=== PATIENT | male | born 1960 | race Caucasian/White ===

== ENCOUNTER 2016-07-26 16:08 | Inpatient (IN) | payer MEDICARE, MEDICAID ==
[~2016-07-26] VITALS: Ht 182.9 cm; Wt 91.6 kg
[~2016-07-26 16:08] MED LIST: CARV12.5 PO; CHRO200T3 PO; GABA300C3 PO; KLOR20TA6 PO; LANTINJ SQ; LISI40TA PO; NOVOLOGSS SQ; TAMS0.4C67 PO; VITA100T5 PO; VITA100T65 PO; VITA50TA10 PO
[2016-07-26 16:14] VITALS: BP 138/87; PULSE 81; RESP 16; TEMP 98.4; O2SAT 96
[2016-07-26] MEDS ORDERED: CORE25TA PO (16:30)
[2016-07-26] MEDS ORDERED: K-DUR PO (16:30)
[2016-07-26] MEDS ORDERED: GABA300C5 PO (16:30)
[2016-07-26] MEDS ORDERED: ASCO250C CHEW (16:30)
[2016-07-26] MEDS ORDERED: TAMS5CAP PO (16:30)
[2016-07-26] MEDS ORDERED: LISI40TA PO (16:30)
[2016-07-26] MEDS ORDERED: LANTINJ SQ (16:30)
[2016-07-26] MEDS ORDERED: VANCOMYCIN INJ 1,350 MG in SODIUM CHLORID 0.9% 500 ML INJ 500 ML IV ONE (16:45)
[2016-07-26] MEDS ORDERED: TETANUS/DIPHTHERIA TOXOID ADULT 0.5 ML VIAL IM ONE (16:45)
[2016-07-26 16:53] VITALS: RESP 16; O2SAT 96
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
[2016-07-26 17:07] LABS: AUTOMATED NEUTROPHIL # 7.3 TH/MM3 (1.8-7.7); BASOPHIL % 0.3 % (0.0-2.0); EOSINOPHIL # 0.1 TH/MM3 (0-0.4); EOSINOPHIL % 1.5 % (0.0-4.0); HEMATOCRIT 35.9 % (39.0-51.0); LYMPH % 14.4 % (9.0-44.0); LYMPHOCYTE # 1.3 TH/MM3 (1.0-4.8); MEAN CELL VOLUME 73.2 FL (80.0-100.0); MEAN CORPUSCULAR HEMOGLOBIN 23.5 PG (27.0-34.0); MEAN CORPUSCULAR HGB CONC 32.1 % (32.0-36.0); MONO % 6.9 % (0.0-8.0); NEUT % 76.9 % (16.0-70.0); PLATELET COUNT 385 TH/MM3 (150-450); RED BLOOD COUNT 4.91 MIL/MM3 (4.50-5.90); RED CELL DISTRIBUTION WIDTH 14.6 % (11.6-17.2); WHITE BLOOD COUNT 9.3 TH/MM3 (4.0-11.0)
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
[2016-07-26 17:09] LABS: HEMO FLAGS AUTO DIFF
[2016-07-26 17:18] LABS: CHLORIDE 95 MEQ/L (98-107); POTASSIUM 4.5 MEQ/L (3.5-5.1); SODIUM (NA) 132 MEQ/L (136-145)
[2016-07-26 17:22] LABS: ANION GAP 8 MEQ/L (5-15); BICARBONATE 28.9 MEQ/L (21.0-32.0)
[2016-07-26 17:24] LABS: APTT (PATIENT) 28.9 SEC (24.3-30.1); INTERNATIONAL NORMALIZED RATIO 1.2 RATIO; PROTHROMBIN TIME - PATIENT 12.8 SEC (9.8-11.6)
[2016-07-26 17:30] LABS: ALKALINE PHOSPHATASE 290 U/L (45-117); ALT (GPT) 32 U/L (12-78); AST (GOT) 30 U/L (15-37); BLOOD UREA NITROGEN 20 MG/DL (7-18); GLOMERULAR FILTRATION RATE 62 ML/MIN (>89); TOTAL BILIRUBIN ADULT 0.4 MG/DL (0.2-1.0)
[2016-07-26] MEDS ORDERED: cefTRIAXone INJ 2,000 MG in SODIUM CHLORIDE 0.9% INJ 100 ML IV ONE (17:45)
[2016-07-26 17:55] LABS: BLOOD, URINE LARGE (NEG); KETONE, URINE NEG (NEG); NITRITE,URINE NEG (NEG); PH, URINE 5.5 (5.0-8.5)
[2016-07-26 18:00] LABS: GLUCOSE,URINE 1000 OR GREATER mg/dL (NEG)
[2016-07-26] MEDS ORDERED: INSULIN HUMAN REGULAR 1,000 UNITS/10 ML VIAL SQ ONE (18:00)
[2016-07-26 18:02] LABS: PLATELET ESTIMATE SMEAR NORMAL (NORMAL); PLATELET MORPHOLOGY NORMAL (NORMAL); SCAN/DIFF AUTO DIFF CONFIRMED
[2016-07-26 18:10] LABS: URINE COLOR AMBER (YELLW/STRAW)
[2016-07-26 18:13] LABS: BACTERIA, URINE FEW /hpf; RBC, URINE INNUM /hpf (0-3); SQUAMOUS EPITHELIAL CELL URINE 0-2 /hpf (0-5)
[2016-07-26 18:14] LABS: COMMENT (UR) CULTURE INDICATED; CULTURE IF INDICATED CULTURE INDICATED
[2016-07-26] MEDS ORDERED: MORPHINE SULFATE 4 MG/ML INJ IV PUSH ONE ×2 (18:30→21:00)
[2016-07-26] MEDS ORDERED: GADODIAMIDE PF 287 MG/ML 20 ML VIAL (for RAD MRI) IV ONE (19:37)
[2016-07-26 19:55] VITALS: BP 150/86; PULSE 71; RESP 18; TEMP 98.3; O2SAT 94
[2016-07-26] MEDS ORDERED: INSULIN HUMAN REGULAR 1,000 UNITS/10 ML VIAL IVP ONE (20:15)
--- NOTE | 2016-07-26 20:16 | PD ---
Physical Exam Time Seen by Provider: 20:[address] Ferguson with this patient with me to review the MRI of the right foot and to make a disposition. The patient also has an elevated blood sugar of 456 drawn at 1650. He has received 8 units of Novolin R at 1800 and the Accu-Chek now is 316. He will get another 8 units of regular insulin. Data Data Last Documented VS Vital Signs Date Time Temp Pulse Resp B/P Pulse Ox O2 Delivery O2 Flow Rate FiO2 07/26/16 19:55 98.3 71 18 150/86 94 Room Air Orders Complete Blood Count With Diff (07/26/16 16:40) Comprehensive Metabolic Panel (07/26/16 16:40) Prothrombin Time / Inr (Pt) (07/26/16 16:40) Act Partial Throm Time (Ptt) (07/26/16 16:40) Lactic Acid Sepsis Protocol (07/26/16 16:40) Urinalysis - C+S If Indicated (07/26/16 16:40) Blood Culture (07/26/16 16:40) Iv Access Insert/Monitor (07/26/16 16:40) Oximetry (07/26/16 16:40) Foot, Complete ([id number]) (07/26/16 ) Vancomycin Inj (Vancomycin Inj) (07/26/16 16:45) Tetanus/Diphtheria Tox Adult (Tetanus/Di (07/26/16 16:45) Ceftriaxone Inj (Rocephin Inj) (07/26/16 17:45) Consult Podiatry (07/26/16 ) (Hub Use Only)Inp Phy Cons/Ref (07/26/16 ) Insulin Human Regular Inj (Novolin R Inj (07/26/16 18:00) Urine Culture (07/26/16 17:30) Morphine Inj (Morphine Inj) (07/26/16 18:30) Mri Foot W&W/O Contrast (07/26/16 ) Gadodiamide Pf Inj (Omniscan Pf Inj) (07/26/16 19:37) Insulin Human Regular Inj (Novolin R Inj (07/26/16 20:15) Morphine Inj (Morphine Inj) (07/26/16 21:00) Labs Laboratory Tests Test 07/26/16 07/26/16 07/26/16 16:45 16:50 17:30 Lactic Acid Level 1.4 mmol/L White Blood Count 9.3 TH/MM3 Red Blood Count 4.91 MIL/MM3 Hemoglobin 11.5 GM/DL Hematocrit 35.9 % Mean Corpuscular Volume 73.2 FL Mean Corpuscular Hemoglobin 23.5 PG Mean Corpuscular Hemoglobin 32.1 % Concent Red Cell Distribution Width 14.6 % Platelet Count 385 TH/MM3 Mean Platelet Volume 7.8 FL Neutrophils (%) (Auto) 76.9 % Lymphocytes (%) (Auto) 14.4 % Monocytes (%) (Auto) 6.9 % Eosinophils (%) (Auto) 1.5 % Basophils (%) (Auto) 0.3 % Neutrophils # (Auto) 7.3 TH/MM3 Lymphocytes # (Auto) 1.3 TH/MM3 Monocytes # (Auto) 0.6 TH/MM3 Eosinophils # (Auto) 0.1 TH/MM3 Basophils # (Auto) 0.0 TH/MM3 CBC Comment AUTO DIFF Differential Comment AUTO DIFF CONFIRMED Platelet Estimate NORMAL Platelet Morphology Comment NORMAL Prothrombin Time 12.8 SEC Prothromb Time International 1.2 RATIO Ratio Activated Partial 28.9 SEC Thromboplast Time Sodium Level 132 MEQ/L Potassium Level 4.5 MEQ/L Chloride Level 95 MEQ/L Carbon Dioxide Level 28.9 MEQ/L Anion Gap 8 MEQ/L Blood Urea Nitrogen 20 MG/DL Creatinine 1.20 MG/DL Estimat Glomerular Filtration 62 ML/MIN Rate Random Glucose 456 MG/DL Calcium Level 8.8 MG/DL Total Bilirubin 0.4 MG/DL Aspartate Amino Transf 30 U/L (AST/SGOT) Alanine Aminotransferase 32 U/L (ALT/SGPT) Alkaline Phosphatase 290 U/L Total Protein 8.6 GM/DL Albumin 2.0 GM/DL Urine Color FELICIANO Urine Turbidity HAZY Urine pH 5.5 Urine Specific [place] GREATER THAN 1.035 Urine Protein 100 mg/dL Urine Glucose (UA) 1000 OR GREATER mg/dL Urine Ketones NEG mg/dL Urine Occult Blood LARGE Urine Nitrite NEG Urine Bilirubin NEG Urine Leukocyte Esterase NEG Urine RBC INNUM /hpf Urine WBC 20-24 /hpf Urine WBC Clumps FEW Urine Squamous Epithelial 0-2 /hpf Cells Urine Bacteria FEW /hpf Microscopic Urinalysis Comment CULTURE INDICATED MDM Medical Record Reviewed: Yes Supervised Visit with ADAM: Yes Interpretation(s) The MRI of the left foot with and without contrast shows distractive change an abnormal enhancement involving the base of the first metatarsal consistent with osteomyelitis. The patient also has subluxation/dislocation of the second through fifth metatarsals with extensive degenerative change in the metatarsal tarsal joints. The CBC shows a hemoglobin of 11.5, hematocrit of 35.9 with 77% neutrophils but is otherwise unremarkable. The urine shows feliciano color, hazy turbidity, specific gravity of greater than 1.035, 100 protein, 1000 or greater glucose, large occult blood, innumerable red cells with 20-24 white cells and few white cell clumping's and few bacteria and culture is indicated. The coagulation profile shows ProTime of 12.8, INR 1.2, APTT of 28.9. The complete metabolic profile shows a sodium of 132, BUN 20, GFR of 62, glucose 456 with alkaline phosphatase 290, total protein 8.6 and albumin 2.0. Lactic acid is normal. At 2100, the Accu-Chek is 187. Differential Diagnosis Osteomyelitis right foot, cellulitis right foot, diabetes mellitus poor control , dehydration, electrolyte disorder, septic arthritis, urinary tract infection Narrative Course The patient has osteomyelitis of the right first metatarsal. He also has diabetes mellitus poor control. We did reduce the sugar to 187 here in emergency department thus far, he came in with a blood sugar of 456. He has no primary care physician. Physician Communication Physician Communication I discussed the patient with doctors Parvez and Mihir. The patient will be admitted to [facility] because Dr. Ash needs to do surgery there. The patient will be admitted to Dr. Hannon. Diagnosis Primary Impression: Osteomyelitis of ankle or foot, left, acute Additional Impressions: Septic arthritis Qualified Code: M00.9 - Septic arthritis of left foot, due to unspecified organism Hyperglycemia due to type 2 diabetes mellitus Qualified Code: E11.65 - Type 2 diabetes mellitus with hyperglycemia, with long-term current use of insulin UTI (urinary tract infection) Qualified Code: N30.01 - Acute cystitis with hematuria Admitting Information Admitting Physician Requests: Admit Andrew Vera MD Jul 26, 2016 20:15
--- NOTE | 2016-07-26 20:17 | RADHPO ---
EXAM DATE/TIME: 07/26/2016 19:25 [facility] COMPARISON: FOOT LEFT COMPLETE ([id number]), July 26, 2016, 16:53. INDICATIONS : Osteomyelitis. Wound mid left foot on plantar surface. CONTRAST: 18 cc Omniscan (gadodiamide) IV MEDICAL HISTORY : Hypertension. Diabetes mellitus type 2. Carcinoma, testicular. SURGICAL HISTORY : Testicle removed with implant. ENCOUNTER: Subsequent ACUITY: 3 months PAIN SCORE: 6/10 LOCATION: Left foot. TECHNIQUE: Multiplanar, multisequence MRI examination was performed without contrast and after the intravenous a dministration of gadolinium. FINDINGS: There is extensive destructive change involving the base of the first metatarsal which appears expand ed and poorly defined. The margins the bones are difficult to identify and there is narrow edema and abnormal enhancement mid and proximal first metatarsal. There is extensive adjacent soft tissue swell ing and enhancement in this region. There is a focal ulcer along the medial volar surface of the midf oot with ill-defined fluid collection at the level of the base of the first metatarsal. This demonstr ates peripheral enhancement and low signal fluid centrally. This measures up to approximately 2.6 x 1 .1 cm in greatest diameter and is consistent with an abscess. There is an adjacent smaller fluid nataly ection more distally in the volar soft tissues with peripheral enhancement and central fluid collecti on measuring approximately 9-10 mm in greatest diameter. The second through fifth metatarsal bases appear subluxed or dislocated laterally as on the plain jyoti m. These demonstrate no definite enhancement or destructive change. Extensive degenerative changes ar e noted in the metatarsal tarsal joints with surrounding diffuse soft tissue swelling and prominence. CONCLUSION: 1. Destructive change and abnormal enhancement involving the base of the first metatarsal consistent with osteo-myelitis. 2. Adjacent enhancing fluid collections consistent with abscesses in the volar soft tissues. This is adjacent to the known ulcer. 3. Subluxation/dislocation of the second through fifth metatarsals with extensive degenerative change in the metatarsal tarsal joints. Oscar Bazan MD on July 26, 2016 at 20:01 Board Certified Radiologist. This report was verified electronically.
[2016-07-26] MEDS ORDERED: Vancomycin Consult Pharmacy 1 EA OTHER SCH (21:15)
[2016-07-26] MEDS ORDERED: SODIUM CHLORIDE 0.9% FLUSH 5 ML FLUSH FLUSH PRN (21:15)
[2016-07-26] MEDS ORDERED: NALOXONE HCL 0.4 MG/ML AMP IV PRN (21:15)
[2016-07-26] MEDS: PIPERACIL-TAZO 4.5 GM PREMIX 100 ML IV SCH (21:55)
[2016-07-26 23:30] VITALS: BP 119/73; PULSE 71; RESP 18; TEMP 98.3; O2SAT 96
[2016-07-27] VITALS (8 sets, daily range): BP systolic 146–208; BP diastolic 82–111; PULSE 68–90; RESP 16–20; TEMP 96.8–98.1; O2SAT 93–99
[2016-07-27] MEDS: MORPHINE SULFATE 4 MG/ML INJ IV PUSH PRN ×4 (00:16→15:46)
[2016-07-27] MEDS: PIPERACIL-TAZO 4.5 GM PREMIX 100 ML IV SCH ×4 (03:54→22:42)
[2016-07-27 06:12] LABS: AUTOMATED NEUTROPHIL # 6.8 TH/MM3 (1.8-7.7); BASOPHIL # 0.1 TH/MM3 (0-0.2); BASOPHIL % 0.7 % (0.0-2.0); EOSINOPHIL # 0.3 TH/MM3 (0-0.4); EOSINOPHIL % 2.7 % (0.0-4.0); HEMATOCRIT 32.7 % (39.0-51.0); LYMPH % 19.2 % (9.0-44.0); LYMPHOCYTE # 1.9 TH/MM3 (1.0-4.8); MEAN CELL VOLUME 73.9 FL (80.0-100.0); MEAN CORPUSCULAR HEMOGLOBIN 24.2 PG (27.0-34.0); MEAN CORPUSCULAR HGB CONC 32.8 % (32.0-36.0); MONO % 6.9 % (0.0-8.0); NEUT % 70.5 % (16.0-70.0); PLATELET COUNT 343 TH/MM3 (150-450); RED BLOOD COUNT 4.42 MIL/MM3 (4.50-5.90); RED CELL DISTRIBUTION WIDTH 14.8 % (11.6-17.2); WHITE BLOOD COUNT 9.8 TH/MM3 (4.0-11.0)
[2016-07-27 06:13] LABS: HEMO FLAGS AUTO DIFF
[2016-07-27 06:19] LABS: POTASSIUM 4.3 MEQ/L (3.5-5.1)
[2016-07-27 06:22] LABS: BICARBONATE 29.5 MEQ/L (21.0-32.0)
[2016-07-27 06:26] LABS: PLATELET ESTIMATE SMEAR NORMAL (NORMAL); PLATELET MORPHOLOGY NORMAL (NORMAL); SCAN/DIFF AUTO DIFF CONFIRMED
[2016-07-27] MEDS: LACTOBACILLUS ACIDOPHILUS TAB PO SCH ×3 (09:00→17:48)
[2016-07-27] MEDS: SODIUM CHLORIDE 0.9% FLUSH 5 ML FLUSH FLUSH SCH ×2 (09:02→21:00)
[2016-07-27] MEDS ORDERED: DEXTROSE 50% IN WATER 50 ML VIAL(D50) IV PUSH PRN (09:15)
[2016-07-27] MEDS ORDERED: GLUCAGON 1 MG/ML VIAL OTHER PRN (09:15)
[2016-07-27] MEDS ORDERED: ACETAMINOPHEN 1000 MG/100 ML VIAL IV ONE (09:30)
[2016-07-27] MEDS: SODIUM CHLOR 0.9% 1000 ML INJ 1,000 ML IV SCH (09:39)
[2016-07-27] MEDS: VANCOMYCIN INJ 2,000 MG in SODIUM CHLORID 0.9% 500 ML INJ 500 ML IV SCH (11:36)
[2016-07-27] MEDS ORDERED: ONDANSETRON HCL 4 MG/2 ML VIAL IV PUSH ONE (12:00)
[2016-07-27] MEDS ORDERED: PROPOFOL 200 MG/20 ML AMP IV ONE (12:00)
[2016-07-27] MEDS: INSULIN NovoLIN REGULAR SUPPLEMENTAL SCALE SQ SCH ×3 (12:00→21:00)
[2016-07-27] MEDS ORDERED: PHENYLEPH/NS 1000 MCG/10 ML SYR IV ONE (12:00)
[2016-07-27] MEDS ORDERED: ePHEDrine/NS 25 MG/5 ML SYR IV ONE (12:00)
[2016-07-27] MEDS ORDERED: POTA-163 PO (16:02)
[2016-07-27] MEDS: LISINOPRIL 20 MG TAB PO SCH (17:44)
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
[2016-07-27] MEDS ORDERED: LIDOCAINE HCL 2% 50 ML VIAL ONE (18:36)
[2016-07-27] MEDS ORDERED: BUPIVACAINE HCL PF 0.5% 30 ML VIAL ONE (18:36)
[2016-07-27] MEDS: CARVEDILOL 12.5 MG TAB PO SCH (19:11)
[2016-07-27] MEDS ORDERED: GENTAMICIN SULFATE 80 MG/2 ML VIAL ONE (19:13)
[2016-07-27] MEDS ORDERED: NEOMYCIN/POLYMYXIN 1 ML G.U. IRRIGANT IR ONE (19:59)
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
--- NOTE | 2016-07-27 20:58 | HHI.PR ---
Immediate Post Op Note Procedure Date: Jul 27, 2016 Pre Op Diagnosis: Abscess with charcot vs osteomyelitis L foot Post Op Diagnosis: Same Surgeon: Mane Ash DPM Tow Motor Driver(s): Staff Procedure: Incision and drainage Left foot with bone biopsy Findings: Consistent with diagnosis. Plantar medial ulceration excised and tract probed to bone of base of 2nd metatarsal area. The bone was removed and sent to pathology for bone biopsy to determine if infected. Minimal purulence noted and no necrotic tissue noted. No tracking noted. All tissues appeared viable and were healthy/bleeding, except immediate wound area, which was excised in full. The wound was copiously irrigated with 3L NS with gentamicin, and closed with 2- 0 nylon. Will await bone biopsy to determine if further surgery required If required, plan to do Sunday Complications: none Specimen(s) removed: bone L foot to pathology culture L foot Estimated blood loss: 20mL Anesthesia: General, Local (4mL 2% lidocaine plain, 4mL 0.5% marcaine plain) Drains: None IVF Tourniquet time (min at mmHg) n/a Patient to: PACU Patient Condition: Good Date/Time of Procedure: SEE SURGICAL CARE RECORD Mane Ash DPM Jul 27, 2016 20:58
[2016-07-27] MEDS ORDERED: LABETALOL HCL 100 MG/20 ML VIAL ONE (21:08)
[2016-07-27] MEDS ORDERED: MORPHINE SULFATE 4 MG/ML INJ ONE (21:16)
[2016-07-27] MEDS ORDERED: hydrALAZINE HCL 20 MG/ML VIAL ONE (21:44)
[2016-07-27] MEDS ORDERED: DO NOT ADM ANY ANTICOAGULANT DRUGS XX PRN (21:45)
[2016-07-27] MEDS ORDERED: hydrALAZINE HCL 20 MG/ML VIAL IV ONE (21:48)
--- NOTE | 2016-07-27 22:44 | RADRPT ---
EXAM DATE/TIME: 07/27/2016 21:06 [facility] COMPARISON: FOOT LEFT COMPLETE ([id number]), July 26, 2016, 16:53. INDICATIONS : Post Op I&D Left Foot. MEDICAL HISTORY : Hypertension. Diabetes mellitus type 2. Carcinoma, testicular. SURGICAL HISTORY : Testicle removed with implant. ENCOUNTER: Initial ACUITY: 1 day PAIN SCORE: 0/10 LOCATION: Left Foot. FINDINGS: Advanced bony changes of Charcot foot again noted. Focal areas of osteopenia involving the first meta tarsal as well as the bases of the lateral metatarsals again noted worrisome for osteomyelitis. Soft tissue air and swelling, mainly medial forefoot and midfoot region. No evidence of operative complica tion. CONCLUSION: Postoperative appearance with little change Rogerio Caicedo MD on July 27, 2016 at 22:40 Board Certified Radiologist. This report was verified electronically.
[2016-07-27 23:37] LABS: AUTOMATED NEUTROPHIL # 7.1 TH/MM3 (1.8-7.7); BASOPHIL # 0.1 TH/MM3 (0-0.2); BASOPHIL % 0.7 % (0.0-2.0); EOSINOPHIL # 0.2 TH/MM3 (0-0.4); EOSINOPHIL % 2.4 % (0.0-4.0); HEMATOCRIT 33.6 % (39.0-51.0); LYMPH % 14.8 % (9.0-44.0); LYMPHOCYTE # 1.4 TH/MM3 (1.0-4.8); MEAN CELL VOLUME 73.6 FL (80.0-100.0); MEAN CORPUSCULAR HEMOGLOBIN 24.6 PG (27.0-34.0); MEAN CORPUSCULAR HGB CONC 33.5 % (32.0-36.0); MONO % 7.3 % (0.0-8.0); NEUT % 74.8 % (16.0-70.0); PLATELET COUNT 330 TH/MM3 (150-450); RED BLOOD COUNT 4.57 MIL/MM3 (4.50-5.90); RED CELL DISTRIBUTION WIDTH 15.8 % (11.6-17.2); WHITE BLOOD COUNT 9.5 TH/MM3 (4.0-11.0)
[2016-07-27 23:40] LABS: HEMO FLAGS AUTO DIFF
[2016-07-28] VITALS (9 sets, daily range): BP systolic 116–177; BP diastolic 59–85; PULSE 73–87; RESP 16–24; TEMP 96.1–97.5; O2SAT 91–97
[2016-07-28 00:07] LABS: BICARBONATE 26.8 MEQ/L (21.0-32.0)
[2016-07-28 01:43] LABS: PLATELET ESTIMATE SMEAR NORMAL (NORMAL); PLATELET MORPHOLOGY NORMAL (NORMAL); SCAN/DIFF AUTO DIFF CONFIRMED
[2016-07-28] MEDS: PIPERACIL-TAZO 4.5 GM PREMIX 100 ML IV SCH ×4 (04:21→22:18)
[2016-07-28] MEDS: INSULIN NovoLIN REGULAR SUPPLEMENTAL SCALE SQ SCH ×4 (05:03→20:07)
[2016-07-28] MEDS: VANCOMYCIN INJ 2,000 MG in SODIUM CHLORID 0.9% 500 ML INJ 500 ML IV SCH ×2 (05:04→23:18)
[2016-07-28] MEDS: SODIUM CHLOR 0.9% 1000 ML INJ 1,000 ML IV SCH ×2 (05:12→15:15)
[2016-07-28] MEDS: SODIUM CHLORIDE 0.9% FLUSH 5 ML FLUSH FLUSH SCH ×2 (09:00→20:08)
[2016-07-28] MEDS: LACTOBACILLUS ACIDOPHILUS TAB PO SCH ×3 (09:00→16:42)
[2016-07-28] MEDS: LISINOPRIL 20 MG TAB PO SCH (09:00)
[2016-07-28] MEDS: CARVEDILOL 12.5 MG TAB PO SCH ×2 (09:00→20:07)
[2016-07-28] MEDS: ACETAMINOPHEN 1000 MG/100 ML VIAL IV PRN ×2 (16:37→22:18)
[2016-07-28] MEDS: cloNIDine HCL 0.1 MG TAB PO PRN (17:35)
--- NOTE | 2016-07-28 20:31 | PD.POD ---
Subjective Podiatric Problems Infection L foot, charcot vs osteomyelitis s/p I&D with bone biopsy L foot 07/27/16 Mihir Past Med/Surg/Social History Past Medical History Endocrine: REPORTS HX OF: Diabetes mellitus Cardiovascular: REPORTS HX OF: Hypertension Musculoskeletal: REPORTS HX OF: Osteoarthritis Cancer - male: REPORTS HX OF: Testicular cancer Social History Smoking Status: Never Smoker Objective Vital Signs Vital Signs Date Time Temp Pulse Resp B/P Pulse Ox O2 Delivery O2 Flow Rate FiO2 07/28/16 19:55 78 07/28/16 19:50 96.3 79 20 133/69 94 07/28/16 16:00 96.4 82 17 168/85 93 07/28/16 11:46 96.1 74 17 165/83 94 07/28/16 08:54 96.9 82 16 167/85 93 07/28/16 04:00 97.5 83 20 154/83 91 07/28/16 02:42 77 07/28/16 00:00 96.7 87 20 116/59 97 07/27/16 22:20 97.4 82 14 132/79 97 Nasal Cannula 3 07/27/16 22:00 78 14 159/89 97 Nasal Cannula 3 07/27/16 21:46 77 14 181/105 97 Nasal Cannula 3 07/27/16 21:30 75 14 181/102 97 Nasal Cannula 3 07/27/16 21:15 85 16 184/98 96 Nasal Cannula 3 07/27/16 21:00 85 16 170/98 96 Nasal Cannula 3 07/27/16 21:00 73 19 177/100 96 Nasal Cannula 3 07/27/16 20:45 80 17 166/96 96 Nasal Cannula 3 07/27/16 20:35 98.4 80 16 145/83 96 Nasal Cannula 3 Coded Allergies: Glyburide (Verified Allergy, Severe, RASH, 07/26/16) Physical Exam Remarks Bandage clean, dry, intact L foot Assessment & Plan A/P Infection L foot, charcot vs osteomyelitis s/p I&D with bone biopsy L foot 07/27/16 Mihir Await bone biopsy. Further surgery vs 6 weeks IV antibiotics pending results. NWB L foot with walker Mane Ash DPM Jul 28, 2016 20:31
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
[2016-07-28] MEDS ORDERED: PHARMACY ORDERED LAB XX ONE (22:45)
[2016-07-28] MEDS ORDERED: LIDOCAINE HCL 5% PATCH TD ONE (23:00)
--- NOTE | 2016-07-29 00:48 | HHI.PR ---
Subjective Remarks deferred entry - patient seen at 5 pm patient states that he had hematuria and thinks it is the morphine and opiates causing it, so refuses to take them denies cp/sob c/o pain in post surgical extremity Bp elevated denie fevers/chills Objective Vitals Vital Signs Date Time Temp Pulse Resp B/P Pulse Ox O2 Delivery O2 Flow Rate FiO2 07/28/16 23:17 96.3 73 24 177/82 96 07/28/16 19:55 78 07/28/16 19:50 96.3 79 20 133/69 94 07/28/16 16:00 96.4 82 17 168/85 93 07/28/16 11:46 96.1 74 17 165/83 94 07/28/16 08:54 96.9 82 16 167/85 93 07/28/16 04:00 97.5 83 20 154/83 91 07/28/16 02:42 77 I/O 07/28/16 07/28/16 07/28/16 07/29/16 07/29/16 07/29/16 07:00 15:00 23:00 07:00 15:00 23:00 Intake Total 895 ml 1210 ml 592 ml Output Total 200 ml Balance 695 ml 1210 ml 592 ml Intake Oral 240 ml 600 ml 480 ml IV Total 655 ml 610 ml 112 ml Output Urine Total 200 ml # Voids 2 6 # Bowel Movements 0 1 0 Result Diagram: 07/27/166 07/27/16 2316 Imaging Last Impressions Foot X-Ray 07/27/16 0000 Signed Impressions: Service Date/Time: July 21:06 - CONCLUSION: Postoperative appearance with little change Rogerio Caicedo MD Foot MRI 07/26/16 0000 Signed Impressions: Service Date/Time: Tuesday, July 26, 2016 19:25 - CONCLUSION: 1. Destructive change and abnormal enhancement involving the base of the first metatarsal consistent with osteo-myelitis. 2. Adjacent enhancing fluid collections consistent with abscesses in the volar soft tissues. This is adjacent to the known ulcer. 3. Subluxation/dislocation of the second through fifth metatarsals with extensive degenerative change in the metatarsal tarsal joints. Oscar Bazan MD Objective Remarks GENERAL: This is a well-nourished, well-developed patient, in no apparent distress. SKIN: Left foot edematous dressing present C/D/I HEAD: Atraumatic. Normocephalic. No temporal or scalp tenderness. EYES:Extraocular motions intact. No scleral icterus. No injection or drainage. ENT: Nose without bleeding, purulent drainage or septal hematoma. Throat without erythema, tonsillar hypertrophy or exudate. Uvula midline. Airway patent. NECK: Trachea midline. No JVD or lymphadenopathy. Supple, nontender, no meningeal signs. CARDIOVASCULAR: Regular rate and rhythm without murmurs, gallops, or rubs. RESPIRATORY: Clear to auscultation. Breath sounds equal bilaterally. No wheezes , rales, or rhonchi. GASTROINTESTINAL: Abdomen soft, non-tender, nondistended. No guarding. MUSCULOSKELETAL: Extremities without clubbing, cyanosis, or edema. No joint tenderness, effusion, or edema noted. No calf tenderness. Negative Homans sign bilaterally. NEUROLOGICAL: Awake and alert. no focal deficits. Motor and sensory grossly within normal limits. Five out of 5 muscle strength in all muscle groups. Normal speech. A/P Assessment and Plan Mr. 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 Patient found to have Osteomyelitis of toe Osteomyelitis of left foot Pain left foot MRI reveals: Destructive change and abnormal enhancement involving the base of the first metatarsal consistent with osteo-myelitis. 2. Adjacent enhancing fluid collections consistent with abscesses in the volar soft tissues. This is adjacent to the known ulcer. 3. Subluxation/dislocation of the second through fifth metatarsals with extensive degenerative change in the metatarsal tarsal joints. Left foot x ray reviewed by haylie reveals: Grossly abnormal examination suspicious of osteomyelitis and septic arthritis bluxation is at the metatarsal tarsal articulations Blood cultures obtained x2 pending Patient currently on Vancomycin, Zosyn and Rocephin IV 07/28 podiatry consulted. Patient is sp Incision and debridement of the left foot w bone biopsy. fu pathology results. Type 2 diabetes mellitus - Accu-Cheks before meals at bedtime with NovoLog sliding scale insulin 07/28 Bs w imprved control Hypertension/CHF - Resume home medication- Lisinopril 40 mg daily and Coreg 25 mg twice a day - Bp still uncontrolled. Likely due to pain. Will Rx Toradol and IV Acetaminophen. - Clonidine PRN CAD s/p proximal LAD stenting 2006 -Patient reports he has not been on Plavix since 2014 -Does take aspirin 81 mg daily at home- hold aspirin at this time pending surgical procedure Microcytic anemia- hemoglobin 10.7 MCV MCV 73.9 - hemoglobin stable at 11.7 DVT prophylaxis - SCDs Berhane Cain MD Jul 29, 2016 00:48
[2016-07-29] MEDS: SODIUM CHLOR 0.9% 1000 ML INJ 1,000 ML IV SCH ×3 (01:15→20:05)
[2016-07-29] MEDS: PIPERACIL-TAZO 4.5 GM PREMIX 100 ML IV SCH ×4 (03:33→22:06)
[2016-07-29 03:35] VITALS: BP 166/74; PULSE 72; RESP 20; TEMP 96.2; O2SAT 95
[2016-07-29] MEDS: ACETAMINOPHEN 1000 MG/100 ML VIAL IV PRN ×2 (03:39→20:04)
[2016-07-29] MEDS: INSULIN NovoLIN REGULAR SUPPLEMENTAL SCALE SQ SCH ×4 (06:20→20:02)
[2016-07-29 06:49] LABS: AUTOMATED NEUTROPHIL # 4.7 TH/MM3 (1.8-7.7); BASOPHIL # 0.1 TH/MM3 (0-0.2); BASOPHIL % 0.9 % (0.0-2.0); EOSINOPHIL # 0.3 TH/MM3 (0-0.4); EOSINOPHIL % 3.6 % (0.0-4.0); HEMATOCRIT 32.9 % (39.0-51.0); LYMPH % 22.1 % (9.0-44.0); LYMPHOCYTE # 1.6 TH/MM3 (1.0-4.8); MEAN CELL VOLUME 73.8 FL (80.0-100.0); MEAN CORPUSCULAR HEMOGLOBIN 24.4 PG (27.0-34.0); MEAN CORPUSCULAR HGB CONC 33.1 % (32.0-36.0); MONO % 9.7 % (0.0-8.0); NEUT % 63.7 % (16.0-70.0); PLATELET COUNT 333 TH/MM3 (150-450); RED BLOOD COUNT 4.46 MIL/MM3 (4.50-5.90); RED CELL DISTRIBUTION WIDTH 15.9 % (11.6-17.2); WHITE BLOOD COUNT 7.4 TH/MM3 (4.0-11.0)
[2016-07-29 06:56] LABS: ANION GAP 10 MEQ/L (5-15); AST (GOT) 15 U/L (15-37); BICARBONATE 23.5 MEQ/L (21.0-32.0); BLOOD UREA NITROGEN 11 MG/DL (7-18); CHLORIDE 100 MEQ/L (98-107); GLOMERULAR FILTRATION RATE 75 ML/MIN (>89); POTASSIUM 3.8 MEQ/L (3.5-5.1); SODIUM (NA) 133 MEQ/L (136-145)
[2016-07-29 07:01] LABS: ALKALINE PHOSPHATASE 211 U/L (45-117); ALT (GPT) 21 U/L (12-78); TOTAL BILIRUBIN ADULT 0.5 MG/DL (0.2-1.0)
[2016-07-29 07:24] LABS: HEMO FLAGS AUTO DIFF
[2016-07-29 08:00] VITALS: BP 162/89; PULSE 73; RESP 18; TEMP 95.6; O2SAT 96
[2016-07-29] MEDS: SODIUM CHLORIDE 0.9% FLUSH 5 ML FLUSH FLUSH SCH ×2 (08:45→20:03)
[2016-07-29] MEDS: LACTOBACILLUS ACIDOPHILUS TAB PO SCH ×3 (08:45→16:13)
[2016-07-29] MEDS: LISINOPRIL 20 MG TAB PO SCH (08:45)
[2016-07-29] MEDS: CARVEDILOL 12.5 MG TAB PO SCH ×2 (08:45→20:03)
[2016-07-29 09:49] LABS: SCAN/DIFF AUTO DIFF CONFIRMED
[2016-07-29 12:00] VITALS: BP 184/92; PULSE 76; RESP 18; TEMP 96.2; O2SAT 98
[2016-07-29] MEDS ORDERED: REMOVE OLD PATCH TD ONE (12:00)
[2016-07-29] MEDS: VANCOMYCIN INJ 1,500 MG in SODIUM CHLORID 0.9% 500 ML INJ 500 ML IV SCH (12:08)
[2016-07-29] MEDS: DOXAZOSIN MESYLATE 2 MG TAB PO SCH (12:15)
[2016-07-29 13:08] LABS: HDL CHOLESTEROL 26.5 MG/DL (40.0-60.0); LDL CHOLESTEROL 102 MG/DL (0-99)
[2016-07-29] MEDS: LIDOCAINE HCL 5% PATCH TD SCH (14:14)
[2016-07-29 16:00] VITALS: BP 160/100; PULSE 76; RESP 18; TEMP 97; O2SAT 99
[2016-07-29] MEDS: KETOROLAC TROMETHAMINE 60 MG/2 ML (IM) VIAL IM PRN ×2 (16:12→22:13)
[2016-07-29] MEDS: cloNIDine HCL 0.1 MG TAB PO PRN (16:12)
[2016-07-29 17:10] VITALS: BP 144/92
--- NOTE | 2016-07-29 18:13 | PD.POD ---
Subjective Podiatric Problems Infection L foot, charcot vs osteomyelitis s/p I&D with bone biopsy L foot 07/27/16 Mihir Past Med/Surg/Social History Past Medical History Endocrine: REPORTS HX OF: Diabetes mellitus Cardiovascular: REPORTS HX OF: Hypertension Musculoskeletal: REPORTS HX OF: Osteoarthritis Cancer - male: REPORTS HX OF: Testicular cancer Social History Smoking Status: Never Smoker Objective Vital Signs Vital Signs Date Time Temp Pulse Resp B/P Pulse Ox O2 Delivery O2 Flow Rate FiO2 07/29/16 17:10 144/92 Automatic Cuff 07/29/16 16:00 97.0 76 18 160/100 99 07/29/16 12:00 96.2 76 18 184/92 98 07/29/16 08:00 95.6 73 18 162/89 96 07/29/16 03:35 96.2 72 20 166/74 95 07/28/16 23:17 96.3 73 24 177/82 96 07/28/16 19:55 78 07/28/16 19:50 96.3 79 20 133/69 94 Coded Allergies: Glyburide (Verified Allergy, Severe, RASH, 07/26/16) Physical Exam Remarks Incision clean, dry. Erythema appears to be resolving. No drainage. Assessment & Plan A/P Infection L foot, charcot vs osteomyelitis s/p I&D with bone biopsy L foot 07/27/16 Mihir Still awaiting bone biopsy to determine if further surgery required vs 6 weeks IV antibiotics pending results. NWB L foot with walker vs crutches Changed bandage today. Ok to leave intact until dressing change in clinic upon d/c next week. Mane Ash DPM Jul 29, 2016 18:13
[2016-07-29 19:45] VITALS: BP 140/56; PULSE 76; RESP 18; TEMP 97.7; O2SAT 93
[2016-07-29] MEDS: GABAPENTIN 300 MG CAP PO SCH (20:03)
[2016-07-29] MEDS: TAMSULOSIN HCL 0.4 MG CAP PO SCH (20:03)
[2016-07-29] MEDS: REMOVE OLD PATCH T-DERMAL SCH (20:04)
[2016-07-29] MEDS ORDERED: INSULIN DETEMIR 100 UNITS/ML VIAL SQ SCH (21:00)
--- NOTE | 2016-07-29 21:36 | HHI.PR ---
Subjective Remarks Bp elevated Blood sugar in the 300's States had 3 BM's pain controlled denies cp sob Objective Vitals Vital Signs Date Time Temp Pulse Resp B/P Pulse Ox O2 Delivery O2 Flow Rate FiO2 07/29/16 19:45 97.7 76 18 140/56 93 07/29/16 17:10 144/92 Automatic Cuff 07/29/16 16:00 97.0 76 18 160/100 99 07/29/16 12:00 96.2 76 18 184/92 98 07/29/16 08:00 95.6 73 18 162/89 96 07/29/16 03:35 96.2 72 20 166/74 95 07/28/16 23:17 96.3 73 24 177/82 96 I/O 07/28/16 07/28/16 07/28/16 07/29/16 07/29/16 07/29/16 07:00 15:00 23:00 07:00 15:00 23:00 Intake Total 895 ml 1210 ml 592 ml 600 ml 960 ml Output Total 200 ml 600 ml Balance 695 ml 1210 ml 592 ml 0 ml 960 ml Intake Oral 240 ml 600 ml 480 ml 600 ml 960 ml IV Total 655 ml 610 ml 112 ml Output Urine Total 200 ml 600 ml # Voids 2 6 6 # Bowel Movements 0 1 0 0 3 Result Diagram: 07/29/16 0547 07/29/16 0547 Imaging Last Impressions Foot X-Ray 07/27/16 0000 Signed Impressions: Service Date/Time: July 21:06 - CONCLUSION: Postoperative appearance with little change Rogerio Caicedo MD Foot MRI 07/26/16 0000 Signed Impressions: Service Date/Time: Tuesday, July 26, 2016 19:25 - CONCLUSION: 1. Destructive change and abnormal enhancement involving the base of the first metatarsal consistent with osteo-myelitis. 2. Adjacent enhancing fluid collections consistent with abscesses in the volar soft tissues. This is adjacent to the known ulcer. 3. Subluxation/dislocation of the second through fifth metatarsals with extensive degenerative change in the metatarsal tarsal joints. Oscar Bazan MD Objective Remarks GENERAL: This is a well-nourished, well-developed patient, in no apparent distress. SKIN: Left foot edematous dressing present C/D/I HEAD: Atraumatic. Normocephalic. No temporal or scalp tenderness. EYES:Extraocular motions intact. No scleral icterus. No injection or drainage. ENT: Nose without bleeding, purulent drainage or septal hematoma. Throat without erythema, tonsillar hypertrophy or exudate. Uvula midline. Airway patent. NECK: Trachea midline. No JVD or lymphadenopathy. Supple, nontender, no meningeal signs. CARDIOVASCULAR: Regular rate and rhythm without murmurs, gallops, or rubs. RESPIRATORY: Clear to auscultation. Breath sounds equal bilaterally. No wheezes , rales, or rhonchi. GASTROINTESTINAL: Abdomen soft, non-tender, nondistended. No guarding. MUSCULOSKELETAL: Extremities without clubbing, cyanosis, or edema. No joint tenderness, effusion, or edema noted. No calf tenderness. Negative Homans sign bilaterally. NEUROLOGICAL: Awake and alert. no focal deficits. Motor and sensory grossly within normal limits. Five out of 5 muscle strength in all muscle groups. Normal speech. Medications and IVs Current Medications Medications (Trade) Dose Ordered Sig/Jerzy Route Start Time Stop Time Status Last Admin (NS Flush) 2 ml UNSCH PRN FLUSH 07/26/16 21:15 07/27/16 09:50 (NS Flush) 2 ml BID FLUSH 07/27/16 09:00 07/29/16 20:03 Naloxone HCl 0.4 mg 0.4 mg UNSCH PRN IV 07/26/16 21:15 (Vancomycin Consult Pharmacy) 0 ml @ 0 mls/hr UNSCH OTHER 07/26/16 21:15 (Lactinex) 1 tab TID PO 07/27/16 09:00 07/30/16 08:41 (D50w (Vial) Inj) 25 ml UNSCH PRN IV PUSH 07/27/16 09:15 Glucagon 1 mg 1 mg UNSCH PRN OTHER 07/27/16 09:15 (Zosyn 4.5 Gm Premix) 100 ml @ 200 mls/hr Q6H IV 07/27/16 16:00 07/30/16 08:41 (Catapres) 0.1 mg Q6H PRN PO 07/27/16 17:30 07/29/16 16:12 (Coreg) 25 mg BID PO 07/27/16 21:00 07/30/16 08:41 (Prinivil) 40 mg DAILY PO 07/27/16 17:30 07/30/16 08:41 Ketorolac Tromethamine 15 mg 15 mg Q6H PRN IM 07/28/16 15:15 08/02/16 15:14 07/30/16 05:01 (Vancomycin Inj/ NS 500 ml Inj) 515 ml @ 250 mls/hr Q12H IV 07/29/16 12:00 07/30/16 00:02 Miscellaneous Information SPECIFIC LAB TO BE ... ONCE ONCE XX 07/31/16 11:45 07/31/16 11:46 (Cardura) 2 mg DAILY PO 07/29/16 12:15 07/30/16 08:41 (Neurontin) 300 mg BID PO 07/29/16 21:00 07/30/16 08:41 (Flomax) 0.4 mg HS PO 07/29/16 21:00 07/29/16 20:03 (Levemir Inj) 35 units HS SQ 07/29/16 21:00 07/29/16 20:02 (Lidoderm 5% Patch.12 Hr) 1 patch DAILY TD 07/29/16 13:30 07/30/16 08:42 Miscellaneous Information 1 HS T-DERMAL 07/29/16 21:00 07/29/16 20:04 (Tylenol) 650 mg Q4H PRN PO 07/30/16 09:00 (Zofran Inj) 4 mg Q6H PRN IV 07/30/16 09:00 (Colace) 100 mg BID PRN PO 07/30/16 09:00 (Nichole-Colace) 1 tab BID PRN PO 07/30/16 09:00 (Milk Of Magnesia Liq) 30 ml DAILY PRN PO 07/30/16 09:00 (Mag-Al Plus Susp Liq) 30 ml Q6H PRN PO 07/30/16 09:00 (Tums Chew) 1,000 mg TID PRN CHEW 07/30/16 09:00 A/P Assessment and Plan Mr. 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 Patient found to have Osteomyelitis of toe Osteomyelitis of left foot Pain left foot MRI reveals: Destructive change and abnormal enhancement involving the base of the first metatarsal consistent with osteo-myelitis. 2. Adjacent enhancing fluid collections consistent with abscesses in the volar soft tissues. This is adjacent to the known ulcer. 3. Subluxation/dislocation of the second through fifth metatarsals with extensive degenerative change in the metatarsal tarsal joints. Left foot x ray reviewed by haylie reveals: Grossly abnormal examination suspicious of osteomyelitis and septic arthritis bluxation is at the metatarsal tarsal articulations Blood cultures obtained x2 pending Patient currently on Vancomycin, Zosyn and Rocephin IV 07/28 podiatry consulted. Patient is sp Incision and debridement of the left foot w bone biopsy. fu pathology results. Type 2 diabetes mellitus - Accu-Cheks before meals at bedtime with NovoLog sliding scale insulin 07/28 Bs w imprved control 07/29 BS uncontrolled int he 300's, check hemoglobin A1c, resume pm Levemir Hypertension/CHF - Resume home medication- Lisinopril 40 mg daily and Coreg 25 mg twice a day 07/29 Bp still uncontrolled - Will start Cardura 2 mg po daily CAD s/p proximal LAD stenting 2006 -Patient reports he has not been on Plavix since 2014 -Does take aspirin 81 mg daily at home- hold aspirin at this time pending surgical procedure Microcytic anemia- hemoglobin 10.7 MCV MCV 73.9 - hemoglobin stable at 11.7 DVT prophylaxis - SCDs Berhane Cain MD Jul 29, 2016 21:36
[2016-07-30] VITALS (7 sets, daily range): BP systolic 140–170; BP diastolic 80–92; PULSE 63–78; RESP 16–18; TEMP 96.9–97.6; O2SAT 92–96
[2016-07-30] MEDS: VANCOMYCIN INJ 1,500 MG in SODIUM CHLORID 0.9% 500 ML INJ 500 ML IV SCH ×3 (00:02→23:45)
[2016-07-30 04:44] LABS: AUTOMATED NEUTROPHIL # 4.4 TH/MM3 (1.8-7.7); BASOPHIL # 0.1 TH/MM3 (0-0.2); BASOPHIL % 0.9 % (0.0-2.0); EOSINOPHIL # 0.2 TH/MM3 (0-0.4); EOSINOPHIL % 3.4 % (0.0-4.0); HEMATOCRIT 31.7 % (39.0-51.0); LYMPHOCYTE # 1.9 TH/MM3 (1.0-4.8); MEAN CELL VOLUME 73.5 FL (80.0-100.0); MEAN CORPUSCULAR HEMOGLOBIN 24.3 PG (27.0-34.0); MONO % 9.1 % (0.0-8.0); NEUT % 60.6 % (16.0-70.0); PLATELET COUNT 352 TH/MM3 (150-450); RED BLOOD COUNT 4.31 MIL/MM3 (4.50-5.90); RED CELL DISTRIBUTION WIDTH 15.3 % (11.6-17.2); WHITE BLOOD COUNT 7.3 TH/MM3 (4.0-11.0)
[2016-07-30 04:51] LABS: HEMO FLAGS AUTO DIFF
[2016-07-30] MEDS: KETOROLAC TROMETHAMINE 60 MG/2 ML (IM) VIAL IM PRN ×3 (05:01→23:45)
[2016-07-30] MEDS: PIPERACIL-TAZO 4.5 GM PREMIX 100 ML IV SCH ×4 (05:02→21:55)
[2016-07-30 05:12] LABS: ALKALINE PHOSPHATASE 181 U/L (45-117); ALT (GPT) 21 U/L (12-78); ANION GAP 7 MEQ/L (5-15); AST (GOT) 17 U/L (15-37); BICARBONATE 26.8 MEQ/L (21.0-32.0); BLOOD UREA NITROGEN 14 MG/DL (7-18); CHLORIDE 104 MEQ/L (98-107); GLOMERULAR FILTRATION RATE 69 ML/MIN (>89); MAGNESIUM 2.1 MG/DL (1.5-2.5); POTASSIUM 3.4 MEQ/L (3.5-5.1); SODIUM (NA) 138 MEQ/L (136-145); TOTAL BILIRUBIN ADULT 0.4 MG/DL (0.2-1.0)
[2016-07-30] MEDS ORDERED: ALUMINUM/MAGNESIUM/SIMETH 30 ML CUP PO ONE (05:45)
[2016-07-30 06:32] LABS: OVALOCYTES 1+ (NORMAL)
[2016-07-30 06:33] LABS: SCAN/DIFF AUTO DIFF CONFIRMED
[2016-07-30] MEDS: INSULIN NovoLIN REGULAR SUPPLEMENTAL SCALE SQ SCH ×4 (06:52→19:42)
[2016-07-30] MEDS: SODIUM CHLOR 0.9% 1000 ML INJ 1,000 ML IV SCH (07:15)
[2016-07-30] MEDS: LISINOPRIL 20 MG TAB PO SCH (08:41)
[2016-07-30] MEDS: LACTOBACILLUS ACIDOPHILUS TAB PO SCH ×3 (08:41→17:44)
[2016-07-30] MEDS: GABAPENTIN 300 MG CAP PO SCH ×2 (08:41→19:41)
[2016-07-30] MEDS: DOXAZOSIN MESYLATE 2 MG TAB PO SCH (08:41)
[2016-07-30] MEDS: CARVEDILOL 12.5 MG TAB PO SCH ×2 (08:41→19:41)
[2016-07-30] MEDS: SODIUM CHLORIDE 0.9% FLUSH 5 ML FLUSH FLUSH SCH ×2 (08:42→19:41)
[2016-07-30] MEDS: LIDOCAINE HCL 5% PATCH TD SCH (08:42)
[2016-07-30] MEDS ORDERED: DOCUSATE SODIUM 100 MG CAP PO PRN (09:00)
[2016-07-30] MEDS ORDERED: ALUMINUM/MAGNESIUM/SIMETH 30 ML CUP PO PRN (09:00)
[2016-07-30] MEDS ORDERED: CALCIUM CARBONATE 500 MG CHEWABLE TAB CHEW PRN (09:00)
[2016-07-30] MEDS ORDERED: ONDANSETRON HCL 4 MG/2 ML VIAL IV PRN (09:00)
[2016-07-30] MEDS ORDERED: DOCUSATE SODIUM 50 MG/SENNA 8.6 MG TAB PO PRN (09:00)
[2016-07-30] MEDS ORDERED: MAGNESIUM HYDROXIDE SUSP 30 ML CUP PO PRN (09:00)
--- NOTE | 2016-07-30 09:31 | PD.POD ---
Subjective Podiatric Problems Infection L foot, charcot vs osteomyelitis s/p I&D with bone biopsy L foot 07/27/16 Mihir Past Med/Surg/Social History Past Medical History Endocrine: REPORTS HX OF: Diabetes mellitus Cardiovascular: REPORTS HX OF: Hypertension Musculoskeletal: REPORTS HX OF: Osteoarthritis Cancer - male: REPORTS HX OF: Testicular cancer Social History Smoking Status: Never Smoker Objective Vital Signs Vital Signs Date Time Temp Pulse Resp B/P Pulse Ox O2 Delivery O2 Flow Rate FiO2 07/30/16 03:55 97.3 63 18 140/80 94 07/30/16 00:15 97.3 67 17 140/80 92 07/29/16 19:45 97.7 76 18 140/56 93 07/29/16 17:10 144/92 Automatic Cuff 07/29/16 16:00 97.0 76 18 160/100 99 07/29/16 12:00 96.2 76 18 184/92 98 Coded Allergies: Glyburide (Verified Allergy, Severe, RASH, 07/26/16) Physical Exam Remarks dressing clean, dry, intact Assessment & Plan A/P Infection L foot, charcot vs osteomyelitis s/p I&D with bone biopsy L foot 07/27/16 Mihir Still awaiting bone biopsy to determine if further surgery required vs 6 weeks IV antibiotics pending results. NWB L foot with walker vs crutches Bandage was changed yesterday. Ok to leave intact until dressing change in clinic upon d/c next week. Discharge Planning Patient wishes to have IV antibiotics x 6 weeks if osteomyelitis detected per bone biopsy results that are still pending. Will need 2 weeks oral vs IV antibiotics if no osteo. Mane Ash DPM Jul 30, 2016 09:31
[2016-07-30 10:38] LABS: C. DIFF EPI 027 PRESUMPTIVE NEGATIVE (NEGATIVE); C. DIFF TOXIN PCR NEGATIVE (NEGATIVE)
--- NOTE | 2016-07-30 10:54 | HHI.PR ---
Subjective Remarks Follow-up osteomyelitis. States pain is under control with Tylenol and Toradol. No further hematuria. Also improving loose stools. No nausea and abdominal pain. Discussed with RN Objective Vitals Vital Signs Date Time Temp Pulse Resp B/P Pulse Ox O2 Delivery O2 Flow Rate FiO2 07/30/16 08:00 97.1 73 18 162/91 95 07/30/16 03:55 97.3 63 18 140/80 94 07/30/16 00:15 97.3 67 17 140/80 92 07/29/16 19:45 97.7 76 18 140/56 93 07/29/16 17:10 144/92 Automatic Cuff 07/29/16 16:00 97.0 76 18 160/100 99 07/29/16 12:00 96.2 76 18 184/92 98 I/O 07/29/16 07/29/16 07/29/16 07/30/16 07/30/16 07/30/16 07:00 15:00 23:00 07:00 15:00 23:00 Intake Total 600 ml 960 ml 960 ml 240 ml Output Total 600 ml 400 ml Balance 0 ml 960 ml 960 ml -160 ml Intake Oral 600 ml 960 ml 960 ml 240 ml Output Urine Total 600 ml 400 ml # Voids 6 5 # Bowel Movements 0 3 1 4 Result Diagram: 07/30/1640607/30/16406 Objective Remarks GENERAL: This is a well-nourished, well-developed patient, in no apparent distress. SKIN: Left foot edematous dressing present C/D/I HEAD: Atraumatic. Normocephalic. No temporal or scalp tenderness. EYES:Extraocular motions intact. No scleral icterus. No injection or drainage. ENT: Nose without bleeding, purulent drainage or septal hematoma. Throat without erythema, tonsillar hypertrophy or exudate. Uvula midline. Airway patent. NECK: Trachea midline. No JVD or lymphadenopathy. Supple, nontender, no meningeal signs. CARDIOVASCULAR: Regular rate and rhythm without murmurs, gallops, or rubs. RESPIRATORY: Clear to auscultation. Breath sounds equal bilaterally. No wheezes , rales, or rhonchi. GASTROINTESTINAL: Abdomen soft, non-tender, nondistended. No guarding. MUSCULOSKELETAL: Extremities without clubbing, cyanosis, or edema. No joint tenderness, effusion, or edema noted. No calf tenderness. Negative Homans sign bilaterally. Dry dressing left foot NEUROLOGICAL: Awake and alert. no focal deficits. Motor and sensory grossly within normal limits. Five out of 5 muscle strength in all muscle groups. Normal speech. Procedures I ND A/P Assessment and Plan Mr. 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 Patient found to have Osteomyelitis of toe Osteomyelitis of left foot. Culture with strep Pain left foot MRI reveals: Destructive change and abnormal enhancement involving the base of the first metatarsal consistent with osteo-myelitis. 2. Adjacent enhancing fluid collections consistent with abscesses in the volar soft tissues. This is adjacent to the known ulcer. 3. Subluxation/dislocation of the second through fifth metatarsals with extensive degenerative change in the metatarsal tarsal joints. Left foot x ray reviewed by myself reveals: Grossly abnormal examination suspicious of osteomyelitis and septic arthritis subluxation is at the metatarsal tarsal articulations Blood cultures obtained x2 pending negative to date Patient currently on Vancomycin and Zosyn 07/28 podiatry consulted. Patient is sp Incision and debridement of the left foot w bone biopsy. F/u pathology results to determine if he needs further surgery versus 6 weeks of IV antibiotic. Patient prefers to be in 6 weeks IV antibiotic. If pathology negative, he will be on at least 2 weeks of oral antibiotic per podiatry Type 2 diabetes mellitus - Accu-Cheks before meals at bedtime with NovoLog sliding scale insulin 07/28 Bs w imprved control 07/30 uncontrolled A1c 11.2. Will increase Levemir. Diabetic education Hypertension/CHF - Resume home medication- Lisinopril 40 mg daily and Coreg 25 mg twice a day - Bp still uncontrolled. Likely due to pain. Will Rx Toradol and IV Acetaminophen. - Clonidine PRN -07/30. Improving CAD s/p proximal LAD stenting 2006 -Patient reports he has not been on Plavix since 2014 -Does take aspirin 81 mg daily at home-okay to restart per podiatry Microcytic anemia- hemoglobin 10.7 MCV MCV 73.9 - hemoglobin stable at 11.7 Diarrhea. C. difficile pending. Continue Lactinex. Repeat BMP and magnesium in the morning DVT prophylaxis - SCDs Discharge Planning Discharge in 1-2 days Kj Villalpando MD Jul 30, 2016 10:54
[2016-07-30 12:00] LABS: HEMOGLOBIN A1a 1.7 %; HEMOGLOBIN A1b 1.1 %; HEMOGLOBIN Ao 76.1 %; HEMOGLOBIN F 1.7 %; HEMOGLOBIN LA1C 2.8 %; HEMOGLOBIN P3 5.1 %
[2016-07-30] MEDS ORDERED: LACT PO (15:45)
[2016-07-30] MEDS ORDERED: DIPH2.5T14 PO (15:45)
[2016-07-30] MEDS ORDERED: CARD2TAB PO (15:45)
[2016-07-30] MEDS ORDERED: WALKER WHEELS/F1 MIS (15:45)
--- NOTE | 2016-07-30 15:46 | HHI.DCPOC ---
Discharge Care Plan Diagnosis: (1) Osteomyelitis of ankle or foot, left, acute Your Health Problems Are: Difficulty with ADL Exercise Tolerance Goals to Promote Your Health * To prevent worsening of your condition and complications * To maintain your health at the optimal level Directions to Meet Your Goals Take your medications as prescribed Follow your dietary instruction Follow activity as directed Keep your appointments as scheduled Take your immunizations and boosters as scheduled If your symptoms worsen call your PCP, if no PCP go to Urgent Care Center or Emergency Room Smoking is Dangerous to Your Health. Avoid second hand smoke Call the 24-hour hour crisis hotline for domestic abuse at Kj Villalpando MD Jul 30, 2016 15:46
[2016-07-30] MEDS: ACETAMINOPHEN 325 MG TAB PO PRN (19:40)
[2016-07-30] MEDS: TAMSULOSIN HCL 0.4 MG CAP PO SCH (19:41)
[2016-07-30] MEDS: REMOVE OLD PATCH T-DERMAL SCH (19:42)
[2016-07-30] MEDS ORDERED: INSULIN DETEMIR 100 UNITS/ML VIAL SQ SCH (21:00)
[2016-07-31 03:30] VITALS: BP 157/83; PULSE 74; RESP 16; TEMP 96.6; O2SAT 93
[2016-07-31] MEDS: ACETAMINOPHEN 325 MG TAB PO PRN ×2 (04:53→17:31)
[2016-07-31] MEDS: DIPHENOXYLATE/ATROPINE 2.5 MG/0.025 MG TAB PO PRN (04:53)
[2016-07-31] MEDS: PIPERACIL-TAZO 4.5 GM PREMIX 100 ML IV SCH ×4 (04:55→21:54)
[2016-07-31 05:03] LABS: POTASSIUM 3.6 MEQ/L (3.5-5.1)
[2016-07-31 05:37] LABS: BICARBONATE 27.6 MEQ/L (21.0-32.0); MAGNESIUM 2.2 MG/DL (1.5-2.5)
[2016-07-31] MEDS: KETOROLAC TROMETHAMINE 60 MG/2 ML (IM) VIAL IM PRN ×2 (06:38→16:11)
[2016-07-31] MEDS: INSULIN NovoLIN REGULAR SUPPLEMENTAL SCALE SQ SCH ×4 (06:38→20:36)
[2016-07-31 08:39] VITALS: BP 176/96; PULSE 62; RESP 16; TEMP 97.1; O2SAT 96
[2016-07-31] MEDS ORDERED: POTASSIUM CHLORIDE 10 MEQ CONTROLLED RELEASE TAB PO ONE (08:45)
[2016-07-31] MEDS: DOXAZOSIN MESYLATE 2 MG TAB PO SCH (10:04)
[2016-07-31] MEDS: LISINOPRIL 20 MG TAB PO SCH ×2 (10:04→20:35)
[2016-07-31] MEDS: LACTOBACILLUS ACIDOPHILUS TAB PO SCH ×3 (10:04→18:00)
[2016-07-31] MEDS: CARVEDILOL 12.5 MG TAB PO SCH ×2 (10:04→20:34)
[2016-07-31] MEDS: GABAPENTIN 300 MG CAP PO SCH ×2 (10:05→20:34)
[2016-07-31] MEDS: ASPIRIN EC 81 MG TABEC PO SCH (10:06)
[2016-07-31] MEDS: LIDOCAINE HCL 5% PATCH TD SCH (10:07)
[2016-07-31] MEDS: SODIUM CHLORIDE 0.9% FLUSH 5 ML FLUSH FLUSH SCH ×2 (10:14→20:35)
[2016-07-31] MEDS ORDERED: PHARMACY ORDERED LAB XX ONE (11:45)
[2016-07-31 12:00] VITALS: BP 144/92; PULSE 70; RESP 17; TEMP 95.3; O2SAT 95
--- NOTE | 2016-07-31 12:18 | HHI.PR ---
Subjective Remarks Follow-up hypertension diabetes. BP elevated which he relates to his pain. He does not want to increase his BP medications at this time. He is also allergic to metformin. Discussed with RN Objective Vitals Vital Signs Date Time Temp Pulse Resp B/P Pulse Ox O2 Delivery O2 Flow Rate FiO2 07/31/16 08:39 97.1 62 16 176/96 96 07/31/16 03:30 96.6 74 16 157/83 93 07/30/16 23:25 97.2 71 16 170/86 93 07/30/16 20:35 96.9 77 16 160/90 93 07/30/16 16:00 97.6 76 18 156/92 96 I/O 07/30/16 07/30/16 07/30/16 07/31/16 07/31/16 07/31/16 07:00 15:00 23:00 07:00 15:00 23:00 Intake Total 240 ml 960 ml 840 ml 480 ml Output Total 400 ml Balance -160 ml 960 ml 840 ml 480 ml Intake Oral 240 ml 960 ml 840 ml 480 ml Output Urine Total 400 ml # Voids 6 4 3 # Bowel Movements 4 2 3 2 Result Diagram: 07/30/16 0407 07/31/16 0400 Objective Remarks GENERAL: This is a well-nourished, well-developed patient, in no apparent distress. SKIN: Left foot edematous dressing present C/D/I HEAD: Atraumatic. Normocephalic. No temporal or scalp tenderness. EYES:Extraocular motions intact. No scleral icterus. No injection or drainage. ENT: Nose without bleeding, purulent drainage or septal hematoma. Throat without erythema, tonsillar hypertrophy or exudate. Uvula midline. Airway patent. NECK: Trachea midline. No JVD or lymphadenopathy. Supple, nontender, no meningeal signs. CARDIOVASCULAR: Regular rate and rhythm without murmurs, gallops, or rubs. RESPIRATORY: Clear to auscultation. Breath sounds equal bilaterally. No wheezes , rales, or rhonchi. GASTROINTESTINAL: Abdomen soft, non-tender, nondistended. No guarding. MUSCULOSKELETAL: Extremities without clubbing, cyanosis, or edema. No joint tenderness, effusion, or edema noted. No calf tenderness. Negative Homans sign bilaterally. Dry dressing left foot NEUROLOGICAL: Awake and alert. no focal deficits. Motor and sensory grossly within normal limits. Five out of 5 muscle strength in all muscle groups. Normal speech. Procedures I N D A/P Assessment and Plan Mr. 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 Patient found to have Osteomyelitis of toe Osteomyelitis of left foot. Culture with strep Pain left foot MRI reveals: Destructive change and abnormal enhancement involving the base of the first metatarsal consistent with osteo-myelitis. 2. Adjacent enhancing fluid collections consistent with abscesses in the volar soft tissues. This is adjacent to the known ulcer. 3. Subluxation/dislocation of the second through fifth metatarsals with extensive degenerative change in the metatarsal tarsal joints. Left foot x ray reviewed by myself reveals: Grossly abnormal examination suspicious of osteomyelitis and septic arthritis subluxation is at the metatarsal tarsal articulations Blood cultures obtained x2 pending negative to date Patient currently on Vancomycin and Zosyn 07/28 podiatry consulted. Patient is sp Incision and debridement of the left foot w bone biopsy. F/u pathology results to determine if he needs further surgery versus 6 weeks of IV antibiotic. Patient prefers to be in 6 weeks IV antibiotic. If pathology negative, he will be on at least 2 weeks of oral antibiotic per podiatry . Pathology is still pending. Plan discussed with RN Type 2 diabetes mellitus - Accu-Cheks before meals at bedtime with NovoLog sliding scale insulin 07/28 Bs w improved control 07/30 uncontrolled A1c 11.2. Will increase Levemir. Diabetic education 07/31. Improving continue current management. Hypertension/CHF - Resume home medication- Lisinopril 40 mg daily and Coreg 25 mg twice a day - Bp still uncontrolled. Likely due to pain. Will Rx Toradol and IV Acetaminophen. - Clonidine PRN -07/30. Improving -07/31 BP is elevated secondary to pain. Will monitor CAD s/p proximal LAD stenting 2006 -Patient reports he has not been on Plavix since 2014 -Does take aspirin 81 mg daily at home-okay to restart per podiatry Microcytic anemia- hemoglobin 10.7 MCV MCV 73.9 - hemoglobin stable at 11.7 Diarrhea. C. difficile negative. Continue Lactinex and Lomotil. Repeat BMP and magnesium in the morning DVT prophylaxis - SCDs Discharge Planning Discharge in 1-2 days Kj Villalpando MD Jul 31, 2016 12:18
[2016-07-31] MEDS ORDERED: ASPI81TA11 PO (12:50)
[2016-07-31] MEDS: VANCOMYCIN INJ 1,500 MG in SODIUM CHLORID 0.9% 500 ML INJ 500 ML IV SCH (15:56)
[2016-07-31] MEDS ORDERED: LANTINJ SQ (16:30)
--- NOTE | 2016-07-31 16:31 | HHI.FF ---
Face to Face Verification Diagnosis: (1) Osteomyelitis of ankle or foot, left, acute Home Health Nursing Order: Medical education Medication education-adverse effect Wound care and dressing changes Nursing assessment with vital signs IV medication administration I have seen patient Morris Bravo on 07/31/16. My clinical findings support the need for the requested home health care services because: Med compliance is questionable I certify that my clinical findings support that this patient is homebound because: Unsafe to leave home unassisted Kj Villalpando MD Jul 31, 2016 16:31
[2016-07-31 17:16] VITALS: BP 198/100; PULSE 81; RESP 17; TEMP 98.3; O2SAT 95
[2016-07-31] MEDS: cloNIDine HCL 0.1 MG TAB PO PRN (17:28)
[2016-07-31 18:07] VITALS: BP 169/93; PULSE 74
[2016-07-31 20:10] VITALS: BP 176/90; PULSE 74; RESP 18; TEMP 97.6; O2SAT 94
[2016-07-31] MEDS: INSULIN DETEMIR 100 UNITS/ML VIAL SQ SCH (20:36)
[2016-07-31] MEDS: TAMSULOSIN HCL 0.4 MG CAP PO SCH (20:39)
[2016-07-31] MEDS ORDERED: LISINOPRIL 20 MG TAB PO SCH (21:00)
[2016-07-31] MEDS: REMOVE OLD PATCH T-DERMAL SCH (21:00)
[2016-08-01] MEDS: VANCOMYCIN INJ 1,500 MG in SODIUM CHLORID 0.9% 500 ML INJ 500 ML IV SCH ×2 (00:04→13:17)
[2016-08-01] MEDS: DIPHENOXYLATE/ATROPINE 2.5 MG/0.025 MG TAB PO PRN (01:53)
[2016-08-01] MEDS: KETOROLAC TROMETHAMINE 60 MG/2 ML (IM) VIAL IM PRN ×3 (01:59→20:29)
[2016-08-01 02:02] VITALS: BP 213/102; PULSE 73; RESP 16; TEMP 98.1; O2SAT 94
[2016-08-01] MEDS: cloNIDine HCL 0.1 MG TAB PO PRN (02:48)
[2016-08-01 04:00] VITALS: BP 162/78; PULSE 69; RESP 19; TEMP 97.2; O2SAT 93
[2016-08-01] MEDS: PIPERACIL-TAZO 4.5 GM PREMIX 100 ML IV SCH ×2 (04:36→10:01)
[2016-08-01] MEDS: INSULIN NovoLIN REGULAR SUPPLEMENTAL SCALE SQ SCH ×4 (06:07→20:31)
[2016-08-01 08:00] VITALS: BP 152/94; PULSE 67; RESP 18; TEMP 97.8; O2SAT 96
[2016-08-01] MEDS ORDERED: LISI40TA PO (09:14)
[2016-08-01] MEDS: LIDOCAINE HCL 5% PATCH TD SCH (09:48)
[2016-08-01] MEDS: LACTOBACILLUS ACIDOPHILUS TAB PO SCH ×3 (09:49→16:41)
[2016-08-01] MEDS: GABAPENTIN 300 MG CAP PO SCH ×2 (09:49→20:29)
[2016-08-01] MEDS: LISINOPRIL 20 MG TAB PO SCH ×2 (09:50→20:30)
[2016-08-01] MEDS: CARVEDILOL 12.5 MG TAB PO SCH ×2 (09:50→20:30)
[2016-08-01] MEDS: ASPIRIN EC 81 MG TABEC PO SCH (09:50)
[2016-08-01] MEDS: SODIUM CHLORIDE 0.9% FLUSH 5 ML FLUSH FLUSH SCH ×2 (09:50→20:32)
[2016-08-01] MEDS: DOXAZOSIN MESYLATE 2 MG TAB PO SCH (09:50)
[2016-08-01 12:00] VITALS: BP 142/90; PULSE 68; RESP 18; TEMP 97.9; O2SAT 96
--- NOTE | 2016-08-01 13:28 | HHI.PR ---
Subjective Remarks Follow-up diabetes. He is doing okay fingerstick 80 this morning after receiving 5 units of coverage last night. Discussed with RN, stable for discharge pending arrangements of IV antibiotic. Objective Vitals Vital Signs Date Time Temp Pulse Resp B/P Pulse Ox O2 Delivery O2 Flow Rate FiO2 08/01/16 12:00 97.9 68 18 142/90 96 08/01/16 08:00 97.8 67 18 152/94 96 08/01/16 04:00 97.2 69 19 162/78 93 08/01/16 02:02 98.1 73 16 213/102 94 07/31/16 20:10 97.6 74 18 176/90 94 07/31/16 18:45 16 07/31/16 18:07 74 169/93 07/31/16 17:16 98.3 81 17 198/100 95 I/O 07/31/16 07/31/16 07/31/16 08/01/16 08/01/16 08/01/16 07:00 15:00 23:00 07:00 15:00 23:00 Intake Total 480 ml 980 ml 480 ml 240 ml Output Total 1050 ml 400 ml Balance 480 ml -70 ml 80 ml 240 ml Intake Oral 480 ml 980 ml 480 ml 240 ml Output Urine Total 1050 ml 400 ml # Voids 3 9 1 # Bowel Movements 2 0 2 Result Diagram: 07/30/1640607/31/16 0400 Objective Remarks GENERAL: This is a well-nourished, well-developed patient, in no apparent distress. SKIN: Left foot edematous dressing present C/D/I HEAD: Atraumatic. Normocephalic. No temporal or scalp tenderness. EYES:Extraocular motions intact. No scleral icterus. No injection or drainage. ENT: Nose without bleeding, purulent drainage or septal hematoma. Throat without erythema, tonsillar hypertrophy or exudate. Uvula midline. Airway patent. NECK: Trachea midline. No JVD or lymphadenopathy. Supple, nontender, no meningeal signs. CARDIOVASCULAR: Regular rate and rhythm without murmurs, gallops, or rubs. RESPIRATORY: Clear to auscultation. Breath sounds equal bilaterally. No wheezes , rales, or rhonchi. GASTROINTESTINAL: Abdomen soft, non-tender, nondistended. No guarding. MUSCULOSKELETAL: Extremities without clubbing, cyanosis, or edema. No joint tenderness, effusion, or edema noted. No calf tenderness. Negative Homans sign bilaterally. Dry dressing left foot NEUROLOGICAL: Awake and alert. no focal deficits. Motor and sensory grossly within normal limits. Five out of 5 muscle strength in all muscle groups. Normal speech. Procedures I N D A/P Assessment and Plan Mr. 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 Patient found to have Osteomyelitis of toe Osteomyelitis of left foot. Culture with strep Pain left foot MRI reveals: Destructive change and abnormal enhancement involving the base of the first metatarsal consistent with osteo-myelitis. 2. Adjacent enhancing fluid collections consistent with abscesses in the volar soft tissues. This is adjacent to the known ulcer. 3. Subluxation/dislocation of the second through fifth metatarsals with extensive degenerative change in the metatarsal tarsal joints. Left foot x ray reviewed by myself reveals: Grossly abnormal examination suspicious of osteomyelitis and septic arthritis subluxation is at the metatarsal tarsal articulations Blood cultures obtained x2 pending negative to date Patient currently on Vancomycin and Zosyn 07/28 podiatry consulted. Patient is sp Incision and debridement of the left foot w bone biopsy revelaing + OM. He refuses further surgery, we'll give 6 weeks of IV antibiotic. Patient prefers to be in 6 weeks IV antibiotic by a PICC. Type 2 diabetes mellitus - Accu-Cheks before meals at bedtime with NovoLog sliding scale insulin 07/28 Bs w improved control 07/30 uncontrolled A1c 11.2. Will increase Levemir. Diabetic education 07/31. Improving continue current management. 08/01. Hypoglycemia after receiving 5 units of regular insulin coverage at bedtime. Hypoglycemia protocol. Limit to 2 units maximum of regular insulin coverage at bedtime. Hypertension/CHF - Resume home medication- Lisinopril 40 mg daily and Coreg 25 mg twice a day - Bp still uncontrolled. Likely due to pain. Will Rx Toradol and IV Acetaminophen. - Clonidine PRN -07/30. Improving -07/31 BP is elevated secondary to pain. Will monitor -08/01 BP improving with lisinopril 40 mg twice a day CAD s/p proximal LAD stenting 2006 -Patient reports he has not been on Plavix since 2014 -Does take aspirin 81 mg daily at home-okay to restart per podiatry Microcytic anemia- hemoglobin 10.7 MCV MCV 73.9 - hemoglobin stable at 11.7 Diarrhea. C. difficile negative. Continue Lactinex and Lomotil. No diarrhea today DVT prophylaxis - SCDs Discharge Planning Discharge when IV antibiotics arranged Kj Villalpando MD Aug 01, 2016 13:28
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
[2016-08-01] MEDS ORDERED: CRUTMIS25 (13:41)
--- NOTE | 2016-08-01 14:41 | HHI.FF ---
Infusion Therapy Location of Infusion Therapy: Ambulatory Infusion Therapy Order Patient Information Patient Weight 91 kg Diagnosis: (1) Osteomyelitis of ankle or foot, left, acute Coded Allergies: Glyburide (Verified Allergy, Severe, RASH, 07/26/16) HMG-CoA Reductase Inhibitors (Verified Allergy, Unknown, 08/01/16) rhabdomyolysis Metformin (Verified Allergy, Unknown, Rash, 07/31/16) Administer Medication Ceftriaxone 2 grams IV q 24 hours Stop Treatment: Sep 07, 2016 Additional Information Venous access: PICC Line Additional Instructions [x] Peripheral flush and dressing changes per protocol [x] Implanted port and central barrel line operator: * Implanted port: 10 ml Normal Saline followed by 5 ml Heparin 100 units/ml Heparin flush after each use and monthly to maintain. [] May leave port accessed during therapy. [] May leave peripheral site accessed for duration of therapy. [x] If patient has SOB or respiratory distress, check oxygen saturation. If less than 90% or clinical signs of respiratory distress, administer oxygen at 2 L/min. via nasal cannula and notify physician. [x] Anaphylaxis/Reaction orders: * Stop infusion. * Keep IV line open with saline flush. * Notify physician. * Monitor vital signs every 15 minutes until symptoms resolve. * Check Oxygen saturation; Oxygen at 2 L/min. via nasal cannula if less than 90% or clinical signs of respiratory distress. * Administer diphenhydramine (Benadryl) 25 mg IV STAT, (unless patient has received as pre-med). May repeat once, if necessary. * Solu-Cortef 250 mg IVP over 30-60 seconds, use 100 mg vials for each dissolution. * Epinephrine (1mg/1 ml) 0.3 mg subcutaneously or IVP now with any signs of respiratory distress. * Check with physician for new additional pre-med orders if patient is re- challenged or re-treated. [x] May remove PICC line when treatment complete, after confirming with Physician. [x] If the patient is admitted to the hospital, the ED, or transferred via [facility] , complete transfer form including medication reconciliation order sheet. Laboratory Tests Weekly Labs: Guillermo Araya MD Aug 01, 2016 14:40
[2016-08-01 16:00] VITALS: BP 156/92; PULSE 78; RESP 18; TEMP 98.3; O2SAT 95
--- NOTE | 2016-08-01 16:00 | RADRPT ---
EXAM DATE/TIME: 08/01/2016 15:48 [facility] COMPARISON: CHEST PA & LAT, August 31, 2015, 22:56. INDICATIONS : Picc line placement. MEDICAL HISTORY : Hypertension. Diabetes mellitus type II. Carcinoma, testicular. SURGICAL HISTORY : testicle removed with implant. ENCOUNTER: Initial ACUITY: 4 - 6 days PAIN SCORE: 0/10 LOCATION: Bilateral chest FINDINGS: A single view of the chest demonstrates the lungs to be symmetrically aerated without evidence of mas s, infiltrate or effusion. The cardiomediastinal contours are unremarkable. Osseous structures are intact. PICC line in good position on the RIGHT. Healed rib fractures. CONCLUSION: Normal examination. Doc Cotter MD on August 01, 2016 at 15:58 Board Certified Radiologist. This report was verified electronically.
--- NOTE | 2016-08-01 16:30 | HHI.IDPN ---
Note Infectious Disease Note Patient feels okay. No complaints. PIC inserted has just now been inserted. Afebrile. Wound culture has Strep non A,B D. PAST MEDICAL HISTORY 1. Diabetes mellitus 2. Hypertension, 3. Coronary artery disease treated with coronary stent 4. Congestive heart failure, 5. Depression, 6. History of ACL tear 7. History of left testicle removal ALLERGIES Glyburide MEDICATIONS Vancomycin. PHYSICAL EXAMINATION GENERAL: No acute distress. He is awake and alert. HEENT: No icterus. Oropharynx moist mucosa without lesions. NECK: Supple. No adenopathy. LUNGS: Clear breath sounds. HEART: Regular rate and rhythm. No murmurs. rubs or gallops. ABDOMEN: Bowel sounds present, soft, no tenderness appreciated. EXTREMITIES: No clubbing or cyanosis. The left foot has a surgical dressing in place. (+) swelling. No redness. SKIN: No rash. NEUROLOGIC: Nonfocal. IMPRESSION Osteomyelitis of the left foot. Strep non A,B D. operative bone pathology is positive for osteo. RECOMMENDATIONS Stop Vancomycin. Arrange for outpatient treatment with Ceftriaxone x 6 weeks. Case management to arrange. See orders. Guillermo James MD Aug 01, 2016 16:15
[2016-08-01 20:10] VITALS: BP 172/88; PULSE 82; RESP 17; TEMP 98.2; O2SAT 95
[2016-08-01] MEDS: TAMSULOSIN HCL 0.4 MG CAP PO SCH (20:29)
[2016-08-01] MEDS: ACETAMINOPHEN 325 MG TAB PO PRN (20:30)
[2016-08-01] MEDS: INSULIN DETEMIR 100 UNITS/ML VIAL SQ SCH (20:31)
[2016-08-01] MEDS: REMOVE OLD PATCH T-DERMAL SCH (20:32)
[2016-08-02] MEDS: VANCOMYCIN INJ 1,500 MG in SODIUM CHLORID 0.9% 500 ML INJ 500 ML IV SCH (00:13)
[2016-08-02 00:29] VITALS: BP 153/82; PULSE 74; RESP 18; TEMP 96.3; O2SAT 95
[2016-08-02 08:00] VITALS: BP 159/91; PULSE 69; RESP 20; TEMP 96.8; O2SAT 96
[2016-08-02] MEDS: INSULIN NovoLIN REGULAR SUPPLEMENTAL SCALE SQ SCH ×2 (08:00→13:05)
[2016-08-02] MEDS: LIDOCAINE HCL 5% PATCH TD SCH (09:00)
[2016-08-02] MEDS: SODIUM CHLORIDE 0.9% FLUSH 5 ML FLUSH FLUSH SCH (09:00)
[2016-08-02] MEDS: ASPIRIN EC 81 MG TABEC PO SCH (10:02)
[2016-08-02] MEDS: GABAPENTIN 300 MG CAP PO SCH (10:02)
[2016-08-02] MEDS: LISINOPRIL 20 MG TAB PO SCH (10:02)
[2016-08-02] MEDS: LACTOBACILLUS ACIDOPHILUS TAB PO SCH ×2 (10:03→13:06)
[2016-08-02] MEDS: CARVEDILOL 12.5 MG TAB PO SCH (10:03)
[2016-08-02] MEDS: DOXAZOSIN MESYLATE 2 MG TAB PO SCH (10:03)
[2016-08-02] MEDS: KETOROLAC TROMETHAMINE 60 MG/2 ML (IM) VIAL IM PRN (10:15)
--- NOTE | 2016-08-02 11:40 | HHI.PR ---
Subjective Remarks Follow-up diabetes mellitus. Patient has no hypoglycemic symptoms. Discussed with case management at home and care as well as RN Objective Vitals Vital Signs Date Time Temp Pulse Resp B/P Pulse Ox O2 Delivery O2 Flow Rate FiO2 08/02/16 08:00 96.8 69 20 159/91 96 08/02/16 00:29 96.3 74 18 153/82 95 08/01/16 20:10 98.2 82 17 172/88 95 08/01/16 16:00 98.3 78 18 156/92 95 08/01/16 12:00 97.9 68 18 142/90 96 I/O 08/01/16 08/01/16 08/01/16 08/02/16 08/02/16 08/02/16 07:00 15:00 23:00 07:00 15:00 23:00 Intake Total 240 ml 960 ml 360 ml Balance 240 ml 960 ml 360 ml Intake Oral 240 ml 960 ml 360 ml # Voids 1 8 2 # Bowel Movements 2 2 0 Result Diagram: 07/30/16 0407 08/02/16 0600 Objective Remarks GENERAL: This is a well-nourished, well-developed patient, in no apparent distress. SKIN: Left foot edematous dressing present C/D/I HEAD: Atraumatic. Normocephalic. No temporal or scalp tenderness. EYES:Extraocular motions intact. No scleral icterus. No injection or drainage. ENT: Nose without bleeding, purulent drainage or septal hematoma. Throat without erythema, tonsillar hypertrophy or exudate. Uvula midline. Airway patent. NECK: Trachea midline. No JVD or lymphadenopathy. Supple, nontender, no meningeal signs. CARDIOVASCULAR: Regular rate and rhythm without murmurs, gallops, or rubs. RESPIRATORY: Clear to auscultation. Breath sounds equal bilaterally. No wheezes , rales, or rhonchi. GASTROINTESTINAL: Abdomen soft, non-tender, nondistended. No guarding. MUSCULOSKELETAL: Extremities without clubbing, cyanosis, or edema. No joint tenderness, effusion, or edema noted. No calf tenderness. Negative Homans sign bilaterally. Dry dressing left foot NEUROLOGICAL: Awake and alert. no focal deficits. Motor and sensory grossly within normal limits. Five out of 5 muscle strength in all muscle groups. Normal speech. Procedures I N D A/P Problem List: (1) Osteomyelitis of ankle or foot, left, acute ICD Code: M86.172 Status: Acute (2) Diabetes mellitus, type 2 ICD Code: E11.9 Status: Chronic Assessment and Plan Mr. 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 Patient found to have Osteomyelitis of toe Osteomyelitis of left foot. Culture with strep Pain left foot MRI reveals: Destructive change and abnormal enhancement involving the base of the first metatarsal consistent with osteo-myelitis. 2. Adjacent enhancing fluid collections consistent with abscesses in the volar soft tissues. This is adjacent to the known ulcer. 3. Subluxation/dislocation of the second through fifth metatarsals with extensive degenerative change in the metatarsal tarsal joints. Left foot x ray reviewed by myself reveals: Grossly abnormal examination suspicious of osteomyelitis and septic arthritis subluxation is at the metatarsal tarsal articulations Blood cultures obtained x2 pending negative to date Patient currently on Vancomycin and Zosyn 07/28 podiatry consulted. Patient is sp Incision and debridement of the left foot w bone biopsy revelaing + OM. He refuses further surgery, we'll give 6 weeks of IV Rocephin. PICC care. Type 2 diabetes mellitus - Accu-Cheks before meals at bedtime with NovoLog sliding scale insulin 07/28 Bs w improved control 07/30 uncontrolled A1c 11.2. Will increase Levemir. Diabetic education 07/31. Improving continue current management. 08/01. Hypoglycemia after receiving 5 units of regular insulin coverage at bedtime. Hypoglycemia protocol. Limit to 2 units maximum of regular insulin coverage at bedtime. 08/02. No recurrence of hypoglycemia. Hypertension/CHF - Resume home medication- Lisinopril 40 mg daily and Coreg 25 mg twice a day - Bp still uncontrolled. Likely due to pain. Will Rx Toradol and IV Acetaminophen. - Clonidine PRN -07/30. Improving -07/31 BP is elevated secondary to pain. Will monitor -08/01 BP improving with lisinopril 40 mg twice a day CAD s/p proximal LAD stenting 2006 -Patient reports he has not been on Plavix since 2014 -Does take aspirin 81 mg daily at home-okay to restart per podiatry Microcytic anemia- hemoglobin 10.7 MCV MCV 73.9 - hemoglobin stable at 11.7 Diarrhea. C. difficile negative. Continue Lactinex and Lomotil. No recurrence of diarrhea DVT prophylaxis - SCDs Discharge Planning Discharge when IV antibiotics arranged Kj Villalpando MD Aug 02, 2016 11:40
[2016-08-02 12:00] VITALS: BP 179/97; PULSE 85; RESP 20; TEMP 97.3; O2SAT 95
[2016-08-02] MEDS ORDERED: cefTRIAXone INJ 2,000 MG in SODIUM CHLORIDE 0.9% INJ 100 ML IV SCH (12:00)
[2016-08-02] MEDS ORDERED: INSULIN NovoLIN REGULAR SUPPLEMENTAL SCALE SQ SCH (21:00)
--- NOTE | 2016-08-10 05:38 | MP ---
cc: OCTAVIO RAMIREZ DPM DATE OF 1960 DATE OF SURGERY July 27, 2016 INDICATIONS FOR PROCEDURE The patient presented to the emergency department complaining of continued worsening of redness and swelling to the left foot. He was seen in [facility] and upon discussion with the staff over there it was deemed necessary to transfer him over to the main for likely surgery secondary to infection. He had findings consistent with both Charcot and osteomyelitis on x-ray and needed further determination. I discussed with the patient that in order to get definitive answers of whether or not he has Charcot versus osteomyelitis, first off I would have to deal with the infection by cleaning out the infection in the area and if there is bone present in the area, I will take a piece of bone to sample and determine whether or not there is osteomyelitis present in the area as well. The patient consented to incision and drainage of left foot with bone biopsy. PROCEDURE The patient had consented to incision and drainage of left foot with bone biopsy. He was seen in preop holding by myself, nursing staff and Anesthesia where the correct patient, side and site were all confirmed be correct and the left foot. He is then taken to the surgical suite, placed in supine position where the plantar medial ulceration was noted to be in the arch area and he had a rocker bottom type foot. The plantar medial ulceration was excised and the tract probes down to the bone of the base of the second metatarsal area. Following excision of the ulceration, the area was copiously irrigated with 3 liters normal saline with gentamicin followed by exploration of the area. A saw was utilized to plane the bony prominence in the area. That piece of bone was then sent to pathology for examination to determine osteomyelitis. A culture was also taken of the left foot prior to closure. Following this, the area was deemed very clean. There was no residual necrotic tissue and no residual purulent material in the area. It was closed primarily as a precaution using 2-0 nylon. To continue to await bone biopsy results to determine if further surgery is required while the patient remains in house. Following closure of the area, the dressing consisting of Adaptic, 4x4, Aster and Mk bandage was applied to the left lower extremity. He was taken back to PACU with vital signs stable and vascular status intact to the remainder of the left foot. He will be non-weightbearing to the left foot and we will await bone biopsy results to determine further surgery versus long-term IV antibiotics per patient request. SHORT OPERATIVE NOTE SURGEON Dr. Octavio Ramriez [employer] Staff PREOPERATIVE DIAGNOSIS Abscess with Charcot versus osteomyelitis left foot. POSTOPERATIVE DIAGNOSIS Abscess with Charcot versus osteomyelitis left foot. PROCEDURE Incision and drainage left foot with bone biopsy left foot. PATHOLOGY Bone left foot to pathology and culture left foot. ANESTHESIA General endotracheal anesthesia plus local consisting of 4 mL of 2% lidocaine plain and 4 mL of 0.5% Marcaine plain. ESTIMATED BLOOD LOSS Minimal. HEMOSTASIS None. CONDITION Stable to PACU. DISPOSITION Non-weightbearing left foot. Will await bone biopsy results to determine further treatment. Octavio QUIJANO/GAMALIEL /9:00 AM /5:18 AM
== END 2016-08-02 14:42 | disposition home health service (06) | DRG 629 ==
LOC: PHED 16:08 → PHEDA 21:15 → PHEDH 07-27 01:15 → N06B 07-27 14:56
PROVIDERS: ADMIT Internal Medicine; ATTEND Internal Medicine
PROC: 0H9NXZZ Drainage of Left Foot Skin, External Approach (ICD-10-PCS; 2016-07-27)
PROC: 0QBP0ZX Excision of Left Metatarsal, Open Approach, Diagnostic (ICD-10-PCS; principal; 2016-07-27 19:43)
PROC: 02HV33Z Insertion of Infusion Device into Superior Vena Cava, Percutaneous Approach (ICD-10-PCS; 2016-08-01)
DX: E11.69 Type 2 diabetes mellitus with other specified complication (principal); M86.172 Other acute osteomyelitis, left ankle and foot; E11.621 Type 2 diabetes mellitus with foot ulcer; I13.0 Hypertensive heart and chronic kidney disease with heart failure and stage 1 through stage 4 chronic kidney disease, or unspecified chronic kidney disease; I50.9 Heart failure, unspecified; E11.42 Type 2 diabetes mellitus with diabetic polyneuropathy; E11.22 Type 2 diabetes mellitus with diabetic chronic kidney disease; L02.612 Cutaneous abscess of left foot; E11.65 Type 2 diabetes mellitus with hyperglycemia; L97.529 Non-pressure chronic ulcer of other part of left foot with unspecified severity; B95.4 Other streptococcus as the cause of diseases classified elsewhere; I25.10 Atherosclerotic heart disease of native coronary artery without angina pectoris; N18.9 Chronic kidney disease, unspecified; E11.649 Type 2 diabetes mellitus with hypoglycemia without coma; D50.9 Iron deficiency anemia, unspecified; R19.7 Diarrhea, unspecified; Z95.5 Presence of coronary angioplasty implant and graft; Z85.47 Personal history of malignant neoplasm of testis; Z79.4 Long term (current) use of insulin; Z88.8 Allergy status to other drugs, medicaments and biological substances
CPT/HCPCS: 36569; 71010; 73630; 73720; 76937; 80048; 80053; 80061; 80202; 81001; 82565; 82948; 83036; 83605; 83735; 84100; 85025; 85610; 85730; 86403; 87015; 87040; 87070; 87086; 87102; 87116; 87205; 87206; 87493; 88307; 88311; 90471; 90714; 96365; 96366; 96368; 96372; 96375; 96376; A9579; E0113; J0131; J0360; J0696; J1580; J1642; J1815; J1885; J2270; J2370; J2405; J2543; J3010; J3370; J7030; J7040

== ENCOUNTER 2017-02-12 13:48 | Inpatient (IN) | payer OTHER, MEDICARE ==
[~2017-02-12] VITALS: Ht 182.9 cm; Wt 89.5 kg
[~2017-02-12 13:48] MED LIST changes: +ASCO250C CHEW; +ASPI81TA11 PO; +CARD2TAB PO; -CARV12.5 PO; -CHRO200T3 PO; +CORE25TA PO; +CRUTMIS25; +DIPH2.5T14 PO; -GABA300C3 PO; +GABA300C5 PO; -KLOR20TA6 PO; +LACT PO; -NOVOLOGSS SQ; +POTA-163 PO; -TAMS0.4C67 PO; +TAMS5CAP PO; -VITA100T5 PO; -VITA100T65 PO; -VITA50TA10 PO; +WALKER WHEELS/F1 MIS
[2017-02-12 14:00] VITALS: PULSE 77; RESP 20; TEMP 98.3; O2SAT 98
[2017-02-12] MEDS ORDERED: ONDANSETRON HCL 4 MG/2 ML VIAL IM ONE (15:00)
[2017-02-12] MEDS ORDERED: ONDANSETRON HCL 4 MG/2 ML VIAL IVP ONE (15:00)
[2017-02-12] MEDS ORDERED: MORPHINE SULFATE 8 MG/ML INJ IM ONE (15:00)
[2017-02-12] MEDS ORDERED: MORPHINE SULFATE 4 MG/ML INJ IV ONE (15:00)
--- NOTE | 2017-02-12 15:16 | PD ---
HPI Chief Complaint: Complaint Time Seen by Provider: 14:09 Travel History International Travel<30 days: No Contact w/Intl Traveler<30days: No Traveled to known affect area: No History of Present Illness HPI This is a 57-year-old male with history of prostate cancer, presents here with complaints of urinary retention. The patient called his urologist who told him to come to the ER to get a catheter placed and flushed. The patient denies any fevers, chills. He states that he was urinating up until last night. He states that he noted blood coming from his meatus. He states he was able to shake his penis and throw clots. PFSH Past Medical History Cancer: Yes (EMBRYONOCEL 20YRS AGO) Cardiac Catheterization: Yes Cardiovascular Problems: Yes Congestive Heart Failure: Yes Diabetes: Yes Patient Takes Glucophage: No Diminished Hearing: No Endocrine: Yes Genitourinary: Yes Hypertension: Yes Musculoskeletal: Yes Neurologic: Yes (diabetic neuroopathy left foot) Psychiatric: No Reproductive: No Respiratory: No Radiation Therapy: No Tetanus Vaccination: < 5 Years Influenza Vaccination: Yes Past Surgical History Body Medical Devices: cardiac stent Coronary Stent: Yes (TIMES ONE - DR LOCKE) Other Surgery: Yes (TESTICULAR SX DUE TO CA) Social History Alcohol Use: No Tobacco Use: No (never) Substance Use: No Allergies-Medications (Allergen,Severity, Reaction): Coded Allergies: Glyburide (Verified Allergy, Severe, RASH, 02/12/17) HMG-CoA Reductase Inhibitors (Verified Allergy, Unknown, 02/12/17) rhabdomyolysis Metformin (Verified Allergy, Unknown, Rash, 02/12/17) Reported Meds & Prescriptions Reported Meds & Active Scripts Active Lortab (Hydrocodone-Acetaminophen) 5-325 Mg Tab 1 Tab PO Q6H PRN Lisinopril 40 Mg Tab 40 Mg PO BID Lantus Solostar Pen Inj (Insulin Glargine) 300 Unit/3 Ml Pen 48 Units SQ HS Aspirin EC (Aspirin) 81 Mg Tabdr 81 Mg PO DAILY Walker with Front Wheels (Device) 1 Mis Mis 1 Ea .ROUTE DIRECTED Reported Potassium Chloride ER (Potassium Chloride) 20 Meq Tab 20 Meq PO BID Gabapentin 300 Mg Cap 300 Mg PO BID Coreg (Carvedilol) 25 Mg Tab 25 Mg PO BID Flomax (Tamsulosin HCl) 0.4 Mg Cap 0.4 Mg PO HS Review of Systems Except as stated in HPI: all other systems reviewed are Neg General / Constitutional: No: Fever, Chills Cardiovascular: No: Chest Pain or Discomfort, Palpitations Respiratory: No: Cough, Shortness of Breath Gastrointestinal: Positive: Abdominal Pain (suprapubic), No: Nausea, Vomiting Genitourinary: Positive: Hematuria, Other (urinary retention) Physical Exam Narrative GENERAL: Well-nourished, well-developed patient, in obvious discomfort.. SKIN: Focused skin assessment warm/dry. HEAD: Normocephalic. EYES: No scleral icterus. No injection or drainage. NECK: Supple, trachea midline. No JVD or lymphadenopathy. GASTROINTESTINAL: Abdomen soft, nondistended. The patient has subjective suprapubic discomfort. There is no rebound or guarding. MUSCULOSKELETAL: No cyanosis, or edema. NEUROLOGICAL: Awake and alert. Cranial nerves II through XII intact. Motor grossly within normal limits. Five out of 5 muscle strength in all muscle groups. Normal speech. Data Data Last Documented VS Vital Signs Date Time Temp Pulse Resp B/P Pulse Ox O2 Delivery O2 Flow Rate FiO2 02/12/17 15:35 78 18 154/87 100 Room Air 02/12/17 14:00 98.3 Orders Urinary Catheter Insert/Apply (02/12/17 14:15) Bladder/Catheter Irrigation (02/12/17 14:15) Morphine Inj (Morphine Inj) (02/12/17 15:00) Ondansetron Inj (Zofran Inj) (02/12/17 15:00) Ua Includes Microscopic (02/12/17 16:19) Complete Blood Count With Diff (02/12/17 17:05) Comprehensive Metabolic Panel (02/12/17 17:05) Prothrombin Time / Inr (Pt) (02/12/17 17:05) Act Partial Throm Time (Ptt) (02/12/17 17:05) Admit Order (Ed Use Only) (02/12/17 17:06) MDM Medical Decision Making Medical Screen Exam Complete: Yes Emergency Medical Condition: Yes Differential Diagnosis Urinary retention versus urinary blood clots versus urinary tract infection Narrative Course 57-year-old male with a history of prostate cancer, presents here with complaints of inability to urinate and passing blood clots in his penis. The patient called his urologist who told him to come to the ER for a catheter placement and flushing of his urine. The patient had red colored urine after catheter placement. There is roughly 300 cc of urine drained. The patient states he feels much improved. He does have red orange colored urine. He is currently taking Azo. This is likely the cause of the colored urine. After the second 3000 cc urine flush, the patient started back up again with jairo hematuria. It is, he'll be admitted to it with continued bladder irrigation. The call was made to Dr. Lan Mar with [facility] who is agreeable to the admission. He'll be placed initially under 23 hour observation. There will be a consult with urology. Diagnosis Primary Impression: persistent hematuria. Additional Impressions: Diabetes mellitus, type 2 Hypertension Admitting Information Admitting Physician Requests: Observation Scripts Hydrocodone-Acetaminophen (Lortab)5-325 Mg Tab1 Tab PO Q6H PRN (PAIN) #10 TAB Ref 0 Prov:Da Iqbal MD 02/12/17 Da Iqbal MD Feb 12, 2017 15:16
[2017-02-12 15:35] VITALS: BP 154/87; PULSE 78; RESP 18; O2SAT 100
[2017-02-12] MEDS ORDERED: HYDR-3533 PO (16:25)
[2017-02-12 17:06] LABS: BLOOD, URINE LARGE (NEG); GLUCOSE,URINE 500 mg/dL (NEG); KETONE, URINE NEG (NEG); PH, URINE 6.5 (5.0-8.5)
[2017-02-12 17:22] LABS: NITRITE,URINE POS (NEG)
[2017-02-12 17:25] LABS: METHOD OF COLLECTION VOIDED; URINE COLOR RED (YELLW/STRAW)
[2017-02-12 17:27] LABS: COMMENT (UR) CULT NOT INDICATED; COMMENT2 (UR) CULT NOT INDICATED; RBC, URINE 100-200 /hpf (0-3); WBC, URINE 0-2 /hpf (0-5)
[2017-02-12 17:37] LABS: AUTOMATED NEUTROPHIL # 8.1 TH/MM3 (1.8-7.7); BASOPHIL % 0.5 % (0.0-2.0); EOSINOPHIL % 0.4 % (0.0-4.0); HEMATOCRIT 30.6 % (39.0-51.0); LYMPH % 11.9 % (9.0-44.0); LYMPHOCYTE # 1.2 TH/MM3 (1.0-4.8); MEAN CELL VOLUME 70.8 FL (80.0-100.0); MEAN CORPUSCULAR HGB CONC 32.5 % (32.0-36.0); MONO % 4.5 % (0.0-8.0); NEUT % 82.7 % (16.0-70.0); PLATELET COUNT 331 TH/MM3 (150-450); RED BLOOD COUNT 4.33 MIL/MM3 (4.50-5.90); RED CELL DISTRIBUTION WIDTH 17.2 % (11.6-17.2); WHITE BLOOD COUNT 9.7 TH/MM3 (4.0-11.0)
[2017-02-12 17:39] LABS: HEMO FLAGS AUTO DIFF
[2017-02-12 17:47] LABS: CHLORIDE 104 MEQ/L (98-107); POTASSIUM 4.4 MEQ/L (3.5-5.1); SODIUM (NA) 138 MEQ/L (136-145)
[2017-02-12 17:50] LABS: ANION GAP 9 MEQ/L (5-15); APTT (PATIENT) 29.8 SEC (24.3-30.1); BICARBONATE 25.4 MEQ/L (21.0-32.0); PROTHROMBIN TIME - PATIENT 11.3 SEC (9.8-11.6)
[2017-02-12 17:51] LABS: BLOOD UREA NITROGEN 32 MG/DL (7-18)
[2017-02-12 17:53] LABS: ALT (GPT) 15 U/L (12-78)
[2017-02-12 17:54] LABS: AST (GOT) 16 U/L (15-37); GLOMERULAR FILTRATION RATE 39 ML/MIN (>89)
[2017-02-12 17:55] LABS: TOTAL BILIRUBIN ADULT 0.2 MG/DL (0.2-1.0)
[2017-02-12 17:56] LABS: ALKALINE PHOSPHATASE 736 U/L (45-117)
[2017-02-12 18:09] LABS: PLATELET ESTIMATE SMEAR NORMAL (NORMAL)
--- NOTE | 2017-02-12 18:09 | HHI.HP ---
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 Patient states over the past several weeks he's been having severe pelvic pain and occasional episode of dysuria despite AZO that he has been taking for the past several months. He has coronary his urologist today with advised patient to complete the ED he noted to have a Celaya Catheter replaced. Patient denies any hemoptysis, GI bleed. 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 Scott Left testicle removal with prosthetic testicle insertion in 1986 at [facility] Reported Medications Lortab (Hydrocodone-Acetaminophen) 5-325 Mg Tab 1 Tab PO Q6H PRN Lisinopril 40 Mg Tab 40 Mg PO BID Lantus Solostar Pen Inj (Insulin Glargine) 300 Unit/3 Ml Pen 48 Units SQ HS Aspirin EC (Aspirin) 81 Mg Tabdr 81 Mg PO DAILY Potassium Chloride ER (Potassium Chloride) 20 Meq Tab 20 Meq PO BID Gabapentin 300 Mg Cap 300 Mg PO BID Coreg (Carvedilol) 25 Mg Tab 25 Mg PO BID Flomax (Tamsulosin HCl) 0.4 Mg Cap 0.4 Mg PO HS Allergies: Coded Allergies: Glyburide (Verified Allergy, Severe, RASH, 02/12/17) HMG-CoA Reductase Inhibitors (Verified Allergy, Unknown, 02/12/17) rhabdomyolysis Metformin (Verified Allergy, Unknown, Rash, 02/12/17) Family History Family history is positive for diabetes mellitus, heart disease, and hypertension Patient's father from pancreatic cancer Patient's mother has heart valve replacement Social History Tobacco: None Alcohol: None Illicit drugs: None Physical Exam Vital Signs Vital Signs Date Time Temp Pulse Resp B/P Pulse Ox O2 Delivery O2 Flow Rate FiO2 02/12/17 15:35 78 18 154/87 100 Room Air 02/12/17 14:00 98.3 77 20 98 Physical Exam GENERAL: This is a well-nourished, well-developed patient, in no apparent distress. SKIN: No rashes, ecchymoses or lesions. Cool and dry. HEAD: Atraumatic. Normocephalic. No temporal or scalp tenderness. EYES: Pupils equal round and reactive. Extraocular motions intact. No scleral icterus. No injection or drainage. ENT: Nose without bleeding, purulent drainage or septal hematoma. Throat without erythema, tonsillar hypertrophy or exudate. Uvula midline. Airway patent. NECK: Trachea midline. No JVD or lymphadenopathy. Supple, nontender, no meningeal signs. CARDIOVASCULAR: Regular rate and rhythm without murmurs, gallops, or rubs. RESPIRATORY: Clear to auscultation. Breath sounds equal bilaterally. No wheezes , rales, or rhonchi. GASTROINTESTINAL: Abdomen soft, non-tender, nondistended. No hepato-splenomegaly , or palpable masses. No guarding. : Celaya in placed with gross hematuria MUSCULOSKELETAL: Extremities without clubbing, cyanosis, or edema. No joint tenderness, effusion, or edema noted. No calf tenderness. Negative Homans sign bilaterally. NEUROLOGICAL: Awake and alert. Cranial nerves II through XII intact. Motor and sensory grossly within normal limits. Five out of 5 muscle strength in all muscle groups. Normal speech. Laboratory Laboratory Tests Test 02/12/17 02/12/17 16:50 17:25 Urine Collection Type VOIDED Urine Color RED Urine Turbidity CLOUDY Urine pH 6.5 Urine Specific [place] 1.023 Urine Protein 300 OR GREATER Urine Glucose (UA) 500 Urine Ketones NEG Urine Occult Blood LARGE Urine Nitrite POS Urine Bilirubin NEG Urine Leukocyte Esterase TRACE Urine RBC 100-200 Urine WBC 0-2 Urine Bacteria NONE Microscopic Urinalysis Comment CULT NOT INDICATED Urine Collection Time 1650 White Blood Count 9.7 Red Blood Count 4.33 Hemoglobin 10.0 Hematocrit 30.6 Mean Corpuscular Volume 70.8 Mean Corpuscular Hemoglobin 23.0 Mean Corpuscular Hemoglobin 32.5 Concent Red Cell Distribution Width 17.2 Platelet Count 331 Mean Platelet Volume 7.6 Neutrophils (%) (Auto) 82.7 Lymphocytes (%) (Auto) 11.9 Monocytes (%) (Auto) 4.5 Eosinophils (%) (Auto) 0.4 Basophils (%) (Auto) 0.5 Neutrophils # (Auto) 8.1 Lymphocytes # (Auto) 1.2 Monocytes # (Auto) 0.4 Eosinophils # (Auto) 0.0 Basophils # (Auto) 0.0 CBC Comment AUTO DIFF Prothrombin Time 11.3 Prothromb Time International 1.0 Ratio Activated Partial 29.8 Thromboplast Time Sodium Level 138 Potassium Level 4.4 Chloride Level 104 Carbon Dioxide Level 25.4 Anion Gap 9 Blood Urea Nitrogen 32 Creatinine 1.80 Estimat Glomerular Filtration 39 Rate Random Glucose 264 Calcium Level 8.5 Total Bilirubin 0.2 Aspartate Amino Transf 16 (AST/SGOT) Alanine Aminotransferase 15 (ALT/SGPT) Alkaline Phosphatase 736 Total Protein 7.4 Albumin 2.3 Result Diagram: 02/12/17 1725 02/12/17 1725 Assessment and Plan Problem List: (1) Hematuria ICD Code: R31.9 Status: Acute (2) UTI (urinary tract infection) ICD Code: N39.0 Status: Acute Assessment and Plan 57-year-old man with History of prostate cancer and now with gross hematuria Continue with aggressive Bladder condition with [facility] Urology consultation Check renal ultrasound Serial H&H monitoring Resume Flomax and hold aspirin Microcytic anemia of acute on chronic disease H&H stable Serial H&H monitoring, transfuse for hemoglobin less than 8 Abnormal UA Likely secondary to UTI Start Rocephin IV daily Monitor urine culture Diabetes type 2 Labile blood glucose Start medium sliding scale with fingerstick blood glucose monitoring Resume basal insulin Check A1c Acute renal failure Prerenal Gentle IV fluid hydration Hypertension Labile BP Resume Coreg Hydralazine when necessary DVT prophylaxis: Chemical anti-prophylactic contraindicated secondary to gross hematuria, bilateral SCDs Code Status Full code Discussed Condition With Patient, ED physician Physician Certification 2 Midnight Certification Type: Admission for Inpatient Services Order for Inpatient Services The services are ordered in accordance with Medicare regulations or non- Medicare payer requirements, as applicable. In the case of services not specified as inpatient-only, they are appropriately provided as inpatient services in accordance with the 2-midnight benchmark. Estimated LOS (days): 2 days is the estimated time the patient will need to remain in the hospital, assuming treatment plan goals are met and no additional complications. Post-Hospital Plan: Not yet determined Lan West MD Feb 12, 2017 18:09
[2017-02-12 18:10] LABS: PLATELET MORPHOLOGY NORMAL (NORMAL); SCAN/DIFF AUTO DIFF CONFIRMED
[2017-02-12] MEDS ORDERED: ACETAMINOPHEN/HYDROcodone 325 MG/5 MG TAB PO PRN (18:15)
[2017-02-12] MEDS ORDERED: TEMAZEPAM 15 MG CAP PO PRN (18:15)
[2017-02-12] MEDS ORDERED: DEXTROSE 50% IN WATER 50 ML VIAL(D50) IV PRN (18:15)
[2017-02-12] MEDS ORDERED: NALOXONE HCL 0.4 MG/ML AMP IV PRN (18:15)
[2017-02-12] MEDS ORDERED: ACETAMINOPHEN 325 MG TAB PO PRN ×2 (18:15)
[2017-02-12] MEDS ORDERED: GLUCAGON 1 MG/ML VIAL OTHER PRN (18:15)
[2017-02-12] MEDS ORDERED: hydrALAZINE HCL 25 MG TAB PO PRN (18:45)
[2017-02-12] MEDS: ACETAMINOPHEN/HYDROcodone 325 MG/7.5 MG TAB PO PRN (19:14)
[2017-02-12] MEDS: INSULIN ASPART SUPPLEMENTAL SCALE SQ SCH (19:15)
--- NOTE | 2017-02-12 19:50 | RADRPT ---
EXAM DATE/TIME: 02/12/2017 19:20 [facility] COMPARISON: No previous studies available for comparison. INDICATIONS : Hematuria. MEDICAL HISTORY : Hypertension. Diabetic neuroopathy, left foot. Congestive heart failure. Carcinoma, testicular. Osteoarthritis. Diabetes. Carcinoma, embryonocel. SURGICAL HISTORY : Cardiac catheterization. Coronary stent. Left foot surgery. Testicular surgery due to carcinoma. ENCOUNTER: Initial ACUITY: 1 week PAIN SCORE: 7/10 LOCATION: Bilateral flank MEASUREMENTS: RIGHT KIDNEY: 13.2 x 5.9 x 5.7 cm LEFT KIDNEY: 13.9 x 5.7 x 6.1 cm FINDINGS: RIGHT KIDNEY: Renal cortex is normal in thickness and echotexture. No hydronephrosis, stone, or mass. LEFT KIDNEY: Moderate to severe hydronephrosis has developed. BLADDER: Celaya. Thick walled. CONCLUSION: 1. Moderate to severe left hydronephrosis has developed. 2. Nonspecific wall thickening of the urinary bladder. A Celaya catheters present. 3. No acute abnormality seen in the right kidney. Rogerio Starr MD on February 12, 2017 at 19:47 Board Certified Radiologist. This report was verified electronically.
[2017-02-12 20:00] VITALS: BP 93/62; PULSE 76; RESP 18; TEMP 98.7; O2SAT 95
[2017-02-12] MEDS: cefTRIAXone INJ 1,000 MG in SODIUM CHLORIDE 0.9% INJ 100 ML IV SCH (20:58)
[2017-02-12] MEDS: SODIUM CHLORIDE 0.9% FLUSH 10 ML FLUSH IV FLUSH SCH (20:59)
[2017-02-12] MEDS: INSULIN DETEMIR 100 UNITS/ML VIAL SQ SCH ×2 (21:00→21:15)
[2017-02-12] MEDS: LISINOPRIL 20 MG TAB PO SCH (21:00)
[2017-02-12] MEDS: GABAPENTIN 300 MG CAP PO SCH (21:06)
[2017-02-12] MEDS: TAMSULOSIN HCL 0.4 MG CAP PO SCH (21:06)
[2017-02-12] MEDS: CARVEDILOL 12.5 MG TAB PO SCH (21:07)
[2017-02-12] MEDS: MORPHINE SULFATE 4 MG/ML INJ IV PRN (22:24)
[2017-02-12] MEDS: SODIUM CHLORIDE 0.9% FLUSH 10 ML FLUSH IV FLUSH PRN (22:25)
[2017-02-13] VITALS: BP 91/58; PULSE 75; RESP 18; TEMP 97.3; O2SAT 94
[2017-02-13 05:37] LABS: AUTOMATED NEUTROPHIL # 4.9 TH/MM3 (1.8-7.7); BASOPHIL % 0.5 % (0.0-2.0); EOSINOPHIL # 0.3 TH/MM3 (0-0.4); EOSINOPHIL % 3.7 % (0.0-4.0); HEMATOCRIT 29.1 % (39.0-51.0); LYMPH % 21.9 % (9.0-44.0); LYMPHOCYTE # 1.7 TH/MM3 (1.0-4.8); MEAN CORPUSCULAR HEMOGLOBIN 22.8 PG (27.0-34.0); MEAN CORPUSCULAR HGB CONC 31.6 % (32.0-36.0); MONO % 9.2 % (0.0-8.0); NEUT % 64.7 % (16.0-70.0); PLATELET COUNT 321 TH/MM3 (150-450); RED BLOOD COUNT 4.04 MIL/MM3 (4.50-5.90); WHITE BLOOD COUNT 7.6 TH/MM3 (4.0-11.0)
[2017-02-13 05:51] LABS: CHLORIDE 105 MEQ/L (98-107); POTASSIUM 4.1 MEQ/L (3.5-5.1); SODIUM (NA) 140 MEQ/L (136-145)
[2017-02-13 05:53] LABS: HEMO FLAGS AUTO DIFF
[2017-02-13 05:56] LABS: ANION GAP 7 MEQ/L (5-15); BICARBONATE 27.6 MEQ/L (21.0-32.0)
[2017-02-13] MEDS: SODIUM CHLORIDE 0.9% FLUSH 10 ML FLUSH IV FLUSH PRN (06:23)
[2017-02-13] MEDS: MORPHINE SULFATE 4 MG/ML INJ IV PRN ×2 (06:23→16:56)
[2017-02-13] MEDS: INSULIN ASPART SUPPLEMENTAL SCALE SQ SCH ×4 (06:26→20:52)
[2017-02-13 06:35] LABS: ALKALINE PHOSPHATASE 631 U/L (45-117); ALT (GPT) 12 U/L (12-78); AST (GOT) 9 U/L (15-37); BLOOD UREA NITROGEN 42 MG/DL (7-18); GLOMERULAR FILTRATION RATE 31 ML/MIN (>89); TOTAL BILIRUBIN ADULT 0.2 MG/DL (0.2-1.0)
[2017-02-13 06:42] LABS: OVALOCYTES 1+ (NORMAL); SCAN/DIFF AUTO DIFF CONFIRMED
[2017-02-13] MEDS: SODIUM CHLOR 0.9% 1000 ML INJ 1,000 ML IV SCH ×2 (07:30→20:51)
[2017-02-13 08:00] VITALS: BP 110/72; PULSE 74; RESP 18; TEMP 98.3; O2SAT 96
[2017-02-13] MEDS: SODIUM CHLORIDE 0.9% FLUSH 10 ML FLUSH IV FLUSH SCH ×2 (08:38→20:51)
[2017-02-13] MEDS: GABAPENTIN 300 MG CAP PO SCH ×2 (08:39→20:51)
[2017-02-13] MEDS: LISINOPRIL 20 MG TAB PO SCH ×2 (08:39→20:52)
[2017-02-13] MEDS: ACETAMINOPHEN/HYDROcodone 325 MG/7.5 MG TAB PO PRN ×2 (08:39→20:57)
[2017-02-13] MEDS: CARVEDILOL 12.5 MG TAB PO SCH ×2 (08:39→20:51)
--- NOTE | 2017-02-13 09:12 | HHI.PR ---
Subjective Remarks Follow-up gross hematuria/UTI 02/13/17-patient seen and examined, denies any significant pelvic distention. Currently on CBI with improving hematuria. Renal indices worsening. Afebrile and denies any shortness of breath Objective Vitals Vital Signs Date Time Temp Pulse Resp B/P Pulse Ox O2 Delivery O2 Flow Rate FiO2 02/13/17 08:37 18 02/13/17 08:00 98.3 74 18 110/72 96 02/13/17 00:00 97.3 75 18 91/58 94 02/12/17 20:00 98.7 76 18 93/62 95 02/12/17 15:35 78 18 154/87 100 Room Air 02/12/17 14:00 98.3 77 20 98 I/O 02/12/17 02/12/17 02/12/17 02/13/17 02/13/17 02/13/17 07:00 15:00 23:00 07:00 15:00 23:00 Intake Total 100 ml Output Total 3800 ml 1175 ml 6000 ml Balance -3700 ml -1175 ml -6000 ml Intake IV Total 100 ml Output Urine Total 3800 ml 1175 ml 6000 ml Result Diagram: 02/13/17 0450 02/13/17 0450 Imaging Last Impressions Renal Ultrasound 02/12/17 0000 Signed Impressions: Service Date/Time: Sunday, February 12, 2017 19:20 - CONCLUSION: 1. Moderate to severe left hydronephrosis has developed. 2. Nonspecific wall thickening of the urinary bladder. A Celaya catheters present. 3. No acute abnormality seen in the right kidney. Rogerio Starr MD Objective Remarks GENERAL: NAD SKIN: Warm and dry. HEAD: Normocephalic. EYES: No scleral icterus. No injection or drainage. NECK: Supple, trachea midline. No JVD or lymphadenopathy. CARDIOVASCULAR: Regular rate and rhythm without murmurs, gallops, or rubs. RESPIRATORY: Breath sounds equal bilaterally. No accessory muscle use. GASTROINTESTINAL: Abdomen soft, non-tender, nondistended. MUSCULOSKELETAL: No cyanosis, or edema. BACK: Nontender without obvious deformity. No CVA tenderness. A/P Problem List: (1) Hematuria ICD Code: R31.9 Status: Acute (2) UTI (urinary tract infection) ICD Code: N39.0 Status: Acute Assessment and Plan 57-year-old man with History of prostate cancer and now with gross hematuria Continue with aggressive Bladder irrigation with CBI Urology consultation pending Renal ultrasound noted Serial H&H monitoring Continue Flomax and hold aspirin Microcytic anemia of acute on chronic disease H&H stable Serial H&H monitoring, transfuse for hemoglobin less than 8 Abnormal UA/UTI Continue Rocephin IV daily Monitor urine culture Diabetes type 2 Continue medium sliding scale with fingerstick blood glucose monitoring Continue basal insulin A1c pending Acute renal failure Renal indices worsening Prerenal Start Gentle IV fluid hydration Hypertension However low BPs Continue Coreg with holding parameters Hydralazine when necessary DVT prophylaxis: Chemical anti-prophylactic contraindicated secondary to gross hematuria, bilateral SCDs Lan West MD Feb 13, 2017 09:12
--- NOTE | 2017-02-13 11:15 | PD.CONS ---
[facility] Service Urology Consult Requested By Dr West Reason for Consult Gross hematuria Primary Care Physician Da Iqbal MD Diagnosis: (1) Hematuria ICD Code: R31.9 (2) UTI (urinary tract infection) ICD Code: N39.0 History of Present Illness 57-year-old gentleman with history prostate cancer who is under the care of Dr. Sepulveda and being managed with androgen deprivation therapy. Patient reports that he has been experiencing pelvic pain and dysuria over the past several weeks and just recently developed gross hematuria. Patient contacted Dr. Sepulveda 's office and was advised to come to the emergency room to have a Celaya catheter placed. Upon arrival to the emergency room a Celaya catheter was placed however irrigation was required to facilitate drainage due to small clots. The patient was started on continuous bladder irrigation and admitted. A urology consult is now placed regarding further recommendations. At the time of consultation the continuous bladder irrigation was running at a slow rate with light red return. There was no evidence of any clots. The patient also had a renal ultrasound study performed which demonstrated left hydronephrosis. The patient denied any left flank pain and reports that Dr. Sepulveda was aware of this and believes it may be related to the prostate cancer causing ureteral obstruction. Patient also has a significant past urologic history for left sided testicular cancer and underwent a left radical orchiectomy in 1986 at the [facility] in [place]. He has not had evidence of recurrent disease to date. Review of Systems Constitutional: DENIES: Fever, Night Sweats Cardiovascular: DENIES: Chest pain Gastrointestinal: DENIES: Abdominal pain Genitourinary: COMPLAINS OF: Hematuria, Dysuria Musculoskeletal: DENIES: Back pain Except as stated in HPI: all other systems reviewed are Neg Past Family Social History Past Medical History Prostate cancer Testicular cancer Diabetes mellitus Hypertension Coronary artery disease Congestive heart failure Depression History anterior cruciate ligament tear Past Surgical History Status post left radical orchiectomy 1986 Status post cardiac stent placement 2007 Left foot debridement 2016 Reported Medications Refer to EMR Allergies: Coded Allergies: Glyburide (Verified Allergy, Severe, RASH, 02/12/17) HMG-CoA Reductase Inhibitors (Verified Allergy, Unknown, 02/12/17) rhabdomyolysis Metformin (Verified Allergy, Unknown, Rash, 02/12/17) Active Ordered Medications Refer to EMR Family History Pancreatic cancer Cardiac valvular disease Hypertension Diabetes mellitus Social History Denies tobacco, alcohol or intravenous drug abuse history Physical Exam Vital Signs Date Time Temp Pulse Resp B/P Pulse Ox O2 Delivery O2 Flow Rate FiO2 02/13/17 09:42 18 02/13/17 08:37 18 02/13/17 08:00 98.3 74 18 110/72 96 02/13/17 00:00 97.3 75 18 91/58 94 02/12/17 20:00 98.7 76 18 93/62 95 02/12/17 15:35 78 18 154/87 100 Room Air 02/12/17 14:00 98.3 77 20 98 Physical Exam GENERAL: This is a well-nourished, well-developed patient, in no apparent distress. SKIN: No rashes, ecchymoses or lesions. Cool and dry. HEAD: Atraumatic. Normocephalic. No temporal or scalp tenderness. EYES: Pupils equal round and reactive. Extraocular motions intact. No scleral icterus. No injection or drainage. ENT: Nose without bleeding, purulent drainage or septal hematoma. Throat without erythema, tonsillar hypertrophy or exudate. Uvula midline. Airway patent. NECK: Trachea midline. No JVD or lymphadenopathy. Supple, nontender, no meningeal signs. GASTROINTESTINAL: Abdomen soft, non-tender, nondistended. No hepato-splenomegaly , or palpable masses. No guarding. GENITOURINARY: Celaya catheter in place draining light red urine with slow rate continuous bladder irrigation. Bladder not distended. MUSCULOSKELETAL: Extremities without clubbing, cyanosis, or edema. No joint tenderness, effusion, or edema noted. No calf tenderness. Negative Homans sign bilaterally. NEUROLOGICAL: Awake and alert. Cranial nerves II through XII intact. Motor and sensory grossly within normal limits. Five out of 5 muscle strength in all muscle groups. Normal speech. Lab results reviewed: Yes Laboratory Tests Test 02/12/17 02/12/17 02/13/17 16:50 17:25 04:50 Urine Collection Type VOIDED Urine Color RED Urine Turbidity CLOUDY Urine pH 6.5 Urine Specific [place] 1.023 Urine Protein 300 OR GREATER Urine Glucose (UA) 500 Urine Ketones NEG Urine Occult Blood LARGE Urine Nitrite POS Urine Bilirubin NEG Urine Leukocyte Esterase TRACE Urine RBC 100-200 Urine WBC 0-2 Urine Bacteria NONE Microscopic Urinalysis Comment CULT NOT INDICATED Urine Collection Time 1650 White Blood Count 9.7 7.6 Red Blood Count 4.33 4.04 Hemoglobin 10.0 9.2 Hematocrit 30.6 29.1 Mean Corpuscular Volume 70.8 72.0 Mean Corpuscular Hemoglobin 23.0 22.8 Mean Corpuscular Hemoglobin 32.5 31.6 Concent Red Cell Distribution Width 17.2 17.0 Platelet Count 331 321 Mean Platelet Volume 7.6 8.0 Neutrophils (%) (Auto) 82.7 64.7 Lymphocytes (%) (Auto) 11.9 21.9 Monocytes (%) (Auto) 4.5 9.2 Eosinophils (%) (Auto) 0.4 3.7 Basophils (%) (Auto) 0.5 0.5 Neutrophils # (Auto) 8.1 4.9 Lymphocytes # (Auto) 1.2 1.7 Monocytes # (Auto) 0.4 0.7 Eosinophils # (Auto) 0.0 0.3 Basophils # (Auto) 0.0 0.0 CBC Comment AUTO DIFF AUTO DIFF Differential Comment AUTO DIFF AUTO DIFF CONFIRMED CONFIRMED Platelet Estimate NORMAL Platelet Morphology Comment NORMAL Prothrombin Time 11.3 Prothromb Time International 1.0 Ratio Activated Partial 29.8 Thromboplast Time Sodium Level 138 140 Potassium Level 4.4 4.1 Chloride Level 104 105 Carbon Dioxide Level 25.4 27.6 Anion Gap 9 7 Blood Urea Nitrogen 32 42 Creatinine 1.80 2.20 Estimat Glomerular Filtration 39 31 Rate Random Glucose 264 157 Calcium Level 8.5 7.9 Total Bilirubin 0.2 0.2 Aspartate Amino Transf 16 9 (AST/SGOT) Alanine Aminotransferase 15 12 (ALT/SGPT) Alkaline Phosphatase 736 631 Total Protein 7.4 6.9 Albumin 2.3 2.1 Ovalocytes 1+ Result Diagram: 02/13/17 0450 02/13/17 0450 Personally reviewed images: Yes Imaging Last Impressions Renal Ultrasound 02/12/17 0000 Signed Impressions: Service Date/Time: Sunday, February 12, 2017 19:20 - CONCLUSION: 1. Moderate to severe left hydronephrosis has developed. 2. Nonspecific wall thickening of the urinary bladder. A Celaya catheters present. 3. No acute abnormality seen in the right kidney. Rogerio Starr MD Assessment and Plan Assessment and Plan Urologic impression: #1 new onset gross hematuria likely related to the patient's prostate cancer #2 left hydronephrosis related to the prostate cancer causing left ureteral obstruction Recommendations: #1 continue with continuous bladder irrigation and slowly titrate off as urine clears #2 DC home with Celaya catheter to gravity drainage once hematuria resolved #3 patient to keep his follow up appointment with Dr. Sepulveda regarding ongoing care of the prostate cancer and left hydronephrosis Casey Gutierrez MD Feb 13, 2017 11:15
[2017-02-13 12:00] VITALS: BP 108/68; PULSE 78; RESP 17; TEMP 98.1; O2SAT 95
[2017-02-13] MEDS: ONDANSETRON HCL 4 MG/2 ML VIAL IVP PRN (13:03)
[2017-02-13 20:00] VITALS: BP 145/78; PULSE 90; RESP 20; TEMP 100.4; O2SAT 94
[2017-02-13] MEDS: TAMSULOSIN HCL 0.4 MG CAP PO SCH (20:51)
[2017-02-13] MEDS: cefTRIAXone INJ 1,000 MG in SODIUM CHLORIDE 0.9% INJ 100 ML IV SCH (20:52)
[2017-02-13] MEDS: INSULIN DETEMIR 100 UNITS/ML VIAL SQ SCH (20:55)
[2017-02-14] VITALS: BP 125/77; PULSE 84; RESP 22; TEMP 100; O2SAT 93
[2017-02-14] MEDS: ONDANSETRON HCL 4 MG/2 ML VIAL IVP PRN (00:39)
[2017-02-14] MEDS: SODIUM CHLORIDE 0.9% FLUSH 10 ML FLUSH IV FLUSH PRN (00:39)
[2017-02-14] MEDS: MORPHINE SULFATE 4 MG/ML INJ IV PRN (00:39)
[2017-02-14 04:00] VITALS: BP 102/58; PULSE 79; RESP 20; TEMP 98.5; O2SAT 93
[2017-02-14] MEDS: INSULIN ASPART SUPPLEMENTAL SCALE SQ SCH ×3 (06:41→16:20)
[2017-02-14] MEDS: SODIUM CHLORIDE 0.9% FLUSH 10 ML FLUSH IV FLUSH SCH (07:57)
[2017-02-14] MEDS: GABAPENTIN 300 MG CAP PO SCH (08:36)
[2017-02-14] MEDS: LISINOPRIL 20 MG TAB PO SCH (08:36)
[2017-02-14] MEDS: CARVEDILOL 12.5 MG TAB PO SCH (08:37)
[2017-02-14] MEDS: SODIUM CHLOR 0.9% 1000 ML INJ 1,000 ML IV SCH (08:37)
--- NOTE | 2017-02-14 09:08 | HHI.PR ---
Subjective Remarks Follow-up gross hematuria/UTI 02/13/17-patient seen and examined, denies any significant pelvic distention. Currently on CBI with improving hematuria. Renal indices worsening. Afebrile and denies any shortness of breath 02/14/17-patient seen and examined, not patient has clear urine, no acute event overnight Objective Vitals Vital Signs Date Time Temp Pulse Resp B/P Pulse Ox O2 Delivery O2 Flow Rate FiO2 02/14/17 04:00 98.5 79 20 102/58 93 02/14/17 00:00 100.0 84 22 125/77 93 02/13/17 20:00 100.4 90 20 145/78 94 02/13/17 17:04 18 02/13/17 12:00 98.1 78 17 108/68 95 02/13/17 09:42 18 I/O 02/13/17 02/13/17 02/13/17 02/14/17 02/14/17 02/14/17 07:00 15:00 23:00 07:00 15:00 23:00 Intake Total 122 ml 764 ml Output Total 1175 ml 9000 ml 1850 ml 0 ml Balance -1175 ml -9000 ml -1728 ml 764 ml Intake IV Total 122 ml 764 ml Output Urine Total 1175 ml 9000 ml 1850 ml 0 ml Result Diagram: 02/13/17 0450 02/13/17 0450 Imaging Last Impressions Renal Ultrasound 02/12/17 0000 Signed Impressions: Service Date/Time: Sunday, February 12, 2017 19:20 - CONCLUSION: 1. Moderate to severe left hydronephrosis has developed. 2. Nonspecific wall thickening of the urinary bladder. A Celaya catheters present. 3. No acute abnormality seen in the right kidney. Rogerio Starr MD Objective Remarks GENERAL: NAD SKIN: Warm and dry. HEAD: Normocephalic. EYES: No scleral icterus. No injection or drainage. NECK: Supple, trachea midline. No JVD or lymphadenopathy. CARDIOVASCULAR: Regular rate and rhythm without murmurs, gallops, or rubs. RESPIRATORY: Breath sounds equal bilaterally. No accessory muscle use. GASTROINTESTINAL: Abdomen soft, non-tender, nondistended. MUSCULOSKELETAL: No cyanosis, or edema. BACK: Nontender without obvious deformity. No CVA tenderness. Procedures none A/P Problem List: (1) Hematuria ICD Code: R31.9 Status: Acute (2) UTI (urinary tract infection) ICD Code: N39.0 Status: Acute Assessment and Plan 57-year-old man with History of prostate cancer and now with gross hematuria-now with clear urine Continue with Bladder irrigation with CBI Urology consultation appreciated and patient will be discharged home with Celaya to gravity Renal ultrasound noted Serial H&H monitoring Continue Flomax and hold aspirin left hydronephrosis related to the prostate cancer causing left ureteral obstruction Patient needs to follow-up with urology today 02/14/17 Microcytic anemia of acute on chronic disease H&H stable Serial H&H monitoring, transfuse for hemoglobin less than 8 Abnormal UA/UTI Continue Rocephin IV daily Monitor urine culture Diabetes type 2 Continue medium sliding scale with fingerstick blood glucose monitoring Continue basal insulin A1c pending Acute renal failure Prerenal Continue Gentle IV fluid hydration Hypertension Continue Coreg with holding parameters Hydralazine when necessary DVT prophylaxis: Chemical anti-prophylactic contraindicated secondary to gross hematuria, bilateral SCDs Lan West MD Feb 14, 2017 09:08
[2017-02-14] MEDS ORDERED: CIPR-9 PO (09:11)
--- NOTE | 2017-02-14 09:16 | HHI.DS ---
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 Patient states over the past several weeks he's been having severe pelvic pain and occasional episode of dysuria despite AZO that he has been taking for the past several months. He has coronary his urologist today with advised patient to complete the ED he noted to have a Celaya Catheter replaced. Patient denies any hemoptysis, GI bleed. CBC/BMP: 02/13/17 0450 02/13/17 0450 Significant Findings Laboratory Tests Test 02/12/17 02/12/17 02/13/17 16:50 17:25 04:50 Urine Color RED (YELLW/STRAW) Urine Turbidity CLOUDY (CLEAR) Urine Protein 300 OR GREATER mg/dL (NEG-TRACE) Urine Glucose (UA) 500 mg/dL (NEG) Urine Occult Blood LARGE (NEG) Urine Nitrite POS (NEG) Urine Leukocyte Esterase TRACE (NEG) Urine RBC 100-200 /hpf (0-3) Red Blood Count 4.33 MIL/MM3 4.04 MIL/MM3 (4.50-5.90) (4.50-5.90) Hemoglobin 10.0 GM/DL 9.2 GM/DL (13.0-17.0) (13.0-17.0) Hematocrit 30.6 % 29.1 % (39.0-51.0) (39.0-51.0) Mean Corpuscular Volume 70.8 FL 72.0 FL (80.0-100.0) (80.0-100.0) Mean Corpuscular Hemoglobin 23.0 PG 22.8 PG (27.0-34.0) (27.0-34.0) Neutrophils (%) (Auto) 82.7 % (16.0-70.0) Neutrophils # (Auto) 8.1 TH/MM3 (1.8-7.7) Blood Urea Nitrogen 32 MG/DL (7-18) 42 MG/DL (7-18) Creatinine 1.80 MG/DL 2.20 MG/DL (0.60-1.30) (0.60-1.30) Estimat Glomerular Filtration 39 ML/MIN (>89) 31 ML/MIN (>89) Rate Random Glucose 264 MG/DL 157 MG/DL (74-106) (74-106) Alkaline Phosphatase 736 U/L 631 U/L (45-117) (45-117) Albumin 2.3 GM/DL 2.1 GM/DL (3.4-5.0) (3.4-5.0) Mean Corpuscular Hemoglobin 31.6 % Concent (32.0-36.0) Monocytes (%) (Auto) 9.2 % (0.0-8.0) Ovalocytes 1+ (NORMAL) Calcium Level 7.9 MG/DL (8.5-10.1) Aspartate Amino Transf 9 U/L (15-37) (AST/SGOT) PE at Discharge GENERAL: NAD SKIN: Warm and dry. HEAD: Normocephalic. EYES: No scleral icterus. No injection or drainage. NECK: Supple, trachea midline. No JVD or lymphadenopathy. CARDIOVASCULAR: Regular rate and rhythm without murmurs, gallops, or rubs. RESPIRATORY: Breath sounds equal bilaterally. No accessory muscle use. GASTROINTESTINAL: Abdomen soft, non-tender, nondistended. MUSCULOSKELETAL: No cyanosis, or edema. BACK: Nontender without obvious deformity. No CVA tenderness. Hospital Course Patient admitted secondary to gross hematuria for which aggressive bladder irrigation was starting with CBI with consultation to urology. Patient was also treated for UTI with antibiotic. Patient was started on sliding scale insulin with monitoring of blood glucose. IV fluid hydrations is provided secondary to worsening renal function. Her to discharge, patient's symptoms of hematuria resolved and vitals remained stable. He will be discharged on 7 days course of Cipro 500 mg by mouth twice a day Pt Condition on Discharge: Stable Discharge Disposition: Discharge Home Discharge Time: <= 30 minutes Discharge Instructions DIET: Follow Instructions for: Diabetic Diet Activities you can perform: Regular-No Restrictions Follow up Referrals: PCP Follow-up - 1 Week Urology - Today New Medications: Ciprofloxacin (Cipro) 500 Mg Tab 500 MG PO BID Infection #14 Ref 0 TAB Continued Medications: Aspirin DR (Aspirin EC) 81 Mg Tabdr 81 MG PO DAILY Prevent Blood Clot #30 TAB Carvedilol (Coreg) 25 Mg Tab 25 MG PO BID #60 Ref 0 TAB Gabapentin (Gabapentin) 300 Mg Cap 300 MG PO BID #60 Ref 0 CAP Insulin Glargine Inj (Lantus Solostar Pen Inj) 300 Unit/3 Ml Pen 48 UNITS SQ HS Blood Sugar Management #30 Ref 0 PEN Lisinopril (Lisinopril) 40 Mg Tab 40 MG PO BID Blood Pressure Management #60 Ref 0 TAB Tamsulosin (Flomax) 0.4 Mg Cap 0.4 MG PO HS Manage Prostate Problems #30 Ref 0 CAP Discontinued Medications: Hydrocodone-Acetaminophen (Lortab) 5-325 Mg Tab 1 TAB PO Q6H PRN PAIN #10 Ref 0 TAB Potassium Chloride ER (Potassium Chloride ER) 20 Meq Tab 20 MEQ PO BID Electrolyte Replacement #60 Ref 0 TAB Lan West MD Feb 14, 2017 09:16
[2017-02-14 14:14] VITALS: BP 121/68; PULSE 74; RESP 20; TEMP 98.1; O2SAT 95
== END 2017-02-14 17:11 | disposition home or self-care (01) | DRG 723 ==
LOC: PHED 13:48 → PHEDA 17:08 → OBSVTOIN 18:20 → PH3A 19:58
PROVIDERS: ADMIT Hospitalist; ATTEND Hospitalist
DX: C61 Malignant neoplasm of prostate (principal); N02.9 Recurrent and persistent hematuria with unspecified morphologic changes; N17.9 Acute kidney failure, unspecified; E11.42 Type 2 diabetes mellitus with diabetic polyneuropathy; N13.1 Hydronephrosis with ureteral stricture, not elsewhere classified; I25.10 Atherosclerotic heart disease of native coronary artery without angina pectoris; D50.9 Iron deficiency anemia, unspecified; F32.9 Major depressive disorder, single episode, unspecified; Z79.82 Long term (current) use of aspirin; Z79.84 Long term (current) use of oral hypoglycemic drugs; Z79.4 Long term (current) use of insulin; Z95.5 Presence of coronary angioplasty implant and graft; Z85.47 Personal history of malignant neoplasm of testis
CPT/HCPCS: 51700; 76775; 80053; 81001; 82948; 85025; 85610; 85730; 96372; J0696; J1815; J2270; J2405; J7030

== ENCOUNTER 2017-02-17 07:32 | Inpatient (IN) | payer OTHER, MEDICARE ==
[~2017-02-17] VITALS: Ht 182.9 cm; Wt 88.8 kg
[2017-02-17] VITALS (7 sets, daily range): BP systolic 129–192; BP diastolic 73–97; PULSE 73–87; RESP 17–18; TEMP 97.7–98.8; O2SAT 96–100
[~2017-02-17 07:32] MED LIST changes: -ASCO250C CHEW; -CARD2TAB PO; +CIPR-9 PO; -CRUTMIS25; -DIPH2.5T14 PO; -LACT PO; -POTA-163 PO
[2017-02-17] MEDS ORDERED: ONDANSETRON HCL 4 MG/2 ML VIAL IVP ONE (07:45)
[2017-02-17] MEDS ORDERED: SODIUM CHLORIDE 0.9% FLUSH 10 ML FLUSH IVF PRN (07:45)
[2017-02-17] MEDS ORDERED: MORPHINE SULFATE 4 MG/ML INJ IV PUSH ONE ×2 (07:45→10:45)
--- NOTE | 2017-02-17 07:52 | PD ---
HPI Chief Complaint: Fall Time Seen by Provider: 07:42 Travel History International Travel<30 days: No Contact w/Intl Traveler<30days: No Traveled to known affect area: No History of Present Illness HPI 57 y/o male presents after at 1 AM while he was sleeping he fell out of his bed and came to on the ground. He is not sure if he blacked out or not. He states that his ex- came and helped him and he put ice on his left hip but when he try to walk around this morning he is not able to so he called an ambulance to bring him here. He notes pain to his left hip. He denies any other specific complaints at this time. He states he was recently here and has not had any change in his medical history. He states that he is on a shot for his prostate cancer that makes him a little weaker. Quality of pain is pressure. Severity is moderate. Pain is worse with movement. PFSH Past Medical History Narrative Medical By records Autoimmune Disease: No Anxiety: No Depression: No Cancer: Yes (EMBRYONOCEL 20YRS AGO) Cardiac Catheterization: Yes Cardiovascular Problems: Yes High Cholesterol: Yes Chemotherapy: No Congestive Heart Failure: Yes Diabetes: Yes (TYPE 2) Diminished Hearing: No Endocrine: Yes Genitourinary: Yes Hypertension: Yes Immune Disorder: No Musculoskeletal: Yes Neurologic: Yes (diabetic neuroopathy left foot) Psychiatric: No Reproductive: No Respiratory: No Radiation Therapy: No Thyroid Disease: No ?: Not Past Surgical History Narrative Surgical By records Abdominal Surgery: No AICD: No Arteriovenous Shunt: No Body Medical Devices: cardiac stent Cardiac Surgery: Yes (cardiac stent) Coronary Stent: Yes (TIMES ONE - DR LOCKE) Ear Surgery: No Endocrine Surgery: No Eye Surgery: No Genitourinary Surgery: No Gynecologic Surgery: No Insulin Pump: No Joint Replacement: No Oral Surgery: No Pacemaker: No Thoracic Surgery: No Other Surgery: Yes (TESTICULAR SX DUE TO CA) Social History Alcohol Use: No Tobacco Use: No (never) Substance Use: No Allergies-Medications (Allergen,Severity, Reaction): Coded Allergies: glyburide (Unverified Allergy, Severe, RASH, 02/13/17) amlodipine (Unverified Allergy, Unknown, 02/13/17) rhabdomyolysis atorvastatin (Unverified Allergy, Unknown, 02/13/17) rhabdomyolysis metformin (Unverified Allergy, Unknown, Rash, 02/13/17) pravastatin (Unverified Allergy, Unknown, 02/13/17) rhabdomyolysis simvastatin (Unverified Allergy, Unknown, 02/13/17) rhabdomyolysis Reported Meds & Prescriptions Reported Meds & Active Scripts Active Cipro (Ciprofloxacin HCl) 500 Mg Tab 500 Mg PO BID Lisinopril 40 Mg Tab 40 Mg PO BID Lantus Solostar Pen Inj (Insulin Glargine) 300 Unit/3 Ml Pen 48 Units SQ HS Aspirin EC (Aspirin) 81 Mg Tabdr 81 Mg PO DAILY Walker with Front Wheels (Device) 1 Mis Mis 1 Ea .ROUTE DIRECTED Reported Gabapentin 300 Mg Cap 300 Mg PO BID Coreg (Carvedilol) 25 Mg Tab 25 Mg PO BID Flomax (Tamsulosin HCl) 0.4 Mg Cap 0.4 Mg PO HS Review of Systems Except as stated in HPI: all other systems reviewed are Neg Physical Exam Narrative General: 57 y/o patient in no apparent distress Skin: trauma noted to left elbow and knee with abrasion Eyes: Pupils equal ENT: no septal hematoma NECK: no pain with palpation and range of motion in midline, nexus criteria negative Cardiovascular: Regular rate and rhythm Respiratory: Normal respiratory effort noted, clear to auscultation bilaterally Abdomen: soft, nontender, nondistended Chest wall: Tender to right anterior lower ribs without crepitus or deformity palpated Extremities: Pain with palpation of left hip, left elbow and forearm, no lacerations over, neurovascularly intact, no pain with palpation of other joints Neuro: awake, alert, sensation and motor grossly intact Data Data Last Documented VS Vital Signs Date Time Temp Pulse Resp B/P Pulse Ox O2 Delivery O2 Flow Rate FiO2 02/17/17 08:16 18 02/17/17 07:49 99 Room Air 02/17/17 07:44 97.7 73 192/97 Orders Elbow, Complete (4 Vws) (02/17/17 07:42) Forearm (2vws) (02/17/17 07:42) Complete Blood Count With Diff (02/17/17 07:42) Comprehensive Metabolic Panel (02/17/17 07:42) Prothrombin Time / Inr (Pt) (02/17/17 07:42) Act Partial Throm Time (Ptt) (02/17/17 07:42) Urinalysis - C+S If Indicated (02/17/17 07:42) Type And Screen (02/17/17 07:42) Chest, Single Ap (02/17/17 07:42) Femur (Ap & Lat/2vws) (02/17/17 07:42) Pelvis, Ap Only (Routine) (02/17/17 07:42) Iv Access Insert/Monitor (02/17/17 07:42) Oximetry (02/17/17 07:42) Ecg Monitoring (02/17/17 07:42) Morphine Inj (Morphine Inj) (02/17/17 07:45) Ondansetron Inj (Zofran Inj) (02/17/17 07:45) Sodium Chloride 0.9% Flush (Ns Flush) (02/17/17 07:45) Diet Npo (02/17/17 Breakfast) Ct Brain W/O Iv Contrast(Rout) (02/17/17 ) Ct Pelvis W/O Iv Contrast (02/17/17 ) Admit Order (Ed Use Only) (02/17/17 10:20) Labs Laboratory Tests Test 02/17/17 07:58 White Blood Count 6.3 TH/MM3 Red Blood Count 4.14 MIL/MM3 Hemoglobin 10.0 GM/DL Hematocrit 29.8 % Mean Corpuscular Volume 71.9 FL Mean Corpuscular Hemoglobin 24.2 PG Mean Corpuscular Hemoglobin 33.6 % Concent Red Cell Distribution Width 18.5 % Platelet Count 295 TH/MM3 Mean Platelet Volume 7.8 FL Neutrophils (%) (Auto) 61.8 % Lymphocytes (%) (Auto) 24.4 % Monocytes (%) (Auto) 9.4 % Eosinophils (%) (Auto) 3.1 % Basophils (%) (Auto) 1.3 % Neutrophils # (Auto) 3.9 TH/MM3 Lymphocytes # (Auto) 1.5 TH/MM3 Monocytes # (Auto) 0.6 TH/MM3 Eosinophils # (Auto) 0.2 TH/MM3 Basophils # (Auto) 0.1 TH/MM3 CBC Comment DIFF FINAL Differential Comment Prothrombin Time 11.4 SEC Prothromb Time International 1.0 RATIO Ratio Activated Partial 28.2 SEC Thromboplast Time Sodium Level 139 MEQ/L Potassium Level 4.8 MEQ/L Chloride Level 107 MEQ/L Carbon Dioxide Level 23.4 MEQ/L Anion Gap 9 MEQ/L Blood Urea Nitrogen 29 MG/DL Creatinine 1.68 MG/DL Estimat Glomerular Filtration 42 ML/MIN Rate Random Glucose 174 MG/DL Calcium Level 8.2 MG/DL Total Bilirubin 0.4 MG/DL Aspartate Amino Transf 31 U/L (AST/SGOT) Alanine Aminotransferase 19 U/L (ALT/SGPT) Alkaline Phosphatase 509 U/L Total Protein 7.5 GM/DL Albumin 2.3 GM/DL Blood Type O POSITIVE Antibody Screen NEGATIVE MDM Medical Decision Making Medical Screen Exam Complete: Yes Emergency Medical Condition: Yes Medical Record Reviewed: Yes (pmh confirmed) Interpretation(s) CBC & BMP Diagram 02/17/17 07:58 Last 24 hours Impressions Radius/Ulna X-Ray 02/17/17741 Signed Impressions: Service Date/Time: Friday, February 17, 2017 08:27 - CONCLUSION: No acute fracture. Lan Hurst MD Pelvis X-Ray 02/17/17741 Signed Impressions: Service Date/Time: Friday, February 17, 2017 08:18 - CONCLUSION: 1. There appear to be fractures of the inferior pubic rami bilaterally and possibly the superior pubic ramus on the right. 2. Multiple sclerotic foci concerning for metastatic disease. Lan Hurst MD Femur X-Ray 02/17/1742 Signed Impressions: Service Date/Time: Friday, February 17, 2017 08:21 - CONCLUSION: 1. Intramedullary bone lesion, likely benign. 2. Sclerotic foci in the upper femur and left pelvis. 3. Inferior pubic ramus fracture the left. Lan Hurst MD Elbow X-Ray 02/17/17 0742 Signed Impressions: Service Date/Time: Friday, February 17, 2017 08:27 - CONCLUSION: Soft tissue swelling without fracture. Lan Hurst MD Chest X-Ray 02/17/17 0742 Signed Impressions: Service Date/Time: Friday, February 17, 2017 08:17 - CONCLUSION: 1. Cardiomegaly with slight interstitial prominence. 2. Multiple old left-sided rib fractures. Lan Hurst MD Pelvis CT 02/17/17 0000 Signed Impressions: Service Date/Time: Friday, February 17, 2017 09:34 - CONCLUSION: 1. Fractures of the right superior and inferior pubic rami. 2. Incomplete fractures of the left acetabulum and inferior pubic rami. 3. Diffuse blastic metastatic disease with suspected bladder carcinoma as the source of etiology. 4. Wall thickening of the left urinary bladder measuring 2.3 cm. 5. Retroperitoneal and pelvic adenopathy as well as right inguinal adenopathy likely metastatic. Lan Hurst MD Head CT 02/17/17 0000 Signed Impressions: Service Date/Time: Friday, February 17, 2017 08:37 - CONCLUSION: 1. Nonspecific white matter changes. 2. No acute intracranial abnormality. Lan Hurst MD Differential Diagnosis Fracture, strain, sprain Narrative Course Will check blood work, trauma imaging and dose with morphine and Zofran and reevaluate X-ray shows rami fractures and likely metastatic disease will proceed with CT pelvis for better visualization Patient updated and has not heard of metastatic disease from his cancer that he follows with Dr. Sepulveda. He agrees to admission to the hospital for orthopedic consultation and pain control. Physician Communication Physician Communication dr [email or web address] states no weight bearing on left side dr martinez agrees to admit Diagnosis Primary Impression: Fracture of multiple pubic rami Qualified Code: S32.591A - Closed fracture of multiple rami of right pubis, initial encounter Additional Impressions: Left acetabular fracture Qualified Code: S32.402A - Closed nondisplaced fracture of left acetabulum, unspecified portion of acetabulum, initial encounter Fracture of left inferior pubic ramus Qualified Code: S32.592A - Closed fracture of left inferior pubic ramus, initial encounter Fall Metastasis to bone Admitting Information Admitting Physician Requests: Admit Pauline Rodriguez MD Feb 17, 2017 07:52
[2017-02-17 08:08] LABS: AUTOMATED NEUTROPHIL # 3.9 TH/MM3 (1.8-7.7); BASOPHIL # 0.1 TH/MM3 (0-0.2); BASOPHIL % 1.3 % (0.0-2.0); EOSINOPHIL # 0.2 TH/MM3 (0-0.4); EOSINOPHIL % 3.1 % (0.0-4.0); HEMATOCRIT 29.8 % (39.0-51.0); HEMO FLAGS DIFF FINAL; LYMPH % 24.4 % (9.0-44.0); LYMPHOCYTE # 1.5 TH/MM3 (1.0-4.8); MEAN CELL VOLUME 71.9 FL (80.0-100.0); MEAN CORPUSCULAR HEMOGLOBIN 24.2 PG (27.0-34.0); MEAN CORPUSCULAR HGB CONC 33.6 % (32.0-36.0); MONO % 9.4 % (0.0-8.0); NEUT % 61.8 % (16.0-70.0); PLATELET COUNT 295 TH/MM3 (150-450); RED BLOOD COUNT 4.14 MIL/MM3 (4.50-5.90); RED CELL DISTRIBUTION WIDTH 18.5 % (11.6-17.2); WHITE BLOOD COUNT 6.3 TH/MM3 (4.0-11.0)
[2017-02-17 08:17] LABS: APTT (PATIENT) 28.2 SEC (24.3-30.1); PROTHROMBIN TIME - PATIENT 11.4 SEC (9.8-11.6)
[2017-02-17 08:27] LABS: ALKALINE PHOSPHATASE 509 U/L (45-117); TOTAL BILIRUBIN ADULT 0.4 MG/DL (0.2-1.0)
[2017-02-17 08:33] LABS: ALT (GPT) 19 U/L (12-78); ANION GAP 9 MEQ/L (5-15); AST (GOT) 31 U/L (15-37); BICARBONATE 23.4 MEQ/L (21.0-32.0); BLOOD UREA NITROGEN 29 MG/DL (7-18); CHLORIDE 107 MEQ/L (98-107); GLOMERULAR FILTRATION RATE 42 ML/MIN (>89); POTASSIUM 4.8 MEQ/L (3.5-5.1); SODIUM (NA) 139 MEQ/L (136-145)
--- NOTE | 2017-02-17 08:57 | RADRPT ---
EXAM DATE/TIME: 02/17/2017 08:17 [facility] COMPARISON: No previous studies available for comparison. INDICATIONS : Patient fell out of bed today. MEDICAL HISTORY : Carcinoma, prostatic. SURGICAL HISTORY : None. ENCOUNTER: Initial ACUITY: 1 day PAIN SCORE: 8/10 LOCATION: chest FINDINGS: A single view of the chest demonstrates cardiomegaly with slight interstitial prominence. The cardiom ediastinal contours are unremarkable. Old left-sided rib fractures. No pneumothorax. CONCLUSION: 1. Cardiomegaly with slight interstitial prominence. 2. Multiple old left-sided rib fractures. Lan Hurst MD on February 17, 2017 at 8:55 Board Certified Radiologist. This report was verified electronically.
--- NOTE | 2017-02-17 09:00 | RADRPT ---
EXAM DATE/TIME: 02/17/2017 08:18 [facility] COMPARISON: No previous studies available for comparison. INDICATIONS : Pelvic pain status post fall out of bed today. MEDICAL HISTORY : Carcinoma, prostatic. SURGICAL HISTORY : None. ENCOUNTER: Initial ACUITY: 1 day PAIN SCORE: 8/10 LOCATION: pelvis FINDINGS: A single frontal view of the pelvis demonstrates diffuse sclerotic foci throughout the pelvis. There appear to be fractures of the inferior pubic rami bilaterally and possibly right superior pubic rami. Degenerative changes of the chest CONCLUSION: 1. There appear to be fractures of the inferior pubic rami bilaterally and possibly the superior pubi c ramus on the right. 2. Multiple sclerotic foci concerning for metastatic disease. Lan Hurst MD on February 17, 2017 at 8:57 Board Certified Radiologist. This report was verified electronically.
--- NOTE | 2017-02-17 09:02 | RADRPT ---
EXAM DATE/TIME: 02/17/2017 08:27 [facility] COMPARISON: No previous studies available for comparison. INDICATIONS : Patient complains of left forearm pain status post fall out of bed today. MEDICAL HISTORY : Carcinoma, prostatic. SURGICAL HISTORY : None. ENCOUNTER: Initial ACUITY: 1 day PAIN SCORE: 8/10 LOCATION: Left Forearm FINDINGS: Two view examination of the left forearm demonstrates no evidence of fracture or dislocation. Bony m ineralization is normal. The soft tissue structures are intact. CONCLUSION: No acute fracture. Lan Hurst MD on February 17, 2017 at 9:00 Board Certified Radiologist. This report was verified electronically.
--- NOTE | 2017-02-17 09:02 | RADRPT ---
EXAM DATE/TIME: 02/17/2017 08:21 [facility] COMPARISON: No previous studies available for comparison. INDICATIONS : Patient complains of left femur pain status post fall out of bed today. MEDICAL HISTORY : Carcinoma, prostatic. SURGICAL HISTORY : None. ENCOUNTER: Initial ACUITY: 1 day PAIN SCORE: 8/10 LOCATION: Left Femur FINDINGS: Two view examination of the left femur demonstrates no evidence of fracture or dislocation. Intramedu llary bone lesion seen within the distal femoral shaft. Cortex preserved. No fracture. Inferior pubic ramus fracture the left. Sclerotic foci in the pelvis and left proximal femur. CONCLUSION: 1. Intramedullary bone lesion, likely benign. 2. Sclerotic foci in the upper femur and left pelvis. 3. Inferior pubic ramus fracture the left. Lan Hurts MD on February 17, 2017 at 8:59 Board Certified Radiologist. This report was verified electronically.
--- NOTE | 2017-02-17 09:03 | RADRPT ---
EXAM DATE/TIME: 02/17/2017 08:27 [facility] COMPARISON: No previous studies available for comparison. INDICATIONS : Patient complains of left elbow pain status post fall out of bed today. MEDICAL HISTORY : Carcinoma, prostatic. SURGICAL HISTORY : None. ENCOUNTER: Initial ACUITY: 1 day PAIN SCORE: 8/10 LOCATION: Left Elbow FINDINGS: Multiple view examination of the left elbow demonstrates soft tissue swelling without joint effusion, or fracture. The osseous structures are in normal alignment. Bony mineralization is normal. CONCLUSION: Soft tissue swelling without fracture. Lan Hurst MD on February 17, 2017 at 9:01 Board Certified Radiologist. This report was verified electronically.
--- NOTE | 2017-02-17 09:10 | RADRPT ---
EXAM DATE/TIME: 02/17/2017 08:37 [facility] COMPARISON: No previous studies available for comparison. INDICATIONS : Trauma, fall from bed today. RADIATION DOSE: 36.43 CTDIvol (mGy) MEDICAL HISTORY : Carcinoma, testicular. Carcinoma, prostate. Hypertension. SURGICAL HISTORY : None. ENCOUNTER: Initial ACUITY: 1 day PAIN SCALE: 0/10 LOCATION: Bilateral head TECHNIQUE: Multiple contiguous axial images were obtained of the head. Using automated exposure control and adj ustment of the mA and/or kV according to patient size, radiation dose was kept as low as reasonably a chievable to obtain optimal diagnostic quality images. DICOM format image data is available electro nically for review and comparison. FINDINGS: CEREBRUM: There is a low attenuation throughout the white matter. The ventricles are normal for age. No eviden ce of midline shift, mass lesion, hemorrhage or acute infarction. No extra-axial fluid collections a re seen. POSTERIOR FOSSA: The cerebellum and brainstem are intact. The 4th ventricle is midline. The cerebellopontine angle i s unremarkable. EXTRACRANIAL: The visualized portion of the orbits is intact. SKULL: The calvaria is intact. No evidence of skull fracture. CONCLUSION: 1. Nonspecific white matter changes. 2. No acute intracranial abnormality. Lan Hurst MD on February 17, 2017 at 9:06 Board Certified Radiologist. This report was verified electronically.
--- NOTE | 2017-02-17 09:58 | RADRPT ---
EXAM DATE/TIME: 02/17/2017 09:34 [facility] COMPARISON: No previous studies available for comparison. INDICATIONS : Fall, left hip pain. ORAL CONTRAST: No oral contrast ingested. RADIATION DOSE: 18.05 CTDIvol (mGy) MEDICAL HISTORY : Carcinoma, prostate. Carcinoma, testicular. SURGICAL HISTORY : None. ENCOUNTER: Initial ACUITY: 1 day PAIN SCALE: 10/10 LOCATION: Left pelvis TECHNIQUE: Volumetric scanning of the pelvis was performed. Using automated exposure control and adjustment of the mA and/or kV according to patient size, radiation dose was kept as low as reasonably achievable t o obtain optimal diagnostic quality images. DICOM format image data is available electronically for review and comparison. FINDINGS: BOWEL/MESENTERY: The visualized small and large bowel demonstrate no acute abnormality. There is no free fluid. BLADDER: There is no air in the urinary bladder. There is wall thickening on the left measuring up to 2.2 cm.. RETROPERITONEUM: There is prominent retroperitoneal adenopathy along the left iliac vasculature measuring 1.6 x 1.9 cm . Prominent adenopathy along the pelvic sidewalls on the left measures 3.6 x 2.1 cm and on the right measures 2.4 x 1.7 cm.. REPRODUCTIVE: Within normal limits. INGUINAL: There is right inguinal adenopathy measuring 3.4 x 2.0 cm.. MUSCULOSKELETAL: Diffuse sclerotic metastasis throughout the lumbar spine and pelvis, as well as the right proximal fe mur. There are fractures of the right superior and inferior pubic rami. Minimal incomplete fractures of the left superior and inferior pubic rami.. CONCLUSION: 1. Fractures of the right superior and inferior pubic rami. 2. Incomplete fractures of the left acetabulum and inferior pubic rami. 3. Diffuse blastic metastatic disease with suspected bladder carcinoma as the source of etiology. 4. Wall thickening of the left urinary bladder measuring 2.3 cm. 5. Retroperitoneal and pelvic adenopathy as well as right inguinal adenopathy likely metastatic. Lan Hurst MD on February 17, 2017 at 9:52 Board Certified Radiologist. This report was verified electronically.
--- NOTE | 2017-02-17 12:52 | HHI.HP ---
[facility] Service [facility] Primary Care Physician Regine Steen MD (Vipin) Admission Diagnosis multiple rami fractures, incomplete left acetabular fracture, fall Diagnoses: Chief Complaint: fall Travel History International Travel<30 Days: No Contact w/Intl Traveler <30 Da: No Traveled to Known Affected Are: No History of Present Illness 57-year-old white male being admitted for rami fractures and acetabular fracture. Is a difficult historian when describing his prostate cancer history. Patient was in his usual state of health until sometime earlier this morning when he misplaced his footing, was too tired to catch himself and and fell as he was trying to get into his bed. He reports being somewhat drowsy due to his oncology medication injection. Upon falling he felt substantial pain, called the ambulance. He denies having any lightheadedness or loss of consciousness preceding during or after the fall. Denies any chest pain or shortness of breath. Reports having intact sensation in both feet but does have neuropathic pain. Says that his left hip hurts the most, mild pain on the right . Was just discharged from [facility] from a hospitalization requiring bladder irrigation for hematuria causing urethral blood clots - this was suspected to be due to his prostate cancer. Pt says he is unaware of any knowledge indicating any possible metastatic disease. Says he sees Dr. Sepulveda. Was discharged on Cipro for 7 day course, is currently on day 4. Says his dysuria has resolved. Pt reports being unable to void since his fall and yet has the urge to do so. 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 Scott Left testicle removal with prosthetic testicle insertion in 1986 at [facility] Reported Medications Reported Meds & Active Scripts Active Cipro (Ciprofloxacin HCl) 500 Mg Tab 500 Mg PO BID Lisinopril 40 Mg Tab 40 Mg PO BID Lantus Solostar Pen Inj (Insulin Glargine) 300 Unit/3 Ml Pen 48 Units SQ HS Aspirin EC (Aspirin) 81 Mg Tabdr 81 Mg PO DAILY Reported Gabapentin 300 Mg Cap 300 Mg PO BID Coreg (Carvedilol) 25 Mg Tab 25 Mg PO BID Flomax (Tamsulosin HCl) 0.4 Mg Cap 0.4 Mg PO HS Allergies: Coded Allergies: glyburide (Unverified Allergy, Severe, RASH, 02/13/17) amlodipine (Unverified Allergy, Unknown, 02/13/17) rhabdomyolysis atorvastatin (Unverified Allergy, Unknown, 02/13/17) rhabdomyolysis metformin (Unverified Allergy, Unknown, Rash, 02/13/17) pravastatin (Unverified Allergy, Unknown, 02/13/17) rhabdomyolysis simvastatin (Unverified Allergy, Unknown, 02/13/17) rhabdomyolysis Family History Hypertension. Father of pancreatic cancer. Social History no ETOH, THC, tobacco use. Physical Exam Vital Signs Vital Signs Date Time Temp Pulse Resp B/P Pulse Ox O2 Delivery O2 Flow Rate FiO2 02/17/17 11:58 18 02/17/17 08:16 18 02/17/17 07:49 99 Room Air 02/17/17 07:44 18 99 Room Air 02/17/17 07:44 97.7 73 18 192/97 100 Room Air 02/17/17 07:40 74 18 192/97 99 Physical Exam GENERAL: This is a well-nourished, well-developed patient, in mild-mod distress 2/2 pain SKIN: Warm and dry. EYES: Pupils equal and round. No scleral icterus. No injection or drainage. ENT: No nasal bleeding or discharge. Mucous membranes pink and moist. CARDIOVASCULAR: Regular rate and rhythm. no murmurs RESPIRATORY: No accessory muscle use. Clear to auscultation. Breath sounds equal bilaterally. GASTROINTESTINAL: Abdomen soft, non-tender, nondistended. Hepatic and splenic margins not palpable. MUSCULOSKELETAL: Extremities without clubbing, cyanosis, or edema. Has intact sensation and motor function of LLE, although with pain. Is able to roll on his sides with assistance. : rectal exam demonstrates unremarkable well-positioned prostate - clear to attempt urethral catheterization. NEUROLOGICAL: Awake and alert. No obvious cranial nerve deficits. No facial droop nor slurred speech noted. PSYCHIATRIC: Appropriate mood and affect; insight and judgment normal. Laboratory Laboratory Tests Test 02/17/17 07:58 White Blood Count 6.3 Red Blood Count 4.14 Hemoglobin 10.0 Hematocrit 29.8 Mean Corpuscular Volume 71.9 Mean Corpuscular Hemoglobin 24.2 Mean Corpuscular Hemoglobin 33.6 Concent Red Cell Distribution Width 18.5 Platelet Count 295 Mean Platelet Volume 7.8 Neutrophils (%) (Auto) 61.8 Lymphocytes (%) (Auto) 24.4 Monocytes (%) (Auto) 9.4 Eosinophils (%) (Auto) 3.1 Basophils (%) (Auto) 1.3 Neutrophils # (Auto) 3.9 Lymphocytes # (Auto) 1.5 Monocytes # (Auto) 0.6 Eosinophils # (Auto) 0.2 Basophils # (Auto) 0.1 CBC Comment DIFF FINAL Differential Comment Prothrombin Time 11.4 Prothromb Time International 1.0 Ratio Activated Partial 28.2 Thromboplast Time Sodium Level 139 Potassium Level 4.8 Chloride Level 107 Carbon Dioxide Level 23.4 Anion Gap 9 Blood Urea Nitrogen 29 Creatinine 1.68 Estimat Glomerular Filtration 42 Rate Random Glucose 174 Calcium Level 8.2 Total Bilirubin 0.4 Aspartate Amino Transf 31 (AST/SGOT) Alanine Aminotransferase 19 (ALT/SGPT) Alkaline Phosphatase 509 Total Protein 7.5 Albumin 2.3 Blood Type O POSITIVE Antibody Screen NEGATIVE Result Diagram: 02/17/17 0758 02/17/17 0758 Imaging Last 24 hours Impressions Radius/Ulna X-Ray 02/17/1742 Signed Impressions: Service Date/Time: Friday, February 17, 2017 08:27 - CONCLUSION: No acute fracture. Lan Hurst MD Pelvis X-Ray 02/17/1742 Signed Impressions: Service Date/Time: Friday, February 17, 2017 08:18 - CONCLUSION: 1. There appear to be fractures of the inferior pubic rami bilaterally and possibly the superior pubic ramus on the right. 2. Multiple sclerotic foci concerning for metastatic disease. Lan Hurst MD Femur X-Ray 02/17/17741 Signed Impressions: Service Date/Time: Friday, February 17, 2017 08:21 - CONCLUSION: 1. Intramedullary bone lesion, likely benign. 2. Sclerotic foci in the upper femur and left pelvis. 3. Inferior pubic ramus fracture the left. Lan Hurst MD Elbow X-Ray 02/17/17 0742 Signed Impressions: Service Date/Time: Friday, February 17, 2017 08:27 - CONCLUSION: Soft tissue swelling without fracture. Lan Hurst MD Chest X-Ray 02/17/17 0742 Signed Impressions: Service Date/Time: Friday, February 17, 2017 08:17 - CONCLUSION: 1. Cardiomegaly with slight interstitial prominence. 2. Multiple old left-sided rib fractures. Lan Hurst MD Pelvis CT 02/17/17 0000 Signed Impressions: Service Date/Time: Friday, February 17, 2017 09:34 - CONCLUSION: 1. Fractures of the right superior and inferior pubic rami. 2. Incomplete fractures of the left acetabulum and inferior pubic rami. 3. Diffuse blastic metastatic disease with suspected bladder carcinoma as the source of etiology. 4. Wall thickening of the left urinary bladder measuring 2.3 cm. 5. Retroperitoneal and pelvic adenopathy as well as right inguinal adenopathy likely metastatic. Lan Hurst MD Head CT 02/17/17 0000 Signed Impressions: Service Date/Time: Friday, February 17, 2017 08:37 - CONCLUSION: 1. Nonspecific white matter changes. 2. No acute intracranial abnormality. Lan Hurst MD Assessment and Plan Assessment and Plan Pelvic rami fractures ortho consulted, nonwb on left, WBAT on right, fall precautions, PT/ OT. Pain control, starting lovenox for dvt prophylaxis. lesions suspicious for mets; will touch base with heme/onc. urinary retention bladder scan and kumar cath placement if > 200 mL.. continue home flomax prostate cancer Microcytic anemia of acute on chronic disease H&H stable Serial H&H monitoring, transfuse for hemoglobin less than 8 UTI - finish Cipro course, 3 more days Diabetes type 2 Labile blood glucose Start medium sliding scale with fingerstick blood glucose monitoring basal insulin Hypertension Resume Coreg Physician Certification 2 Midnight Certification Type: Continued Stay Order for Inpatient Services The services are ordered in accordance with Medicare regulations or non- Medicare payer requirements, as applicable. In the case of services not specified as inpatient-only, they are appropriately provided as inpatient services in accordance with the 2-midnight benchmark. Estimated LOS (days): 2 2 days is the estimated time the patient will need to remain in the hospital, assuming treatment plan goals are met and no additional complications. Post-Hospital Plan: Home Health Kapil Eldridge MD Feb 17, 2017 12:52
[2017-02-17] MEDS ORDERED: NOVOINJ3 SQ (13:08)
[2017-02-17] MEDS: CARVEDILOL 12.5 MG TAB PO SCH ×2 (13:13→20:29)
[2017-02-17] MEDS: CIPROFLOXACIN 500 MG TAB PO SCH ×2 (13:13→20:28)
[2017-02-17] MEDS: LISINOPRIL 20 MG TAB PO SCH (13:14)
[2017-02-17] MEDS ORDERED: SODIUM CHLOR 0.9% 1000 ML INJ 1,000 ML IV ONE (13:30)
[2017-02-17 15:09] LABS: BLOOD, URINE MOD (NEG); GLUCOSE,URINE TRACE mg/dL (NEG); KETONE, URINE NEG (NEG); NITRITE,URINE NEG (NEG); PH, URINE 6.5 (5.0-8.5); URINE COLOR YELLOW (YELLW/STRAW)
[2017-02-17 15:12] LABS: COMMENT (UR) CATH-CULTURE IND; CULTURE IF INDICATED CATH CULTURE IND
[2017-02-17] MEDS: ENOXAPARIN SODIUM 30 MG/0.3 ML SYRINGE SQ SCH (16:05)
[2017-02-17] MEDS: POLYETHYLENE GLYCOL 17 GM PKG PO SCH (16:06)
[2017-02-17] MEDS: MORPHINE SULFATE 4 MG/ML INJ IV PUSH PRN ×2 (16:08→20:29)
[2017-02-17] MEDS ORDERED: GLUCAGON 1 MG/ML VIAL OTHER PRN (19:00)
[2017-02-17] MEDS ORDERED: DEXTROSE 50% IN WATER 50 ML VIAL(D50) IV PRN (19:00)
[2017-02-17] MEDS: INSULIN DETEMIR 100 UNITS/ML VIAL SQ SCH (20:27)
[2017-02-17] MEDS: INSULIN ASPART SUPPLEMENTAL SCALE SQ SCH (20:27)
[2017-02-17] MEDS: TAMSULOSIN HCL 0.4 MG CAP PO SCH (20:29)
[2017-02-18 00:03] VITALS: BP 124/74; PULSE 72; RESP 17; TEMP 97.7; O2SAT 98
[2017-02-18] MEDS: MORPHINE SULFATE 4 MG/ML INJ IV PUSH PRN ×3 (01:06→14:44)
[2017-02-18] MEDS: INSULIN ASPART SUPPLEMENTAL SCALE SQ SCH ×4 (07:00→20:43)
[2017-02-18 08:00] VITALS: BP 161/83; PULSE 68; RESP 18; TEMP 96.2; O2SAT 95
[2017-02-18] MEDS: CIPROFLOXACIN 500 MG TAB PO SCH ×2 (09:00→20:33)
[2017-02-18] MEDS: CARVEDILOL 12.5 MG TAB PO SCH ×2 (09:00→20:33)
[2017-02-18] MEDS: LISINOPRIL 20 MG TAB PO SCH (09:00)
[2017-02-18] MEDS: POLYETHYLENE GLYCOL 17 GM PKG PO SCH (09:00)
[2017-02-18 12:00] VITALS: BP 125/68; PULSE 75; RESP 19; TEMP 96.2; O2SAT 95
--- NOTE | 2017-02-18 13:54 | PD.CONS ---
cc: Escobar Bryant Jr., MD HPI Service [facility]opedic Surgeons Consult Requested By Primary Care Physician Regine Steen MD (Vipin) Admission Diagnosis multiple rami fractures, incomplete left acetabular fracture, fall Diagnoses: History of Present Illness 57-year-old male with previous history of metastatic prostate cancer present with right hip pain with inability to bear weight. Patient is a poor historian with scattered thoughts. He reports losing his footing and falling to the ground as he was trying out of bed. He has been feeling lightheaded and drowsy secondary to his oncology medication. He denies any chest pain or shortness of breath. Denies any paresthesia or numbness to the bilateral lower extremities. He is currently in bed and comfortable. X-ray taken the emergency department reveal displaced bilateral rami fractures as well as left acetabular fracture. Denies any head injuries. Denies loss of consciousness. Currently patient's pain is dull, 3 out of 10, exacerbated by any range of motion at the hips and weightbearing, relieved at rest and with IV pain medicine , pain is nonradiating, not associated with any paresthesia and numbness to the right lower extremity. He contreras report bilateral peripheral neuropathy at baseline. 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 Scott Left testicle removal with prosthetic testicle insertion in 1986 at [facility] Reported Medications Reported Meds & Active Scripts Active Cipro (Ciprofloxacin HCl) 500 Mg Tab 500 Mg PO BID Lisinopril 40 Mg Tab 40 Mg PO BID Lantus Solostar Pen Inj (Insulin Glargine) 300 Unit/3 Ml Pen 48 Units SQ HS Aspirin EC (Aspirin) 81 Mg Tabdr 81 Mg PO DAILY Reported Gabapentin 300 Mg Cap 300 Mg PO BID Coreg (Carvedilol) 25 Mg Tab 25 Mg PO BID Flomax (Tamsulosin HCl) 0.4 Mg Cap 0.4 Mg PO HS Allergies: Coded Allergies: glyburide (Unverified Allergy, Severe, RASH, 02/13/17) amlodipine (Unverified Allergy, Unknown, 02/13/17) rhabdomyolysis atorvastatin (Unverified Allergy, Unknown, 02/13/17) rhabdomyolysis metformin (Unverified Allergy, Unknown, Rash, 02/13/17) pravastatin (Unverified Allergy, Unknown, 02/13/17) rhabdomyolysis simvastatin (Unverified Allergy, Unknown, 02/13/17) rhabdomyolysis Family History Hypertension. Father of pancreatic cancer. Social History no ETOH, THC, tobacco use. Review of Systems Constitutional: DENIES: Diaphoretic episodes, Fatigue, Fever, Weight gain, Weight loss, Chills, Dizziness, Change in appetite, Night Sweats Endocrine: DENIES: Heat/cold intolerance, Polydipsia, Polyuria, Polyphagia Eyes: DENIES: Blurred vision, Diplopia, Eye inflammation, Eye pain, Vision loss , Photosensitivity, Double Vision Ears, nose, mouth, throat: DENIES: Tinnitus, Hearing loss, Vertigo, Nasal discharge, Oral lesions, Throat pain, Hoarseness, Ear Pain, Running Nose, Epistaxis, Sinus Pain, Toothache, Odynophagia Respiratory: DENIES: Apneas, Cough, Snoring, Wheezing, Hemoptysis, Sputum production, Shortness of breath Cardiovascular: DENIES: Chest pain, Palpitations, Syncope, Dyspnea on Exertion , PND, Lower Extremity Edema, Orthopnea, Claudication Past Family Social History Past Medical History 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 Scott Left testicle removal with prosthetic testicle insertion in 1986 at [facility] Allergies: Coded Allergies: glyburide (Unverified Allergy, Severe, RASH, 02/13/17) amlodipine (Unverified Allergy, Unknown, 02/13/17) rhabdomyolysis atorvastatin (Unverified Allergy, Unknown, 02/13/17) rhabdomyolysis metformin (Unverified Allergy, Unknown, Rash, 02/13/17) pravastatin (Unverified Allergy, Unknown, 02/13/17) rhabdomyolysis simvastatin (Unverified Allergy, Unknown, 02/13/17) rhabdomyolysis Active Ordered Medications Current Medications Medications (Trade) Dose Ordered Sig/Jerzy Route Start Time Stop Time Status Last Admin (NS Flush) 2 ml UNSCH PRN IVF 02/17/17 07:45 (Coreg) 25 mg BID PO 02/17/17 13:00 02/17/17 20:29 (Cipro) 500 mg BID PO 02/17/17 13:00 02/17/17 20:28 (Flomax) 0.4 mg HS PO 02/17/17 21:00 02/17/17 20:29 (Levemir Inj) 48 units HS SQ 02/17/17 21:00 02/17/17 20:27 (Prinivil) 40 mg DAILY PO 02/17/17 13:00 02/17/17 13:14 (Miralax) 17 gm DAILY PO 02/17/17 13:00 02/17/17 16:06 (Morphine Inj) 4 mg Q4HR PRN IV PUSH 02/17/17 12:00 02/18/17 01:06 (Lovenox Inj) 30 mg Q24H SQ 02/17/17 15:00 02/17/17 16:05 (D50w (Vial) Inj) 50 ml UNSCH PRN IV 02/17/17 19:00 (Glucagon Inj) 1 mg UNSCH PRN OTHER 02/17/17 19:00 (NovoLOG SUPPLEMENTAL SCALE) 1 ACHS SLIDING SCALE SQ 02/17/17 21:00 02/17/17 20:27 Reported Meds & Active Scripts Active Cipro (Ciprofloxacin HCl) 500 Mg Tab 500 Mg PO BID Lisinopril 40 Mg Tab 40 Mg PO BID Lantus Solostar Pen Inj (Insulin Glargine) 300 Unit/3 Ml Pen 48 Units SQ HS Aspirin EC (Aspirin) 81 Mg Tabdr 81 Mg PO DAILY Reported Novolog Flexpen Inj (Insulin Aspart) 300 Unit/3 Ml Pen SQ TIDAC PER SLIDING SCALE Gabapentin 300 Mg Cap 300 Mg PO BID Coreg (Carvedilol) 25 Mg Tab 25 Mg PO BID Flomax (Tamsulosin HCl) 0.4 Mg Cap 0.4 Mg PO HS Family History Hypertension. Father of pancreatic cancer. Social History no ETOH, THC, tobacco use. Physical Exam Vital Signs Vital Signs Date Time Temp Pulse Resp B/P (MAP) Pulse Ox O2 Delivery O2 Flow Rate FiO2 02/18/17 12:00 96.2 75 19 125/68 (87) 95 02/18/17 08:00 96.2 68 18 161/83 (109) 95 02/18/17 00:03 97.7 72 17 124/74 (91) 98 02/17/17 20:05 98.8 73 17 129/73 (91) 96 02/17/17 16:00 98.2 87 18 173/92 (119) 97 02/17/17 14:00 80 18 141/85 (103) 100 Room Air Physical Exam Alert awake and oriented x 3. No acute distress. Head: NC/AT Neck: No pain with any range of motion and neck. Trachea is midline. No tenderness to palpation along posterior cervical elements. Pulmonary: Normal respiratory effort. Bilateral upper extremity: No deformities Intact sensation distally in median, ulnar, and radial nerve. Intact motor in anterior interosseous, posterior interosseous, and ulnar nerve. 2+ radial artery pulses. Good cap refill. RIGHT lower extremity: No deformity, grossly Neurovascularly intact, +EHL/FHL. + PT/DP pulses. Stable hip exam. Painful range of motion and limited internal rotation. Tender to palpation anterior pelvic brim over the pubic ramus bilaterally. Supple compartments. Negative Homans sign. LEFT lower extremity: No deformity, stable left hip. Decreased overall range of motion left hip secondary to pain. + crepitus. Grossly Neurovascularly intact , +EHL/FHL. + PT/DP pulses. Supple compartments. Negative Homans sign. Laboratory Laboratory Tests Test 02/17/17 14:35 Urine Color YELLOW Urine Turbidity HAZY Urine pH 6.5 Urine Specific [place] 1.018 Urine Protein 300 Urine Glucose (UA) TRACE Urine Ketones NEG Urine Occult Blood MOD Urine Nitrite NEG Urine Bilirubin NEG Urine Urobilinogen LESS THAN 2.0 Urine Leukocyte Esterase LARGE Urine RBC Urine WBC 166 Microscopic Urinalysis Comment CATH-CULTURE IND Date/Time Source Procedure Growth Status 02/17/17 14:35 Urine Catheterized Urine Urine Culture - Preliminary Lyric Albicans Resulted Result Diagram: 02/17/17 0758 02/17/17 0758 Imaging Last 72 hours Impressions Radius/Ulna X-Ray 02/17/17 0742 Signed Impressions: Service Date/Time: Friday, February 17, 2017 08:27 - CONCLUSION: No acute fracture. Lan Hurst MD Pelvis X-Ray 02/17/17 0742 Signed Impressions: Service Date/Time: Friday, February 17, 2017 08:18 - CONCLUSION: 1. There appear to be fractures of the inferior pubic rami bilaterally and possibly the superior pubic ramus on the right. 2. Multiple sclerotic foci concerning for metastatic disease. Lan Hurst MD Femur X-Ray 02/17/17 0742 Signed Impressions: Service Date/Time: Friday, February 17, 2017 08:21 - CONCLUSION: 1. Intramedullary bone lesion, likely benign. 2. Sclerotic foci in the upper femur and left pelvis. 3. Inferior pubic ramus fracture the left. Lan Hurst MD Elbow X-Ray 02/17/17 0742 Signed Impressions: Service Date/Time: Friday, February 17, 2017 08:27 - CONCLUSION: Soft tissue swelling without fracture. Lan Hurst MD Chest X-Ray 02/17/17 0742 Signed Impressions: Service Date/Time: Friday, February 17, 2017 08:17 - CONCLUSION: 1. Cardiomegaly with slight interstitial prominence. 2. Multiple old left-sided rib fractures. Lan Hurst MD Pelvis CT 02/17/17 0000 Signed Impressions: Service Date/Time: Friday, February 17, 2017 09:34 - CONCLUSION: 1. Fractures of the right superior and inferior pubic rami. 2. Incomplete fractures of the left acetabulum and inferior pubic rami. 3. Diffuse blastic metastatic disease with suspected bladder carcinoma as the source of etiology. 4. Wall thickening of the left urinary bladder measuring 2.3 cm. 5. Retroperitoneal and pelvic adenopathy as well as right inguinal adenopathy likely metastatic. Lan Hurst MD Head CT 02/17/17 0000 Signed Impressions: Service Date/Time: Friday, February 17, 2017 08:37 - CONCLUSION: 1. Nonspecific white matter changes. 2. No acute intracranial abnormality. Lan Hurst MD Assessment & Plan Assessment and Plan 57-year-old male with history of metastatic bladder cancer presents after a fall with bilateral lower extremity hip pain. He is grossly neurovascularly intact. On exam he has painful range of motion bilaterally more on the left than the right. X-ray examination reveal nondisplaced acetabulum fracture on the left as well as bilateral rami fractures. X-rays also revealed significant blastic lesions about the pelvis and proximal femurs which are consistent with metastatic bladder cancer. His injuries are stable and will be treated nonoperatively. -Nonweightbearing left lower extremity -Weightbearing as tolerated right lower extremity. I discussed my treatment plans with the patient, as well as risks, benefits and alternatives of surgical Intervention versus nonoperative treatment. All questions were answered. Thanks for the consult, thanks for allowing me to participate in this patient's medical care. Escobar Bryant Jr., MD Feb 18, 2017 13:54
[2017-02-18] MEDS: ENOXAPARIN SODIUM 30 MG/0.3 ML SYRINGE SQ SCH (14:46)
[2017-02-18 16:00] VITALS: BP 134/79; PULSE 78; RESP 18; TEMP 96.3; O2SAT 95
--- NOTE | 2017-02-18 16:53 | HHI.PR ---
Subjective Remarks Patient says his pain is much better, he feels the Cipro is making a big difference, also feels like he is moving around more with the walker with the pain medications Objective Vital Signs Date Time Temp Pulse Resp B/P (MAP) Pulse Ox O2 Delivery O2 Flow Rate FiO2 02/18/17 12:00 96.2 75 19 125/68 (87) 95 02/18/17 08:00 96.2 68 18 161/83 (109) 95 02/18/17 00:03 97.7 72 17 124/74 (91) 98 02/17/17 20:05 98.8 73 17 129/73 (91) 96 I/O 02/17/17 02/17/17 02/17/17 02/18/17 02/18/17 02/18/17 06:59 14:59 22:59 06:59 14:59 22:59 Intake Total 240 ml 120 ml 300 ml Output Total 400 ml 300 ml 350 ml Balance -160 ml -180 ml -50 ml Intake Oral 240 ml 120 ml 300 ml Output Urine Total 400 ml 300 ml 350 ml Bladder Scan Volume Amount 0 ml # Bowel Movements 0 0 0 Result Diagram: 02/17/17 0758 02/17/17 0758 Imaging Last Impressions Radius/Ulna X-Ray 02/17/1742 Signed Impressions: Service Date/Time: Friday, February 17, 2017 08:27 - CONCLUSION: No acute fracture. Lan Hurst MD Pelvis X-Ray 02/17/17741 Signed Impressions: Service Date/Time: Friday, February 17, 2017 08:18 - CONCLUSION: 1. There appear to be fractures of the inferior pubic rami bilaterally and possibly the superior pubic ramus on the right. 2. Multiple sclerotic foci concerning for metastatic disease. Lan Hurst MD Femur X-Ray 02/17/17 0742 Signed Impressions: Service Date/Time: Friday, February 17, 2017 08:21 - CONCLUSION: 1. Intramedullary bone lesion, likely benign. 2. Sclerotic foci in the upper femur and left pelvis. 3. Inferior pubic ramus fracture the left. Lan Hurst MD Elbow X-Ray 02/17/1742 Signed Impressions: Service Date/Time: Friday, February 17, 2017 08:27 - CONCLUSION: Soft tissue swelling without fracture. Lan Hurst MD Chest X-Ray 02/17/17 0742 Signed Impressions: Service Date/Time: Friday, February 17, 2017 08:17 - CONCLUSION: 1. Cardiomegaly with slight interstitial prominence. 2. Multiple old left-sided rib fractures. Lan Hurst MD Pelvis CT 02/17/17 0000 Signed Impressions: Service Date/Time: Friday, February 17, 2017 09:34 - CONCLUSION: 1. Fractures of the right superior and inferior pubic rami. 2. Incomplete fractures of the left acetabulum and inferior pubic rami. 3. Diffuse blastic metastatic disease with suspected bladder carcinoma as the source of etiology. 4. Wall thickening of the left urinary bladder measuring 2.3 cm. 5. Retroperitoneal and pelvic adenopathy as well as right inguinal adenopathy likely metastatic. Lan Hurst MD Head CT 02/17/17 0000 Signed Impressions: Service Date/Time: Friday, February 17, 2017 08:37 - CONCLUSION: 1. Nonspecific white matter changes. 2. No acute intracranial abnormality. Lan Hurst MD Objective Remarks GENERAL: No acute distress CARDIOVASCULAR: Regular rate and rhythm without murmurs, gallops, or rubs. RESPIRATORY: Breath sounds equal and clear bilaterally. Unlabored breathing GASTROINTESTINAL: Abdomen soft, non-tender, nondistended. : Celaya in place A/P Assessment and Plan Pelvic rami fractures ortho consulted, nonwb on left, WBAT on right, fall precautions, PT/ OT. Pain control, lovenox for dvt prophylaxis. anticoagulant likely anticipated upon discharge lesions suspicious for mets. Transitioning to oral pain medications today prostate cancer - seeing urologist outpatient. Suspect metastatic disease within the spine, patient will likely need whole body bone scan outpatient. We' ll discuss with his urology group in a.m. urinary retention We'll discontinue Celaya and bladder scan as needed for distention or inability to void. continue home flomax Microcytic anemia of acute on chronic disease H&H stable Serial H&H monitoring, transfuse for hemoglobin less than 8 UTI - finish Cipro course, 2 more days Diabetes type 2 Labile blood glucose medium sliding scale with fingerstick blood glucose monitoring basal insulin Hypertension Coreg Maybe discharged home hopefully tomorrow if tolerating by mouth medicines well per PT recommendations with home health/family. Kapil Eldridge MD Feb 18, 2017 16:53
[2017-02-18 20:15] VITALS: BP 146/85; PULSE 72; RESP 17; TEMP 97.8; O2SAT 98
[2017-02-18] MEDS: ACETAMINOPHEN/HYDROcodone 325 MG/10 MG TAB PO PRN (20:33)
[2017-02-18] MEDS: TAMSULOSIN HCL 0.4 MG CAP PO SCH (20:33)
[2017-02-18] MEDS: SIMETHICONE 80 MG CHEWABLE TAB CHEW PRN (20:43)
[2017-02-18] MEDS: INSULIN DETEMIR 100 UNITS/ML VIAL SQ SCH (20:43)
[2017-02-19 00:10] VITALS: BP 157/91; PULSE 78; RESP 17; TEMP 97.3; O2SAT 96
[2017-02-19] MEDS: ACETAMINOPHEN/HYDROcodone 325 MG/10 MG TAB PO PRN ×4 (00:13→23:56)
[2017-02-19] MEDS: SIMETHICONE 80 MG CHEWABLE TAB CHEW PRN ×2 (02:58→15:38)
[2017-02-19] MEDS: INSULIN ASPART SUPPLEMENTAL SCALE SQ SCH ×4 (07:00→21:00)
[2017-02-19 08:00] VITALS: BP 161/77; PULSE 68; RESP 16; TEMP 96; O2SAT 96
[2017-02-19] MEDS: CARVEDILOL 12.5 MG TAB PO SCH ×2 (08:47→21:18)
[2017-02-19] MEDS: LISINOPRIL 20 MG TAB PO SCH (08:47)
[2017-02-19] MEDS: CIPROFLOXACIN 500 MG TAB PO SCH ×2 (08:47→21:18)
[2017-02-19] MEDS: POLYETHYLENE GLYCOL 17 GM PKG PO SCH (08:48)
[2017-02-19 12:00] VITALS: BP 136/86; PULSE 75; RESP 16; TEMP 96.8; O2SAT 99
[2017-02-19] MEDS ORDERED: WHEEMIS3 (13:24)
[2017-02-19] MEDS ORDERED: WALKER WHEELS/F1 MIS (13:24)
[2017-02-19] MEDS ORDERED: COMMODE 3-IN-11 MIS (13:24)
--- NOTE | 2017-02-19 14:38 | HHI.FF ---
Face to Face Verification Diagnosis: (1) Fracture of multiple pubic rami Physical Therapy Order: Evaluate and Treat Occupational Therapy Order: Evaluate and Treat I have seen patient Morris Bravo on 02/19/17. My clinical findings support the need for the requested home health care services because: Ltd mobility - disease progression Deconditioned w/ increased weakness Limited ability to care for self High risk of falls I certify that my clinical findings support that this patient is homebound because: Unsteady gait/balance Unsafe to leave home unassisted Kapil Eldridge MD Feb 19, 2017 14:38
[2017-02-19] MEDS ORDERED: HYDR-3583 PO (15:24)
[2017-02-19] MEDS ORDERED: CIPR-9 PO (15:24)
--- NOTE | 2017-02-19 15:26 | HHI.DCPOC ---
Discharge Care Plan Diagnosis: (1) Fracture of multiple pubic rami (2) Fall (3) Metastasis to bone (4) UTI (urinary tract infection) Goals to Promote Your Health * To prevent worsening of your condition and complications * To maintain your health at the optimal level You are to not bear any weight on her left leg, you may bear weight as tolerated on right leg. Follow-up with your urologist within 1 week for both your prostate cancer and your urinary difficulties. Directions to Meet Your Goals Take your medications as prescribed Follow your dietary instruction Follow activity as directed Keep your appointments as scheduled Take your immunizations and boosters as scheduled If your symptoms worsen call your PCP, if no PCP go to Urgent Care Center or Emergency Room Smoking is Dangerous to Your Health. Avoid second hand smoke Call the 24-hour hour crisis hotline for domestic abuse at Kapil Eldridge MD Feb 19, 2017 15:26
[2017-02-19] MEDS: ENOXAPARIN SODIUM 30 MG/0.3 ML SYRINGE SQ SCH (15:29)
[2017-02-19] MEDS ORDERED: PHEN-426 PO (15:30)
[2017-02-19 16:00] VITALS: BP 125/74; PULSE 80; RESP 16; TEMP 97.3; O2SAT 95
--- NOTE | 2017-02-19 19:39 | HHI.DS ---
Discharge Summary Admission Date Feb 17, 2017 at 10:21 Discharge Date: Feb 19, 2017 Admitting Diagnosis multiple rami fractures, incomplete left acetabular fracture, fall (1) Fracture of multiple pubic rami ICD Code: S32.599A - Other specified fracture of unspecified pubis, initial encounter for closed fracture Status: Acute (2) Left acetabular fracture ICD Code: S32.402A - Unspecified fracture of left acetabulum, initial encounter for closed fracture Status: Acute Procedures Bladder irrigation and Celaya placement, removal of Celaya Brief History - From Admission 57-year-old white male being admitted for rami fractures and acetabular fracture. Is a difficult historian when describing his prostate cancer history. Patient was in his usual state of health until sometime earlier this morning when he misplaced his footing, was too tired to catch himself and and fell as he was trying to get into his bed. He reports being somewhat drowsy due to his oncology medication injection. Upon falling he felt substantial pain, called the ambulance. He denies having any lightheadedness or loss of consciousness preceding during or after the fall. Denies any chest pain or shortness of breath. Reports having intact sensation in both feet but does have neuropathic pain. Says that his left hip hurts the most, mild pain on the right . Was just discharged from [place] from a hospitalization requiring bladder irrigation for hematuria causing urethral blood clots - this was suspected to be due to his prostate cancer. Pt says he is unaware of any knowledge indicating any possible metastatic disease. Says he sees Dr. Sepulveda. Was discharged on Cipro for 7 day course, is currently on day 4. Says his dysuria has resolved. Pt reports being unable to void since his fall and yet has the urge to do so. CBC/BMP: 02/17/17 0758 02/17/17 0758 Significant Findings Laboratory Tests Test 02/17/17 07:58 02/17/17 14:35 Red Blood Count 4.14 MIL/MM3 (4.50-5.90) Hemoglobin 10.0 GM/DL (13.0-17.0) Hematocrit 29.8 % (39.0-51.0) Mean Corpuscular Volume 71.9 FL (80.0-100.0) Mean Corpuscular Hemoglobin 24.2 PG (27.0-34.0) Red Cell Distribution Width 18.5 % (11.6-17.2) Monocytes (%) (Auto) 9.4 % (0.0-8.0) Blood Urea Nitrogen 29 MG/DL (7-18) Creatinine 1.68 MG/DL (0.60-1.30) Random Glucose 174 MG/DL (74-106) Albumin 2.3 GM/DL (3.4-5.0) Calcium Level 8.2 MG/DL (8.5-10.1) Alkaline Phosphatase 509 U/L (45-117) Estimat Glomerular Filtration Rate 42 ML/MIN (>89) Urine Turbidity HAZY (CLEAR) Urine Protein 300 mg/dL (NEG-TRACE) Urine Occult Blood MOD (NEG) Urine Leukocyte Esterase LARGE (NEG) Urine WBC 166 /hpf (0-5) PE at Discharge GENERAL: No acute distress, lying comfortably in bed GASTROINTESTINAL: Abdomen soft, non-tender, nondistended. MUSCULOSKELETAL: No cyanosis, or edema. Able to move bilateral lower extremities, pain noted on moving left L extremity, neurovascularly intact Hospital Course Patient was admitted to the floor, was started on fall precautions and IV pain control. He was continued on ciprofloxacin for a UTI that he had coming into the hospital which was diagnosed upon a very recent hospitalization at [facility]. The patient had issues with urinary retention, had undergone Celaya placement after bladder scan showed over 500 mL's of fluid. Patient was assessed by OT and PT and showed substantial improvement in mobility within 24 hours of admission, orthopedics was consulted and had managed for the patient to remain as nonweightbearing on the left and weightbearing as tolerated and the right. Patient will swapped over to oral pain medications and eventually succeeded with a voiding trial after removal of the Celaya. After extensive discussion with the patient, he was very insistent about going home with home health despite occupational therapy's recommendation for rehabilitation placement were as physical therapy recommended the patient could go home with home health and family. The patient was apparently also quite confused about metastasis of his prostate cancer and frankly did not understand that it had spread to his bones, I spoke with his urologist Dr. Sepulveda who did verify that he was well aware that his cancer was metastatic that he wanted the patient to follow-up with him after discharge. Patient has met maximum benefit from hospitalization and is clinically stable for discharge. Pt Condition on Discharge: Fair Discharge Disposition: Disch w/ Home Health Serv Discharge Time: > 30 minutes Discharge Instructions DIET: Follow Instructions for: As Tolerated, No Restrictions Activities you can perform: See Additionl Instruction Other Activity Instructions: Nonweightbearing on left leg, weightbearing as tolerated on right leg. Follow up Referrals: Orthopedics - 2 Weeks with Escobar Bryant Jr., MD Urology - 1 Week with Russell Sepulveda MD New Medications: Commode 3-in-1 (Commode 3-in-1) 1 Mis Mis EA .ROUTE DIRECTED, #1 0 Refills Phenazopyridine (Phenazopyridine) 100 Mg Tab 100 MG PO Q8H PRN for DYSURIA, #6 TAB 0 Refills Walker with Front Wheels (Walker with Front Wheels) 1 Mis Mis EA .ROUTE DIRECTED, #1 0 Refills Wheelchair (Wheelchair) 1 Mis Mis EA .ROUTE DIRECTED, #1 0 Refills Hydrocodone-Acetaminophen (Hydrocodone-Acetaminophen) 10-325 mg Tab 1 TAB PO Q6HR PRN for PAIN SCALE 5 TO 10, #120 TAB Continued Medications: Aspirin DR (Aspirin EC) 81 Mg Tabdr 81 MG PO DAILY for Prevent Blood Clot, #30 TAB Carvedilol (Coreg) 25 Mg Tab 25 MG PO BID, #60 TAB 0 Refills Ciprofloxacin (Cipro) 500 Mg Tab 500 MG PO BID for Infection, #2 TAB 0 Refills (This prescription has been renewed) Gabapentin (Gabapentin) 300 Mg Cap 300 MG PO BID, #60 CAP 0 Refills Insulin Aspart Inj (Novolog Flexpen Inj) 300 Unit/3 Ml Pen SQ TIDAC for Blood Sugar Management, #1 PEN 0 Refills PER SLIDING SCALE Insulin Glargine Inj (Lantus Solostar Pen Inj) 300 Unit/3 Ml Pen 48 UNITS SQ HS for Blood Sugar Management, #30 PEN 0 Refills Lisinopril (Lisinopril) 40 Mg Tab 40 MG PO BID for Blood Pressure Management, #60 TAB 0 Refills Tamsulosin (Flomax) 0.4 Mg Cap 0.4 MG PO HS for Manage Prostate Problems, #30 CAP 0 Refills Kapil Eldridge MD Feb 19, 2017 19:39
[2017-02-19 20:05] VITALS: BP 132/66; PULSE 76; RESP 17; TEMP 97.8; O2SAT 97
[2017-02-19] MEDS: TAMSULOSIN HCL 0.4 MG CAP PO SCH (21:18)
[2017-02-19] MEDS: INSULIN DETEMIR 100 UNITS/ML VIAL SQ SCH (21:19)
[2017-02-20 00:05] VITALS: BP 139/76; PULSE 74; RESP 17; TEMP 97.1; O2SAT 98
[2017-02-20] MEDS: ACETAMINOPHEN/HYDROcodone 325 MG/10 MG TAB PO PRN ×2 (03:52→08:23)
[2017-02-20] MEDS: INSULIN ASPART SUPPLEMENTAL SCALE SQ SCH (06:40)
[2017-02-20 08:00] VITALS: BP 108/58; PULSE 68; RESP 18; TEMP 96.2; O2SAT 98
[2017-02-20] MEDS: CARVEDILOL 12.5 MG TAB PO SCH (08:23)
[2017-02-20] MEDS: CIPROFLOXACIN 500 MG TAB PO SCH (08:23)
[2017-02-20] MEDS: LISINOPRIL 20 MG TAB PO SCH (08:23)
[2017-02-20] MEDS: POLYETHYLENE GLYCOL 17 GM PKG PO SCH (08:23)
== END 2017-02-20 11:07 | disposition home or self-care (01) | DRG 535 ==
LOC: NEPC 07:32 → NEDA 10:21 → N06B 15:29
PROVIDERS: ADMIT Hospitalist; ATTEND Hospitalist
DX: S32.592A Other specified fracture of left pubis, initial encounter for closed fracture (principal); S32.402A Unspecified fracture of left acetabulum, initial encounter for closed fracture; E11.42 Type 2 diabetes mellitus with diabetic polyneuropathy; I11.0 Hypertensive heart disease with heart failure; C79.51 Secondary malignant neoplasm of bone; I50.9 Heart failure, unspecified; C61 Malignant neoplasm of prostate; D63.8 Anemia in other chronic diseases classified elsewhere; N39.0 Urinary tract infection, site not specified; S32.591A Other specified fracture of right pubis, initial encounter for closed fracture; Z95.5 Presence of coronary angioplasty implant and graft; Z79.4 Long term (current) use of insulin; Z79.82 Long term (current) use of aspirin; W06.XXXA Fall from bed, initial encounter; Y92.003 Bedroom of unspecified non-institutional (private) residence as the place of occurrence of the external cause; I25.10 Atherosclerotic heart disease of native coronary artery without angina pectoris
CPT/HCPCS: 70450; 71010; 72170; 72192; 73080; 73090; 73552; 80053; 81001; 82948; 85025; 85610; 85730; 86850; 86900; 86901; 87086; 96374; 96375; J1650; J1815; J2270; J2405

== ENCOUNTER 2017-06-12 01:36 | Inpatient (IN) | payer OTHER, MEDICARE ==
[~2017-06-12] VITALS: Ht 193 cm; Wt 89.0 kg
[2017-06-12] VITALS (16 sets, daily range): BP systolic 129–200; BP diastolic 59–106; PULSE 50–86; RESP 16–22; TEMP 97.4–98.2; O2SAT 92–98
[~2017-06-12 01:36] MED LIST changes: -ASPI81TA11 PO; +ASPI81TA23 PO; +COMMODE 3-IN-11 MIS; +HYDR-3583 PO; +NOVOINJ3 SQ; +PHEN-525 PO; +WHEEMIS3
[2017-06-12 02:25] LABS: AUTOMATED NEUTROPHIL # 7.2 TH/MM3 (1.8-7.7); BASOPHIL % 0.5 % (0.0-2.0); EOSINOPHIL # 0.1 TH/MM3 (0-0.4); HEMATOCRIT 22.8 % (39.0-51.0); HEMO FLAGS DIFF FINAL; LYMPH % 11.8 % (9.0-44.0); LYMPHOCYTE # 1.1 TH/MM3 (1.0-4.8); MEAN CELL VOLUME 74.3 FL (80.0-100.0); MEAN CORPUSCULAR HEMOGLOBIN 23.2 PG (27.0-34.0); MEAN CORPUSCULAR HGB CONC 31.3 % (32.0-36.0); MONO % 6.3 % (0.0-8.0); NEUT % 80.4 % (16.0-70.0); PLATELET COUNT 392 TH/MM3 (150-450); RED BLOOD COUNT 3.07 MIL/MM3 (4.50-5.90); RED CELL DISTRIBUTION WIDTH 22.4 % (11.6-17.2)
[2017-06-12 02:45] LABS: ALT (GPT) 34 U/L (12-78); ANION GAP 13 MEQ/L (5-15); APTT (PATIENT) 27.3 SEC (24.3-30.1); AST (GOT) 31 U/L (15-37); BICARBONATE 14.6 MEQ/L (21.0-32.0); BLOOD UREA NITROGEN 90 MG/DL (7-18); CHLORIDE 112 MEQ/L (98-107); GLOMERULAR FILTRATION RATE 10 ML/MIN (>89); INTERNATIONAL NORMALIZED RATIO 1.4 RATIO; MAGNESIUM 2.1 MG/DL (1.5-2.5); POTASSIUM 5.1 MEQ/L (3.5-5.1); PROTHROMBIN TIME - PATIENT 13.9 SEC (9.8-11.6); SODIUM (NA) 140 MEQ/L (136-145)
[2017-06-12] MEDS ORDERED: SODIUM CHLOR 0.9% 250 ML INJ 250 ML IV ONE (02:45)
[2017-06-12 02:49] LABS: ALKALINE PHOSPHATASE 93 U/L (45-117); CREATINE KINASE 371 U/L (39-308); TOTAL BILIRUBIN ADULT 0.6 MG/DL (0.2-1.0)
[2017-06-12 03:01] LABS: CKMB 9.7 NG/ML (0.5-3.6)
[2017-06-12] MEDS ORDERED: MORPHINE SULFATE 8 MG/ML INJ IV PUSH ONE (03:15)
[2017-06-12] MEDS ORDERED: SODIUM CHLOR 0.9% 1000 ML INJ 1,000 ML IV ONE (03:15)
[2017-06-12] MEDS: SODIUM CHLORIDE 0.9% FLUSH 10 ML FLUSH IVF PRN ×2 (03:17→04:06)
--- NOTE | 2017-06-12 03:17 | PD ---
HPI Chief Complaint: Abdominal Pain Time Seen by Provider: 01:45 Travel History International Travel<30 days: No Contact w/Intl Traveler<30days: No Traveled to known affect area: No History of Present Illness HPI Patient is a 57-year-old male with a history of prostate and bladder cancer followed by Dr. Sepulveda presents emergency department for evaluation of generalized weakness and GI bleeding. Patient states she's been vomiting coffee -ground emesis intermittently for a few weeks, he went to his urologist Dr. Sepulveda a week ago and was told that he needed to have an ER evaluation blood transfusion for GI bleeding at that time. The patient states he had no ride up here until today, he presented by EMS for evaluation of epigastric pain. He states been several hours since she's had any emesis. His current complaint is that he has to go to the bathroom over and over again and wants a Celaya catheter placed. Denies any chest pain, endorses mild shortness of breath, denies any fevers. Not currently on chemotherapy. PFSH Past Medical History Autoimmune Disease: No Anxiety: No Depression: No Cancer: Yes (EMBRYONOCEL 20YRS AGO) Cardiac Catheterization: Yes Cardiovascular Problems: Yes High Cholesterol: Yes Chemotherapy: No Congestive Heart Failure: Yes Diabetes: Yes (TYPE 2) Patient Takes Glucophage: No Diminished Hearing: No Endocrine: Yes Genitourinary: Yes Hypertension: Yes Immune Disorder: No Implanted Vascular Access Dvce: Yes Musculoskeletal: Yes Neurologic: Yes (diabetic neuroopathy left foot) Psychiatric: No Reproductive: No Respiratory: No Radiation Therapy: No Thyroid Disease: No Past Surgical History Abdominal Surgery: No AICD: No Arteriovenous Shunt: No Body Medical Devices: cardiac stent Cardiac Surgery: Yes (cardiac stent) Coronary Stent: Yes (TIMES ONE - DR LOCKE) Ear Surgery: No Endocrine Surgery: No Eye Surgery: No Genitourinary Surgery: No Gynecologic Surgery: No Insulin Pump: No Joint Replacement: No Oral Surgery: No Pacemaker: No Thoracic Surgery: No Other Surgery: Yes (TESTICULAR SX DUE TO CA) Social History Alcohol Use: No Tobacco Use: No Substance Use: No Allergies-Medications (Allergen,Severity, Reaction): Coded Allergies: glyburide (Verified Allergy, Severe, RASH, 06/12/17) amlodipine (Verified Allergy, Unknown, 06/12/17) rhabdomyolysis atorvastatin (Verified Allergy, Unknown, 06/12/17) rhabdomyolysis metformin (Verified Allergy, Unknown, Rash, 06/12/17) pravastatin (Verified Allergy, Unknown, 06/12/17) rhabdomyolysis simvastatin (Verified Allergy, Unknown, 06/12/17) rhabdomyolysis Reported Meds & Prescriptions Reported Meds & Active Scripts Active Phenazopyridine (Phenazopyridine HCl) 100 Mg Tab 100 Mg PO Q8H PRN Hydrocodone-Acetaminophen 10-325 mg Tab 1 Tab PO Q6HR PRN Cipro (Ciprofloxacin HCl) 500 Mg Tab 500 Mg PO BID Commode 3-in-1 (Device) 1 Mis Mis Ea .ROUTE DIRECTED Walker with Front Wheels (Device) 1 Mis Mis Ea .ROUTE DIRECTED Wheelchair (Device) 1 Mis Mis Ea .ROUTE DIRECTED Lisinopril 40 Mg Tab 40 Mg PO BID Lantus Solostar Pen Inj (Insulin Glargine) 300 Unit/3 Ml Pen 48 Units SQ HS Aspirin EC (Aspirin) 81 Mg Tabdr 81 Mg PO DAILY Reported Novolog Flexpen Inj (Insulin Aspart) 300 Unit/3 Ml Pen SQ TIDAC PER SLIDING SCALE Gabapentin 300 Mg Cap 300 Mg PO BID Coreg (Carvedilol) 25 Mg Tab 25 Mg PO BID Flomax (Tamsulosin HCl) 0.4 Mg Cap 0.4 Mg PO HS Review of Systems Except as stated in HPI: all other systems reviewed are Neg Physical Exam Narrative GENERAL: Well-developed well-nourished, very pale, tachypneic. SKIN: Focused skin assessment warm/dry. HEAD: Atraumatic. Normocephalic. EYES: Pupils equal and round. No scleral icterus. No injection or drainage. ENT: No nasal bleeding or discharge. Mucous membranes pink and moist. NECK: Trachea midline. No JVD. CARDIOVASCULAR: Regular rate and rhythm. No murmur appreciated. RESPIRATORY: Tachypneic, clear to auscultation. GASTROINTESTINAL: Abdomen soft, non-tender, nondistended. Hepatic and splenic margins not palpable. MUSCULOSKELETAL: No obvious deformities. No clubbing. No cyanosis. No edema. NEUROLOGICAL: Awake and alert. No obvious cranial nerve deficits. Motor grossly within normal limits. Normal speech. PSYCHIATRIC: Appropriate mood and affect; insight and judgment normal. Data Data Last Documented VS Vital Signs Date Time Temp Pulse Resp B/P (MAP) Pulse Ox O2 Delivery O2 Flow Rate FiO2 06/12/17 01:53 95 Nasal Cannula 2.00 06/12/17 01:38 97.4 86 22 194/104 (134) Orders Orders Electrocardiogram (06/12/17 01:45) Ckmb (Isoenzyme) Profile (06/12/17 01:45) Complete Blood Count With Diff (06/12/17 01:45) Comprehensive Metabolic Panel (06/12/17 01:45) Magnesium (Mg) (06/12/17 01:45) Prothrombin Time / Inr (Pt) (06/12/17 01:45) Act Partial Throm Time (Ptt) (06/12/17 01:45) Troponin I (06/12/17 01:45) Lipase (06/12/17 01:45) Ecg Monitoring (06/12/17 01:45) Iv Access Insert/Monitor (06/12/17 01:45) Oximetry (06/12/17 01:45) Oxygen Administration (06/12/17 01:45) Sodium Chloride 0.9% Flush (Ns Flush) (06/12/17 01:45) Urinary Catheter Management CARMEN.Q8H (06/12/17 02:26) Activity Bed Rest (06/12/17 02:26) Type And Screen (06/12/17 02:26) Blood Product Administration (06/12/17 02:32) Sodium Chlor 0.9% 250 Ml Inj (Ns 250 Ml (06/12/17 02:45) Urinalysis - C+S If Indicated (06/12/17 02:33) Red Blood Cells (Rbc) (06/12/17 02:35) CKMB (06/12/17 02:17) CKMB% (06/12/17 02:17) Sodium Chlor 0.9% 1000 Ml Inj (Ns 1000 M (06/12/17 03:15) Morphine Inj (Morphine Inj) (06/12/17 03:15) Chest, Single Ap (06/12/17 ) Ct Abd/Pel W/O Iv Contrast (06/12/17 ) Admit Order (Ed Use Only) (06/12/17 ) Labs Laboratory Tests Test 06/12/17 02:17 06/12/17 02:55 White Blood Count 9.0 TH/MM3 Red Blood Count 3.07 MIL/MM3 Hemoglobin 7.1 GM/DL Hematocrit 22.8 % Mean Corpuscular Volume 74.3 FL Mean Corpuscular Hemoglobin 23.2 PG Mean Corpuscular Hemoglobin Concent 31.3 % Red Cell Distribution Width 22.4 % Platelet Count 392 TH/MM3 Mean Platelet Volume 7.5 FL Neutrophils (%) (Auto) 80.4 % Lymphocytes (%) (Auto) 11.8 % Monocytes (%) (Auto) 6.3 % Eosinophils (%) (Auto) 1.0 % Basophils (%) (Auto) 0.5 % Neutrophils # (Auto) 7.2 TH/MM3 Lymphocytes # (Auto) 1.1 TH/MM3 Monocytes # (Auto) 0.6 TH/MM3 Eosinophils # (Auto) 0.1 TH/MM3 Basophils # (Auto) 0.0 TH/MM3 CBC Comment DIFF FINAL Differential Comment Prothrombin Time 13.9 SEC Prothromb Time International Ratio 1.4 RATIO Activated Partial Thromboplast Time 27.3 SEC Blood Urea Nitrogen 90 MG/DL Creatinine 6.04 MG/DL Random Glucose 147 MG/DL Total Protein 8.1 GM/DL Albumin 3.0 GM/DL Calcium Level 8.2 MG/DL Magnesium Level 2.1 MG/DL Alkaline Phosphatase 93 U/L Aspartate Amino Transf (AST/SGOT) 31 U/L Alanine Aminotransferase (ALT/SGPT) 34 U/L Total Bilirubin 0.6 MG/DL Sodium Level 140 MEQ/L Potassium Level 5.1 MEQ/L Chloride Level 112 MEQ/L Carbon Dioxide Level 14.6 MEQ/L Anion Gap 13 MEQ/L Estimat Glomerular Filtration Rate 10 ML/MIN Total Creatine Kinase 371 U/L Creatine Kinase MB 9.7 NG/ML Creatine Kinase MB % 2.6 % Troponin I 0.07 NG/ML Lipase 234 U/L Urine Color LIGHT-YELLOW Urine Turbidity HAZY Urine pH 5.5 Urine Specific Capac 1.009 Urine Protein 100 mg/dL Urine Glucose (UA) TRACE mg/dL Urine Ketones NEG mg/dL Urine Occult Blood MOD Urine Nitrite NEG Urine Bilirubin NEG Urine Urobilinogen LESS THAN 2.0 MG/DL Urine Leukocyte Esterase LARGE Urine RBC 21 /hpf Urine WBC /hpf Urine WBC Clumps MOD Urine Renal Epithelial Cells <1 /hpf Urine Bacteria RARE /hpf Urine Mucus FEW /lpf Microscopic Urinalysis Comment CATH-CULTURE IND MDM Medical Decision Making Medical Screen Exam Complete: Yes Emergency Medical Condition: Yes Differential Diagnosis GI bleeding, anemia, electrolyte abnormality, acute kidney injury. Narrative Course Patient roomed emergency department, review of his records shows he had a CAT scan of his abdomen in January of this year showing bladder cancer with multiple lytic lesions in his pelvic bones. He also had multiple presumed metastatic lymph nodes in his low pelvis. In March he had PET scan showing widespread metastatic lesions. Patient found to be significantly anemic on arrival to the emergency department today with hemoglobin 7.1, blood pressure is actually hypertensive, was given a liter of normal saline +2 units PRBCs ordered in the ER, patient certainly is a fall risk given his level of anemia and would prefer him to be on bed rest, he states he doesn't think he can fully void his bladder and so a Celaya catheter was placed. Initially yield was only about 250 cc of urine as a post void residual. The patient also has significant acute kidney injury with a creatinine of 6 a BUN 90, potassium minimally elevated to 5.1, no changes on EKG for hyperkalemia. These laboratory changes appear to be new since his last labs here in January when his creatinine was ranging between 1.6 and 2. At this time the patient did request pain medication after Celaya catheter was inserted and morphine was ordered, highly recommended to him to be admitted to the hospital and he is agreeable. Patient was discussed with Dr. Honeycutt for admission and she is agreeable. She denies having discussed the possibility for helical imaging of this patient and opted for noncontrast CT of the abdomen and pelvis at this time. Order was placed by me, Dr. Honeycutt to follow-up results. Critical Care Narrative Aggregate critical care time was 35 minutes. Time to perform other separately billable procedures was not included in the critical care time. My time did not include minutes spent treating any other patients simultaneously or on activities that did not directly contribute to the patient's treatment. The services I provided to this patient were to treat and/or prevent clinically significant deterioration that could result in: , disability, organ failure I provided critical care services requiring my management, as noted below: Chart data review, documentation time, medication orders and management, vital sign assessments/reviewing monitor data, ordering and reviewing lab tests, ordering and interpreting/reviewing x-rays and diagnostic studies, care of the patient and discussion of the patient with the admitting physicians. Diagnosis Primary Impression: Acute kidney failure Qualified Codes: N17.9 - Acute kidney failure, unspecified Additional Impressions: Anemia Qualified Codes: D64.9 - Anemia, unspecified GI bleed Qualified Codes: K92.2 - Gastrointestinal hemorrhage, unspecified Admitting Information Admitting Physician Requests: Admit Condition: Bridger Aguirre MD Jun 12, 2017 03:17
[2017-06-12 03:20] LABS: BACTERIA, URINE RARE /hpf; BLOOD, URINE MOD (NEG); GLUCOSE,URINE TRACE mg/dL (NEG); KETONE, URINE NEG (NEG); MUCUS URINE FEW /lpf (OCC); NITRITE,URINE NEG (NEG); PH, URINE 5.5 (5.0-8.5); RENAL EPITHELIAL CELLS <1 /hpf; URINE COLOR LIGHT-YELLOW (YELLW/STRAW)
[2017-06-12 03:28] LABS: COMMENT (UR) CATH-CULTURE IND; CULTURE IF INDICATED CATH CULTURE IND
--- NOTE | 2017-06-12 04:18 | RADRPT ---
EXAM DATE/TIME: 06/12/2017 03:40 [facility] COMPARISON: CHEST SINGLE AP, February 17, 2017, 8:17. INDICATIONS : Short of breath. MEDICAL HISTORY : Carcinoma, gastric. Carcinoma, prostatic. SURGICAL HISTORY : None. ENCOUNTER: Initial ACUITY: 1 day PAIN SCORE: 10/10 LOCATION: Bilateral chest FINDINGS: Patchy non-consolidative infiltrates in the infrahilar region on the right side. Partially consolida tive infiltrates in the left lower lung with air bronchograms and loss of delineation of the left hem idiaphragm. The upper lungs are clear. Multiple healed bilateral rib fractures. The heart is valentin l in size for AP technique. CONCLUSION: 1. Bilateral lower lobe infiltrates, left greater than right with consolidation on the left and patch y infiltrates on the right. Werner Estevez MD on June 12, 2017 at 4:15 Board Certified Radiologist. This report was verified electronically.
--- NOTE | 2017-06-12 04:29 | RADRPT ---
EXAM DATE/TIME: 06/12/2017 03:57 [place] COMPARISON: No previous studies available for comparison. INDICATIONS : Abdomen pain. ORAL CONTRAST: No oral contrast ingested. RADIATION DOSE: 13.31 CTDIvol (mGy) MEDICAL HISTORY : Carcinoma, prostate. Cardiovascular disease Hypertension. SURGICAL HISTORY : None. ENCOUNTER: Initial ACUITY: 1 day PAIN SCALE: 5/10 LOCATION: Bilateral abdomen TECHNIQUE: Volumetric scanning of the abdomen and pelvis was performed. Using automated exposure control and ad justment of the mA and/or kV according to patient size, radiation dose was kept as low as reasonably achievable to obtain optimal diagnostic quality images. DICOM format image data is available electro nically for review and comparison. FINDINGS: LOWER LUNGS: Small bilateral pleural effusions measuring 3 cm on the right and 2 cm on the left. Some patchy area s of consolidation medial lower lungs bilaterally with air bronchograms. LIVER: Homogeneous density without lesion or noncontrast technique. There is no dilation of the biliary elza e. No calcified gallstones. SPLEEN: Normal size without lesion. PANCREAS: Within normal limits. KIDNEYS: There is severe bilateral hydronephrosis and severe bilateral hydroureter down to the ureterovesical junction with the ureters measuring up to 2 cm in diameter. No calcified stones seen. ADRENAL GLANDS: There is asymmetric enlargement of the left adrenal gland with maintenance of a adreniform shape and uniform low density (-8 Hounsfield units). The right adrenal gland is normal in configuration. VASCULAR: There is no aortic aneurysm. BOWEL/MESENTERY: No dilated loops of small or large bowel. No evidence of mesenteric adenopathy. ABDOMINAL WALL: Within normal limits. RETROPERITONEUM: Numerous mildly prominent upper abdominal para-aortic lymph nodes measure up to 1.3 cm. Enlarged lef t iliac node measures 1.3 cm. There are several enlarged deep left pelvic lymph nodes measuring up t o 2.1 cm. BLADDER: Celaya catheter is present within the lumen of the bladder. There appears to be diffuse concentric th ickening of the bladder wall measuring up to 2.8 cm. The dilated ureter is extend to the ureterovesi zena junction and the right ureter appears to partially course through the thickened bladder wall REPRODUCTIVE: Within normal limits. INGUINAL: Right inguinal adenopathy with nodes measuring up to 1.6 cm. MUSCULOSKELETAL: Multifocal osteoblastic lesions in the pelvis, proximal right femur, multiple vertebral bodies and mu ltiple ribs. There is a pathologic fracture about the right symphysis pubic and superior pubic ramus . Thin serpiginous lucency through the sclerotic posterior column of the right acetabulum suggests a nondisplaced pathologic fracture. CONCLUSION: 1. Bilateral obstructive uropathy with point of obstruction at ureterovesical junction with associate d diffuse concentric thickening of the wall of the urinary bladder. Severe bilateral hydronephrosis and hydroureter. There is a history of prostate cancer. 2. Retroperitoneal, the pelvic, and inguinal adenopathy. 3. Multifocal blastic metastatic disease. Pathologic fractures of the right pubic bone and possible pathologic fracture of the posterior column of the right acetabulum. Werner Estevez MD on June 12, 2017 at 4:20 Board Certified Radiologist. This report was verified electronically.
[2017-06-12] MEDS ORDERED: DEXTROSE 50% IN WATER 50 ML VIAL(D50) IV PUSH PRN (05:30)
[2017-06-12] MEDS ORDERED: GLUCAGON 1 MG/ML VIAL OTHER PRN (05:30)
[2017-06-12] MEDS ORDERED: RESP: ALBUTEROL 2.5 MG/IPRATROPIUM 0.5 MG NEB (PRN) NEB (05:45)
[2017-06-12] MEDS ORDERED: PANTOPRAZOLE INJ 80 MG in SODIUM CHLORIDE 0.9% INJ 35 ML IV ONE (05:52)
[2017-06-12] MEDS: HYDROmorphone HCL PF 2 MG/ML VIAL IV PUSH PRN ×4 (05:57→23:23)
[2017-06-12] MEDS ORDERED: cloNIDine HCL 0.1 MG TAB PO PRN (06:00)
[2017-06-12] MEDS: AZITHROMYCIN INJ 500 MG in SODIUM CHLOR 0.9% 250 ML INJ 250 ML IV SCH (06:12)
--- NOTE | 2017-06-12 06:39 | HHI.HP ---
HPI Service [facility] Hospitalists Primary Care Physician Unknown Admission Diagnosis Severe anemia, Acute Kidney Failure, GI bleed Diagnoses: Travel History International Travel<30 Days: No Contact w/Intl Traveler <30 Da: No Traveled to Known Affected Are: No History of Present Illness 57-year-old male with prostate adenocarcinoma diagnosed in July 2016 with known metastatic disease, hypertension, insulin-dependent diabetes mellitus and CAD presents with a 2 week of severe abdominal pain with associated nausea/ vomiting. The patient also endorses increasing fatigue and shortness of breath. His urologist, Dr. Sepulveda, ordered lab work for him approximately 2 weeks ago and the patient was found to have severe anemia. He was instructed to come to [place] for a blood transfusion however was unable to do so until tonight secondary to transportation issues. The patient also reports a history of hematemesis for 5 days approximately 5 days ago. He has intermittent hematuria. The patient was seen by oncology, Dr. Cummings, on 04/03 who recommended a PET scan with possible biopsy of the bladder mass. There was also discussion of initiation of chemotherapy. The patient was lost to follow-up because he had no transportation and states that he has received all of his medical care at [facility]. On arrival to the emergency department the patient was found to be severely anemic with an H&H of 7.1/22.8. He was also in acute renal failure with BUN/creatinine 90/6.04. Creatinine was 1.68 in January of this year. Troponin was also elevated at 0.07. The patient is hypertensive, he reports he has been out of his blood pressure medication for at least a week. CT of the abdomen/pelvis shows bilateral obstructive uropathy with point of obstruction at the ureterovesical junction with diffuse concentric thickening of the wall of the urinary bladder. Severe bilateral hydronephrosis and hydroureter. Retroperitoneal, pelvic and inguinal adenopathy. Multifocal metastatic disease with pathologic fractures in the right pubic bone and possible pathologic fracture of the posterior column of the right acetabulum. Chest x-ray significant for bilateral lower lobe infiltrates left greater than right with consolidation on the left. Review of Systems Denies fever or chills Denies blurry vision, otorrhea, rhinorrhea Denies sore throat and cough No chest pain, palpitations, Positive shortness of breath Positive abdominal pain Denies constipation/diarrhea. 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 Hypertension CAD History of osteomyelitis left foot Past Surgical History Left foot surgery for osteomyelitis Cardiac catheterization with stent placement in 2006 Reported Medications Reported Meds & Active Scripts Active Phenazopyridine (Phenazopyridine HCl) 100 Mg Tab 100 Mg PO Q8H PRN Hydrocodone-Acetaminophen 10-325 mg Tab 1 Tab PO Q6HR PRN Commode 3-in-1 (Device) 1 Mis Mis Ea .ROUTE DIRECTED Walker with Front Wheels (Device) 1 Mis Mis Ea .ROUTE DIRECTED Wheelchair (Device) 1 Mis Mis Ea .ROUTE DIRECTED Lisinopril 40 Mg Tab 40 Mg PO BID Lantus Solostar Pen Inj (Insulin Glargine) 300 Unit/3 Ml Pen 48 Units SQ HS Aspirin EC (Aspirin) 81 Mg Tabdr 81 Mg PO DAILY Reported Novolog Flexpen Inj (Insulin Aspart) 300 Unit/3 Ml Pen SQ TIDAC PER SLIDING SCALE Gabapentin 300 Mg Cap 300 Mg PO BID Coreg (Carvedilol) 25 Mg Tab 25 Mg PO BID Flomax (Tamsulosin HCl) 0.4 Mg Cap 0.4 Mg PO HS Allergies: Coded Allergies: glyburide (Verified Allergy, Severe, RASH, 06/12/17) amlodipine (Verified Allergy, Unknown, 06/12/17) rhabdomyolysis atorvastatin (Verified Allergy, Unknown, 06/12/17) rhabdomyolysis metformin (Verified Allergy, Unknown, Rash, 06/12/17) pravastatin (Verified Allergy, Unknown, 06/12/17) rhabdomyolysis simvastatin (Verified Allergy, Unknown, 06/12/17) rhabdomyolysis Family History Father with diabetes mellitus Social History Denies alcohol, tobacco and illicit drugs Physical Exam Vital Signs Vital Signs Date Time Temp Pulse Resp B/P (MAP) Pulse Ox O2 Delivery O2 Flow Rate FiO2 06/12/17 04:51 98.1 75 16 193/100 97 06/12/17 04:36 98.0 80 18 194/102 94 06/12/17 04:21 98.2 78 18 190/106 94 06/12/17 04:06 98.0 82 20 173/97 93 06/12/17 01:53 95 Nasal Cannula 2.00 06/12/17 01:38 97.4 86 22 194/104 (134) 92 Physical Exam GENERAL: male lying in bed SKIN: No rashes, ecchymoses or lesions. Cool and dry. HEAD: Atraumatic. Normocephalic. No temporal or scalp tenderness. EYES: Pupils equal round and reactive. Extraocular motions intact. No scleral icterus. No injection or drainage. ENT: Nose without bleeding, purulent drainage or septal hematoma. Throat without erythema, tonsillar hypertrophy or exudate. Uvula midline. Airway patent. NECK: Trachea midline. No JVD or lymphadenopathy. Supple, nontender, no meningeal signs. CARDIOVASCULAR: Regular rate and rhythm without murmurs, gallops, or rubs. RESPIRATORY: Clear to auscultation. Breath sounds equal bilaterally. No wheezes , rales, or rhonchi. GASTROINTESTINAL: Abdomen soft, diffusely tender to palpation, nondistended. No hepato-splenomegaly, or palpable masses. No guarding. MUSCULOSKELETAL: 2+ pitting edema in the left lower extremity, baseline for the patient. No calf tenderness. NEUROLOGICAL: Awake and alert. Cranial nerves II through XII intact. Motor and sensory grossly within normal limits. Normal speech. Laboratory Laboratory Tests Test 06/12/17 02:17 06/12/17 02:55 White Blood Count 9.0 Red Blood Count 3.07 Hemoglobin 7.1 Hematocrit 22.8 Mean Corpuscular Volume 74.3 Mean Corpuscular Hemoglobin 23.2 Mean Corpuscular Hemoglobin Concent 31.3 Red Cell Distribution Width 22.4 Platelet Count 392 Mean Platelet Volume 7.5 Neutrophils (%) (Auto) 80.4 Lymphocytes (%) (Auto) 11.8 Monocytes (%) (Auto) 6.3 Eosinophils (%) (Auto) 1.0 Basophils (%) (Auto) 0.5 Neutrophils # (Auto) 7.2 Lymphocytes # (Auto) 1.1 Monocytes # (Auto) 0.6 Eosinophils # (Auto) 0.1 Basophils # (Auto) 0.0 CBC Comment DIFF FINAL Differential Comment Prothrombin Time 13.9 Prothromb Time International Ratio 1.4 Activated Partial Thromboplast Time 27.3 Blood Urea Nitrogen 90 Creatinine 6.04 Random Glucose 147 Total Protein 8.1 Albumin 3.0 Calcium Level 8.2 Magnesium Level 2.1 Alkaline Phosphatase 93 Aspartate Amino Transf (AST/SGOT) 31 Alanine Aminotransferase (ALT/SGPT) 34 Total Bilirubin 0.6 Sodium Level 140 Potassium Level 5.1 Chloride Level 112 Carbon Dioxide Level 14.6 Anion Gap 13 Estimat Glomerular Filtration Rate 10 Total Creatine Kinase 371 Creatine Kinase MB 9.7 Creatine Kinase MB % 2.6 Troponin I 0.07 Lipase 234 Urine Color LIGHT-YELLOW Urine Turbidity HAZY Urine pH 5.5 Urine Specific [place] 1.009 Urine Protein 100 Urine Glucose (UA) TRACE Urine Ketones NEG Urine Occult Blood MOD Urine Nitrite NEG Urine Bilirubin NEG Urine Urobilinogen LESS THAN 2.0 Urine Leukocyte Esterase LARGE Urine RBC 21 Urine WBC Urine WBC Clumps MOD Urine Renal Epithelial Cells <1 Urine Bacteria RARE Urine Mucus FEW Microscopic Urinalysis Comment CATH-CULTURE IND Date/Time Source Procedure Growth Status 06/12/17 02:55 Urine Catheterized Urine Urine Culture Pending Received Result Diagram: 06/12/1721606/12/17216 Caprini VTE Risk Assessment Caprini VTE Risk Assessment: Mod/High Risk (score >= 2) Caprini Risk Assessment Model Point Value = 1 Point Value = 2 Point Value = 3 Point Value = 5 Age 41-60 Minor surgery BMI > 25 kg/m2 Swollen legs Varicose veins or History of unexplained or recurrent spontaneous Oral contraceptives or hormone replacement Sepsis (< 1 month) Serious lung disease, including pneumonia (< 1 month) Abnormal pulmonary function Acute myocardial infarction Congestive heart failure (< 1 month) History of inflammatory bowel disease Medical patient at bed rest Age 61-74 Arthroscopic surgery Major open surgery (> 45 min) Laparoscopic surgery (> 45 min) Malignancy Confined to bed (> 72 hours) Immobilizing plaster cast Central venous access Age >= 75 History of VTE Family history of VTE Factor V Leiden Prothrombin [id number] Lupus anticoagulant Anticardiolipin antibodies Elevated serum homocysteine Heparin-induced thrombocytopenia Other congenital or acquired thrombophilia Stroke (< 1 month) Elective arthroplasty Hip, pelvis, or leg fracture Acute spinal cord injury (< 1 month) Prophylaxis Regimen Total Risk Factor Score Risk Level Prophylaxis Regimen 0-1 Low Early ambulation 2 Moderate Order ONE of the following: *Sequential Compression Device (SCD) *Heparin 5000 units SQ BID 3-4 Higher Order ONE of the following medications: *Heparin 5000 units SQ TID *Enoxaparin/Lovenox 40 mg SQ daily (WT < 150 kg, CrCl > 30 mL/min) *Enoxaparin/Lovenox 30 mg SQ daily (WT < 150 kg, CrCl > 10-29 mL/min) *Enoxaparin/Lovenox 30 mg SQ BID (WT < 150 kg, CrCl > 30 mL/min) AND/OR *Sequential Compression Device (SCD) 5 or more Highest Order ONE of the following medications: *Heparin 5000 units SQ TID (Preferred with Epidurals) *Enoxaparin/Lovenox 40 mg SQ daily (WT < 150 kg, CrCl > 30 mL/min) *Enoxaparin/Lovenox 30 mg SQ daily (WT < 150 kg, CrCl > 10-29 mL/min) *Enoxaparin/Lovenox 30 mg SQ BID (WT < 150 kg, CrCl > 30 mL/min) AND *Sequential Compression Device (SCD) Assessment and Plan Assessment and Plan Assessment/plan: 1. Severe anemia/upper GI bleed H&H 7.1/22.8 Patient with history of hematemesis and hematuria Transfuse 2 units PRBCs Protonix drip Consult gastroenterology, appreciate assistance Monitor H&H 2. Acute renal failure BUN/creatinine 90/6.04 Secondary to obstructive uropathy with bilateral hydronephrosis Nephrology consulted, appreciate recommendations Potassium 5.1 Holding Lisinopril Avoid nephrotoxic agents Monitor renal function 3. Pneumonia CXR showed bilateral lower lobe infiltrates with consolidation on the left Rocephin/Azithromycin 4. Metastatic prostate cancer Patient with known prostate ca and accompanying metastatic disease, lost to follow up Oncology and urology consulted, appreciate recommendations Pain control with IV Dilaudid 5. Hypertension Continue home Coreg Clonidine prn 6. CAD/Elevated troponin s/p stent in 2006 Troponin 0.07, suspect secondary to renal failure Given patient's history, will trend serial troponins/EKGs FEN NPO NS at 100 cc/hr Electrolytes: monitor Holding pharmacologic anticoagulation for active GI bleed and severe anemia Case discussed with ER physician at length Physician Certification 2 Midnight Certification Type: Admission for Inpatient Services Order for Inpatient Services The services are ordered in accordance with Medicare regulations or non- Medicare payer requirements, as applicable. In the case of services not specified as inpatient-only, they are appropriately provided as inpatient services in accordance with the 2-midnight benchmark. Estimated LOS (days): 2 2 days is the estimated time the patient will need to remain in the hospital, assuming treatment plan goals are met and no additional complications. Post-Hospital Plan: Not yet determined Marianela Honeycutt MD Jun 12, 2017 06:39
[2017-06-12] MEDS: PANTOPRAZOLE INJ 80 MG in SODIUM CHLORIDE 0.9% INJ 100 ML IV SCH ×2 (07:20→18:03)
[2017-06-12 08:34] LABS: BICARBONATE 15.2 MEQ/L (21.0-32.0)
[2017-06-12 08:44] LABS: POTASSIUM 5.3 MEQ/L (3.5-5.1)
[2017-06-12] MEDS: SODIUM CHLORIDE 0.9% FLUSH 10 ML FLUSH IV FLUSH SCH ×2 (09:00→21:00)
[2017-06-12] MEDS: cefTRIAXone INJ 1,000 MG in SODIUM CHLORIDE 0.9% INJ 100 ML IV SCH (09:17)
[2017-06-12] MEDS: CARVEDILOL 12.5 MG TAB PO SCH ×2 (09:17→21:00)
[2017-06-12] MEDS: SODIUM CHLOR 0.9% 1000 ML INJ 1,000 ML IV SCH ×2 (09:21→17:00)
[2017-06-12] MEDS: INSULIN ASPART SUPPLEMENTAL SCALE SQ SCH ×4 (09:31→21:00)
[2017-06-12] MEDS: ONDANSETRON HCL 4 MG/2 ML VIAL IV PUSH PRN (10:33)
--- NOTE | 2017-06-12 10:47 | PD.CONS ---
HPI History of Present Illness This is a 57 year old male with significant hx of Prostate adenocarcinoma of the prostate. Patient's treatment has involved immunotherapy; patient has noted symptoms of intermittent hematuria. Currently, Patient notes symptoms for the past month related to nausea and vomiting which included some hematemesis for approximately 5 days before admission, and generalized weakness fatigue dizziness which have escalated over the past 2 weeks. Patient does note some mild to moderate abdominal distention with generalized abdominal pain. Patient received 1 unit of blood in the emergency room and another unit of blood in the intensive care, to total 2 since his admission. Hemoglobin hematocrit is pending, last hemoglobin noted 7.1. Currently patient is in extreme pain and is requesting pain management and no further questions. Most of the history is being gathered from the record. Patient's urologist ordered lab work approximately 2 weeks ago and found his severe anemia. Patient had transportation issues at home and was unable to come to the hospital to receive a blood transfusion. CT of the abdomen and pelvis shows obstructive uropathy, and multifocal metastatic disease. 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 Hypertension CAD History of osteomyelitis left foot Prostate adenocarcinoma July 2016 Past Surgical History Left foot surgery for osteomyelitis Cardiac catheterization with stent placement in 2006 Immunotherapy (Belem Rodriguez) Coded Allergies: glyburide (Verified Allergy, Severe, RASH, 06/12/17) amlodipine (Verified Allergy, Unknown, 06/12/17) rhabdomyolysis atorvastatin (Verified Allergy, Unknown, 06/12/17) rhabdomyolysis metformin (Verified Allergy, Unknown, Rash, 06/12/17) pravastatin (Verified Allergy, Unknown, 06/12/17) rhabdomyolysis simvastatin (Verified Allergy, Unknown, 06/12/17) rhabdomyolysis Medications Administered Medications Medications (Trade) Dose Ordered Sig/Jerzy Route PRN Reason Start Time Stop Time Status Last Admin Dose Admin Sodium Chloride 250 ml @ 15 mls/hr ONCE ONCE IV 06/12/17 02:45 06/12/17 19:24 06/12/17 04:06 Sodium Chloride (NS Flush) 2 ml BID IV FLUSH 06/12/17 09:00 06/12/17 09:00 Carvedilol (Coreg) 25 mg BID PO 06/12/17 09:00 06/12/17 09:17 Ceftriaxone Sodium 1000 mg/ Sodium Chloride 100 ml @ 200 mls/hr Q24H IV 06/12/17 08:00 06/12/17 09:17 Azithromycin 500 mg/Sodium Chloride 250 ml @ 250 mls/hr Q24H IV 06/12/17 06:00 06/12/17 06:12 Hydromorphone HCl (Dilaudid Pf Inj) 1 mg Q4H PRN IV PUSH pain > 4 06/12/17 05:45 06/12/17 05:57 Pantoprazole Sodium 80 mg/ Sodium Chloride 100 ml @ 10 mls/hr Q10H IV 06/12/17 06:54 06/12/17 07:20 Sodium Chloride 1,000 ml @ 100 mls/hr Q10H IV 06/12/17 07:00 06/12/17 09:21 Family History Father with diabetes mellitus Social History Denies alcohol, tobacco and illicit drugs (Belem Rodriguez) Review of Systems Constitutional: COMPLAINS OF: Fatigue, Chills, Dizziness Respiratory: COMPLAINS OF: Shortness of breath Gastrointestinal: COMPLAINS OF: Nausea, Vomiting Psychiatric: COMPLAINS OF: Anxiety (Belem Rodriguez) GI Exam Vitals I&O Vital Signs Date Time Temp Pulse Resp B/P (MAP) Pulse Ox O2 Delivery O2 Flow Rate FiO2 06/12/17 09:45 98.0 71 18 180/106 96 06/12/17 09:15 97.7 69 06/12/17 09:15 97.9 70 20 200/102 96 06/12/17 08:48 97.7 69 22 185/103 93 06/12/17 06:47 06/12/17 06:43 67 190/76 (114) 06/12/17 06:42 96 3.00 06/12/17 04:51 98.1 75 16 193/100 97 06/12/17 04:36 98.0 80 18 194/102 94 06/12/17 04:21 98.2 78 18 190/106 94 06/12/17 04:06 98.0 82 20 173/97 93 06/12/17 01:53 95 Nasal Cannula 2.00 06/12/17 01:38 97.4 86 22 194/104 (134) 92 I/O 06/11/17 06/11/17 06/11/17 06/12/17 06/12/17 06/12/17 07:00 15:00 23:00 07:00 15:00 23:00 Intake Total 1298 ml Balance 1298 ml Intake IV Total 1295 ml Blood Product IV Normal Saline Flush 3 ml Imaging Last Impressions Chest X-Ray 06/12/17 0000 Signed Impressions: Service Date/Time: Monday, June 12, 2017 03:40 - CONCLUSION: 1. Bilateral lower lobe infiltrates, left greater than right with consolidation on the left and patchy infiltrates on the right. Werner Estevez MD Abdomen/Pelvis CT 06/12/17 0000 Signed Impressions: Service Date/Time: Monday, June 12, 2017 03:57 - CONCLUSION: 1. Bilateral obstructive uropathy with point of obstruction at ureterovesical junction with associated diffuse concentric thickening of the wall of the urinary bladder. Severe bilateral hydronephrosis and hydroureter. There is a history of prostate cancer. 2. Retroperitoneal, the pelvic, and inguinal adenopathy. 3. Multifocal blastic metastatic disease. Pathologic fractures of the right pubic bone and possible pathologic fracture of the posterior column of the right acetabulum. Werner Estevez MD Laboratory Test 06/12/17 02:17 06/12/17 02:55 06/12/17 06:30 White Blood Count 9.0 TH/MM3 Red Blood Count 3.07 MIL/MM3 Hemoglobin 7.1 GM/DL Hematocrit 22.8 % Mean Corpuscular Volume 74.3 FL Mean Corpuscular Hemoglobin 23.2 PG Mean Corpuscular Hemoglobin Concent 31.3 % Red Cell Distribution Width 22.4 % Platelet Count 392 TH/MM3 Mean Platelet Volume 7.5 FL Neutrophils (%) (Auto) 80.4 % Lymphocytes (%) (Auto) 11.8 % Monocytes (%) (Auto) 6.3 % Eosinophils (%) (Auto) 1.0 % Basophils (%) (Auto) 0.5 % Neutrophils # (Auto) 7.2 TH/MM3 Lymphocytes # (Auto) 1.1 TH/MM3 Monocytes # (Auto) 0.6 TH/MM3 Eosinophils # (Auto) 0.1 TH/MM3 Basophils # (Auto) 0.0 TH/MM3 CBC Comment DIFF FINAL Differential Comment Prothrombin Time 13.9 SEC Prothromb Time International Ratio 1.4 RATIO Activated Partial Thromboplast Time 27.3 SEC Blood Urea Nitrogen 90 MG/DL 88 MG/DL Creatinine 6.04 MG/DL 5.89 MG/DL Random Glucose 147 MG/DL 127 MG/DL Total Protein 8.1 GM/DL Albumin 3.0 GM/DL Calcium Level 8.2 MG/DL 8.1 MG/DL Magnesium Level 2.1 MG/DL Alkaline Phosphatase 93 U/L Aspartate Amino Transf (AST/SGOT) 31 U/L Alanine Aminotransferase (ALT/SGPT) 34 U/L Total Bilirubin 0.6 MG/DL Sodium Level 140 MEQ/L 141 MEQ/L Potassium Level 5.1 MEQ/L 5.3 MEQ/L Chloride Level 112 MEQ/L 115 MEQ/L Carbon Dioxide Level 14.6 MEQ/L 15.2 MEQ/L Anion Gap 13 MEQ/L 11 MEQ/L Estimat Glomerular Filtration Rate 10 ML/MIN 10 ML/MIN Total Creatine Kinase 371 U/L Creatine Kinase MB 9.7 NG/ML Creatine Kinase MB % 2.6 % Troponin I 0.07 NG/ML Lipase 234 U/L Urine Color LIGHT-YELLOW Urine Turbidity HAZY Urine pH 5.5 Urine Specific [place] 1.009 Urine Protein 100 mg/dL Urine Glucose (UA) TRACE mg/dL Urine Ketones NEG mg/dL Urine Occult Blood MOD Urine Nitrite NEG Urine Bilirubin NEG Urine Urobilinogen LESS THAN 2.0 MG/DL Urine Leukocyte Esterase LARGE Urine RBC 21 /hpf Urine WBC /hpf Urine WBC Clumps MOD Urine Renal Epithelial Cells <1 /hpf Urine Bacteria RARE /hpf Urine Mucus FEW /lpf Microscopic Urinalysis Comment CATH-CULTURE IND Date/Time Source Procedure Growth Status 06/12/17 02:55 Urine Catheterized Urine Urine Culture Pending Received Physical Examination HEENT: Pupils round and reactive to light; normocephalic; atraumatic; no jaundice. Throat dry NECK: Neck is supple, no JVD, no lymphadenopathy. CHEST: Chest is clear to auscultation and percussion. CARDIAC: Regular rate and rhythm with no murmur gallop or rubs. ABDOMEN: Round, taut, moderate distention with generalized pain to light palpation , bowel sounds are present in all four quadrants. EXTREMITIES: No clubbing, cyanosis, or edema. SKIN: Pale no rash; no jaundice. TEXTILE EXAMINER: No focal deficits; alert and oriented times three. (Belem Rodriguez) Assessment and Plan Assessment: (1) GI bleed ICD Codes: K92.2 - Gastrointestinal hemorrhage, unspecified Status: Acute Plan GI bleed and anemia has been treated with transfusion of 2 units since hospital admission, no further vomiting since admission, patient denies any further hematemesis, continues with severe nausea and abdominal pain probable secondary to metastasis and urinary obstruction. Patient currently on IV antibiotics Rocephin and azithromycin. Currently patient is in extreme pain, unable to complete lower GI assessment. Will follow up after patient is stabilized from his pain management. No known diarrhea or constipation. Plan PPI IV drip Add Carafate before meals and at bedtime Monitor hemoglobin and hematocrit every 6hr Call GI for any active GI bleed or hemorrhage EGD when patient is stable, possible within the next 24 hours Patient request working with multiple physicians for plan of care, wants any testing discussed with his oncology team. (Belem Rodriguez) Physician Comments Patient seen and examined Agree with above Continue with current supportive care Monitor labs Patient does not feel he is able to proceed with a colonoscopy at this point but he is agreeable to an EGD EGD tomorrow (Hayden Bryson MD) Problem Qualifiers (1) GI bleed: Qualified Codes: K92.2 - Gastrointestinal hemorrhage, unspecified Belem Rodriguez Jun 12, 2017 10:47 Hayden Bryson MD Jun 12, 2017 23:34
--- NOTE | 2017-06-12 10:47 | HHI.PR ---
Subjective Remarks Follow-up anemia/GI bleed/acute on chronic kidney failure/metastasis disease 06/12/17-patient seen and examined, was transfused 2 units packed red blood cell. denies any significant shortness of breath this time. Objective Vitals Vital Signs Date Time Temp Pulse Resp B/P (MAP) Pulse Ox O2 Delivery O2 Flow Rate FiO2 06/12/17 09:45 98.0 71 18 180/106 96 06/12/17 09:15 97.7 69 06/12/17 09:15 97.9 70 20 200/102 96 06/12/17 08:48 97.7 69 22 185/103 93 06/12/17 06:47 06/12/17 06:43 67 190/76 (114) 06/12/17 06:42 96 3.00 06/12/17 04:51 98.1 75 16 193/100 97 06/12/17 04:36 98.0 80 18 194/102 94 06/12/17 04:21 98.2 78 18 190/106 94 06/12/17 04:06 98.0 82 20 173/97 93 06/12/17 01:53 95 Nasal Cannula 2.00 06/12/17 01:38 97.4 86 22 194/104 (134) 92 I/O 06/11/17 06/11/17 06/11/17 06/12/17 06/12/17 06/12/17 07:00 15:00 23:00 07:00 15:00 23:00 Intake Total 1298 ml Balance 1298 ml Intake IV Total 1295 ml Blood Product IV Normal Saline Flush 3 ml Result Diagram: 06/12/17 0217 06/12/17 0630 Imaging Last Impressions Chest X-Ray 06/12/17 0000 Signed Impressions: Service Date/Time: Monday, June 12, 2017 03:40 - CONCLUSION: 1. Bilateral lower lobe infiltrates, left greater than right with consolidation on the left and patchy infiltrates on the right. Werner Estevez MD Abdomen/Pelvis CT 06/12/17 0000 Signed Impressions: Service Date/Time: Monday, June 12, 2017 03:57 - CONCLUSION: 1. Bilateral obstructive uropathy with point of obstruction at ureterovesical junction with associated diffuse concentric thickening of the wall of the urinary bladder. Severe bilateral hydronephrosis and hydroureter. There is a history of prostate cancer. 2. Retroperitoneal, the pelvic, and inguinal adenopathy. 3. Multifocal blastic metastatic disease. Pathologic fractures of the right pubic bone and possible pathologic fracture of the posterior column of the right acetabulum. Werner Estevez MD Objective Remarks GENERAL: NAD SKIN: Warm and dry. HEAD: Normocephalic. EYES: No scleral icterus. No injection or drainage. NECK: Supple, trachea midline. No JVD or lymphadenopathy. CARDIOVASCULAR: Regular rate and rhythm without murmurs, gallops, or rubs. RESPIRATORY: Breath sounds equal bilaterally. No accessory muscle use. GASTROINTESTINAL: Abdomen soft, non-tender, nondistended. MUSCULOSKELETAL: No cyanosis, or edema. BACK: Nontender without obvious deformity. No CVA tenderness. A/P Problem List: (1) GI bleed ICD Code: K92.2 - Gastrointestinal hemorrhage, unspecified Status: Acute (2) Acute on chronic renal failure ICD Code: N17.9 - Acute kidney failure, unspecified; N18.9 - Chronic kidney disease, unspecified Status: Acute (3) Diabetes mellitus, type 2 ICD Code: E11.9 - Diabetes mellitus, type 2 Status: Chronic (4) Metastasis to bone ICD Code: C79.51 - Secondary malignant neoplasm of bone Status: Acute Assessment and Plan 57 year-old man with 1. Severe anemia/upper GI bleed s/p Transfusion 2 units PRBCs Continue Protonix drip Consult gastroenterology, appreciate assistance Monitor H&H 2. Acute renal failure BUN/creatinine 90/6.04 on admission Secondary to obstructive uropathy with bilateral hydronephrosis Nephrology consulted, appreciate recommendations Hold all nephrotoxic drugs Monitor renal function 3. Pneumonia CXR showed bilateral lower lobe infiltrates with consolidation on the left Currently on Rocephin/Azithromycin 4. Metastatic prostate cancer Patient with known prostate ca and accompanying metastatic disease, lost to follow up Oncology and urology consulted, appreciate recommendations Pain control with IV Dilaudid 5. Hypertension Labile BP Start hydralazine 50 mg every 8 hourly and Continue home Coreg Clonidine prn 6. CAD/Elevated troponin s/p stent in 2006 Troponin 0.07, suspect secondary to renal failure Given patient's history, will trend serial troponins/EKGs Problem Qualifiers (1) GI bleed: Qualified Codes: K92.2 - Gastrointestinal hemorrhage, unspecified Pontey,Lan MD Jun 12, 2017 10:47
[2017-06-12] MEDS: ALPRAZolam 0.5 MG TAB PO PRN (12:20)
[2017-06-12] MEDS: hydrALAZINE HCL 50 MG TAB PO SCH ×2 (13:00→22:00)
[2017-06-12] MEDS: SUCRALFATE 1 GM/10 ML CUP PO SCH ×3 (13:23→23:24)
--- NOTE | 2017-06-12 13:43 | EKG ---
Date Performed: 06/12/2017 Time Performed: 01:50:57 PTAGE: 57 years EKG: Sinus rhythm LEFT ATRIAL ENLARGEMENT LEFT VENTRICULAR HYPERTROPHY WITH REPOLARIZATION CHANGES ABNORMAL ECG Compar ed to PREVIOUS TRACING , repolarization changes are less prominent. PREVIOUS TRACIN 8 06.24 DOCTOR: Last Scott Interpretating Date/Time 06/12/2017 13:42:31
[2017-06-12 14:00] LABS: HEMATOCRIT 27.8 % (39.0-51.0); REVIEW FLAG FINAL
[2017-06-12 16:37] LABS: HEMATOCRIT 26.8 % (39.0-51.0); REVIEW FLAG FINAL
[2017-06-12] MEDS: SODIUM CHLORIDE 0.9% FLUSH 10 ML FLUSH IV FLUSH PRN (18:12)
[2017-06-12] MEDS: TAMSULOSIN HCL 0.4 MG CAP PO SCH (21:00)
[2017-06-13] VITALS (9 sets, daily range): BP systolic 107–137; BP diastolic 56–78; PULSE 52–62; RESP 16–20; TEMP 96.2–97.6; O2SAT 97–99
[2017-06-13] MEDS ORDERED: METOPROLOL TARTRATE 25 MG TAB PO PRN (00:15)
[2017-06-13] MEDS ORDERED: CHLORHEXIDINE GLUCONATE 2 % 1 PACK (2 CLOTHS) TOPICAL PRN (00:15)
[2017-06-13] MEDS ORDERED: POVIDONE IODINE 5% (ANTISEPSIS KIT) 4 APPLICATIONS EACH NARE PRN (00:15)
[2017-06-13] MEDS ORDERED: LACTATED RINGER'S 1000 ML IV PRN (00:15)
[2017-06-13] MEDS ORDERED: SODIUM CHLORID 0.9% 500 ML IV PRN (00:15)
[2017-06-13 00:16] LABS: HEMATOCRIT 27.6 % (39.0-51.0); REVIEW FLAG FINAL
[2017-06-13] MEDS: SODIUM CHLOR 0.9% 1000 ML INJ 1,000 ML IV SCH ×3 (05:49→23:00)
[2017-06-13] MEDS: PANTOPRAZOLE INJ 80 MG in SODIUM CHLORIDE 0.9% INJ 100 ML IV SCH (05:50)
[2017-06-13] MEDS: AZITHROMYCIN INJ 500 MG in SODIUM CHLOR 0.9% 250 ML INJ 250 ML IV SCH (05:52)
[2017-06-13] MEDS: hydrALAZINE HCL 50 MG TAB PO SCH ×3 (05:53→22:13)
[2017-06-13] MEDS: HYDROmorphone HCL PF 2 MG/ML VIAL IV PUSH PRN ×3 (06:01→19:59)
[2017-06-13] MEDS: SUCRALFATE 1 GM/10 ML CUP PO SCH ×4 (07:55→19:52)
[2017-06-13] MEDS: cefTRIAXone INJ 1,000 MG in SODIUM CHLORIDE 0.9% INJ 100 ML IV SCH (07:55)
[2017-06-13] MEDS: INSULIN ASPART SUPPLEMENTAL SCALE SQ SCH ×4 (07:56→19:53)
--- NOTE | 2017-06-13 07:57 | MB ---
cc: URIEL ANAYA DATE OF CONSULTATION 06/13/2017 DATE OF 1960 REASON FOR CONSULTATION Patient with a history of stage IV prostate cancer who presents with urinary obstruction, hematuria and severe anemia. HISTORY OF PRESENT ILLNESS This is a 57-year-old male who has a diagnosis of prostate adenocarcinoma. Based on a biopsy in July 2016, he had a Yesenia score of 4 + 4 = 8. The tumor involved the prostate bilaterally and extended into the periprosthetic adipose tissue. The patient was initiated on hormone blockade therapy with Lupron injections. Recently, he developed progressive disease with lymphadenopathy in his right groin. He had CT scans of the pelvis which confirmed the retroperitoneal adenopathy in the left iliac chain. There was also prominent lymphadenopathy in the pelvic sidewalls. The patient was found to have diffuse bone mets. There was an incomplete fracture in the left acetabulum and inferior pubic rami and fractures were seen in the right superior inferior pubic rami as well. There was bladder wall thickening with a 2.3-cm mass. He also had a bone scan which revealed widespread osseous metastatic disease involving the thoracic and lumbar spine, as well as the sacral ala bilaterally and right intertrochanteric region. Mets were seen in the proximal humerus and ribs. 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 He underwent right-sided orchiectomy. He did not receive any adjuvant chemotherapy or radiation treatments. The patient now presents to the emergency department with progressive weakness, urinary retention, and abdominal pain. He was found to be severely anemic with a hemoglobin in the 7 range. He was in acute renal failure. He had urinary obstruction. A Celaya catheter was placed. He has gross hematuria. A CT scan of the abdomen and pelvis was obtained. This revealed bilateral obstructive uropathy with point of obstruction at the urethrovesical junction with diffuse concentric thickening of the wall of the urinary bladder. There was severe bilateral hydronephrosis and hydroureter. Two units of packed red blood cell was ordered, one unit has been transfused. I have been consulted to make further recommendations for this patient who has stage IV prostate cancer. The patient is currently frustrated. He was made n.p.o. Apparently on his presentation, he stated that he was spitting up blood a few weeks ago and GI has been consulted. There is a possibility that he may undergo EGD tomorrow. However, he has been n.p.o. for the past 24 hours. He has a Celaya catheter in place and there is gross hematuria with bright red blood. He feels fatigued and weak. He denies any pain. He has not had any headaches, blurry vision, or chest pain. He has some dyspnea on exertion. REVIEW OF SYSTEMS A comprehensive review of systems was completed which is as described in the HPI. PAST MEDICAL HISTORY 1. 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 2. Diabetes type 2 3. History of coronary stents in 2006. PAST SURGICAL HISTORY 1. Foot surgery 2. Colonoscopy in 2017 3. Orchiectomy FAMILY HISTORY Family history was reviewed and significant for heart valve disease. Father of unknown cancer. SOCIAL HISTORY He is . He does not smoke cigarettes. He does not drink alcohol. No illicit drug use. MEDICATIONS Home medications include: 1. Aspirin one tablet p.o. daily 2. Carvedilol 25 mg p.o. b.i.d. 3. Flomax 0.4 mg daily 4. Gabapentin 300 mg p.o. b.i.d. 5. Lisinopril 40 mg p.o. b.i.d. 6. Percocet 10/225 q.4 h p.r.n. 7. Casodex 50 mg p.o. daily ALLERGIES Allergic to FENTANYL AND METFORMIN. PHYSICAL EXAMINATION VITAL SIGNS: Blood pressure is 136/68, pulse is in the 70s, temperature is 97.9, respiratory rate is 18, O2 sats 96% on room air. GENERAL: A chronically ill-appearing male who appears pale in no apparent distress. HEENT: Pupils are equal, round, reactive to light. EOMI. No oral thrush. No oral lesions. NECK: Supple without JVD, no bruits or lymphadenopathy. CHEST: Clear to auscultation bilaterally. CARDIAC: S1-S2 regular rate and rhythm. ABDOMEN: Soft, nontender, nondistended. Bowel sounds are present. EXTREMITIES: Without edema, erythema or cyanosis. SKIN: Without any petechiae, lesion or bruises. NEUROLOGIC: No focal deficits. PSYCHIATRIC: Mood and affect is appropriate. A Celaya catheter is in place gross hematuria noted. LABORATORY DATA WBC is 9, hemoglobin is 7.1, MCV 74.3, platelet count 39.2. Serum chemistries sodium 141, potassium 5.3, chloride 115, CO2 15.2, BUN 88, creatinine 5.89, calcium is 8.1. Troponins are mildly elevated at 0.07. BNP is elevated at 3329. Coags PT 13.9, INR 1.4, PTT 27.3, total bilirubin is normal at 0.6. IMAGING STUDIES Reviewed in the EMR. ASSESSMENT/PLAN This is a 57-year-old male who has a diagnosis of stage IV prostate adenocarcinoma with Yesenia score for 4 + 4 = 8. He has diffusely metastatic disease involving his bones. He has lymphadenopathy in his abdomen. He has a bladder mass. He now presents to the emergency room with urinary obstruction, gross hematuria, severe anemia and on imaging he was found to have bilateral severe hydronephrosis. 1. Severe anemia which is microcytic. This appears to be secondary to his hematuria. He has been given packed red blood cell transfusions. Anemia studies will not be reliable, however, I will check transferrin levels. He is microcytic and there is a strong likelihood that he is underlying iron deficient. He will benefit from IV iron therapy. There is no evidence of hemolysis. He endorses coughing up bright red blood approximately 5-10 days ago. He states that he has not coughed up any blood. GI evaluation is ongoing. He may need an EGD. 2. Bilateral hydronephrosis with obstruction due to malignancy, bladder mass and gross hematuria. He needs a urological evaluation. This patient will need stent placement. He will also need a cystoscopy with possible resection of the bladder mass for palliative reasons. It is quite possible that he is bleeding from this bladder mass. We will also need to obtain a biopsy this mass. 3. Stage IV prostate adenocarcinoma. We will check his PSA and LDH levels. He is currently on hormone blockade therapy. Continue Casodex while inpatient. He will require systemic chemotherapy outpatient. 4. Acute renal failure due to urinary obstruction and hydronephrosis. 5. Peripheral neuropathy. He takes Gabapentin. Thank you for allowing me to participate in the care of this patient. I will continue to follow this patient along. MD NOLBERTO Olvera/ANGEL LUIS /1:58 AM /7:28 AM
[2017-06-13] MEDS: SODIUM CHLORIDE 0.9% FLUSH 10 ML FLUSH IV FLUSH SCH ×2 (07:59→19:52)
[2017-06-13] MEDS: CARVEDILOL 12.5 MG TAB PO SCH ×2 (07:59→19:52)
[2017-06-13] MEDS: ALPRAZolam 0.5 MG TAB PO PRN (08:08)
[2017-06-13] MEDS: SODIUM CHLORIDE 0.9% FLUSH 10 ML FLUSH IV FLUSH PRN (10:31)
--- NOTE | 2017-06-13 11:07 | PD.ONC.PN ---
Subjective Subjective Remarks Afebrile overnight. Patient resting in bed in nad. Objective Data Date Time Temp Pulse Resp B/P (MAP) Pulse Ox O2 Delivery O2 Flow Rate FiO2 06/13/17 08:00 97 Room Air 06/13/17 08:00 96.8 52 19 107/56 (73) 97 06/13/17 04:00 97.0 55 20 120/64 (82) 99 06/13/17 00:00 97.0 59 20 137/63 (87) 97 06/12/17 20:00 50 20 129/59 (82) 98 06/12/17 18:39 16 06/12/17 16:19 57 17 138/75 (96) 94 06/12/17 12:00 97.9 70 20 136/68 (90) 96 06/13/17 06/13/17 06/13/17 07:00 15:00 23:00 Intake Total 1100 ml 500 ml Output Total 300 ml Balance 1100 ml 200 ml Result Diagram: 06/12/17 2392 06/12/17 0630 Laboratory Results Laboratory Tests Test 06/12/17 13:30 06/12/17 16:06 06/12/17 23:52 Hemoglobin 9.2 GM/DL 8.6 GM/DL 8.6 GM/DL Hematocrit 27.8 % 26.8 % 27.6 % Total Creatine Kinase 265 U/L 287 U/L 283 U/L Troponin I 0.07 NG/ML 0.06 NG/ML 0.04 NG/ML B-Type Natriuretic Peptide 3329 PG/ML Culture Results Microbiology Date/Time Source Procedure Growth Status 06/12/17 02:55 Urine Catheterized Urine Urine Culture Pending Received Administered Medications Medications (Trade) Dose Ordered Sig/Jerzy Route PRN Reason Start Time Stop Time Status Last Admin Dose Admin Sodium Chloride (NS Flush) 2 ml UNSCH PRN IV FLUSH FLUSH AFTER USING IV ACCESS 06/12/17 05:00 06/13/17 10:31 Sodium Chloride (NS Flush) 2 ml BID IV FLUSH 06/12/17 09:00 06/12/17 09:00 Ondansetron HCl (Zofran Inj) 4 mg Q6H PRN IV PUSH NAUSEA OR VOMITING 06/12/17 05:00 06/12/17 10:33 Carvedilol (Coreg) 25 mg BID PO 06/12/17 09:00 06/12/17 09:17 Ceftriaxone Sodium 1000 mg/ Sodium Chloride 100 ml @ 200 mls/hr Q24H IV 06/12/17 08:00 06/13/17 07:55 Azithromycin 500 mg/Sodium Chloride 250 ml @ 250 mls/hr Q24H IV 06/12/17 06:00 06/13/17 05:52 Pantoprazole Sodium 80 mg/ Sodium Chloride 100 ml @ 10 mls/hr Q10H IV 06/12/17 06:54 06/13/17 05:50 Sodium Chloride 1,000 ml @ 100 mls/hr Q10H IV 06/12/17 07:00 06/13/17 05:49 Sucralfate (Carafate Liq) 1 gm ACHS PO 06/12/17 12:00 06/13/17 07:55 Hydralazine HCl (Apresoline) 50 mg Q8HR PO 06/12/17 14:00 06/13/17 05:53 Hydromorphone HCl (Dilaudid Pf Inj) 2 mg Q4H PRN IV PUSH pain > 4 06/12/17 13:45 06/13/17 10:30 Alprazolam (Xanax) 0.5 mg Q8H PRN PO anxiety 06/12/17 12:00 06/13/17 08:08 Objective Remarks GENERAL: Middle aged male lying in bed, sleeping on approach, but awakens to tactile stimulus. SKIN: Warm and dry. HEAD: Atraumatic. Normocephalic. EYES: No scleral icterus. No injection or drainage. ENT: No nasal bleeding or discharge. Mucous membranes pink and moist. NECK: Trachea midline. CARDIOVASCULAR: Regular rate and rhythm. RESPIRATORY: anterior campbell clear. GASTROINTESTINAL: Abdomen soft, non-tender, nondistended. MUSCULOSKELETAL: Extremities edema. NEUROLOGICAL: Awake and alert. normal speech. moving all extremities. Assessment/Plan Problem List: (1) Prostate cancer metastatic to bone ICD Codes: C61 - Malignant neoplasm of prostate; C79.51 - Secondary malignant neoplasm of bone Plan: --currently on hormone blockade therapy. continue Casodex while inpatient. will require systemic chemotherapy outpatient. --CT ab/pelvis-->bilateral obstructive uropathy with point of obstruction at the urethrovesical junction with diffuse concentric thickening of the wall of the urinary bladder. +severe bilateral hydronephrosis and hydroureter. Treatment History: July 2016-- Avon score of 4 + 4 = 8. tumor involved the prostate bilaterally and extended into the periprosthetic adipose tissue. was initiated on hormone blockade therapy with Lupron injections. --Recently--> developed progressive disease with lymphadenopathy in his right groin. CT scans of the pelvis confirmed the retroperitoneal adenopathy in the left iliac chain. +prominent lymphadenopathy in the pelvic sidewalls. + diffuse bone mets. +incomplete fracture in the left acetabulum and inferior pubic rami and fractures in the right superior inferior pubic rami+bladder wall thickening with a 2.3-cm mass. --bone scan --> widespread osseous metastatic disease involving the thoracic and lumbar spine+ sacral ala bilaterally and right intertrochanteric region. Mets in the proximal humerus and ribs. (2) Severe anemia ICD Codes: D64.9 - Anemia, unspecified Plan: --appears to be secondary to his hematuria. --no evidence of hemolysis. --GI following and plans for EGD today (3) Hydronephrosis ICD Codes: N13.30 - Unspecified hydronephrosis Status: Acute Plan: --Bilateral hydronephrosis with obstruction due to malignancy, bladder mass and gross hematuria. --needs a urological evaluation and need stent placement. --will also need a cystoscopy with possible resection of the bladder mass for palliative reasons. --likely bleeding from this bladder mass. will also need to obtain a biopsy this mass. (4) Acute kidney failure ICD Codes: N17.9 - Acute kidney failure, unspecified Status: Acute Plan: --due to urinary obstruction and hydronephrosis. Assessment 57y/o male with a history of stage IV prostate cancer admitted with urinary obstruction, hematuria and severe anemia. 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 s/p right-sided orchiectomy. did not receive any adjuvant chemotherapy or radiation treatments. Diabetes type 2 History of coronary stents in 2006. Plan 1. awaiting CBC today--patient will likely need another blood transfusion 2. awaiting urology consult. patient likely needs cystoscopy to stop bleeding. Attending Statement The exam, history, and the medical decision-making described in the above note were completed with the assistance of the mid-level provider. I reviewed and agree with the findings presented. I attest that I had a [id number] encounter with the patient on the same day, and personally performed and documented my assessment and findings in the medical record Stage IV prostate cancer and possibly bladder cancer with urinary obstruction severely anemic due to bleeding. Iron deficient transfuse pRBC will start IV iron PSA around 4 only will need to consider stent placement/but patient refusing will discuss again with patient tomorrow acute renal failure due to obstruction obtain renal scan in am hematuria persists BNP significantly elevated --in the setting of MIRYAM/? CHF no clinical signs of acute CHF check 2 D echo to evaluate EF multiple ongoing issues in this acutely ill patient d/w rn o/n events reviewed Problem Qualifiers (1) Acute kidney failure: Qualified Codes: N17.9 - Acute kidney failure, unspecified Agueda Armstrong Jun 13, 2017 11:07 Gonzalez Mosley MD Jun 13, 2017 22:38
--- NOTE | 2017-06-13 11:25 | HHI.PR ---
Subjective Remarks Follow-up anemia/GI bleed/acute on chronic kidney failure/metastasis disease/ hydronephrosis 06/12/17-patient seen and examined, was transfused 2 units packed red blood cell. denies any significant shortness of breath this time. 06/13/17-patient seen and examined, Celaya with gross hematuria ,currently nothing by mouth pending EGD. Afebrile. Objective Vitals Vital Signs Date Time Temp Pulse Resp B/P (MAP) Pulse Ox O2 Delivery O2 Flow Rate FiO2 06/13/17 08:00 97 Room Air 06/13/17 08:00 96.8 52 19 107/56 (73) 97 06/13/17 04:00 97.0 55 20 120/64 (82) 99 06/13/17 00:00 97.0 59 20 137/63 (87) 97 06/12/17 20:00 50 20 129/59 (82) 98 06/12/17 18:39 16 06/12/17 16:19 57 17 138/75 (96) 94 06/12/17 12:00 97.9 70 20 136/68 (90) 96 I/O 06/12/17 06/12/17 06/12/17 06/13/17 06/13/17 06/13/17 06:59 14:59 22:59 06:59 14:59 22:59 Intake Total 1698 ml 30 ml 0 ml 1100 ml 500 ml Output Total 1325 ml 200 ml 300 ml Balance 1698 ml -1295 ml -200 ml 1100 ml 200 ml Intake Oral 30 ml 0 ml 500 ml IV Total 1295 ml 1100 ml Packed Cells 400 ml Blood Product IV Normal Saline Flush 3 ml Output Urine Total 1325 ml 200 ml 300 ml # Voids 1 # Bowel Movements 0 Result Diagram: 06/12/17 2352 06/12/17 0630 Imaging Last Impressions Chest X-Ray 06/12/17 0000 Signed Impressions: Service Date/Time: Monday, June 12, 2017 03:40 - CONCLUSION: 1. Bilateral lower lobe infiltrates, left greater than right with consolidation on the left and patchy infiltrates on the right. Werner Estevez MD Abdomen/Pelvis CT 06/12/17 0000 Signed Impressions: Service Date/Time: Monday, June 12, 2017 03:57 - CONCLUSION: 1. Bilateral obstructive uropathy with point of obstruction at ureterovesical junction with associated diffuse concentric thickening of the wall of the urinary bladder. Severe bilateral hydronephrosis and hydroureter. There is a history of prostate cancer. 2. Retroperitoneal, the pelvic, and inguinal adenopathy. 3. Multifocal blastic metastatic disease. Pathologic fractures of the right pubic bone and possible pathologic fracture of the posterior column of the right acetabulum. Werner Estevez MD Objective Remarks GENERAL: NAD SKIN: Warm and dry. HEAD: Normocephalic. EYES: No scleral icterus. No injection or drainage. NECK: Supple, trachea midline. No JVD or lymphadenopathy. CARDIOVASCULAR: Regular rate and rhythm without murmurs, gallops, or rubs. RESPIRATORY: Breath sounds equal bilaterally. No accessory muscle use. GASTROINTESTINAL: Abdomen soft, non-tender, nondistended. MUSCULOSKELETAL: No cyanosis, or edema. : Celaya with gross hematuria BACK: Nontender without obvious deformity. No CVA tenderness. A/P Problem List: (1) GI bleed ICD Code: K92.2 - Gastrointestinal hemorrhage, unspecified Status: Acute (2) Acute on chronic renal failure ICD Code: N17.9 - Acute kidney failure, unspecified; N18.9 - Chronic kidney disease, unspecified Status: Acute (3) Diabetes mellitus, type 2 ICD Code: E11.9 - Diabetes mellitus, type 2 Status: Chronic (4) Metastasis to bone ICD Code: C79.51 - Secondary malignant neoplasm of bone Status: Acute (5) Hydronephrosis ICD Code: N13.30 - Unspecified hydronephrosis Status: Acute Assessment and Plan 57 year-old man with 1. Severe anemia/upper GI bleed s/p Transfusion 2 units PRBCs Continue Protonix drip Appreciate input from gastroenterology, plan for EGD today 06/13/17 Monitor H&H 2. Acute renal failure BUN/creatinine 90/6.04 on admission Secondary to obstructive uropathy with bilateral hydronephrosis Nephrology consulted, appreciate recommendations Hold all nephrotoxic drugs Monitor renal function 3. Pneumonia CXR showed bilateral lower lobe infiltrates with consolidation on the left Currently on Rocephin/Azithromycin 4. Metastatic prostate cancer Patient with known prostate ca and accompanying metastatic disease, lost to follow up Appreciate input from oncology 5. Hydronephrosis Awaiting for evaluation from neurology 6. Hypertension Continue hydralazine 50 mg every 8 hourly and home Coreg Clonidine prn 7. CAD/Elevated troponin s/p stent in 2006 Troponin 0.07, suspect secondary to renal failure Acs ruled out DVT prophylaxis: Chemical anti-prophylactic contraindicated secondary to GI bleed as well as hematuria.. Bilateral SCDs Problem Qualifiers (1) GI bleed: Qualified Codes: K92.2 - Gastrointestinal hemorrhage, unspecified Lan West MD Jun 13, 2017 11:25
--- NOTE | 2017-06-13 11:35 | PD.CONS ---
[facility] Service Urology Consult Requested By Dr. Lee Primary Care Physician Unknown Diagnosis: (1) GI bleed ICD Code: K92.2 - Gastrointestinal hemorrhage, unspecified (2) Acute on chronic renal failure ICD Code: N17.9 - Acute kidney failure, unspecified; N18.9 - Chronic kidney disease, unspecified (3) Diabetes mellitus, type 2 ICD Code: E11.9 - Diabetes mellitus, type 2 (4) Metastasis to bone ICD Code: C79.51 - Secondary malignant neoplasm of bone (5) Hydronephrosis ICD Code: N13.30 - Unspecified hydronephrosis History of Present Illness Case of a pleasant 57-year-old gentleman with advanced prostate cancer who is presently under the care of Dr. Sepulveda (urology) and Dr. Ulrich (oncology) and being managed medically who is now admitted for severe abdominal pain with associated nausea and vomiting. Patient actually had abnormal blood studies noted a proximally 2 weeks ago and was advised by Dr. Sepulveda to come to the emergency room to receive a blood transfusion. Due to transportation issues the patient did not adhere to Dr. Sepulveda's recommendations. Upon present arrival, patient was noted to be severely anemic and also has significant elevation of the BUN/creatinine. A CT scan study was performed which was consistent with advanced prostate cancer. Findings included bilateral ureteral obstruction of the distal ureters causing hydronephrosis. There was also diffuse concentric thickening of the bladder wall along with retroperitoneal, pelvic and inguinal adenopathy. Also noted were bony changes with pathologic fractures involving the right pubic bone and possibly the right acetabulum. Patient also has been having problems with ongoing gross hematuria for the past several months. At the time of consultation, the patient had an indwelling Celaya catheter draining medium red-colored urine without clots. Pain appeared to be adequately controlled. Since being admitted, the patient has been producing a fair amount of urine with some improvement in his serum creatinine levels. Review of Systems Constitutional: DENIES: Fever, Chills Cardiovascular: DENIES: Chest pain Gastrointestinal: COMPLAINS OF: Abdominal pain (diffuse) Genitourinary: COMPLAINS OF: Hematuria (ongoing for the past several months) Musculoskeletal: DENIES: Back pain Except as stated in HPI: all other systems reviewed are Neg Past Family Social History Past Medical History Metastatic prostate cancer Testicular cancer Diabetes mellitus Hypertension Coronary artery disease Congestive heart failure Depression History anterior cruciate ligament repair Past Surgical History Status post left radical orchiectomy 1986 Status post cardiac stent placement 2007 Status post left foot debridement procedure 2016 Reported Medications Refer to EMR Allergies: Coded Allergies: glyburide (Verified Allergy, Severe, RASH, 06/12/17) amlodipine (Verified Allergy, Unknown, 06/12/17) rhabdomyolysis atorvastatin (Verified Allergy, Unknown, 06/12/17) rhabdomyolysis metformin (Verified Allergy, Unknown, Rash, 06/12/17) pravastatin (Verified Allergy, Unknown, 06/12/17) rhabdomyolysis simvastatin (Verified Allergy, Unknown, 06/12/17) rhabdomyolysis Active Ordered Medications Refer to EMR Family History Pancreatic cancer Cardiac valvular disease Hypertension Diabetes mellitus Social History Denies history tobacco, alcohol or intravenous drug abuse Physical Exam Vital Signs Date Time Temp Pulse Resp B/P (MAP) Pulse Ox O2 Delivery O2 Flow Rate FiO2 06/13/17 08:00 97 Room Air 06/13/17 08:00 96.8 52 19 107/56 (73) 97 06/13/17 04:00 97.0 55 20 120/64 (82) 99 06/13/17 00:00 97.0 59 20 137/63 (87) 97 06/12/17 20:00 50 20 129/59 (82) 98 06/12/17 18:39 16 06/12/17 16:19 57 17 138/75 (96) 94 06/12/17 12:00 97.9 70 20 136/68 (90) 96 Physical Exam GENERAL: This is a well-nourished, well-developed patient, in no apparent distress. SKIN: No rashes, ecchymoses or lesions. Cool and dry. HEAD: Atraumatic. Normocephalic. No temporal or scalp tenderness. EYES: Pupils equal round and reactive. Extraocular motions intact. No scleral icterus. No injection or drainage. ENT: Nose without bleeding, purulent drainage or septal hematoma. Throat without erythema, tonsillar hypertrophy or exudate. Uvula midline. Airway patent. NECK: Trachea midline. No JVD or lymphadenopathy. Supple, nontender, no meningeal signs. GASTROINTESTINAL: Abdomen soft, non-tender, nondistended. No hepato-splenomegaly , or palpable masses. No guarding. GENITOURINARY: No CVA tenderness, indwelling Celaya catheter draining medium red- colored urine without clots MUSCULOSKELETAL: Bilateral lower extremities edematous with 2+ pitting edema NEUROLOGICAL: Awake and alert. Cranial nerves II through XII intact. Motor and sensory grossly within normal limits. Normal speech. Lab results reviewed: Yes Laboratory Tests Test 06/12/17 13:30 06/12/17 16:06 06/12/17 23:52 Hemoglobin 9.2 8.6 8.6 Hematocrit 27.8 26.8 27.6 Total Creatine Kinase 265 287 283 Troponin I 0.07 0.06 0.04 B-Type Natriuretic Peptide 3329 Date/Time Source Procedure Growth Status 06/12/17 02:55 Urine Catheterized Urine Urine Culture - Preliminary NO GROWTH IN 24 HOURS. Resulted Result Diagram: 06/12/17 2352 06/12/17 0630 Personally reviewed images: Yes Imaging Last Impressions Chest X-Ray 06/12/17 0000 Signed Impressions: Service Date/Time: Monday, June 12, 2017 03:40 - CONCLUSION: 1. Bilateral lower lobe infiltrates, left greater than right with consolidation on the left and patchy infiltrates on the right. Werner Estevez MD Abdomen/Pelvis CT 06/12/17 0000 Signed Impressions: Service Date/Time: Monday, June 12, 2017 03:57 - CONCLUSION: 1. Bilateral obstructive uropathy with point of obstruction at ureterovesical junction with associated diffuse concentric thickening of the wall of the urinary bladder. Severe bilateral hydronephrosis and hydroureter. There is a history of prostate cancer. 2. Retroperitoneal, the pelvic, and inguinal adenopathy. 3. Multifocal blastic metastatic disease. Pathologic fractures of the right pubic bone and possible pathologic fracture of the posterior column of the right acetabulum. Werner Estevez MD Assessment and Plan Assessment and Plan Urologic impression: #1 progression of metastatic prostate cancer #2 bilateral hydroureteronephrosis likely related to prostate cancer involving the distal ureters #3 bladder mass seen on CT scanning likely related to the prostate cancer #4 hematuria related to the prostate cancer Recommendations: #1 continue with indwelling Celaya catheter to gravity drainage and irrigate when necessary #2 discussed cystoscopic evaluation and attempted placement of bilateral ureteral stents with patient however at this time he does not want to have this performed #3 ongoing medical management as per oncology #4 patient should continue to follow up with his established urologist Dr. Sepulveda after hospital discharge. Problem Qualifiers (1) GI bleed: Qualified Codes: K92.2 - Gastrointestinal hemorrhage, unspecified Scaglia,Casey Fuchs MD Jun 13, 2017 11:35
[2017-06-13 11:52] LABS: BASOPHIL % 0.2 % (0.0-2.0); EOSINOPHIL # 0.4 TH/MM3 (0-0.4); EOSINOPHIL % 4.7 % (0.0-4.0); HEMATOCRIT 25.2 % (39.0-51.0); HEMO FLAGS DIFF FINAL; LYMPH % 11.4 % (9.0-44.0); LYMPHOCYTE # 0.9 TH/MM3 (1.0-4.8); MEAN CELL VOLUME 77.8 FL (80.0-100.0); MEAN CORPUSCULAR HEMOGLOBIN 24.1 PG (27.0-34.0); MEAN CORPUSCULAR HGB CONC 30.9 % (32.0-36.0); MONO % 7.5 % (0.0-8.0); NEUT % 76.2 % (16.0-70.0); PLATELET COUNT 278 TH/MM3 (150-450); RED BLOOD COUNT 3.24 MIL/MM3 (4.50-5.90); RED CELL DISTRIBUTION WIDTH 23.5 % (11.6-17.2); WHITE BLOOD COUNT 7.9 TH/MM3 (4.0-11.0)
[2017-06-13] MEDS ORDERED: ePHEDrine/NS 25 MG/5 ML SYRINGE IV ONE (12:00)
[2017-06-13] MEDS ORDERED: LIDOCAINE HCL 1% PF 5 ML SYRINGE OTHER ONE (12:00)
[2017-06-13] MEDS ORDERED: PROPOFOL 200 MG/20 ML AMP IV ONE (12:00)
[2017-06-13 12:16] LABS: LDH SERUM 219 U/L (87-241)
[2017-06-13 12:41] LABS: CREATINE KINASE 283 U/L (39-308); TRANSFERRIN IRON PROFILE 207 MG/DL (200-360)
[2017-06-13] MEDS ORDERED: DO NOT ADM ANY ANTICOAGULANT DRUGS PRN (14:36)
[2017-06-13] MEDS ORDERED: SODIUM CHLOR 0.9% 250 ML INJ 250 ML IV ONE (14:45)
--- NOTE | 2017-06-13 15:30 | PD.PROCEDR ---
GI Procedure REFERRING PHYSICIAN Dr. Honeycutt PROCEDURE PERFORMED EGD with biopsy INDICATION FOR PROCEDURE GI bleed, nausea vomiting PROCEDURE: The procedure, risks and benefits were discussed with Mr. Bravo and informed consent was obtained. Anesthesia sedated him with Diprivan. He was placed in the left lateral decubitus position. EGD: The Pentax videoscope was introduced through the oropharynx and advanced to the second portion of the duodenum under direct visualization. Retroflexion was performed in the stomach. FINDINGS: The esophagus this was unremarkable within normal limits The stomach there was patchy erythema in the antrum but no ulcerations or erosions no blood or bleeding antral biopsies were taken further evaluation the rest of the stomach was unremarkable The duodenum there was a patchy erythema with superficial ulcerations noted in the duodenal bulb and duodenal sweep no visible vessel no active bleeding biopsies were taken ESTIMATED BLOOD LOSS: None SPECIMENS REMOVED: Gastric and duodenal biopsies COMPLICATIONS: None IMPRESSION: Gastritis Duodenitis Duodenal ulcers PLAN: Await biopsies Avoid NSAIDs and aspirin EGD in 2 months PPI Supportive care Hayden Bryson MD Jun 13, 2017 15:30
[2017-06-13] MEDS: ACETAMINOPHEN 325 MG TAB PO PRN (18:59)
[2017-06-13] MEDS: diphenhydrAMINE HCL 25 MG CAP PO PRN (18:59)
[2017-06-13] MEDS: TAMSULOSIN HCL 0.4 MG CAP PO SCH (19:52)
[2017-06-13] MEDS: PANTOPRAZOLE SOD 40 MG DELAYED RELEASE TAB PO SCH (19:52)
[2017-06-13 22:58] LABS: BICARBONATE 12.5 MEQ/L (21.0-32.0); POTASSIUM 4.9 MEQ/L (3.5-5.1)
[2017-06-14] VITALS (8 sets, daily range): BP systolic 98–137; BP diastolic 60–78; PULSE 54–69; RESP 18–20; TEMP 96.8–98; O2SAT 96–98
[2017-06-14] MEDS: IRON SUCROSE INJ 200 MG in SODIUM CHLORIDE 0.9% INJ 100 ML IV SCH ×2 (01:58→07:56)
[2017-06-14] MEDS: HYDROmorphone HCL PF 2 MG/ML VIAL IV PUSH PRN ×3 (02:03→11:57)
[2017-06-14 05:06] LABS: BICARBONATE 10.9 MEQ/L (21.0-32.0)
[2017-06-14 05:19] LABS: BASOPHIL % 0.2 % (0.0-2.0); EOSINOPHIL # 0.3 TH/MM3 (0-0.4); HEMATOCRIT 30.1 % (39.0-51.0); HEMO FLAGS DIFF FINAL; LYMPH % 11.1 % (9.0-44.0); LYMPHOCYTE # 0.8 TH/MM3 (1.0-4.8); MEAN CELL VOLUME 82.4 FL (80.0-100.0); MEAN CORPUSCULAR HEMOGLOBIN 24.4 PG (27.0-34.0); MONO % 6.8 % (0.0-8.0); NEUT % 77.9 % (16.0-70.0); PLATELET COUNT 224 TH/MM3 (150-450); RED BLOOD COUNT 3.66 MIL/MM3 (4.50-5.90); RED CELL DISTRIBUTION WIDTH 22.8 % (11.6-17.2); WHITE BLOOD COUNT 7.7 TH/MM3 (4.0-11.0)
[2017-06-14 05:22] LABS: MEAN CORPUSCULAR HGB CONC 29.6 % (32.0-36.0)
[2017-06-14] MEDS: hydrALAZINE HCL 50 MG TAB PO SCH ×3 (05:58→22:16)
[2017-06-14] MEDS: AZITHROMYCIN INJ 500 MG in SODIUM CHLOR 0.9% 250 ML INJ 250 ML IV SCH (06:01)
[2017-06-14] MEDS: SUCRALFATE 1 GM/10 ML CUP PO SCH ×4 (07:56→22:15)
[2017-06-14] MEDS: SODIUM CHLOR 0.9% 1000 ML INJ 1,000 ML IV SCH (07:56)
[2017-06-14] MEDS: INSULIN ASPART SUPPLEMENTAL SCALE SQ SCH ×4 (07:56→21:00)
[2017-06-14] MEDS: SODIUM CHLORIDE 0.9% FLUSH 10 ML FLUSH IV FLUSH SCH ×2 (07:57→22:16)
[2017-06-14] MEDS: cefTRIAXone INJ 1,000 MG in SODIUM CHLORIDE 0.9% INJ 100 ML IV SCH (07:57)
[2017-06-14] MEDS: PANTOPRAZOLE SOD 40 MG DELAYED RELEASE TAB PO SCH ×2 (07:58→22:16)
[2017-06-14] MEDS: CARVEDILOL 12.5 MG TAB PO SCH ×2 (07:58→22:15)
[2017-06-14] MEDS: ALPRAZolam 0.5 MG TAB PO PRN (10:38)
[2017-06-14] MEDS ORDERED: MAGNESIUM CITRATE SOLN 300 ML BTL PO ONE ×2 (12:00→18:00)
--- NOTE | 2017-06-14 13:34 | HHI.GIFU ---
Subjective Remarks Pt OOB in chair, finished eating entire lunch tray. He denies nausea, vomiting , abdominal pain. Continues to report dark stools. (Ayesha Negrete) Objective Vitals I&O Vital Signs Date Time Temp Pulse Resp B/P (MAP) Pulse Ox O2 Delivery O2 Flow Rate FiO2 06/14/17 12:00 96.8 60 20 98/60 (73) 96 06/14/17 08:00 54 18 102/60 (74) 97 06/14/17 08:00 54 06/14/17 07:00 Room Air 06/14/17 05:42 96 06/14/17 04:59 59 126/74 (91) 96 06/14/17 00:25 60 20 123/78 (93) 98 06/13/17 20:40 60 19 126/78 99 06/13/17 20:24 62 19 137/71 98 06/13/17 20:00 98 Room Air 06/13/17 20:00 60 06/13/17 17:08 57 06/13/17 16:44 97.6 56 16 117/71 (86) 97 06/13/17 15:54 97.8 56 16 112/62 (79) 98 I/O 06/13/17 06/13/17 06/13/17 06/14/17 06/14/17 06/14/17 07:00 15:00 23:00 07:00 15:00 23:00 Intake Total 1100 ml 500 ml 500 ml 490 ml Output Total 300 ml 250 ml Balance 1100 ml 200 ml 500 ml 240 ml Intake Oral 500 ml 240 ml IV Total 1100 ml Packed Cells 250 ml Other 500 ml Output Urine Total 300 ml 250 ml # Voids 1 # Bowel Movements 0 1 Laboratory Laboratory Tests Test 06/14/17 04:29 White Blood Count 7.7 Red Blood Count 3.66 Hemoglobin 8.9 Hematocrit 30.1 Mean Corpuscular Volume 82.4 Mean Corpuscular Hemoglobin 24.4 Mean Corpuscular Hemoglobin Concent 29.6 Red Cell Distribution Width 22.8 Platelet Count 224 Mean Platelet Volume 7.3 Neutrophils (%) (Auto) 77.9 Lymphocytes (%) (Auto) 11.1 Monocytes (%) (Auto) 6.8 Eosinophils (%) (Auto) 4.0 Basophils (%) (Auto) 0.2 Neutrophils # (Auto) 6.0 Lymphocytes # (Auto) 0.8 Monocytes # (Auto) 0.5 Eosinophils # (Auto) 0.3 Basophils # (Auto) 0.0 CBC Comment DIFF FINAL Differential Comment Blood Urea Nitrogen 102 Creatinine 6.41 Random Glucose 105 Calcium Level 7.5 Sodium Level 139 Potassium Level 5.0 Chloride Level 116 Carbon Dioxide Level 10.9 Anion Gap 12 Estimat Glomerular Filtration Rate 9 Date/Time Source Procedure Growth Status 06/12/17 02:55 Urine Catheterized Urine Urine Culture - Final NO GROWTH IN 48 HOURS. Complete Imaging Last Impressions Chest X-Ray 06/12/17 0000 Signed Impressions: Service Date/Time: Monday, June 12, 2017 03:40 - CONCLUSION: 1. Bilateral lower lobe infiltrates, left greater than right with consolidation on the left and patchy infiltrates on the right. Werner Estevez MD Abdomen/Pelvis CT 06/12/17 0000 Signed Impressions: Service Date/Time: Monday, June 12, 2017 03:57 - CONCLUSION: 1. Bilateral obstructive uropathy with point of obstruction at ureterovesical junction with associated diffuse concentric thickening of the wall of the urinary bladder. Severe bilateral hydronephrosis and hydroureter. There is a history of prostate cancer. 2. Retroperitoneal, the pelvic, and inguinal adenopathy. 3. Multifocal blastic metastatic disease. Pathologic fractures of the right pubic bone and possible pathologic fracture of the posterior column of the right acetabulum. Werner Estevez MD Physical Exam HEENT:Normocephalic; atraumatic CHEST: Even/unlabored CARDIAC: RRR. ABDOMEN: Firm, distended, nontender; no hepatosplenomegaly; bowel sounds active x 4 EXTREMITIES: BLE edema SKIN: Normal; no rash; no jaundice. JTAC: No focal deficits; alert and oriented times three. (Ayesha Negrete [facility]) Assessment and Plan Plan Assessment: - Anemia- GIB- Currently H/H 8.9/30.1 S/P 3 units PRBCs, last unit received last night. Pt reports continued dark stools, but states he feels much better after receiving the blood transfusion. EGD (06/13) --> Gastritis. Duodenitis. Duodenal ulcers. Gastric and duodenal biopsy pending. Continue PPI. - Bilateral ureteral obstruction of the distal ureters causing hydronephrosis seen on CT scan- urine continues to be red in color. - per urology - Metastatic prostate cancer with bladder mass on CT- per oncology Plan - Protonix BID - Avoid NSAIDs and ASA - Await biopsies - Monitor H/H - Transfuse as needed - Supportive care Pt has been seen and examined by myself and Dr. Bryson and this note is written on his behalf (Ayesha Negrete) Physician Comments Patient seen and examined Agree with above Continue with current supportive care Monitor labs Continue PPI Follow-up with GI post discharge No evidence of active bleeding at this point We will sign off but please reconsult as needed (Hayden Bryson MD) Ayesha Negrete Jun 14, 2017 13:34 Hayden Bryson MD Jun 14, 2017 17:43
--- NOTE | 2017-06-14 14:01 | PD.ONC.PN ---
Subjective Subjective Remarks Afebrile overnight. Patient resting in room in nad. States he is agreeable to stent placement now. Objective Data Date Time Temp Pulse Resp B/P (MAP) Pulse Ox O2 Delivery O2 Flow Rate FiO2 06/14/17 13:46 96 06/14/17 12:00 96.8 60 20 98/60 (73) 96 06/14/17 08:00 54 18 102/60 (74) 97 06/14/17 08:00 54 06/14/17 07:00 Room Air 06/14/17 05:42 96 06/14/17 04:59 59 126/74 (91) 96 06/14/17 00:25 60 20 123/78 (93) 98 06/13/17 20:40 60 19 126/78 99 06/13/17 20:24 62 19 137/71 98 06/13/17 20:00 98 Room Air 06/13/17 20:00 60 06/13/17 17:08 57 06/13/17 16:44 97.6 56 16 117/71 (86) 97 06/13/17 15:54 97.8 56 16 112/62 (79) 98 06/14/17 06/14/17 06/14/17 07:00 15:00 23:00 Intake Total 490 ml Output Total 250 ml Balance 240 ml Result Diagram: 06/14/17 0429 06/14/17 0429 Laboratory Results Laboratory Tests Test 06/14/17 04:29 White Blood Count 7.7 TH/MM3 Red Blood Count 3.66 MIL/MM3 Hemoglobin 8.9 GM/DL Hematocrit 30.1 % Mean Corpuscular Volume 82.4 FL Mean Corpuscular Hemoglobin 24.4 PG Mean Corpuscular Hemoglobin Concent 29.6 % Red Cell Distribution Width 22.8 % Platelet Count 224 TH/MM3 Mean Platelet Volume 7.3 FL Neutrophils (%) (Auto) 77.9 % Lymphocytes (%) (Auto) 11.1 % Monocytes (%) (Auto) 6.8 % Eosinophils (%) (Auto) 4.0 % Basophils (%) (Auto) 0.2 % Neutrophils # (Auto) 6.0 TH/MM3 Lymphocytes # (Auto) 0.8 TH/MM3 Monocytes # (Auto) 0.5 TH/MM3 Eosinophils # (Auto) 0.3 TH/MM3 Basophils # (Auto) 0.0 TH/MM3 CBC Comment DIFF FINAL Differential Comment Blood Urea Nitrogen 102 MG/DL Creatinine 6.41 MG/DL Random Glucose 105 MG/DL Calcium Level 7.5 MG/DL Sodium Level 139 MEQ/L Potassium Level 5.0 MEQ/L Chloride Level 116 MEQ/L Carbon Dioxide Level 10.9 MEQ/L Anion Gap 12 MEQ/L Estimat Glomerular Filtration Rate 9 ML/MIN Culture Results Microbiology Date/Time Source Procedure Growth Status 06/12/17 02:55 Urine Catheterized Urine Urine Culture - Final NO GROWTH IN 48 HOURS. Complete Administered Medications Medications (Trade) Dose Ordered Sig/Jerzy Route PRN Reason Start Time Stop Time Status Last Admin Dose Admin Sodium Chloride (NS Flush) 2 ml UNSCH PRN IV FLUSH FLUSH AFTER USING IV ACCESS 06/12/17 05:00 06/13/17 10:31 Sodium Chloride (NS Flush) 2 ml BID IV FLUSH 06/12/17 09:00 06/12/17 09:00 Ondansetron HCl (Zofran Inj) 4 mg Q6H PRN IV PUSH NAUSEA OR VOMITING 06/12/17 05:00 06/12/17 10:33 Carvedilol (Coreg) 25 mg BID PO 06/12/17 09:00 06/14/17 07:58 Tamsulosin HCl (Flomax) 0.4 mg HS PO 06/12/17 21:00 06/13/17 19:52 Ceftriaxone Sodium 1000 mg/ Sodium Chloride 100 ml @ 200 mls/hr Q24H IV 06/12/17 08:00 06/14/17 07:57 Azithromycin 500 mg/Sodium Chloride 250 ml @ 250 mls/hr Q24H IV 06/12/17 06:00 06/14/17 06:01 Sodium Chloride 1,000 ml @ 100 mls/hr Q10H IV 06/12/17 07:00 06/14/17 07:56 Sucralfate (Carafate Liq) 1 gm ACHS PO 06/12/17 12:00 06/14/17 11:56 Hydralazine HCl (Apresoline) 50 mg Q8HR PO 06/12/17 14:00 06/14/17 05:58 Hydromorphone HCl (Dilaudid Pf Inj) 2 mg Q4H PRN IV PUSH pain > 4 06/12/17 13:45 06/14/17 07:16 Alprazolam (Xanax) 0.5 mg Q8H PRN PO anxiety 06/12/17 12:00 06/14/17 10:38 Lactated Ringer's 1,000 ml @ 30 mls/hr Q24H PRN IV SEE LABEL COMMENTS 06/13/17 00:15 06/16/17 00:14 06/13/17 14:00 Acetaminophen (Tylenol) 650 mg Q4H PRN PO SEE LABEL COMMENTS 06/13/17 14:45 06/13/17 18:59 Diphenhydramine HCl (Benadryl) 25 mg Q4H PRN PO SEE LABEL COMMENTS 06/13/17 14:45 06/13/17 18:59 Pantoprazole Sodium (Protonix) 40 mg BID PO 06/13/17 21:00 06/14/17 07:58 Iron Sucrose 200 mg/Sodium Chloride 110 ml @ 110 mls/hr DAILY IV 06/13/17 22:45 06/15/17 09:59 06/14/17 07:56 Objective Remarks GENERAL: Middle aged male sitting up in chair in nad. SKIN: Warm and dry. HEAD: Atraumatic. Normocephalic. EYES: No scleral icterus. No injection or drainage. ENT: No nasal bleeding or discharge. NECK: Trachea midline. CARDIOVASCULAR: Regular rate and rhythm. RESPIRATORY: anterior campbell clear. GASTROINTESTINAL: Abdomen soft, non-tender, nondistended. MUSCULOSKELETAL: +bilateral lower extremity edema. NEUROLOGICAL: Awake and alert. normal speech. moving all extremities. Assessment/Plan Problem List: (1) Prostate cancer metastatic to bone ICD Codes: C61 - Malignant neoplasm of prostate; C79.51 - Secondary malignant neoplasm of bone Plan: --currently on hormone blockade therapy. continue Casodex while inpatient. will require systemic chemotherapy outpatient. --CT ab/pelvis-->bilateral obstructive uropathy with point of obstruction at the urethrovesical junction with diffuse concentric thickening of the wall of the urinary bladder. +severe bilateral hydronephrosis and hydroureter. Treatment History: July 2016-- Kneeland score of 4 + 4 = 8. tumor involved the prostate bilaterally and extended into the periprosthetic adipose tissue. was initiated on hormone blockade therapy with Lupron injections. --Recently--> developed progressive disease with lymphadenopathy in his right groin. CT scans of the pelvis confirmed the retroperitoneal adenopathy in the left iliac chain. +prominent lymphadenopathy in the pelvic sidewalls. + diffuse bone mets. +incomplete fracture in the left acetabulum and inferior pubic rami and fractures in the right superior inferior pubic rami+bladder wall thickening with a 2.3-cm mass. --bone scan --> widespread osseous metastatic disease involving the thoracic and lumbar spine+ sacral ala bilaterally and right intertrochanteric region. Mets in the proximal humerus and ribs. (2) Severe anemia ICD Codes: D64.9 - Anemia, unspecified Plan: --appears to be secondary to his hematuria. --no evidence of hemolysis. --s/p EGD (3) Hydronephrosis ICD Codes: N13.30 - Unspecified hydronephrosis Status: Acute Plan: --Bilateral hydronephrosis with obstruction due to malignancy, bladder mass and gross hematuria. --needs a urological evaluation and need stent placement. --will also need a cystoscopy with possible resection of the bladder mass for palliative reasons. --likely bleeding from this bladder mass. will also need to obtain a biopsy this mass. (4) Acute kidney failure ICD Codes: N17.9 - Acute kidney failure, unspecified Status: Acute Plan: --due to urinary obstruction and hydronephrosis. Assessment 57y/o male with a history of stage IV prostate cancer admitted with urinary obstruction, hematuria and severe anemia. 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 s/p right-sided orchiectomy. did not receive any adjuvant chemotherapy or radiation treatments. Diabetes type 2 History of coronary stents in 2006. Plan 1. monitor CBC 2. await urologic intervention, patient now agreeable to stent placement. Attending Statement The exam, history, and the medical decision-making described in the above note were completed with the assistance of the mid-level provider. I reviewed and agree with the findings presented. I attest that I had a [id number] encounter with the patient on the same day, and personally performed and documented my assessment and findings in the medical record prostate cancer stage IV Obstructive Uropathy and acute renal failure needs stent placement No agreeable to cystoscopy and stent placement d/w rn o/n events reviewed Problem Qualifiers (1) Acute kidney failure: Qualified Codes: N17.9 - Acute kidney failure, unspecified Agueda Armstrong Jun 14, 2017 14:01 Gonzalez Mosley MD Jun 15, 2017 01:14
--- NOTE | 2017-06-14 17:28 | HHI.PR ---
Subjective Remarks Patient has been slightly confused this afternoon - he thought it was morning. However he is aware he is going for cystoscopy tomorrow and the indication for stent placement. Patient feels his abdomen is distended and he feels that he needs to have a bowel movement. He has been having multiple small bowel movements per his nurse. Objective Vitals Vital Signs Date Time Temp Pulse Resp B/P (MAP) Pulse Ox O2 Delivery O2 Flow Rate FiO2 06/14/17 13:46 96 06/14/17 12:00 96.8 60 20 98/60 (73) 96 06/14/17 08:00 54 18 102/60 (74) 97 06/14/17 08:00 54 06/14/17 07:00 Room Air 06/14/17 05:42 96 06/14/17 04:59 59 126/74 (91) 96 06/14/17 00:25 60 20 123/78 (93) 98 06/13/17 20:40 60 19 126/78 99 06/13/17 20:24 62 19 137/71 98 06/13/17 20:00 98 Room Air 06/13/17 20:00 60 I/O 06/13/17 06/13/17 06/13/17 06/14/17 06/14/17 06/14/17 07:00 15:00 23:00 07:00 15:00 23:00 Intake Total 1100 ml 500 ml 500 ml 490 ml Output Total 300 ml 250 ml Balance 1100 ml 200 ml 500 ml 240 ml Intake Oral 500 ml 240 ml IV Total 1100 ml Packed Cells 250 ml Other 500 ml Output Urine Total 300 ml 250 ml # Voids 1 # Bowel Movements 0 1 Result Diagram: 06/14/17 0429 06/14/17 042 Objective Remarks GENERAL: Well-nourished, well-developed patient. SKIN: Warm and dry. HEAD: Normocephalic. EYES: No scleral icterus. No injection or drainage. NECK: Supple, trachea midline. No JVD or lymphadenopathy. CARDIOVASCULAR: Regular rate and rhythm without murmurs, gallops, or rubs. RESPIRATORY: Breath sounds equal bilaterally. No accessory muscle use. GASTROINTESTINAL: Bowel sounds present. Abdomen soft, non-tender, distended. EXTREMITIES: 2+ pedal edema. NEUROLOGICAL: Awake, alert, and oriented x to self, place, month however slightly confused. Non-focal. A/P Problem List: (1) GI bleed ICD Code: K92.2 - Gastrointestinal hemorrhage, unspecified Status: Acute (2) Acute on chronic renal failure ICD Code: N17.9 - Acute kidney failure, unspecified; N18.9 - Chronic kidney disease, unspecified Status: Acute (3) Diabetes mellitus, type 2 ICD Code: E11.9 - Diabetes mellitus, type 2 Status: Chronic (4) Hydronephrosis ICD Code: N13.30 - Unspecified hydronephrosis Status: Acute (5) Anemia due to acute blood loss ICD Code: D62 - Acute posthemorrhagic anemia (6) Hematuria ICD Code: R31.9 - Hematuria, unspecified Status: Acute (7) Fall ICD Code: W19.XXXA - Unspecified fall, initial encounter Status: Acute (8) Prostate cancer metastatic to bone ICD Code: C61 - Malignant neoplasm of prostate; C79.51 - Secondary malignant neoplasm of bone Assessment and Plan 1. Severe anemia/upper GI bleed s/p Transfusion 2 units PRBCs Continue Protonix drip Appreciate input from gastroenterology, s/p EGD 06/13/17 showing duodenal ulcer and gastritis Monitor H&H, transfuse when necessary hemoglobin less than 7 or active GI bleeding Also has anemia due to the hematuria 2. Acute renal failure BUN/creatinine 90/6.04 on admission Secondary to obstructive uropathy with bilateral hydronephrosis Nephrology and urology consulted, appreciate recommendations Hold all nephrotoxic drugs Monitor renal function 3. Pneumonia CXR showed bilateral lower lobe infiltrates with consolidation on the left Cont on Rocephin/Azithromycin 4. Metastatic prostate cancer Patient with known prostate ca and accompanying metastatic disease, lost to follow up Appreciate input from oncology 5. B/l Hydronephrosis For cystoscopy with stent placement tomorrow with Dr. Gutierrez 6. Hypertension Continue hydralazine 50 mg every 8 hourly and home Coreg Clonidine prn 7. CAD/Elevated troponin s/p stent in 2006 Troponin 0.07, suspect secondary to renal failure Acs ruled out 8. Confusion, mild metabolic encephalopathy Reorient Caution with opioids 9. T2DM Continue with sliding scale insulin and Accu-Cheks. Blood glucose in the 100 trend. DVT prophylaxis: Chemical anti-prophylactic contraindicated secondary to GI bleed as well as hematuria.. Bilateral SCDs Problem Qualifiers (1) GI bleed: Qualified Codes: K92.2 - Gastrointestinal hemorrhage, unspecified Robina Tillman MD Jun 14, 2017 17:28
--- NOTE | 2017-06-14 17:50 | MB ---
cc: YOLANDA GO MD DATE OF CONSULTATION 06/14/17 REASON FOR CONSULTATION Elevated BUN and creatinine and metabolic acidosis. HISTORY OF PRESENT ILLNESS This is a 57-year-old male with past medical history of adenocarcinoma of the prostate with metastasis, hypertension, diabetes mellitus, ischemic heart disease, chronic kidney disease who was admitted with complaint of nausea, vomiting and abdominal pain. I was called to see the patient because of very high BUN and creatinine. The patient has a history of chronic kidney disease. His creatinine has been around 1.8 to 1.6. This was in January and now he is admitted with creatinine of 6.0. Patient has also hematuria. He has prostate cancer with metastasis, has been following with urology, Dr. Sepulveda, and oncology. The patient was found anemic and was transfused. The hemoglobin on admission was 7.1 and then it increased to 9.2 and then dropped again and he given another unit. The patient is awake, but he is not fully oriented. He does not know exactly why he was brought into the hospital. He has history of hematemesis five days before he was admitted. He has this history of difficulty in passing urine off and on going on for some time. PAST MEDICAL HISTORY 1. Prostate cancer with metastasis 2. Hypertension, 3. Diabetes mellitus, 4. Ischemic heart disease, 5. Chronic kidney disease, 6. History of left foot osteomyelitis. PAST SURGICAL HISTORY 1. Left foot surgery for osteomyelitis 2. Cardiac catheterization 3. History of cystoscopy. REVIEW OF SYSTEMS Denies any headache or dizziness. No shortness of breath. No chest pain. He is currently on room air. He is complaining of some abdominal pain, nausea. Not eating well. There is no history of diarrhea. He currently has Celaya catheter and has bloody urine coming out. SOCIAL HISTORY There is no history of smoking or alcoholism. FAMILY HISTORY Noncontributory. ALLERGIES Allergic to multiple medications including AMLODIPINE GLYBURIDE ATORVASTATIN METFORMIN LOVASTATIN SIMVASTATIN MEDICATIONS Currently he is on following medications 1. Normal saline at 100 an hour. 2. Carafate 1 gram a.c. at bedtime. 3. Coreg 25 mg b.i.d. 4. Protonix 40 mg b.i.d. 5. Iron sucrose. 6. Flomax 0.4 mg once a day. 7. Magnesium citrate one dose was given 8. Dulcolax one dose was given. 9. Ceftriaxone 1 gram q. 24-hour. 10. Azithromycin 5 mg q. 24-hour. 11. Hydralazine 50 mg q. 8-hour. PHYSICAL EXAMINATION GENERAL: On examination the patient is awake, alert. He is sitting in the chair, oriented x2 not in distress. VITAL SIGNS: Last blood pressure is 98/68, temperature 96.8, oxygen saturation 96%. Pressure has been on the lower side since yesterday. HEENT: Pupils are mid constricted. Nonicteric sclerae, conjunctivae pale. NECK: Supple. JVD is not elevated. LUNGS: The patient has bilateral good air entry with occasional wheezing. HEART: S1, S2 regular rhythm. ABDOMEN: Slightly distended, soft, lax. There is no tenderness. Bowel sounds positive. EXTREMITIES: he has 2+ edema in the legs LABORATORY DATA WBC count 7.7, hemoglobin 8.9, platelet count of 224, neutrophils 77.9%, sodium 139. Potassium 5.0, chloride 116, bicarb 10.9, BUN 102, creatinine 6.4. Calcium 7.5, ___ was 4.0, INR 1.4. Urinalysis showing protein of 100, large leukocyte esterase, RBC 21, WBC innumerable, urine culture pending. IMAGING STUDIES The patient has a CT scan of the abdomen and pelvis done without IV contrast and it showed that he has bilateral obstructive uropathy with obstruction in the ureterovesical junction, retroperitoneal, pelvic and inguinal lymphadenopathy, multifocal blastic metastatic disease. The right pubic bone and possible pathological fracture of the column of the right acetabulum. Chest x-ray done shows bilateral lower lobe infiltrate. ASSESSMENT/PLAN 1. Acute kidney injury 2. Metabolic acidosis 3. Metastatic cancer of prostate. 4. Bilateral hydronephrosis. 5. Pneumonia. 6. Severe anemia The patient has acute kidney injury with obstructive uropathy and bilateral hydronephrosis, seen by urology. He has some bloody urine coming out in the Celaya. His bicarb is low. I will add the bicarb in the IV fluids. The patient refused for cystoscopy and ureteral stent as per urology. We will wait for further recommendation. He may benefit by doing bilateral nephrostomy. If not, then he will possibly need dialysis. Thank you for the consultation and I will follow the patient while he is in the hospital. Yolanda Go MD AQJ/SA /5:02 PM /5:24 PM
[2017-06-14] MEDS ORDERED: BISACODYL EC 5 MG TABEC PO ONE ×2 (18:00→21:00)
[2017-06-14] MEDS: TAMSULOSIN HCL 0.4 MG CAP PO SCH (22:16)
[2017-06-15] VITALS (8 sets, daily range): BP systolic 122–165; BP diastolic 61–78; PULSE 75–80; RESP 16–20; TEMP 97.7–98.9; O2SAT 95–97
[2017-06-15] MEDS: hydrALAZINE HCL 50 MG TAB PO SCH ×3 (05:11→22:00)
[2017-06-15] MEDS: AZITHROMYCIN INJ 500 MG in SODIUM CHLOR 0.9% 250 ML INJ 250 ML IV SCH (05:56)
[2017-06-15 07:30] LABS: AUTOMATED NEUTROPHIL # 5.8 TH/MM3 (1.8-7.7); BASOPHIL % 0.2 % (0.0-2.0); EOSINOPHIL # 0.2 TH/MM3 (0-0.4); EOSINOPHIL % 3.3 % (0.0-4.0); HEMATOCRIT 24.6 % (39.0-51.0); HEMO FLAGS DIFF FINAL; LYMPHOCYTE # 0.6 TH/MM3 (1.0-4.8); MEAN CELL VOLUME 77.5 FL (80.0-100.0); MEAN CORPUSCULAR HEMOGLOBIN 25.1 PG (27.0-34.0); MEAN CORPUSCULAR HGB CONC 32.3 % (32.0-36.0); MONO % 8.3 % (0.0-8.0); NEUT % 80.2 % (16.0-70.0); PLATELET COUNT 221 TH/MM3 (150-450); RED BLOOD COUNT 3.17 MIL/MM3 (4.50-5.90); RED CELL DISTRIBUTION WIDTH 23.1 % (11.6-17.2); WHITE BLOOD COUNT 7.2 TH/MM3 (4.0-11.0)
[2017-06-15 07:39] LABS: BICARBONATE 11.9 MEQ/L (21.0-32.0); POTASSIUM 4.9 MEQ/L (3.5-5.1)
[2017-06-15] MEDS: cefTRIAXone INJ 1,000 MG in SODIUM CHLORIDE 0.9% INJ 100 ML IV SCH (08:00)
[2017-06-15] MEDS: SUCRALFATE 1 GM/10 ML CUP PO SCH ×4 (08:00→21:00)
[2017-06-15] MEDS: INSULIN ASPART SUPPLEMENTAL SCALE SQ SCH ×4 (08:00→21:00)
[2017-06-15 08:23] LABS: CALCIUM-PROTEIN CORRECTED 7.4 MG/DL (8.5-10.1)
[2017-06-15] MEDS: SODIUM CHLORIDE 0.9% FLUSH 10 ML FLUSH IV FLUSH SCH ×2 (08:57→21:00)
[2017-06-15] MEDS: CARVEDILOL 12.5 MG TAB PO SCH ×2 (09:00→21:00)
[2017-06-15] MEDS: PANTOPRAZOLE SOD 40 MG DELAYED RELEASE TAB PO SCH ×2 (09:00→21:00)
[2017-06-15] MEDS: IRON SUCROSE INJ 200 MG in SODIUM CHLORIDE 0.9% INJ 100 ML IV SCH (09:54)
[2017-06-15] MEDS: SODIUM BICARBONATE 8.4% INJ 75 MEQ in SODIUM CHLOR 0.45% 1000 ML INJ 1,000 ML IV SCH ×2 (09:54→17:45)
[2017-06-15] MEDS ORDERED: FAMOTIDINE 20 MG/2 ML VIAL ONE (11:05)
[2017-06-15] MEDS ORDERED: CALCIUM GLUCONATE INJ 2 GM in DEXTROSE 5% IN WATER 100ML INJ 100 ML IV ONE ×2 (11:30)
[2017-06-15] MEDS ORDERED: MIDAZOLAM HCL 2 MG/2 ML VIAL IV ONE (12:00)
[2017-06-15] MEDS ORDERED: LACTATED RINGER'S 1000 ML INJ 1,000 ML IV ONE (12:00)
[2017-06-15] MEDS ORDERED: ePHEDrine/NS 25 MG/5 ML SYRINGE IV ONE (12:00)
[2017-06-15] MEDS ORDERED: ROCURONIUM INJ 50 MG/5 ML SYRINGE IV PUSH ONE (12:00)
[2017-06-15] MEDS ORDERED: PHENYLEPH/NS 1000 MCG/10 ML SYR IV ONE (12:00)
[2017-06-15] MEDS ORDERED: DEXAMETHASONE SOD PHOS 4 MG/ML VIAL IV ONE (12:00)
[2017-06-15] MEDS ORDERED: PROPOFOL 200 MG/20 ML AMP IV ONE (12:00)
[2017-06-15] MEDS ORDERED: PHENYLEPHRINE HCL 10 MG/ML VIAL IV ONE (12:00)
[2017-06-15] MEDS ORDERED: ONDANSETRON HCL 4 MG/2 ML VIAL IV PUSH ONE (12:00)
[2017-06-15] MEDS ORDERED: SODIUM CHLORID 0.9% 500 ML INJ 500 ML IV ONE (12:00)
[2017-06-15] MEDS ORDERED: GLYCOPYRROLATE 1 MG/5 ML SYRINGE IV PUSH ONE (12:00)
[2017-06-15] MEDS ORDERED: LIDOCAINE HCL 1% PF 5 ML SYRINGE OTHER ONE (12:00)
--- NOTE | 2017-06-15 13:03 | PD.OP ---
Operative Report Date of Surgery: Jun 15, 2017 Preoperative Diagnosis: (1) Prostate CA (2) Bilateral ureteral obstruction Postoperative Diagnosis: (1) Prostate CA (2) Bilateral ureteral obstruction Procedure: Cystoscopy and palliative partial transurethral resection of bladder mass consistent with advanced prostate cancer. Attempted placement bilateral ureteral catheters. Anesthesia: General Surgeon: Casey Gutierrez Marketing Database Analyst(s): None Operation and Findings: Indication for procedures: Case of a pleasant 57-year-old gentleman with advanced prostate cancer who has been having problems with ongoing gross hematuria and recently discovered to have elevation in serum creatinine related to bilateral distal ureteral obstruction. Patient presents now for cystoscopy, bladder biopsy and placement of bilateral ureteral catheters. Operative procedure in detail: Patient was brought to operating suite and placed supine on the OR table. He was then placed on general anesthesia. He was then repositioned in the dorsal lithotomy position and prepped and draped in normal sterile fashion. After an appropriate timeout was undertaken, I proceeded with cystoscopic evaluation utilizing the rigid cystoscope with a 20 Liberian sheath and 30 lens. The urethra was patent without stricture formation. Upon entering the prostatic urethra there was a frondular tissue extending from all scott of the prostate and further passage of the scope demonstrated irregular heaped up tissue with some frondular components totally obscuring the trigone and part of the posterior bladder wall. This was consistent with advancement of the patient's known prostate cancer. There was some oozing of blood noted from this tissue and initially this was addressed with the Bugbee electrode. I spent some time trying to locate the ureteral orifices however due to the significant distortion of the anatomy from the tumor mass is was not possible. I then utilized the resectoscope with a 24 Liberian cutting loop and partially resected some of this tumor mass for palliation and hemostasis. Tissue was recovered utilizing the NuvoMedk evacuator and sent off to pathology. A 20 Liberian 10 cc Celaya was placed and connected to gravity drainage with light pink output. Just prior to recovering the patient from the anesthesia, he was noted to be bradycardic and hypotensive and received intravenous epinephrine as administered by anesthesia to normalize his blood pressure and pulse. Patient will require placement of bilateral nephrostomy tubes by interventional radiology when medically stable. Casey Gutierrez MD Jun 15, 2017 13:03
[2017-06-15] MEDS ORDERED: NITROGLYCERIN INJ 5 ML ONE (13:07)
[2017-06-15] MEDS ORDERED: DO NOT ADM ANY ANTICOAGULANT DRUGS PRN (13:44)
[2017-06-15 14:15] LABS: REVIEW FLAG FINAL
--- NOTE | 2017-06-15 14:46 | PD.ONC.PN ---
Subjective Subjective Remarks Afebrile overnight. Patient seen in PACU. He is in good spirits and pleasantly confused. Operative note reviewed. Objective Data Date Time Temp Pulse Resp B/P (MAP) Pulse Ox O2 Delivery O2 Flow Rate FiO2 06/15/17 14:25 96 06/15/17 10:10 96 Room Air 06/15/17 10:06 78 06/15/17 07:44 98.5 75 20 122/63 (82) 97 06/15/17 04:38 98.9 77 20 147/73 (97) 96 06/15/17 00:00 98.6 80 19 144/74 (97) 96 06/14/17 20:00 66 06/14/17 20:00 97.7 69 18 137/78 (97) 98 06/14/17 19:24 Room Air 06/14/17 18:00 98.0 67 18 112/67 (82) 98 06/15/17 06/15/17 06/15/17 07:00 15:00 23:00 Intake Total 240 ml 1125 ml Output Total 550 ml 20 ml Balance -310 ml 1105 ml Result Diagram: 06/15/17 1357 06/15/17 0624 Laboratory Results Laboratory Tests Test 06/15/17 06:24 06/15/17 13:57 White Blood Count 7.2 TH/MM3 Red Blood Count 3.17 MIL/MM3 Hemoglobin 8.0 GM/DL 7.7 GM/DL Hematocrit 24.6 % 24.0 % Mean Corpuscular Volume 77.5 FL Mean Corpuscular Hemoglobin 25.1 PG Mean Corpuscular Hemoglobin Concent 32.3 % Red Cell Distribution Width 23.1 % Platelet Count 221 TH/MM3 Mean Platelet Volume 7.4 FL Neutrophils (%) (Auto) 80.2 % Lymphocytes (%) (Auto) 8.0 % Monocytes (%) (Auto) 8.3 % Eosinophils (%) (Auto) 3.3 % Basophils (%) (Auto) 0.2 % Neutrophils # (Auto) 5.8 TH/MM3 Lymphocytes # (Auto) 0.6 TH/MM3 Monocytes # (Auto) 0.6 TH/MM3 Eosinophils # (Auto) 0.2 TH/MM3 Basophils # (Auto) 0.0 TH/MM3 CBC Comment DIFF FINAL Differential Comment Blood Urea Nitrogen 103 MG/DL Creatinine 6.81 MG/DL Random Glucose 114 MG/DL Total Protein 6.6 GM/DL Calcium Level 7.1 MG/DL Phosphorus Level 6.7 MG/DL Sodium Level 140 MEQ/L Potassium Level 4.9 MEQ/L Chloride Level 114 MEQ/L Carbon Dioxide Level 11.9 MEQ/L Anion Gap 14 MEQ/L Estimat Glomerular Filtration Rate 8 ML/MIN Protein Corrected Calcium 7.4 MG/DL Administered Medications Medications (Trade) Dose Ordered Sig/Jerzy Route PRN Reason Start Time Stop Time Status Last Admin Dose Admin Sodium Chloride (NS Flush) 2 ml UNSCH PRN IV FLUSH FLUSH AFTER USING IV ACCESS 06/12/17 05:00 06/13/17 10:31 Sodium Chloride (NS Flush) 2 ml BID IV FLUSH 06/12/17 09:00 06/14/17 22:16 Ondansetron HCl (Zofran Inj) 4 mg Q6H PRN IV PUSH NAUSEA OR VOMITING 06/12/17 05:00 06/12/17 10:33 Insulin Aspart (NovoLOG SUPPLEMENTAL SCALE) 1 ACHS SLIDING SCALE SQ 06/12/17 08:00 06/14/17 17:59 Carvedilol (Coreg) 25 mg BID PO 06/12/17 09:00 06/15/17 09:00 Tamsulosin HCl (Flomax) 0.4 mg HS PO 06/12/17 21:00 06/14/17 22:16 Ceftriaxone Sodium 1000 mg/ Sodium Chloride 100 ml @ 200 mls/hr Q24H IV 06/12/17 08:00 06/14/17 07:57 Azithromycin 500 mg/Sodium Chloride 250 ml @ 250 mls/hr Q24H IV 06/12/17 06:00 06/15/17 05:56 Sucralfate (Carafate Liq) 1 gm ACHS PO 06/12/17 12:00 06/14/17 22:15 Hydralazine HCl (Apresoline) 50 mg Q8HR PO 06/12/17 14:00 06/14/17 22:16 Hydromorphone HCl (Dilaudid Pf Inj) 2 mg Q4H PRN IV PUSH pain > 4 06/12/17 13:45 06/14/17 07:16 Alprazolam (Xanax) 0.5 mg Q8H PRN PO anxiety 06/12/17 12:00 06/14/17 10:38 Lactated Ringer's 1,000 ml @ 30 mls/hr Q24H PRN IV SEE LABEL COMMENTS 06/13/17 00:15 06/16/17 00:14 06/13/17 14:00 Acetaminophen (Tylenol) 650 mg Q4H PRN PO SEE LABEL COMMENTS 06/13/17 14:45 06/13/17 18:59 Diphenhydramine HCl (Benadryl) 25 mg Q4H PRN PO SEE LABEL COMMENTS 06/13/17 14:45 06/13/17 18:59 Pantoprazole Sodium (Protonix) 40 mg BID PO 06/13/17 21:00 06/14/17 22:16 Sodium Bicarbonate 75 meq/Sodium Chloride 1,075 ml @ 100 mls/hr [id number] IV 06/15/17 07:00 06/15/17 09:54 Objective Remarks GENERAL: Pleasant middle aged male sitting up in bed in [facility]. SKIN: Warm and dry. HEAD: Normocephalic. EYES: No injection or drainage. NECK: Supple, trachea midline. CARDIOVASCULAR: +S1/S2 RESPIRATORY: anterior campbell clear GASTROINTESTINAL: Abdomen soft, non-tender, nondistended. EXTREMITIES: No cyanosis. +peripheral edema NEUROLOGICAL: awake and alert, normal speech. Assessment/Plan Problem List: (1) Prostate cancer metastatic to bone ICD Codes: C61 - Malignant neoplasm of prostate; C79.51 - Secondary malignant neoplasm of bone Plan: --currently on hormone blockade therapy. continue Casodex while inpatient. will require systemic chemotherapy outpatient. --CT ab/pelvis-->bilateral obstructive uropathy with point of obstruction at the urethrovesical junction with diffuse concentric thickening of the wall of the urinary bladder. +severe bilateral hydronephrosis and hydroureter. Treatment History: July 2016-- Yesenia score of 4 + 4 = 8. tumor involved the prostate bilaterally and extended into the periprosthetic adipose tissue. was initiated on hormone blockade therapy with Lupron injections. --Recently--> developed progressive disease with lymphadenopathy in his right groin. CT scans of the pelvis confirmed the retroperitoneal adenopathy in the left iliac chain. +prominent lymphadenopathy in the pelvic sidewalls. + diffuse bone mets. +incomplete fracture in the left acetabulum and inferior pubic rami and fractures in the right superior inferior pubic rami+bladder wall thickening with a 2.3-cm mass. --bone scan --> widespread osseous metastatic disease involving the thoracic and lumbar spine+ sacral ala bilaterally and right intertrochanteric region. Mets in the proximal humerus and ribs. (2) Severe anemia ICD Codes: D64.9 - Anemia, unspecified Plan: --appears to be secondary to his hematuria. --no evidence of hemolysis. --s/p EGD (3) Hydronephrosis ICD Codes: N13.30 - Unspecified hydronephrosis Status: Acute Plan: --Bilateral hydronephrosis with obstruction due to malignancy, bladder mass and gross hematuria. --attempted ureteral stent placement on 06/15 was unsuccessful due tumor burden. patient will need nephrostomy tube placement in invasive radiology --s/p biopsy of bladder mass, awaiting pathology. (4) Acute kidney failure ICD Codes: N17.9 - Acute kidney failure, unspecified Status: Acute Plan: --due to urinary obstruction and hydronephrosis. Assessment 57y/o male with a history of stage IV prostate cancer admitted with urinary obstruction, hematuria and severe anemia. 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 s/p right-sided orchiectomy. did not receive any adjuvant chemotherapy or radiation treatments. Diabetes type 2 History of coronary stents in 2006. Plan 1. monitor CBC 2. will need nephrostomy tube placement in invasive radiology Attending Statement The exam, history, and the medical decision-making described in the above note were completed with the assistance of the mid-level provider. I reviewed and agree with the findings presented. I attest that I had a [id number] encounter with the patient on the same day, and personally performed and documented my assessment and findings in the medical record Problem Qualifiers (1) Acute kidney failure: Qualified Codes: N17.9 - Acute kidney failure, unspecified Agueda Armstrong Jun 15, 2017 14:46 Gonzalez Mosley MD Jun 16, 2017 02:55
--- NOTE | 2017-06-15 15:02 | EKG ---
Date Performed: 06/15/2017 Time Performed: 13:17:13 PTAGE: 57 years EKG: Sinus rhythm POSSIBLE LEFT ATRIAL ENLARGEMENT ST/T ABNORMALITY, CONSIDER ANTEROLATERAL ISCHEMIA ABNORMAL ECG PREVIOUS TRACING : 06/12/2017 01.50 Compared to previous tracing, anterolateral T wave inversio n is now more pronounced. DOCTOR: Nikita Bradshaw Interpretating Date/Time 06/15/2017 15:01:01
--- NOTE | 2017-06-15 15:07 | HHI.PR ---
Subjective Remarks Patient seen in PACU after anesthesia. He is quite confused. Unfortunately ureteral stents were unable to be placed and he will require nephrostomy tubes. Objective Vitals Vital Signs Date Time Temp Pulse Resp B/P (MAP) Pulse Ox O2 Delivery O2 Flow Rate FiO2 06/15/17 14:37 97.7 75 20 122/61 96 06/15/17 14:25 96 06/15/17 10:10 96 Room Air 06/15/17 10:06 78 06/15/17 07:44 98.5 75 20 122/63 (82) 97 06/15/17 04:38 98.9 77 20 147/73 (97) 96 06/15/17 00:00 98.6 80 19 144/74 (97) 96 06/14/17 20:00 66 06/14/17 20:00 97.7 69 18 137/78 (97) 98 06/14/17 19:24 Room Air 06/14/17 18:00 98.0 67 18 112/67 (82) 98 I/O 06/14/17 06/14/17 06/14/17 06/15/17 06/15/17 06/15/17 06:59 14:59 22:59 06:59 14:59 22:59 Intake Total 490 ml 400 ml 240 ml 1125 ml Output Total 250 ml 1050 ml 20 ml Balance 240 ml 400 ml -810 ml 1105 ml Intake Oral 240 ml 400 ml 240 ml IV Total 100 ml Packed Cells 250 ml Blood Product IV Normal Saline Flush 25 ml Other 1000 ml Output Urine Total 250 ml 1050 ml Estimated Blood Loss 20 ml # Voids 1 Result Diagram: 06/15/17 1357 06/15/17 0624 Objective Remarks GENERAL: Well-nourished, well-developed patient. SKIN: Warm and dry. HEAD: Normocephalic. EYES: No scleral icterus. No injection or drainage. NECK: Supple, trachea midline. No JVD or lymphadenopathy. CARDIOVASCULAR: Regular rate and rhythm without murmurs, gallops, or rubs. RESPIRATORY: Breath sounds equal bilaterally. No accessory muscle use. GASTROINTESTINAL: Bowel sounds present. Abdomen soft, non-tender, distended. EXTREMITIES: 2+ pedal edema. NEUROLOGICAL: Awake, alert, very confused but pleasant A/P Problem List: (1) GI bleed ICD Code: K92.2 - Gastrointestinal hemorrhage, unspecified Status: Acute (2) Acute on chronic renal failure ICD Code: N17.9 - Acute kidney failure, unspecified; N18.9 - Chronic kidney disease, unspecified Status: Acute (3) Diabetes mellitus, type 2 ICD Code: E11.9 - Diabetes mellitus, type 2 Status: Chronic (4) Hydronephrosis ICD Code: N13.30 - Unspecified hydronephrosis Status: Acute (5) Anemia due to acute blood loss ICD Code: D62 - Acute posthemorrhagic anemia (6) Hematuria ICD Code: R31.9 - Hematuria, unspecified Status: Acute (7) Fall ICD Code: W19.XXXA - Unspecified fall, initial encounter Status: Acute (8) Prostate cancer metastatic to bone ICD Code: C61 - Malignant neoplasm of prostate; C79.51 - Secondary malignant neoplasm of bone Assessment and Plan 1. Severe anemia d/t hematuria, gi bleed s/p EGD 06/13/17 showing duodenal ulcer and gastritis s/p Transfusion 2 units PRBCs Continue Protonix Appreciate input from gastroenterology, Monitor H&H, transfuse when necessary hemoglobin less than 7 or active GI bleeding 2. Acute renal failure, obstructive - worsening BUN/creatinine 90/6.04 on admission Secondary to obstructive uropathy with bilateral hydronephrosis Nephrology and urology consulted, appreciate recommendations Hold all nephrotoxic drugs Monitor renal function cont kumar cath 3. Pneumonia CXR showed bilateral lower lobe infiltrates with consolidation on the left Cont on Rocephin/Azithromycin 4. Metastatic prostate cancer Patient with known prostate ca and accompanying metastatic disease, lost to follow up Appreciate input from oncology 5. B/l Hydronephrosis S/p Cystoscopy and palliative partial transurethral resection of bladder mass consistent with advanced prostate cancer. Attempted placement bilateral ureteral catheters. IR consulted for nephrostomy tubes 6. Hypertension Continue hydralazine 50 mg every 8 hourly and home Coreg Clonidine prn 7. CAD/Elevated troponin s/p stent in 2006 Troponin 0.07, suspect secondary to renal failure Acs ruled out 8. Confusion, metabolic/uremic encephalopathy Reorient Caution with opioids 9. T2DM Continue with sliding scale insulin and Accu-Cheks. Blood glucose in the 100 trend. DVT prophylaxis: Chemical anti-prophylactic contraindicated secondary to GI bleed as well as hematuria.. Bilateral SCDs Problem Qualifiers (1) GI bleed: Qualified Codes: K92.2 - Gastrointestinal hemorrhage, unspecified Robina Tillman MD Jun 15, 2017 15:07
--- NOTE | 2017-06-15 15:38 | HHI.NPPN ---
Subjective History of Present Illness 7-year-old male with past medical history of adenocarcinoma of the prostate with metastasis, hypertension, diabetes mellitus, ischemic heart disease, chronic kidney disease who was admitted with complaint of nausea, vomiting and abdominal pain. I was called to see the patient because of very high BUN and creatinine. The patient has a history of chronic kidney disease. His creatinine has been around 1.8 to 1.6. Additional Remarks Patient seen in recovery room , alert, remain confused, not in distress, getting blood transfusion. Review of Systems General General Remarks Unable to give much review of system. Objective Data Data 06/15/17 06/16/17 19:00 07:00 Intake Total 1125 ml Output Total 20 ml Balance 1105 ml IV Total 100 ml Blood Product IV Normal Saline Flush 25 ml Other 1000 ml Estimated Blood Loss 20 ml Vital Signs Date Time Temp Pulse Resp B/P (MAP) Pulse Ox O2 Delivery O2 Flow Rate FiO2 06/15/17 14:37 97.7 75 20 122/61 96 06/15/17 14:25 96 06/15/17 10:10 96 Room Air 06/15/17 10:06 78 06/15/17 07:44 98.5 75 20 122/63 (82) 97 06/15/17 04:38 98.9 77 20 147/73 (97) 96 06/15/17 00:00 98.6 80 19 144/74 (97) 96 06/14/17 20:00 66 06/14/17 20:00 97.7 69 18 137/78 (97) 98 06/14/17 19:24 Room Air 06/14/17 18:00 98.0 67 18 112/67 (82) 98 -: 06/15/17 1357 06/15/17 0624 Physical Exam General Appearance: No Acute Distress, Comfortable Eyes Eye Exam: Pupils Equal Neck Neck Exam: Neck Supple, Trachea Midline Pulmonary Resp Exam: Breath Sounds Equal, No Distress, Rhonchi Cardiology CV Exam: Regular, Normal Sinus Rhythm Gastrointestinal/Abdomen GI Exam: Soft, Non-Tender, Bowel Sounds Present Extremeties Extremities Exam: Trace Edema Neurologic Neuro Exam: Alert, Awake Assessment/Plan Assessment Summary: MIRYAM/Acute Renal Failure, Hypertension Electrolyte Assessment: Metabolic Acidosis Problem List: (1) Benign essential hypertension Status: Chronic (2) CAD (coronary artery disease) ICD Codes: I25.10 - Atherosclerotic heart disease of [place] coronary artery without angina pectoris Status: Chronic (3) History of CHF (congestive heart failure) ICD Codes: Z86.79 - Personal history of other diseases of the circulatory system Status: Chronic (4) Diabetes mellitus, type 2 ICD Codes: E11.9 - Diabetes mellitus, type 2 Status: Chronic (5) Prostate CA ICD Codes: C61 - Malignant neoplasm of prostate (6) Hematuria ICD Codes: R31.9 - Hematuria, unspecified Status: Acute (7) Acute on chronic renal failure ICD Codes: N17.9 - Acute kidney failure, unspecified; N18.9 - Chronic kidney disease, unspecified Status: Acute Plan Patient has chronic kidney disease and develop MIRYAM. Most likely due to obstructive uropathy. Had Cystoscopy done. Has bladder tumor removed. Unable to get stent in the ureter. He possibly will need bilateral Nephrostomy. Follow the urine out put and BMP. No urgent need for Dialysis, continue IVF with NaHco3. Raquel Allen MD Jun 15, 2017 15:38
--- NOTE | 2017-06-15 15:48 | HHI.PR ---
Objective Vital Signs Vital Signs Date Time Temp Pulse Resp B/P (MAP) Pulse Ox O2 Delivery O2 Flow Rate FiO2 06/15/17 14:37 97.7 75 20 122/61 96 06/15/17 14:25 96 06/15/17 10:10 96 Room Air 06/15/17 10:06 78 06/15/17 07:44 98.5 75 20 122/63 (82) 97 06/15/17 04:38 98.9 77 20 147/73 (97) 96 06/15/17 00:00 98.6 80 19 144/74 (97) 96 06/14/17 20:00 66 06/14/17 20:00 97.7 69 18 137/78 (97) 98 06/14/17 19:24 Room Air 06/14/17 18:00 98.0 67 18 112/67 (82) 98 Intake & Output 06/15/17 06/15/17 06:59 18:59 Intake Total 640 ml 1125 ml Output Total 1050 ml 20 ml Balance -410 ml 1105 ml Intake Oral 640 ml IV Total 100 ml Blood Product IV Normal Saline Flush 25 ml Other 1000 ml Output Urine Total 1050 ml Estimated Blood Loss 20 ml Result Diagram: 06/15/17 1357 06/15/17 0624 Objective Remarks Spoke with Dr Alessandro Pope of interventional radiology and requested emergent placement of bilateral nephrostomy tubes today. I was unable to pass retrograde stents due to progression of the prostate cancer with obliteration of the ureteral orifices. Medications and IVs Current Medications Medications (Trade) Dose Ordered Sig/Jerzy Route Start Time Stop Time Status Last Admin (NS Flush) 2 ml UNSCH PRN IV FLUSH 06/12/17 05:00 06/13/17 10:31 (NS Flush) 2 ml BID IV FLUSH 06/12/17 09:00 06/14/17 22:16 (Zofran Inj) 4 mg Q6H PRN IV PUSH 06/12/17 05:00 06/12/17 10:33 (D50w (Vial) Inj) 50 ml UNSCH PRN IV PUSH 06/12/17 05:30 (Glucagon Inj) 1 mg UNSCH PRN OTHER 06/12/17 05:30 (NovoLOG SUPPLEMENTAL SCALE) 1 ACHS SLIDING SCALE SQ 06/12/17 08:00 06/14/17 17:59 (Coreg) 25 mg BID PO 06/12/17 09:00 06/15/17 09:00 (Flomax) 0.4 mg HS PO 06/12/17 21:00 06/14/17 22:16 Ceftriaxone Sodium 1000 mg/ Sodium Chloride 100 ml @ 200 mls/hr Q24H IV 06/12/17 08:00 06/14/17 07:57 Azithromycin 500 mg/Sodium Chloride 250 ml @ 250 mls/hr Q24H IV 06/12/17 06:00 06/15/17 05:56 (Duoneb Neb) 1 ampule Q4HR NEB PRN NEB 06/12/17 05:45 (Catapres) 0.1 mg Q6H PRN PO 06/12/17 06:00 (Carafate Liq) 1 gm ACHS PO 06/12/17 12:00 06/14/17 22:15 (Apresoline) 50 mg Q8HR PO 06/12/17 14:00 06/14/17 22:16 (Dilaudid Pf Inj) 2 mg Q4H PRN IV PUSH 06/12/17 13:45 06/14/17 07:16 (Xanax) 0.5 mg Q8H PRN PO 06/12/17 12:00 06/14/17 10:38 Lactated Ringer's 1,000 ml @ 30 mls/hr Q24H PRN IV 06/13/17 00:15 06/16/17 00:14 06/13/17 14:00 Sodium Chloride 500 ml @ 30 mls/hr [id number] PRN IV 06/13/17 00:15 06/16/17 00:14 (Lopressor) 25 mg NEW[place]ERSON PRN PO 06/13/17 00:15 06/16/17 00:14 (Betadine 5% Antisepsis Kit) 1 applic NEWSPERSON PRN EACH NARE 06/13/17 00:15 06/16/17 00:14 (Chlorhexidine 2% Cloth) 3 pack NEWSPERSON PRN TOPICAL 06/13/17 00:15 06/16/17 00:14 (Tylenol) 650 mg Q4H PRN PO 06/13/17 14:45 06/13/17 18:59 (Benadryl) 25 mg Q4H PRN PO 06/13/17 14:45 06/13/17 18:59 (Protonix) 40 mg BID PO 06/13/17 21:00 06/14/17 22:16 Sodium Bicarbonate 75 meq/Sodium Chloride 1,075 ml @ 100 mls/hr [id number] IV 06/15/17 07:00 06/15/17 09:54 Miscellaneous Information ALL NURSING DEPARTME... UNSCH PRN .XX 06/15/17 13:44 06/16/17 13:43 Assessment and Plan Assessment and Plan Urologic impression: #1 progression of metastatic prostate cancer #2 bilateral hydroureteronephrosis related to prostate cancer involving the distal ureters #3 bladder mass seen on CT scanning and cystoscopy likely related to the prostate cancer #4 hematuria related to the prostate cancer Recommendations: #1 continue with indwelling Celaya catheter to gravity drainage and irrigate when necessary #[address] bilateral nephrostomy tubes on an emergent basis. #3 ongoing medical management as per oncology #4 patient should continue to follow up with his established urologist Dr. Sepulveda after hospital discharge. Casey Gutierrez MD Jun 15, 2017 15:48
[2017-06-15] MEDS ORDERED: *morphine SULFATE 8 MG/ML PERIprocedure ONLY ONE (15:49)
--- NOTE | 2017-06-15 16:01 | PD.RAD ---
Radiology Note Patient with hx of prostate Ca and bilateral severe hydronephrosis. Attempted stent placement by Urology unsuccessful. Bilateral PCN tubes requested. However, patient not consentable due to recent anesthesia. No identifiable family members per chart or floor nurse except an ex- who does not have power of deputy prosecuting attorney. Drs. Gutierrez, Urology and Jerrell, Desk Attendant/Hospitalist, have declared the procedure emergent to preserve renal function. Will proceed with requested procedure. Alessandro Pope MD Jun 15, 2017 16:01
[2017-06-15] MEDS ORDERED: MIDAZOLAM HCL 2 MG/2 ML VIAL ONE (17:21)
--- NOTE | 2017-06-15 17:22 | MB ---
cc: KATHERIN CARDENAS M.D. DATE OF CONSULTATION: 06/15/2017 REASON FOR CONSULTATION: Hypotension, bradycardia, history of coronary artery disease. HISTORY OF PRESENT ILLNESS The patient is somewhat confused. He can answer most questions appropriately. He is a 57-year-old white male with a history of metastatic prostate cancer, coronary artery disease, severe ischemic cardiomyopathy, diabetes, and hypertension who was initially admitted to the hospital with nausea, vomiting, abdominal pain. He was found to be severely anemic. Further workup has revealed bilateral obstructive uropathy, severe bilateral hydronephrosis, severe bilateral hydroureter, duodenal ulcer and gastritis. Today he underwent cystoscopy with palliative partial resection of a bladder mass and unsuccessful ureteral stent placement. Sometime after the procedure, he developed bradycardia and hypotension, responsive to epinephrine. At this time he is hypertensive (160/90). The patient states he does have occasional left parasternal chest discomfort described as "light pressure." The patient states the chest discomforts never lasts more than a few minutes. He denies any chest pain at this moment. He also denies shortness of breath, dizziness, syncope, near-syncope, palpitations, pedal edema, paroxysmal nocturnal dyspnea. PAST MEDICAL HISTORY 1. Coronary artery disease status post stent of the ostium of the LAD by Dr. Last Scott 05/12/2008 using a 3.5 x 18 mm Cypher stent. 2. Congestive heart failure and severe ischemic cardiomyopathy with ejection fraction of 10-15% demonstrated by cardiac catheterization and echo in May 2008. As far as I can tell he has had no reevaluation of his cardiomyopathy since that time. 3. Diabetes 4. Hypertension since 1980. 5. Osteomyelitis of the left foot July 2016. 6. Metastatic prostate cancer diagnosed earlier this year. PAST SURGICAL HISTORY 1. 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 Left foot surgery 07/02/2016 for osteomyelitis. 3. Cystoscopy with palliative partial resection of a bladder mass today. MEDICATIONS Cardiac medications at home; 1. Coreg 25 mg b.i.d. 2. Aspirin 81 mg daily. 3. Lisinopril 40 mg b.i.d. Current cardiac medications here in the hospital hydralazine 50 mg po q.8 h. Carvedilol 25 mg po b.i.d. ALLERGIES AMLODIPINE ATORVASTATIN GLYBURIDE METFORMIN PRAVASTATIN SIMVASTATIN FAMILY HISTORY Noncontributory. SOCIAL HISTORY The patient denies any history of alcohol, tobacco abuse. REVIEW OF SYSTEMS Review of systems as in the history of present illness otherwise negative or noncontributory also currently denies headache, abdominal pain, melena, bright red blood per rectum, nausea. PHYSICAL EXAMINATION VITAL SIGNS: Blood pressure 165/90 with a pulse of 80, respirations 20. IN GENERAL: In general he is a well-developed, well-nourished white male in no acute distress HEAD, EYES, EARS, NOSE, AND THROAT: Jugular venous pressure is normal. Carotid pulses are 2+ bilaterally and without bruits. CHEST: Examination of the chest reveals clear lung [place] CARDIOVASCULAR SYSTEM: Cardiac examination he has a regular rhythm and rate without S3-S4 or murmur. ABDOMEN: On abdominal examination he has a soft, nontender abdomen. Bowel sounds are present. There is no definite had a splenomegaly. EXTREMITIES: Examination of the extremities reveals no clubbing, cyanosis. There is 1 to 2+ pretibial edema. LABORATORY DATA: WBC 7.2, hemoglobin 7.7, platelets 221, potassium 4.9, BUN 103, creatinine 6.81, INR 1.4. RADIOLOGIC: Chest x-ray on admission showed bilateral lower lobe infiltrates, left greater than right with consolidation of the left and patchy infiltrates on the right. IMPRESSION Transient hypotension and bradycardia in this 57-year-old white male status post cystoscopy and partial resection of a bladder mass today, with a history of coronary artery disease, severe dilated cardiomyopathy, diabetes, hypertension, metastatic prostate cancer. At this time he is hypertensive. History is somewhat difficult to elicit from the patient as he is somewhat confused. He does relate a recent history of intermittent chest pain. His EKG does also show anterolateral ischemic ST and T-wave changes. Needless to say he is not a candidate for aggressive or invasive cardiac evaluation. Unfortunately he is also not a candidate for antiplatelet/anticoagulation therapy. RECOMMENDATIONS 1. Overall conservative cardiac management. 2. Continue his Coreg and hydralazine; will empirically add an oral nitrate. 3. Check a 2-D echo to reassess his left ventricular function. 4. Repeat his EKG later today and in the morning. MD KEVIN Monet/jesus /4:27 PM /5:09 PM REG
[2017-06-15] MEDS ORDERED: LORazepam 2 MG/ML VIAL ONE (17:51)
--- NOTE | 2017-06-15 18:29 | PD.RAD ---
Post Procedure Progress Note Pre Procedure Diagnosis: (1) UTI (urinary tract infection) (2) Prostate cancer metastatic to bone (3) Hydronephrosis Post Procedure Diagnosis: (1) Urinary retention (2) Hydronephrosis (3) Acute kidney failure (4) Prostate cancer metastatic to bone (5) UTI (urinary tract infection) Procedure Date: Jun 15, 2017 Supervising Radiologist: Alessandro Pope Proceduralist/Assist: Bev Chicas, RT(R)(), Andrew Griggs RT(R) Anesthesia: Local, Analgesia, Conscious Sedation Plan of Activity Patient to Unit: PACU Patient Condition: Good See PACS Report for procedural detail/treatment Drainage Procedure Procedure 1 Imaging Guidance: Fluoroscopy, Ultrasound Side: Bilateral Procedure Type: Nephrostomy Procedure: Placement Romansh: 10 Drainage: Clyde drainage Fluid Description: Angel Messer Scott D. MD Jun 15, 2017 18:28
[2017-06-15] MEDS: ISOSORBIDE MONONITRATE 60 MG TAB PO SCH (19:00)
[2017-06-15] MEDS ORDERED: IOHEXOL 350 MG/ML 50 ML BTL (for RAD DIAG) OTHER ONE (19:08)
[2017-06-15] MEDS: TAMSULOSIN HCL 0.4 MG CAP PO SCH (21:00)
--- NOTE | 2017-06-15 21:58 | EKG ---
Date Performed: 06/15/2017 Time Performed: 21:33:41 PTAGE: 57 years EKG: Sinus rhythm POSSIBLE LEFT ATRIAL ENLARGEMENT POOR R WAVE PROGRESSION ST/T-WAVE ABNORMALITY, CONSIDER LATERAL ISC HEMIA ABNORMAL ECG PREVIOUS TRACING : 06/15/2017 13.17 No change from previous tracing noted. DOCTOR: Nikita Bradshaw Interpretating Date/Time 06/15/2017 21:57:51
[2017-06-15] MEDS ORDERED: HALOPERIDOL LACTATE 5 MG/ML AMP IM ONE (23:00)
[2017-06-16] VITALS (10 sets, daily range): BP systolic 138–168; BP diastolic 67–88; PULSE 68–81; RESP 16–20; TEMP 97.6–98.3; O2SAT 95–98
[2017-06-16] MEDS ORDERED: HALOPERIDOL LACTATE 5 MG/ML AMP IM ONE (03:00)
[2017-06-16] MEDS: SODIUM BICARBONATE 8.4% INJ 75 MEQ in SODIUM CHLOR 0.45% 1000 ML INJ 1,000 ML IV SCH ×2 (04:30→13:24)
[2017-06-16] MEDS: AZITHROMYCIN INJ 500 MG in SODIUM CHLOR 0.9% 250 ML INJ 250 ML IV SCH (05:34)
[2017-06-16] MEDS: hydrALAZINE HCL 50 MG TAB PO SCH ×3 (06:00→20:32)
[2017-06-16 07:29] LABS: AUTOMATED NEUTROPHIL # 5.9 TH/MM3 (1.8-7.7); BASOPHIL % 0.2 % (0.0-2.0); EOSINOPHIL % 0.2 % (0.0-4.0); HEMATOCRIT 29.9 % (39.0-51.0); LYMPH % 6.8 % (9.0-44.0); LYMPHOCYTE # 0.5 TH/MM3 (1.0-4.8); MEAN CELL VOLUME 80.4 FL (80.0-100.0); MEAN CORPUSCULAR HEMOGLOBIN 25.8 PG (27.0-34.0); MEAN CORPUSCULAR HGB CONC 32.1 % (32.0-36.0); MONO % 7.5 % (0.0-8.0); NEUT % 85.3 % (16.0-70.0); PLATELET COUNT 197 TH/MM3 (150-450); RED BLOOD COUNT 3.71 MIL/MM3 (4.50-5.90); WHITE BLOOD COUNT 6.9 TH/MM3 (4.0-11.0)
[2017-06-16 07:37] LABS: HEMO FLAGS AUTO DIFF
[2017-06-16 07:54] LABS: BICARBONATE 12.7 MEQ/L (21.0-32.0); POTASSIUM 5.5 MEQ/L (3.5-5.1)
[2017-06-16] MEDS: INSULIN ASPART SUPPLEMENTAL SCALE SQ SCH ×4 (08:00→20:40)
[2017-06-16] MEDS: ISOSORBIDE MONONITRATE 60 MG TAB PO SCH (08:25)
[2017-06-16] MEDS: cefTRIAXone INJ 1,000 MG in SODIUM CHLORIDE 0.9% INJ 100 ML IV SCH (08:25)
[2017-06-16] MEDS: PANTOPRAZOLE SOD 40 MG DELAYED RELEASE TAB PO SCH ×2 (08:25→20:32)
[2017-06-16] MEDS: CARVEDILOL 12.5 MG TAB PO SCH ×2 (08:26→20:32)
[2017-06-16] MEDS: SUCRALFATE 1 GM/10 ML CUP PO SCH ×4 (08:26→20:32)
[2017-06-16] MEDS: ALPRAZolam 0.5 MG TAB PO PRN ×2 (08:26→17:25)
[2017-06-16] MEDS: SODIUM CHLORIDE 0.9% FLUSH 10 ML FLUSH IV FLUSH SCH ×2 (08:26→21:00)
[2017-06-16] MEDS: diphenhydrAMINE HCL 25 MG CAP PO PRN (09:00)
[2017-06-16] MEDS: ACETAMINOPHEN 325 MG TAB PO PRN (09:00)
--- NOTE | 2017-06-16 10:34 | EKG ---
Date Performed: 06/16/2017 Time Performed: 07:05:00 PTAGE: 57 years EKG: Sinus rhythm Possible anterior infarct - age undetermined Inferior/lateral ST-T changes may be due to myocardial ischemia Abnormal ECG PREVIOUS TRACING : 06/15/2017 21.33 Compared to previous tracing, lateral T wave inversion has resolved. DOCTOR: Nikita Bradshaw Interpretating Date/Time 06/16/2017 10:31:56
[2017-06-16 10:49] LABS: SCAN/DIFF AUTO DIFF CONFIRMED
[2017-06-16 10:50] LABS: ACANTHOCYTES OCC (NORMAL); BURR CELLS 1+ (NORMAL); OVALOCYTES 1+ (NORMAL)
--- NOTE | 2017-06-16 10:54 | PD.CARD.PN ---
Subjective Subjective Remarks Denies CP, dyspnea, dizziness, nausea. Objective Medications Item Value Date Time Isosorbide 60 mg 06/15/17 1900 Mononitrate DAILY/PO 06/16/17 0825 (Imdur) Hydralazine HCl 50 mg 06/12/17 1400 (Apresoline) Q8HR/PO Carvedilol 25 mg 06/12/17 0900 (Coreg) BID/PO 06/16/17 0826 Current Medications Medications (Trade) Dose Ordered Sig/Jerzy Route Start Time Stop Time Status Last Admin (NS Flush) 2 ml UNSCH PRN IV FLUSH 06/12/17 05:00 06/13/17 10:31 (NS Flush) 2 ml BID IV FLUSH 06/12/17 09:00 06/16/17 08:26 (Zofran Inj) 4 mg Q6H PRN IV PUSH 06/12/17 05:00 06/12/17 10:33 (D50w (Vial) Inj) 50 ml UNSCH PRN IV PUSH 06/12/17 05:30 (Glucagon Inj) 1 mg UNSCH PRN OTHER 06/12/17 05:30 (NovoLOG SUPPLEMENTAL SCALE) 1 ACHS SLIDING SCALE SQ 06/12/17 08:00 06/14/17 17:59 (Coreg) 25 mg BID PO 06/12/17 09:00 06/16/17 08:26 (Flomax) 0.4 mg HS PO 06/12/17 21:00 06/14/17 22:16 Ceftriaxone Sodium 1000 mg/ Sodium Chloride 100 ml @ 200 mls/hr Q24H IV 06/12/17 08:00 06/16/17 08:25 Azithromycin 500 mg/Sodium Chloride 250 ml @ 250 mls/hr Q24H IV 06/12/17 06:00 06/15/17 05:56 (Duoneb Neb) 1 ampule Q4HR NEB PRN NEB 06/12/17 05:45 (Catapres) 0.1 mg Q6H PRN PO 06/12/17 06:00 (Carafate Liq) 1 gm ACHS PO 06/12/17 12:00 06/16/17 08:26 (Apresoline) 50 mg Q8HR PO 06/12/17 14:00 06/14/17 22:16 (Xanax) 0.5 mg Q8H PRN PO 06/12/17 12:00 06/16/17 08:26 (Protonix) 40 mg BID PO 06/13/17 21:00 06/16/17 08:25 Sodium Bicarbonate 75 meq/Sodium Chloride 1,075 ml @ 100 mls/hr [id number] IV 06/15/17 07:00 06/15/17 09:54 Miscellaneous Information ALL NURSING DEPARTME... UNSCH PRN .XX 06/15/17 13:44 06/16/17 13:43 (Imdur) 60 mg DAILY PO 06/15/17 19:00 06/16/17 08:25 (Tylenol) 500 mg Q4H PRN PO 06/16/17 09:45 Vital Signs / I&O Vital Signs Date Time Temp Pulse Resp B/P (MAP) Pulse Ox O2 Delivery O2 Flow Rate FiO2 06/16/17 09:55 97.6 78 18 168/85 97 06/16/17 08:00 97.7 80 20 165/80 (108) 95 06/16/17 00:16 Room Air 21 06/16/17 00:00 16 155/88 (110) 96 06/16/17 00:00 78 06/15/17 23:53 Room Air 21 06/15/17 21:00 75 06/15/17 21:00 75 16 151/73 (99) 95 06/15/17 20:00 98.0 69 20 105/56 (72) 95 Nasal Cannula 2 06/15/17 19:45 70 20 98/58 (71) 95 Nasal Cannula 2 06/15/17 19:30 70 20 114/59 (77) 95 Nasal Cannula 2 06/15/17 19:15 72 20 122/63 (82) 95 Nasal Cannula 2 06/15/17 19:00 76 22 133/67 (89) 95 Nasal Cannula 2 06/15/17 18:47 98.0 79 22 105/58 (74) 95 Nasal Cannula 2 06/15/17 16:49 79 22 172/77 (108) 98 Room Air 06/15/17 16:00 172/77 (108) 06/15/17 15:53 97.8 79 20 165/78 95 06/15/17 15:45 80 22 178/78 (111) 98 06/15/17 15:30 78 22 148/72 (97) 98 Nasal Cannula 06/15/17 15:15 80 22 151/72 (98) 98 Nasal Cannula 06/15/17 15:00 79 22 151/72 (98) 98 Nasal Cannula 06/15/17 14:45 77 22 150/73 (98) 99 06/15/17 14:37 97.7 75 20 122/61 96 06/15/17 14:30 77 22 138/84 (102) 99 Nasal Cannula 2 06/15/17 14:25 96 06/15/17 14:15 77 22 127/69 (88) 100 Nasal Cannula 2 06/15/17 14:00 77 22 137/65 (89) 100 Nasal Cannula 2 06/15/17 13:45 75 22 119/60 (79) 96 Nasal Cannula 2 06/15/17 13:32 98.1 75 22 122/67 (85) 95 Nasal Cannula 2 I/O 06/15/17 06/15/17 06/15/17 06/16/17 06/16/17 06/16/17 07:00 15:00 23:00 07:00 15:00 23:00 Intake Total 240 ml 1125 ml 825 ml 480 ml Output Total 550 ml 20 ml 600 ml 1715 ml Balance -310 ml 1105 ml 225 ml -1235 ml Intake Oral 240 ml 0 ml 480 ml IV Total 100 ml Packed Cells 800 ml Blood Product IV Normal Saline Flush 25 ml 25 ml Other 1000 ml Output Urine Total 550 ml 250 ml 75 ml Drainage Total 350 ml 1640 ml Estimated Blood Loss 20 ml Physical Exam GENERAL: Well developed, well nourished. No acute distress. HEENT: Jugular venous pressure hard to assess. CHEST: Lungs clear to auscultation anteriorly. CARDIAC: Regular rate and rhythm without S3, S4, or murmur. ABDOMEN: Soft, nontender, no hepatosplenomegaly. Bowel sounds present. EXTREMITIES: No clubbing, cyanosis, 1+ pretibial edema. Laboratory Laboratory Tests Test 06/15/17 13:57 06/16/17 06:44 Hemoglobin 7.7 GM/DL 9.6 GM/DL Hematocrit 24.0 % 29.9 % White Blood Count 6.9 TH/MM3 Red Blood Count 3.71 MIL/MM3 Mean Corpuscular Volume 80.4 FL Mean Corpuscular Hemoglobin 25.8 PG Mean Corpuscular Hemoglobin Concent 32.1 % Red Cell Distribution Width 24.0 % Platelet Count 197 TH/MM3 Mean Platelet Volume 7.7 FL Neutrophils (%) (Auto) 85.3 % Lymphocytes (%) (Auto) 6.8 % Monocytes (%) (Auto) 7.5 % Eosinophils (%) (Auto) 0.2 % Basophils (%) (Auto) 0.2 % Neutrophils # (Auto) 5.9 TH/MM3 Lymphocytes # (Auto) 0.5 TH/MM3 Monocytes # (Auto) 0.5 TH/MM3 Eosinophils # (Auto) 0.0 TH/MM3 Basophils # (Auto) 0.0 TH/MM3 CBC Comment AUTO DIFF Blood Urea Nitrogen 98 MG/DL Creatinine 6.61 MG/DL Random Glucose 160 MG/DL Calcium Level 7.9 MG/DL Sodium Level 141 MEQ/L Potassium Level 5.5 MEQ/L Chloride Level 116 MEQ/L Carbon Dioxide Level 12.7 MEQ/L Anion Gap 12 MEQ/L Estimat Glomerular Filtration Rate 9 ML/MIN Troponin I 0.15 NG/ML Assessment and Plan Problem List: (1) Hypertension ICD Codes: I10 - Essential (primary) hypertension Status: Chronic Plan: Stable overnight. No recurrent hypotension, bradycardia. Patient now hypertensive. Troponin only minimally increased this morning. He does have dynamic lateral T wave changes on EKGs suggesting ischemia. Rec increase isosorbide dosing, add amlodipine. (2) CAD (coronary artery disease) ICD Codes: I25.10 - Atherosclerotic heart disease of [place] coronary artery without angina pectoris Status: Chronic Plan: History of stent of ostium of LAD 2007. Difficult to elicit history from patient. No definite complaints of angina. Troponin only minimally increased this morning. He does have dynamic lateral T wave changes on EKGs suggesting ischemia. Rec increase isosorbide dosing, add amlodipine. Rec conservative cardiac evaluation and therapy. (3) Ischemic cardiomyopathy ICD Codes: I25.5 - Ischemic cardiomyopathy Status: Chronic Plan: EF 10-15% by cath and echo in 2007. Unable to find any more recent evaluation of LV function. Await echo. Continue beta maria, no LAURO-I with his renal insufficiency. Code Status full code Discussed Condition With patient Problem Qualifiers (1) Hypertension: Qualified Codes: I10 - Essential (primary) hypertension (2) CAD (coronary artery disease): Qualified Codes: I25.10 - Atherosclerotic heart disease of [place] coronary artery without angina pectoris Nikita Bradshaw MD Jun 16, 2017 10:54
[2017-06-16] MEDS ORDERED: amLODIPine BESYLATE 5 MG TAB PO SCH (11:00)
--- NOTE | 2017-06-16 12:02 | HHI.NPPN ---
Subjective History of Present Illness 7-year-old male with past medical history of adenocarcinoma of the prostate with metastasis, hypertension, diabetes mellitus, ischemic heart disease, chronic kidney disease who was admitted with complaint of nausea, vomiting and abdominal pain. I was called to see the patient because of very high BUN and creatinine. The patient has a history of chronic kidney disease. His creatinine has been around 1.8 to 1.6. Additional Remarks Patient is sleepy but arousable, remain confused, not in distress. Review of Systems General General Remarks Unable to give much review of system. Objective Data Data 06/16/17 06/17/17 19:00 07:00 Intake Total 100 ml Output Total 1575 ml Balance -1475 ml IV Total 100 ml Drainage Total 1575 ml Vital Signs Date Time Temp Pulse Resp B/P (MAP) Pulse Ox O2 Delivery O2 Flow Rate FiO2 06/16/17 11:08 98.3 71 18 138/67 98 06/16/17 09:55 97.6 78 18 168/85 97 06/16/17 08:00 97.7 80 20 165/80 (108) 95 06/16/17 00:16 Room Air 21 06/16/17 00:00 16 155/88 (110) 96 06/16/17 00:00 78 06/15/17 23:53 Room Air 21 06/15/17 21:00 75 06/15/17 21:00 75 16 151/73 (99) 95 06/15/17 20:00 98.0 69 20 105/56 (72) 95 Nasal Cannula 2 06/15/17 19:45 70 20 98/58 (71) 95 Nasal Cannula 2 06/15/17 19:30 70 20 114/59 (77) 95 Nasal Cannula 2 06/15/17 19:15 72 20 122/63 (82) 95 Nasal Cannula 2 06/15/17 19:00 76 22 133/67 (89) 95 Nasal Cannula 2 06/15/17 18:47 98.0 79 22 105/58 (74) 95 Nasal Cannula 2 06/15/17 16:49 79 22 172/77 (108) 98 Room Air 06/15/17 16:00 172/77 (108) 06/15/17 15:53 97.8 79 20 165/78 95 06/15/17 15:45 80 22 178/78 (111) 98 06/15/17 15:30 78 22 148/72 (97) 98 Nasal Cannula 06/15/17 15:15 80 22 151/72 (98) 98 Nasal Cannula 06/15/17 15:00 79 22 151/72 (98) 98 Nasal Cannula 06/15/17 14:45 77 22 150/73 (98) 99 06/15/17 14:37 97.7 75 20 122/61 96 06/15/17 14:30 77 22 138/84 (102) 99 Nasal Cannula 2 06/15/17 14:25 96 06/15/17 14:15 77 22 127/69 (88) 100 Nasal Cannula 2 06/15/17 14:00 77 22 137/65 (89) 100 Nasal Cannula 2 06/15/17 13:45 75 22 119/60 (79) 96 Nasal Cannula 2 06/15/17 13:32 98.1 75 22 122/67 (85) 95 Nasal Cannula 2 -: 06/16/17 0644 06/16/17 0644 Physical Exam General Appearance: No Acute Distress, Comfortable Eyes Eye Exam: Pupils Equal Neck Neck Exam: Neck Supple, Trachea Midline Pulmonary Resp Exam: Breath Sounds Equal, No Distress, Rhonchi Cardiology CV Exam: Regular, Normal Sinus Rhythm Gastrointestinal/Abdomen GI Exam: Soft, Non-Tender, Bowel Sounds Present Extremeties Extremities Exam: Trace Edema Neurologic Neuro Exam: Alert, Awake Assessment/Plan Assessment Summary: MIRYAM/Acute Renal Failure, Hypertension Electrolyte Assessment: Metabolic Acidosis Problem List: (1) Benign essential hypertension Status: Chronic (2) CAD (coronary artery disease) ICD Codes: I25.10 - Atherosclerotic heart disease of [place] coronary artery without angina pectoris Status: Chronic (3) History of CHF (congestive heart failure) ICD Codes: Z86.79 - Personal history of other diseases of the circulatory system Status: Chronic (4) Diabetes mellitus, type 2 ICD Codes: E11.9 - Diabetes mellitus, type 2 Status: Chronic (5) Prostate CA ICD Codes: C61 - Malignant neoplasm of prostate (6) Hematuria ICD Codes: R31.9 - Hematuria, unspecified Status: Acute (7) Acute on chronic renal failure ICD Codes: N17.9 - Acute kidney failure, unspecified; N18.9 - Chronic kidney disease, unspecified Status: Acute Plan Patient has chronic kidney disease and develop MIRYAM. Most likely due to obstructive uropathy. Had Cystoscopy done. Has bladder tumor removed. Unable to get stent in the ureter. Had bilateral Nephrostomy done on 06/15. Follow the urine out put and BMP. BUN and Creatinine remain almost same. K is 5.5. Give dose of Kayexalate, Follow the urine out put and BMP. Problem Qualifiers (1) CAD (coronary artery disease): Qualified Codes: I25.10 - Atherosclerotic heart disease of [place] coronary artery without angina pectoris Raquel Allen MD Jun 16, 2017 12:02
--- NOTE | 2017-06-16 12:06 | HHI.PR ---
Subjective Remarks Patient is very confused. He was agitated overnight and placed in soft restraints and had to receive IM Haldol. Patient unable to provide history. Objective Vitals Vital Signs Date Time Temp Pulse Resp B/P (MAP) Pulse Ox O2 Delivery O2 Flow Rate FiO2 06/16/17 11:08 98.3 71 18 138/67 98 06/16/17 09:55 97.6 78 18 168/85 97 06/16/17 08:00 97.7 80 20 165/80 (108) 95 06/16/17 00:16 Room Air 21 06/16/17 00:00 16 155/88 (110) 96 06/16/17 00:00 78 06/15/17 23:53 Room Air 21 06/15/17 21:00 75 06/15/17 21:00 75 16 151/73 (99) 95 06/15/17 20:00 98.0 69 20 105/56 (72) 95 Nasal Cannula 2 06/15/17 19:45 70 20 98/58 (71) 95 Nasal Cannula 2 06/15/17 19:30 70 20 114/59 (77) 95 Nasal Cannula 2 06/15/17 19:15 72 20 122/63 (82) 95 Nasal Cannula 2 06/15/17 19:00 76 22 133/67 (89) 95 Nasal Cannula 2 06/15/17 18:47 98.0 79 22 105/58 (74) 95 Nasal Cannula 2 06/15/17 16:49 79 22 172/77 (108) 98 Room Air 06/15/17 16:00 172/77 (108) 06/15/17 15:53 97.8 79 20 165/78 95 06/15/17 15:45 80 22 178/78 (111) 98 06/15/17 15:30 78 22 148/72 (97) 98 Nasal Cannula 06/15/17 15:15 80 22 151/72 (98) 98 Nasal Cannula 06/15/17 15:00 79 22 151/72 (98) 98 Nasal Cannula 06/15/17 14:45 77 22 150/73 (98) 99 06/15/17 14:37 97.7 75 20 122/61 96 06/15/17 14:30 77 22 138/84 (102) 99 Nasal Cannula 2 06/15/17 14:25 96 06/15/17 14:15 77 22 127/69 (88) 100 Nasal Cannula 2 06/15/17 14:00 77 22 137/65 (89) 100 Nasal Cannula 2 06/15/17 13:45 75 22 119/60 (79) 96 Nasal Cannula 2 06/15/17 13:32 98.1 75 22 122/67 (85) 95 Nasal Cannula 2 I/O 06/15/17 06/15/17 06/15/17 06/16/17 06/16/17 06/16/17 07:00 15:00 23:00 07:00 15:00 23:00 Intake Total 240 ml 1125 ml 825 ml 480 ml 100 ml Output Total 550 ml 20 ml 600 ml 1715 ml 1575 ml Balance -310 ml 1105 ml 225 ml -1235 ml -1475 ml Intake Oral 240 ml 0 ml 480 ml IV Total 100 ml 100 ml Packed Cells 800 ml Blood Product IV Normal Saline Flush 25 ml 25 ml Other 1000 ml Output Urine Total 550 ml 250 ml 75 ml Drainage Total 350 ml 1640 ml 1575 ml Estimated Blood Loss 20 ml Result Diagram: 06/16/1744 06/16/1744 Objective Remarks GENERAL: Well-nourished, well-developed patient. SKIN: Warm and dry. HEAD: Normocephalic. EYES: No scleral icterus. No injection or drainage. NECK: Supple, trachea midline. No JVD or lymphadenopathy. CARDIOVASCULAR: Regular rate and rhythm without murmurs, gallops, or rubs. RESPIRATORY: Breath sounds equal bilaterally. No accessory muscle use. GASTROINTESTINAL: Bowel sounds present. Abdomen soft, non-tender, distended. EXTREMITIES: 2+ pedal edema. NEUROLOGICAL: Somnolent, awakens but is very confused. A/P Problem List: (1) GI bleed ICD Code: K92.2 - Gastrointestinal hemorrhage, unspecified Status: Acute (2) Acute on chronic renal failure ICD Code: N17.9 - Acute kidney failure, unspecified; N18.9 - Chronic kidney disease, unspecified Status: Acute (3) Diabetes mellitus, type 2 ICD Code: E11.9 - Diabetes mellitus, type 2 Status: Chronic (4) Hydronephrosis ICD Code: N13.30 - Unspecified hydronephrosis Status: Acute (5) Anemia due to acute blood loss ICD Code: D62 - Acute posthemorrhagic anemia Status: Acute (6) Hematuria ICD Code: R31.9 - Hematuria, unspecified Status: Acute (7) Fall ICD Code: W19.XXXA - Unspecified fall, initial encounter Status: Acute (8) Prostate cancer metastatic to bone ICD Code: C61 - Malignant neoplasm of prostate; C79.51 - Secondary malignant neoplasm of bone Status: Chronic (9) Chronic systolic CHF (congestive heart failure) ICD Code: I50.22 - Chronic systolic (congestive) heart failure Status: Chronic (10) CAD (coronary artery disease), [place] coronary artery ICD Code: I25.10 - Atherosclerotic heart disease of [place] coronary artery without angina pectoris Status: Chronic (11) Acute metabolic encephalopathy ICD Code: G93.41 - Metabolic encephalopathy Status: Acute (12) Prostate cancer metastatic to multiple sites ICD Code: C61 - Malignant neoplasm of prostate Status: Chronic (13) Ischemic cardiomyopathy ICD Code: I25.5 - Ischemic cardiomyopathy Status: Chronic Assessment and Plan 1. Severe anemia d/t hematuria, gi bleed s/p EGD 06/13/17 showing duodenal ulcer and gastritis s/p Transfusion 2 units PRBCs Continue Protonix Appreciate input from gastroenterology, Monitor H&H, transfuse when necessary hemoglobin less than 7 or active bleeding 2. Acute renal failure, obstructive - Status post cystoscopy 06/15 with partial resection of bladder mass presumably metastatic from known prostate cancer, ureteral stents were unable to be placed Status post emergent bilateral nephrostomy tubes 06/15 with interventional radiology BUN/creatinine 90/6.04 on admission Secondary to obstructive uropathy with bilateral hydronephrosis Nephrology and urology consulted, appreciate recommendations Hold all nephrotoxic drugs Monitor renal function cont kumar cath IVF per nephrology - monitor for fluid overload may require dialysis if no improvement - K 5.5 today will give kayexylate 3. Pneumonia CXR showed bilateral lower lobe infiltrates with consolidation on the left Cont on Rocephin/Azithromycin 4. Metastatic prostate cancer Patient with known prostate ca and accompanying metastatic disease to bone, bladder, lost to follow up Appreciate input from oncology -consideration to systemic chemotherapy after DC 5. Known chronic systolic CHF, ischemic cardiomyopathy with EF 15% in 2007, s/p stent to LAD at that time by Dr. Scott Cardiology following EKG with possible lateral ischemic changes On isosorbide mononitrate, norvasc, coreg no asa due to bleeding no acei due to ARF 6. Hypertension Continue hydralazine 50 mg every 8 hourly, coreg, norvasc monitor BP trends and adjust medications as needed 7. CAD/Elevated troponin s/p LAD stent in 2007 Troponin 0.07, suspect secondary to renal failure Acs ruled out cardiolofy ff/Leeann - conservative care 8. Acute metabolic/uremic encephalopathy Reorient DC opioids, tylenol for pain 9. T2DM Continue with sliding scale insulin and Accu-Cheks. Blood glucose in the 100 trend. DVT prophylaxis: Chemical anti-prophylactic contraindicated secondary to GI bleed as well as hematuria.. Bilateral SCDs Poor prognosis. No family contact - exwife listed as only contact Consult palliative care Problem Qualifiers (1) GI bleed: Qualified Codes: K92.2 - Gastrointestinal hemorrhage, unspecified Robina Tillman MD Jun 16, 2017 12:06
[2017-06-16] MEDS ORDERED: SODIUM POLYSTYRENE SULFONATE SUSP 15 GM/60 ML CUP PO ONE (12:30)
--- NOTE | 2017-06-16 12:38 | HHI.PR ---
Subjective Patient symptoms today Postop day #1 S/P cystoscopy with palliative partial resection of bladder mass as well as subsequent placement of bilateral nephrostomy tubes by interventional radiology. Objective Vital Signs Vital Signs Date Time Temp Pulse Resp B/P (MAP) Pulse Ox O2 Delivery O2 Flow Rate FiO2 06/16/17 11:08 98.3 71 18 138/67 98 06/16/17 09:55 97.6 78 18 168/85 97 06/16/17 09:00 Room Air 06/16/17 09:00 68 06/16/17 08:00 97.7 80 20 165/80 (108) 95 06/16/17 00:16 Room Air 21 06/16/17 00:00 16 155/88 (110) 96 06/16/17 00:00 78 06/15/17 23:53 Room Air 21 06/15/17 21:00 75 06/15/17 21:00 75 16 151/73 (99) 95 06/15/17 20:00 98.0 69 20 105/56 (72) 95 Nasal Cannula 2 06/15/17 19:45 70 20 98/58 (71) 95 Nasal Cannula 2 06/15/17 19:30 70 20 114/59 (77) 95 Nasal Cannula 2 06/15/17 19:15 72 20 122/63 (82) 95 Nasal Cannula 2 06/15/17 19:00 76 22 133/67 (89) 95 Nasal Cannula 2 06/15/17 18:47 98.0 79 22 105/58 (74) 95 Nasal Cannula 2 06/15/17 16:49 79 22 172/77 (108) 98 Room Air 06/15/17 16:00 172/77 (108) 06/15/17 15:53 97.8 79 20 165/78 95 06/15/17 15:45 80 22 178/78 (111) 98 06/15/17 15:30 78 22 148/72 (97) 98 Nasal Cannula 06/15/17 15:15 80 22 151/72 (98) 98 Nasal Cannula 06/15/17 15:00 79 22 151/72 (98) 98 Nasal Cannula 06/15/17 14:45 77 22 150/73 (98) 99 06/15/17 14:37 97.7 75 20 122/61 96 06/15/17 14:30 77 22 138/84 (102) 99 Nasal Cannula 2 06/15/17 14:25 96 06/15/17 14:15 77 22 127/69 (88) 100 Nasal Cannula 2 06/15/17 14:00 77 22 137/65 (89) 100 Nasal Cannula 2 06/15/17 13:45 75 22 119/60 (79) 96 Nasal Cannula 2 06/15/17 13:32 98.1 75 22 122/67 (85) 95 Nasal Cannula 2 Intake & Output 06/16/17 06/16/17 07:00 19:00 Intake Total 480 ml 100 ml Output Total 2315 ml 1575 ml Balance -1835 ml -1475 ml Intake Oral 480 ml IV Total 100 ml Output Urine Total 325 ml Drainage Total 1990 ml 1575 ml Result Diagram: 06/16/1764306/16/17 06 Objective Remarks Resting quietly in bed and does not appear to be in any distress. Bilateral nephrostomy tubes and Celaya catheter in place and draining light red urine without clots. Abdomen soft, nontender Extremities well-perfused, nontender Medications and IVs Current Medications Medications (Trade) Dose Ordered Sig/Jerzy Route Start Time Stop Time Status Last Admin (NS Flush) 2 ml UNSCH PRN IV FLUSH 06/12/17 05:00 06/13/17 10:31 (NS Flush) 2 ml BID IV FLUSH 06/12/17 09:00 06/16/17 08:26 (Zofran Inj) 4 mg Q6H PRN IV PUSH 06/12/17 05:00 06/12/17 10:33 (D50w (Vial) Inj) 50 ml UNSCH PRN IV PUSH 06/12/17 05:30 (Glucagon Inj) 1 mg UNSCH PRN OTHER 06/12/17 05:30 (NovoLOG SUPPLEMENTAL SCALE) 1 ACHS SLIDING SCALE SQ 06/12/17 08:00 06/14/17 17:59 (Coreg) 25 mg BID PO 06/12/17 09:00 06/16/17 08:26 (Flomax) 0.4 mg HS PO 06/12/17 21:00 06/14/17 22:16 Ceftriaxone Sodium 1000 mg/ Sodium Chloride 100 ml @ 200 mls/hr Q24H IV 06/12/17 08:00 06/16/17 08:25 Azithromycin 500 mg/Sodium Chloride 250 ml @ 250 mls/hr Q24H IV 06/12/17 06:00 06/15/17 05:56 (Duoneb Neb) 1 ampule Q4HR NEB PRN NEB 06/12/17 05:45 (Catapres) 0.1 mg Q6H PRN PO 06/12/17 06:00 (Carafate Liq) 1 gm ACHS PO 06/12/17 12:00 06/16/17 08:26 (Apresoline) 50 mg Q8HR PO 06/12/17 14:00 06/14/17 22:16 (Xanax) 0.5 mg Q8H PRN PO 06/12/17 12:00 06/16/17 08:26 (Protonix) 40 mg BID PO 06/13/17 21:00 06/16/17 08:25 Sodium Bicarbonate 75 meq/Sodium Chloride 1,075 ml @ 100 mls/hr [id number] IV 06/15/17 07:00 06/15/17 09:54 Miscellaneous Information ALL NURSING DEPARTME... UNSCH PRN .XX 06/15/17 13:44 06/16/17 13:43 (Tylenol) 500 mg Q4H PRN PO 06/16/17 09:45 (Imdur) 120 mg DAILY PO 06/17/17 09:00 (Norvasc) 5 mg DAILY PO 06/16/17 11:00 UNV Assessment and Plan Assessment and Plan Urologic impression: #1 progression of metastatic prostate cancer #2 bilateral hydroureteronephrosis related to prostate cancer involving the distal ureters #3 bladder mass seen on CT scanning and cystoscopy likely related to the prostate cancer #4 hematuria related to the prostate cancer Recommendations: #1 continue with indwelling Celaya catheter to gravity drainage and irrigate when necessary. #2 continue bilateral nephrostomy tubes to gravity drainage. #3 ongoing medical management as per oncology. #4 patient should continue to follow up with his established urologist Dr. Sepulveda after hospital discharge. Casey Gutierrez MD Jun 16, 2017 12:38
--- NOTE | 2017-06-16 13:41 | ECHRPT ---
Indication: sob CONCLUSIONS Mildly dilated left ventricle. The left ventricular systolic function is severely reduced with an estimated ejection fraction in th e range of 30-35%. Mild mitral valve regurgitation. There is mild tricuspid valve regurgitation. The estimated pulmonary arterial pressure is 48.9 mmHg. BP: / HR: Rhythm: MEASUREMENTS (Male / Female) Normal Values Technical Quality:Fair 2D ECHO LV Diastolic Diameter PLAX 6.3 cm 4.2 - 5.9 / 3.9 - 5.3 cm LV Systolic Diameter PLAX 5.5 cm IVS Diastolic Thickness 1.1 cm 0.6 - 1.0 / 0.6 - 0.9 cm LVPW Diastolic Thickness 1.3 cm 0.6 - 1.0 / 0.6 - 0.9 cm LV Relative Wall Thickness 0.4 RV Internal Dim ED PLAX 3.3 cm M-MODE Aortic Root Diameter MM 3.6 cm LA Systolic Diameter MM 4.1 cm LA Ao Ratio MM 1.1 AV Cusp Separation MM 1.9 cm DOPPLER Mitral E Point Velocity 77.5 cm/s Mitral A Point Velocity 74.5 cm/s Mitral E to A Ratio 1.0 LV E' Lateral Velocity 6.9 cm/s Mitral E to LV E' Lateral Ratio 11.2 LV E' Septal Velocity 8.1 cm/s Mitral E to LV E' Septal Ratio 9.6 TR Peak Velocity 312.0 cm/s TR Peak Gradient 38.9 mmHg Right Atrial Pressure 10.0 mmHg Pulmonary Artery Systolic Pressu 48.9 mmHg Right Ventricular Systolic Press 48.9 mmHg FINDINGS LEFT VENTRICLE Mildly dilated left ventricle. The left ventricular systolic function is severely reduced with an estimated ejection fraction in th e range of 30-35%. RIGHT VENTRICLE Normal right ventricular size and systolic function. LEFT ATRIUM The left atrial size is normal. RIGHT ATRIUM The right atrial size is normal. ATRIAL SEPTUM Normal atrial septal thickness without atrial level shunting by limited color doppler interrogation. AORTA The aortic root and proximal ascending aorta are normal in size on limited imaging. MITRAL VALVE Structurally normal mitral valve. Mild mitral valve regurgitation. AORTIC VALVE Trileaflet aortic valve. No aortic valve stenosis or regurgitation. TRICUSPID VALVE Structurally normal tricuspid valve. There is mild tricuspid valve regurgitation. The estimated pulmonary arterial pressure is 48.9 mmHg. PULMONARY VALVE No pulmonary valve regurgitation or stenosis. VESSELS The inferior vena cava is normal in size. PERICARDIUM No pericardial effusion. Doc Naik MD, FACC (Electronically Signed) Final Date:16 June 2017 13:40
[2017-06-16] MEDS: TAMSULOSIN HCL 0.4 MG CAP PO SCH (20:32)
[2017-06-17] VITALS (9 sets, daily range): BP systolic 164–194; BP diastolic 97–112; PULSE 74–97; RESP 19–20; TEMP 97.6–99; O2SAT 94–99
[2017-06-17] MEDS: ALPRAZolam 0.5 MG TAB PO PRN ×2 (01:21→18:26)
[2017-06-17] MEDS: SODIUM BICARBONATE 8.4% INJ 75 MEQ in SODIUM CHLOR 0.45% 1000 ML INJ 1,000 ML IV SCH ×4 (02:00→23:15)
[2017-06-17] MEDS: hydrALAZINE HCL 50 MG TAB PO SCH ×3 (05:28→22:16)
[2017-06-17] MEDS: AZITHROMYCIN INJ 500 MG in SODIUM CHLOR 0.9% 250 ML INJ 250 ML IV SCH (05:28)
[2017-06-17 07:11] LABS: AUTOMATED NEUTROPHIL # 6.8 TH/MM3 (1.8-7.7); BASOPHIL % 0.5 % (0.0-2.0); EOSINOPHIL # 0.3 TH/MM3 (0-0.4); EOSINOPHIL % 3.2 % (0.0-4.0); HEMATOCRIT 30.7 % (39.0-51.0); HEMO FLAGS AUTO DIFF; LYMPH % 6.8 % (9.0-44.0); LYMPHOCYTE # 0.6 TH/MM3 (1.0-4.8); MEAN CELL VOLUME 80.5 FL (80.0-100.0); MEAN CORPUSCULAR HEMOGLOBIN 25.7 PG (27.0-34.0); MEAN CORPUSCULAR HGB CONC 31.9 % (32.0-36.0); NEUT % 80.5 % (16.0-70.0); PLATELET COUNT 194 TH/MM3 (150-450); RED BLOOD COUNT 3.81 MIL/MM3 (4.50-5.90); RED CELL DISTRIBUTION WIDTH 24.1 % (11.6-17.2); WHITE BLOOD COUNT 8.4 TH/MM3 (4.0-11.0)
[2017-06-17 07:51] LABS: BICARBONATE 12.8 MEQ/L (21.0-32.0); POTASSIUM 4.7 MEQ/L (3.5-5.1)
[2017-06-17 08:32] LABS: ACANTHOCYTES OCC (NORMAL); BURR CELLS 1+ (NORMAL)
[2017-06-17 08:33] LABS: KERATOCYTES OCC (NORMAL); OVALOCYTES 1+ (NORMAL); PLATELET ESTIMATE SMEAR NORMAL (NORMAL); PLATELET MORPHOLOGY NORMAL (NORMAL); SCAN/DIFF AUTO DIFF CONFIRMED
[2017-06-17 09:06] LABS: CALCIUM-PROTEIN CORRECTED 7.4 MG/DL (8.5-10.1)
[2017-06-17] MEDS: SUCRALFATE 1 GM/10 ML CUP PO SCH ×3 (10:04→17:47)
[2017-06-17] MEDS: cefTRIAXone INJ 1,000 MG in SODIUM CHLORIDE 0.9% INJ 100 ML IV SCH (10:04)
--- NOTE | 2017-06-17 10:14 | RADRPT ---
EXAM DATE/TIME: 06/15/2017 16:45 [facility] COMPARISON: No previous studies available for comparison. INDICATIONS : Patient with a history of hydronephrosis, needs bilateral nephrostomy tubes. MEDICAL HISTORY : Type II Diabetes HTN Testicle cancer CAD Osteomyelitis, left foot SURGICAL HISTORY : Left foot surgery Cardiac cath ENCOUNTER: Initial ACUITY: 3 days PAIN SCORE: 9/10 LOCATION: Bilateral lower quadrant FLUORO TIME: 4.5 minutes IMAGE SERIES: 2 SEDATION TIME: 30 minutes CONTRAST: 30 cc Omnipaque (iohexol) 350 MEDICATION(S): 1.) 4 mg midazolam (Versed) IV 2.) 200 mcg fentanyl (Sublimaze) IV DEVICE(S): 1.) 10 [place] nephrostomy catheter PROCEDURE : 1. Ultrasound-guided puncture of the kidney. 2. Antegrade percutaneous pyelogram. 3. Percutaneous nephrostomy placement. 4. Conscious sedation with continuous EKG and oximetry monitoring. The risks, benefits and alternatives to the procedure were explained and verbal and written consent w as obtained. The site was prepped in sterile fashion. Full sterile technique was used, including ca p, mask, sterile gloves and gown and a large sterile sheet. Hand hygiene and 2% chlorhexidine and/or betadine/alcohol prep was utilized per protocol for cutaneous antisepsis. Sterile gel and sterile probe cover were utilized for ultrasound guidance. The skin and subcutaneous tissues were infiltrate d with local anesthetic solution. With ultrasound and fluoroscopic guidance the selected kidney was punctured and a percutaneous antegr abhinav pyelogram was performed demonstrating a dilated collecting system. Serial dilatation was perform ed and a prescribed nephrostomy tube was placed within the renal pelvis and sutured in place. Conscious sedation was performed with the prescribed dosages and duration as above in the presence of an independent trained radiology nurse to assist in the monitoring of the patient. EKG and oximetry remained stable throughout the procedure. The patient tolerated the procedure well and there were n o complications. The patient was sent to post anesthesia recovery in stable condition. CONCLUSION: Uncomplicated nephrostomy tube placement as above. Alessandro Pope MD on June 17, 2017 at 10:12 Board Certified Radiologist. This report was verified electronically.
--- NOTE | 2017-06-17 10:24 | PD.CARD.PN ---
Subjective Subjective Remarks Somnolent. Arousable. Seems to deny pain, dyspnea. Objective Medications Item Value Date Time Isosorbide 120 mg 06/17/17 0900 Mononitrate DAILY/PO (Imdur) Hydralazine HCl 50 mg 06/12/17 1400 (Apresoline) Q8HR/PO 06/17/17 0528 Carvedilol 25 mg 06/12/17 0900 (Coreg) BID/PO 06/16/172031 Clonidine 0.1 mg 06/12/17 0600 (Catapres) Q6H PRN/PO Current Medications Medications (Trade) Dose Ordered Sig/Jerzy Route Start Time Stop Time Status Last Admin (NS Flush) 2 ml UNSCH PRN IV FLUSH 06/12/17 05:00 06/13/17 10:31 (NS Flush) 2 ml BID IV FLUSH 06/12/17 09:00 06/16/17 21:00 (Zofran Inj) 4 mg Q6H PRN IV PUSH 06/12/17 05:00 06/12/17 10:33 (D50w (Vial) Inj) 50 ml UNSCH PRN IV PUSH 06/12/17 05:30 (Glucagon Inj) 1 mg UNSCH PRN OTHER 06/12/17 05:30 (NovoLOG SUPPLEMENTAL SCALE) 1 ACHS SLIDING SCALE SQ 06/12/17 08:00 06/16/17 20:40 (Coreg) 25 mg BID PO 06/12/17 09:00 06/16/17 20:32 (Flomax) 0.4 mg HS PO 06/12/17 21:00 06/16/17 20:32 Ceftriaxone Sodium 1000 mg/ Sodium Chloride 100 ml @ 200 mls/hr Q24H IV 06/12/17 08:00 06/18/17 21:00 06/17/17 10:04 (Duoneb Neb) 1 ampule Q4HR NEB PRN NEB 06/12/17 05:45 (Catapres) 0.1 mg Q6H PRN PO 06/12/17 06:00 (Carafate Liq) 1 gm ACHS PO 06/12/17 12:00 06/17/17 10:04 (Apresoline) 50 mg Q8HR PO 06/12/17 14:00 06/17/17 05:28 (Xanax) 0.5 mg Q8H PRN PO 06/12/17 12:00 06/17/17 01:21 (Protonix) 40 mg BID PO 06/13/17 21:00 06/16/17 20:32 Sodium Bicarbonate 75 meq/Sodium Chloride 1,075 ml @ 100 mls/hr [id number] IV 06/15/17 07:00 06/16/17 13:24 (Tylenol) 500 mg Q4H PRN PO 06/16/17 09:45 (Imdur) 120 mg DAILY PO 06/17/17 09:00 (Renvela) 800 mg TIDAC PO 06/17/17 12:00 Vital Signs / I&O Vital Signs Date Time Temp Pulse Resp B/P (MAP) Pulse Ox O2 Delivery O2 Flow Rate FiO2 06/17/17 08:15 97 Room Air 06/17/17 08:15 81 06/17/17 08:15 98.8 90 20 164/98 (120) 97 06/17/17 07:26 95 21 06/17/17 05:34 98.1 80 19 174/108 (130) 96 06/17/17 00:00 99.0 74 19 169/105 (126) 99 06/16/17 20:14 95 Room Air 06/16/17 20:14 98.3 81 19 157/88 (111) 95 06/16/17 20:00 80 06/16/17 17:00 97.7 79 18 150/84 (106) 97 06/16/17 14:38 98 06/16/17 13:51 97.8 75 18 153/86 (108) 96 06/16/17 11:08 98.3 71 18 138/67 98 I/O 06/16/17 06/16/17 06/16/17 06/17/17 06/17/17 06/17/17 07:00 15:00 23:00 07:00 15:00 23:00 Intake Total 480 ml 500 ml 1800 ml Output Total 1715 ml 1575 ml 2125 ml 3350 ml 1475 ml Balance -1235 ml -1075 ml -325 ml -3350 ml -1475 ml Intake Oral 480 ml 1800 ml IV Total 100 ml Packed Cells 400 ml Output Urine Total 75 ml 125 ml 50 ml Drainage Total 1640 ml 1575 ml 2000 ml 3300 ml 1475 ml Physical Exam GENERAL: Well developed, well nourished. No acute distress. HEENT: Jugular venous pressure hard to assess. CHEST: Lungs clear to auscultation anteriorly. CARDIAC: Regular rate and rhythm without S3, S4, or murmur. ABDOMEN: Soft, nontender, no hepatosplenomegaly. Bowel sounds present. EXTREMITIES: No clubbing, cyanosis, 1+ pretibial edema. Laboratory Laboratory Tests Test 06/17/17 06:51 White Blood Count 8.4 TH/MM3 Red Blood Count 3.81 MIL/MM3 Hemoglobin 9.8 GM/DL Hematocrit 30.7 % Mean Corpuscular Volume 80.5 FL Mean Corpuscular Hemoglobin 25.7 PG Mean Corpuscular Hemoglobin Concent 31.9 % Red Cell Distribution Width 24.1 % Platelet Count 194 TH/MM3 Mean Platelet Volume 7.3 FL Neutrophils (%) (Auto) 80.5 % Lymphocytes (%) (Auto) 6.8 % Monocytes (%) (Auto) 9.0 % Eosinophils (%) (Auto) 3.2 % Basophils (%) (Auto) 0.5 % Neutrophils # (Auto) 6.8 TH/MM3 Lymphocytes # (Auto) 0.6 TH/MM3 Monocytes # (Auto) 0.8 TH/MM3 Eosinophils # (Auto) 0.3 TH/MM3 Basophils # (Auto) 0.0 TH/MM3 CBC Comment AUTO DIFF Differential Comment AUTO DIFF CONFIRMED Platelet Estimate NORMAL Platelet Morphology Comment NORMAL Ovalocytes 1+ Sami Cells 1+ Acanthocytes OCC Keratocytes OCC Blood Urea Nitrogen 83 MG/DL Creatinine 5.28 MG/DL Random Glucose 188 MG/DL Total Protein 6.9 GM/DL Calcium Level 7.3 MG/DL Sodium Level 142 MEQ/L Potassium Level 4.7 MEQ/L Chloride Level 116 MEQ/L Carbon Dioxide Level 12.8 MEQ/L Anion Gap 13 MEQ/L Estimat Glomerular Filtration Rate 11 ML/MIN Protein Corrected Calcium 7.4 MG/DL Assessment and Plan Problem List: (1) Hypertension ICD Codes: I10 - Essential (primary) hypertension Status: Chronic Plan: Stable overnight. No recurrent hypotension, bradycardia that patient experienced post cystoscopy. Patient now hypertensive. He does have dynamic lateral T wave changes on EKGs suggesting myocardial ischemia. Not much else to offer patient from cardiac standpoint. (2) CAD (coronary artery disease) ICD Codes: I25.10 - Atherosclerotic heart disease of [place] coronary artery without angina pectoris Status: Chronic Plan: History of stent of ostium of LAD 2007. Difficult to elicit history from patient. No definite complaints of angina. Troponin only minimally increased, and in the setting of renal insufficiency. He does have dynamic lateral T wave changes on EKGs suggesting ischemia. Rec conservative cardiac evaluation and therapy. (3) Ischemic cardiomyopathy ICD Codes: I25.5 - Ischemic cardiomyopathy Status: Chronic Plan: EF 10-15% by cath and echo in 2007. EF reportedly 30-35% by echo this admission. Continue beta maria, no LAURO-I with his renal insufficiency. Code Status full code Problem Qualifiers (1) Hypertension: Qualified Codes: I10 - Essential (primary) hypertension (2) CAD (coronary artery disease): Qualified Codes: I25.10 - Atherosclerotic heart disease of [place] coronary artery without angina pectoris Nikita Bradshaw MD Jun 17, 2017 10:24
--- NOTE | 2017-06-17 11:46 | HHI.NPPN ---
Subjective History of Present Illness 7-year-old male with past medical history of adenocarcinoma of the prostate with metastasis, hypertension, diabetes mellitus, ischemic heart disease, chronic kidney disease who was admitted with complaint of nausea, vomiting and abdominal pain. I was called to see the patient because of very high BUN and creatinine. The patient has a history of chronic kidney disease. His creatinine has been around 1.8 to 1.6. Additional Remarks Patient is alert, now oriented times 2 , not in distress. Review of Systems General General Remarks Unable to give much review of system. Objective Data Data 06/17/17 06/18/17 19:00 07:00 Output Total 2225 ml Balance -2225 ml Drainage Total 2225 ml Vital Signs Date Time Temp Pulse Resp B/P (MAP) Pulse Ox O2 Delivery O2 Flow Rate FiO2 06/17/17 08:15 97 Room Air 06/17/17 08:15 81 06/17/17 08:15 98.8 90 20 164/98 (120) 97 06/17/17 07:26 95 21 06/17/17 05:34 98.1 80 19 174/108 (130) 96 06/17/17 00:00 99.0 74 19 169/105 (126) 99 06/16/17 20:14 95 Room Air 06/16/17 20:14 98.3 81 19 157/88 (111) 95 06/16/17 20:00 80 06/16/17 17:00 97.7 79 18 150/84 (106) 97 06/16/17 14:38 98 06/16/17 13:51 97.8 75 18 153/86 (108) 96 -: 06/17/17 0651 06/17/17 0651 Physical Exam General Appearance: No Acute Distress, Comfortable Eyes Eye Exam: Pupils Equal Neck Neck Exam: Neck Supple, Trachea Midline Pulmonary Resp Exam: Breath Sounds Equal, No Distress, Rhonchi Cardiology CV Exam: Regular, Normal Sinus Rhythm Gastrointestinal/Abdomen GI Exam: Soft, Non-Tender, Bowel Sounds Present Extremeties Extremities Exam: Trace Edema Neurologic Neuro Exam: Alert, Awake Assessment/Plan Assessment Summary: MIRYAM/Acute Renal Failure, Hypertension Electrolyte Assessment: Metabolic Acidosis Problem List: (1) Benign essential hypertension Status: Chronic (2) CAD (coronary artery disease) ICD Codes: I25.10 - Atherosclerotic heart disease of [place] coronary artery without angina pectoris Status: Chronic (3) History of CHF (congestive heart failure) ICD Codes: Z86.79 - Personal history of other diseases of the circulatory system Status: Chronic (4) Diabetes mellitus, type 2 ICD Codes: E11.9 - Diabetes mellitus, type 2 Status: Chronic (5) Prostate CA ICD Codes: C61 - Malignant neoplasm of prostate (6) Hematuria ICD Codes: R31.9 - Hematuria, unspecified Status: Acute (7) Acute on chronic renal failure ICD Codes: N17.9 - Acute kidney failure, unspecified; N18.9 - Chronic kidney disease, unspecified Status: Acute Plan Patient has chronic kidney disease and develop MIRYAM. Most likely due to obstructive uropathy. Had Cystoscopy done. Has bladder tumor removed. Unable to get stent in the ureter. Had bilateral Nephrostomy done on 06/15. BUN and Creatinine start improving. K is now normal. Po4 was high and calcium is low, change Renvela to Phoslo. Follow the urine out put and BMP. BP is elevated, increase Hydralazine. Problem Qualifiers (1) CAD (coronary artery disease): Qualified Codes: I25.10 - Atherosclerotic heart disease of [place] coronary artery without angina pectoris Raquel Allen MD Jun 17, 2017 11:46
--- NOTE | 2017-06-17 11:48 | HHI.PR ---
Subjective Remarks Patient remains confused and restless. Sitter was ordered as he had pulled out his IV multiple times yesterday. Good urine output. Objective Vitals Vital Signs Date Time Temp Pulse Resp B/P (MAP) Pulse Ox O2 Delivery O2 Flow Rate FiO2 06/17/17 08:15 97 Room Air 06/17/17 08:15 81 06/17/17 08:15 98.8 90 20 164/98 (120) 97 06/17/17 07:26 95 21 06/17/17 05:34 98.1 80 19 174/108 (130) 96 06/17/17 00:00 99.0 74 19 169/105 (126) 99 06/16/17 20:14 95 Room Air 06/16/17 20:14 98.3 81 19 157/88 (111) 95 06/16/17 20:00 80 06/16/17 17:00 97.7 79 18 150/84 (106) 97 06/16/17 14:38 98 06/16/17 13:51 97.8 75 18 153/86 (108) 96 I/O 06/16/17 06/16/17 06/16/17 06/17/17 06/17/17 06/17/17 07:00 15:00 23:00 07:00 15:00 23:00 Intake Total 480 ml 500 ml 1800 ml Output Total 1715 ml 1575 ml 2125 ml 3350 ml 2225 ml Balance -1235 ml -1075 ml -325 ml -3350 ml -2225 ml Intake Oral 480 ml 1800 ml IV Total 100 ml Packed Cells 400 ml Output Urine Total 75 ml 125 ml 50 ml Drainage Total 1640 ml 1575 ml 2000 ml 3300 ml 2225 ml Result Diagram: 06/17/1751 06/17/17 0651 Objective Remarks GENERAL: Well-nourished, well-developed patient. SKIN: Warm and dry. HEAD: Normocephalic. EYES: No scleral icterus. No injection or drainage. NECK: Supple, trachea midline. No JVD or lymphadenopathy. CARDIOVASCULAR: Regular rate and rhythm without murmurs, gallops, or rubs. RESPIRATORY: Breath sounds equal bilaterally. No accessory muscle use. GASTROINTESTINAL: Bowel sounds present. Abdomen soft, non-tender, distended. EXTREMITIES: 2+ pedal edema. NEUROLOGICAL: Somnolent, awakens but is very confused. A/P Problem List: (1) GI bleed ICD Code: K92.2 - Gastrointestinal hemorrhage, unspecified Status: Acute (2) Acute on chronic renal failure ICD Code: N17.9 - Acute kidney failure, unspecified; N18.9 - Chronic kidney disease, unspecified Status: Acute (3) Diabetes mellitus, type 2 ICD Code: E11.9 - Diabetes mellitus, type 2 Status: Chronic (4) Hydronephrosis ICD Code: N13.30 - Unspecified hydronephrosis Status: Acute (5) Anemia due to acute blood loss ICD Code: D62 - Acute posthemorrhagic anemia Status: Acute (6) Hematuria ICD Code: R31.9 - Hematuria, unspecified Status: Acute (7) Fall ICD Code: W19.XXXA - Unspecified fall, initial encounter Status: Acute (8) Prostate cancer metastatic to bone ICD Code: C61 - Malignant neoplasm of prostate; C79.51 - Secondary malignant neoplasm of bone Status: Chronic (9) Chronic systolic CHF (congestive heart failure) ICD Code: I50.22 - Chronic systolic (congestive) heart failure Status: Chronic (10) CAD (coronary artery disease), [place] coronary artery ICD Code: I25.10 - Atherosclerotic heart disease of [place] coronary artery without angina pectoris Status: Chronic (11) Acute metabolic encephalopathy ICD Code: G93.41 - Metabolic encephalopathy Status: Acute (12) Prostate cancer metastatic to multiple sites ICD Code: C61 - Malignant neoplasm of prostate Status: Chronic (13) Ischemic cardiomyopathy ICD Code: I25.5 - Ischemic cardiomyopathy Status: Chronic (14) Duodenal ulcer ICD Code: K26.9 - Duodenal ulcer, unspecified as acute or chronic, without hemorrhage or perforation (15) Hypocalcemia ICD Code: E83.51 - Hypocalcemia Assessment and Plan 1. Severe anemia d/t hematuria, gi bleed s/p EGD 06/13/17 showing duodenal ulcer and gastritis s/p Transfusion total 4 units PRBCs H&H stable today Continue Protonix Appreciate input from gastroenterology, Monitor H&H, transfuse when necessary hemoglobin less than 7 or active bleeding 2. Acute renal failure, obstructive, likely ATN - improving today creatinine 5 , potassium normal Status post cystoscopy 06/15 with partial resection of bladder mass presumably metastatic from known prostate cancer, ureteral stents were unable to be placed Status post emergent bilateral nephrostomy tubes 06/15 with interventional radiology BUN/creatinine 90/6.04 on admission Secondary to obstructive uropathy with bilateral hydronephrosis Nephrology and urology consulted, appreciate recommendations Hold all nephrotoxic drugs Monitor renal function and urine output IVF per nephrology - NS with 75 meq NaHCO3 at 100 ml/hr - monitor for fluid overload 3. Pneumonia CXR 06/12 showed bilateral lower lobe infiltrates with consolidation on the left repeat cxr today Status post 6 days of Zithromax will DC. Continue Rocephin (day 6) 4. Metastatic prostate cancer Patient with known prostate ca and accompanying metastatic disease to bone, bladder, lost to follow up Appreciate input from oncology -consideration to systemic chemotherapy after DC, currently not a candidate 5. Known chronic systolic CHF, ischemic cardiomyopathy with EF 15% in 2007, s/p stent to LAD at that time by Dr. Scott 2-D echo 06/16 with LVEF of 30-35%, mildly dilated left ventricle, mild tricuspid and mitral valve regurgitation Cardiology following EKG with possible lateral ischemic changes On isosorbide mononitrate, coreg no asa due to bleeding no acei due to ARF 6. Hypertension Continue hydralazine 50 mg every 8 hourly, coreg monitor BP trends and adjust medications as needed 7. CAD/Elevated troponin s/p LAD stent in 2007 Troponin 0.07, suspect secondary to renal failure Acs ruled out cardiolofy ff/Leeann - conservative care 8. Acute metabolic/uremic encephalopathy Reorient DCed opioids, tylenol for pain 9. T2DM Continue with sliding scale insulin and Accu-Cheks. Blood glucose in the 100 -200 trend. 10. Hypocalcemia and hyperphosphatemia Start renvela monitor BMP DVT prophylaxis: Chemical anti-prophylactic contraindicated secondary to GI bleed as well as hematuria.. Bilateral SCDs Poor prognosis. No family contact - exwife listed as only contact Consulted palliative care Problem Qualifiers (1) GI bleed: Qualified Codes: K92.2 - Gastrointestinal hemorrhage, unspecified Robina Tillman MD Jun 17, 2017 11:48
[2017-06-17] MEDS: INSULIN ASPART SUPPLEMENTAL SCALE SQ SCH ×3 (12:00→22:30)
[2017-06-17] MEDS ORDERED: SEVELAMER CARBONATE 800 MG TAB PO SCH (12:00)
[2017-06-17] MEDS ORDERED: PILL SPLITTER OTHER PRN (12:00)
[2017-06-17] MEDS: ISOSORBIDE MONONITRATE 60 MG TAB PO SCH (12:59)
[2017-06-17] MEDS: CALCIUM ACETATE 667 MG CAP PO SCH ×2 (13:00→17:49)
[2017-06-17] MEDS: CARVEDILOL 12.5 MG TAB PO SCH ×2 (13:00→22:16)
[2017-06-17] MEDS: SODIUM CHLORIDE 0.9% FLUSH 10 ML FLUSH IV FLUSH SCH ×2 (13:01→22:17)
[2017-06-17] MEDS: PANTOPRAZOLE SOD 40 MG DELAYED RELEASE TAB PO SCH ×2 (13:03→22:16)
--- NOTE | 2017-06-17 14:33 | RADRPT ---
EXAM DATE/TIME: 06/17/2017 14:11 [facility] COMPARISON: No previous studies available for comparison. INDICATIONS : Evaluate for pneumonia MEDICAL HISTORY : Diabetes mellitus type II. HTN, Testicle cancer, CAD, Osteomyelitis, left foot SURGICAL HISTORY : Cardiac cath, Cardiac cath ENCOUNTER: Subsequent ACUITY: 4 - 6 days PAIN SCORE: 0/10 LOCATION: Bilateral chest FINDINGS: A single view of the chest demonstrates mild pulmonary vascular congestion. Mildly tortuous aorta. A number of fractures on the left side. CONCLUSION: Some pulmonary vascular congestion with a tortuous aorta. No focal infiltrate. Doc Cotter MD on June 17, 2017 at 14:29 Board Certified Radiologist. This report was verified electronically.
[2017-06-17] MEDS: ACETAMINOPHEN 500 MG CPLT PO PRN (18:26)
[2017-06-17] MEDS: TAMSULOSIN HCL 0.4 MG CAP PO SCH (22:16)
[2017-06-18] VITALS (10 sets, daily range): BP systolic 109–169; BP diastolic 49–88; PULSE 73–84; RESP 16–20; TEMP 97.8–99.2; O2SAT 92–96
[2017-06-18] MEDS: SUCRALFATE 1 GM/10 ML CUP PO SCH ×5 (00:15→23:48)
[2017-06-18] MEDS: SODIUM BICARBONATE 8.4% INJ 75 MEQ in SODIUM CHLOR 0.45% 1000 ML INJ 1,000 ML IV SCH ×2 (05:34→17:19)
[2017-06-18] MEDS: hydrALAZINE HCL 50 MG TAB PO SCH ×3 (05:35→21:36)
[2017-06-18 08:06] LABS: AUTOMATED NEUTROPHIL # 6.8 TH/MM3 (1.8-7.7); BASOPHIL % 0.3 % (0.0-2.0); EOSINOPHIL # 0.2 TH/MM3 (0-0.4); EOSINOPHIL % 2.5 % (0.0-4.0); HEMATOCRIT 31.9 % (39.0-51.0); HEMO FLAGS DIFF FINAL; LYMPH % 6.5 % (9.0-44.0); LYMPHOCYTE # 0.6 TH/MM3 (1.0-4.8); MEAN CELL VOLUME 78.8 FL (80.0-100.0); MEAN CORPUSCULAR HEMOGLOBIN 25.9 PG (27.0-34.0); MEAN CORPUSCULAR HGB CONC 32.8 % (32.0-36.0); MONO % 12.1 % (0.0-8.0); NEUT % 78.6 % (16.0-70.0); PLATELET COUNT 197 TH/MM3 (150-450); RED BLOOD COUNT 4.05 MIL/MM3 (4.50-5.90); RED CELL DISTRIBUTION WIDTH 24.1 % (11.6-17.2); WHITE BLOOD COUNT 8.6 TH/MM3 (4.0-11.0)
[2017-06-18 08:42] LABS: BICARBONATE 19.5 MEQ/L (21.0-32.0); POTASSIUM 3.5 MEQ/L (3.5-5.1)
--- NOTE | 2017-06-18 08:48 | PD.CARD.PN ---
Subjective Subjective Remarks More awake and alert. Denies CP, dyspnea, dizziness, palpitations, abdominal pain, nausea. Objective Medications Item Value Date Time Hydralazine HCl 75 mg 06/17/17 1400 (Apresoline) Q8HR/PO 06/18/17 0535 Isosorbide 120 mg 06/17/17 0900 Mononitrate DAILY/PO 06/17/17 1259 (Imdur) Carvedilol 25 mg 06/12/17 0900 (Coreg) BID/PO 06/17/17 3636 Current Medications Medications (Trade) Dose Ordered Sig/Jerzy Route Start Time Stop Time Status Last Admin (NS Flush) 2 ml UNSCH PRN IV FLUSH 06/12/17 05:00 06/13/17 10:31 (NS Flush) 2 ml BID IV FLUSH 06/12/17 09:00 06/17/17 22:17 (Zofran Inj) 4 mg Q6H PRN IV PUSH 06/12/17 05:00 06/12/17 10:33 (D50w (Vial) Inj) 50 ml UNSCH PRN IV PUSH 06/12/17 05:30 (Glucagon Inj) 1 mg UNSCH PRN OTHER 06/12/17 05:30 (NovoLOG SUPPLEMENTAL SCALE) 1 ACHS SLIDING SCALE SQ 06/12/17 08:00 06/17/17 22:30 (Coreg) 25 mg BID PO 06/12/17 09:00 06/17/17 22:16 (Flomax) 0.4 mg HS PO 06/12/17 21:00 06/17/17 22:16 Ceftriaxone Sodium 1000 mg/ Sodium Chloride 100 ml @ 200 mls/hr Q24H IV 06/12/17 08:00 06/18/17 21:00 06/17/17 10:04 (Duoneb Neb) 1 ampule Q4HR NEB PRN NEB 06/12/17 05:45 (Catapres) 0.1 mg Q6H PRN PO 06/12/17 06:00 06/17/17 17:50 (Carafate Liq) 1 gm ACHS PO 06/12/17 12:00 06/18/17 00:15 (Xanax) 0.5 mg Q8H PRN PO 06/12/17 12:00 06/17/17 18:26 (Protonix) 40 mg BID PO 06/13/17 21:00 06/17/17 22:16 Sodium Bicarbonate 75 meq/Sodium Chloride 1,075 ml @ 100 mls/hr [id number] IV 06/15/17 07:00 06/18/17 05:34 (Tylenol) 500 mg Q4H PRN PO 06/16/17 09:45 06/17/17 18:26 (Imdur) 120 mg DAILY PO 06/17/17 09:00 06/17/17 12:59 (Apresoline) 75 mg Q8HR PO 06/17/17 14:00 06/18/17 05:35 (Phoslo) 1,334 mg TID PO 06/17/17 13:00 06/17/17 17:49 (Pill Splitter) 1 ea UNSCH PRN OTHER 06/17/17 12:00 Vital Signs / I&O Vital Signs Date Time Temp Pulse Resp B/P (MAP) Pulse Ox O2 Delivery O2 Flow Rate FiO2 06/18/17 04:10 78 06/18/17 04:07 97.8 73 16 156/85 (108) 96 06/18/17 00:11 98.2 80 18 169/88 (115) 96 06/17/17 23:59 78 06/17/17 20:10 97.6 80 20 184/97 (126) 96 06/17/17 20:10 97 Room Air 06/17/17 20:02 82 06/17/17 17:45 98.6 84 20 94 06/17/17 17:45 183/100 (127) 06/17/17 12:54 98.7 97 20 194/112 (139) 97 I/O 06/17/17 06/17/17 06/17/17 06/18/17 06/18/17 06/18/17 07:00 15:00 23:00 07:00 15:00 23:00 Intake Total 220 ml 1780 ml Output Total 3350 ml 3775 ml 5260 ml 4355 ml 250 ml Balance -3350 ml -3775 ml -5040 ml -2575 ml -250 ml Intake Oral 120 ml 780 ml IV Total 100 ml 1000 ml Output Urine Total 50 ml 150 ml Drainage Total 3300 ml 3775 ml 5110 ml 4355 ml 250 ml Physical Exam GENERAL: Well developed, well nourished. No acute distress. HEENT: Jugular venous pressure hard to assess. CHEST: Lungs clear to auscultation anteriorly. CARDIAC: Regular rate and rhythm without S3, S4, or murmur. ABDOMEN: Soft, nontender, no hepatosplenomegaly. Bowel sounds present. EXTREMITIES: No clubbing, cyanosis, 1+ pretibial edema. Laboratory Laboratory Tests Test 06/18/17 07:41 White Blood Count 8.6 TH/MM3 Red Blood Count 4.05 MIL/MM3 Hemoglobin 10.5 GM/DL Hematocrit 31.9 % Mean Corpuscular Volume 78.8 FL Mean Corpuscular Hemoglobin 25.9 PG Mean Corpuscular Hemoglobin Concent 32.8 % Red Cell Distribution Width 24.1 % Platelet Count 197 TH/MM3 Mean Platelet Volume 7.0 FL Neutrophils (%) (Auto) 78.6 % Lymphocytes (%) (Auto) 6.5 % Monocytes (%) (Auto) 12.1 % Eosinophils (%) (Auto) 2.5 % Basophils (%) (Auto) 0.3 % Neutrophils # (Auto) 6.8 TH/MM3 Lymphocytes # (Auto) 0.6 TH/MM3 Monocytes # (Auto) 1.0 TH/MM3 Eosinophils # (Auto) 0.2 TH/MM3 Basophils # (Auto) 0.0 TH/MM3 CBC Comment DIFF FINAL Differential Comment Assessment and Plan Problem List: (1) Hypertension ICD Codes: I10 - Essential (primary) hypertension Status: Chronic Plan: Stable overnight. More awake and alert this morning. No recurrent hypotension, bradycardia that patient experienced post cystoscopy. Patient now remains hypertensive. He did have dynamic lateral T wave changes on EKGs suggesting myocardial ischemia post cystoscopy. Not much else to offer patient from cardiac standpoint. Rec continued conservative cardiac management. Can increase hydralazine for better BP control. Will f/u as needed. (2) CAD (coronary artery disease) ICD Codes: I25.10 - Atherosclerotic heart disease of [place] coronary artery without angina pectoris Status: Chronic Plan: History of stent of ostium of LAD 2007. No definite complaints of angina. Troponin only minimally increased, and in the setting of renal insufficiency. He did have dynamic lateral T wave changes on EKGs suggesting ischemia. Rec conservative cardiac evaluation and therapy. (3) Ischemic cardiomyopathy ICD Codes: I25.5 - Ischemic cardiomyopathy Status: Chronic Plan: EF 10-15% by cath and echo in 2007. EF reportedly 30-35% by echo this admission. Continue beta maria, no LAURO-I with his renal insufficiency. Code Status full code Discussed Condition With patient Problem Qualifiers (1) Hypertension: Qualified Codes: I10 - Essential (primary) hypertension (2) CAD (coronary artery disease): Qualified Codes: I25.10 - Atherosclerotic heart disease of [place] coronary artery without angina pectoris Nikita Bradshaw MD Jun 18, 2017 08:48
[2017-06-18 09:06] LABS: CALCIUM-PROTEIN CORRECTED 7.2 MG/DL (8.5-10.1)
[2017-06-18] MEDS: cefTRIAXone INJ 1,000 MG in SODIUM CHLORIDE 0.9% INJ 100 ML IV SCH (09:20)
[2017-06-18] MEDS: ISOSORBIDE MONONITRATE 60 MG TAB PO SCH (09:21)
[2017-06-18] MEDS: PANTOPRAZOLE SOD 40 MG DELAYED RELEASE TAB PO SCH ×2 (09:24→20:52)
[2017-06-18] MEDS: CARVEDILOL 12.5 MG TAB PO SCH ×2 (09:25→20:52)
[2017-06-18] MEDS: CALCIUM ACETATE 667 MG CAP PO SCH ×2 (09:25→13:00)
[2017-06-18] MEDS: INSULIN ASPART SUPPLEMENTAL SCALE SQ SCH ×4 (09:34→21:03)
--- NOTE | 2017-06-18 11:45 | HHI.PR ---
Subjective Remarks Less confused today. Denies pain. Sitting up. 13,000 mL urine output over past 24 hrs. Objective Vitals Vital Signs Date Time Temp Pulse Resp B/P (MAP) Pulse Ox O2 Delivery O2 Flow Rate FiO2 06/18/17 04:10 78 06/18/17 04:07 97.8 73 16 156/85 (108) 96 06/18/17 00:11 98.2 80 18 169/88 (115) 96 06/17/17 23:59 78 06/17/17 20:10 97.6 80 20 184/97 (126) 96 06/17/17 20:10 97 Room Air 06/17/17 20:02 82 06/17/17 17:45 98.6 84 20 94 06/17/17 17:45 183/100 (127) 06/17/17 12:54 98.7 97 20 194/112 (139) 97 I/O 06/17/17 06/17/17 06/17/17 06/18/17 06/18/17 06/18/17 07:00 15:00 23:00 07:00 15:00 23:00 Intake Total 220 ml 1780 ml Output Total 3350 ml 3775 ml 5260 ml 4355 ml 250 ml Balance -3350 ml -3775 ml -5040 ml -2575 ml -250 ml Intake Oral 120 ml 780 ml IV Total 100 ml 1000 ml Output Urine Total 50 ml 150 ml Drainage Total 3300 ml 3775 ml 5110 ml 4355 ml 250 ml Result Diagram: 06/18/17 0741 06/18/17 07 Objective Remarks GENERAL: Well-nourished, well-developed patient. SKIN: Warm and dry. HEAD: Normocephalic. EYES: No scleral icterus. No injection or drainage. NECK: Supple, trachea midline. No JVD or lymphadenopathy. CARDIOVASCULAR: Regular rate and rhythm without murmurs, gallops, or rubs. RESPIRATORY: Breath sounds equal bilaterally. No accessory muscle use. GASTROINTESTINAL: Bowel sounds present. Abdomen soft, non-tender, distended. EXTREMITIES: trace pedal edema. NEUROLOGICAL: Awake alert oriented to month, year. mildly confused. A/P Problem List: (1) GI bleed ICD Code: K92.2 - Gastrointestinal hemorrhage, unspecified Status: Acute (2) Acute on chronic renal failure ICD Code: N17.9 - Acute kidney failure, unspecified; N18.9 - Chronic kidney disease, unspecified Status: Acute (3) Diabetes mellitus, type 2 ICD Code: E11.9 - Diabetes mellitus, type 2 Status: Chronic (4) Hydronephrosis ICD Code: N13.30 - Unspecified hydronephrosis Status: Acute (5) Anemia due to acute blood loss ICD Code: D62 - Acute posthemorrhagic anemia Status: Acute (6) Hematuria ICD Code: R31.9 - Hematuria, unspecified Status: Acute (7) Fall ICD Code: W19.XXXA - Unspecified fall, initial encounter Status: Acute (8) Prostate cancer metastatic to bone ICD Code: C61 - Malignant neoplasm of prostate; C79.51 - Secondary malignant neoplasm of bone Status: Chronic (9) Chronic systolic CHF (congestive heart failure) ICD Code: I50.22 - Chronic systolic (congestive) heart failure Status: Chronic (10) CAD (coronary artery disease), [place] coronary artery ICD Code: I25.10 - Atherosclerotic heart disease of [place] coronary artery without angina pectoris Status: Chronic (11) Acute metabolic encephalopathy ICD Code: G93.41 - Metabolic encephalopathy Status: Acute (12) Prostate cancer metastatic to multiple sites ICD Code: C61 - Malignant neoplasm of prostate Status: Chronic (13) Ischemic cardiomyopathy ICD Code: I25.5 - Ischemic cardiomyopathy Status: Chronic (14) Duodenal ulcer ICD Code: K26.9 - Duodenal ulcer, unspecified as acute or chronic, without hemorrhage or perforation (15) Hypocalcemia ICD Code: E83.51 - Hypocalcemia Status: Acute (16) ATN (acute tubular necrosis) ICD Code: N17.0 - Acute kidney failure with tubular necrosis Status: Acute Assessment and Plan 1. Severe anemia d/t hematuria, gi bleed s/p EGD 06/13/17 showing duodenal ulcer and gastritis s/p Transfusion total 4 units PRBCs H&H stable today Continue Protonix Appreciate input from gastroenterology, Monitor H&H, transfuse when necessary hemoglobin less than 7 or active bleeding 2. Acute renal failure, obstructive due to bladder mass, likely ATN - improving today creatinine 3, potassium normal - Diuresed over 13,000 mL over past 24 hours Status post cystoscopy 06/15 with partial resection of bladder mass presumably metastatic from known prostate cancer, ureteral stents were unable to be placed Status post emergent bilateral nephrostomy tubes 06/15 with interventional radiology Nephrology and urology consulted, appreciate recommendations Hold all nephrotoxic drugs Monitor renal function and urine output IVF per nephrology - NS with 75 meq NaHCO3 at 100 ml/hr - monitor for fluid overload 3. Pneumonia CXR 06/12 showed bilateral lower lobe infiltrates with consolidation on the left repeat cxr today Status post 6 days of Zithromax will DC. Complete Rocephin (day 7 today) 4. Metastatic prostate cancer Patient with known prostate ca and accompanying metastatic disease to bone, bladder, lost to follow up Appreciate input from oncology -consideration to systemic chemotherapy after DC, currently not a candidate 5. Known chronic systolic CHF, ischemic cardiomyopathy with EF 15% in 2007, s/p stent to LAD at that time by Dr. Scott 2-D echo 06/16 with LVEF of 30-35%, mildly dilated left ventricle, mild tricuspid and mitral valve regurgitation Cardiology following EKG with possible lateral ischemic changes On isosorbide mononitrate, coreg no asa due to bleeding no acei due to ARF 6. Hypertension Continue hydralazine 50 mg every 8 hourly, coreg monitor BP trends and adjust medications as needed 7. CAD/Elevated troponin s/p LAD stent in 2007 Troponin 0.07, suspect secondary to renal failure Acs ruled out cardiolofy ff/Leeann - conservative care 8. Acute metabolic/uremic encephalopathy - improving Reorient sitter DCed opioids, tylenol for pain 9. T2DM Continue with sliding scale insulin and Accu-Cheks. Blood glucose in the 100 -200 trend. 10. Hypocalcemia and hyperphosphatemia Started on calcium acetate per nephrology/Dr. Allen monitor BMP DVT prophylaxis: Chemical anti-prophylactic contraindicated secondary to GI bleed as well as hematuria.. Bilateral SCDs No family contact - exwife listed as only contact Consulted palliative care Problem Qualifiers (1) GI bleed: Qualified Codes: K92.2 - Gastrointestinal hemorrhage, unspecified Robina Tillman MD Jun 18, 2017 11:45
[2017-06-18] MEDS: ONDANSETRON HCL 4 MG/2 ML VIAL IV PUSH PRN (13:00)
[2017-06-18] MEDS: SODIUM CHLORIDE 0.9% FLUSH 10 ML FLUSH IV FLUSH SCH ×2 (13:07→20:53)
--- NOTE | 2017-06-18 13:07 | PD.CONS ---
Consult Service Palliative Care Consult Requested By Dr. Tillman. Primary Care Physician Unknown Reason for Consultation a. To assist with evaluation and management of symptoms including: Restlessness, debility. b. To assist medical decision maker(s) with: better understanding of current medical conditions; weighing benefits/burdens of medical treatment options; making medical treatment decisions. . HPI History of Present Illness Mr. Bravo is a 57-year-old male with a medical history significant for stage IV prostate cancer, insulin-dependent diabetes mellitus type 2, hypertension, CAD and CHF. Patient presented to ED on 06/12/17 with complaints of generalized weakness, epigastric pain, urinary retention and GI bleed. Reporting intermittent coffee-ground emesis for the previous weeks. ED workup to include chest x-ray revealing bilateral lower lobe infiltrates, CT abdomen and pelvis revealing bilateral obstructive uropathy associated with diffuse thickening of the wall of the urinary bladder, severe bilateral hydronephrosis and hydroureter, retroperitoneal, pelvic and inguinal adenopathy, multifocal blastic metastatic disease, pathological fracture of the right pubic bone and possible posterior column of the right acetabulum. Laboratory workup on presentation revealing WBC 9.0, Hgb 7.1, platelet count 392. Sodium 140, potassium 5.1, BUN/creatinine 90/6.04, liver enzymes within normal limits. Patient was transfused 2 packs of RBC and admitted for further management. Oncology, Dr. Mosley consulted on 06/13/17. Patient was continued on hormone blockade therapy. GI, Dr. Vargas consulted on 06/12/17 for evaluation of GI bleed. Patient was placed on PPI IV drip, underwent EGD with biopsy on . Pathology results still pending. Urology, Dr. Gutierrez consulted on . Patient underwent cystoscopy and palliative partial transurethral resection of bladder mass on 06/15/17. Placement of bilateral ureteral catheters unsuccessful secondary to advanced cancer, tumor burden. Subsequently , patient underwent placement of bilateral nephrostomy tubes on 06/15/17. Nephrology, Dr. Allen consulted on 06/14/17 secondary to elevated BUN and creatinine as well as metabolic acidosis. Patient with acute kidney injury with obstructive uropathy, patient was placed on bicarbonate drip. Renal function improvement since placement of nephrostomy tubes. BUN/creatinine today 63/3.92 from 83/5.28 yesterday. Patient with history of hypertension and coronary artery disease, cardiology following. History of stents in 2007, frequent angina pectoris. Echo 06/16/17 revealing EF of 30-35%, mild mitral and tricuspid valve regurgitation. Prior echo by cath in 2007 revealing EF of 10-15%. Palliative care has been consulted for further clarifications of goals of care in the setting of progressive metastatic disease with multiple comorbidities. Reviewed patient's past medical history. Recent prior hospitalization from to 02/20/17 for rami fracture secondary to mechanical fall. Prior hospitalization from 02/12 to 02/14/17 secondary to hematuria. Prior hospitalization from 07/26 to 08/02/16 secondary to osteomyelitis of left first metatarsal status post I&D with bone biopsy. Patient was discharged home with home health. Patient seen in his room. He was resting in bed in no acute distress. Sitter at bedside since yesterday secondary to delirium, agitation/restlessness. Patient awake, alert to self and location. He was able to tell me that he was hospitalized secondary to being sick but unable to elaborate further. Limited past medical history and psychosocial history obtained. Patient denied shortness of breath, pain or discomfort at this time. Verbalized feeling frustrated and wishing to go home. Restless at times, following some instructions. Telephone conversation with patient's ex- Erna Bravo. She presented as patient's healthcare surrogate decision maker, pending copy of living will, advanced directives. Patient has 2 twin daughters Afshan and Alondra. Reviewed patient's ex- that in the absence of advance directives, healthcare proxy decision-making falls to patient's daughter's. Ex- verbalized understanding. Obtain patient's past medical history and psychosocial history. Ex- report that they were previously for 17 years, in 2017, however, they have been living together since 2013. Planning and remarrying this year. Patient residing with ex- prior to this hospitalization. Reviewed patient's diagnosis of stage IV prostate cancer, metastasis to bone and likely bladder. Reviewed that disease is metastatic and not curable. Unclear at this time is patient will be a candidate for outpatient systemic therapy given current performance status, delirium. Palliative care requested to meet with patient's ex- and 2 daughters, ex- to call palliative care with date and time of this meeting. CODE STATUS reviewed, patient full code at this time. Case reviewed with bedside RN and field nurse case manager. Patient's family asking for information on care home facilities for rehabilitation. health and safety manager notified. . Function/Cognitive Trajectory Patient residing in private home with ex- prior to this hospitalization. Independent with all ADLs. Ambulating with cane, alternating with Rollator walker. Insulin-dependent, no oxygen use. Confusion reported since these hospitalization. . Review of Systems ROS Limitations: Altered Mental Status, Poor Historian Constitutional: COMPLAINS OF: Weight loss, Change in appetite, DENIES: Fever, Pain, Generalized weakness Eyes: DENIES: Eye inflammation, Eye pain Ears, nose, mouth, throat: DENIES: Hearing loss, Nasal discharge, Ear Pain, Running Nose, Epistaxis Respiratory: DENIES: Apneas, Cough, Sputum production Cardiovascular: COMPLAINS OF: Chest pain, Dyspnea on Exertion, DENIES: Syncope , Lower Extremity Edema Gastrointestinal: DENIES: Abdominal pain, Nausea, Vomiting, Difficulty Swallowing Genitourinary: COMPLAINS OF: Hematuria Musculoskeletal: COMPLAINS OF: Joint pain, DENIES: Decreased range of motion Integumentary: DENIES: Pruritus Hematologic/Lymphatics: COMPLAINS OF: Bruising Immunologic/Allergic: DENIES: Eczema Neurologic: DENIES: Localized weakness, Tremor Psychiatric: COMPLAINS OF: Anxiety, Confusion, Agitation Other ROS: Limited ROS secondary to patient's clinical condition, delirious. ROS obtained from patient, patient's family and clinical observation. . Past Family Social History Coded Allergies: glyburide (Verified Allergy, Severe, RASH, 06/12/17) amlodipine (Verified Allergy, Unknown, 06/12/17) rhabdomyolysis atorvastatin (Verified Allergy, Unknown, 06/12/17) rhabdomyolysis metformin (Verified Allergy, Unknown, Rash, 06/12/17) pravastatin (Verified Allergy, Unknown, 06/12/17) rhabdomyolysis simvastatin (Verified Allergy, Unknown, 06/12/17) rhabdomyolysis Past Medical History Stage IV prostate cancer, metastases to bone and bladder Insulin-dependent diabetes mellitus type 2 Hypertension CAD CHF Testicular cancer Depression . Past Surgical History Stent placement in 2007 Orchiectomy Foot surgery . Reported Medications Phenazopyridine (Phenazopyridine HCl) 100 Mg Tab 100 Mg PO Q8H PRN Hydrocodone-Acetaminophen 10-325 mg Tab 1 Tab PO Q6HR PRN Commode 3-in-1 (Device) 1 Mis Mis Ea .ROUTE DIRECTED Walker with Front Wheels (Device) 1 Mis Mis Ea .ROUTE DIRECTED Wheelchair (Device) 1 Mis Mis Ea .ROUTE DIRECTED Lisinopril 40 Mg Tab 40 Mg PO BID Lantus Solostar Pen Inj (Insulin Glargine) 300 Unit/3 Ml Pen 48 Units SQ HS Aspirin EC (Aspirin) 81 Mg Tabdr 81 Mg PO DAILY Novolog Flexpen Inj (Insulin Aspart) 300 Unit/3 Ml Pen SQ TIDAC Gabapentin 300 Mg Cap 300 Mg PO BID Coreg (Carvedilol) 25 Mg Tab 25 Mg PO BID Flomax (Tamsulosin HCl) 0.4 Mg Cap 0.4 Mg PO HS . Current Medications Medications (Trade) Dose Ordered Sig/Jerzy Route Start Time Stop Time Status Last Admin (NS Flush) 2 ml UNSCH PRN IV FLUSH 06/12/17 05:00 06/13/17 10:31 (NS Flush) 2 ml BID IV FLUSH 06/12/17 09:00 06/17/17 22:17 (Zofran Inj) 4 mg Q6H PRN IV PUSH 06/12/17 05:00 06/12/17 10:33 (D50w (Vial) Inj) 50 ml UNSCH PRN IV PUSH 06/12/17 05:30 (Glucagon Inj) 1 mg UNSCH PRN OTHER 06/12/17 05:30 (NovoLOG SUPPLEMENTAL SCALE) 1 ACHS SLIDING SCALE SQ 06/12/17 08:00 06/18/17 09:34 (Coreg) 25 mg BID PO 06/12/17 09:00 06/18/17 09:25 (Flomax) 0.4 mg HS PO 06/12/17 21:00 06/17/17 22:16 Ceftriaxone Sodium 1000 mg/ Sodium Chloride 100 ml @ 200 mls/hr Q24H IV 06/12/17 08:00 06/18/17 21:00 06/18/17 09:20 (Duoneb Neb) 1 ampule Q4HR NEB PRN NEB 06/12/17 05:45 (Catapres) 0.1 mg Q6H PRN PO 06/12/17 06:00 06/17/17 17:50 (Carafate Liq) 1 gm ACHS PO 06/12/17 12:00 06/18/17 09:21 (Xanax) 0.5 mg Q8H PRN PO 06/12/17 12:00 06/17/17 18:26 (Protonix) 40 mg BID PO 06/13/17 21:00 06/18/17 09:24 Sodium Bicarbonate 75 meq/Sodium Chloride 1,075 ml @ 100 mls/hr [id number] IV 06/15/17 07:00 06/18/17 05:34 (Tylenol) 500 mg Q4H PRN PO 06/16/17 09:45 06/17/17 18:26 (Imdur) 120 mg DAILY PO 06/17/17 09:00 06/18/17 09:21 (Phoslo) 1,334 mg TID PO 06/17/17 13:00 06/18/17 09:25 (Pill Splitter) 1 ea UNSCH PRN OTHER 06/17/17 12:00 (Apresoline) 100 mg Q8HR PO 06/18/17 14:00 Family History Family history is positive for diabetes mellitus, heart disease, and hypertension Patient's father from pancreatic cancer Patient's mother has heart valve replacement . Substance Use Tobacco: None reported. Alcohol: None reported. Prescription med abuse: None reported. Illicits: None reported. . Psychosocial History Patient originally from [place], [place]. Moved to [place] in 1997. 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 Patient is , previously for 17 years. Has 2 daughters, Afshan and Alondra who are twins. . Spiritual/Cultural Factors Nigerien Bahai. . Living Will: Completed, but not made available Health Care Surrogate: Completed, but not made available Health Care Surrogate(s): Advance directives reported as completed. Patient's ex- Erna Bravo presented herself as healthcare surrogate decision maker. Pending copy of advance directives. In the absence of AD and as per [place] statute, healthcare proxy decision-making would fall to patient's 2 daughters Afshan and Alondra. . Family/friends goals: Family electing to maximize medical management. Ongoing goals of care conversation. . Ethical and Legal Issues Patient unable to participating medical decision-making secondary to confusion/ delirium. . Physical Exam Vital Signs Date Time Temp Pulse Resp B/P (MAP) Pulse Ox O2 Delivery O2 Flow Rate FiO2 06/18/17 04:10 78 06/18/17 04:07 97.8 73 16 156/85 (108) 96 06/18/17 00:11 98.2 80 18 169/88 (115) 96 06/17/17 23:59 78 06/17/17 20:10 97.6 80 20 184/97 (126) 96 06/17/17 20:10 97 Room Air 06/17/17 20:02 82 06/17/17 17:45 98.6 84 20 94 06/17/17 17:45 183/100 (127) 06/17/17 12:54 98.7 97 20 194/112 (139) 97 06/18/17 06/19/17 19:00 07:00 Output Total 250 ml Balance -250 ml Drainage Total 250 ml Exam CONSTITUTIONAL/GENERAL: This is an adequately nourished patient, in no apparent distress. TUBES/LINES/DRAINS: PIV, nephrostomy tubes, Celaya catheter. SKIN: No jaundice, rashes, or lesions. Ecchymoses on upper extremities. No wounds seen anteriorly. Skin temperature appropriate. Not diaphoretic. HEAD: Atraumatic. Normocephalic. EYES: Pupils equal and round and reactive. Extraocular motions intact. No scleral icterus. No injection or drainage. Fundi not examined. ENT: Hearing grossly normal. Nose without bleeding or purulent drainage. Moist oral mucosa. NECK: Trachea midline. Supple, nontender. CARDIOVASCULAR: Regular rate and rhythm without murmurs, gallops, or rubs. No JVD. Peripheral pulses symmetric. RESPIRATORY/CHEST: Symmetric, unlabored respirations. Clear to auscultation. Breath sounds equal bilaterally. GASTROINTESTINAL: Abdomen soft, non-tender, nondistended. No guarding. Bowel sounds present. GENITOURINARY: Without palpable bladder distension. Celaya catheter in place with small amount of hematuria. Bilateral nephrostomy tubes in place. MUSCULOSKELETAL: Extremities without clubbing, cyanosis. Bilateral lower extremity edema. No mottling or clubbing. NEUROLOGICAL: Awake and alert x self, place. Disoriented as to situation. Intermittently following simple commands. Moves all extremities. PSYCHIATRIC: Anxious, restless. Tearful at times. Poor safety awareness. . Diagnostic Tests Laboratory Laboratory Tests Test 06/15/17 13:57 06/16/17 06:44 06/17/17 06:51 06/18/17 07:41 Hemoglobin 7.7 GM/DL (13.0-17.0) 9.6 GM/DL (13.0-17.0) 9.8 GM/DL (13.0-17.0) 10.5 GM/DL (13.0-17.0) Hematocrit 24.0 % (39.0-51.0) 29.9 % (39.0-51.0) 30.7 % (39.0-51.0) 31.9 % (39.0-51.0) White Blood Count 6.9 TH/MM3 (4.0-11.0) 8.4 TH/MM3 (4.0-11.0) 8.6 TH/MM3 (4.0-11.0) Red Blood Count 3.71 MIL/MM3 (4.50-5.90) 3.81 MIL/MM3 (4.50-5.90) 4.05 MIL/MM3 (4.50-5.90) Mean Corpuscular Volume 80.4 FL (80.0-100.0) 80.5 FL (80.0-100.0) 78.8 FL (80.0-100.0) Mean Corpuscular Hemoglobin 25.8 PG (27.0-34.0) 25.7 PG (27.0-34.0) 25.9 PG (27.0-34.0) Mean Corpuscular Hemoglobin Concent 32.1 % (32.0-36.0) 31.9 % (32.0-36.0) 32.8 % (32.0-36.0) Red Cell Distribution Width 24.0 % (11.6-17.2) 24.1 % (11.6-17.2) 24.1 % (11.6-17.2) Platelet Count 197 TH/MM3 (150-450) 194 TH/MM3 (150-450) 197 TH/MM3 (150-450) Mean Platelet Volume 7.7 FL (7.0-11.0) 7.3 FL (7.0-11.0) 7.0 FL (7.0-11.0) Neutrophils (%) (Auto) 85.3 % (16.0-70.0) 80.5 % (16.0-70.0) 78.6 % (16.0-70.0) Lymphocytes (%) (Auto) 6.8 % (9.0-44.0) 6.8 % (9.0-44.0) 6.5 % (9.0-44.0) Monocytes (%) (Auto) 7.5 % (0.0-8.0) 9.0 % (0.0-8.0) 12.1 % (0.0-8.0) Eosinophils (%) (Auto) 0.2 % (0.0-4.0) 3.2 % (0.0-4.0) 2.5 % (0.0-4.0) Basophils (%) (Auto) 0.2 % (0.0-2.0) 0.5 % (0.0-2.0) 0.3 % (0.0-2.0) Neutrophils # (Auto) 5.9 TH/MM3 (1.8-7.7) 6.8 TH/MM3 (1.8-7.7) 6.8 TH/MM3 (1.8-7.7) Lymphocytes # (Auto) 0.5 TH/MM3 (1.0-4.8) 0.6 TH/MM3 (1.0-4.8) 0.6 TH/MM3 (1.0-4.8) Monocytes # (Auto) 0.5 TH/MM3 (0-0.9) 0.8 TH/MM3 (0-0.9) 1.0 TH/MM3 (0-0.9) Eosinophils # (Auto) 0.0 TH/MM3 (0-0.4) 0.3 TH/MM3 (0-0.4) 0.2 TH/MM3 (0-0.4) Basophils # (Auto) 0.0 TH/MM3 (0-0.2) 0.0 TH/MM3 (0-0.2) 0.0 TH/MM3 (0-0.2) CBC Comment AUTO DIFF AUTO DIFF DIFF FINAL Differential Comment AUTO DIFF CONFIRMED AUTO DIFF CONFIRMED Ovalocytes 1+ (NORMAL) 1+ (NORMAL) [place] Cells 1+ (NORMAL) 1+ (NORMAL) Acanthocytes OCC (NORMAL) OCC (NORMAL) Blood Urea Nitrogen 98 MG/DL (7-18) 83 MG/DL (7-18) 63 MG/DL (7-18) Creatinine 6.61 MG/DL (0.60-1.30) 5.28 MG/DL (0.60-1.30) 3.92 MG/DL (0.60-1.30) Random Glucose 160 MG/DL (74-106) 188 MG/DL (74-106) 200 MG/DL (74-106) Calcium Level 7.9 MG/DL (8.5-10.1) 7.3 MG/DL (8.5-10.1) 7.1 MG/DL (8.5-10.1) Sodium Level 141 MEQ/L (136-145) 142 MEQ/L (136-145) 145 MEQ/L (136-145) Potassium Level 5.5 MEQ/L (3.5-5.1) 4.7 MEQ/L (3.5-5.1) 3.5 MEQ/L (3.5-5.1) Chloride Level 116 MEQ/L (98-107) 116 MEQ/L (98-107) 115 MEQ/L (98-107) Carbon Dioxide Level 12.7 MEQ/L (21.0-32.0) 12.8 MEQ/L (21.0-32.0) 19.5 MEQ/L (21.0-32.0) Anion Gap 12 MEQ/L (5-15) 13 MEQ/L (5-15) 11 MEQ/L (5-15) Estimat Glomerular Filtration Rate 9 ML/MIN (>89) 11 ML/MIN (>89) 16 ML/MIN (>89) Troponin I 0.15 NG/ML (0.02-0.05) Platelet Estimate NORMAL (NORMAL) Platelet Morphology Comment NORMAL (NORMAL) Keratocytes OCC (NORMAL) Total Protein 6.9 GM/DL (6.4-8.2) 7.0 GM/DL (6.4-8.2) Protein Corrected Calcium 7.4 MG/DL (8.5-10.1) 7.2 MG/DL (8.5-10.1) Phosphorus Level 3.6 MG/DL (2.5-4.9) Result Diagram: 06/18/17 0741 06/18/17 0741 Microbiology Microbiology Date/Time Source Procedure Growth Status 12/12/17 02:55 Urine Catheterized Urine Urine Culture - Final NO GROWTH IN 48 HOURS. Complete Imaging Last Impressions Chest X-Ray 06/17/17 0000 Signed Impressions: Service Date/Time: Saturday, June 17, 2017 14:11 - CONCLUSION: Some pulmonary vascular congestion with a tortuous aorta. No focal infiltrate. Doc Cotter MD Nephrostomy 06/15/17 0000 Signed Impressions: Service Date/Time: Thursday, June 15, 2017 16:45 - CONCLUSION: Uncomplicated nephrostomy tube placement as above. Alessandro Pope MD Abdomen/Pelvis CT 06/12/17 0000 Signed Impressions: Service Date/Time: Monday, June 12, 2017 03:57 - CONCLUSION: 1. Bilateral obstructive uropathy with point of obstruction at ureterovesical junction with associated diffuse concentric thickening of the wall of the urinary bladder. Severe bilateral hydronephrosis and hydroureter. There is a history of prostate cancer. 2. Retroperitoneal, the pelvic, and inguinal adenopathy. 3. Multifocal blastic metastatic disease. Pathologic fractures of the right pubic bone and possible pathologic fracture of the posterior column of the right acetabulum. Werner Estevez MD Procedures * 06/15/17 -cystoscopy and palliative partial transurethral resection of bladder mass * 06/15/17 -bilateral nephrostomy tubes . Patient/Family Conference Present at Family Conference: Patient's ex- Erna Bravo. Family Conference Time (mins): 33 Family Conference Location: Telephone Issues Discussed: * Palliative care role, purpose, approach * Additional medical, psychosocial, and spiritual history * Patients general health, functional status, and cognitive changes in the months leading up to the current hospitalization * Patient/family understanding of the current medical problems -stage IV prostate cancer, multiple other comorbidities, profound physical deconditioning. * Patient/family understanding of prognosis -overall poor prognosis * Patients goals of care as best understood from advance directives and/or conversations and/or values * Current medical treatment options and benefits/burdens of those options * Questions answered to the best of my ability * Palliative care contact information provided * Risks, benefits and limitations of CPR, intubation and mechanical ventilation given stage IV prostate cancer . Assessment and Plan Disease Oriented Problem List: (1) Acute metabolic encephalopathy (2) Chronic systolic CHF (congestive heart failure) (3) Prostate cancer metastatic to multiple sites (4) CAD (coronary artery disease), [place] coronary artery (5) Anemia due to acute blood loss (6) Hypertension Symptom Scale: (1) Agitation 0-10 Scale: 4 Comment: Metabolic encephalopathy (2) Debility 0-10 Scale: Unable to quantify Comment: Progressive, secondary to burden of disease. Pertinent Non-Medical Issues Psychosocial: Patient originally from [place], [place]. Moved to [place] in 1997. 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 Patient is , previously for 17 years. Has 2 daughters, Afshan and Alondra who are twins. Spiritual: Nigerien mu-ism. Legal: Advance directives reported as completed. Pending copy. Ethical issues impacting care: Patient unable to participate in medical decision -making secondary to confusion. . Important Contacts Patient's ex- Erna Bravo Patient's daughter Afshan -pending contact information Patient's daughter Alondra -pending contact information . Prognosis Mr. Bravo is a 57-year-old male with a medical history significant for stage IV prostate cancer, insulin-dependent diabetes mellitus type 2, hypertension, CAD and CHF. Patient presented to ED on 06/12/17 with complaints of generalized weakness, epigastric pain, urinary retention and GI bleed. Clinical course complicated by bilateral obstructive uropathy and hydronephrosis s/p cystoscopy and palliative partial transurethral resection of bladder mass and bilateral nephrostomy tube placement. Patient's overall prognosis is poor given stage IV prostate cancer with metastasis to bone and bladder, multiple comorbidities and profound physical deconditioning. Patient unlikely to be a candidate for outpatient palliative systemic therapy given poor performance status. Patient appears hospice appropriate should patient/ family elects comfort-directed care. . Code Status: Full Code Plan * CODE STATUS: Full code at this time. * HEALTHCARE DECISION-MAKING: Patient unable to participating medical decision- making secondary to confusion, delirium. Patient likely to regain capacity. Advance directives reported as completed. Patient's ex- Erna Bravo presented herself as healthcare surrogate decision maker. Pending copy of advance directives. In the absence of AD and as per [place] statute, healthcare proxy decision-making would fall to patient's 2 daughters Afshan and Alondra. Palliative care recommends shared decision-making with patient's ex - Erna and 2 daughters Afshan and Alondra until advance directives are secured and verified. * GOALS OF CARE: Family electing to maximize current medical management. Likely to discharge to care home facility for physical straightening. Pending family meeting with patient's ex- Erna and 2 daughters Afshan and Alondra for further clarifications of goals of care given overall poor prognosis/ terminal condition. Family meeting date and time to be determined, pending confirmation from family. * SYMPTOMS: = Restlessness/agitation. Unclear etiology -metabolic vs brain metastasis. Most recent brain CT 02/17/17 negative for acute process. Patient currently on Xanax 0.5 q8hr when necessary for anxiety. Received 2 doses yesterday, none today. Sitter at bedside for safety. = Debility, secondary to progression of illness. Family looking into care home facility for physical straightening. Palliative care recommends PT consultation for evaluation and recommendations. * Case discussed with bedside RN and field nurse case manager. * Palliative care contact information has been provided to patient's family. Pending family meeting for further clarifications of goals of care. * Palliative care will continue to follow-up for further clarifications of goals of care as patient's clinical course continues to evolve. . Time Spent Total Floor Time (mins): 68 (Total time to include review and summarization of available medical records to include multiple prior acute hospitalizations and ED visits, physical exam, goals of care conversation with patient's family, case discussion with bedside RN and field nurse case manager.) >50% Counseling/Coord of Care: Yes Thank you for the opportunity to participate in the care of Mr. Bravo. Attestation To help prompt me to consider important information that might be impacting today's encounter and assessment, information from prior notes written by myself or my colleagues may have been "brought forward" into today's note. My signature on this note, however, is an attestation that I personally performed the exam, history, and/or decision-making noted today, and, unless otherwise indicated, the interactions with patient, family, and staff as well as the review of records all occurred today. I also attest that the listed assessment and stated plan reflect my best clinical judgment today based on the combination of historical information, prior notes, and today's exam/ interactions. When time spent is documented, it refers only to time spent today by the signer, or if indicated, combined time spent today by collaborating physician/nurse practitioner. [email or web address] Marei Jun 18, 2017 13:04
[2017-06-18] MEDS ORDERED: MORPHINE SULFATE 2 MG/ML INJ IV PUSH ONE (14:15)
--- NOTE | 2017-06-18 14:16 | PD.ONC.PN ---
Subjective Subjective Remarks (late entry, patient seen at noon) Afebrile overnight. Patient resting in room on bedside commode. Complaining of abdominal pain. Points to LUQ when asked where the pain is. Denies constipation. Objective Data Date Time Temp Pulse Resp B/P (MAP) Pulse Ox O2 Delivery O2 Flow Rate FiO2 06/18/17 04:10 78 06/18/17 04:07 97.8 73 16 156/85 (108) 96 06/18/17 00:11 98.2 80 18 169/88 (115) 96 06/17/17 23:59 78 06/17/17 20:10 97.6 80 20 184/97 (126) 96 06/17/17 20:10 97 Room Air 06/17/17 20:02 82 06/17/17 17:45 98.6 84 20 94 06/17/17 17:45 183/100 (127) 06/18/17 06/18/17 06/18/17 07:00 15:00 23:00 Intake Total 1780 ml Output Total 4355 ml 250 ml Balance -2575 ml -250 ml Result Diagram: 06/18/17 0741 06/18/1741 Laboratory Results Laboratory Tests Test 06/18/17 07:41 White Blood Count 8.6 TH/MM3 Red Blood Count 4.05 MIL/MM3 Hemoglobin 10.5 GM/DL Hematocrit 31.9 % Mean Corpuscular Volume 78.8 FL Mean Corpuscular Hemoglobin 25.9 PG Mean Corpuscular Hemoglobin Concent 32.8 % Red Cell Distribution Width 24.1 % Platelet Count 197 TH/MM3 Mean Platelet Volume 7.0 FL Neutrophils (%) (Auto) 78.6 % Lymphocytes (%) (Auto) 6.5 % Monocytes (%) (Auto) 12.1 % Eosinophils (%) (Auto) 2.5 % Basophils (%) (Auto) 0.3 % Neutrophils # (Auto) 6.8 TH/MM3 Lymphocytes # (Auto) 0.6 TH/MM3 Monocytes # (Auto) 1.0 TH/MM3 Eosinophils # (Auto) 0.2 TH/MM3 Basophils # (Auto) 0.0 TH/MM3 CBC Comment DIFF FINAL Differential Comment Blood Urea Nitrogen 63 MG/DL Creatinine 3.92 MG/DL Random Glucose 200 MG/DL Total Protein 7.0 GM/DL Calcium Level 7.1 MG/DL Phosphorus Level 3.6 MG/DL Sodium Level 145 MEQ/L Potassium Level 3.5 MEQ/L Chloride Level 115 MEQ/L Carbon Dioxide Level 19.5 MEQ/L Anion Gap 11 MEQ/L Estimat Glomerular Filtration Rate 16 ML/MIN Protein Corrected Calcium 7.2 MG/DL Administered Medications Medications (Trade) Dose Ordered Sig/Jerzy Route PRN Reason Start Time Stop Time Status Last Admin Dose Admin Sodium Chloride (NS Flush) 2 ml UNSCH PRN IV FLUSH FLUSH AFTER USING IV ACCESS 06/12/17 05:00 06/13/17 10:31 Sodium Chloride (NS Flush) 2 ml BID IV FLUSH 06/12/17 09:00 06/18/17 13:07 Ondansetron HCl (Zofran Inj) 4 mg Q6H PRN IV PUSH NAUSEA OR VOMITING 06/12/17 05:00 06/18/17 13:00 Insulin Aspart (NovoLOG SUPPLEMENTAL SCALE) 1 ACHS SLIDING SCALE SQ 06/12/17 08:00 06/18/17 13:19 Carvedilol (Coreg) 25 mg BID PO 06/12/17 09:00 06/18/17 09:25 Tamsulosin HCl (Flomax) 0.4 mg HS PO 06/12/17 21:00 06/17/17 22:16 Ceftriaxone Sodium 1000 mg/ Sodium Chloride 100 ml @ 200 mls/hr Q24H IV 06/12/17 08:00 06/18/17 21:00 06/18/17 09:20 Clonidine (Catapres) 0.1 mg Q6H PRN PO SBP>180, DBP>100 06/12/17 06:00 06/17/17 17:50 Sucralfate (Carafate Liq) 1 gm ACHS PO 06/12/17 12:00 06/18/17 13:00 Alprazolam (Xanax) 0.5 mg Q8H PRN PO anxiety 06/12/17 12:00 06/17/17 18:26 Pantoprazole Sodium (Protonix) 40 mg BID PO 06/13/17 21:00 06/18/17 09:24 Sodium Bicarbonate 75 meq/Sodium Chloride 1,075 ml @ 100 mls/hr [id number] IV 06/15/17 07:00 06/18/17 05:34 Acetaminophen (Tylenol) 500 mg Q4H PRN PO musculoskeletal pain 06/16/17 09:45 06/17/17 18:26 Isosorbide Mononitrate (Imdur) 120 mg DAILY PO 06/17/17 09:00 06/18/17 09:21 Calcium Acetate (Phoslo) 1,334 mg TID PO 06/17/17 13:00 06/18/17 13:00 Hydralazine HCl (Apresoline) 100 mg Q8HR PO 06/18/17 14:00 06/18/17 13:00 Objective Remarks GENERAL: Middle aged male sitting up on bedside commode in nad. reporting left sided abdominal pain. SKIN: Warm and dry. HEAD: Normocephalic. EYES: No injection or drainage. NECK: Supple, trachea midline. CARDIOVASCULAR: Regular rate and rhythm RESPIRATORY: Breath sounds equal bilaterally. No accessory muscle use. : bilateral nephrostomy tubes in place, draining yellow urine. GASTROINTESTINAL: Abdomen soft, non-tender, nondistended. EXTREMITIES: No cyanosis MUSCULOSKELETAL: Adequate muscle tone. NEUROLOGICAL: awake and alert, normal speech. Assessment/Plan Problem List: (1) Prostate cancer metastatic to bone ICD Codes: C61 - Malignant neoplasm of prostate; C79.51 - Secondary malignant neoplasm of bone Status: Chronic Plan: --plan for further treatment outpatient once current issues resolved. Treatment History: July 2016-- [place] score of 4 + 4 = 8. tumor involved the prostate bilaterally and extended into the periprosthetic adipose tissue. was initiated on hormone blockade therapy with Lupron injections. --Recently--> developed progressive disease with lymphadenopathy in his right groin. CT scans of the pelvis confirmed the retroperitoneal adenopathy in the left iliac chain. +prominent lymphadenopathy in the pelvic sidewalls. + diffuse bone mets. +incomplete fracture in the left acetabulum and inferior pubic rami and fractures in the right superior inferior pubic rami+bladder wall thickening with a 2.3-cm mass. --bone scan --> widespread osseous metastatic disease involving the thoracic and lumbar spine+ sacral ala bilaterally and right intertrochanteric region. Mets in the proximal humerus and ribs. (2) Severe anemia ICD Codes: D64.9 - Anemia, unspecified Plan: --appears to be secondary to his hematuria. --no evidence of hemolysis. --s/p EGD (3) Hydronephrosis ICD Codes: N13.30 - Unspecified hydronephrosis Status: Acute Plan: --s/p nephrostomy tube placement on 06/17 --Bilateral hydronephrosis with obstruction due to malignancy, bladder mass and gross hematuria. --attempted ureteral stent placement on 06/15 was unsuccessful due tumor burden. --s/p biopsy of bladder mass, awaiting pathology. (4) Acute kidney failure ICD Codes: N17.9 - Acute kidney failure, unspecified Status: Acute Plan: --improved 06/18 after nephrostomy tube placement on 06/17 --due to urinary obstruction and hydronephrosis. Assessment 57y/o male with a history of stage IV prostate cancer admitted with urinary obstruction, hematuria and severe anemia. 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 s/p right-sided orchiectomy. did not receive any adjuvant chemotherapy or radiation treatments. Diabetes type 2 History of coronary stents in 2006. Plan 1. monitor CBC 2. give one time small dose of morphine 3. obtain CT ab/pelvis, hepatic function panel Attending Statement The exam, history, and the medical decision-making described in the above note were completed with the assistance of the mid-level provider. I reviewed and agree with the findings presented. I attest that I had a [id number] encounter with the patient on the same day, and personally performed and documented my assessment and findings in the medical record. Stage IV prostate Cancer and possibly bladder cancer Has obstructive uropathy and MIRYAM s/p nephrostomy tubes I think it would be reasonable to give systemic therapy to palliate obstructive symptoms--Prostate cancer is generally responsive to androgen blockade therapy and addition of systemic therapy would be beneficial in this case. Will consider giving 1st dose of Docetaxel 75mg /m2 while in-patient CT abdomen and pelvis pending Patient wants to pursue aggressive treatment Anemia improving microcytosis persists indicating iron deficiency will give additional IV iron d/w rn o/n events reviewed Problem Qualifiers (1) Acute kidney failure: Qualified Codes: N17.9 - Acute kidney failure, unspecified Agueda Armstrong Jun 18, 2017 14:16 Gonzalez Mosley MD Jun 18, 2017 20:41
[2017-06-18] MEDS ORDERED: DIATRIZOATE MEGLUM/DIATRIZOATE SOD 9 ML CUP PO ONE (14:45)
--- NOTE | 2017-06-18 16:40 | HHI.NPPN ---
Subjective History of Present Illness 7-year-old male with past medical history of adenocarcinoma of the prostate with metastasis, hypertension, diabetes mellitus, ischemic heart disease, chronic kidney disease who was admitted with complaint of nausea, vomiting and abdominal pain. I was called to see the patient because of very high BUN and creatinine. The patient has a history of chronic kidney disease. His creatinine has been around 1.8 to 1.6. Additional Remarks Patient is sleepy, now oriented times 2 , not in distress, clinically same. Review of Systems General General Remarks Unable to give much review of system. Objective Data Data 06/18/17 06/19/17 19:00 07:00 Output Total 650 ml Balance -650 ml Drainage Total 650 ml Vital Signs Date Time Temp Pulse Resp B/P (MAP) Pulse Ox O2 Delivery O2 Flow Rate FiO2 06/18/17 04:10 78 06/18/17 04:07 97.8 73 16 156/85 (108) 96 06/18/17 00:11 98.2 80 18 169/88 (115) 96 06/17/17 23:59 78 06/17/17 20:10 97.6 80 20 184/97 (126) 96 06/17/17 20:10 97 Room Air 06/17/17 20:02 82 06/17/17 17:45 98.6 84 20 94 06/17/17 17:45 183/100 (127) -: 06/18/17 0741 06/18/17 0741 Physical Exam General Appearance: No Acute Distress, Comfortable Eyes Eye Exam: Pupils Equal Neck Neck Exam: Neck Supple, Trachea Midline Pulmonary Resp Exam: Breath Sounds Equal, No Distress, Rhonchi Cardiology CV Exam: Regular, Normal Sinus Rhythm Gastrointestinal/Abdomen GI Exam: Soft, Non-Tender, Bowel Sounds Present Extremeties Extremities Exam: Trace Edema Neurologic Neuro Exam: Alert, Awake Assessment/Plan Assessment Summary: MIRYAM/Acute Renal Failure, Hypertension Electrolyte Assessment: Metabolic Acidosis Problem List: (1) Benign essential hypertension Status: Chronic (2) CAD (coronary artery disease) ICD Codes: I25.10 - Atherosclerotic heart disease of [place] coronary artery without angina pectoris Status: Chronic (3) History of CHF (congestive heart failure) ICD Codes: Z86.79 - Personal history of other diseases of the circulatory system Status: Chronic (4) Diabetes mellitus, type 2 ICD Codes: E11.9 - Diabetes mellitus, type 2 Status: Chronic (5) Prostate CA ICD Codes: C61 - Malignant neoplasm of prostate (6) Hematuria ICD Codes: R31.9 - Hematuria, unspecified Status: Acute (7) Acute on chronic renal failure ICD Codes: N17.9 - Acute kidney failure, unspecified; N18.9 - Chronic kidney disease, unspecified Status: Acute Plan Patient has chronic kidney disease and develop MIRYAM. Most likely due to obstructive uropathy. Had Cystoscopy done. Has bladder tumor removed. Unable to get stent in the ureter. Had bilateral Nephrostomy done on 06/15. BUN and Creatinine much better and acidosis improving. K is now normal. Po4 is now normalized. D/C Phoslo and calcium low , add Oscal. Problem Qualifiers (1) CAD (coronary artery disease): Qualified Codes: I25.10 - Atherosclerotic heart disease of [place] coronary artery without angina pectoris Raquel Allen MD Jun 18, 2017 16:40
[2017-06-18 16:56] LABS: INDIRECT BILIRUBIN 0.3 MG/DL (0.0-0.8); TOTAL BILIRUBIN ADULT 0.5 MG/DL (0.2-1.0)
[2017-06-18] MEDS: TAMSULOSIN HCL 0.4 MG CAP PO SCH (20:52)
[2017-06-18] MEDS: CALCIUM/VITAMIN D 250 MG/125 U TAB PO SCH (20:52)
[2017-06-18] MEDS: INSULIN DETEMIR 100 UNITS/ML VIAL SQ SCH (21:03)
[2017-06-18] MEDS: ACETAMINOPHEN 500 MG CPLT PO PRN (21:44)
[2017-06-18] MEDS: ALPRAZolam 0.5 MG TAB PO PRN (21:44)
[2017-06-19] VITALS (15 sets, daily range): BP systolic 95–139; BP diastolic 50–73; PULSE 64–78; RESP 16–18; TEMP 97.6–99.2; O2SAT 91–95
--- NOTE | 2017-06-19 00:54 | RADRPT ---
EXAM DATE/TIME: 06/19/2017 00:22 [facility] COMPARISON: CT ABDOMEN & PELVIS W/O CONTRAST, June 12, 2017, 3:57. INDICATIONS : Abdomen pain. ORAL CONTRAST: Prescribed oral contrast ingested. RADIATION DOSE: 7.37 CTDIvol (mGy) MEDICAL HISTORY : Cardiovascular disease. Hypertension. Carcinoma, prostate. SURGICAL HISTORY : None. ENCOUNTER: Initial ACUITY: 1 day PAIN SCALE: 5/10 LOCATION: Bilateral abdomen TECHNIQUE: Volumetric scanning of the abdomen and pelvis was performed. Using automated exposure control and ad justment of the mA and/or kV according to patient size, radiation dose was kept as low as reasonably achievable to obtain optimal diagnostic quality images. DICOM format image data is available electro nically for review and comparison. FINDINGS: LOWER LUNGS: There is linear suspected scarring in the right middle lobe. There is minimal subpleural density seen at the posterior lateral left base. The visualized lower lungs are clear. There appears to be a alberto nary artery stent in the LAD. LIVER: Homogeneous density without lesion. There is no dilation of the biliary tree. No calcified gallston es. SPLEEN: Normal size without lesion. PANCREAS: Within normal limits. KIDNEYS: There are bilateral nephrostomy tubes in place. There is severe dilatation of the left collecting sys tem. There is mild dilatation of the right collecting system. There is perinephric standing and retro peritoneal stranding seen around the left kidney. ADRENAL GLANDS: Within normal limits. VASCULAR: There is no aortic aneurysm. There are scattered atherosclerotic calcifications. BOWEL/MESENTERY: The stomach, small bowel, and colon demonstrate no acute abnormality. There is no free intraperitone al air or fluid. ABDOMINAL WALL: Within normal limits. RETROPERITONEUM: There are mildly prominent lymph nodes seen in the retroperitoneum in the aortocaval and periaortic r egions measuring up to 1.6 cm. There is external iliac adenopathy being more prominent left measuring up to 2.9 cm. BLADDER: There is a Celaya catheter placed. The urinary bladder appears thickened. REPRODUCTIVE: Within normal limits. INGUINAL: There is right inguinal adenopathy. MUSCULOSKELETAL: There are sclerotic lesions seen throughout the visualized bony structures. There is pathologic fract ure at the medial right pubic bone and superior pubic rami on the right. CONCLUSION: 1. Widespread sclerotic bony metastases. 2. Retroperitoneal, lateral pelvic, and inguinal adenopathy. 3. Suspected diffuse bladder wall thickening. The bladder is decompressed by a Celaya catheter. 4. Bilateral nephrostomy tubes in place. There is persistent severe dilatation of the left renal nataly ecting system. There is mild dilatation of the right collecting system. Rogerio Phelan MD on June 19, 2017 at 0:45 Board Certified Radiologist. This report was verified electronically.
[2017-06-19] MEDS ORDERED: MORPHINE SULFATE 2 MG/ML INJ IV PUSH ONE ×2 (01:00→09:00)
[2017-06-19] MEDS: SODIUM CHLORIDE 0.9% FLUSH 10 ML FLUSH IV FLUSH PRN (01:38)
[2017-06-19] MEDS: SODIUM BICARBONATE 8.4% INJ 75 MEQ in SODIUM CHLOR 0.45% 1000 ML INJ 1,000 ML IV SCH ×3 (04:21→22:22)
[2017-06-19] MEDS: hydrALAZINE HCL 50 MG TAB PO SCH ×3 (05:09→22:00)
[2017-06-19] MEDS: INSULIN ASPART SUPPLEMENTAL SCALE SQ SCH ×4 (08:00→20:14)
[2017-06-19] MEDS: SUCRALFATE 1 GM/10 ML CUP PO SCH ×4 (08:53→21:00)
[2017-06-19] MEDS: ISOSORBIDE MONONITRATE 60 MG TAB PO SCH (08:53)
[2017-06-19] MEDS: PANTOPRAZOLE SOD 40 MG DELAYED RELEASE TAB PO SCH ×2 (08:54→20:14)
[2017-06-19] MEDS: CALCIUM/VITAMIN D 250 MG/125 U TAB PO SCH ×2 (08:54→20:15)
[2017-06-19] MEDS: CARVEDILOL 12.5 MG TAB PO SCH ×2 (08:54→20:14)
[2017-06-19] MEDS: SODIUM CHLORIDE 0.9% FLUSH 10 ML FLUSH IV FLUSH SCH ×2 (08:55→20:15)
[2017-06-19] MEDS: INSULIN DETEMIR 100 UNITS/ML VIAL SQ SCH ×2 (09:04→20:13)
--- NOTE | 2017-06-19 09:12 | PD.ONC.PN ---
Subjective Subjective Remarks Afebrile overnight. Patient resting in bed in nad. Wants to go home today. Abdominal pain persistent but improved. Still with large output from right nephrostomy tube, minimal output from left. Objective Data Date Time Temp Pulse Resp B/P (MAP) Pulse Ox O2 Delivery O2 Flow Rate FiO2 06/19/17 04:24 99.0 73 18 135/66 (89) 91 06/19/17 04:10 76 06/19/17 00:04 78 06/18/17 23:44 99.2 74 18 109/49 (69) 93 06/18/17 21:35 123/71 (88) 06/18/17 20:49 97 Room Air 06/18/17 20:44 99.1 81 18 148/81 (103) 95 06/18/17 20:12 83 06/18/17 17:30 98.4 84 16 130/70 (90) 94 06/18/17 12:56 98.2 77 20 144/75 (98) 93 06/18/17 09:19 Room Air 06/18/17 09:19 98.8 83 16 163/76 (105) 92 06/19/17 06/19/17 06/19/17 07:00 15:00 23:00 Intake Total 400 ml Output Total 3025 ml Balance -2625 ml Result Diagram: 06/18/17 0741 06/18/17 0741 Laboratory Results Laboratory Tests Test 06/18/17 16:13 Total Bilirubin 0.5 MG/DL Direct Bilirubin 0.2 MG/DL Indirect Bilirubin 0.3 MG/DL Aspartate Amino Transf (AST/SGOT) 14 U/L Alanine Aminotransferase (ALT/SGPT) 20 U/L Alkaline Phosphatase 88 U/L Total Protein 7.3 GM/DL Albumin 2.4 GM/DL Imaging Studies Last 24 hours Impressions Abdomen/Pelvis CT 06/19/17 0000 Signed Impressions: Service Date/Time: Monday, June 19, 2017 00:22 - CONCLUSION: 1. Widespread sclerotic bony metastases. 2. Retroperitoneal, lateral pelvic, and inguinal adenopathy. 3. Suspected diffuse bladder wall thickening. The bladder is decompressed by a Kumar catheter. 4. Bilateral nephrostomy tubes in place. There is persistent severe dilatation of the left renal collecting system. There is mild dilatation of the right collecting system. Rogerio Phelan MD Administered Medications Medications (Trade) Dose Ordered Sig/Jerzy Route PRN Reason Start Time Stop Time Status Last Admin Dose Admin Sodium Chloride (NS Flush) 2 ml UNSCH PRN IV FLUSH FLUSH AFTER USING IV ACCESS 06/12/17 05:00 06/19/17 01:38 Sodium Chloride (NS Flush) 2 ml BID IV FLUSH 06/12/17 09:00 06/18/17 20:53 Ondansetron HCl (Zofran Inj) 4 mg Q6H PRN IV PUSH NAUSEA OR VOMITING 06/12/17 05:00 06/18/17 13:00 Insulin Aspart (NovoLOG SUPPLEMENTAL SCALE) 1 ACHS SLIDING SCALE SQ 06/12/17 08:00 06/18/17 21:03 Carvedilol (Coreg) 25 mg BID PO 06/12/17 09:00 06/18/17 20:52 Tamsulosin HCl (Flomax) 0.4 mg HS PO 06/12/17 21:00 06/18/17 20:52 Clonidine (Catapres) 0.1 mg Q6H PRN PO SBP>180, DBP>100 06/12/17 06:00 06/17/17 17:50 Sucralfate (Carafate Liq) 1 gm ACHS PO 06/12/17 12:00 06/18/17 23:48 Alprazolam (Xanax) 0.5 mg Q8H PRN PO anxiety 06/12/17 12:00 06/18/17 21:44 Pantoprazole Sodium (Protonix) 40 mg BID PO 06/13/17 21:00 06/18/17 20:52 Sodium Bicarbonate 75 meq/Sodium Chloride 1,075 ml @ 100 mls/hr [id number] IV 06/15/17 07:00 06/19/17 04:21 Acetaminophen (Tylenol) 500 mg Q4H PRN PO musculoskeletal pain 06/16/17 09:45 06/18/17 21:44 Isosorbide Mononitrate (Imdur) 120 mg DAILY PO 06/17/17 09:00 06/18/17 09:21 Hydralazine HCl (Apresoline) 100 mg Q8HR PO 06/18/17 14:00 06/19/17 05:09 Insulin Detemir (Levemir Inj) 5 units Q12HR SQ 06/18/17 21:00 06/18/17 21:03 Calcium/Vitamin D (Oscal-D 250-125) 250 mg Q12HR PO 06/18/17 21:00 06/18/17 20:52 Objective Remarks GENERAL: Middle aged male lying in bed in nad. SKIN: Warm and dry. HEAD: Normocephalic. EYES: No injection or drainage. NECK: Supple, trachea midline. CARDIOVASCULAR: Regular rate and rhythm RESPIRATORY: Breath sounds equal bilaterally. No accessory muscle use. : bilateral nephrostomy tubes in place. kumar catheter in place. GASTROINTESTINAL: Abdomen soft, non-tender, nondistended. EXTREMITIES: No cyanosis MUSCULOSKELETAL: Adequate muscle tone. NEUROLOGICAL: awake and alert, normal speech. moving extremities. Assessment/Plan Problem List: (1) Prostate cancer metastatic to bone ICD Codes: C61 - Malignant neoplasm of prostate; C79.51 - Secondary malignant neoplasm of bone Status: Chronic Plan: --may be reasonable to give systemic therapy to palliate obstructive symptoms--Prostate cancer is generally responsive to androgen blockade therapy and addition of systemic therapy would be beneficial in this case. --Will consider giving 1st dose of Docetaxel 75mg /m2 while in-patient Treatment History: July 2016-- [place] score of 4 + 4 = 8. tumor involved the prostate bilaterally and extended into the periprosthetic adipose tissue. was initiated on hormone blockade therapy with Lupron injections. --Recently--> developed progressive disease with lymphadenopathy in his right groin. CT scans of the pelvis confirmed the retroperitoneal adenopathy in the left iliac chain. +prominent lymphadenopathy in the pelvic sidewalls. + diffuse bone mets. +incomplete fracture in the left acetabulum and inferior pubic rami and fractures in the right superior inferior pubic rami+bladder wall thickening with a 2.3-cm mass. --bone scan --> widespread osseous metastatic disease involving the thoracic and lumbar spine+ sacral ala bilaterally and right intertrochanteric region. Mets in the proximal humerus and ribs. (2) Severe anemia ICD Codes: D64.9 - Anemia, unspecified Plan: --appears to be secondary to his hematuria. --no evidence of hemolysis. --s/p EGD (3) Hydronephrosis ICD Codes: N13.30 - Unspecified hydronephrosis Status: Acute Plan: --s/p nephrostomy tube placement on 06/17 --Bilateral hydronephrosis with obstruction due to malignancy, bladder mass and gross hematuria. --attempted ureteral stent placement on 06/15 was unsuccessful due tumor burden. --s/p biopsy of bladder mass, awaiting pathology. (4) Acute kidney failure ICD Codes: N17.9 - Acute kidney failure, unspecified Status: Acute Plan: --improved 06/18 after nephrostomy tube placement on 06/17 --due to urinary obstruction and hydronephrosis. Assessment 57y/o male with a history of stage IV prostate cancer admitted with urinary obstruction, hematuria and severe anemia. 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 s/p right-sided orchiectomy. did not receive any adjuvant chemotherapy or radiation treatments. Diabetes type 2 History of coronary stents in 2006. Plan 1. monitor CBC 2. monitor renal function 3. will consider giving inpatient Docetaxel. Attending Statement The exam, history, and the medical decision-making described in the above note were completed with the assistance of the mid-level provider. I reviewed and agree with the findings presented. I attest that I had a [id number] encounter with the patient on the same day, and personally performed and documented my assessment and findings in the medical record Stage IV prostate Cancer had discussion with patient regarding giving systemic treatment to debulk his disease. He was easily distractible and had tangentiality did not answer my question regarding whether it would be okay for him to receive treatment He was clearly not confused and oriented to time, place and person D/W daughter who is POA and agrees to consent for treatment I think we need to obtain psych evaluation - thus a consult has been placed anemia is improving continue daily IV iron MIRYAM improving hematuria improving I will start Casodex will give Lupron in 1 week Docetaxel once psych evaluation has been completed and further discussions with his daughter d/w rn o/n events reviewed Problem Qualifiers (1) Acute kidney failure: Qualified Codes: N17.9 - Acute kidney failure, unspecified Agueda Armstrong Jun 19, 2017 09:11 Gonzalez Mosley MD Jun 20, 2017 00:01
[2017-06-19] MEDS: IRON SUCROSE INJ 200 MG in SODIUM CHLORIDE 0.9% INJ 100 ML IV SCH (09:22)
--- NOTE | 2017-06-19 13:27 | HHI.HCPN ---
Reason for visit a. To assist with evaluation and management of symptoms including: Restlessness, debility. b. To assist medical decision maker(s) with: better understanding of current medical conditions; weighing benefits/burdens of medical treatment options; making medical treatment decisions. . Subjective/Interval History Palliative care follow-up for further clarifications of goals of care. Patient seen in his room, resting in bed in no acute distress. Patient sleeping, sitter at bedside. Sitter reports that patient was restless a few moments ago, was medicated with morphine for pain. Patient briefly opening eyes to voice, went back to sleep. Abdomen/pelvis CT on 06/19/17 revealing widespread bony metastasis, retroperitoneal, bilateral pelvic and inguinal adenopathy, persistent severe dilatation of the left renal collecting system. Left nephrostomy tube with minimal output, right nephrostomy tube with large output. Interventional radiology has been consulted to evaluate and possibly change left nephrostomy tube. Patient remains afebrile, stable hemodynamically. BUN/ creatinine remains elevated, however improving since placement of nephrostomy tubes. Met with patient's daughter Agueda Cavanaugh from oncology present. Medical update provided. Reviewed patient's past medical history, clinical course and treatment options to include palliative chemotherapy. Pending psych consult to determine pt medical decision-making capacity. Family goals at this time is to improve patient's quality of life and to prolong his survival. Patient to remain full code. . Family/friend interactions See interval note. . Advance Directives Living Will: Completed, but not made available Health Care Surrogate: Completed, but not made available Advance Directive Specifics Health Care Surrogate(s): Advance directives reported as completed. Patient's ex- Erna Bravo presented herself as healthcare surrogate decision maker. Pending copy of advance directives. In the absence of AD and as per [place] statute, healthcare proxy decision-making would fall to patient's 2 daughters Afshan and Alondra. . Significant change in goals: Family supporting aggressive management at this time. . Objective Vital Signs Date Time Temp Pulse Resp B/P (MAP) Pulse Ox O2 Delivery O2 Flow Rate FiO2 06/19/17 09:00 95 21 06/19/17 04:24 99.0 73 18 135/66 (89) 91 06/19/17 04:10 76 06/19/17 00:04 78 06/18/17 23:44 99.2 74 18 109/49 (69) 93 06/18/17 21:35 123/71 (88) 06/18/17 20:49 97 Room Air 06/18/17 20:44 99.1 81 18 148/81 (103) 95 06/18/17 20:12 83 06/18/17 17:30 98.4 84 16 130/70 (90) 94 Intake & Output 06/19/17 06/19/17 07:00 19:00 Intake Total 400 ml 122 ml Output Total 4400 ml Balance -4000 ml 122 ml Intake Oral 400 ml IV Total 122 ml Output Urine Total 500 ml Drainage Total 3900 ml Physical Exam CONSTITUTIONAL/GENERAL: This is an adequately nourished patient, in no apparent distress. TUBES/LINES/DRAINS: PIV, bilateral nephrostomy tubes, Celaya catheter. SKIN: No jaundice, rashes, or lesions. Ecchymoses on upper extremities. No wounds seen anteriorly. Skin temperature appropriate. Not diaphoretic. HEAD: Atraumatic. Normocephalic. EYES: Pupils equal and round and reactive. Extraocular motions intact. No scleral icterus. No injection or drainage. Fundi not examined. ENT: Hearing grossly normal. Nose without bleeding or purulent drainage. Moist oral mucosa. NECK: Trachea midline. Supple, nontender. CARDIOVASCULAR: Regular rate and rhythm without murmurs, gallops, or rubs. No JVD. Peripheral pulses symmetric. RESPIRATORY/CHEST: Symmetric, unlabored respirations. Clear to auscultation. Breath sounds equal bilaterally. GASTROINTESTINAL: Abdomen soft, non-tender, nondistended. No guarding. Bowel sounds present. GENITOURINARY: Without palpable bladder distension. Celaya catheter in place with small amount of hematuria. Bilateral nephrostomy tubes in place. MUSCULOSKELETAL: Extremities without clubbing, cyanosis. Bilateral lower extremity edema. No mottling or clubbing. NEUROLOGICAL: Limited neurological evaluation, patient sleeping during my assessment. Briefly opening eyes to verbal stimuli. PSYCHIATRIC: Appears calm. . Diagnostic Tests Laboratory Laboratory Tests Test 06/17/17 06:51 06/18/17 07:41 06/18/17 16:13 White Blood Count 8.4 TH/MM3 (4.0-11.0) 8.6 TH/MM3 (4.0-11.0) Red Blood Count 3.81 MIL/MM3 (4.50-5.90) 4.05 MIL/MM3 (4.50-5.90) Hemoglobin 9.8 GM/DL (13.0-17.0) 10.5 GM/DL (13.0-17.0) Hematocrit 30.7 % (39.0-51.0) 31.9 % (39.0-51.0) Mean Corpuscular Volume 80.5 FL (80.0-100.0) 78.8 FL (80.0-100.0) Mean Corpuscular Hemoglobin 25.7 PG (27.0-34.0) 25.9 PG (27.0-34.0) Mean Corpuscular Hemoglobin Concent 31.9 % (32.0-36.0) 32.8 % (32.0-36.0) Red Cell Distribution Width 24.1 % (11.6-17.2) 24.1 % (11.6-17.2) Platelet Count 194 TH/MM3 (150-450) 197 TH/MM3 (150-450) Mean Platelet Volume 7.3 FL (7.0-11.0) 7.0 FL (7.0-11.0) Neutrophils (%) (Auto) 80.5 % (16.0-70.0) 78.6 % (16.0-70.0) Lymphocytes (%) (Auto) 6.8 % (9.0-44.0) 6.5 % (9.0-44.0) Monocytes (%) (Auto) 9.0 % (0.0-8.0) 12.1 % (0.0-8.0) Eosinophils (%) (Auto) 3.2 % (0.0-4.0) 2.5 % (0.0-4.0) Basophils (%) (Auto) 0.5 % (0.0-2.0) 0.3 % (0.0-2.0) Neutrophils # (Auto) 6.8 TH/MM3 (1.8-7.7) 6.8 TH/MM3 (1.8-7.7) Lymphocytes # (Auto) 0.6 TH/MM3 (1.0-4.8) 0.6 TH/MM3 (1.0-4.8) Monocytes # (Auto) 0.8 TH/MM3 (0-0.9) 1.0 TH/MM3 (0-0.9) Eosinophils # (Auto) 0.3 TH/MM3 (0-0.4) 0.2 TH/MM3 (0-0.4) Basophils # (Auto) 0.0 TH/MM3 (0-0.2) 0.0 TH/MM3 (0-0.2) CBC Comment AUTO DIFF DIFF FINAL Differential Comment AUTO DIFF CONFIRMED Platelet Estimate NORMAL (NORMAL) Platelet Morphology Comment NORMAL (NORMAL) Ovalocytes 1+ (NORMAL) Sami Cells 1+ (NORMAL) Acanthocytes OCC (NORMAL) Keratocytes OCC (NORMAL) Blood Urea Nitrogen 83 MG/DL (7-18) 63 MG/DL (7-18) Creatinine 5.28 MG/DL (0.60-1.30) 3.92 MG/DL (0.60-1.30) Random Glucose 188 MG/DL (74-106) 200 MG/DL (74-106) Total Protein 6.9 GM/DL (6.4-8.2) 7.0 GM/DL (6.4-8.2) 7.3 GM/DL (6.4-8.2) Calcium Level 7.3 MG/DL (8.5-10.1) 7.1 MG/DL (8.5-10.1) Sodium Level 142 MEQ/L (136-145) 145 MEQ/L (136-145) Potassium Level 4.7 MEQ/L (3.5-5.1) 3.5 MEQ/L (3.5-5.1) Chloride Level 116 MEQ/L (98-107) 115 MEQ/L (98-107) Carbon Dioxide Level 12.8 MEQ/L (21.0-32.0) 19.5 MEQ/L (21.0-32.0) Anion Gap 13 MEQ/L (5-15) 11 MEQ/L (5-15) Estimat Glomerular Filtration Rate 11 ML/MIN (>89) 16 ML/MIN (>89) Protein Corrected Calcium 7.4 MG/DL (8.5-10.1) 7.2 MG/DL (8.5-10.1) Phosphorus Level 3.6 MG/DL (2.5-4.9) Total Bilirubin 0.5 MG/DL (0.2-1.0) Direct Bilirubin 0.2 MG/DL (0.0-0.2) Indirect Bilirubin 0.3 MG/DL (0.0-0.8) Aspartate Amino Transf (AST/SGOT) 14 U/L (15-37) Alanine Aminotransferase (ALT/SGPT) 20 U/L (12-78) Alkaline Phosphatase 88 U/L (45-117) Albumin 2.4 GM/DL (3.4-5.0) Result Diagram: 06/18/17 0741 06/18/17 0741 Imaging Last 24 hours Impressions Abdomen/Pelvis CT 06/19/17 0000 Signed Impressions: Service Date/Time: Monday, June 19, 2017 00:22 - CONCLUSION: 1. Widespread sclerotic bony metastases. 2. Retroperitoneal, lateral pelvic, and inguinal adenopathy. 3. Suspected diffuse bladder wall thickening. The bladder is decompressed by a Celaya catheter. 4. Bilateral nephrostomy tubes in place. There is persistent severe dilatation of the left renal collecting system. There is mild dilatation of the right collecting system. Rogerio Phelan MD Procedures * 06/15/17 -cystoscopy and palliative partial transurethral resection of bladder mass * 06/15/17 -bilateral nephrostomy tubes . Assessment and Plan Disease Oriented Problem List: (1) Acute metabolic encephalopathy (2) Chronic systolic CHF (congestive heart failure) (3) Prostate cancer metastatic to multiple sites (4) CAD (coronary artery disease), [place] coronary artery (5) Anemia due to acute blood loss (6) Hypertension Symptom Scale: (1) Agitation 0-10 Scale: 0 Comment: Metabolic encephalopathy (2) Debility 0-10 Scale: Unable to quantify Comment: Progressive, secondary to burden of disease. Pertinent Non-Medical Issues Psychosocial: Patient originally from [place], [place]. Moved to [place] in 1997. 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 No service. Patient is , previously for 17 years. Has 2 daughters, Afshan and Alondra who are twins. Spiritual: Irish rastafarian. Legal: Advance directives reported as completed. Pending copy. Ethical issues impacting care: Patient unable to participate in medical decision -making secondary to confusion. . Important Contacts Patient's daughter Afshan Shelly Patient's daughter Alondra Shelly Patient's ex- Erna Bravo . Prognosis Mr. Bravo is a 57-year-old male with a medical history significant for stage IV prostate cancer, insulin-dependent diabetes mellitus type 2, hypertension, CAD and CHF. Patient presented to ED on 06/12/17 with complaints of generalized weakness, epigastric pain, urinary retention and GI bleed. Clinical course complicated by bilateral obstructive uropathy and hydronephrosis s/p cystoscopy and palliative partial transurethral resection of bladder mass and bilateral nephrostomy tube placement. Patient's overall prognosis is poor given stage IV prostate cancer with metastasis to bone and bladder, multiple comorbidities and profound physical deconditioning. Patient unlikely to be a candidate for outpatient palliative systemic therapy given poor performance status. Patient appears hospice appropriate should patient/ family elects comfort-directed care. . Code Status: Full Code Plan * CODE STATUS: Full code at this time. * HEALTHCARE DECISION-MAKING: Pending psych consult to determine pt medical decision-making capacity. Advance directives reported as completed. Patient's ex- Erna Bravo presented herself as healthcare surrogate decision maker. Pending copy of advance directives. In the absence of AD and as per [place] statute, healthcare proxy decision-making would fall to patient's 2 daughters Afshan and Alondra. Palliative care recommends shared decision-making with patient's ex- Erna and 2 daughters Afshan and Alondra until advance directives are secured and verified. * GOALS OF CARE: Family electing to maximize current medical management; their goal of therapy is to improve patient's quality of life and prolong his survival. Family considering palliative chemotherapy. * Reviewed with family the future role of hospice should/when patient's symptoms burden increases or in the setting of additional decline. * SYMPTOMS: = Restlessness/agitation. Unclear etiology -metabolic vs brain metastasis. Most recent brain CT 02/17/17 negative for acute process. Patient currently on Xanax 0.5 q8hr when necessary for anxiety. Received 2 doses yesterday, and 1 today. Sitter at bedside for safety. No additional recommendations. = Debility, secondary to progression of illness. Family looking into custodial facility for physical straightening. Pending PT consultation for recommendations. = Pain, secondary to burden of disease. Patient has received 2 doses of morphine 2 mg IV today. Palliative care recommends using hydromorphone 0.5mg to 1mg IV given risk of morphine induced neurotoxicity in the setting of acute/chronic kidney injury. * Case discussed with oncology, DAIVD Amaya. * Palliative care contact information has been provided to patient's family. * Palliative care will continue to follow-up for further clarifications of goals of care as patient's clinical course continues to evolve. . Time Spent Total Floor Time (mins): 41 (Total time to include review medical records, physical exam, goals of care conversation with patient's daughter, case discussion with oncology.) >50% Counseling/Coord of Care: Yes Attestation To help prompt me to consider important information that might be impacting today's encounter and assessment, information from prior notes written by myself or my colleagues may have been "brought forward" into today's note. My signature on this note, however, is an attestation that I personally performed the exam, history, and/or decision-making noted today, and, unless otherwise indicated, the interactions with patient, family, and staff as well as the review of records all occurred today. I also attest that the listed assessment and stated plan reflect my best clinical judgment today based on the combination of historical information, prior notes, and today's exam/ interactions. When time spent is documented, it refers only to time spent today by the signer, or if indicated, combined time spent today by collaborating physician/nurse practitioner. Jacquelin Marie Jun 19, 2017 13:27
[2017-06-19 14:02] LABS: AUTOMATED NEUTROPHIL # 5.4 TH/MM3 (1.8-7.7); BASOPHIL % 0.4 % (0.0-2.0); EOSINOPHIL # 0.1 TH/MM3 (0-0.4); EOSINOPHIL % 1.6 % (0.0-4.0); HEMATOCRIT 31.6 % (39.0-51.0); LYMPH % 10.6 % (9.0-44.0); LYMPHOCYTE # 0.8 TH/MM3 (1.0-4.8); MEAN CELL VOLUME 80.2 FL (80.0-100.0); MEAN CORPUSCULAR HEMOGLOBIN 25.9 PG (27.0-34.0); MEAN CORPUSCULAR HGB CONC 32.3 % (32.0-36.0); MONO % 11.9 % (0.0-8.0); NEUT % 75.5 % (16.0-70.0); PLATELET COUNT 206 TH/MM3 (150-450); RED BLOOD COUNT 3.94 MIL/MM3 (4.50-5.90); RED CELL DISTRIBUTION WIDTH 24.1 % (11.6-17.2); WHITE BLOOD COUNT 7.2 TH/MM3 (4.0-11.0)
[2017-06-19 14:06] LABS: POTASSIUM 3.4 MEQ/L (3.5-5.1)
[2017-06-19 14:07] LABS: HEMO FLAGS AUTO DIFF
[2017-06-19 14:22] LABS: CALCIUM-PROTEIN CORRECTED 7.3 MG/DL (8.5-10.1)
[2017-06-19] MEDS ORDERED: MIDAZOLAM HCL 2 MG/2 ML VIAL ONE (14:30)
[2017-06-19 14:36] LABS: OVALOCYTES 1+ (NORMAL)
[2017-06-19 14:37] LABS: PLATELET ESTIMATE SMEAR NORMAL (NORMAL); PLATELET MORPHOLOGY NORMAL (NORMAL); SCAN/DIFF AUTO DIFF CONFIRMED
--- NOTE | 2017-06-19 14:51 | HHI.PR ---
Subjective Remarks Patient has been afebrile overnight. Denies cp/sob. Abdominal pain persistent but improving. Objective Vitals Vital Signs Date Time Temp Pulse Resp B/P (MAP) Pulse Ox O2 Delivery O2 Flow Rate FiO2 06/19/17 09:00 95 21 06/19/17 04:24 99.0 73 18 135/66 (89) 91 06/19/17 04:10 76 06/19/17 00:04 78 06/18/17 23:44 99.2 74 18 109/49 (69) 93 06/18/17 21:35 123/71 (88) 06/18/17 20:49 97 Room Air 06/18/17 20:44 99.1 81 18 148/81 (103) 95 06/18/17 20:12 83 06/18/17 17:30 98.4 84 16 130/70 (90) 94 I/O 06/18/17 06/18/17 06/18/17 06/19/17 06/19/17 06/19/17 07:00 15:00 23:00 07:00 15:00 23:00 Intake Total 1780 ml 1101 ml 400 ml 122 ml Output Total 4355 ml 650 ml 4675 ml 3025 ml 250 ml Balance -2575 ml -650 ml -3574 ml -2625 ml -128 ml Intake Oral 780 ml 400 ml IV Total 1000 ml 1101 ml 122 ml Output Urine Total 500 ml Drainage Total 4355 ml 650 ml 4675 ml 2525 ml 250 ml Result Diagram: 06/19/17 1259 06/19/17 1259 Imaging Last Impressions Abdomen/Pelvis CT 06/19/17 0000 Signed Impressions: Service Date/Time: Monday, June 19, 2017 00:22 - CONCLUSION: 1. Widespread sclerotic bony metastases. 2. Retroperitoneal, lateral pelvic, and inguinal adenopathy. 3. Suspected diffuse bladder wall thickening. The bladder is decompressed by a Celaya catheter. 4. Bilateral nephrostomy tubes in place. There is persistent severe dilatation of the left renal collecting system. There is mild dilatation of the right collecting system. Rogerio Phelan MD Chest X-Ray 06/17/17 0000 Signed Impressions: Service Date/Time: Saturday, June 17, 2017 14:11 - CONCLUSION: Some pulmonary vascular congestion with a tortuous aorta. No focal infiltrate. Doc Cotter MD Nephrostomy 06/15/17 0000 Signed Impressions: Service Date/Time: Thursday, June 15, 2017 16:45 - CONCLUSION: Uncomplicated nephrostomy tube placement as above. Alessandro Pope MD Objective Remarks GENERAL: Well-nourished, well-developed patient. SKIN: Warm and dry. HEAD: Normocephalic. EYES: No scleral icterus. No injection or drainage. NECK: Supple, trachea midline. No JVD or lymphadenopathy. CARDIOVASCULAR: Regular rate and rhythm without murmurs, gallops, or rubs. RESPIRATORY: Breath sounds equal bilaterally. No accessory muscle use. GASTROINTESTINAL: Bowel sounds present. Abdomen soft, non-tender, distended. EXTREMITIES: trace pedal edema. NEUROLOGICAL: Awake alert oriented to month, year. mildly confused. Medications and IVs Current Medications Medications (Trade) Dose Ordered Sig/Jerzy Route Start Time Stop Time Status Last Admin (NS Flush) 2 ml UNSCH PRN IV FLUSH 06/12/17 05:00 06/19/17 01:38 (NS Flush) 2 ml BID IV FLUSH 06/12/17 09:00 06/18/17 20:53 (Zofran Inj) 4 mg Q6H PRN IV PUSH 06/12/17 05:00 06/18/17 13:00 (D50w (Vial) Inj) 50 ml UNSCH PRN IV PUSH 06/12/17 05:30 (Glucagon Inj) 1 mg UNSCH PRN OTHER 06/12/17 05:30 (NovoLOG SUPPLEMENTAL SCALE) 1 ACHS SLIDING SCALE SQ 06/12/17 08:00 06/18/17 21:03 (Coreg) 25 mg BID PO 06/12/17 09:00 06/19/17 08:54 (Flomax) 0.4 mg HS PO 06/12/17 21:00 06/18/17 20:52 (Duoneb Neb) 1 ampule Q4HR NEB PRN NEB 06/12/17 05:45 (Catapres) 0.1 mg Q6H PRN PO 06/12/17 06:00 06/17/17 17:50 (Carafate Liq) 1 gm ACHS PO 06/12/17 12:00 06/19/17 08:53 (Xanax) 0.5 mg Q8H PRN PO 06/12/17 12:00 06/18/17 21:44 (Protonix) 40 mg BID PO 06/13/17 21:00 06/19/17 08:54 Sodium Bicarbonate 75 meq/Sodium Chloride 1,075 ml @ 100 mls/hr [id number] IV 06/15/17 07:00 06/19/17 04:21 (Tylenol) 500 mg Q4H PRN PO 06/16/17 09:45 06/18/17 21:44 (Imdur) 120 mg DAILY PO 06/17/17 09:00 06/19/17 08:53 (Pill Splitter) 1 ea UNSCH PRN OTHER 06/17/17 12:00 (Apresoline) 100 mg Q8HR PO 06/18/17 14:00 06/19/17 05:09 (Levemir Inj) 5 units Q12HR SQ 06/18/17 21:00 06/19/17 09:04 (Oscal-D 250-125) 250 mg Q12HR PO 06/18/17 21:00 06/19/17 08:54 Iron Sucrose 200 mg/Sodium Chloride 110 ml @ 110 mls/hr DAILY IV 06/19/17 09:00 06/21/17 09:59 06/19/17 09:22 A/P Problem List: (1) GI bleed ICD Code: K92.2 - Gastrointestinal hemorrhage, unspecified Status: Acute (2) Acute on chronic renal failure ICD Code: N17.9 - Acute kidney failure, unspecified; N18.9 - Chronic kidney disease, unspecified Status: Acute (3) Diabetes mellitus, type 2 ICD Code: E11.9 - Diabetes mellitus, type 2 Status: Chronic (4) Hydronephrosis ICD Code: N13.30 - Unspecified hydronephrosis Status: Acute (5) Anemia due to acute blood loss ICD Code: D62 - Acute posthemorrhagic anemia Status: Acute (6) Hematuria ICD Code: R31.9 - Hematuria, unspecified Status: Acute (7) Fall ICD Code: W19.XXXA - Unspecified fall, initial encounter Status: Acute (8) Prostate cancer metastatic to bone ICD Code: C61 - Malignant neoplasm of prostate; C79.51 - Secondary malignant neoplasm of bone Status: Chronic (9) Chronic systolic CHF (congestive heart failure) ICD Code: I50.22 - Chronic systolic (congestive) heart failure Status: Chronic (10) CAD (coronary artery disease), [place] coronary artery ICD Code: I25.10 - Atherosclerotic heart disease of [place] coronary artery without angina pectoris Status: Chronic (11) Acute metabolic encephalopathy ICD Code: G93.41 - Metabolic encephalopathy Status: Acute (12) Prostate cancer metastatic to multiple sites ICD Code: C61 - Malignant neoplasm of prostate Status: Chronic (13) Ischemic cardiomyopathy ICD Code: I25.5 - Ischemic cardiomyopathy Status: Chronic (14) Duodenal ulcer ICD Code: K26.9 - Duodenal ulcer, unspecified as acute or chronic, without hemorrhage or perforation (15) Hypocalcemia ICD Code: E83.51 - Hypocalcemia Status: Acute (16) ATN (acute tubular necrosis) ICD Code: N17.0 - Acute kidney failure with tubular necrosis Status: Acute Assessment and Plan 1. Severe anemia d/t hematuria, gi bleed s/p EGD 06/13/17 showing duodenal ulcer and gastritis s/p Transfusion total 4 units PRBCs H&H remains stable Continue Protonix GI consulted - input appreciated. Monitor H&H, transfuse when necessary hemoglobin less than 7 or active bleeding 2. Acute renal failure, obstructive due to bladder mass, likely ATN - improving today creatinine 3, potassium normal - Diuresed over 13,000 mL over past 24 hours Status post cystoscopy 06/15 with partial resection of bladder mass presumably metastatic from known prostate cancer, ureteral stents were unable to be placed Status post emergent bilateral nephrostomy tubes 06/15 with interventional radiology Nephrology and urology consulted, appreciate recommendations Hold all nephrotoxic drugs Monitor renal function and urine output IVF per nephrology - NS with 75 meq NaHCO3 at 100 ml/hr - monitor for fluid overload 06/19 Creatinine trending down but still elevated at 3.11. Continue IV fluids as per nephrology. 3. Pneumonia CXR 06/12 showed bilateral lower lobe infiltrates with consolidation on the left repeat cxr today Zithromax Dc'd Continue IV Rocephin - Day 8 4. Metastatic prostate cancer Patient with known prostate ca and accompanying metastatic disease to bone, bladder, lost to follow up 06/19 Appreciate input from oncology -consideration to systemic chemotherapy while inpatient to help palliate obstructive symptoms. Repeat CT of the abdomen and pelvis shows widespread sclerotic bony metastases and persistent severe dilatation of the left renal collecting system. Patient is sp 5. Known chronic systolic CHF, ischemic cardiomyopathy with EF 15% in 2007, s/p stent to LAD at that time by Dr. Scott 2-D echo 06/16 with LVEF of 30-35%, mildly dilated left ventricle, mild tricuspid and mitral valve regurgitation Cardiology following EKG with possible lateral ischemic changes On isosorbide mononitrate, coreg no asa due to bleeding no acei due to ARF 6. Hypertension monitor BP trends and adjust medications as needed BP stable Continue current BP meds - on hydralazine 100 mg by mouth every 8 hours. Labetalol 25 minutes by mouth twice a day. 7. CAD/Elevated troponin s/p LAD stent in 2007 Troponin 0.07, suspect secondary to renal failure Acs ruled out Cardiology consulted, patient seen by Dr Bradshaw - conservative care 8. Acute metabolic/uremic encephalopathy - improving Reorient sitter DCed opioids, tylenol for pain 9. T2DM Continue with sliding scale insulin and Accu-Cheks. Blood glucose in the 100 -200 trend. 06/19 Blood sugars more stable. Continue insulin Levemir 5 units SQ Q12 hrs. 10. Hypocalcemia and hyperphosphatemia Started on calcium acetate per nephrology/Dr. Allen monitor BMP 06/19 Calcium still low, will order Calcium chloride IV DVT prophylaxis: Chemical anti-prophylactic contraindicated secondary to GI bleed as well as hematuria.. Bilateral SCDs Problem Qualifiers (1) GI bleed: Qualified Codes: K92.2 - Gastrointestinal hemorrhage, unspecified Berhane Cain MD Jun 19, 2017 14:51
--- NOTE | 2017-06-19 15:13 | PD.RAD ---
Post Procedure Progress Note Pre Procedure Diagnosis: (1) Hydronephrosis Post Procedure Diagnosis: (1) Hydronephrosis Procedure Date: Jun 19, 2017 Supervising Radiologist: Werner Lawrence JR Proceduralist/Assist: Andrew Griggs RT(R), Edyta Vazquez RT(R) Anesthesia: Conscious Sedation Plan of Activity Patient to Unit: [facility] Patient Condition: Good Additional Comments: Evaluation of left nephrostomy tube due to lack of drainage. Fluoroscopic evaluation shows occlusion of the tube secondary to a tight kink in the tube. Exchange for a new tube with resolution of the obstruction. Clear urine noted. Tube sutured in place. See PACS Report for procedural detail/treatment Jr. Howard,Werner Ramos MD Jun 19, 2017 15:13
[2017-06-19] MEDS ORDERED: IOHEXOL 350 MG/ML 50 ML BTL (for RAD DIAG) OTHER ONE (15:25)
[2017-06-19] MEDS ORDERED: CALCIUM CHLORIDE INJ 2 GM in SODIUM CHLORIDE 0.9% INJ 100 ML IV ONE (15:30)
--- NOTE | 2017-06-19 16:00 | RADRPT ---
EXAM DATE/TIME: 06/19/2017 14:25 [place] COMPARISON: No previous studies available for comparison. INDICATIONS : Patient with a history of hydronephrosis, needs malfunctioning nephrostomy tube evaluated and replace d. MEDICAL HISTORY : Type II Diabetes HTN Testicle cancer CAD Osteomyelitis, left foot SURGICAL HISTORY : Left foot surgery Cardiac cath ENCOUNTER: Subsequent ACUITY: 1 day PAIN SCORE: 0/10 LOCATION: N/A FLUORO TIME: 0.8 minutes IMAGE SERIES: 2 SEDATION TIME: 30 minutes CONTRAST: 10 cc Omnipaque (iohexol) 350 MEDICATION(S): 1.) 1.5 mg midazolam (Versed) IV 2.) 100 mcg fentanyl (Sublimaze) IV DEVICE(S): 1.) 10 Mong[place] nephrostomy catheter PROCEDURE : 1. Antegrade pyelogram. 2. Nephrostomy tube exchange. 3. Conscious sedation with continuous EKG and oximetry monitoring. The risks, benefits and alternatives to the procedure were explained and verbal and written consent w as obtained. The site was prepped in sterile fashion. Full sterile technique was used, including ca p, mask, sterile gloves and gown and a large sterile sheet. Hand hygiene and 2% chlorhexidine and/or betadine/alcohol prep was utilized per protocol for cutaneous antisepsis. The skin and subcutaneous tissues were infiltrated with local anesthetic solution. With fluoroscopic guidance antegrade pyelo gram was performed. Fluoroscopic evaluation of the existing nephrostomy tube shows a tight change involving the catheter within its external portion. Injection of contrast confirms the obstruction of the tube. The existing tube was ligated and removed over wire. Over a guidewire the prescribed nephrostomy tube was placed. Injection of positive contrast demonstra jaylin good position of the catheter within the collecting system. This was sutured in place using 2-0 s ilk suture. Conscious sedation was performed with the prescribed dosages and duration as above in the presence of an independent trained radiology nurse to assist in the monitoring of the patient. EKG and oximetry remained stable throughout the procedure. The patient tolerated the procedure well and there were n o complications. The patient was sent to post anesthesia recovery in stable condition. CONCLUSION: Uncomplicated nephrostomy tube exchange as above. Werner Lawrence Jr., MD on June 19, 2017 at 15:57 Board Certified Radiologist. This report was verified electronically.
--- NOTE | 2017-06-19 16:17 | HHI.NPPN ---
Subjective History of Present Illness 7-year-old male with past medical history of adenocarcinoma of the prostate with metastasis, hypertension, diabetes mellitus, ischemic heart disease, chronic kidney disease who was admitted with complaint of nausea, vomiting and abdominal pain. I was called to see the patient because of very high BUN and creatinine. The patient has a history of chronic kidney disease. His creatinine has been around 1.8 to 1.6. Additional Remarks Patient is more alert, remain confused off and on, not in distress. Review of Systems General General Remarks Unable to give much review of system. Objective Data Data 06/19/17 06/20/17 19:00 07:00 Intake Total 122 ml Output Total 250 ml Balance -128 ml IV Total 122 ml Drainage Total 250 ml Vital Signs Date Time Temp Pulse Resp B/P (MAP) Pulse Ox O2 Delivery O2 Flow Rate FiO2 06/19/17 09:00 95 21 06/19/17 04:24 99.0 73 18 135/66 (89) 91 06/19/17 04:10 76 06/19/17 00:04 78 06/18/17 23:44 99.2 74 18 109/49 (69) 93 06/18/17 21:35 123/71 (88) 06/18/17 20:49 97 Room Air 06/18/17 20:44 99.1 81 18 148/81 (103) 95 06/18/17 20:12 83 06/18/17 17:30 98.4 84 16 130/70 (90) 94 -: 06/19/17 1259 06/19/17 1259 Physical Exam General Appearance: No Acute Distress, Comfortable Eyes Eye Exam: Pupils Equal Neck Neck Exam: Neck Supple, Trachea Midline Pulmonary Resp Exam: Breath Sounds Equal, No Distress, Rhonchi Cardiology CV Exam: Regular, Normal Sinus Rhythm Gastrointestinal/Abdomen GI Exam: Soft, Non-Tender, Bowel Sounds Present Extremeties Extremities Exam: Trace Edema Neurologic Neuro Exam: Alert, Awake Assessment/Plan Assessment Summary: MIRYAM/Acute Renal Failure, Hypertension Electrolyte Assessment: Metabolic Acidosis Problem List: (1) Benign essential hypertension Status: Chronic (2) CAD (coronary artery disease) ICD Codes: I25.10 - Atherosclerotic heart disease of [place] coronary artery without angina pectoris Status: Chronic (3) History of CHF (congestive heart failure) ICD Codes: Z86.79 - Personal history of other diseases of the circulatory system Status: Chronic (4) Diabetes mellitus, type 2 ICD Codes: E11.9 - Diabetes mellitus, type 2 Status: Chronic (5) Prostate CA ICD Codes: C61 - Malignant neoplasm of prostate (6) Hematuria ICD Codes: R31.9 - Hematuria, unspecified Status: Acute (7) Acute on chronic renal failure ICD Codes: N17.9 - Acute kidney failure, unspecified; N18.9 - Chronic kidney disease, unspecified Status: Acute Plan Patient has chronic kidney disease and develop MIRYAM. Most likely due to obstructive uropathy. Had Cystoscopy done. Has bladder tumor removed. Unable to get stent in the ureter. Had bilateral Nephrostomy done on 06/15. BUN and Creatinine continue to improve. K is now normal. Po4 is now normalized. Calcium is low, on Oscal and got IV Calcium , add Rocaltrol. Problem Qualifiers (1) CAD (coronary artery disease): Qualified Codes: I25.10 - Atherosclerotic heart disease of [place] coronary artery without angina pectoris Raquel Allen MD Jun 19, 2017 16:17
[2017-06-19] MEDS: ALPRAZolam 0.5 MG TAB PO PRN (18:13)
[2017-06-19] MEDS: ACETAMINOPHEN 500 MG CPLT PO PRN ×2 (18:15→22:37)
[2017-06-19] MEDS: CALCITRIOL 0.25 MCG CAP PO SCH (20:14)
[2017-06-19] MEDS: TAMSULOSIN HCL 0.4 MG CAP PO SCH (20:15)
[2017-06-20] VITALS (11 sets, daily range): BP systolic 106–177; BP diastolic 56–94; PULSE 70–90; RESP 18–20; TEMP 98–99.2; O2SAT 95–98
[2017-06-20] MEDS: ALPRAZolam 0.5 MG TAB PO PRN ×3 (04:17→20:26)
[2017-06-20] MEDS: ACETAMINOPHEN 500 MG CPLT PO PRN ×3 (04:22→20:35)
[2017-06-20] MEDS: hydrALAZINE HCL 50 MG TAB PO SCH ×3 (06:58→20:26)
[2017-06-20 08:22] LABS: AUTOMATED NEUTROPHIL # 5.5 TH/MM3 (1.8-7.7); BASOPHIL % 0.3 % (0.0-2.0); EOSINOPHIL # 0.3 TH/MM3 (0-0.4); EOSINOPHIL % 3.9 % (0.0-4.0); HEMATOCRIT 32.1 % (39.0-51.0); HEMO FLAGS DIFF FINAL; LYMPH % 12.3 % (9.0-44.0); LYMPHOCYTE # 0.9 TH/MM3 (1.0-4.8); MEAN CELL VOLUME 79.9 FL (80.0-100.0); MEAN CORPUSCULAR HEMOGLOBIN 25.6 PG (27.0-34.0); MONO % 11.7 % (0.0-8.0); NEUT % 71.8 % (16.0-70.0); PLATELET COUNT 199 TH/MM3 (150-450); RED BLOOD COUNT 4.02 MIL/MM3 (4.50-5.90); RED CELL DISTRIBUTION WIDTH 23.8 % (11.6-17.2); WHITE BLOOD COUNT 7.7 TH/MM3 (4.0-11.0)
[2017-06-20 08:50] LABS: BICARBONATE 25.3 MEQ/L (21.0-32.0); MAGNESIUM 1.1 MG/DL (1.5-2.5); POTASSIUM 3.3 MEQ/L (3.5-5.1); TOTAL BILIRUBIN ADULT 0.5 MG/DL (0.2-1.0)
[2017-06-20 08:56] LABS: CALCIUM-PROTEIN CORRECTED 7.1 MG/DL (8.5-10.1)
[2017-06-20] MEDS: IRON SUCROSE INJ 200 MG in SODIUM CHLORIDE 0.9% INJ 100 ML IV SCH (09:00)
[2017-06-20] MEDS: SUCRALFATE 1 GM/10 ML CUP PO SCH ×4 (09:16→20:24)
[2017-06-20] MEDS: PANTOPRAZOLE SOD 40 MG DELAYED RELEASE TAB PO SCH ×2 (09:16→20:26)
[2017-06-20] MEDS: ISOSORBIDE MONONITRATE 60 MG TAB PO SCH (09:17)
[2017-06-20] MEDS: CALCITRIOL 0.25 MCG CAP PO SCH (09:17)
[2017-06-20] MEDS: CARVEDILOL 12.5 MG TAB PO SCH ×2 (09:17→20:26)
[2017-06-20] MEDS: SODIUM CHLORIDE 0.9% FLUSH 10 ML FLUSH IV FLUSH SCH ×2 (09:17→20:27)
[2017-06-20] MEDS: INSULIN DETEMIR 100 UNITS/ML VIAL SQ SCH ×2 (09:17→20:25)
[2017-06-20] MEDS: BICALUTAMIDE 50 MG TAB PO SCH (09:17)
[2017-06-20] MEDS: CALCIUM/VITAMIN D 250 MG/125 U TAB PO SCH ×2 (09:17→20:26)
[2017-06-20] MEDS: INSULIN ASPART SUPPLEMENTAL SCALE SQ SCH ×4 (09:22→20:25)
--- NOTE | 2017-06-20 09:41 | PD.ONC.PN ---
Subjective Subjective Remarks Afebrile Pt apparently recently told the sitter he is going to "kill himself if he doesn' t get out of the hospital" Pt seen and examined with psychiatrist at the bedside as well. Pt told Dr Rosa that he would consider getting chemo only outpatient Objective Data Date Time Temp Pulse Resp B/P (MAP) Pulse Ox O2 Delivery O2 Flow Rate FiO2 06/20/17 09:25 Room Air 06/20/17 08:49 98.3 83 18 146/75 (98) 95 06/20/17 04:15 98.9 70 18 122/68 (86) 97 06/20/17 04:00 74 06/20/17 00:09 74 06/19/17 23:02 97.9 72 18 136/72 (93) 93 06/19/17 22:20 95/66 (76) 06/19/17 22:15 98/50 (66) 06/19/17 22:04 93 21 06/19/17 20:07 74 06/19/17 20:00 97 Room Air 06/19/17 19:49 99.2 76 110/57 (74) 93 06/19/17 17:53 97.6 74 18 139/73 (95) 95 06/19/17 16:30 68 16 116/72 (87) 93 06/19/17 16:00 64 16 111/68 (82) 93 06/19/17 15:45 64 16 108/62 (77) 93 06/19/17 15:30 98.2 64 16 96/56 (69) 93 06/20/17 06/20/17 06/20/17 07:00 15:00 23:00 Intake Total 480 ml 440 ml Output Total 1950 ml 900 ml Balance -1470 ml -460 ml Result Diagram: 06/20/17 0801 06/20/17 0801 Laboratory Results Laboratory Tests Test 06/19/17 12:59 06/20/17 08:01 White Blood Count 7.2 TH/MM3 7.7 TH/MM3 Red Blood Count 3.94 MIL/MM3 4.02 MIL/MM3 Hemoglobin 10.2 GM/DL 10.3 GM/DL Hematocrit 31.6 % 32.1 % Mean Corpuscular Volume 80.2 FL 79.9 FL Mean Corpuscular Hemoglobin 25.9 PG 25.6 PG Mean Corpuscular Hemoglobin Concent 32.3 % 32.0 % Red Cell Distribution Width 24.1 % 23.8 % Platelet Count 206 TH/MM3 199 TH/MM3 Mean Platelet Volume 7.3 FL 7.4 FL Neutrophils (%) (Auto) 75.5 % 71.8 % Lymphocytes (%) (Auto) 10.6 % 12.3 % Monocytes (%) (Auto) 11.9 % 11.7 % Eosinophils (%) (Auto) 1.6 % 3.9 % Basophils (%) (Auto) 0.4 % 0.3 % Neutrophils # (Auto) 5.4 TH/MM3 5.5 TH/MM3 Lymphocytes # (Auto) 0.8 TH/MM3 0.9 TH/MM3 Monocytes # (Auto) 0.9 TH/MM3 0.9 TH/MM3 Eosinophils # (Auto) 0.1 TH/MM3 0.3 TH/MM3 Basophils # (Auto) 0.0 TH/MM3 0.0 TH/MM3 CBC Comment AUTO DIFF DIFF FINAL Differential Comment AUTO DIFF CONFIRMED Platelet Estimate NORMAL Platelet Morphology Comment NORMAL Ovalocytes 1+ Blood Urea Nitrogen 47 MG/DL 38 MG/DL Creatinine 3.11 MG/DL 2.67 MG/DL Random Glucose 140 MG/DL 178 MG/DL Total Protein 6.4 GM/DL 6.5 GM/DL Calcium Level 6.9 MG/DL 6.8 MG/DL Sodium Level 144 MEQ/L 140 MEQ/L Potassium Level 3.4 MEQ/L 3.3 MEQ/L Chloride Level 109 MEQ/L 105 MEQ/L Carbon Dioxide Level 24.0 MEQ/L 25.3 MEQ/L Anion Gap 11 MEQ/L 10 MEQ/L Estimat Glomerular Filtration Rate 21 ML/MIN 25 ML/MIN Protein Corrected Calcium 7.3 MG/DL 7.1 MG/DL Albumin 2.1 GM/DL Phosphorus Level 2.2 MG/DL Magnesium Level 1.1 MG/DL Alkaline Phosphatase 74 U/L Aspartate Amino Transf (AST/SGOT) 15 U/L Alanine Aminotransferase (ALT/SGPT) 16 U/L Total Bilirubin 0.5 MG/DL Imaging Studies Last 24 hours Impressions Nephrostomy Tube Change 06/19/17 1037 Signed Impressions: Service Date/Time: Monday, June 19, 2017 14:25 - CONCLUSION: Uncomplicated nephrostomy tube exchange as above. Werner Green Jr., MD Administered Medications Medications (Trade) Dose Ordered Sig/Jerzy Route PRN Reason Start Time Stop Time Status Last Admin Dose Admin Sodium Chloride (NS Flush) 2 ml UNSCH PRN IV FLUSH FLUSH AFTER USING IV ACCESS 06/12/17 05:00 06/19/17 01:38 Sodium Chloride (NS Flush) 2 ml BID IV FLUSH 06/12/17 09:00 06/20/17 09:17 Ondansetron HCl (Zofran Inj) 4 mg Q6H PRN IV PUSH NAUSEA OR VOMITING 06/12/17 05:00 06/18/17 13:00 Insulin Aspart (NovoLOG SUPPLEMENTAL SCALE) 1 ACHS SLIDING SCALE SQ 06/12/17 08:00 06/20/17 09:22 Carvedilol (Coreg) 25 mg BID PO 06/12/17 09:00 06/20/17 09:17 Tamsulosin HCl (Flomax) 0.4 mg HS PO 06/12/17 21:00 06/19/17 20:15 Clonidine (Catapres) 0.1 mg Q6H PRN PO SBP>180, DBP>100 06/12/17 06:00 06/17/17 17:50 Sucralfate (Carafate Liq) 1 gm ACHS PO 06/12/17 12:00 06/20/17 09:16 Alprazolam (Xanax) 0.5 mg Q8H PRN PO anxiety 06/12/17 12:00 06/20/17 04:17 Pantoprazole Sodium (Protonix) 40 mg BID PO 06/13/17 21:00 06/20/17 09:16 Sodium Bicarbonate 75 meq/Sodium Chloride 1,075 ml @ 100 mls/hr [id number] IV 06/15/17 07:00 06/19/17 22:22 Acetaminophen (Tylenol) 500 mg Q4H PRN PO musculoskeletal pain 06/16/17 09:45 06/20/17 04:22 Isosorbide Mononitrate (Imdur) 120 mg DAILY PO 06/17/17 09:00 06/20/17 09:17 Hydralazine HCl (Apresoline) 100 mg Q8HR PO 06/18/17 14:00 06/20/17 06:58 Insulin Detemir (Levemir Inj) 5 units Q12HR SQ 06/18/17 21:00 06/20/17 09:17 Calcium/Vitamin D (Oscal-D 250-125) 250 mg Q12HR PO 06/18/17 21:00 06/20/17 09:17 Iron Sucrose 200 mg/Sodium Chloride 110 ml @ 110 mls/hr DAILY IV 06/19/17 09:00 06/21/17 09:59 06/20/17 09:00 Calcitriol (Rocaltrol) 0.25 mcg DAILY PO 06/19/17 19:30 06/20/17 09:17 Bicalutamide (Casodex) 50 mg DAILY PO 06/20/17 09:00 06/20/17 09:17 Objective Remarks GENERAL: Middle aged male lying in bed in nad. SKIN: Warm and dry. HEAD: Normocephalic. EYES: No injection or drainage. NECK: Supple, trachea midline. CARDIOVASCULAR: Regular rate and rhythm RESPIRATORY: Breath sounds equal bilaterally. No accessory muscle use. : bilateral nephrostomy tubes in place. Celaya in place as well. GASTROINTESTINAL: Abdomen soft, non-tender, nondistended. EXTREMITIES: No cyanosis MUSCULOSKELETAL: Adequate muscle tone. NEUROLOGICAL: Awake and alert, normal speech. Moving extremities. Somewhat confused. Assessment/Plan Problem List: (1) Prostate cancer metastatic to bone ICD Codes: C61 - Malignant neoplasm of prostate; C79.51 - Secondary malignant neoplasm of bone Status: Chronic Plan: --may be reasonable to give systemic therapy to palliate obstructive symptoms--Prostate cancer is generally responsive to androgen blockade therapy and addition of systemic therapy would be beneficial in this case. --Will consider giving 1st dose of Docetaxel 75mg /m2 while in-patient Treatment History: July 2016-- Earlimart score of 4 + 4 = 8. tumor involved the prostate bilaterally and extended into the periprosthetic adipose tissue. was initiated on hormone blockade therapy with Lupron injections. --Recently--> developed progressive disease with lymphadenopathy in his right groin. CT scans of the pelvis confirmed the retroperitoneal adenopathy in the left iliac chain. +prominent lymphadenopathy in the pelvic sidewalls. + diffuse bone mets. +incomplete fracture in the left acetabulum and inferior pubic rami and fractures in the right superior inferior pubic rami+bladder wall thickening with a 2.3-cm mass. --bone scan --> widespread osseous metastatic disease involving the thoracic and lumbar spine+ sacral ala bilaterally and right intertrochanteric region. Mets in the proximal humerus and ribs. (2) Severe anemia ICD Codes: D64.9 - Anemia, unspecified Plan: --appears to be secondary to his hematuria. --no evidence of hemolysis. --s/p EGD (3) Hydronephrosis ICD Codes: N13.30 - Unspecified hydronephrosis Status: Acute Plan: --s/p nephrostomy tube placement on 06/17 --Bilateral hydronephrosis with obstruction due to malignancy, bladder mass and gross hematuria. --attempted ureteral stent placement on 06/15 was unsuccessful due tumor burden. --s/p biopsy of bladder mass, awaiting pathology. (4) Acute kidney failure ICD Codes: N17.9 - Acute kidney failure, unspecified Status: Acute Plan: --improved 06/18 after nephrostomy tube placement on 06/17 --due to urinary obstruction and hydronephrosis. Assessment 57y/o male with a history of stage IV prostate cancer admitted with urinary obstruction, hematuria and severe anemia. 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 s/p right-sided orchiectomy. did not receive any adjuvant chemotherapy or radiation treatments. Diabetes type 2 History of coronary stents in 2006. Plan 1. Await pt's functional capacity eval from the psychiatrist 2. Will consider giving inpatient chemotherapy depending on consent. 3. Continue to monitor output from Celaya, nephrostomy tubes. Discussed with Dr Rosa- he is planning to call the pt's family members before making his recommendation. Attending Statement The exam, history, and the medical decision-making described in the above note were completed with the assistance of the mid-level provider. I reviewed and agree with the findings presented. I attest that I had a [id number] encounter with the patient on the same day, and personally performed and documented my assessment and findings in the medical record Appreciate Psychiatry's assistance. Patient is not competent to make decisions No family members at bedside when I rounded earlier Would need to have further conversation with his daughter's regarding any systemic chemotherapy Post treatment compliance with clinic follow up and lab f/u will be necessary and he would need significant amount of help with transportation/at home with meds and daily care Problem Qualifiers (1) Acute kidney failure: Qualified Codes: N17.9 - Acute kidney failure, unspecified Alexandria Sales Jun 20, 2017 09:41 Gonzalez Mosley MD Jun 21, 2017 00:42
[2017-06-20] MEDS ORDERED: CALCIUM CHLORIDE INJ 2 GM in SODIUM CHLORIDE 0.9% INJ 100 ML IV ONE (11:00)
[2017-06-20] MEDS: MAGNESIUM SULFATE 1 GM PREMIX 100 ML IV SCH ×2 (11:13→12:14)
--- NOTE | 2017-06-20 12:10 | PD.PSY.CON ---
Provisional Diagnosis Admission Date Jun 12, 2017 at 03:25 Emerson I. Delirium due to underlying medical conditions History of Present Illness Service Psychiatry Consult Requested By Primary team Reason for Consult Decision-making capacity to leave AMA Primary Care Physician Unknown HPI The patient is a is a 57-year-old man, , retired, domiciled with his daughters, without any previous psychiatric history, no previous suicidal attempts, no previous psychiatric hospitalizations, with medical history of stage IV prostate cancer, insulin-dependent diabetes mellitus type 2 , hypertension, CAD and CHF. Patient presented to ED on 06/12/17 with complaints of generalized weakness, epigastric pain, urinary retention and GI bleed. Clinical course complicated by bilateral obstructive uropathy and hydronephrosis s/p cystoscopy and palliative partial transurethral resection of bladder mass and bilateral nephrostomy tube placement. As per palliative car, Patient's overall prognosis is poor given stage IV prostate cancer with metastasis to bone and bladder, multiple comorbidities and profound physical deconditioning. Patient has been off her palliative chemotherapy that he has been refusing and he has been requesting to be discharged and to leave AMA. He was consulted to psychiatry to assess decision-making capacity. Chart was reviewed. Case discussed with nursing charge and also with oncology team. Collateral information from his daughter Alondra Miller was obtained. On psychiatric evaluation today the patient is found actually calm, cooperative and very pleasant. However, the patient is confused, at times disorganized, with visible fluctuation of consciousness and attention, tangential and using consult auditory information in order to fill up memory gaps. He says that he needs to go home because his daughter has an adopted child then is to be taken care by him because my daughter is going to alf. He says that for him is very important to be able to take her of this 2 years old kid. He also says that he has to take her of his grandmother, who lives with him. He reports good mood, he denies depressive symptoms, he denies anxiety, he denies yvonne and psychosis, he denies suicidal and homicidal ideation, he denies visual and auditory hallucinations. Patient is just partially oriented, he says that he is in [place], but he stays that [place] is in [facility]. MMS is currently 23/30 with deficits in recent and intermediate memory, executive function, attention and abstraction. Patient denies the use of drugs and alcohol. His daughter states that the patient is completely confused and he doesnt make any sense. She says that he is living able to recognize her voice when she calls by phone. She clarifies that the patient does not live with his grandmother, and his grandmother many years ago. She has clarifies that the kid that the patient is talking about lives in another state and not daughter is going to alf. She says that the patient mental capacity has been deteriorating progressively since he is in the hospital. She confirms that the patient does not have any previous psychiatric history and he doesnt use drugs or alcohol. She clarifies that family already met with primary treating team and they have decided that the person helping the patient is to make decisions his daughter Afshan. Review of Systems Constitutional: DENIES: Diaphoretic episodes, Fatigue, Fever, Weight gain, Weight loss, Chills, Dizziness, Change in appetite, Night Sweats Endocrine: DENIES: Heat/cold intolerance, Polydipsia, Polyuria, Polyphagia Eyes: DENIES: Blurred vision, Diplopia, Eye inflammation, Eye pain, Vision loss , Photosensitivity, Double Vision Ears, nose, mouth, throat: DENIES: Tinnitus, Hearing loss, Vertigo, Nasal discharge, Oral lesions, Throat pain, Hoarseness, Ear Pain, Running Nose, Epistaxis, Sinus Pain, Toothache, Odynophagia Respiratory: DENIES: Apneas, Cough, Snoring, Wheezing, Hemoptysis, Sputum production, Shortness of breath Cardiovascular: DENIES: Chest pain, Palpitations, Syncope, Dyspnea on Exertion , PND, Lower Extremity Edema, Orthopnea, Claudication Gastrointestinal: DENIES: Abdominal pain, Black stools, Bloody stools, Constipation, Diarrhea, Nausea, Vomiting, Difficulty Swallowing, Anorexia Genitourinary: DENIES: Sexual dysfunction, Urinary frequency, Urinary incontinence, Urgency, Hematuria, Dysuria, Nocturia, Penile Discharge, Testicular Pain, Testicular Swelling Musculoskeletal: DENIES: Joint pain, Muscle aches, Stiffness, Joint Swelling, Back pain, Neck pain Hematologic/lymphatic: DENIES: Bruising, Lymphadenopathy Immunologic/allergic: DENIES: Eczema, Urticaria Neurologic: DENIES: Abnormal gait, Headache, Localized weakness, Paresthesias, Seizures, Speech Problems, Tremor, Poor Balance Psychiatric: COMPLAINS OF: Confusion, Delusions Past Family Social History Coded Allergies: glyburide (Verified Allergy, Severe, RASH, 06/12/17) amlodipine (Verified Allergy, Unknown, 06/12/17) rhabdomyolysis atorvastatin (Verified Allergy, Unknown, 06/12/17) rhabdomyolysis metformin (Verified Allergy, Unknown, Rash, 06/12/17) pravastatin (Verified Allergy, Unknown, 06/12/17) rhabdomyolysis simvastatin (Verified Allergy, Unknown, 06/12/17) rhabdomyolysis Active Scripts Phenazopyridine (Phenazopyridine) 100 Mg Tab, 100 MG PO Q8H Y for DYSURIA, #6 TAB 0 Refills Prov:Kapil Eldridge MD 02/19/17 Hydrocodone-Acetaminophen (Hydrocodone-Acetaminophen) 10-325 mg Tab, 1 TAB PO Q6HR Y for PAIN SCALE 5 TO 10, #120 TAB Prov:Kapil Eldridge MD 02/19/17 Commode 3-in-1 (Commode 3-in-1) 1 Mis Mis, EA .ROUTE DIRECTED, #1 0 Refills Prov:Kapil Eldridge MD 02/19/17 Walker with Front Wheels (Walker with Front Wheels) 1 Mis Mis, EA .ROUTE DIRECTED, #1 0 Refills Prov:Kapil Eldridge MD 02/19/17 Wheelchair (Wheelchair) 1 Mis Mis, EA .ROUTE DIRECTED, #1 0 Refills Prov:Kapil Eldridge MD 02/19/17 Lisinopril (Lisinopril) 40 Mg Tab, 40 MG PO BID for Blood Pressure Management, # 60 TAB 0 Refills Prov:Kj Villalpando MD 08/01/16 Insulin Glargine Inj (Lantus Solostar Pen Inj) 300 Unit/3 Ml Pen, 48 UNITS SQ HS for Blood Sugar Management, #30 PEN 0 Refills Prov:Kj Villalpando MD 07/31/[address] (Aspirin EC) 81 Mg Tabdr, 81 MG PO DAILY for Prevent Blood Clot, #30 TAB Prov:Kj Villalpando MD 07/31/16 Reported Medications Insulin Aspart Inj (Novolog Flexpen Inj) 300 Unit/3 Ml Pen, SQ TIDAC for Blood Sugar Management, #1 PEN 0 Refills PER SLIDING SCALE 02/17/17 Gabapentin (Gabapentin) 300 Mg Cap, 300 MG PO BID, #60 CAP 0 Refills 07/26/16 Carvedilol (Coreg) 25 Mg Tab, 25 MG PO BID, #60 TAB 0 Refills 07/26/16 Tamsulosin (Flomax) 0.4 Mg Cap, 0.4 MG PO HS for Manage Prostate Problems, #30 CAP 0 Refills 07/26/16 Current Medications Medications (Trade) Dose Ordered Sig/Jerzy Route Start Time Stop Time Status Last Admin (NS Flush) 2 ml UNSCH PRN IV FLUSH 06/12/17 05:00 06/19/17 01:38 (NS Flush) 2 ml BID IV FLUSH 06/12/17 09:00 06/20/17 09:17 (Zofran Inj) 4 mg Q6H PRN IV PUSH 06/12/17 05:00 06/18/17 13:00 (D50w (Vial) Inj) 50 ml UNSCH PRN IV PUSH 06/12/17 05:30 (Glucagon Inj) 1 mg UNSCH PRN OTHER 06/12/17 05:30 (NovoLOG SUPPLEMENTAL SCALE) 1 ACHS SLIDING SCALE SQ 06/12/17 08:00 06/20/17 09:22 (Coreg) 25 mg BID PO 06/12/17 09:00 06/20/17 09:17 (Flomax) 0.4 mg HS PO 06/12/17 21:00 06/19/17 20:15 (Duoneb Neb) 1 ampule Q4HR NEB PRN NEB 06/12/17 05:45 (Catapres) 0.1 mg Q6H PRN PO 06/12/17 06:00 06/17/17 17:50 (Carafate Liq) 1 gm ACHS PO 06/12/17 12:00 06/20/17 09:16 (Xanax) 0.5 mg Q8H PRN PO 06/12/17 12:00 06/20/17 04:17 (Protonix) 40 mg BID PO 06/13/17 21:00 06/20/17 09:16 Sodium Bicarbonate 75 meq/Sodium Chloride 1,075 ml @ 100 mls/hr [id number] IV 06/15/17 07:00 06/19/17 22:22 (Tylenol) 500 mg Q4H PRN PO 06/16/17 09:45 06/20/17 04:22 (Imdur) 120 mg DAILY PO 06/17/17 09:00 06/20/17 09:17 (Pill Splitter) 1 ea UNSCH PRN OTHER 06/17/17 12:00 (Apresoline) 100 mg Q8HR PO 06/18/17 14:00 06/20/17 06:58 (Levemir Inj) 5 units Q12HR SQ 06/18/17 21:00 06/20/17 09:17 (Oscal-D 250-125) 250 mg Q12HR PO 06/18/17 21:00 06/20/17 09:17 Iron Sucrose 200 mg/Sodium Chloride 110 ml @ 110 mls/hr DAILY IV 06/19/17 09:00 06/21/17 09:59 06/20/17 09:00 (Rocaltrol) 0.25 mcg DAILY PO 06/19/17 19:30 06/20/17 09:17 (Casodex) 50 mg DAILY PO 06/20/17 09:00 06/20/17 09:17 (K-Phos Neutral) 250 mg Q6HR PO 06/20/17 12:00 Calcium Chloride 2 gm/Sodium Chloride 120 ml @ 120 mls/hr ONCE ONCE IV 06/20/17 11:00 06/20/17 11:59 (Haldol) 1 mg BID PO 06/20/17 11:30 UNV (Haldol Inj) 2 mg Q6H PRN IM 06/20/17 11:30 UNV Family Psych History No family psychiatric history Social History Patient was born and raised in [facility], he lives in [facility] with his daughters, he is , retired, his highest level of education is college Patient's Strengths (min. 2) Family support Physical Exam No psychomotor agitation or retardation, no tremors, no stiffness, no EPS, Vital Signs Vital Signs Date Time Temp Pulse Resp B/P (MAP) Pulse Ox O2 Delivery O2 Flow Rate FiO2 06/20/17 10:44 97 21 06/20/17 09:25 Room Air 06/20/17 08:49 98.3 83 18 146/75 (98) I/O 06/20/17 06/20/17 06/21/17 08:00 16:00 00:00 Intake Total 480 ml 440 ml Output Total 1950 ml 900 ml Balance -1470 ml -460 ml Lab Results Test 06/19/17 12:59 06/20/17 08:01 White Blood Count 7.2 TH/MM3 7.7 TH/MM3 Red Blood Count 3.94 MIL/MM3 4.02 MIL/MM3 Hemoglobin 10.2 GM/DL 10.3 GM/DL Hematocrit 31.6 % 32.1 % Mean Corpuscular Volume 80.2 FL 79.9 FL Mean Corpuscular Hemoglobin 25.9 PG 25.6 PG Mean Corpuscular Hemoglobin Concent 32.3 % 32.0 % Red Cell Distribution Width 24.1 % 23.8 % Platelet Count 206 TH/MM3 199 TH/MM3 Mean Platelet Volume 7.3 FL 7.4 FL Neutrophils (%) (Auto) 75.5 % 71.8 % Lymphocytes (%) (Auto) 10.6 % 12.3 % Monocytes (%) (Auto) 11.9 % 11.7 % Eosinophils (%) (Auto) 1.6 % 3.9 % Basophils (%) (Auto) 0.4 % 0.3 % Neutrophils # (Auto) 5.4 TH/MM3 5.5 TH/MM3 Lymphocytes # (Auto) 0.8 TH/MM3 0.9 TH/MM3 Monocytes # (Auto) 0.9 TH/MM3 0.9 TH/MM3 Eosinophils # (Auto) 0.1 TH/MM3 0.3 TH/MM3 Basophils # (Auto) 0.0 TH/MM3 0.0 TH/MM3 CBC Comment AUTO DIFF DIFF FINAL Differential Comment AUTO DIFF CONFIRMED Platelet Estimate NORMAL Platelet Morphology Comment NORMAL Ovalocytes 1+ Blood Urea Nitrogen 47 MG/DL 38 MG/DL Creatinine 3.11 MG/DL 2.67 MG/DL Random Glucose 140 MG/DL 178 MG/DL Total Protein 6.4 GM/DL 6.5 GM/DL Calcium Level 6.9 MG/DL 6.8 MG/DL Sodium Level 144 MEQ/L 140 MEQ/L Potassium Level 3.4 MEQ/L 3.3 MEQ/L Chloride Level 109 MEQ/L 105 MEQ/L Carbon Dioxide Level 24.0 MEQ/L 25.3 MEQ/L Anion Gap 11 MEQ/L 10 MEQ/L Estimat Glomerular Filtration Rate 21 ML/MIN 25 ML/MIN Protein Corrected Calcium 7.3 MG/DL 7.1 MG/DL Albumin 2.1 GM/DL Phosphorus Level 2.2 MG/DL Magnesium Level 1.1 MG/DL Alkaline Phosphatase 74 U/L Aspartate Amino Transf (AST/SGOT) 15 U/L Alanine Aminotransferase (ALT/SGPT) 16 U/L Total Bilirubin 0.5 MG/DL Date/Time Source Procedure Growth Status 06/12/17 02:55 Urine Catheterized Urine Urine Culture - Final NO GROWTH IN 48 HOURS. Complete Mental Status Examination Appearance: Appropriate Consciousness: Alert Orientation: Person, Place (partially) Motor Activity: Normal gait Speech: Unremarkable Language: Adequate Fund of Knowledge: Adequate Attention and Concentration: Inadequate Memory: Impaired Mood: Appropriate Affect: Appropriate Thought Process & Associations: Loose associations Thought Content: Bizarre thinking, Other (confabulations) Hallucination Type: None Delusion Type: None Suicidal Ideation: No Suicidal Plan: No Suicidal Intention: No Homicidal Ideation: No Homicidal Plan: No Homicidal Intention: No Insight: Fair Judgment: Impulsive Assessment & Plan Problem List: (1) Delirium due to another medical condition ICD Codes: F05 - Delirium due to known physiological condition Assessment & Plan: On psychiatric evaluation today patient presents with symptoms that are consistent with delirium most probably related with his multiple underlying medical conditions, symptomatology consistent on disorientation, fluctuation of consciousness, erratic behavior, poor judgment, agitation, confusion and confabulatory statements. MMS at this moment is 23 of 30. Patient is unable to verbalize the reason of his hospitalization,a real understanding and appreciation of his current medical condition and its severity and the consequences of leaving the hospital and not following medical recommendations. Patient mental lucidity is affected by his current medical conditions, he is not at baseline, this has been confirmed by his daughter. Giving his current altered mental status and delirium the patient is unable to make a rational choice and for this reason he does not have decision-making capacity to leave [facility] or to participate in treatment planning at this moment. Healthcare by proxy, already identified as his daughter Alondra will work with palliative care in order to coordinate goals of care and a safe discharge plan. Patient does not meet criteria for involuntary psychiatric admission at this moment. I will order Haldol 1 mg twice a day to help with delirium, also Haldol 2 mg IM every 8 hours when necessary agitation and potential aggressive behavior. Consult appreciated. Assessment & Plan Estimated LOS: Torey Skelton MD Jun 20, 2017 12:10
[2017-06-20] MEDS ORDERED: HALOPERIDOL LACTATE 5 MG/ML AMP IM PRN (12:15)
[2017-06-20] MEDS: HALOPERIDOL 1 MG TAB PO SCH ×2 (12:15→20:26)
[2017-06-20] MEDS: POTASSIUM PHOSPHATE/SODIUM PHOSPHATE 250 MG TAB PO SCH ×3 (12:15→22:57)
[2017-06-20] MEDS: SODIUM BICARBONATE 8.4% INJ 75 MEQ in SODIUM CHLOR 0.45% 1000 ML INJ 1,000 ML IV SCH (16:10)
--- NOTE | 2017-06-20 16:23 | HHI.HCPN ---
Reason for visit a. To assist with evaluation and management of symptoms including: Restlessness, debility. b. To assist medical decision maker(s) with: better understanding of current medical conditions; weighing benefits/burdens of medical treatment options; making medical treatment decisions. . Subjective/Interval History Palliative care follow-up for further clarifications of goals of care. Patient seen in his room, resting in bed in no acute distress. Patient sleeping, sitter at bedside. Patient briefly opening eyes to verbal stimulation, sleepy. Left nephrostomy tube replaced yesterday secondary to tight kink in the tube, obstruction resolved. Both nephrostomy tubes with clear urine noted. Kidney function continues to improve, BUN/creatinine today 38/2.67. Nephrology following. Oncology considering palliative systemic therapy which may help with obstructive symptoms. This was presented to patient's daughter Afshan yesterday. Psychiatry was consulted to determine patient's medical decision- making capacity, he was seen by Dr. Rosa. As per psychiatry "patient mental lucidity is affected by his current medical conditions, he is not at baseline, this has been confirmed by his daughter. Giving his current altered mental status and delirium the patient is unable to make a rational choice and for this reason he does not have decision-making capacity to leave AMA or to participate in treatment planning at this moment". Patient remains afebrile, stable hemodynamically. Tolerating room air, oxygen saturation in the mid to high 90s. No new imaging for review. Telephone conversation with patient's daughter Afshan and ex- Erna Bravo. Family was updated on patient's medical condition and palliative treatment options as offered by oncology. Lupe tells me that family still deliberating regarding goals of care. Family was encouraged to communicate with oncology for specific on palliative chemotherapy offered, benefits versus burden and length of treatment. Case discussed with Alexandria Ya and Dr. Britt. . Family/friend interactions See interval note. . Advance Directives Living Will: Completed, but not made available Health Care Surrogate: Completed, but not made available Advance Directive Specifics Health Care Surrogate(s): Advance directives reported as completed. Patient's ex- Erna Bravo presented herself as healthcare surrogate decision maker. Pending copy of advance directives. In the absence of AD and as per [place] statute, healthcare proxy decision-making would fall to patient's 2 daughters Marlene. . Significant change in goals: Ongoing goals of care conversation. Objective Vital Signs Date Time Temp Pulse Resp B/P (MAP) Pulse Ox O2 Delivery O2 Flow Rate FiO2 06/20/17 12:05 98.4 70 18 106/56 (73) 98 06/20/17 10:44 97 21 06/20/17 09:25 Room Air 06/20/17 08:49 98.3 83 18 146/75 (98) 95 06/20/17 08:00 80 06/20/17 04:15 98.9 70 18 122/68 (86) 97 06/20/17 04:00 74 06/20/17 00:09 74 06/19/17 23:02 97.9 72 18 136/72 (93) 93 06/19/17 22:20 95/66 (76) 06/19/17 22:15 98/50 (66) 06/19/17 22:04 93 21 06/19/17 20:07 74 06/19/17 20:00 97 Room Air 06/19/17 19:49 99.2 76 110/57 (74) 93 06/19/17 17:53 97.6 74 18 139/73 (95) 95 06/19/17 16:30 68 16 116/72 (87) 93 Intake & Output 06/20/17 06/20/17 07:00 19:00 Intake Total 1840 ml 640 ml Output Total 2900 ml 1700 ml Balance -1060 ml -1060 ml Intake Oral 720 ml 440 ml IV Total 1120 ml 200 ml Output Urine Total 100 ml Drainage Total 2800 ml 1700 ml Physical Exam CONSTITUTIONAL/GENERAL: This is an adequately nourished patient, in no apparent distress. TUBES/LINES/DRAINS: PIV, bilateral nephrostomy tubes, Celaya catheter. SKIN: No jaundice, rashes, or lesions. Ecchymoses on upper extremities. No wounds seen anteriorly. Skin temperature appropriate. Not diaphoretic. HEAD: Atraumatic. Normocephalic. EYES: Pupils equal and round and reactive. Extraocular motions intact. No scleral icterus. No injection or drainage. Fundi not examined. ENT: Hearing grossly normal. Nose without bleeding or purulent drainage. Moist oral mucosa. NECK: Trachea midline. Supple, nontender. CARDIOVASCULAR: Regular rate and rhythm without murmurs, gallops, or rubs. No JVD. Peripheral pulses symmetric. RESPIRATORY/CHEST: Symmetric, unlabored respirations. Clear to auscultation. Breath sounds equal bilaterally. GASTROINTESTINAL: Abdomen soft, non-tender, nondistended. No guarding. Bowel sounds present. GENITOURINARY: Without palpable bladder distension. Celaya catheter in place with small amount of hematuria. Bilateral nephrostomy tubes in place. MUSCULOSKELETAL: Extremities without clubbing, cyanosis. Bilateral lower extremity edema. No mottling or clubbing. NEUROLOGICAL: Limited neurological evaluation, patient sleeping during my assessment. Briefly opening eyes to verbal stimuli. Somnolent. PSYCHIATRIC: Appears calm. . Diagnostic Tests Laboratory Laboratory Tests Test 06/18/17 07:41 06/18/17 16:13 06/19/17 12:59 06/20/17 08:01 White Blood Count 8.6 TH/MM3 (4.0-11.0) 7.2 TH/MM3 (4.0-11.0) 7.7 TH/MM3 (4.0-11.0) Red Blood Count 4.05 MIL/MM3 (4.50-5.90) 3.94 MIL/MM3 (4.50-5.90) 4.02 MIL/MM3 (4.50-5.90) Hemoglobin 10.5 GM/DL (13.0-17.0) 10.2 GM/DL (13.0-17.0) 10.3 GM/DL (13.0-17.0) Hematocrit 31.9 % (39.0-51.0) 31.6 % (39.0-51.0) 32.1 % (39.0-51.0) Mean Corpuscular Volume 78.8 FL (80.0-100.0) 80.2 FL (80.0-100.0) 79.9 FL (80.0-100.0) Mean Corpuscular Hemoglobin 25.9 PG (27.0-34.0) 25.9 PG (27.0-34.0) 25.6 PG (27.0-34.0) Mean Corpuscular Hemoglobin Concent 32.8 % (32.0-36.0) 32.3 % (32.0-36.0) 32.0 % (32.0-36.0) Red Cell Distribution Width 24.1 % (11.6-17.2) 24.1 % (11.6-17.2) 23.8 % (11.6-17.2) Platelet Count 197 TH/MM3 (150-450) 206 TH/MM3 (150-450) 199 TH/MM3 (150-450) Mean Platelet Volume 7.0 FL (7.0-11.0) 7.3 FL (7.0-11.0) 7.4 FL (7.0-11.0) Neutrophils (%) (Auto) 78.6 % (16.0-70.0) 75.5 % (16.0-70.0) 71.8 % (16.0-70.0) Lymphocytes (%) (Auto) 6.5 % (9.0-44.0) 10.6 % (9.0-44.0) 12.3 % (9.0-44.0) Monocytes (%) (Auto) 12.1 % (0.0-8.0) 11.9 % (0.0-8.0) 11.7 % (0.0-8.0) Eosinophils (%) (Auto) 2.5 % (0.0-4.0) 1.6 % (0.0-4.0) 3.9 % (0.0-4.0) Basophils (%) (Auto) 0.3 % (0.0-2.0) 0.4 % (0.0-2.0) 0.3 % (0.0-2.0) Neutrophils # (Auto) 6.8 TH/MM3 (1.8-7.7) 5.4 TH/MM3 (1.8-7.7) 5.5 TH/MM3 (1.8-7.7) Lymphocytes # (Auto) 0.6 TH/MM3 (1.0-4.8) 0.8 TH/MM3 (1.0-4.8) 0.9 TH/MM3 (1.0-4.8) Monocytes # (Auto) 1.0 TH/MM3 (0-0.9) 0.9 TH/MM3 (0-0.9) 0.9 TH/MM3 (0-0.9) Eosinophils # (Auto) 0.2 TH/MM3 (0-0.4) 0.1 TH/MM3 (0-0.4) 0.3 TH/MM3 (0-0.4) Basophils # (Auto) 0.0 TH/MM3 (0-0.2) 0.0 TH/MM3 (0-0.2) 0.0 TH/MM3 (0-0.2) CBC Comment DIFF FINAL AUTO DIFF DIFF FINAL Differential Comment AUTO DIFF CONFIRMED Blood Urea Nitrogen 63 MG/DL (7-18) 47 MG/DL (7-18) 38 MG/DL (7-18) Creatinine 3.92 MG/DL (0.60-1.30) 3.11 MG/DL (0.60-1.30) 2.67 MG/DL (0.60-1.30) Random Glucose 200 MG/DL (74-106) 140 MG/DL (74-106) 178 MG/DL (74-106) Total Protein 7.0 GM/DL (6.4-8.2) 7.3 GM/DL (6.4-8.2) 6.4 GM/DL (6.4-8.2) 6.5 GM/DL (6.4-8.2) Calcium Level 7.1 MG/DL (8.5-10.1) 6.9 MG/DL (8.5-10.1) 6.8 MG/DL (8.5-10.1) Phosphorus Level 3.6 MG/DL (2.5-4.9) 2.2 MG/DL (2.5-4.9) Sodium Level 145 MEQ/L (136-145) 144 MEQ/L (136-145) 140 MEQ/L (136-145) Potassium Level 3.5 MEQ/L (3.5-5.1) 3.4 MEQ/L (3.5-5.1) 3.3 MEQ/L (3.5-5.1) Chloride Level 115 MEQ/L (98-107) 109 MEQ/L (98-107) 105 MEQ/L (98-107) Carbon Dioxide Level 19.5 MEQ/L (21.0-32.0) 24.0 MEQ/L (21.0-32.0) 25.3 MEQ/L (21.0-32.0) Anion Gap 11 MEQ/L (5-15) 11 MEQ/L (5-15) 10 MEQ/L (5-15) Estimat Glomerular Filtration Rate 16 ML/MIN (>89) 21 ML/MIN (>89) 25 ML/MIN (>89) Protein Corrected Calcium 7.2 MG/DL (8.5-10.1) 7.3 MG/DL (8.5-10.1) 7.1 MG/DL (8.5-10.1) Total Bilirubin 0.5 MG/DL (0.2-1.0) 0.5 MG/DL (0.2-1.0) Direct Bilirubin 0.2 MG/DL (0.0-0.2) Indirect Bilirubin 0.3 MG/DL (0.0-0.8) Aspartate Amino Transf (AST/SGOT) 14 U/L (15-37) 15 U/L (15-37) Alanine Aminotransferase (ALT/SGPT) 20 U/L (12-78) 16 U/L (12-78) Alkaline Phosphatase 88 U/L (45-117) 74 U/L (45-117) Albumin 2.4 GM/DL (3.4-5.0) 2.1 GM/DL (3.4-5.0) Platelet Estimate NORMAL (NORMAL) Platelet Morphology Comment NORMAL (NORMAL) Ovalocytes 1+ (NORMAL) Magnesium Level 1.1 MG/DL (1.5-2.5) Result Diagram: 06/20/17 0801 06/20/17 0801 Procedures * 06/19/17 -replacement of left nephrostomy tube * 06/15/17 -cystoscopy and palliative partial transurethral resection of bladder mass * 06/15/17 -bilateral nephrostomy tubes . Assessment and Plan Disease Oriented Problem List: (1) Acute metabolic encephalopathy (2) Chronic systolic CHF (congestive heart failure) (3) Prostate cancer metastatic to multiple sites (4) CAD (coronary artery disease), [place] coronary artery (5) Anemia due to acute blood loss (6) Hypertension Symptom Scale: (1) Agitation 0-10 Scale: 0 Comment: Metabolic encephalopathy (2) Debility 0-10 Scale: Unable to quantify Comment: Progressive, secondary to burden of disease. Pertinent Non-Medical Issues Psychosocial: Patient originally from [place], [place]. Moved to [place] in 1997. 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 No service. Patient is , previously for 17 years. Has 2 daughters, Afshan and Alondra who are twins. Spiritual: [employer] m[employer]on. Legal: Advance directives reported as completed. Pending copy. Ethical issues impacting care: Patient unable to participate in medical decision -making secondary to confusion. . Important Contacts Patient's daughter Afshan Bravo Patient's daughter Alondra Bravo Patient's ex- Erna Bravo . Prognosis Mr. Bravo is a 57-year-old male with a medical history significant for stage IV prostate cancer, insulin-dependent diabetes mellitus type 2, hypertension, CAD and CHF. Patient presented to ED on 06/12/17 with complaints of generalized weakness, epigastric pain, urinary retention and GI bleed. Clinical course complicated by bilateral obstructive uropathy and hydronephrosis s/p cystoscopy and palliative partial transurethral resection of bladder mass and bilateral nephrostomy tube placement. Patient's overall prognosis is poor given stage IV prostate cancer with metastasis to bone and bladder, multiple comorbidities and profound physical deconditioning. Patient unlikely to be a candidate for outpatient palliative systemic therapy given poor performance status. Patient appears hospice appropriate should patient/ family elects comfort-directed care. . Code Status: Full Code Plan * CODE STATUS: Full code at this time. * HEALTHCARE DECISION-MAKING: Patient lacks medical decision-making capacity as per psychiatry consult 06/20/17, likely to regain given delirium. Advance directives reported as completed. Patient's ex- Erna Bravo presented herself as healthcare surrogate decision maker. Pending copy of advance directives. In the absence of AD and as per [place] statute, healthcare proxy decision-making would fall to patient's 2 daughters Afshan and Alondra. Palliative care recommends shared decision-making with patient's ex- Erna and 2 daughters Afshan and Alondra until advance directives are secured and verified. * GOALS OF CARE: 06/20/17 - As per pt's daughter Afshan and ex- Erna, family is still deliberating regarding goals of care. Currently considering palliative chemotherapy, they were encouraged to communicate with oncology for specific on palliative chemotherapy offered, benefits versus burden of treatment option and length of treatment. Family electing to maximize current medical management; their goal of therapy is to improve patient's quality of life and prolong his survival. * SYMPTOMS: = Restlessness/agitation. Psychiatry consulted to determine capacity for medical decision-making. Patient was placed on Haldol twice a day and when necessary. Sitter at bedside for safety. No additional recommendations. = Debility, secondary to progression of illness. PT following , home with home health PT recommended. = Pain, secondary to burden of disease. Tylenol available as needed, has received 2 doses yesterday and 2 doses today. No further recommendations. * Case discussed with Alexandria Ya and Dr. Britt. * Palliative care contact information has been provided to patient's family. * Palliative care will continue to follow-up for further clarifications of goals of care as patient's clinical course continues to evolve. . Time Spent Total Floor Time (mins): 38 (Total time to include review of medical records, physical exam, goals of care conversation with patient's daughter and ex-, case discussion with oncology and Dr. Britt.) >50% Counseling/Coord of Care: Yes Attestation To help prompt me to consider important information that might be impacting today's encounter and assessment, information from prior notes written by myself or my colleagues may have been "brought forward" into today's note. My signature on this note, however, is an attestation that I personally performed the exam, history, and/or decision-making noted today, and, unless otherwise indicated, the interactions with patient, family, and staff as well as the review of records all occurred today. I also attest that the listed assessment and stated plan reflect my best clinical judgment today based on the combination of historical information, prior notes, and today's exam/ interactions. When time spent is documented, it refers only to time spent today by the signer, or if indicated, combined time spent today by collaborating physician/nurse practitioner. Jacquelin Marie Jun 20, 2017 16:23
--- NOTE | 2017-06-20 17:32 | HHI.NPPN ---
Subjective History of Present Illness 7-year-old male with past medical history of adenocarcinoma of the prostate with metastasis, hypertension, diabetes mellitus, ischemic heart disease, chronic kidney disease who was admitted with complaint of nausea, vomiting and abdominal pain. I was called to see the patient because of very high BUN and creatinine. The patient has a history of chronic kidney disease. His creatinine has been around 1.8 to 1.6. Additional Remarks Patient is more alert, not fully oriented, want to go home, not in distress. Review of Systems General General Remarks Unable to give much review of system. Objective Data Data 06/20/17 06/21/17 19:00 07:00 Intake Total 640 ml Output Total 2700 ml Balance -2060 ml Intake Oral 440 ml IV Total 200 ml Drainage Total 2700 ml Vital Signs Date Time Temp Pulse Resp B/P (MAP) Pulse Ox O2 Delivery O2 Flow Rate FiO2 06/20/17 15:58 99.2 74 18 114/57 (76) 95 06/20/17 12:05 98.4 70 18 106/56 (73) 98 06/20/17 10:44 97 21 06/20/17 09:25 Room Air 06/20/17 08:49 98.3 83 18 146/75 (98) 95 06/20/17 08:00 80 06/20/17 04:15 98.9 70 18 122/68 (86) 97 06/20/17 04:00 74 06/20/17 00:09 74 06/19/17 23:02 97.9 72 18 136/72 (93) 93 06/19/17 22:20 95/66 (76) 06/19/17 22:15 98/50 (66) 06/19/17 22:04 93 21 06/19/17 20:07 74 06/19/17 20:00 97 Room Air 06/19/17 19:49 99.2 76 110/57 (74) 93 06/19/17 17:53 97.6 74 18 139/73 (95) 95 -: 06/20/17 0801 06/20/17 0801 Physical Exam General Appearance: No Acute Distress, Comfortable Eyes Eye Exam: Pupils Equal Neck Neck Exam: Neck Supple, Trachea Midline Pulmonary Resp Exam: Breath Sounds Equal, No Distress, Rhonchi Cardiology CV Exam: Regular, Normal Sinus Rhythm Gastrointestinal/Abdomen GI Exam: Soft, Non-Tender, Bowel Sounds Present Extremeties Extremities Exam: Trace Edema Neurologic Neuro Exam: Alert, Awake Assessment/Plan Assessment Summary: MIRYAM/Acute Renal Failure, Hypertension Electrolyte Assessment: Metabolic Acidosis Problem List: (1) Benign essential hypertension Status: Chronic (2) CAD (coronary artery disease) ICD Codes: I25.10 - Atherosclerotic heart disease of [place] coronary artery without angina pectoris Status: Chronic (3) History of CHF (congestive heart failure) ICD Codes: Z86.79 - Personal history of other diseases of the circulatory system Status: Chronic (4) Diabetes mellitus, type 2 ICD Codes: E11.9 - Diabetes mellitus, type 2 Status: Chronic (5) Prostate CA ICD Codes: C61 - Malignant neoplasm of prostate (6) Hematuria ICD Codes: R31.9 - Hematuria, unspecified Status: Acute (7) Acute on chronic renal failure ICD Codes: N17.9 - Acute kidney failure, unspecified; N18.9 - Chronic kidney disease, unspecified Status: Acute Plan Patient has chronic kidney disease and develop MIRYAM. Most likely due to obstructive uropathy. Had Cystoscopy done. Has bladder tumor removed. Unable to get stent in the ureter. Had bilateral Nephrostomy done on 06/15. BUN and Creatinine continue to improve. K is now normal. Po4 is now normalized. Calcium is low, on Oscal and got IV Calcium , also on Rocaltrol. Also got Magnesium. Problem Qualifiers (1) CAD (coronary artery disease): Qualified Codes: I25.10 - Atherosclerotic heart disease of [place] coronary artery without angina pectoris Raquel Allen MD Jun 20, 2017 17:32
--- NOTE | 2017-06-20 18:14 | HHI.PR ---
Subjective Remarks Deferred entry, the patient seen earlier around 9 AM. The patient states that he feels well and would like to be discharge. The patient denies any chest pain, shortness of breath. Objective Vitals Vital Signs Date Time Temp Pulse Resp B/P (MAP) Pulse Ox O2 Delivery O2 Flow Rate FiO2 06/20/17 15:58 99.2 74 18 114/57 (76) 95 06/20/17 12:05 98.4 70 18 106/56 (73) 98 06/20/17 10:44 97 21 06/20/17 09:25 Room Air 06/20/17 08:49 98.3 83 18 146/75 (98) 95 06/20/17 08:00 80 06/20/17 04:15 98.9 70 18 122/68 (86) 97 06/20/17 04:00 74 06/20/17 00:09 74 06/19/17 23:02 97.9 72 18 136/72 (93) 93 06/19/17 22:20 95/66 (76) 06/19/17 22:15 98/50 (66) 06/19/17 22:04 93 21 06/19/17 20:07 74 06/19/17 20:00 97 Room Air 06/19/17 19:49 99.2 76 110/57 (74) 93 I/O 06/19/17 06/19/17 06/19/17 06/20/17 06/20/17 06/20/17 07:00 15:00 23:00 07:00 15:00 23:00 Intake Total 400 ml 122 ml 2320 ml 480 ml 640 ml 600 ml Output Total 3025 ml 250 ml 2050 ml 1950 ml 900 ml 2450 ml Balance -2625 ml -128 ml 270 ml -1470 ml -260 ml -1850 ml Intake Oral 400 ml 1200 ml 480 ml 440 ml 600 ml IV Total 122 ml 1120 ml 200 ml Output Urine Total 500 ml 100 ml Drainage Total 2525 ml 250 ml 2050 ml 1850 ml 900 ml 2450 ml Result Diagram: 06/20/17 0801 06/20/17 0801 Imaging Last Impressions Nephrostomy Tube Change 06/19/17 1037 Signed Impressions: Service Date/Time: Monday, June 19, 2017 14:25 - CONCLUSION: Uncomplicated nephrostomy tube exchange as above. Werner Lawrence Jr., MD Abdomen/Pelvis CT 06/19/17 0000 Signed Impressions: Service Date/Time: Monday, June 19, 2017 00:22 - CONCLUSION: 1. Widespread sclerotic bony metastases. 2. Retroperitoneal, lateral pelvic, and inguinal adenopathy. 3. Suspected diffuse bladder wall thickening. The bladder is decompressed by a Celaya catheter. 4. Bilateral nephrostomy tubes in place. There is persistent severe dilatation of the left renal collecting system. There is mild dilatation of the right collecting system. Rogerio Phelan MD Chest X-Ray 06/17/17 0000 Signed Impressions: Service Date/Time: Saturday, June 17, 2017 14:11 - CONCLUSION: Some pulmonary vascular congestion with a tortuous aorta. No focal infiltrate. Doc Cotter MD Nephrostomy 06/15/17 0000 Signed Impressions: Service Date/Time: Thursday, June 15, 2017 16:45 - CONCLUSION: Uncomplicated nephrostomy tube placement as above. Alessandro Pope MD Objective Remarks GENERAL: Well-nourished, well-developed patient. SKIN: Warm and dry. HEAD: Normocephalic. EYES: No scleral icterus. No injection or drainage. NECK: Supple, trachea midline. No JVD or lymphadenopathy. CARDIOVASCULAR: Regular rate and rhythm without murmurs, gallops, or rubs. RESPIRATORY: Breath sounds equal bilaterally. No accessory muscle use. GASTROINTESTINAL: Bowel sounds present. Abdomen soft, non-tender, distended. EXTREMITIES: trace pedal edema. NEUROLOGICAL: Awake alert oriented to month, year. mildly confused. Medications and IVs Current Medications Medications (Trade) Dose Ordered Sig/Jerzy Route Start Time Stop Time Status Last Admin (NS Flush) 2 ml UNSCH PRN IV FLUSH 06/12/17 05:00 06/19/17 01:38 (NS Flush) 2 ml BID IV FLUSH 06/12/17 09:00 06/20/17 09:17 (Zofran Inj) 4 mg Q6H PRN IV PUSH 06/12/17 05:00 06/18/17 13:00 (D50w (Vial) Inj) 50 ml UNSCH PRN IV PUSH 06/12/17 05:30 (Glucagon Inj) 1 mg UNSCH PRN OTHER 06/12/17 05:30 (NovoLOG SUPPLEMENTAL SCALE) 1 ACHS SLIDING SCALE SQ 06/12/17 08:00 06/20/17 16:13 (Coreg) 25 mg BID PO 06/12/17 09:00 06/20/17 09:17 (Flomax) 0.4 mg HS PO 06/12/17 21:00 06/19/17 20:15 (Duoneb Neb) 1 ampule Q4HR NEB PRN NEB 06/12/17 05:45 (Catapres) 0.1 mg Q6H PRN PO 06/12/17 06:00 06/17/17 17:50 (Carafate Liq) 1 gm ACHS PO 06/12/17 12:00 06/20/17 16:10 (Xanax) 0.5 mg Q8H PRN PO 06/12/17 12:00 06/20/17 12:14 (Protonix) 40 mg BID PO 06/13/17 21:00 06/20/17 09:16 Sodium Bicarbonate 75 meq/Sodium Chloride 1,075 ml @ 100 mls/hr [id number] IV 06/15/17 07:00 06/20/17 16:10 (Tylenol) 500 mg Q4H PRN PO 06/16/17 09:45 06/20/17 12:15 (Imdur) 120 mg DAILY PO 06/17/17 09:00 06/20/17 09:17 (Pill Splitter) 1 ea UNSCH PRN OTHER 06/17/17 12:00 (Apresoline) 100 mg Q8HR PO 06/18/17 14:00 06/20/17 13:14 (Levemir Inj) 5 units Q12HR SQ 06/18/17 21:00 06/20/17 09:17 (Oscal-D 250-125) 250 mg Q12HR PO 06/18/17 21:00 06/20/17 09:17 Iron Sucrose 200 mg/Sodium Chloride 110 ml @ 110 mls/hr DAILY IV 06/19/17 09:00 06/21/17 09:59 06/20/17 09:00 (Rocaltrol) 0.25 mcg DAILY PO 06/19/17 19:30 06/20/17 09:17 (Casodex) 50 mg DAILY PO 06/20/17 09:00 06/20/17 09:17 (K-Phos Neutral) 250 mg Q6HR PO 06/20/17 12:00 06/20/17 16:11 (Haldol) 1 mg BID PO 06/20/17 12:15 (Haldol Inj) 2 mg Q6H PRN IM 06/20/17 12:15 A/P Problem List: (1) GI bleed ICD Code: K92.2 - Gastrointestinal hemorrhage, unspecified Status: Acute (2) Acute on chronic renal failure ICD Code: N17.9 - Acute kidney failure, unspecified; N18.9 - Chronic kidney disease, unspecified Status: Acute (3) Diabetes mellitus, type 2 ICD Code: E11.9 - Diabetes mellitus, type 2 Status: Chronic (4) Hydronephrosis ICD Code: N13.30 - Unspecified hydronephrosis Status: Acute (5) Anemia due to acute blood loss ICD Code: D62 - Acute posthemorrhagic anemia Status: Acute (6) Hematuria ICD Code: R31.9 - Hematuria, unspecified Status: Acute (7) Fall ICD Code: W19.XXXA - Unspecified fall, initial encounter Status: Acute (8) Prostate cancer metastatic to bone ICD Code: C61 - Malignant neoplasm of prostate; C79.51 - Secondary malignant neoplasm of bone Status: Chronic (9) Chronic systolic CHF (congestive heart failure) ICD Code: I50.22 - Chronic systolic (congestive) heart failure Status: Chronic (10) CAD (coronary artery disease), [place] coronary artery ICD Code: I25.10 - Atherosclerotic heart disease of [place] coronary artery without angina pectoris Status: Chronic (11) Acute metabolic encephalopathy ICD Code: G93.41 - Metabolic encephalopathy Status: Acute (12) Prostate cancer metastatic to multiple sites ICD Code: C61 - Malignant neoplasm of prostate Status: Chronic (13) Ischemic cardiomyopathy ICD Code: I25.5 - Ischemic cardiomyopathy Status: Chronic (14) Duodenal ulcer ICD Code: K26.9 - Duodenal ulcer, unspecified as acute or chronic, without hemorrhage or perforation (15) Hypocalcemia ICD Code: E83.51 - Hypocalcemia Status: Acute (16) ATN (acute tubular necrosis) ICD Code: N17.0 - Acute kidney failure with tubular necrosis Status: Acute Assessment and Plan 1. Severe anemia d/t hematuria, gi bleed s/p EGD 06/13/17 showing duodenal ulcer and gastritis s/p Transfusion total 4 units PRBCs H&H remains stable Continue Protonix GI consulted - input appreciated. Monitor H&H, transfuse when necessary hemoglobin less than 7 or active bleeding 2. Acute renal failure, obstructive due to bladder mass, Status post cystoscopy 06/15 with partial resection of bladder mass presumably metastatic from known prostate cancer, ureteral stents were unable to be placed Status post emergent bilateral nephrostomy tubes 06/15 with interventional radiology. Nephrology and urology consulted, appreciate recommendations AKA likely secondary to obstructive uropathy. Apparently the patient was unable to get stent in the ureter still had the bilateral nephrostomy done on . Nephrology start the patient on normal saline with sodium bicarbonate. 06/20 creatinine is slowly trending down. Continue to monitor BUN/creatinine , avoid nephrotoxins. 3. Pneumonia CXR 06/12 showed bilateral lower lobe infiltrates with consolidation on the left Zithromax Dc'd Continue IV Rocephin - Day 9. Will give total 10 days. DC tomorrow. 4. Metastatic prostate cancer Patient with known prostate ca and accompanying metastatic disease to bone, bladder, lost to follow up 06/19 Appreciate input from oncology -consideration to systemic chemotherapy while inpatient to help palliate obstructive symptoms. Repeat CT of the abdomen and pelvis shows widespread sclerotic bony metastases and persistent severe dilatation of the left renal collecting system. Patient is sp nephrostomy tube exchange. 5. Known chronic systolic CHF, ischemic cardiomyopathy with EF 15% in 2007, s/p stent to LAD at that time by Dr. Scott 2-D echo 06/16 with LVEF of 30-35%, mildly dilated left ventricle, mild tricuspid and mitral valve regurgitation Cardiology following EKG with possible lateral ischemic changes On isosorbide mononitrate, coreg no asa due to bleeding no acei due to ARF 6. Hypertension monitor BP trends and adjust medications as needed BP stable Continue current BP meds - on hydralazine 100 mg by mouth every 8 hours. Labetalol 25 minutes by mouth twice a day. 7. CAD/Elevated troponin s/p LAD stent in 2007 Troponin 0.07, suspect secondary to renal failure Acs ruled out Cardiology consulted, patient seen by Dr Bradshaw - conservative care 8. Acute metabolic/uremic encephalopathy - improving Reorient sitter DCed opioids, tylenol for pain 9. T2DM Continue with sliding scale insulin and Accu-Cheks. Blood glucose in the 100 -200 trend. 06/19 Blood sugars more stable. Continue insulin Levemir 5 units SQ Q12 hrs. 06/20 blood sugars with improved control however still elevated in the 180s. I will increase Levemir to 10 units subcutaneous every 12 hours. 10. Hypocalcemia and hyperphosphatemia Started on calcium acetate per nephrology/Dr. Allen monitor BMP 06/20 Calcium still low, will order Calcium chloride IV Patient had been confused over the past several days. Psychiatry has been consulted. I discussed the case with Dr. Rosa who states the patient is not stated at the moment to make any medical decisions. The patient IV started on Haldol. Marifer sitter at bedside since patient has been agitated and has a potential for aggressive behavior. Discussed the case with and I will transfer him palliative care. Legally the patient's 2 daughters have the health group by proxy at this time that the patient is unable to make his own medical decisions. The patient is not allowed to sign out AGAINST MEDICAL ADVICE. DVT prophylaxis: Chemical anti-prophylactic contraindicated secondary to GI bleed as well as hematuria.. Bilateral SCDs Discharge Planning Continue to monitor in the oncology floor. Discharge pending kidney function improvement as well as oncology and nephrology clearance. Problem Qualifiers (1) GI bleed: Qualified Codes: K92.2 - Gastrointestinal hemorrhage, unspecified Berhane Cain MD Jun 20, 2017 18:14
[2017-06-20] MEDS: TAMSULOSIN HCL 0.4 MG CAP PO SCH (20:26)
[2017-06-21] VITALS (11 sets, daily range): BP systolic 127–177; BP diastolic 69–95; PULSE 75–126; RESP 14–18; TEMP 98.8–99.5; O2SAT 95–99
[2017-06-21] MEDS: SODIUM BICARBONATE 8.4% INJ 75 MEQ in SODIUM CHLOR 0.45% 1000 ML INJ 1,000 ML IV SCH ×2 (03:03→13:30)
[2017-06-21] MEDS: ALPRAZolam 0.5 MG TAB PO PRN ×2 (04:07→16:22)
[2017-06-21] MEDS: hydrALAZINE HCL 50 MG TAB PO SCH ×3 (04:07→20:33)
[2017-06-21] MEDS: POTASSIUM PHOSPHATE/SODIUM PHOSPHATE 250 MG TAB PO SCH ×4 (04:13→22:31)
[2017-06-21] MEDS: CALCITRIOL 0.25 MCG CAP PO SCH (09:17)
[2017-06-21] MEDS: ISOSORBIDE MONONITRATE 60 MG TAB PO SCH (09:18)
[2017-06-21] MEDS: SUCRALFATE 1 GM/10 ML CUP PO SCH ×4 (09:18→20:32)
[2017-06-21] MEDS: PANTOPRAZOLE SOD 40 MG DELAYED RELEASE TAB PO SCH ×2 (09:18→20:32)
[2017-06-21] MEDS: HALOPERIDOL 1 MG TAB PO SCH ×2 (09:19→20:33)
[2017-06-21] MEDS: INSULIN DETEMIR 100 UNITS/ML VIAL SQ SCH ×2 (09:19→20:31)
[2017-06-21] MEDS: CALCIUM/VITAMIN D 250 MG/125 U TAB PO SCH ×2 (09:19→20:32)
[2017-06-21] MEDS: SODIUM CHLORIDE 0.9% FLUSH 10 ML FLUSH IV FLUSH SCH ×2 (09:20→20:33)
[2017-06-21] MEDS: BICALUTAMIDE 50 MG TAB PO SCH (09:20)
[2017-06-21] MEDS: IRON SUCROSE INJ 200 MG in SODIUM CHLORIDE 0.9% INJ 100 ML IV SCH (09:33)
[2017-06-21] MEDS: INSULIN ASPART SUPPLEMENTAL SCALE SQ SCH ×4 (09:34→20:38)
--- NOTE | 2017-06-21 12:11 | PD.ONC.PN ---
Subjective Subjective Remarks spoke with patient's over the phone who is out of state. She wants to hold off on giving any chemotherapy treatment to the patient until she arrives explained to her that the patient is not competent to make any decisions at this time continue supportive care Objective Data Date Time Temp Pulse Resp B/P (MAP) Pulse Ox O2 Delivery O2 Flow Rate FiO2 06/21/17 09:14 99.5 81 14 138/69 (92) 97 06/21/17 04:02 99.1 81 18 177/83 (114) 99 06/21/17 04:01 80 06/21/17 00:06 80 06/20/17 22:51 98.0 82 20 177/94 (121) 98 06/20/17 21:35 16 06/20/17 21:31 21 06/20/17 20:46 90 06/20/17 20:30 Room Air 06/20/17 20:29 98.8 84 20 155/74 (101) 95 06/20/17 15:58 99.2 74 18 114/57 (76) 95 06/21/17 06/21/17 06/21/17 07:00 15:00 23:00 Intake Total 720 ml Output Total 3750 ml Balance -3030 ml Result Diagram: 06/20/17 0801 06/20/17 0801 Administered Medications Medications (Trade) Dose Ordered Sig/Jerzy Route PRN Reason Start Time Stop Time Status Last Admin Dose Admin Sodium Chloride (NS Flush) 2 ml UNSCH PRN IV FLUSH FLUSH AFTER USING IV ACCESS 06/12/17 05:00 06/19/17 01:38 Sodium Chloride (NS Flush) 2 ml BID IV FLUSH 06/12/17 09:00 06/21/17 09:20 Ondansetron HCl (Zofran Inj) 4 mg Q6H PRN IV PUSH NAUSEA OR VOMITING 06/12/17 05:00 06/18/17 13:00 Insulin Aspart (NovoLOG SUPPLEMENTAL SCALE) 1 ACHS SLIDING SCALE SQ 06/12/17 08:00 06/21/17 09:34 Tamsulosin HCl (Flomax) 0.4 mg HS PO 06/12/17 21:00 06/20/17 20:26 Clonidine (Catapres) 0.1 mg Q6H PRN PO SBP>180, DBP>100 06/12/17 06:00 12/17/17 17:50 Sucralfate (Carafate Liq) 1 gm ACHS PO 06/12/17 12:00 06/21/17 09:18 Alprazolam (Xanax) 0.5 mg Q8H PRN PO anxiety 06/12/17 12:00 06/21/17 04:07 Pantoprazole Sodium (Protonix) 40 mg BID PO 06/13/17 21:00 06/21/17 09:18 Sodium Bicarbonate 75 meq/Sodium Chloride 1,075 ml @ 100 mls/hr [id number] IV 06/15/17 07:00 06/21/17 03:03 Acetaminophen (Tylenol) 500 mg Q4H PRN PO musculoskeletal pain 06/16/17 09:45 06/20/17 20:35 Isosorbide Mononitrate (Imdur) 120 mg DAILY PO 06/17/17 09:00 06/21/17 09:18 Hydralazine HCl (Apresoline) 100 mg Q8HR PO 06/18/17 14:00 06/21/17 04:07 Insulin Detemir (Levemir Inj) 5 units Q12HR SQ 06/18/17 21:00 06/21/17 09:19 Calcium/Vitamin D (Oscal-D 250-125) 250 mg Q12HR PO 06/18/17 21:00 06/21/17 09:19 Calcitriol (Rocaltrol) 0.25 mcg DAILY PO 06/19/17 19:30 06/21/17 09:17 Bicalutamide (Casodex) 50 mg DAILY PO 06/20/17 09:00 06/21/17 09:20 Potassium Phos/ Sodium Phos (K-Phos Neutral) 250 mg Q6HR PO 06/20/17 12:00 06/21/17 04:13 Haloperidol (Haldol) 1 mg BID PO 06/20/17 12:15 06/21/17 09:19 Objective Remarks GENERAL: Well-nourished, well-developed patient. SKIN: Warm and dry. HEAD: Normocephalic. EYES: No scleral icterus. No injection or drainage. NECK: Supple, trachea midline. No JVD or lymphadenopathy. LYMPHATIC: No adenopathy. CARDIOVASCULAR: Regular rate and rhythm without murmurs. RESPIRATORY: Breath sounds equal bilaterally. No accessory muscle use. GASTROINTESTINAL: Abdomen soft, non-tender, nondistended. EXTREMITIES: No cyanosis, or edema. MUSCULOSKELETAL: Adequate muscle tone. NEUROLOGICAL: No obvious focal deficit. Awake, alert, and oriented x3. PSYCHIATRIC: Appropriate mood and affect; insight and judgment normal. Assessment/Plan Problem List: (1) Prostate cancer metastatic to bone ICD Codes: C61 - Malignant neoplasm of prostate; C79.51 - Secondary malignant neoplasm of bone Status: Chronic Plan: --may be reasonable to give systemic therapy to palliate obstructive symptoms--Prostate cancer is generally responsive to androgen blockade therapy and addition of systemic therapy would be beneficial in this case. --Will consider giving 1st dose of Docetaxel 75mg /m2 while in-patient Treatment History: July 2016-- Yesenia score of 4 + 4 = 8. tumor involved the prostate bilaterally and extended into the periprosthetic adipose tissue. was initiated on hormone blockade therapy with Lupron injections. --Recently--> developed progressive disease with lymphadenopathy in his right groin. CT scans of the pelvis confirmed the retroperitoneal adenopathy in the left iliac chain. +prominent lymphadenopathy in the pelvic sidewalls. + diffuse bone mets. +incomplete fracture in the left acetabulum and inferior pubic rami and fractures in the right superior inferior pubic rami+bladder wall thickening with a 2.3-cm mass. --bone scan --> widespread osseous metastatic disease involving the thoracic and lumbar spine+ sacral ala bilaterally and right intertrochanteric region. Mets in the proximal humerus and ribs. (2) Severe anemia ICD Codes: D64.9 - Anemia, unspecified Plan: --appears to be secondary to his hematuria. --no evidence of hemolysis. --s/p EGD (3) Hydronephrosis ICD Codes: N13.30 - Unspecified hydronephrosis Status: Acute Plan: --s/p nephrostomy tube placement on 06/17 --Bilateral hydronephrosis with obstruction due to malignancy, bladder mass and gross hematuria. --attempted ureteral stent placement on 06/15 was unsuccessful due tumor burden. --s/p biopsy of bladder mass, awaiting pathology. (4) Acute kidney failure ICD Codes: N17.9 - Acute kidney failure, unspecified Status: Acute Plan: --improved 06/18 after nephrostomy tube placement on 06/17 --due to urinary obstruction and hydronephrosis. Assessment 57y/o male with a history of stage IV prostate cancer admitted with urinary obstruction, hematuria and severe anemia. 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 s/p right-sided orchiectomy. did not receive any adjuvant chemotherapy or radiation treatments. Diabetes type 2 History of coronary stents in 2006. Plan 1. Await pt's functional capacity eval from the psychiatrist 2. Will consider giving inpatient chemotherapy depending on consent. 3. Continue to monitor output from Celaya, nephrostomy tubes. Discussed with Dr Rosa- he is planning to call the pt's family members before making his recommendation. Problem Qualifiers (1) Acute kidney failure: Qualified Codes: N17.9 - Acute kidney failure, unspecified Gonzalez Mosley MD Jun 21, 2017 12:11
--- NOTE | 2017-06-21 12:25 | HHI.NPPN ---
Subjective History of Present Illness 7-year-old male with past medical history of adenocarcinoma of the prostate with metastasis, hypertension, diabetes mellitus, ischemic heart disease, chronic kidney disease who was admitted with complaint of nausea, vomiting and abdominal pain. I was called to see the patient because of very high BUN and creatinine. The patient has a history of chronic kidney disease. His creatinine has been around 1.8 to 1.6. Additional Remarks Patient is more alert, now fully oriented, want to go home, not in distress, clinically same. Review of Systems General General Remarks Unable to give much review of system. Objective Data Data Vital Signs Date Time Temp Pulse Resp B/P (MAP) Pulse Ox O2 Delivery O2 Flow Rate FiO2 06/21/17 09:14 99.5 81 14 138/69 (92) 97 06/21/17 04:02 99.1 81 18 177/83 (114) 99 06/21/17 04:01 80 06/21/17 00:06 80 06/20/17 22:51 98.0 82 20 177/94 (121) 98 06/20/17 21:35 16 06/20/17 21:31 21 06/20/17 20:46 90 06/20/17 20:30 Room Air 06/20/17 20:29 98.8 84 20 155/74 (101) 95 06/20/17 15:58 99.2 74 18 114/57 (76) 95 -: 06/20/17 0801 06/20/17 0801 Physical Exam General Appearance: No Acute Distress, Comfortable Eyes Eye Exam: Pupils Equal Neck Neck Exam: Neck Supple, Trachea Midline Pulmonary Resp Exam: Breath Sounds Equal, No Distress, Rhonchi Cardiology CV Exam: Regular, Normal Sinus Rhythm Gastrointestinal/Abdomen GI Exam: Soft, Non-Tender, Bowel Sounds Present Extremeties Extremities Exam: Trace Edema Neurologic Neuro Exam: Alert, Awake Assessment/Plan Assessment Summary: MIRYAM/Acute Renal Failure, Hypertension Electrolyte Assessment: Metabolic Acidosis Problem List: (1) Benign essential hypertension Status: Chronic (2) CAD (coronary artery disease) ICD Codes: I25.10 - Atherosclerotic heart disease of [place] coronary artery without angina pectoris Status: Chronic (3) History of CHF (congestive heart failure) ICD Codes: Z86.79 - Personal history of other diseases of the circulatory system Status: Chronic (4) Diabetes mellitus, type 2 ICD Codes: E11.9 - Diabetes mellitus, type 2 Status: Chronic (5) Prostate CA ICD Codes: C61 - Malignant neoplasm of prostate (6) Hematuria ICD Codes: R31.9 - Hematuria, unspecified Status: Acute (7) Acute on chronic renal failure ICD Codes: N17.9 - Acute kidney failure, unspecified; N18.9 - Chronic kidney disease, unspecified Status: Acute Plan Patient has chronic kidney disease and develop MIRYAM. Most likely due to obstructive uropathy. Had Cystoscopy done. Has bladder tumor removed. Unable to get stent in the ureter. Had bilateral Nephrostomy done on 06/15. BUN and Creatinine continue to improve. K is now normal. Po4 is now normalized. Calcium, Po4 and Mg are low, on Oscal and, also on Rocaltrol. Follow BMP. Problem Qualifiers (1) CAD (coronary artery disease): Qualified Codes: I25.10 - Atherosclerotic heart disease of [place] coronary artery without angina pectoris Raquel Allen MD Jun 21, 2017 12:25
--- NOTE | 2017-06-21 14:12 | HHI.PR ---
Subjective Remarks BP noted to be elevated in the 170's Patient wants to sign himself out. Patient's mother is at bedside and demanding that we let his son go. Denies cp/sob. Denies nausea or vomiting. Afebrile. Objective Vitals Vital Signs Date Time Temp Pulse Resp B/P (MAP) Pulse Ox O2 Delivery O2 Flow Rate FiO2 06/21/17 12:39 99.1 76 16 165/89 (114) 95 06/21/17 09:14 99.5 81 14 138/69 (92) 97 06/21/17 08:00 Room Air 06/21/17 04:02 99.1 81 18 177/83 (114) 99 06/21/17 04:01 80 06/21/17 00:06 80 06/20/17 22:51 98.0 82 20 177/94 (121) 98 06/20/17 21:35 16 06/20/17 21:31 21 06/20/17 20:46 90 06/20/17 20:30 Room Air 06/20/17 20:29 98.8 84 20 155/74 (101) 95 06/20/17 15:58 99.2 74 18 114/57 (76) 95 I/O 06/20/17 06/20/17 06/20/17 06/21/17 06/21/17 06/21/17 07:00 15:00 23:00 07:00 15:00 23:00 Intake Total 480 ml 640 ml 600 ml 720 ml Output Total 1950 ml 900 ml 2725 ml 3750 ml Balance -1470 ml -260 ml -2125 ml -3030 ml Intake Oral 480 ml 440 ml 600 ml 720 ml IV Total 200 ml Output Urine Total 100 ml Drainage Total 1850 ml 900 ml 2725 ml 3750 ml Result Diagram: 06/20/17 0801 06/20/17 0801 Imaging Last Impressions Nephrostomy Tube Change 06/19/17 1037 Signed Impressions: Service Date/Time: Monday, June 19, 2017 14:25 - CONCLUSION: Uncomplicated nephrostomy tube exchange as above. Werner Lawrence Jr., MD Abdomen/Pelvis CT 06/19/17 0000 Signed Impressions: Service Date/Time: Monday, June 19, 2017 00:22 - CONCLUSION: 1. Widespread sclerotic bony metastases. 2. Retroperitoneal, lateral pelvic, and inguinal adenopathy. 3. Suspected diffuse bladder wall thickening. The bladder is decompressed by a Celaya catheter. 4. Bilateral nephrostomy tubes in place. There is persistent severe dilatation of the left renal collecting system. There is mild dilatation of the right collecting system. Rogerio Phelan MD Chest X-Ray 06/17/17 0000 Signed Impressions: Service Date/Time: Saturday, June 17, 2017 14:11 - CONCLUSION: Some pulmonary vascular congestion with a tortuous aorta. No focal infiltrate. Doc Cotter MD Nephrostomy 06/15/17 0000 Signed Impressions: Service Date/Time: Thursday, June 15, 2017 16:45 - CONCLUSION: Uncomplicated nephrostomy tube placement as above. Alessandro Pope MD Objective Remarks GENERAL: Well-nourished, well-developed patient. SKIN: Warm and dry. HEAD: Normocephalic. EYES: No scleral icterus. No injection or drainage. NECK: Supple, trachea midline. No JVD or lymphadenopathy. CARDIOVASCULAR: Regular rate and rhythm without murmurs, gallops, or rubs. RESPIRATORY: Breath sounds equal bilaterally. No accessory muscle use. GASTROINTESTINAL: Bowel sounds present. Abdomen soft, non-tender, distended. EXTREMITIES: trace pedal edema. NEUROLOGICAL: Awake alert oriented to month, year. mildly confused. Medications and IVs Current Medications Medications (Trade) Dose Ordered Sig/Jerzy Route Start Time Stop Time Status Last Admin (NS Flush) 2 ml UNSCH PRN IV FLUSH 06/12/17 05:00 06/19/17 01:38 (NS Flush) 2 ml BID IV FLUSH 06/12/17 09:00 06/21/17 09:20 (Zofran Inj) 4 mg Q6H PRN IV PUSH 06/12/17 05:00 06/18/17 13:00 (D50w (Vial) Inj) 50 ml UNSCH PRN IV PUSH 06/12/17 05:30 (Glucagon Inj) 1 mg UNSCH PRN OTHER 06/12/17 05:30 (NovoLOG SUPPLEMENTAL SCALE) 1 ACHS SLIDING SCALE SQ 06/12/17 08:00 06/21/17 09:34 (Flomax) 0.4 mg HS PO 06/12/17 21:00 06/20/17 20:26 (Duoneb Neb) 1 ampule Q4HR NEB PRN NEB 06/12/17 05:45 (Catapres) 0.1 mg Q6H PRN PO 06/12/17 06:00 06/17/17 17:50 (Carafate Liq) 1 gm ACHS PO 06/12/17 12:00 06/21/17 09:18 (Xanax) 0.5 mg Q8H PRN PO 06/12/17 12:00 06/21/17 04:07 (Protonix) 40 mg BID PO 06/13/17 21:00 06/21/17 09:18 Sodium Bicarbonate 75 meq/Sodium Chloride 1,075 ml @ 100 mls/hr [id number] IV 06/15/17 07:00 06/21/17 03:03 (Tylenol) 500 mg Q4H PRN PO 06/16/17 09:45 06/20/17 20:35 (Imdur) 120 mg DAILY PO 06/17/17 09:00 06/21/17 09:18 (Pill Splitter) 1 ea UNSCH PRN OTHER 06/17/17 12:00 (Apresoline) 100 mg Q8HR PO 06/18/17 14:00 06/21/17 04:07 (Levemir Inj) 5 units Q12HR SQ 06/18/17 21:00 06/21/17 09:19 (Oscal-D 250-125) 250 mg Q12HR PO 06/18/17 21:00 06/21/17 09:19 (Rocaltrol) 0.25 mcg DAILY PO 06/19/17 19:30 06/21/17 09:17 (Casodex) 50 mg DAILY PO 06/20/17 09:00 06/21/17 09:20 (K-Phos Neutral) 250 mg Q6HR PO 06/20/17 12:00 06/21/17 04:13 (Haldol) 1 mg BID PO 06/20/17 12:15 06/21/17 09:19 (Haldol Inj) 2 mg Q6H PRN IM 06/20/17 12:15 (Coreg) 50 mg BID PO 06/21/17 21:00 A/P Problem List: (1) GI bleed ICD Code: K92.2 - Gastrointestinal hemorrhage, unspecified Status: Acute (2) Acute on chronic renal failure ICD Code: N17.9 - Acute kidney failure, unspecified; N18.9 - Chronic kidney disease, unspecified Status: Acute (3) Diabetes mellitus, type 2 ICD Code: E11.9 - Diabetes mellitus, type 2 Status: Chronic (4) Hydronephrosis ICD Code: N13.30 - Unspecified hydronephrosis Status: Acute (5) Anemia due to acute blood loss ICD Code: D62 - Acute posthemorrhagic anemia Status: Acute (6) Hematuria ICD Code: R31.9 - Hematuria, unspecified Status: Acute (7) Fall ICD Code: W19.XXXA - Unspecified fall, initial encounter Status: Acute (8) Prostate cancer metastatic to bone ICD Code: C61 - Malignant neoplasm of prostate; C79.51 - Secondary malignant neoplasm of bone Status: Chronic (9) Chronic systolic CHF (congestive heart failure) ICD Code: I50.22 - Chronic systolic (congestive) heart failure Status: Chronic (10) CAD (coronary artery disease), [place] coronary artery ICD Code: I25.10 - Atherosclerotic heart disease of [place] coronary artery without angina pectoris Status: Chronic (11) Acute metabolic encephalopathy ICD Code: G93.41 - Metabolic encephalopathy Status: Acute (12) Prostate cancer metastatic to multiple sites ICD Code: C61 - Malignant neoplasm of prostate Status: Chronic (13) Ischemic cardiomyopathy ICD Code: I25.5 - Ischemic cardiomyopathy Status: Chronic (14) Duodenal ulcer ICD Code: K26.9 - Duodenal ulcer, unspecified as acute or chronic, without hemorrhage or perforation (15) Hypocalcemia ICD Code: E83.51 - Hypocalcemia Status: Acute (16) ATN (acute tubular necrosis) ICD Code: N17.0 - Acute kidney failure with tubular necrosis Status: Acute Assessment and Plan 1. Severe anemia d/t hematuria, gi bleed s/p EGD 06/13/17 showing duodenal ulcer and gastritis s/p Transfusion total 4 units PRBCs H&H remains stable Continue Protonix GI consulted - input appreciated. Monitor H&H, transfuse when necessary hemoglobin less than 7 or active bleeding 2. Acute renal failure, obstructive due to bladder mass, Status post cystoscopy 06/15 with partial resection of bladder mass presumably metastatic from known prostate cancer, ureteral stents were unable to be placed Status post emergent bilateral nephrostomy tubes 06/15 with interventional radiology. Nephrology and urology consulted, appreciate recommendations AKA likely secondary to obstructive uropathy. Apparently the patient was unable to get stent in the ureter still had the bilateral nephrostomy done on . Nephrology start the patient on normal saline with sodium bicarbonate. Creatinine is slowly trending down. Continue to monitor BUN/creatinine, avoid nephrotoxins. Labs ordered today. 3. Pneumonia CXR 06/12 showed bilateral lower lobe infiltrates with consolidation on the left Zithromax Dc'd Patient completed total 7 days of IV Rocephin. 4. Metastatic prostate cancer Patient with known prostate ca and accompanying metastatic disease to bone, bladder, lost to follow up 06/19 Appreciate input from oncology -consideration to systemic chemotherapy while inpatient to help palliate obstructive symptoms. Repeat CT of the abdomen and pelvis shows widespread sclerotic bony metastases and persistent severe dilatation of the left renal collecting system. Patient is sp nephrostomy tube exchange. 5. Known chronic systolic CHF, ischemic cardiomyopathy with EF 15% in 2007, s/p stent to LAD at that time by Dr. Scott 2-D echo 06/16 with LVEF of 30-35%, mildly dilated left ventricle, mild tricuspid and mitral valve regurgitation Cardiology following EKG with possible lateral ischemic changes On isosorbide mononitrate, coreg no asa due to bleeding no acei due to ARF 6. Hypertension monitor BP trends and adjust medications as needed Continue current BP meds - on hydralazine 100 mg by mouth every 8 hours. Labetalol 25 minutes by mouth twice a day. 06/21 BP seems to be elevated with a systolic blood pressure noted 170s. I will increase the dose of carvedilol to 50 minutes by mouth twice a day. 7. CAD/Elevated troponin s/p LAD stent in 2007 Troponin 0.07, suspect secondary to renal failure Acs ruled out Cardiology consulted, patient seen by Dr Bradshaw - conservative care 8. Acute metabolic/uremic encephalopathy - improving Reorient sitter DCed opioids, tylenol for pain 9. T2DM Continue with sliding scale insulin and Accu-Cheks. Blood glucose in the 100 -200 trend. 06/19 Blood sugars more stable. Continue insulin Levemir 5 units SQ Q12 hrs. 06/20 blood sugars with improved control however still elevated in the 180s. I will increase Levemir to 10 units subcutaneous every 12 hours. 10. Hypocalcemia and hyperphosphatemia Started on calcium acetate per nephrology/Dr. Allen monitor BMP 06/20 Calcium still low, will order Calcium chloride IV. 06/21 BMP ordered and pending. 11/ Delirium Patient had been confused over the past several days. Psychiatry has been consulted. I discussed the case with Dr. Rosa who states the patient is not stated at the moment to make any medical decisions. The patient IV started on Haldol. Marifer sitter at bedside since patient has been agitated and has a potential for aggressive behavior. Discussed the case with and I will transfer him palliative care. Legally the patient's 2 daughters are the healthby proxy at this time that the patient is unable to make his own medical decisions. The patient is not allowed to sign out AGAINST MEDICAL ADVICE. DVT prophylaxis: Chemical anti-prophylactic contraindicated secondary to GI bleed as well as hematuria.. Bilateral SCDs Discharge Planning Continue to monitor in the oncology floor. Discharge pending kidney function improvement as well as oncology and nephrology clearance. Problem Qualifiers (1) GI bleed: Qualified Codes: K92.2 - Gastrointestinal hemorrhage, unspecified Berhane Cain MD Jun 21, 2017 14:12
[2017-06-21 15:18] LABS: BICARBONATE 26.7 MEQ/L (21.0-32.0); MAGNESIUM 1.4 MG/DL (1.5-2.5); POTASSIUM 3.2 MEQ/L (3.5-5.1)
[2017-06-21] MEDS: ACETAMINOPHEN 500 MG CPLT PO PRN ×2 (16:22→20:32)
[2017-06-21] MEDS: CARVEDILOL 12.5 MG TAB PO SCH (20:32)
[2017-06-21] MEDS: TAMSULOSIN HCL 0.4 MG CAP PO SCH (20:32)
[2017-06-21] MEDS ORDERED: ZOLPIDEM TARTRATE 5 MG TAB PO PRN (22:15)
[2017-06-21] MEDS: DOCUSATE SODIUM 50 MG/SENNA 8.6 MG TAB PO SCH (22:30)
[2017-06-22] VITALS (9 sets, daily range): BP systolic 148–162; BP diastolic 79–87; PULSE 69–82; RESP 16–18; TEMP 99–99.1; O2SAT 91–97
[2017-06-22] MEDS: SODIUM BICARBONATE 8.4% INJ 75 MEQ in SODIUM CHLOR 0.45% 1000 ML INJ 1,000 ML IV SCH ×3 (00:15→21:45)
[2017-06-22] MEDS: ALPRAZolam 0.5 MG TAB PO PRN ×3 (00:15→17:13)
[2017-06-22] MEDS: POTASSIUM PHOSPHATE/SODIUM PHOSPHATE 250 MG TAB PO SCH ×3 (04:48→17:13)
[2017-06-22] MEDS: hydrALAZINE HCL 50 MG TAB PO SCH ×3 (04:48→22:05)
[2017-06-22] MEDS: ACETAMINOPHEN 500 MG CPLT PO PRN (04:54)
[2017-06-22] MEDS: INSULIN ASPART SUPPLEMENTAL SCALE SQ SCH ×4 (08:00→22:07)
[2017-06-22 08:49] LABS: BICARBONATE 27.5 MEQ/L (21.0-32.0)
[2017-06-22] MEDS: SODIUM CHLORIDE 0.9% FLUSH 10 ML FLUSH IV FLUSH SCH ×2 (09:00→22:04)
[2017-06-22 09:10] LABS: CALCIUM-PROTEIN CORRECTED 6.7 MG/DL (8.5-10.1)
[2017-06-22] MEDS: SUCRALFATE 1 GM/10 ML CUP PO SCH ×4 (09:35→21:00)
[2017-06-22] MEDS: CARVEDILOL 12.5 MG TAB PO SCH ×2 (09:36→22:05)
[2017-06-22] MEDS: CALCITRIOL 0.25 MCG CAP PO SCH (09:36)
[2017-06-22] MEDS: DOCUSATE SODIUM 50 MG/SENNA 8.6 MG TAB PO SCH ×2 (09:36→21:00)
[2017-06-22] MEDS: ISOSORBIDE MONONITRATE 60 MG TAB PO SCH (09:37)
[2017-06-22] MEDS: HALOPERIDOL 1 MG TAB PO SCH ×2 (09:37→22:05)
[2017-06-22] MEDS: BICALUTAMIDE 50 MG TAB PO SCH (09:37)
[2017-06-22] MEDS: CALCIUM/VITAMIN D 250 MG/125 U TAB PO SCH ×2 (09:37→22:05)
[2017-06-22] MEDS: PANTOPRAZOLE SOD 40 MG DELAYED RELEASE TAB PO SCH ×2 (09:37→22:05)
[2017-06-22] MEDS: INSULIN DETEMIR 100 UNITS/ML VIAL SQ SCH ×2 (09:42→22:06)
[2017-06-22] MEDS ORDERED: CALCIUM CHLORIDE INJ 2 GM in SODIUM CHLORIDE 0.9% INJ 100 ML IV ONE (10:00)
--- NOTE | 2017-06-22 12:10 | HHI.NPPN ---
Subjective History of Present Illness 7-year-old male with past medical history of adenocarcinoma of the prostate with metastasis, hypertension, diabetes mellitus, ischemic heart disease, chronic kidney disease who was admitted with complaint of nausea, vomiting and abdominal pain. I was called to see the patient because of very high BUN and creatinine. The patient has a history of chronic kidney disease. His creatinine has been around 1.8 to 1.6. Additional Remarks Patient is more alert, now fully oriented, not in distress, feeling better. Review of Systems General General Remarks Unable to give much review of system. Objective Data Data Vital Signs Date Time Temp Pulse Resp B/P (MAP) Pulse Ox O2 Delivery O2 Flow Rate FiO2 06/22/17 05:54 16 06/22/17 04:43 99.1 72 18 162/87 (112) 95 06/22/17 04:08 76 06/22/17 02:41 95 06/22/17 00:11 76 06/21/17 23:20 99.0 75 168/90 (116) 95 06/21/17 20:25 98.8 83 18 127/69 (88) 96 06/21/17 20:25 Room Air 06/21/17 20:15 80 06/21/17 16:26 99.0 79 14 176/95 (122) 96 06/21/17 12:39 99.1 76 16 165/89 (114) 95 -: 06/20/17 0801 06/22/17 0709 Physical Exam General Appearance: No Acute Distress, Comfortable Eyes Eye Exam: Pupils Equal Neck Neck Exam: Neck Supple, Trachea Midline Pulmonary Resp Exam: Breath Sounds Equal, No Distress, Rhonchi Cardiology CV Exam: Regular, Normal Sinus Rhythm Gastrointestinal/Abdomen GI Exam: Soft, Non-Tender, Bowel Sounds Present Extremeties Extremities Exam: Trace Edema Neurologic Neuro Exam: Alert, Awake, Oriented Psychiatric Psych Exam: Appropriate Responses Assessment/Plan Assessment Summary: MIRYAM/Acute Renal Failure, Hypertension Electrolyte Assessment: Metabolic Acidosis Problem List: (1) Benign essential hypertension Status: Chronic (2) CAD (coronary artery disease) ICD Codes: I25.10 - Atherosclerotic heart disease of [place] coronary artery without angina pectoris Status: Chronic (3) History of CHF (congestive heart failure) ICD Codes: Z86.79 - Personal history of other diseases of the circulatory system Status: Chronic (4) Diabetes mellitus, type 2 ICD Codes: E11.9 - Diabetes mellitus, type 2 Status: Chronic (5) Prostate CA ICD Codes: C61 - Malignant neoplasm of prostate (6) Hematuria ICD Codes: R31.9 - Hematuria, unspecified Status: Acute (7) Acute on chronic renal failure ICD Codes: N17.9 - Acute kidney failure, unspecified; N18.9 - Chronic kidney disease, unspecified Status: Acute Plan Patient has chronic kidney disease and develop MIRYAM. Most likely due to obstructive uropathy. Had Cystoscopy done. Has bladder tumor removed. Unable to get stent in the ureter. Had bilateral Nephrostomy done on 06/15. BUN and Creatinine continue to improve. K is now normal. Po4 is now normalized. Calcium, Po4 and Mg are low, on Oscal and, also on Rocaltrol. On PO Po4 and now also getting IV Calcium Gluconate. Problem Qualifiers (1) CAD (coronary artery disease): Qualified Codes: I25.10 - Atherosclerotic heart disease of [place] coronary artery without angina pectoris Raquel Allen MD Jun 22, 2017 12:10
[2017-06-22 13:51] LABS: AUTOMATED NEUTROPHIL # 5.8 TH/MM3 (1.8-7.7); BASOPHIL # 0.1 TH/MM3 (0-0.2); BASOPHIL % 0.7 % (0.0-2.0); EOSINOPHIL # 0.2 TH/MM3 (0-0.4); EOSINOPHIL % 2.6 % (0.0-4.0); HEMATOCRIT 33.9 % (39.0-51.0); LYMPH % 12.2 % (9.0-44.0); MEAN CELL VOLUME 80.3 FL (80.0-100.0); MEAN CORPUSCULAR HEMOGLOBIN 25.3 PG (27.0-34.0); MEAN CORPUSCULAR HGB CONC 31.5 % (32.0-36.0); MONO % 10.5 % (0.0-8.0); PLATELET COUNT 221 TH/MM3 (150-450); RED BLOOD COUNT 4.22 MIL/MM3 (4.50-5.90); RED CELL DISTRIBUTION WIDTH 22.7 % (11.6-17.2); WHITE BLOOD COUNT 7.9 TH/MM3 (4.0-11.0)
[2017-06-22 13:52] LABS: HEMO FLAGS AUTO DIFF
--- NOTE | 2017-06-22 15:06 | HHI.HCPN ---
Reason for visit a. To assist with evaluation and management of symptoms including: Restlessness, debility. b. To assist medical decision maker(s) with: better understanding of current medical conditions; weighing benefits/burdens of medical treatment options; making medical treatment decisions. . Subjective/Interval History Palliative care follow-up for further clarifications of goals of care. Patient seen in his room, resting in bed in no acute distress. Patient alert to self, place and situation. Following commands. Appears more appropriate than prior visit. Denies pain or discomfort this time. Patient's mother at bedside. Intermittent periods of restlessness/agitation requiring sitter at bedside. Patient afebrile, stable hemodynamically. Currently tolerating room air, oxygen saturation in the mid 90s. Laboratory workup today revealing WBC 7.9, Hgb stable at 10.7, platelet count 221. Renal function continues to improve, BUN/creatinine 28/1.98, nephrology following. Bladder biopsy revealing invasive high-grade urothelial carcinoma. Oncology, Dr. Mosley following. Patient being considered for systemic hemotherapy. This was presented to patient's daughter Afshan, reviewed with oncology BRIAR CUTTER Yuliet Armstrong on 06/21/17. Telephone conversation with patient's daughter Afshan and ex- Erna Bravo. Family reports that they are not to wishing to proceed with palliative chemotherapy at this time given patient's long history of medication noncompliance/treatment adherence. Family inquiring re hospice. Patient verbalize that he had spoken with his daughter Afshan and ex- Erna, patient asking regarding hospice services. Family's goal is to get patient home over the weekend with hospice services for support. Family requesting hospice referral, referral made. Case discussed with Dr. Britt and DAVID Amaya. . Family/friend interactions See interval note. . Advance Directives Living Will: Completed, but not made available Health Care Surrogate: Completed, but not made available Advance Directive Specifics Health Care Surrogate(s): Advance directives reported as completed. Patient's ex- Erna Bravo presented herself as healthcare surrogate decision maker. Pending copy of advance directives. In the absence of AD and as per [place] statute, healthcare proxy decision-making would fall to patient's 2 daughters Afshan and Alondra. . Significant change in goals: Patient's family considering transitioning patient to comfort-directed care with hospice. . Objective Vital Signs Date Time Temp Pulse Resp B/P (MAP) Pulse Ox O2 Delivery O2 Flow Rate FiO2 06/22/17 13:14 76 06/22/17 08:30 76 06/22/17 08:30 Room Air 06/22/17 05:54 16 06/22/17 04:43 99.1 72 18 162/87 (112) 95 06/22/17 04:08 76 06/22/17 02:41 95 06/22/17 00:11 76 06/21/17 23:20 99.0 75 168/90 (116) 95 06/21/17 20:25 98.8 83 18 127/69 (88) 96 06/21/17 20:25 Room Air 06/21/17 20:15 80 06/21/17 16:26 99.0 79 14 176/95 (122) 96 Intake & Output 06/22/17 06/22/17 06:59 18:59 Intake Total 1100 ml Output Total 2625 ml Balance -2625 ml 1100 ml IV Total 1100 ml Output Urine Total 50 ml Drainage Total 2575 ml # Bowel Movements 1 Physical Exam CONSTITUTIONAL/GENERAL: This is an adequately nourished patient, in no apparent distress. TUBES/LINES/DRAINS: PIV, bilateral nephrostomy tubes. SKIN: No jaundice, rashes, or lesions. Ecchymoses on upper extremities. No wounds seen anteriorly. Skin temperature appropriate. Not diaphoretic. HEAD: Atraumatic. Normocephalic. EYES: Pupils equal and round and reactive. Extraocular motions intact. No scleral icterus. No injection or drainage. Fundi not examined. ENT: Hearing grossly normal. Nose without bleeding or purulent drainage. Moist oral mucosa. NECK: Trachea midline. Supple, nontender. CARDIOVASCULAR: Regular rate and rhythm without murmurs, gallops, or rubs. No JVD. Peripheral pulses symmetric. RESPIRATORY/CHEST: Symmetric, unlabored respirations. Clear to auscultation. Breath sounds equal bilaterally. GASTROINTESTINAL: Abdomen soft, non-tender, nondistended. No guarding. Bowel sounds present. GENITOURINARY: Without palpable bladder distension. Celaya catheter in place with small amount of hematuria. Bilateral nephrostomy tubes in place. MUSCULOSKELETAL: Extremities without clubbing, cyanosis. Bilateral lower extremity edema. No mottling or clubbing. NEUROLOGICAL: Awake, alert and oriented x self, place and situation. Following commands. PSYCHIATRIC: Appears calm. . Diagnostic Tests Laboratory Laboratory Tests Test 06/20/17 08:01 06/21/17 14:41 06/22/17 07:09 06/22/17 13:32 White Blood Count 7.7 TH/MM3 (4.0-11.0) 7.9 TH/MM3 (4.0-11.0) Red Blood Count 4.02 MIL/MM3 (4.50-5.90) 4.22 MIL/MM3 (4.50-5.90) Hemoglobin 10.3 GM/DL (13.0-17.0) 10.7 GM/DL (13.0-17.0) Hematocrit 32.1 % (39.0-51.0) 33.9 % (39.0-51.0) Mean Corpuscular Volume 79.9 FL (80.0-100.0) 80.3 FL (80.0-100.0) Mean Corpuscular Hemoglobin 25.6 PG (27.0-34.0) 25.3 PG (27.0-34.0) Mean Corpuscular Hemoglobin Concent 32.0 % (32.0-36.0) 31.5 % (32.0-36.0) Red Cell Distribution Width 23.8 % (11.6-17.2) 22.7 % (11.6-17.2) Platelet Count 199 TH/MM3 (150-450) 221 TH/MM3 (150-450) Mean Platelet Volume 7.4 FL (7.0-11.0) 7.5 FL (7.0-11.0) Neutrophils (%) (Auto) 71.8 % (16.0-70.0) 74.0 % (16.0-70.0) Lymphocytes (%) (Auto) 12.3 % (9.0-44.0) 12.2 % (9.0-44.0) Monocytes (%) (Auto) 11.7 % (0.0-8.0) 10.5 % (0.0-8.0) Eosinophils (%) (Auto) 3.9 % (0.0-4.0) 2.6 % (0.0-4.0) Basophils (%) (Auto) 0.3 % (0.0-2.0) 0.7 % (0.0-2.0) Neutrophils # (Auto) 5.5 TH/MM3 (1.8-7.7) 5.8 TH/MM3 (1.8-7.7) Lymphocytes # (Auto) 0.9 TH/MM3 (1.0-4.8) 1.0 TH/MM3 (1.0-4.8) Monocytes # (Auto) 0.9 TH/MM3 (0-0.9) 0.8 TH/MM3 (0-0.9) Eosinophils # (Auto) 0.3 TH/MM3 (0-0.4) 0.2 TH/MM3 (0-0.4) Basophils # (Auto) 0.0 TH/MM3 (0-0.2) 0.1 TH/MM3 (0-0.2) CBC Comment DIFF FINAL AUTO DIFF Differential Comment Blood Urea Nitrogen 38 MG/DL (7-18) 30 MG/DL (7-18) 28 MG/DL (7-18) Creatinine 2.67 MG/DL (0.60-1.30) 2.23 MG/DL (0.60-1.30) 1.98 MG/DL (0.60-1.30) Random Glucose 178 MG/DL (74-106) 274 MG/DL (74-106) 154 MG/DL (74-106) Total Protein 6.5 GM/DL (6.4-8.2) 6.7 GM/DL (6.4-8.2) 6.7 GM/DL (6.4-8.2) Albumin 2.1 GM/DL (3.4-5.0) Calcium Level 6.8 MG/DL (8.5-10.1) 6.8 MG/DL (8.5-10.1) 6.5 MG/DL (8.5-10.1) Phosphorus Level 2.2 MG/DL (2.5-4.9) 2.2 MG/DL (2.5-4.9) Magnesium Level 1.1 MG/DL (1.5-2.5) 1.4 MG/DL (1.5-2.5) Alkaline Phosphatase 74 U/L (45-117) Aspartate Amino Transf (AST/SGOT) 15 U/L (15-37) Alanine Aminotransferase (ALT/SGPT) 16 U/L (12-78) Total Bilirubin 0.5 MG/DL (0.2-1.0) Sodium Level 140 MEQ/L (136-145) 140 MEQ/L (136-145) 142 MEQ/L (136-145) Potassium Level 3.3 MEQ/L (3.5-5.1) 3.2 MEQ/L (3.5-5.1) 3.0 MEQ/L (3.5-5.1) Chloride Level 105 MEQ/L (98-107) 106 MEQ/L (98-107) 106 MEQ/L (98-107) Carbon Dioxide Level 25.3 MEQ/L (21.0-32.0) 26.7 MEQ/L (21.0-32.0) 27.5 MEQ/L (21.0-32.0) Anion Gap 10 MEQ/L (5-15) 7 MEQ/L (5-15) 9 MEQ/L (5-15) Estimat Glomerular Filtration Rate 25 ML/MIN (>89) 30 ML/MIN (>89) 35 ML/MIN (>89) Protein Corrected Calcium 7.1 MG/DL (8.5-10.1) 7.0 MG/DL (8.5-10.1) 6.7 MG/DL (8.5-10.1) Result Diagram: 06/22/17 1332 06/22/17 0709 Procedures * 06/19/17 -replacement of left nephrostomy tube * 06/15/17 -cystoscopy and palliative partial transurethral resection of bladder mass * 06/15/17 -bilateral nephrostomy tubes . Assessment and Plan Disease Oriented Problem List: (1) Acute metabolic encephalopathy (2) Chronic systolic CHF (congestive heart failure) (3) Prostate cancer metastatic to multiple sites (4) CAD (coronary artery disease), [place] coronary artery (5) Anemia due to acute blood loss (6) Hypertension Symptom Scale: (1) Agitation 0-10 Scale: 0 Comment: Metabolic encephalopathy (2) Debility 0-10 Scale: Unable to quantify Comment: Progressive, secondary to burden of disease. Pertinent Non-Medical Issues Psychosocial: Patient originally from [place], [place]. Moved to [place] in 1997. 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 No service. Patient is , previously for 17 years. Has 2 daughters, Afshan and Alondra who are twins. Spiritual: [employer] hoahaoism. Legal: Advance directives reported as completed. Pending copy. Ethical issues impacting care: Patient unable to participate in medical decision -making secondary to confusion. . Important Contacts Patient's daughter Afshan Bravo Patient's daughter Alondra Bravo Patient's ex- Erna Bravo . Prognosis Mr. Bravo is a 57-year-old male with a medical history significant for stage IV prostate cancer, insulin-dependent diabetes mellitus type 2, hypertension, CAD and CHF. Patient presented to ED on 06/12/17 with complaints of generalized weakness, epigastric pain, urinary retention and GI bleed. Clinical course complicated by bilateral obstructive uropathy and hydronephrosis s/p cystoscopy and palliative partial transurethral resection of bladder mass and bilateral nephrostomy tube placement. Patient's overall prognosis is poor given stage IV prostate cancer with metastasis to bone and bladder, secondary primary malignancy to bladder, multiple comorbidities and profound physical deconditioning. Patient unlikely to be a candidate for outpatient palliative systemic therapy given poor performance status. Patient appears hospice appropriate should patient/family elects comfort-directed care. . Code Status: Full Code Plan * CODE STATUS: Full code at this time. * HEALTHCARE DECISION-MAKING: Patient was found to lack medical decision-making capacity as per psychiatry consult 06/20/17, likely to regain given delirium. Advance directives reported as completed. Patient's ex- Erna Bravo presented herself as healthcare surrogate decision maker. Pending copy of advance directives. In the absence of AD and as per [place] statute, healthcare proxy decision-making would fall to patient's 2 daughters Afshan and Alondra. Palliative care recommends shared decision-making with patient's ex - Erna and 2 daughters Afshan and Alondra until advance directives are secured and verified. * GOALS OF CARE: 06/22/17 - Daughter Afshan and ex- Erna considering transitioning patient to comfort-directed care with hospice. Family reports that they are not to wishing to proceed with palliative chemotherapy at this time given patient's long history of medication noncompliance/treatment nonadherence. Family was encouraged to discuss further with oncology. Patient and family's goal is to discharge home over the weekend with hospice services for support. * Hospice philosophy and benefits reviewed. Referral made as per family's request. Patient appears hospice appropriate given metastatic prostate cancer and newly diagnosed secondary primary to bladder. . * SYMPTOMS: = Restlessness/agitation. Psychiatry consulted to determine capacity for medical decision-making. Patient was placed on Haldol twice a day and when necessary. Sitter at bedside for safety. No additional recommendations. = Debility, secondary to progression of illness. PT following , home with home health PT recommended. = Pain, secondary to burden of disease. Tylenol available as needed. No further recommendations. * Case discussed with DAVID Amaya, Dr. Britt and bedside RN. * Palliative care contact information has been provided to patient's family. * Palliative care will continue to follow-up for further clarifications of goals of care as patient's clinical course continues to evolve. . Time Spent Total Floor Time (mins): 36 (Total time to include review medical records, physical exam, goals of care conversation with patient's daughter Afshan and ex- Bird, case discussion with oncology and Dr. Britt.) >50% Counseling/Coord of Care: Yes Attestation To help prompt me to consider important information that might be impacting today's encounter and assessment, information from prior notes written by myself or my colleagues may have been "brought forward" into today's note. My signature on this note, however, is an attestation that I personally performed the exam, history, and/or decision-making noted today, and, unless otherwise indicated, the interactions with patient, family, and staff as well as the review of records all occurred today. I also attest that the listed assessment and stated plan reflect my best clinical judgment today based on the combination of historical information, prior notes, and today's exam/ interactions. When time spent is documented, it refers only to time spent today by the signer, or if indicated, combined time spent today by collaborating physician/nurse practitioner. Jacquelin Marie Jun 22, 2017 15:06
--- NOTE | 2017-06-22 15:43 | PD.ONC.PN ---
Subjective Subjective Remarks Afebrile overnight. Patient resting in room in nad. No complaints. Eager to go home with hospice. Objective Data Date Time Temp Pulse Resp B/P (MAP) Pulse Ox O2 Delivery O2 Flow Rate FiO2 06/22/17 15:27 99.0 69 16 150/79 (102) 91 06/22/17 13:14 76 06/22/17 08:30 76 06/22/17 08:30 Room Air 06/22/17 05:54 16 06/22/17 04:43 99.1 72 18 162/87 (112) 95 06/22/17 04:08 76 06/22/17 02:41 95 06/22/17 00:11 76 06/21/17 23:20 99.0 75 168/90 (116) 95 06/21/17 20:25 98.8 83 18 127/69 (88) 96 06/21/17 20:25 Room Air 06/21/17 20:15 80 06/21/17 16:26 99.0 79 14 176/95 (122) 96 06/22/17 06/22/17 06/22/17 07:00 15:00 23:00 Intake Total 1100 ml Output Total 2075 ml Balance -2075 ml 1100 ml Result Diagram: 06/22/17 1332 06/22/17 0709 Laboratory Results Laboratory Tests Test 06/22/17 07:09 06/22/17 13:32 Blood Urea Nitrogen 28 MG/DL Creatinine 1.98 MG/DL Random Glucose 154 MG/DL Total Protein 6.7 GM/DL Calcium Level 6.5 MG/DL Sodium Level 142 MEQ/L Potassium Level 3.0 MEQ/L Chloride Level 106 MEQ/L Carbon Dioxide Level 27.5 MEQ/L Anion Gap 9 MEQ/L Estimat Glomerular Filtration Rate 35 ML/MIN Protein Corrected Calcium 6.7 MG/DL White Blood Count 7.9 TH/MM3 Red Blood Count 4.22 MIL/MM3 Hemoglobin 10.7 GM/DL Hematocrit 33.9 % Mean Corpuscular Volume 80.3 FL Mean Corpuscular Hemoglobin 25.3 PG Mean Corpuscular Hemoglobin Concent 31.5 % Red Cell Distribution Width 22.7 % Platelet Count 221 TH/MM3 Mean Platelet Volume 7.5 FL Neutrophils (%) (Auto) 74.0 % Lymphocytes (%) (Auto) 12.2 % Monocytes (%) (Auto) 10.5 % Eosinophils (%) (Auto) 2.6 % Basophils (%) (Auto) 0.7 % Neutrophils # (Auto) 5.8 TH/MM3 Lymphocytes # (Auto) 1.0 TH/MM3 Monocytes # (Auto) 0.8 TH/MM3 Eosinophils # (Auto) 0.2 TH/MM3 Basophils # (Auto) 0.1 TH/MM3 CBC Comment AUTO DIFF Administered Medications Medications (Trade) Dose Ordered Sig/Jerzy Route PRN Reason Start Time Stop Time Status Last Admin Dose Admin Sodium Chloride (NS Flush) 2 ml UNSCH PRN IV FLUSH FLUSH AFTER USING IV ACCESS 06/12/17 05:00 06/19/17 01:38 Sodium Chloride (NS Flush) 2 ml BID IV FLUSH 06/12/17 09:00 06/21/17 20:33 Ondansetron HCl (Zofran Inj) 4 mg Q6H PRN IV PUSH NAUSEA OR VOMITING 06/12/17 05:00 06/18/17 13:00 Insulin Aspart (NovoLOG SUPPLEMENTAL SCALE) 1 ACHS SLIDING SCALE SQ 06/12/17 08:00 06/22/17 12:00 Tamsulosin HCl (Flomax) 0.4 mg HS PO 06/12/17 21:00 06/21/17 20:32 Clonidine (Catapres) 0.1 mg Q6H PRN PO SBP>180, DBP>100 06/12/17 06:00 06/17/17 17:50 Sucralfate (Carafate Liq) 1 gm ACHS PO 06/12/17 12:00 06/22/17 09:35 Alprazolam (Xanax) 0.5 mg Q8H PRN PO anxiety 06/12/17 12:00 06/22/17 11:13 Pantoprazole Sodium (Protonix) 40 mg BID PO 06/13/17 21:00 06/22/17 09:37 Sodium Bicarbonate 75 meq/Sodium Chloride 1,075 ml @ 100 mls/hr [id number] IV 06/15/17 07:00 06/22/17 11:00 Acetaminophen (Tylenol) 500 mg Q4H PRN PO musculoskeletal pain 06/16/17 09:45 06/22/17 04:54 Isosorbide Mononitrate (Imdur) 120 mg DAILY PO 06/17/17 09:00 06/22/17 09:37 Hydralazine HCl (Apresoline) 100 mg Q8HR PO 06/18/17 14:00 06/22/17 14:21 Insulin Detemir (Levemir Inj) 5 units Q12HR SQ 06/18/17 21:00 06/22/17 09:42 Calcium/Vitamin D (Oscal-D 250-125) 250 mg Q12HR PO 06/18/17 21:00 06/22/17 09:37 Calcitriol (Rocaltrol) 0.25 mcg DAILY PO 06/19/17 19:30 06/22/17 09:36 Bicalutamide (Casodex) 50 mg DAILY PO 06/20/17 09:00 06/22/17 09:37 Potassium Phos/ Sodium Phos (K-Phos Neutral) 250 mg Q6HR PO 06/20/17 12:00 06/22/17 12:00 Haloperidol (Haldol) 1 mg BID PO 06/20/17 12:15 06/22/17 09:37 Carvedilol (Coreg) 50 mg BID PO 06/21/17 21:00 06/22/17 09:36 Zolpidem Tartrate (Ambien) 5 mg HS PRN PO SLEEP 06/21/17 22:15 06/21/17 22:31 Senna/Docusate Sodium (Nichole-Colace) 2 tab BID PO 06/21/17 22:30 06/22/17 09:36 Objective Remarks GENERAL: Middle aged male sitting up in bed in [facility]. SKIN: Warm and dry. HEAD: Normocephalic. EYES: No injection or drainage. NECK: Supple, trachea midline. CARDIOVASCULAR: Regular rate and rhythm RESPIRATORY: Breath sounds equal bilaterally. No accessory muscle use. GASTROINTESTINAL: Abdomen soft, non-tender, nondistended. EXTREMITIES: No cyanosis MUSCULOSKELETAL: Adequate muscle tone. NEUROLOGICAL: awake and alert. moving all extremities. Assessment/Plan Problem List: (1) Prostate cancer metastatic to bone ICD Codes: C61 - Malignant neoplasm of prostate; C79.51 - Secondary malignant neoplasm of bone Status: Chronic Plan: --patient family requesting hospice Treatment History: July 2016-- [place] score of 4 + 4 = 8. tumor involved the prostate bilaterally and extended into the periprosthetic adipose tissue. was initiated on hormone blockade therapy with Lupron injections. --Recently--> developed progressive disease with lymphadenopathy in his right groin. CT scans of the pelvis confirmed the retroperitoneal adenopathy in the left iliac chain. +prominent lymphadenopathy in the pelvic sidewalls. + diffuse bone mets. +incomplete fracture in the left acetabulum and inferior pubic rami and fractures in the right superior inferior pubic rami+bladder wall thickening with a 2.3-cm mass. --bone scan --> widespread osseous metastatic disease involving the thoracic and lumbar spine+ sacral ala bilaterally and right intertrochanteric region. Mets in the proximal humerus and ribs. (2) Severe anemia ICD Codes: D64.9 - Anemia, unspecified Plan: --appears to be secondary to his hematuria. --no evidence of hemolysis. --s/p EGD (3) Hydronephrosis ICD Codes: N13.30 - Unspecified hydronephrosis Status: Acute Plan: --s/p nephrostomy tube placement on 06/17 --Bilateral hydronephrosis with obstruction due to malignancy, bladder mass and gross hematuria. --attempted ureteral stent placement on 06/15 was unsuccessful due tumor burden. --s/p biopsy of bladder mass, awaiting pathology. (4) Acute kidney failure ICD Codes: N17.9 - Acute kidney failure, unspecified Status: Acute Plan: --improved 06/18 after nephrostomy tube placement on 06/17 --due to urinary obstruction and hydronephrosis. Assessment 57y/o male with a history of stage IV prostate cancer admitted with urinary obstruction, hematuria and severe anemia. 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 s/p right-sided orchiectomy. did not receive any adjuvant chemotherapy or radiation treatments. Diabetes type 2 History of coronary stents in 2006. Plan 1. continue supportive care 2. monitor CBC Attending Statement The exam, history, and the medical decision-making described in the above note were completed with the assistance of the mid-level provider. I reviewed and agree with the findings presented. I attest that I had a [id number] encounter with the patient on the same day, and personally performed and documented my assessment and findings in the medical record The patient and family had decided to opt for palliative care/hospice d/c with hospice Problem Qualifiers (1) Acute kidney failure: Qualified Codes: N17.9 - Acute kidney failure, unspecified Agueda Armstrong Jun 22, 2017 15:43 Gonzalez Mosley MD Jun 22, 2017 21:58
[2017-06-22 16:10] LABS: ACANTHOCYTES 1+ (NORMAL); OVALOCYTES 1+ (NORMAL); SCAN/DIFF AUTO DIFF CONFIRMED; TEARDROP RBCS 1+ (NORMAL)
--- NOTE | 2017-06-22 17:25 | HHI.PR ---
Subjective Remarks BP still elevated into the 1540's to 160's systolic. Patient denies cp/sob discussed case with RN, patient has had 10 bowel movements which are solid. Also RN states that the patient has been requesting to sign out AMA. Calcium low Objective Vitals Vital Signs Date Time Temp Pulse Resp B/P (MAP) Pulse Ox O2 Delivery O2 Flow Rate FiO2 06/22/17 15:27 99.0 69 16 150/79 (102) 91 06/22/17 13:14 76 06/22/17 08:30 76 06/22/17 08:30 Room Air 06/22/17 05:54 16 06/22/17 04:43 99.1 72 18 162/87 (112) 95 06/22/17 04:08 76 06/22/17 02:41 95 06/22/17 00:11 76 06/21/17 23:20 99.0 75 168/90 (116) 95 06/21/17 20:25 98.8 83 18 127/69 (88) 96 06/21/17 20:25 Room Air 06/21/17 20:15 80 I/O 06/21/17 06/21/17 06/21/17 06/22/17 06/22/17 06/22/17 07:00 15:00 23:00 07:00 15:00 23:00 Intake Total 720 ml 1540 ml 1100 ml Output Total 3750 ml 3175 ml 2075 ml Balance -3030 ml -1635 ml -2075 ml 1100 ml Intake Oral 720 ml 840 ml IV Total 700 ml 1100 ml Output Urine Total 200 ml 50 ml Drainage Total 3750 ml 2975 ml 2025 ml # Bowel Movements 1 Result Diagram: 06/22/17 1332 06/22/17 0709 Imaging Last Impressions Nephrostomy Tube Change 06/19/17 1037 Signed Impressions: Service Date/Time: Monday, June 19, 2017 14:25 - CONCLUSION: Uncomplicated nephrostomy tube exchange as above. Werner Lawrence Jr., MD Abdomen/Pelvis CT 06/19/17 0000 Signed Impressions: Service Date/Time: Monday, June 19, 2017 00:22 - CONCLUSION: 1. Widespread sclerotic bony metastases. 2. Retroperitoneal, lateral pelvic, and inguinal adenopathy. 3. Suspected diffuse bladder wall thickening. The bladder is decompressed by a Celaya catheter. 4. Bilateral nephrostomy tubes in place. There is persistent severe dilatation of the left renal collecting system. There is mild dilatation of the right collecting system. Rogerio Phelan MD Chest X-Ray 06/17/17 0000 Signed Impressions: Service Date/Time: Saturday, June 17, 2017 14:11 - CONCLUSION: Some pulmonary vascular congestion with a tortuous aorta. No focal infiltrate. Doc Cotter MD Nephrostomy 06/15/17 0000 Signed Impressions: Service Date/Time: Thursday, June 15, 2017 16:45 - CONCLUSION: Uncomplicated nephrostomy tube placement as above. Alessandro Pope MD Objective Remarks GENERAL: Well-nourished, well-developed patient. SKIN: Warm and dry. HEAD: Normocephalic. EYES: No scleral icterus. No injection or drainage. NECK: Supple, trachea midline. No JVD or lymphadenopathy. CARDIOVASCULAR: Regular rate and rhythm without murmurs, gallops, or rubs. RESPIRATORY: Breath sounds equal bilaterally. No accessory muscle use. GASTROINTESTINAL: Bowel sounds present. Abdomen soft, non-tender, distended. EXTREMITIES: trace pedal edema. NEUROLOGICAL: Awake alert oriented to month, year. mildly confused. Medications and IVs Current Medications Medications (Trade) Dose Ordered Sig/Jerzy Route Start Time Stop Time Status Last Admin (NS Flush) 2 ml UNSCH PRN IV FLUSH 06/12/17 05:00 06/19/17 01:38 (NS Flush) 2 ml BID IV FLUSH 06/12/17 09:00 06/21/17 20:33 (Zofran Inj) 4 mg Q6H PRN IV PUSH 06/12/17 05:00 06/18/17 13:00 (D50w (Vial) Inj) 50 ml UNSCH PRN IV PUSH 06/12/17 05:30 (Glucagon Inj) 1 mg UNSCH PRN OTHER 06/12/17 05:30 (NovoLOG SUPPLEMENTAL SCALE) 1 ACHS SLIDING SCALE SQ 06/12/17 08:00 06/22/17 12:00 (Flomax) 0.4 mg HS PO 06/12/17 21:00 06/21/17 20:32 (Duoneb Neb) 1 ampule Q4HR NEB PRN NEB 06/12/17 05:45 (Catapres) 0.1 mg Q6H PRN PO 06/12/17 06:00 06/17/17 17:50 (Carafate Liq) 1 gm ACHS PO 06/12/17 12:00 06/22/17 09:35 (Xanax) 0.5 mg Q8H PRN PO 06/12/17 12:00 06/22/17 11:13 (Protonix) 40 mg BID PO 06/13/17 21:00 06/22/17 09:37 Sodium Bicarbonate 75 meq/Sodium Chloride 1,075 ml @ 100 mls/hr [id number] IV 06/15/17 07:00 06/22/17 11:00 (Tylenol) 500 mg Q4H PRN PO 06/16/17 09:45 06/22/17 04:54 (Imdur) 120 mg DAILY PO 06/17/17 09:00 06/22/17 09:37 (Pill Splitter) 1 ea UNSCH PRN OTHER 06/17/17 12:00 (Apresoline) 100 mg Q8HR PO 06/18/17 14:00 06/22/17 14:21 (Levemir Inj) 5 units Q12HR SQ 06/18/17 21:00 06/22/17 09:42 (Oscal-D 250-125) 250 mg Q12HR PO 06/18/17 21:00 06/22/17 09:37 (Rocaltrol) 0.25 mcg DAILY PO 06/19/17 19:30 06/22/17 09:36 (Casodex) 50 mg DAILY PO 06/20/17 09:00 06/22/17 09:37 (K-Phos Neutral) 250 mg Q6HR PO 06/20/17 12:00 06/22/17 12:00 (Haldol) 1 mg BID PO 06/20/17 12:15 06/22/17 09:37 (Haldol Inj) 2 mg Q6H PRN IM 06/20/17 12:15 (Coreg) 50 mg BID PO 06/21/17 21:00 06/22/17 09:36 (Ambien) 5 mg HS PRN PO 06/21/17 22:15 06/21/17 22:31 (Nichole-Colace) 2 tab BID PO 06/21/17 22:30 06/22/17 09:36 (Norvasc) 10 mg DAILY PO 06/23/17 09:00 UNV (Norvasc) 10 mg ONCE ONCE PO 06/22/17 14:45 06/22/17 14:46 UNV Urinary Catheter: No Vascular Central Line Catheter: No A/P Problem List: (1) GI bleed ICD Code: K92.2 - Gastrointestinal hemorrhage, unspecified Status: Resolved (2) Acute on chronic renal failure ICD Code: N17.9 - Acute kidney failure, unspecified; N18.9 - Chronic kidney disease, unspecified Status: Acute (3) Diabetes mellitus, type 2 ICD Code: E11.9 - Diabetes mellitus, type 2 Status: Chronic (4) Hydronephrosis ICD Code: N13.30 - Unspecified hydronephrosis Status: Acute (5) Anemia due to acute blood loss ICD Code: D62 - Acute posthemorrhagic anemia Status: Acute (6) Hematuria ICD Code: R31.9 - Hematuria, unspecified Status: Acute (7) Fall ICD Code: W19.XXXA - Unspecified fall, initial encounter Status: Acute (8) Prostate cancer metastatic to bone ICD Code: C61 - Malignant neoplasm of prostate; C79.51 - Secondary malignant neoplasm of bone Status: Chronic (9) Chronic systolic CHF (congestive heart failure) ICD Code: I50.22 - Chronic systolic (congestive) heart failure Status: Chronic (10) CAD (coronary artery disease), [place] coronary artery ICD Code: I25.10 - Atherosclerotic heart disease of [place] coronary artery without angina pectoris Status: Chronic (11) Acute metabolic encephalopathy ICD Code: G93.41 - Metabolic encephalopathy Status: Resolved (12) Prostate cancer metastatic to multiple sites ICD Code: C61 - Malignant neoplasm of prostate Status: Chronic (13) Ischemic cardiomyopathy ICD Code: I25.5 - Ischemic cardiomyopathy Status: Chronic (14) Duodenal ulcer ICD Code: K26.9 - Duodenal ulcer, unspecified as acute or chronic, without hemorrhage or perforation (15) Hypocalcemia ICD Code: E83.51 - Hypocalcemia Status: Acute (16) ATN (acute tubular necrosis) ICD Code: N17.0 - Acute kidney failure with tubular necrosis Status: Acute (17) Delirium due to another medical condition ICD Code: F05 - Delirium due to known physiological condition Status: Acute Assessment and Plan 1. Severe anemia d/t hematuria, gi bleed s/p EGD 06/13/17 showing duodenal ulcer and gastritis s/p Transfusion total 4 units PRBCs H&H remains stable Continue Protonix GI consulted - input appreciated. Monitor H&H, transfuse when necessary hemoglobin less than 7 or active bleeding 2. Acute renal failure, obstructive due to bladder mass, Status post cystoscopy 06/15 with partial resection of bladder mass presumably metastatic from known prostate cancer, ureteral stents were unable to be placed Status post emergent bilateral nephrostomy tubes 06/15 with interventional radiology. Nephrology and urology consulted, appreciate recommendations AKA likely secondary to obstructive uropathy. Apparently the patient was unable to get stent in the ureter still had the bilateral nephrostomy done on . Nephrology start the patient on normal saline with sodium bicarbonate. 06/22 Creatinine is slowly trending down creatinine down from 2.23 to 1.98. Continue to monitor BUN/creatinine, avoid nephrotoxins. 3. Pneumonia CXR 06/12 showed bilateral lower lobe infiltrates with consolidation on the left Zithromax Dc'd Patient completed total 7 days of IV Rocephin which has been discontinued. 4. Metastatic prostate cancer Patient with known prostate ca and accompanying metastatic disease to bone, bladder, lost to follow up 06/19 Appreciate input from oncology -consideration to systemic chemotherapy while inpatient to help palliate obstructive symptoms. Repeat CT of the abdomen and pelvis shows widespread sclerotic bony metastases and persistent severe dilatation of the left renal collecting system. Patient is sp nephrostomy tube exchange. 06/22 Discussed the case with Jacquelin Marie from palliative care. as per palliative care conversation with daughter Afshan and Ex . family reports that they are not to wishing to proceed with palliative chemotherapy at this time given patient's long history of medication noncompliance/treatment adherence. Family inquiring re hospice. Family's goal is to get patient home over the weekend with hospice services for support. Family requesting hospice referral, referral made. 5. Known chronic systolic CHF, ischemic cardiomyopathy with EF 15% in 2007, s/p stent to LAD at that time by Dr. Scott 2-D echo 06/16 with LVEF of 30-35%, mildly dilated left ventricle, mild tricuspid and mitral valve regurgitation Cardiology following EKG with possible lateral ischemic changes On isosorbide mononitrate, coreg no asa due to bleeding no acei due to ARF 6. Hypertension monitor BP trends and adjust medications as needed Continue current BP meds - on hydralazine 100 mg by mouth every 8 hours. Labetalol 25 minutes by mouth twice a day. 06/21 BP seems to be elevated with a systolic blood pressure noted 170s. I will increase the dose of carvedilol to 50 mg by mouth twice a day. 06/22 BP still elevated. Will start patient on Cardura 2 mg po daily. 7. CAD/Elevated troponin s/p LAD stent in 2007 Troponin 0.07, suspect secondary to renal failure Acs ruled out Cardiology consulted, patient seen by Dr Bradshaw - conservative care 8. Acute metabolic/uremic encephalopathy - improving Reorient DCed opioids, tylenol for pain 06/22 Continue sitter, patient getting agitated and trying to leave AMA. Instructed RN to administer Haldol IM if patient agitated. 9. T2DM Continue with sliding scale insulin and Accu-Cheks. Blood glucose in the 100 -200 trend. 06/19 Blood sugars more stable. Continue insulin Levemir 5 units SQ Q12 hrs. 06/20 blood sugars with improved control however still elevated in the 180s. I will increase Levemir to 10 units subcutaneous every 12 hours. 06/22 Blood sugars still uncontrolled and severely elevated in the 300's level. Levemir not increased yesterday - Increase Levemir up to 10 units SQ BID. I will also start the patient on prandial insulin NovoLog with 5 units subcutaneous 3 times a day before meals. 10. Hypocalcemia and hyperphosphatemia Started on calcium acetate per nephrology/Dr. Allen monitor BMP 06/20 Calcium still low, will order Calcium chloride IV. 06/22 BMP low at 6.7 - IV Calcium chloride ordered. 11/ Delirium Patient had been confused over the past several days. Psychiatry has been consulted. I discussed the case with Dr. Rosa who states the patient is not stated at the moment to make any medical decisions. The patient IV started on Haldol. Marifer sitter at bedside since patient has been agitated and has a potential for aggressive behavior. Patient lacks capacity to make medical decisions and cannot sign out AMA. DVT prophylaxis: Chemical anti-prophylactic contraindicated secondary to GI bleed as well as hematuria.. Bilateral SCDs Discharge Planning Continue to monitor in the oncology floor. Family has declined palliative chemotherapy and hospice consult is pending. Possible discharge on Sunday that is when the patient's family can take him home. Problem Qualifiers (1) GI bleed: Qualified Codes: K92.2 - Gastrointestinal hemorrhage, unspecified Berhane Cain MD Jun 22, 2017 17:25
[2017-06-22] MEDS: TAMSULOSIN HCL 0.4 MG CAP PO SCH (22:05)
[2017-06-23] VITALS: PULSE 78
[2017-06-23 04:02] VITALS: PULSE 80
[2017-06-23] MEDS: POTASSIUM PHOSPHATE/SODIUM PHOSPHATE 250 MG TAB PO SCH ×4 (04:26→18:00)
[2017-06-23] MEDS: hydrALAZINE HCL 50 MG TAB PO SCH ×2 (04:27→14:00)
[2017-06-23] MEDS: ACETAMINOPHEN 500 MG CPLT PO PRN (04:27)
[2017-06-23 04:28] VITALS: BP 136/64; PULSE 83; RESP 18; O2SAT 95
[2017-06-23 07:15] VITALS: PULSE 79
[2017-06-23 07:39] LABS: BICARBONATE 27.4 MEQ/L (21.0-32.0); POTASSIUM 3.1 MEQ/L (3.5-5.1)
[2017-06-23 08:00] VITALS: BP 145/67; PULSE 79; RESP 16; TEMP 97.8; O2SAT 92
[2017-06-23] MEDS: INSULIN ASPART SUPPLEMENTAL SCALE SQ SCH ×3 (08:00→17:00)
[2017-06-23 08:23] LABS: CALCIUM-PROTEIN CORRECTED 7.1 MG/DL (8.5-10.1)
[2017-06-23] MEDS: SODIUM BICARBONATE 8.4% INJ 75 MEQ in SODIUM CHLOR 0.45% 1000 ML INJ 1,000 ML IV SCH (08:30)
[2017-06-23] MEDS: ISOSORBIDE MONONITRATE 60 MG TAB PO SCH (09:42)
[2017-06-23] MEDS: SUCRALFATE 1 GM/10 ML CUP PO SCH ×3 (09:42→17:00)
[2017-06-23] MEDS: HALOPERIDOL 1 MG TAB PO SCH (09:42)
[2017-06-23] MEDS: CALCITRIOL 0.25 MCG CAP PO SCH (09:42)
[2017-06-23] MEDS: DOCUSATE SODIUM 50 MG/SENNA 8.6 MG TAB PO SCH (09:43)
[2017-06-23] MEDS: CARVEDILOL 12.5 MG TAB PO SCH (09:43)
[2017-06-23] MEDS: CALCIUM/VITAMIN D 250 MG/125 U TAB PO SCH (09:43)
[2017-06-23] MEDS: PANTOPRAZOLE SOD 40 MG DELAYED RELEASE TAB PO SCH (09:43)
[2017-06-23] MEDS: BICALUTAMIDE 50 MG TAB PO SCH (09:43)
[2017-06-23] MEDS: INSULIN DETEMIR 100 UNITS/ML VIAL SQ SCH (09:43)
[2017-06-23] MEDS: SODIUM CHLORIDE 0.9% FLUSH 10 ML FLUSH IV FLUSH SCH (09:44)
[2017-06-23 12:00] VITALS: BP 132/77; PULSE 74; RESP 16; TEMP 98.3; O2SAT 96
--- NOTE | 2017-06-23 15:49 | HHI.NPPN ---
Subjective History of Present Illness 7-year-old male with past medical history of adenocarcinoma of the prostate with metastasis, hypertension, diabetes mellitus, ischemic heart disease, chronic kidney disease who was admitted with complaint of nausea, vomiting and abdominal pain. I was called to see the patient because of very high BUN and creatinine. The patient has a history of chronic kidney disease. His creatinine has been around 1.8 to 1.6. Additional Remarks Patient is more alert, now fully oriented, not in distress, clinically same. Review of Systems General General Remarks Unable to give much review of system. Objective Data Data Vital Signs Date Time Temp Pulse Resp B/P (MAP) Pulse Ox O2 Delivery O2 Flow Rate FiO2 06/23/17 12:00 98.3 74 16 132/77 (95) 96 06/23/17 08:00 97.8 79 16 145/67 (93) 92 06/23/17 07:15 79 06/23/17 07:00 Room Air 21 06/23/17 06:02 16 06/23/17 04:28 83 18 136/64 (88) 95 06/23/17 04:02 80 06/23/17 00:00 78 06/22/17 21:30 Room Air 21 06/22/17 20:00 81 06/22/17 19:34 99.0 82 16 148/80 (102) 97 -: 06/22/17 1332 06/23/17 0530 Physical Exam General Appearance: No Acute Distress, Comfortable Eyes Eye Exam: Pupils Equal Neck Neck Exam: Neck Supple, Trachea Midline Pulmonary Resp Exam: Breath Sounds Equal, No Distress, Rhonchi Cardiology CV Exam: Regular, Normal Sinus Rhythm Gastrointestinal/Abdomen GI Exam: Soft, Non-Tender, Bowel Sounds Present Extremeties Extremities Exam: Trace Edema Neurologic Neuro Exam: Alert, Awake, Oriented Psychiatric Psych Exam: Appropriate Responses Assessment/Plan Assessment Summary: MIRYAM/Acute Renal Failure, Hypertension Electrolyte Assessment: Metabolic Acidosis Problem List: (1) Benign essential hypertension Status: Chronic (2) CAD (coronary artery disease) ICD Codes: I25.10 - Atherosclerotic heart disease of [place] coronary artery without angina pectoris Status: Chronic (3) History of CHF (congestive heart failure) ICD Codes: Z86.79 - Personal history of other diseases of the circulatory system Status: Chronic (4) Diabetes mellitus, type 2 ICD Codes: E11.9 - Diabetes mellitus, type 2 Status: Chronic (5) Prostate CA ICD Codes: C61 - Malignant neoplasm of prostate (6) Hematuria ICD Codes: R31.9 - Hematuria, unspecified Status: Acute (7) Acute on chronic renal failure ICD Codes: N17.9 - Acute kidney failure, unspecified; N18.9 - Chronic kidney disease, unspecified Status: Acute Plan Patient has chronic kidney disease and develop MIRYAM. Most likely due to obstructive uropathy. Had Cystoscopy done. Has bladder tumor removed. Unable to get stent in the ureter. Had bilateral Nephrostomy done on 06/15. BUN and Creatinine continue to improve. K is now normal. Po4 is now normalized. Calcium, Po4 and Mg are low, on Oscal and, also on Rocaltrol. On PO Po4, Creatinine is almost same. Problem Qualifiers (1) CAD (coronary artery disease): Qualified Codes: I25.10 - Atherosclerotic heart disease of [place] coronary artery without angina pectoris Raquel Allen MD Jun 23, 2017 15:49
--- NOTE | 2017-06-23 16:17 | HHI.PR ---
Subjective Remarks Follow-up 06/23/17-patient seen and examined, get to go home. Denies any abdominal pain. Oriented and alert. Mom by the bedside Objective Vitals Vital Signs Date Time Temp Pulse Resp B/P (MAP) Pulse Ox O2 Delivery O2 Flow Rate FiO2 06/23/17 12:00 98.3 74 16 132/77 (95) 96 06/23/17 08:00 97.8 79 16 145/67 (93) 92 06/23/17 07:15 79 06/23/17 07:00 Room Air 21 06/23/17 06:02 16 06/23/17 04:28 83 18 136/64 (88) 95 06/23/17 04:02 80 06/23/17 00:00 78 06/22/17 21:30 Room Air 21 06/22/17 20:00 81 06/22/17 19:34 99.0 82 16 148/80 (102) 97 I/O 06/22/17 06/22/17 06/22/17 06/23/17 06/23/17 06/23/17 07:00 15:00 23:00 07:00 15:00 23:00 Intake Total 1100 ml 1320 ml 720 ml Output Total 2075 ml 2550 ml 2375 ml Balance -2075 ml 1100 ml -1230 ml -1655 ml Intake Oral 1320 ml 720 ml IV Total 1100 ml Output Urine Total 50 ml Drainage Total 2025 ml 2550 ml 2375 ml # Bowel Movements 1 10 3 Result Diagram: 06/22/17 1332 06/23/17 0530 Imaging Last Impressions Nephrostomy Tube Change 06/19/17 1037 Signed Impressions: Service Date/Time: Monday, June 19, 2017 14:25 - CONCLUSION: Uncomplicated nephrostomy tube exchange as above. Werner Lawrence Jr., MD Abdomen/Pelvis CT 06/19/17 0000 Signed Impressions: Service Date/Time: Monday, June 19, 2017 00:22 - CONCLUSION: 1. Widespread sclerotic bony metastases. 2. Retroperitoneal, lateral pelvic, and inguinal adenopathy. 3. Suspected diffuse bladder wall thickening. The bladder is decompressed by a Celaya catheter. 4. Bilateral nephrostomy tubes in place. There is persistent severe dilatation of the left renal collecting system. There is mild dilatation of the right collecting system. Rogerio Phelan MD Chest X-Ray 06/17/17 0000 Signed Impressions: Service Date/Time: Saturday, June 17, 2017 14:11 - CONCLUSION: Some pulmonary vascular congestion with a tortuous aorta. No focal infiltrate. Doc Cotter MD Nephrostomy 06/15/17 0000 Signed Impressions: Service Date/Time: Thursday, June 15, 2017 16:45 - CONCLUSION: Uncomplicated nephrostomy tube placement as above. Alessandro Pope MD Objective Remarks GENERAL: NAD SKIN: Warm and dry. HEAD: Normocephalic. EYES: No scleral icterus. No injection or drainage. NECK: Supple, trachea midline. No JVD or lymphadenopathy. CARDIOVASCULAR: Regular rate and rhythm without murmurs, gallops, or rubs. RESPIRATORY: Breath sounds equal bilaterally. No accessory muscle use. GASTROINTESTINAL: Abdomen soft, non-tender, nondistended. MUSCULOSKELETAL: No cyanosis, or edema. : Celaya with gross hematuria BACK: Nontender without obvious deformity. No CVA tenderness. A/P Problem List: (1) GI bleed ICD Code: K92.2 - Gastrointestinal hemorrhage, unspecified Status: Resolved (2) Acute on chronic renal failure ICD Code: N17.9 - Acute kidney failure, unspecified; N18.9 - Chronic kidney disease, unspecified Status: Acute (3) Diabetes mellitus, type 2 ICD Code: E11.9 - Diabetes mellitus, type 2 Status: Chronic (4) Hydronephrosis ICD Code: N13.30 - Unspecified hydronephrosis Status: Acute (5) Anemia due to acute blood loss ICD Code: D62 - Acute posthemorrhagic anemia Status: Acute (6) Hematuria ICD Code: R31.9 - Hematuria, unspecified Status: Acute (7) Fall ICD Code: W19.XXXA - Unspecified fall, initial encounter Status: Acute (8) Prostate cancer metastatic to bone ICD Code: C61 - Malignant neoplasm of prostate; C79.51 - Secondary malignant neoplasm of bone Status: Chronic (9) Chronic systolic CHF (congestive heart failure) ICD Code: I50.22 - Chronic systolic (congestive) heart failure Status: Chronic (10) CAD (coronary artery disease), [place] coronary artery ICD Code: I25.10 - Atherosclerotic heart disease of [place] coronary artery without angina pectoris Status: Chronic (11) Acute metabolic encephalopathy ICD Code: G93.41 - Metabolic encephalopathy Status: Resolved (12) Prostate cancer metastatic to multiple sites ICD Code: C61 - Malignant neoplasm of prostate Status: Chronic (13) Ischemic cardiomyopathy ICD Code: I25.5 - Ischemic cardiomyopathy Status: Chronic (14) Duodenal ulcer ICD Code: K26.9 - Duodenal ulcer, unspecified as acute or chronic, without hemorrhage or perforation (15) Hypocalcemia ICD Code: E83.51 - Hypocalcemia Status: Acute (16) ATN (acute tubular necrosis) ICD Code: N17.0 - Acute kidney failure with tubular necrosis Status: Acute (17) Delirium due to another medical condition ICD Code: F05 - Delirium due to known physiological condition Status: Acute Assessment and Plan 57 year-old man with 1. Severe anemia d/t hematuria, gi bleed s/p EGD 06/13/17 showing duodenal ulcer and gastritis s/p Transfusion total 4 units PRBCs H&H remains stable Continue Protonix GI consulted - input appreciated. Monitor H&H, transfuse when necessary hemoglobin less than 7 or active bleeding 2. Acute renal failure, obstructive due to bladder mass, Status post cystoscopy 06/15 with partial resection of bladder mass presumably metastatic from known prostate cancer, ureteral stents were unable to be placed Status post emergent bilateral nephrostomy tubes 06/15 with interventional radiology. Nephrology and urology consulted, appreciate recommendations 3. Pneumonia CXR 06/12 showed bilateral lower lobe infiltrates with consolidation on the left Zithromax Dc'd 4. Metastatic prostate cancer Patient with known prostate ca and accompanying metastatic disease to bone, bladder, lost to follow up 06/19 Appreciate input from oncology -consideration to systemic chemotherapy while inpatient to help palliate obstructive symptoms. Patient is sp nephrostomy tube exchange. Likely with go home with Hospice tomorrow 06/24/17 5. Known chronic systolic CHF, ischemic cardiomyopathy with EF 15% in 2007, s/p stent to LAD at that time by Dr. Scott 2-D echo 06/16 with LVEF of 30-35%, mildly dilated left ventricle, mild tricuspid and mitral valve regurgitation Cardiology following On isosorbide mononitrate, Coreg no asa due to bleeding no LAURO-I due to ARF 6. Hypertension monitor BP trends and adjust medications as needed Continue current BP meds - on hydralazine 100 mg by mouth every 8 hours. Labetalol 25 minutes by mouth twice a day, Cardura 2 mg po daily. 7. CAD/Elevated troponin s/p LAD stent in 2007 Troponin 0.07, suspect secondary to renal failure Acs ruled out Cardiology consulted, patient seen by Dr Bradshaw - conservative care 8. Acute metabolic/uremic encephalopathy - improved Reorient DCed opioids, Tylenol for pain 9. T2DM Levemir 10 units SQ BID, NovoLog with 5 units subcutaneous 3 times a day before meals. 10. Hypocalcemia and hyperphosphatemia Started on calcium acetate per nephrology/Dr. Allen s/p IV Calcium chloride ordered. 11/ Delirium Resolved DVT prophylaxis: Chemical anti-prophylactic contraindicated secondary to GI bleed as well as hematuria.. Bilateral SCDs Problem Qualifiers (1) GI bleed: Qualified Codes: K92.2 - Gastrointestinal hemorrhage, unspecified aLn West MD Jun 23, 2017 16:17
== END 2017-06-23 20:59 | disposition hospice, home (50) | DRG 668 ==
LOC: NEPC 01:36 → NEDA 03:25 → N03B 06:51 → N07B 14:40 → HCIN 06-13 17:00
PROVIDERS: ADMIT Family Medicine; ATTEND Hospitalist
PROC: 30233N1 Transfusion of Nonautologous Red Blood Cells into Peripheral Vein, Percutaneous Approach (ICD-10-PCS; 2017-06-12)
PROC: 0DB68ZX Excision of Stomach, Via Natural or Artificial Opening Endoscopic, Diagnostic (ICD-10-PCS; 2017-06-13)
PROC: 0DB98ZX Excision of Duodenum, Via Natural or Artificial Opening Endoscopic, Diagnostic (ICD-10-PCS; 2017-06-13)
PROC: 0T9030Z Drainage of Right Kidney with Drainage Device, Percutaneous Approach (ICD-10-PCS; 2017-06-15)
PROC: 0T9130Z Drainage of Left Kidney with Drainage Device, Percutaneous Approach (ICD-10-PCS; 2017-06-15)
PROC: 0TBB8ZX Excision of Bladder, Via Natural or Artificial Opening Endoscopic, Diagnostic (ICD-10-PCS; principal; 2017-06-15 11:12)
PROC: 0T25X0Z Change Drainage Device in Kidney, External Approach (ICD-10-PCS; 2017-06-19)
DX: C79.11 Secondary malignant neoplasm of bladder (principal); N17.0 Acute kidney failure with tubular necrosis; G93.41 Metabolic encephalopathy; J18.9 Pneumonia, unspecified organism; I13.0 Hypertensive heart and chronic kidney disease with heart failure and stage 1 through stage 4 chronic kidney disease, or unspecified chronic kidney disease; C79.51 Secondary malignant neoplasm of bone; I50.22 Chronic systolic (congestive) heart failure; K92.0 Hematemesis; E87.2 Acidosis; F05 Delirium due to known physiological condition; D62 Acute posthemorrhagic anemia; N13.39 Other hydronephrosis; M84.550A Pathological fracture in neoplastic disease, pelvis, initial encounter for fracture; K26.9 Duodenal ulcer, unspecified as acute or chronic, without hemorrhage or perforation; E11.22 Type 2 diabetes mellitus with diabetic chronic kidney disease; C61 Malignant neoplasm of prostate; E83.51 Hypocalcemia; E87.5 Hyperkalemia; I25.10 Atherosclerotic heart disease of native coronary artery without angina pectoris; K29.70 Gastritis, unspecified, without bleeding; K29.80 Duodenitis without bleeding; I25.5 Ischemic cardiomyopathy; R31.0 Gross hematuria; E11.65 Type 2 diabetes mellitus with hyperglycemia; Z51.5 Encounter for palliative care; N99.522 Malfunction of incontinent external stoma of urinary tract; I95.9 Hypotension, unspecified; R00.1 Bradycardia, unspecified; R53.1 Weakness; E11.42 Type 2 diabetes mellitus with diabetic polyneuropathy; Z85.47 Personal history of malignant neoplasm of testis; Z95.5 Presence of coronary angioplasty implant and graft; Z91.14 Patient's other noncompliance with medication regimen; Z91.19 Patient's noncompliance with other medical treatment and regimen; Z79.4 Long term (current) use of insulin; Z88.8 Allergy status to other drugs, medicaments and biological substances
CPT/HCPCS: 36430; 50432; 50435; 51702; 71010; 74176; 76937; 80048; 80053; 80076; 81001; 82550; 82552; 82607; 82747; 82948; 83540; 83550; 83615; 83690; 83735; 83880; 84100; 84153; 84155; 84466; 84484; 85014; 85018; 85025; 85610; 85730; 86850; 86900; 86901; 86920; 87086; 88305; 88307; 88312; 88341; 88342; 93005; 93306; 96374; 99152; 99153; C1729; C1769; C9113; J0456; J0696; J1100; J1170; J1630; J1756; J1815; J2060; J2250; J2270; J2370; J2405; J3010; J3475; J7030; J7040; J7050; J7120; P9016; Q9963; Q9967

== ENCOUNTER 2017-08-29 06:43 | Day surgery (SDC) | payer OTHER ==
[2017-08-29] VITALS (11 sets, daily range): BP systolic 94–164; BP diastolic 62–92; PULSE 57–84; RESP 16–20; TEMP 97.4–97.8; O2SAT 92–99
[~2017-08-29] VITALS: Ht 185.4 cm; Wt 88.6 kg
[~2017-08-29 06:43] MED LIST changes: -CIPR-9 PO
[2017-08-29] MEDS ORDERED: IOHEXOL 350 MG/ML 50 ML BTL (for RAD DIAG) OTHER ONE ×2 (06:44→09:00)
[2017-08-29] MEDS ORDERED: CARV12.5 PO (07:00)
[2017-08-29] MEDS ORDERED: LISI-515 PO (07:00)
[2017-08-29] MEDS ORDERED: LANTUS2P SQ (07:00)
[2017-08-29] MEDS ORDERED: SODIUM CHLORIDE 0.9% 1000 ML IV SCH (07:30)
[2017-08-29 07:33] LABS: AUTOMATED NEUTROPHIL # 7.3 TH/MM3 (1.8-7.7); BASOPHIL # 0.1 TH/MM3 (0-0.2); BASOPHIL % 0.6 % (0.0-2.0); EOSINOPHIL # 0.3 TH/MM3 (0-0.4); EOSINOPHIL % 2.8 % (0.0-4.0); HEMATOCRIT 32.5 % (39.0-51.0); HEMOGLOBIN 10.6 GM/DL (13.0-17.0); LYMPH % 10.9 % (9.0-44.0); MEAN CELL VOLUME 77.5 FL (80.0-100.0); MEAN CORPUSCULAR HEMOGLOBIN 25.3 PG (27.0-34.0); MEAN CORPUSCULAR HGB CONC 32.7 % (32.0-36.0); MEAN PLATELET VOLUME 7.3 FL (7.0-11.0); MONO % 7.8 % (0.0-8.0); MONOCYTE # 0.7 TH/MM3 (0-0.9); NEUT % 77.9 % (16.0-70.0); PLATELET COUNT 331 TH/MM3 (150-450); RED CELL DISTRIBUTION WIDTH 16.8 % (11.6-17.2); WHITE BLOOD COUNT 9.4 TH/MM3 (4.0-11.0)
[2017-08-29 07:42] LABS: INTERNATIONAL NORMALIZED RATIO 1.1 RATIO; PROTHROMBIN TIME - PATIENT 10.7 SEC (9.8-11.6)
[2017-08-29 07:45] LABS: BICARBONATE 26.8 MEQ/L (21.0-32.0); CALCIUM 8.8 MG/DL (8.5-10.1); CREATININE 1.42 MG/DL (0.60-1.30)
[2017-08-29] MEDS ORDERED: MIDAZOLAM HCL 5 MG/5 ML VIAL ONE (08:12)
[2017-08-29] MEDS ORDERED: fentaNYL CITRATE 250 MCG/5 ML AMP ONE ×2 (08:12→14:15)
[2017-08-29] MEDS: LEVOFLOXACIN 500 MG PREMIX 100 ML - nephrostomy tube insertion or exchange IV SCH ×2 (08:53→11:57)
--- NOTE | 2017-08-29 11:06 | PD.RAD ---
Post Procedure Progress Note Pre Procedure Diagnosis: (1) Prostate CA Post Procedure Diagnosis: (1) Prostate cancer metastatic to multiple sites Procedure Date: Aug 29, 2017 Supervising Radiologist: Grant Perry Proceduralist/Assist: Dennis Winn RT(R), RT Lamin(R) Anesthesia: Conscious Sedation Plan of Activity Patient to Unit: ROPU Patient Condition: Good See PACS Report for procedural detail/treatment Drainage Procedure Procedure 1 Imaging Guidance: Fluoroscopy Side: Left Procedure Type: Nephrostomy Procedure: Exchange Drainage: [place] drainage Fluid Description: Clear Procedure 2 Imaging Guidance: Fluoroscopy Side: Right Procedure Type: Ureteral Stent (internal external) Procedure: Conversion Drainage: [place] drainage Fluid Description: Clear Grant Perry MD Aug 29, 2017 11:06
--- NOTE | 2017-08-29 11:10 | RADRPT ---
EXAM DATE/TIME: 08/29/2017 09:32 [facility] COMPARISON: No previous studies available for comparison. INDICATIONS : Patient with history of hydronephrosis in need of nephroureteral catheter placement. MEDICAL HISTORY : Prostate cancer, Diabetes, HTN, BPH SURGICAL HISTORY : Prostate needle biopsy, Orchiectomy, Cardiac stent, Bilateral nephrostomy catheter ENCOUNTER: Subsequent ACUITY: >1 year PAIN SCORE: 4/10 LOCATION: Bilateral anterior ribs FLUORO TIME: 31.3 minutes IMAGE SERIES: 6 SEDATION TIME: 60 minutes CONTRAST: 50 cc Omnipaque (iohexol) 350 MEDICATION(S): 1.) 5 mg midazolam (Versed) IV 2.) 250 mcg fentanyl (Sublimaze) IV Prophylactic antibiotics were administered with appropriate pre-procedure timing. Vancomycin within 2 hours of procedure, Ancef (or alternative) within 1 hour of procedure. DEVICE(S): 1.) 10 Macedonian X22CM Expel nephroureteral stent PROCEDURE : 1. Ultrasound-guided puncture of the kidney. 2. Antegrade percutaneous pyelogram. 3. Percutaneous nephroureteral placement. 4. Conscious sedation with continuous EKG and oximetry monitoring. The risks, benefits and alternatives to the procedure were explained and verbal and written consent w as obtained. The site was prepped in sterile fashion. Full sterile technique was used, including ca p, mask, sterile gloves and gown and a large sterile sheet. Hand hygiene and 2% chlorhexidine and/or betadine/alcohol prep was utilized per protocol for cutaneous antisepsis. Sterile gel and sterile probe cover were utilized for ultrasound guidance. The skin and subcutaneous tissues were infiltrate d with local anesthetic solution. The previously placed nephrostomy tube was removed over a guidewire and the prescribed nephroureteral stent was also placed over the guidewire into the bladder. The bladder itself demonstrates extensive abnormality characteristic of extension of the prostate carcinoma into the bladder. Conscious sedation was performed with the prescribed dosages and duration as above in the presence of an independent trained radiology nurse to assist in the monitoring of the patient. EKG and oximetry remained stable throughout the procedure. The patient tolerated the procedure well and there were n o complications. The patient was sent to post anesthesia recovery in stable condition. CONCLUSION: Uncomplicated conversion of nephrostomy to nephroureteral stent Grant Perry MD on August 29, 2017 at 11:06 Board Certified Radiologist. This report was verified electronically.
--- NOTE | 2017-08-29 11:11 | RADRPT ---
EXAM DATE/TIME: 08/29/2017 09:32 [facility] COMPARISON: CHANGE OF NEPHROSTOMY CATH, LT, June 19, 2017, 14:25. INDICATIONS : Patient with history of hydronephrosis in need of nephrostomy tube exchange. MEDICAL HISTORY : Prostate cancer, Diabetes, HTN, BPH SURGICAL HISTORY : Prostate needle biopsy, Orchiectomy, Cardiac stent, Bilateral nephrostomy catheter ENCOUNTER: Subsequent ACUITY: >1 year PAIN SCORE: 4/10 LOCATION: Bilateral anterior ribs FLUORO TIME: 31.3 minutes IMAGE SERIES: 6 SEDATION TIME: 60 minutes CONTRAST: 50 cc Omnipaque (iohexol) 350 MEDICATION(S): 1.) 5 mg midazolam (Versed) IV 2.) 250 mcg fentanyl (Sublimaze) IV Prophylactic antibiotics were administered with appropriate pre-procedure timing. Vancomycin within 2 hours of procedure, Ancef (or alternative) within 1 hour of procedure. DEVICE(S): 1.) 10 English X25CM Expel nephrostomy catheter PROCEDURE : 1. Antegrade pyelogram. 2. Nephrostomy tube exchange. 3. Conscious sedation with continuous EKG and oximetry monitoring. The risks, benefits and alternatives to the procedure were explained and verbal and written consent w as obtained. The site was prepped in sterile fashion. Full sterile technique was used, including ca p, mask, sterile gloves and gown and a large sterile sheet. Hand hygiene and 2% chlorhexidine and/or betadine/alcohol prep was utilized per protocol for cutaneous antisepsis. The skin and subcutaneous tissues were infiltrated with local anesthetic solution. With fluoroscopic guidance antegrade pyelo gram was performed. Over a guidewire the prescribed nephrostomy tube was placed. Injection of positive contrast demonstra jaylin good position of the catheter within the collecting system. Multiple attempts were made to cross the distal ureteral orifice to place a left ureteral stent though this was not successful secondary t o the extensive bladder neoplasm. Conscious sedation was performed with the prescribed dosages and duration as above in the presence of an independent trained radiology nurse to assist in the monitoring of the patient. EKG and oximetry remained stable throughout the procedure. The patient tolerated the procedure well and there were n o complications. The patient was sent to post anesthesia recovery in stable condition. CONCLUSION: Uncomplicated nephrostomy tube exchange as above. Grant Perry MD on August 29, 2017 at 11:08 Board Certified Radiologist. This report was verified electronically.
[2017-08-29] MEDS ORDERED: HYDROmorphone HCL PF 2 MG/ML VIAL IV PUSH ONE (11:15)
[2017-08-29] MEDS ORDERED: LORazepam 2 MG/ML VIAL ONE (14:27)
--- NOTE | 2017-08-29 15:28 | PD.RAD ---
Post Procedure Progress Note Pre Procedure Diagnosis: (1) Prostate cancer metastatic to bone Post Procedure Diagnosis: (1) Prostate cancer metastatic to bone Procedure Date: Aug 29, 2017 Supervising Radiologist: Grant Perry Proceduralist/Assist: Dennis Winn RT(R), RT Lamin(R) Anesthesia: Conscious Sedation Plan of Activity Patient to Unit: ROPU Patient Condition: Good See PACS Report for procedural detail/treatment Drainage Procedure Procedure 1 Imaging Guidance: Fluoroscopy Side: Right (replace dislodged right nephrostomy) Procedure Type: Ureteral Stent Procedure: Placement (replaced dislo) Grant Perry MD Aug 29, 2017 15:28
--- NOTE | 2017-08-29 16:22 | RADRPT ---
EXAM DATE/TIME: 08/29/2017 15:36 [facility] COMPARISON: No previous studies available for comparison. INDICATIONS : Patient with history of hydronephrosis in need of nephroureteral catheter placement. MEDICAL HISTORY : Prostate cancer Diabetes HTN BPH SURGICAL HISTORY : Prostate needle biopsy Orchiectomy Cardiac stent Bilateral nephrostomy catheter ENCOUNTER: Subsequent ACUITY: >1 year PAIN SCORE: 4/10 LOCATION: Bilateral anterior rib pain FLUORO TIME: 6.5 minutes IMAGE SERIES: 2 SEDATION TIME: 30 minutes CONTRAST: 15 cc Omnipaque (iohexol) 350 MEDICATION(S): 1.) 250 mcg fentanyl (Sublimaze) IV 2.) 2 mg lorazepam (Ativan) IV DEVICE(S): 1.) 10 Djiboutian 22CM EXPEL nephroureteral stent PROCEDURE : 1. Ultrasound-guided puncture of the kidney. 2. Antegrade percutaneous pyelogram. 3. Percutaneous nephroureteral stent placement. 4. Conscious sedation with continuous EKG and oximetry monitoring. The risks, benefits and alternatives to the procedure were explained and verbal and written consent w as obtained. The site was prepped in sterile fashion. Full sterile technique was used, including ca p, mask, sterile gloves and gown and a large sterile sheet. Hand hygiene and 2% chlorhexidine and/or betadine/alcohol prep was utilized per protocol for cutaneous antisepsis. Sterile gel and sterile p robe cover were utilized for ultrasound guidance. The skin and subcutaneous tissues were infiltrated with local anesthetic solution. The previously placed nephroureteral stent was dislodged. Attempts were made at gaining access to the tract but this was unsuccessful. A fresh percutaneous nephrostomy and antegrade pyelogram was perfor med. A guidewire was manipulated into the bladder and over this the prescribed nephroureteral stent w as placed. Injection of positive contrast demonstrates good position. Conscious sedation was performed with the prescribed dosages and duration as above in the presence of an independent trained radiology nurse to assist in the monitoring of the patient. EKG and oximetry remained stable throughout the procedure. The patient tolerated the procedure well and there were n o complications. The patient was sent to post anesthesia recovery in stable condition. CONCLUSION: Uncomplicated nephroureteral stent placement as above. Grant Perry MD on August 29, 2017 at 16:18 Board Certified Radiologist. This report was verified electronically.
== END 2017-08-29 15:37 | disposition home or self-care (01) ==
LOC: HRIP 06:43 → HROP 06:43
DX: N13.30 Unspecified hydronephrosis (principal); T83.123A Displacement of other urinary stents, initial encounter; C61 Malignant neoplasm of prostate; C79.51 Secondary malignant neoplasm of bone; N40.0 Benign prostatic hyperplasia without lower urinary tract symptoms; E11.8 Type 2 diabetes mellitus with unspecified complications; I11.0 Hypertensive heart disease with heart failure; I50.22 Chronic systolic (congestive) heart failure; Z93.6 Other artificial openings of urinary tract status; Z01.818 Encounter for other preprocedural examination
CPT/HCPCS: 50433; 50434; 75984; 80048; 85025; 85610; 85730; 99152; 99153; C1729; C1769; C1887; C1894; C2617; J1170; J1956; J2060; J2250; J3010; J7030; Q9967

== ENCOUNTER 2017-10-05 22:17 | Inpatient (IN) | payer OTHER, MEDICARE ==
[~2017-10-05 22:17] MED LIST changes: -ASPI81TA23 PO; +CARV12.5 PO; -CORE25TA PO; -LANTINJ SQ; +LANTUS2P SQ; +LISI-515 PO; -LISI40TA PO; -PHEN-525 PO
[2017-10-05 22:49] VITALS: BP 96/52; PULSE 67; RESP 16; TEMP 97.9; O2SAT 92
[2017-10-05] MEDS ORDERED: SODIUM CHLOR 0.9% 1000 ML INJ 1,000 ML IV ONE (22:54)
[2017-10-05] MEDS ORDERED: SODIUM CHLORIDE 0.9% FLUSH 10 ML FLUSH IVF PRN (23:00)
[2017-10-05] MEDS ORDERED: HALO1TAB PO ×2 (23:06)
[2017-10-05] MEDS ORDERED: ALPR0.5T3 PO (23:06)
[2017-10-05] MEDS ORDERED: PROC10TA PO (23:06)
[2017-10-05] MEDS ORDERED: HYDR4TAB PO ×2 (23:06)
[2017-10-05] MEDS ORDERED: HYDR2TAB PO (23:06)
[2017-10-05] MEDS ORDERED: OMEP20TA93 PO (23:06)
[2017-10-05] MEDS ORDERED: SENN1TAB PO (23:06)
[2017-10-05] MEDS ORDERED: SUCR1TAB PO (23:06)
[2017-10-05] MEDS ORDERED: ESCI10TA PO (23:06)
[2017-10-05] MEDS ORDERED: MORP20SY PO (23:11)
[2017-10-05 23:13] VITALS: PULSE 67; RESP 16; O2SAT 95
[2017-10-05 23:25] VITALS: BP_SYST 101; BP_SYST 80; BP_SYST 87; BP_DIAS 52; BP_DIAS 59; RESP 16
--- NOTE | 2017-10-05 23:38 | RADRPT ---
EXAM DATE/TIME: 10/05/2017 23:02 [facility] COMPARISON: CT ABDOMEN & PELVIS W/O CONTRAST, June 19, 2017, 0:22. CHEST SINGLE AP, June 17, 2017, 14:11. INDICATIONS : Short of breath. MEDICAL HISTORY : Carcinoma, prostatic. SURGICAL HISTORY : None. ENCOUNTER: Initial ACUITY: 1 day PAIN SCORE: 0/10 LOCATION: Bilateral chest FINDINGS: Single AP view of the chest. Multiple sclerotic bone lesions are seen in the thoracic spine and bilat eral ribs. Lungs are clear. Ardiomediastinal silhouette within normal limits. No evidence of pleural effusion or pneumothorax. CONCLUSION: No acute cardiopulmonary disease identified. Multiple scattered sclerotic bone le sions again seen. Robert Hendrix MD on October 05, 2017 at 23:33 Board Certified Radiologist. This report was verified electronically.
[2017-10-05 23:48] LABS: BASOPHIL # 0.1 TH/MM3 (0-0.2); BASOPHIL % 0.6 % (0.0-2.0); EOSINOPHIL # 0.1 TH/MM3 (0-0.4); EOSINOPHIL % 0.8 % (0.0-4.0); HEMATOCRIT 31.9 % (39.0-51.0); HEMOGLOBIN 10.2 GM/DL (13.0-17.0); LYMPH % 7.6 % (9.0-44.0); MEAN CELL VOLUME 78.5 FL (80.0-100.0); MEAN CORPUSCULAR HGB CONC 31.8 % (32.0-36.0); MEAN PLATELET VOLUME 7.5 FL (7.0-11.0); MONO % 4.7 % (0.0-8.0); MONOCYTE # 0.6 TH/MM3 (0-0.9); NEUT % 86.3 % (16.0-70.0); PLATELET COUNT 404 TH/MM3 (150-450); RED BLOOD COUNT 4.07 MIL/MM3 (4.50-5.90); RED CELL DISTRIBUTION WIDTH 16.2 % (11.6-17.2); WHITE BLOOD COUNT 12.7 TH/MM3 (4.0-11.0)
[2017-10-05 23:49] VITALS: BP 121/63; PULSE 63; RESP 16; O2SAT 99
[2017-10-06 00:05] LABS: INTERNATIONAL NORMALIZED RATIO 1.2 RATIO; PROTHROMBIN TIME - PATIENT 11.9 SEC (9.8-11.6)
[2017-10-06 00:07] LABS: ALBUMIN 2.3 GM/DL (3.4-5.0); ALT (GPT) 11 U/L (12-78); AST (GOT) 20 U/L (15-37); BICARBONATE 27.2 MEQ/L (21.0-32.0); BLOOD UREA NITROGEN 23 MG/DL (7-18); CALCIUM 8.4 MG/DL (8.5-10.1); CHLORIDE 103 MEQ/L (98-107); CREATININE 1.49 MG/DL (0.60-1.30); GLOMERULAR FILTRATION RATE 48 ML/MIN (>89); GLUCOSE,RANDOM 113 MG/DL (74-106); MAGNESIUM 1.8 MG/DL (1.5-2.5); SODIUM (NA) 137 MEQ/L (136-145)
--- NOTE | 2017-10-06 00:09 | PD ---
HPI Chief Complaint: Syncope/Near-Syncope Time Seen by Provider: 22:46 Travel History International Travel<30 days: No Contact w/Intl Traveler<30days: No Traveled to known affect area: No History of Present Illness HPI Patient is 57-year-old male presenting to the emergency department for evaluation of a syncopal episode. Fall was unwitnessed, patient had blood in his ear. Per EMS report patient became dizzy and short of breath passed out. Patient is currently under hospice care for stage IV prostate cancer. He is currently denying any chest pain, headache, dizziness, shortness of breath. Per patient's report he had a fall yesterday as well. Patient is on narcotics for pain control as well as blood pressure medications. Symptom onset is unknown, is unknown what is exacerbating symptoms. PFSH Past Medical History Autoimmune Disease: No Anxiety: Yes Depression: No Cancer: Yes Cardiac Catheterization: Yes Cardiovascular Problems: Yes High Cholesterol: Yes Congestive Heart Failure: Yes Cerebrovascular Accident: No Diabetes: Yes Patient Takes Glucophage: No Diminished Hearing: No Endocrine: Yes Gastrointestinal Disorders: Yes (nausea vomiting ) Genitourinary: No Hypertension: Yes Immune Disorder: No Implanted Vascular Access Dvce: Yes Musculoskeletal: No Neurologic: Yes (Diabetic neuropathy) Psychiatric: Yes Reproductive: No Respiratory: Yes Migraines: No Radiation Therapy: No Seizures: No Thyroid Disease: No Past Surgical History Abdominal Surgery: No AICD: No Arteriovenous Shunt: No Body Medical Devices: cardiac stent Cardiac Surgery: Yes (Cardiac stent ) Coronary Stent: Yes (TIMES DEN LOCKE) Ear Surgery: No Endocrine Surgery: No Eye Surgery: No Genitourinary Surgery: No Gynecologic Surgery: No Insulin Pump: No Joint Replacement: No Oral Surgery: No Pacemaker: No Thoracic Surgery: No Other Surgery: Yes (TESTICULAR SX DUE TO CA) Social History Alcohol Use: No Tobacco Use: No Substance Use: No Allergies-Medications (Allergen,Severity, Reaction): Coded Allergies: glyburide (Verified Allergy, Severe, RASH, 10/05/17) amlodipine (Verified Allergy, Unknown, 10/05/17) rhabdomyolysis atorvastatin (Verified Allergy, Unknown, 10/05/17) rhabdomyolysis metformin (Verified Allergy, Unknown, Rash, 10/05/17) pravastatin (Verified Allergy, Unknown, 10/05/17) rhabdomyolysis simvastatin (Verified Allergy, Unknown, 10/05/17) rhabdomyolysis Reported Meds & Prescriptions Reported Meds & Active Scripts Active Hydrocodone-Acetaminophen 10-325 mg Tab 1 Tab PO Q6HR PRN Commode 3-in-1 (Device) 1 Mis Mis Ea .ROUTE DIRECTED Walker with Front Wheels (Device) 1 Mis Mis Ea .ROUTE DIRECTED Wheelchair (Device) 1 Mis Mis Ea .ROUTE DIRECTED Reported Morphine Sulfate 20 Mg/Ml Syringe 0.75-1 Ml PO Q4HR PRN Sucralfate 1 Gram Tab 1 Gm PO TID on empty stomach Haloperidol 1 Mg Tab 1 Mg PO Q4HR PRN Haloperidol 1 Mg Tab 1 Mg PO BID Hydromorphone (Hydromorphone HCl) 4 Mg Tab 6 Mg PO Q4HR PRN Hydromorphone (Hydromorphone HCl) 4 Mg Tab 4 Mg PO Q4H PRN Hydromorphone (Hydromorphone HCl) 2 Mg Tab 2 Mg PO Q4H PRN Senna-Plus (Sennosides-Docusate Sodium) 8.6-50 Mg Tab 3 Tab PO BID Prochlorperazine Maleate 10 Mg Tab 10 Mg PO Q4H PRN Omeprazole 20 Mg Tab 20 Mg PO BID Alprazolam 0.5 Mg Tab 0.5 Mg PO Q4H PRN Escitalopram (Escitalopram Oxalate) 10 Mg Tab 10 Mg PO DAILY Lisinopril 20 Mg Tab 20 Mg PO DAILY Lantus Inj (Insulin Glargine) 1,000 Unit/10 Ml Vial 15 Units SQ HS Coreg (Carvedilol) 12.5 Mg Tab 12.5 Mg PO BID Novolog Flexpen Inj (Insulin Aspart) 300 Unit/3 Ml Pen SQ TIDAC PER SLIDING SCALE Gabapentin 300 Mg Cap 300 Mg PO BID Flomax (Tamsulosin HCl) 0.4 Mg Cap 0.4 Mg PO HS Review of Systems Except as stated in HPI: all other systems reviewed are Neg Neurologic: Positive: Syncope Physical Exam Narrative GENERAL: Well-developed, well-nourished, alert male. Presenting in no acute distress. SKIN: Warm and dry. HEAD: Atraumatic. Normocephalic. EYES: Pupils equal and round. No scleral icterus. No injection or drainage. Conjunctiva pallor ENT: No nasal bleeding or discharge. Mucous membranes pink and moist. Bright red blood in left external ear canal, tympanic membrane is intact. Small abrasion to the 6 o'clock position in the ear canal NECK: Trachea midline. No JVD. CARDIOVASCULAR: Regular rate and rhythm. RESPIRATORY: No accessory muscle use. Clear to auscultation. Breath sounds equal bilaterally. GASTROINTESTINAL: Abdomen soft, non-tender, nondistended. Hepatic and splenic margins not palpable. MUSCULOSKELETAL: Extremities without clubbing, cyanosis, or edema. No obvious deformities. NEUROLOGICAL: Awake and alert. No obvious cranial nerve deficits. Motor grossly within normal limits. Five out of 5 muscle strength in the arms and legs. Normal speech. PSYCHIATRIC: Appropriate mood and affect; insight and judgment normal. Data Data Last Documented VS Vital Signs Date Time Temp Pulse Resp B/P (MAP) Pulse Ox O2 Delivery O2 Flow Rate FiO2 10/06/17 01:38 66 16 169/77 (107) 99 Nasal Cannula 2.00 10/05/17 22:49 97.9 Orders Orders Electrocardiogram (10/05/17 22:54) Complete Blood Count With Diff (10/05/17 22:54) Comprehensive Metabolic Panel (10/05/17 22:54) Magnesium (Mg) (10/05/17 22:54) Ckmb (Isoenzyme) Profile (10/05/17 22:54) Troponin I (10/05/17 22:54) Act Partial Throm Time (Ptt) (10/05/17 22:54) Prothrombin Time / Inr (Pt) (10/05/17 22:54) Urinalysis - C+S If Indicated (10/05/17 22:54) Chest, Single Ap (10/05/17 22:54) Ct Brain W/O Iv Contrast(Rout) (10/05/17 22:54) Ct Cerv Spine W/O Contrast (10/05/17 22:54) Ecg Monitoring (10/05/17 22:54) Iv Access Insert/Monitor (10/05/17 22:54) Oximetry (10/05/17 22:54) Sodium Chloride 0.9% Flush (Ns Flush) (10/05/17 23:00) Sodium Chlor 0.9% 1000 Ml Inj (Ns 1000 M (10/05/17 22:54) Orthostatic Vital Signs (10/05/17 22:54) Ct Pulmonary Angiogram (10/06/17 ) Urine Culture (10/05/17 ) Ceftriaxone Inj (Rocephin Inj) (10/06/17 00:45) Sodium Chlor 0.9% 1000 Ml Inj (Ns 1000 M (10/06/17 01:15) Lactic Acid (10/06/17 01:04) Blood Culture (10/06/17 01:04) Admit Order (Ed Use Only) (10/06/17 01:45) Labs Laboratory Tests Test 10/05/17 00:00 10/05/17 23:30 Urine Color YELLOW Urine Turbidity CLOUDY Urine pH 5.5 Urine Specific [place] 1.014 Urine Protein 100 mg/dL Urine Glucose (UA) NEG mg/dL Urine Ketones NEG mg/dL Urine Occult Blood SMALL Urine Nitrite NEG Urine Bilirubin NEG Urine Urobilinogen LESS THAN 2.0 MG/DL Urine Leukocyte Esterase LARGE Urine RBC 26 /hpf Urine WBC 44 /hpf Urine Amorphous Sediment RARE Urine Bacteria RARE /hpf Urine Hyaline Casts 5 /lpf Urine Mucus FEW /lpf Microscopic Urinalysis Comment CULTURE INDICATED White Blood Count 12.7 TH/MM3 Red Blood Count 4.07 MIL/MM3 Hemoglobin 10.2 GM/DL Hematocrit 31.9 % Mean Corpuscular Volume 78.5 FL Mean Corpuscular Hemoglobin 25.0 PG Mean Corpuscular Hemoglobin Concent 31.8 % Red Cell Distribution Width 16.2 % Platelet Count 404 TH/MM3 Mean Platelet Volume 7.5 FL Neutrophils (%) (Auto) 86.3 % Lymphocytes (%) (Auto) 7.6 % Monocytes (%) (Auto) 4.7 % Eosinophils (%) (Auto) 0.8 % Basophils (%) (Auto) 0.6 % Neutrophils # (Auto) 11.0 TH/MM3 Lymphocytes # (Auto) 1.0 TH/MM3 Monocytes # (Auto) 0.6 TH/MM3 Eosinophils # (Auto) 0.1 TH/MM3 Basophils # (Auto) 0.1 TH/MM3 CBC Comment DIFF FINAL Differential Comment Prothrombin Time 11.9 SEC Prothromb Time International Ratio 1.2 RATIO Activated Partial Thromboplast Time 26.7 SEC Blood Urea Nitrogen 23 MG/DL Creatinine 1.49 MG/DL Random Glucose 113 MG/DL Total Protein 7.8 GM/DL Albumin 2.3 GM/DL Calcium Level 8.4 MG/DL Magnesium Level 1.8 MG/DL Alkaline Phosphatase 141 U/L Aspartate Amino Transf (AST/SGOT) 20 U/L Alanine Aminotransferase (ALT/SGPT) 11 U/L Total Bilirubin 0.4 MG/DL Sodium Level 137 MEQ/L Potassium Level 4.7 MEQ/L Chloride Level 103 MEQ/L Carbon Dioxide Level 27.2 MEQ/L Anion Gap 7 MEQ/L Estimat Glomerular Filtration Rate 48 ML/MIN Total Creatine Kinase 60 U/L Troponin I LESS THAN 0.02 NG/ML MDM Medical Decision Making Medical Screen Exam Complete: Yes Emergency Medical Condition: Yes Interpretation(s) Last Impressions Head CT 10/05/172253 Signed Impressions: Service Date/Time: Friday, October 06, 2017 00:03 - CONCLUSION: Small amount of acute subarachnoid hemorrhage and a right-sided frontoparietal sulcus. No evidence of mass effect or midline shift. No other acute intracranial findings. Robert Hendrix MD Chest X-Ray 10/05/172253 Signed Impressions: Service Date/Time: Thursday, October 05, 2017 23:02 - CONCLUSION: No acute cardiopulmonary disease identified. Multiple scattered sclerotic bone lesions again seen. Robert Hendrix MD Laboratory Tests Test 10/05/17 00:00 10/05/17 23:30 Urine Color YELLOW Urine Turbidity CLOUDY Urine pH 5.5 Urine Specific [place] 1.014 Urine Protein 100 mg/dL Urine Glucose (UA) NEG mg/dL Urine Ketones NEG mg/dL Urine Occult Blood SMALL Urine Nitrite NEG Urine Bilirubin NEG Urine Urobilinogen LESS THAN 2.0 MG/DL Urine Leukocyte Esterase LARGE Urine RBC 26 /hpf Urine WBC 44 /hpf Urine Amorphous Sediment RARE Urine Bacteria RARE /hpf Urine Hyaline Casts 5 /lpf Urine Mucus FEW /lpf Microscopic Urinalysis Comment CULTURE INDICATED White Blood Count 12.7 TH/MM3 Red Blood Count 4.07 MIL/MM3 Hemoglobin 10.2 GM/DL Hematocrit 31.9 % Mean Corpuscular Volume 78.5 FL Mean Corpuscular Hemoglobin 25.0 PG Mean Corpuscular Hemoglobin Concent 31.8 % Red Cell Distribution Width 16.2 % Platelet Count 404 TH/MM3 Mean Platelet Volume 7.5 FL Neutrophils (%) (Auto) 86.3 % Lymphocytes (%) (Auto) 7.6 % Monocytes (%) (Auto) 4.7 % Eosinophils (%) (Auto) 0.8 % Basophils (%) (Auto) 0.6 % Neutrophils # (Auto) 11.0 TH/MM3 Lymphocytes # (Auto) 1.0 TH/MM3 Monocytes # (Auto) 0.6 TH/MM3 Eosinophils # (Auto) 0.1 TH/MM3 Basophils # (Auto) 0.1 TH/MM3 CBC Comment DIFF FINAL Differential Comment Prothrombin Time 11.9 SEC Prothromb Time International Ratio 1.2 RATIO Activated Partial Thromboplast Time 26.7 SEC Blood Urea Nitrogen 23 MG/DL Creatinine 1.49 MG/DL Random Glucose 113 MG/DL Total Protein 7.8 GM/DL Albumin 2.3 GM/DL Calcium Level 8.4 MG/DL Magnesium Level 1.8 MG/DL Alkaline Phosphatase 141 U/L Aspartate Amino Transf (AST/SGOT) 20 U/L Alanine Aminotransferase (ALT/SGPT) 11 U/L Total Bilirubin 0.4 MG/DL Sodium Level 137 MEQ/L Potassium Level 4.7 MEQ/L Chloride Level 103 MEQ/L Carbon Dioxide Level 27.2 MEQ/L Anion Gap 7 MEQ/L Estimat Glomerular Filtration Rate 48 ML/MIN Total Creatine Kinase 60 U/L Troponin I LESS THAN 0.02 NG/ML Vital Signs Date Time Temp Pulse Resp B/P (MAP) Pulse Ox O2 Delivery O2 Flow Rate FiO2 10/05/17 23:49 63 16 121/63 (82) 99 Nasal Cannula 2.00 10/05/17 23:25 67 16 101/59 (73) 66 16 87/52 (64) 64 16 80/52 (61) 10/05/17 23:13 67 16 95 Nasal Cannula 2.00 10/05/17 23:13 16 95 Nasal Cannula 2.00 10/05/17 22:49 97.9 67 16 96/52 (67) 92 Differential Diagnosis Metabolic abnormality versus cardiac arrhythmia versus medication side effects versus vasovagal episode versus orthostatic hypotension versus pulmonary embolism versus other Narrative Course Patient is a 57-year-old male presenting to the emergency department for evaluation after an unwitnessed syncopal episode that resulted in head injury. Patient is hypotensive on arrival, he does not remember events surrounding the fall. He is currently on hospice for stage IV prostate cancer with metastatic disease. Labs and imaging ordered and pending. CBC with a mild anemia with a hemoglobin of 10.2, this is stable when compared to prior August 2017. WBC 12.7 with left shift. Chemistry with a BUN and creatinine 23/1.49, this is also stable when compared to prior. Urinalysis is consistent with UTI, reflex culture pending. Patient was given Rocephin IV. He also received 1 L of IV fluids. Orthostatic vital signs are positive. CT the brain shows a small amount of acute subarachnoid hemorrhage. This was discussed with Dr. Carey who recommended patient be placed in [facility]. Chest x-ray shows no acute disease, multiple scattered sclerotic bone lesions are again seen. Patient was given an additional liter of IV fluids, lactic acid and blood cultures are ordered and pending. Patient was also seen and evaluated by my attending physician. Please see her note. Patient will be admitted to [facility], discussed with Dr. Baltazar who accepted admission. Diagnosis Primary Impression: Subarachnoid hemorrhage Additional Impressions: UTI (urinary tract infection) Qualified Codes: N39.0 - Urinary tract infection, site not specified; R31.9 - Hematuria, unspecified Orthostatic hypotension Prostate cancer metastatic to multiple sites Fall Qualified Codes: W19.XXXA - Unspecified fall, initial encounter Admitting Information Admitting Physician Requests: Admit Condition: Stable Yulissa Orlando Oct 06, 2017 00:09
[2017-10-06 00:23] LABS: ALKALINE PHOSPHATASE 141 U/L (45-117); TOTAL BILIRUBIN ADULT 0.4 MG/DL (0.2-1.0); TOTAL PROTEIN 7.8 GM/DL (6.4-8.2); TROPONIN I LESS THAN 0.02 NG/ML (0.02-0.05)
--- NOTE | 2017-10-06 00:28 | RADRPT ---
EXAM DATE/TIME: 10/06/2017 00:03 [facility] COMPARISON: CT BRAIN W/O CONTRAST, February 17, 2017, 8:37. INDICATIONS : Trauma, fall. RADIATION DOSE: 44.73 CTDIvol (mGy) MEDICAL HISTORY : None SURGICAL HISTORY : None. ENCOUNTER: Initial ACUITY: 1 day PAIN SCALE: 5/10 LOCATION: cranial TECHNIQUE: Multiple contiguous axial images were obtained of the head. Using automated exposure control and adj ustment of the mA and/or kV according to patient size, radiation dose was kept as low as reasonably a chievable to obtain optimal diagnostic quality images. DICOM format image data is available electro nically for review and comparison. FINDINGS: CEREBRUM: Linear hyperdensity is seen in a right frontoparietal sulcus indicating acute subarachnoid hemorrhage . No mass effect or midline shift. Ventricles within normal limits. No other acute hemorrhage identif ied. No evidence of acute infarct. No evidence of fracture. POSTERIOR FOSSA: The cerebellum and brainstem are intact. The 4th ventricle is midline. The cerebellopontine angle i s unremarkable. EXTRACRANIAL: The visualized portion of the orbits is intact. SKULL: The calvaria is intact. No evidence of skull fracture. CONCLUSION: Small amount of acute subarachnoid hemorrhage and a right-sided frontoparietal sulcus. No evidence o f mass effect or midline shift. No other acute intracranial findings. Robert Hendrix MD on October 06, 2017 at 0:18 Board Certified Radiologist. This report was verified electronically.
[2017-10-06 00:33] LABS: AMORPHOUS SEDIMENT, URINE RARE; BACTERIA, URINE RARE /hpf; BILIRUBIN, URINE NEG (NEG); BLOOD, URINE SMALL (NEG); GLUCOSE,URINE NEG (NEG); HYALINE CAST, URINE 5 /lpf (RARE); KETONE, URINE NEG (NEG); MUCUS URINE FEW /lpf (OCC); NITRITE,URINE NEG (NEG); PH, URINE 5.5 (5.0-8.5); URINE COLOR YELLOW (YELLW/STRAW); URINE LEUKOCYTE ESTERASE LARGE (NEG)
[2017-10-06] MEDS ORDERED: cefTRIAXone INJ 2,000 MG in SODIUM CHLORIDE 0.9% INJ 100 ML IV ONE (00:45)
--- NOTE | 2017-10-06 00:54 | RADRPT ---
EXAM DATE/TIME: 10/06/2017 00:03 [facility] COMPARISON: CT BRAIN W/O CONTRAST, October 06, 2017, 0:03. INDICATIONS : Trauma, fall. RADIATION DOSE: 21.44 CTDIvol (mGy) MEDICAL HISTORY : Carcinoma, prostate. Carcinoma, testicular. SURGICAL HISTORY : None. ENCOUNTER: Initial ACUITY: 1 day PAIN SCALE: 5/10 LOCATION: neck TECHNIQUE: Volumetric scanning of the cervical spine was performed. Multiplanar reconstructions in the sagittal, coronal and oblique axial planes were performed. Using automated exposure control and adjustment o f the mA and/or kV according to patient size, radiation dose was kept as low as reasonably achievable to obtain optimal diagnostic quality images. DICOM format image data is available electronically f or review and comparison. FINDINGS: VERTEBRAE: Diffuse sclerosis of the T2 vertebral body. Multiple sclerotic bone lesions in the posterior elements of T1 and T2. Sclerotic bone lesion in the right-sided inferior articular facet of C5. Findings are consistent with bony metastatic disease. Bony fusion of the C7 and T1 vertebral bodies. Alignment wit hin normal limits. No evidence of fracture. ALIGNMENT: No evidence of subluxation. C2-C3: The bony spinal canal is normal in size. No evidence of disc bulge or herniation. The neural forami na are bilaterally patent. C3-C4: Prominent right substantive arthrosis. No evidence of focal disc protrusion. Central canal normal cristela meter. Neural foraminal diameters within normal limits. C4-C5: Prominent right-sided facet arthrosis. Broad-based disc osteophyte complex. Mild right neural foramin al narrowing. Central canal diameter within normal limits. C5-C6: Broad-based disc osteophyte complex. Mild narrowing of the left-sided central canal and moderate left neural foraminal narrowing. Mild right neural foraminal narrowing. C6-C7: Broad-based disc osteophyte complex with mild narrowing of the left side of the central canal and mod erate narrowing of the left neural foramen. C7-T1: The bony spinal canal is normal in size. No evidence of disc bulge or herniation. The neural forami na are bilaterally patent. CONCLUSION: 1. No evidence of cervical spine fracture. 2. There is fluid seen within multiple left-sided mastoid air cells. Small amount of fluid is also se en in the external auditory canal on the left. Correlation with head CT shows a small amount of intra cranial air in the left parietal region adjacent to the mastoid air cells. There is also a small amou nt of air in the anterior frontal region on the left. A discrete fracture line is not seen on the hea d CT or cervical spine CT images. Constellation of findings is suspicious for an occult nondisplaced fracture through the left mastoid air cells/temporal bone. 3. Multilevel degenerative findings of the cervical spine. 4. Scattered sclerotic bony metastasis. 5. Fusion of the C7 and T1 vertebral bodies. Robert Hendrix MD on October 06, 2017 at 0:43 Board Certified Radiologist. This report was verified electronically.
--- NOTE | 2017-10-06 01:05 | PD ---
Physical Exam Date Seen by Provider: Oct 06, 2017 Time Seen by Provider: 00:54 Narrative 57-year-old male patient with multiple medical complaints including stage IV prostate cancer and a hospice patient but full code apparently has been out of balance for past few days. Patient says that he fell and hit his head probably couple days ago. He has been having some left ear issues. His hospice nurse called today and said that he should go to the emergency room to be checked out. Hence he was brought in. Patient came in with a c-collar because of the history of fall. My nurse practitioner is seeing him and I am supervising her. Blood test and CAT scan was ordered. The CAT scan shows a small subarachnoid hemorrhage. She spoke with the neurosurgeon who recommends patient to be in [facility]SC. Patient was also positive orthostatics. She is giving IV fluid bolus. Patient also has a UTI. Lactic acid and blood culture has been ordered. Awaiting for the lifter/driver to call back. There is an order for CT pulmonary angiogram pending to rule out any PE as a cause of his possible syncope. Patient otherwise is awake and answering questions appropriately. Data Data Last Documented VS Vital Signs Date Time Temp Pulse Resp B/P (MAP) Pulse Ox O2 Delivery O2 Flow Rate FiO2 10/06/17 01:38 66 16 169/77 (107) 99 Nasal Cannula 2.00 10/05/17 22:49 97.9 Orders Orders Electrocardiogram (10/05/17 22:54) Complete Blood Count With Diff (10/05/17 22:54) Comprehensive Metabolic Panel (10/05/17 22:54) Magnesium (Mg) (10/05/17 22:54) Ckmb (Isoenzyme) Profile (10/05/17 22:54) Troponin I (10/05/17 22:54) Act Partial Throm Time (Ptt) (10/05/17 22:54) Prothrombin Time / Inr (Pt) (10/05/17 22:54) Urinalysis - C+S If Indicated (10/05/17 22:54) Chest, Single Ap (10/05/17 22:54) Ct Brain W/O Iv Contrast(Rout) (10/05/17 22:54) Ct Cerv Spine W/O Contrast (10/05/17 22:54) Ecg Monitoring (10/05/17 22:54) Iv Access Insert/Monitor (10/05/17 22:54) Oximetry (10/05/17 22:54) Sodium Chloride 0.9% Flush (Ns Flush) (10/05/17 23:00) Sodium Chlor 0.9% 1000 Ml Inj (Ns 1000 M (10/05/17 22:54) Orthostatic Vital Signs (10/05/17 22:54) Ct Pulmonary Angiogram (10/06/17 ) Urine Culture (10/05/17 ) Ceftriaxone Inj (Rocephin Inj) (10/06/17 00:45) Sodium Chlor 0.9% 1000 Ml Inj (Ns 1000 M (10/06/17 01:15) Lactic Acid (10/06/17 01:04) Blood Culture (10/06/17 01:04) Admit Order (Ed Use Only) (10/06/17 01:45) Labs Laboratory Tests Test 10/05/17 00:00 10/05/17 23:30 10/06/17 01:35 Urine Color YELLOW Urine Turbidity CLOUDY Urine pH 5.5 Urine Specific [place] 1.014 Urine Protein 100 mg/dL Urine Glucose (UA) NEG mg/dL Urine Ketones NEG mg/dL Urine Occult Blood SMALL Urine Nitrite NEG Urine Bilirubin NEG Urine Urobilinogen LESS THAN 2.0 MG/DL Urine Leukocyte Esterase LARGE Urine RBC 26 /hpf Urine WBC 44 /hpf Urine Amorphous Sediment RARE Urine Bacteria RARE /hpf Urine Hyaline Casts 5 /lpf Urine Mucus FEW /lpf Microscopic Urinalysis Comment CULTURE INDICATED White Blood Count 12.7 TH/MM3 Red Blood Count 4.07 MIL/MM3 Hemoglobin 10.2 GM/DL Hematocrit 31.9 % Mean Corpuscular Volume 78.5 FL Mean Corpuscular Hemoglobin 25.0 PG Mean Corpuscular Hemoglobin Concent 31.8 % Red Cell Distribution Width 16.2 % Platelet Count 404 TH/MM3 Mean Platelet Volume 7.5 FL Neutrophils (%) (Auto) 86.3 % Lymphocytes (%) (Auto) 7.6 % Monocytes (%) (Auto) 4.7 % Eosinophils (%) (Auto) 0.8 % Basophils (%) (Auto) 0.6 % Neutrophils # (Auto) 11.0 TH/MM3 Lymphocytes # (Auto) 1.0 TH/MM3 Monocytes # (Auto) 0.6 TH/MM3 Eosinophils # (Auto) 0.1 TH/MM3 Basophils # (Auto) 0.1 TH/MM3 CBC Comment DIFF FINAL Differential Comment Prothrombin Time 11.9 SEC Prothromb Time International Ratio 1.2 RATIO Activated Partial Thromboplast Time 26.7 SEC Blood Urea Nitrogen 23 MG/DL Creatinine 1.49 MG/DL Random Glucose 113 MG/DL Total Protein 7.8 GM/DL Albumin 2.3 GM/DL Calcium Level 8.4 MG/DL Magnesium Level 1.8 MG/DL Alkaline Phosphatase 141 U/L Aspartate Amino Transf (AST/SGOT) 20 U/L Alanine Aminotransferase (ALT/SGPT) 11 U/L Total Bilirubin 0.4 MG/DL Sodium Level 137 MEQ/L Potassium Level 4.7 MEQ/L Chloride Level 103 MEQ/L Carbon Dioxide Level 27.2 MEQ/L Anion Gap 7 MEQ/L Estimat Glomerular Filtration Rate 48 ML/MIN Total Creatine Kinase 60 U/L Troponin I LESS THAN 0.02 NG/ML Lactic Acid Level 1.2 mmol/L MDM Supervised Visit with ADAM: No Critical Care Narrative Aggregate critical care time was 30 minutes. Time to perform other separately billable procedures was not included in the critical care time. My time did not include minutes spent treating any other patients simultaneously or on activities that did not directly contribute to the patient's treatment. The services I provided to this patient were to treat and/or prevent clinically significant deterioration that could result in: Intracranial bleed, syncope, orthostatic hypotension, fluid resuscitation I provided critical care services requiring my management, as noted below: Chart data review, documentation time, medication orders and management, vital sign assessments/reviewing monitor data, ordering and reviewing lab tests, ordering and interpreting/reviewing x-rays and diagnostic studies, care of the patient and discussion of the patient with the admitting physicians. Diagnosis Primary Impression: Subarachnoid hemorrhage Additional Impressions: Prostate cancer metastatic to multiple sites Orthostatic hypotension UTI (urinary tract infection) Qualified Codes: N39.0 - Urinary tract infection, site not specified; R31.9 - Hematuria, unspecified Fall Qualified Codes: W19.XXXA - Unspecified fall, initial encounter Condition: Lola Whyte MD Oct 06, 2017 01:05
[2017-10-06] MEDS ORDERED: SODIUM CHLOR 0.9% 1000 ML INJ 1,000 ML IV ONE (01:15)
[2017-10-06 01:38] VITALS: BP 169/77; PULSE 66; RESP 16; O2SAT 99
--- NOTE | 2017-10-06 02:40 | HHI.HP ---
HPI Service Critical Care Medicine Primary Care Physician Unknown Admission Diagnosis SUBARACHNOID hemorrhage, UTI, FALL Diagnosis: Travel History International Travel<30 Days: No Contact w/Intl Traveler <30 Da: No Traveled to Known Affected Are: No Sepsis Criteria SIRS Criteria (2 or more): WBC > 02514, < 4000 or > 10% bands History of Present Illness 57 yo male with past medical history of type 1 diabetes mellitus mellitus diagnosed at age 5, chronic systolic heart failure, hypertension, hyperlipidemia. He was diagnosed with prostate cancer in July 2016 and has known bony metastatic disease. He underwent cystoscopy and palliative transurethral partial resection of bladder mass 06/15/[address] Gutierrez. He has bilateral nephrostomy tubes placed by invasive radiology 06/15/18 due to severe hydronephrosis with unsuccessful ureteral catheter placement by urology. He has been evaluated by oncology and palliative chemotherapy was recommended. Patient was not capacitated at that time for medical decision- making due to delirium. His daughter and ex- were making decisions on his behalf and opted against palliative chemo due to a long history of noncompliance. Appears he left AMA last admission. He has been enrolled in hospice care, though patient states he may consider surgery upon followup with Dr. Sepulveda 10/22. Today he presents to [facility] after a fall. He states on 10/04/16 he got up to get a roll of toilet paper and felt lightheaded and fell hitting his head on the left side. He denies loss of consciousness. He had an additional fall today and the hospice nurse recommended he come in for evaluation. His blood pressure in the ED was 96/52 on arrival and he was orthostatic with standing. He was given 1 L normal saline bolus and subsequent blood pressures have been normal. Patient states he has had decreased appetite over the last couple of days and thought he might have had a URI and that his left ear "was stopped up". He had poor po intake. He denies fever, back pain (except for baseline), nausea, vomiting, headache, abdominal pain, diarrhea, cough, chest pain, or palpitations. CT demonstrated small amount of right frontoparietal subarachnoid hemorrhage. He is not on any anticoagulants or antiplatelet therapy. [facility] has been consulted for admission. Review of Systems ROS Limitations: Clinical Condition, Altered Mental Status Past Family Social History Allergies: Coded Allergies: glyburide (Verified Allergy, Severe, RASH, 10/05/17) amlodipine (Verified Allergy, Unknown, 10/05/17) rhabdomyolysis atorvastatin (Verified Allergy, Unknown, 10/05/17) rhabdomyolysis metformin (Verified Allergy, Unknown, Rash, 10/05/17) pravastatin (Verified Allergy, Unknown, 10/05/17) rhabdomyolysis simvastatin (Verified Allergy, Unknown, 10/05/17) rhabdomyolysis Past Medical History Hypertension Type 1 diabetes mellitus Stage IV metastatic prostate cancer Chronic pain BPH GI bleed due to duodenal ulcer in June 2017 Past Surgical History Left orchiectomy Reported Medications Flomax 0.4 mg by mouth daily at bedtime Coreg 12.5 mill grams by mouth twice a day Lisinopril 20 mg by mouth daily Lortab 10/325 one tab by mouth every 6 hours Hydromorphone 2-6 mg by mouth every 4 hours Gabapentin 3 mg by mouth twice a day Escitalopram 10 mill grams by mouth daily Haldol 1 mg by mouth twice a day Haldol 1 mg by mouth every 4 hours as needed Xanax 0.5 mg by mouth every 4 hours as needed for anxiety Senna +3 tabs by mouth twice a day Carafate 1 g by mouth 3 times a day Omeprazole 20 mg by mouth twice a day Lantus 15 units subcutaneous daily at bedtime NovoLogtid 1 Family History He states he helps care for his mother who is still living His father of pancreatic cancer at age 59 He has no siblings Social History Lifetime non-smoker Does not drink alcohol States he recently adopted a 3-year-old son and he has twin daughters 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 SKIN: Warm and dry, well perfused HEAD: Normocephalic. EYES: Pupils equal and round, 2 mm and reactive bilaterally.. No scleral icterus. No injection or drainage. ENT: No nasal bleeding or discharge. Mucous membranes dry. There is some blood in the external auditory canal on the left. Tympanic membrane is intact with no effusion. No hemotympanum. NECK: Trachea midline. No JVD. CARDIOVASCULAR: Regular rate and rhythm. No murmurs rubs or gallops. RESPIRATORY: No accessory muscle use. Clear to auscultation. Breath sounds equal bilaterally. On room air. Breathing comfortably. GASTROINTESTINAL: Abdomen soft, non-tender, nondistended. Bilateral nephrostomy tubes in place. Dressing is clean dry and intact. There is no tenderness or drainage noted. R nephrostomy output light feliciano. L nephrostomy output yellow. MUSCULOSKELETAL: Extremities without clubbing, cyanosis, or edema. No obvious deformities. NEUROLOGICAL: Awake and alert. Oriented to self, [facility]. Was not oriented to year. No obvious cranial nerve deficits. Extraocular movements intact with no nystagmus. Normal speech. Strength 5 out of 5 in all extremities. Laboratory Laboratory Tests Test 10/05/17 23:30 10/06/17 01:35 White Blood Count 12.7 Red Blood Count 4.07 Hemoglobin 10.2 Hematocrit 31.9 Mean Corpuscular Volume 78.5 Mean Corpuscular Hemoglobin 25.0 Mean Corpuscular Hemoglobin Concent 31.8 Red Cell Distribution Width 16.2 Platelet Count 404 Mean Platelet Volume 7.5 Neutrophils (%) (Auto) 86.3 Lymphocytes (%) (Auto) 7.6 Monocytes (%) (Auto) 4.7 Eosinophils (%) (Auto) 0.8 Basophils (%) (Auto) 0.6 Neutrophils # (Auto) 11.0 Lymphocytes # (Auto) 1.0 Monocytes # (Auto) 0.6 Eosinophils # (Auto) 0.1 Basophils # (Auto) 0.1 CBC Comment DIFF FINAL Differential Comment Prothrombin Time 11.9 Prothromb Time International Ratio 1.2 Activated Partial Thromboplast Time 26.7 Blood Urea Nitrogen 23 Creatinine 1.49 Random Glucose 113 Total Protein 7.8 Albumin 2.3 Calcium Level 8.4 Magnesium Level 1.8 Alkaline Phosphatase 141 Aspartate Amino Transf (AST/SGOT) 20 Alanine Aminotransferase (ALT/SGPT) 11 Total Bilirubin 0.4 Sodium Level 137 Potassium Level 4.7 Chloride Level 103 Carbon Dioxide Level 27.2 Anion Gap 7 Estimat Glomerular Filtration Rate 48 Total Creatine Kinase 60 Troponin I LESS THAN 0.02 Date/Time Source Procedure Growth Status 10/06/17 01:35 Blood Peripheral Aerobic Blood Culture Pending Received 10/06/17 01:35 Blood Peripheral Anaerobic Blood Culture Pending Received 10/05/17 00:00 Urine Random Urine Urine Culture Pending Received Result Diagram: 10/05/17232910/05/172329 Caprini VTE Risk Assessment Caprini VTE Risk Assessment: Mod/High Risk (score >= 2) VTE Pharm Contraindication: Intracranial lesions Caprini Risk Assessment Model Point Value = 1 Point Value = 2 Point Value = 3 Point Value = 5 Age 41-60 Minor surgery BMI > 25 kg/m2 Swollen legs Varicose veins or History of unexplained or recurrent spontaneous Oral contraceptives or hormone replacement Sepsis (< 1 month) Serious lung disease, including pneumonia (< 1 month) Abnormal pulmonary function Acute myocardial infarction Congestive heart failure (< 1 month) History of inflammatory bowel disease Medical patient at bed rest Age 61-74 Arthroscopic surgery Major open surgery (> 45 min) Laparoscopic surgery (> 45 min) Malignancy Confined to bed (> 72 hours) Immobilizing plaster cast Central venous access Age >= 75 History of VTE Family history of VTE Factor V Leiden Prothrombin [id number] Lupus anticoagulant Anticardiolipin antibodies Elevated serum homocysteine Heparin-induced thrombocytopenia Other congenital or acquired thrombophilia Stroke (< 1 month) Elective arthroplasty Hip, pelvis, or leg fracture Acute spinal cord injury (< 1 month) Prophylaxis Regimen Total Risk Factor Score Risk Level Prophylaxis Regimen 0-1 Low Early ambulation 2 Moderate Order ONE of the following: *Sequential Compression Device (SCD) *Heparin 5000 units SQ BID 3-4 Higher Order ONE of the following medications: *Heparin 5000 units SQ TID *Enoxaparin/Lovenox 40 mg SQ daily (WT < 150 kg, CrCl > 30 mL/min) *Enoxaparin/Lovenox 30 mg SQ daily (WT < 150 kg, CrCl > 10-29 mL/min) *Enoxaparin/Lovenox 30 mg SQ BID (WT < 150 kg, CrCl > 30 mL/min) AND/OR *Sequential Compression Device (SCD) 5 or more Highest Order ONE of the following medications: *Heparin 5000 units SQ TID (Preferred with Epidurals) *Enoxaparin/Lovenox 40 mg SQ daily (WT < 150 kg, CrCl > 30 mL/min) *Enoxaparin/Lovenox 30 mg SQ daily (WT < 150 kg, CrCl > 10-29 mL/min) *Enoxaparin/Lovenox 30 mg SQ BID (WT < 150 kg, CrCl > 30 mL/min) AND *Sequential Compression Device (SCD) Assessment and Plan Problem List: (1) Fall ICD Code: W19.XXXA - Unspecified fall, initial encounter Status: Acute (2) SAH (subarachnoid hemorrhage) ICD Code: I60.9 - Nontraumatic subarachnoid hemorrhage, unspecified Status: Acute (3) Prostate cancer metastatic to bone ICD Code: C61 - Malignant neoplasm of prostate; C79.51 - Secondary malignant neoplasm of bone Status: Chronic (4) Hypertension ICD Code: I10 - Essential (primary) hypertension Status: Chronic (5) CAD (coronary artery disease) ICD Code: I25.10 - Atherosclerotic heart disease of [place] coronary artery without angina pectoris Status: Chronic (6) HLD (hyperlipidemia) ICD Code: E78.5 - Hyperlipidemia, unspecified Status: Chronic (7) Chronic systolic heart failure ICD Code: I50.22 - Chronic systolic (congestive) heart failure Status: Chronic (8) DM (diabetes mellitus) ICD Code: E11.9 - Type 2 diabetes mellitus without complications Status: Chronic (9) MIRYAM (acute kidney injury) ICD Code: N17.9 - Acute kidney failure, unspecified (10) Orthostasis ICD Code: I95.1 - Orthostatic hypotension Status: Acute Assessment and Plan NEURO: Fall Small right frontoparietal traumatic subarachnoid hemorrhage Small pneumocephalus with possible occult nondisplaced skull fracture Chronic pain secondary to prostate cancer with skeletal metastases Follow-up CT in a.m. If stable can be transferred to the floor. Neurochecks in ISC Continue escitalopram 10 mg by mouth daily Lortab 10 as needed for pain. Dilaudid as needed for breakthrough pain. Continue Neurontin 300 po bid. NSG consulted. RESP: On room air CTA performed in ED negative for PE. CV: Orthostatic hypotension, likely secondary to volume depletion. Improved Coronary artery disease with prior stenting 2007 Hypertension Hyperlipidemia chronic systolic heart failure Hold Coreg 12.5 po bid due to hypotension. Orthostatic hypotension improved after total 2 L in the ED. NS50 mL/hr and then KVO when diet starts. GI: h/o duodenal ulcer and gastritis 1999 ADA Continue carafate FEN/RENAL: recent MIRYAM secondary to obstructive uropathy, improving Metastatic prostate cancer Now s/p cystoscopy and transurethral resection of bladder tumor 06/15/[address] Gutierrez. Unsuccessful nephrostomy tubes in OR 06/15/17. Placed bilateral nephrostomy tubes in IR 06/15/17. L was exchanged in IR 06/19/17. R dislodged nephrostomy replaced 08/29 and L exchanged by Dr. Perry. Creatinine downtrended. Today 1.49 with prior on 08/29. Tubes appear to be draining well and creatinine relatively stable so tubes appear to be functioning properly. Will f/u renal u/s. Dr. Sepulveda is his primary urologist and patient states he has followup 10/22 with him. Hold flomax due to hypotension. ID: ?[id number] Has leukocytosis. U/a with large LE and rare bacterial but discussed with ED RN and this was collected from the bag of the L nephrostomy tube. The first culture was from this specimen and therefore could end up resulting positive due to colonization. Will recollect sample from nephrostomy tube bilaterally and will f/u blood cultures. He received Rocephin in the emergency department. For now will cover with cefepime given recent hospitalization and kumar. He appears dry but does not appear systemically ill so not clearly infected. HEME: Metastatic prostate cancer as per above. Dr. Mosley previously recommended palliative chemo but family refused. Patient states he is waiting to see what happens at f/u with Dr. Sepulveda to decide. ENDO: Type 1 diabetes mellitus Pt states DM diagnosed at age 5 Continue Lantus 15 units subcut qhs Medium dose insulin sliding scale ac/hs. PROPH: SCD for DVT prophylaxis. Avoid heparin for DVT prophylaxis given history of duodenal ulcer with GI bleed requiring 6 units transfusion in June 2017. Protonix for stress ulcer prophylaxis. ACCESS: PIV Patient states he is full code Level III H and P Consult hospitalist to assume care Problem Qualifiers (1) Fall: Qualified Codes: W19.XXXA - Unspecified fall, initial encounter (2) DM (diabetes mellitus): Tatyana Baltazar MD Oct 06, 2017 02:40
[2017-10-06] MEDS ORDERED: SODIUM CHLOR 0.9% 1000 ML INJ 1,000 ML IV SCH (02:48)
[2017-10-06] MEDS ORDERED: IOHEXOL 350 MG/ML 10 ML VIAL (for RAD DIAG) IVCONTRAST ONE (02:57)
[2017-10-06] MEDS ORDERED: ACETAMINOPHEN 325 MG TAB PO PRN (03:00)
[2017-10-06] MEDS ORDERED: MAGNESIUM HYDROXIDE SUSP 30 ML CUP PO PRN (03:00)
[2017-10-06] MEDS ORDERED: ONDANSETRON HCL 4 MG/2 ML VIAL IV PUSH PRN (03:00)
[2017-10-06] MEDS ORDERED: LACTULOSE SYRUP 20 GM/30 ML CUP PO PRN (03:00)
[2017-10-06] MEDS ORDERED: CHLORHEXIDINE GLUCONATE 2 % 1 PACK (2 CLOTHS) TOP PRN (03:00)
[2017-10-06] MEDS ORDERED: MISCELLANEOUS NURSING INFORMATION XX SCH (03:00)
[2017-10-06] MEDS ORDERED: CEFEPIME INJ 2,000 MG in SODIUM CHLORIDE 0.9% INJ 100 ML IV SCH (03:00)
[2017-10-06] MEDS ORDERED: DEXTROSE 50% IN WATER 50 ML VIAL(D50) IV PUSH PRN (03:00)
[2017-10-06] MEDS ORDERED: SODIUM CHLORIDE 0.9% FLUSH 10 ML FLUSH IV FLUSH PRN (03:00)
[2017-10-06] MEDS ORDERED: RESP: ALBUTEROL 2.5 MG/3 ML NEB (PRN) INH (03:00)
[2017-10-06] MEDS ORDERED: BISACODYL 10 MG SUPP RECTAL PRN (03:00)
[2017-10-06] MEDS ORDERED: GLUCAGON 1 MG/ML VIAL OTHER PRN (03:00)
[2017-10-06] MEDS ORDERED: SENNOSIDES 8.6 MG TAB PO PRN (03:00)
[2017-10-06 03:04] LABS: AMORPHOUS SEDIMENT, URINE RARE; BACTERIA, URINE MANY /hpf; BILIRUBIN, URINE NEG (NEG); BLOOD, URINE LARGE (NEG); GLUCOSE,URINE 300 mg/dL (NEG); KETONE, URINE 10 mg/dL (NEG); MUCUS URINE MANY /lpf (OCC); NITRITE,URINE POS (NEG); PH, URINE 5.5 (5.0-8.5); SQUAMOUS EPITHELIAL CELL URINE 3 /hpf (0-5); URINE COLOR YELLOW (YELLW/STRAW); URINE LEUKOCYTE ESTERASE LARGE (NEG)
[2017-10-06 03:05] LABS: AMORPHOUS SEDIMENT, URINE RARE; BACTERIA, URINE RARE /hpf; BILIRUBIN, URINE NEG (NEG); BLOOD, URINE TRACE (NEG); GLUCOSE,URINE 300 mg/dL (NEG); KETONE, URINE 10 mg/dL (NEG); MUCUS URINE FEW /lpf (OCC); NITRITE,URINE NEG (NEG); SQUAMOUS EPITHELIAL CELL URINE <1 /hpf (0-5); URINE COLOR YELLOW (YELLW/STRAW); URINE LEUKOCYTE ESTERASE LARGE (NEG)
[2017-10-06] MEDS ORDERED: HYDROmorphone HCL PF 2 MG/ML VIAL IV PUSH PRN ×2 (03:15)
[2017-10-06] MEDS ORDERED: ACETAMINOPHEN/HYDROcodone 325 MG/10 MG TAB PO PRN (03:15)
--- NOTE | 2017-10-06 03:25 | RADRPT ---
EXAM DATE/TIME: 10/06/2017 02:51 [facility] COMPARISON: CT ABDOMEN & PELVIS W/O CONTRAST, June 19, 2017, 0:22. INDICATIONS : Shortness of breath. IV CONTRAST: 70 cc Omnipaque 350 (iohexol) IV RADIATION DOSE: 19.75 CTDIvol (mGy) MEDICAL HISTORY : Cardiovascular disease. Congestive heart failure. Hypertension.Prostate cancer. Testicular cancer. SURGICAL HISTORY : None. ENCOUNTER: Initial ACUITY: 1 day PAIN SCALE: 0/10 LOCATION: Bilateral chest TECHNIQUE: Volumetric scanning of the chest was performed using a pulmonary embolism protocol MIP images were re constructed. Using automated exposure control and adjustment of the mA and/or kV according to patien t size, radiation dose was kept as low as reasonably achievable to obtain optimal diagnostic quality images. DICOM format image data is available electronically for review and comparison. Follow-up recommendations for detected pulmonary nodules are based at a minimum on nodule size and pa tient risk factors according to Fleischner Society Guidelines. FINDINGS: PULMONARY ARTERIES: No filling defects are seen in the pulmonary arteries through the segmental level. LUNGS: Bilateral lower lobe atelectasis. No confluent consolidation seen. No masses or nodules seen. PLEURAE: There is no pleural thickening or pleural effusion. MEDIASTINUM: Coronary artery stent noted. Thoracic aorta diameter within normal limits. No enlarged lymph nodes. MUSCULOSKELETAL: Multiple scattered sclerotic foci in the ribs and vertebral bodies indicating bony metastatic disease . No associated soft tissue masses. Central canal of the thoracic spine is grossly within normal limi ts at all levels. MISCELLANEOUS: Visualized portions of the upper abdomen unchanged from 06/19/2017. CONCLUSION: 1. No evidence of pulmonary embolus. 2. Diffuse bony metastatic disease. Robert Hendrix MD on October 06, 2017 at 3:17 Board Certified Radiologist. This report was verified electronically.
[2017-10-06] MEDS ORDERED: CHLORHEXIDINE GLUCONATE 2 % 1 PACK (2 CLOTHS) TOP SCH (04:00)
[2017-10-06 05:59] VITALS: BP 159/76; PULSE 76; RESP 18; O2SAT 98
[2017-10-06 06:11] VITALS: O2SAT 98
[2017-10-06 07:00] VITALS: BP 113/68; PULSE 78; RESP 14; TEMP 98.3; O2SAT 98
[2017-10-06] MEDS ORDERED: INSULIN ASPART SUPPLEMENTAL SCALE SQ SCH (08:00)
--- NOTE | 2017-10-06 08:36 | RADRPT ---
EXAM DATE/TIME: 10/06/2017 07:55 [facility] COMPARISON: NEPHROURETERAL CATHETER, RIGHT, August 29, 2017, 15:36. US KIDNEY/RENAL/BLADDER, February 12, 2017, 19:20. EXTERNAL COMPARISON : [facility], CT Abdomen and pelvis, December 13, 2016 INDICATIONS : Hydronephrosis. MEDICAL HISTORY : Cardiovascular disease. Congestive heart failure. Hypertension .Prostate cancer. Testicular cancer. SURGICAL HISTORY : None. ENCOUNTER: Initial ACUITY: 1 day PAIN SCORE: 0/10 LOCATION: Right flank MEASUREMENTS: RIGHT KIDNEY: 12.9 x 5.6 x 6.7 cm LEFT KIDNEY: 11.1 x 4.0 x 5.0 cm FINDINGS: RIGHT KIDNEY: Right kidney demonstrates normal cortical thickness and echogenicity. There is a well-circumscribed s imple-appearing cyst measuring 1.8 cm within the lower pole. No evidence of hydronephrosis. There is a stent seen traversing the right renal cortex. No evidence of hydronephrosis. LEFT KIDNEY: The left kidney demonstrates normal morphology and echogenicity. The previously hydronephrosis is no longer present. No stent is visualized within the left kidney. BLADDER: The bladder is not visualized. The prostate is enlarged and heterogeneous measuring 10.0 x 5.6 x 6.3 cm. CONCLUSION: There is a right-sided nephrostomy stent visualized with no evidence of hydronephrosis. The left kidn ey is normal in appearance with resolved hydronephrosis. No stent is visualized.. Carolina Lehman MD on October 06, 2017 at 8:27 Board Certified Radiologist. This report was verified electronically.
[2017-10-06] MEDS ORDERED: SUCRALFATE 1 GM TAB PO SCH (09:00)
[2017-10-06] MEDS ORDERED: DOCUSATE SODIUM 50 MG/SENNA 8.6 MG TAB PO SCH (09:00)
[2017-10-06] MEDS ORDERED: SODIUM CHLORIDE 0.9% FLUSH 10 ML FLUSH IV FLUSH SCH (09:00)
[2017-10-06] MEDS ORDERED: ESCITALOPRAM OXALATE 10 MG TAB PO SCH (09:00)
[2017-10-06] MEDS ORDERED: PANTOPRAZOLE SOD 40 MG DELAYED RELEASE TAB PO SCH (09:00)
--- NOTE | 2017-10-06 17:34 | EKG ---
Date Performed: 10/05/2017 Time Performed: 23:30:40 PTAGE: 57 years EKG: Sinus rhythm LEFT VENTRICULAR HYPERTROPHY AND ST-T CHANGE Compared to previous tracing, QRS VOLTAGE HAS INCREASED . ST-T CHANGE IS SLIGHTLY MORE PROMINENT. THE POOR R WAVE PROGRESSION IS NO LONGER PRESENT ABNORMAL E CG PREVIOUS TRACING : 06/16/2017 07.05 DOCTOR: Jose Feliz Interpretating Date/Time 10/06/2017 17:33:57
[2017-10-06] MEDS ORDERED: INSULIN DETEMIR 100 UNITS/ML VIAL SQ SCH (21:00)
[2017-10-06] MEDS ORDERED: GABAPENTIN 300 MG CAP PO SCH (21:00)
== END 2017-10-06 12:54 | disposition left against medical advice (07) | DRG 83 ==
LOC: NEPD 22:17 → NEDA 10-06 01:47 → NEDH 10-06 06:35
PROVIDERS: ADMIT Hospitalist; ATTEND Hospitalist
DX: S06.6X9A Traumatic subarachnoid hemorrhage with loss of consciousness of unspecified duration, initial encounter (principal); N17.9 Acute kidney failure, unspecified; I11.0 Hypertensive heart disease with heart failure; C79.51 Secondary malignant neoplasm of bone; I50.22 Chronic systolic (congestive) heart failure; E10.40 Type 1 diabetes mellitus with diabetic neuropathy, unspecified; N39.0 Urinary tract infection, site not specified; C61 Malignant neoplasm of prostate; D64.9 Anemia, unspecified; W19.XXXA Unspecified fall, initial encounter; I25.10 Atherosclerotic heart disease of native coronary artery without angina pectoris; E78.5 Hyperlipidemia, unspecified; I95.1 Orthostatic hypotension; R55 Syncope and collapse; Z91.19 Patient's noncompliance with other medical treatment and regimen; Z93.6 Other artificial openings of urinary tract status; Z87.11 Personal history of peptic ulcer disease
CPT/HCPCS: 70450; 71045; 71275; 72125; 76775; 80053; 81001; 82550; 83605; 83735; 84484; 85025; 85610; 85730; 87040; 87077; 87086; 87186; 93005; 96361; 96374; J0692; J0696; J7030; Q9967

== ENCOUNTER 2017-10-06 15:42 | Inpatient (IN) | payer OTHER, MEDICARE ==
[~2017-10-06] VITALS: Ht 182.9 cm; Wt 74.5 kg
[~2017-10-06 15:42] MED LIST changes: +ALPR0.5T3 PO; +ESCI10TA PO; +HALO1TAB PO; +HYDR2TAB PO; +HYDR4TAB PO; +MORP20SY PO; +OMEP20TA93 PO; +PROC10TA PO; +SENN1TAB PO; +SUCR1TAB PO
--- NOTE | 2017-10-06 16:00 | PD ---
HPI Chief Complaint: AMS Time Seen by Provider: 15:56 Travel History International Travel<30 days: No Contact w/Intl Traveler<30days: No History of Present Illness HPI 57-year-old male, poor historian, presents emergency department via [facility] at the request of his daughter because she "cannot take care of him". According to [facility], daughter is 9 months and has difficulty taking care of the patient as he does have multiple chronic medical conditions. Patient states that he is on hospice and is "waiting for an appointment with Dr. Edwards November 21 ". Patient does not explain why he is on hospice. [facility] also states that his blood sugar is over 400. Patient says he feels "weak" and has to take a bowel movement. He denies fever, chills, chest pain, shortness of breath. Denies any falls today after leaving AMA. PFSH Past Medical History Autoimmune Disease: No Anxiety: Yes Depression: No Cancer: Yes Cardiac Catheterization: Yes Cardiovascular Problems: Yes High Cholesterol: Yes Congestive Heart Failure: Yes Cerebrovascular Accident: No Diabetes: Yes Diminished Hearing: No Endocrine: Yes Gastrointestinal Disorders: Yes (nausea vomiting ) Genitourinary: No Hypertension: Yes Immune Disorder: No Implanted Vascular Access Dvce: Yes Musculoskeletal: No Neurologic: Yes (Diabetic neuropathy) Psychiatric: Yes Reproductive: No Respiratory: Yes Migraines: No Radiation Therapy: No Seizures: No Thyroid Disease: No Past Surgical History Abdominal Surgery: No AICD: No Arteriovenous Shunt: No Body Medical Devices: cardiac stent Cardiac Surgery: Yes (Cardiac stent ) Coronary Stent: Yes (TIMES ONE - DR LOCKE) Ear Surgery: No Endocrine Surgery: No Eye Surgery: No Genitourinary Surgery: Yes (BILAT NEPH TUBES) Gynecologic Surgery: No Insulin Pump: No Joint Replacement: No Oral Surgery: No Pacemaker: No Thoracic Surgery: No Other Surgery: Yes (TESTICULAR SX DUE TO CA) Social History Alcohol Use: No Tobacco Use: No Substance Use: No Allergies-Medications (Allergen,Severity, Reaction): Coded Allergies: glyburide (Verified Allergy, Severe, RASH, 10/05/17) amlodipine (Verified Allergy, Unknown, 10/05/17) rhabdomyolysis atorvastatin (Verified Allergy, Unknown, 10/05/17) rhabdomyolysis metformin (Verified Allergy, Unknown, Rash, 10/05/17) pravastatin (Verified Allergy, Unknown, 10/05/17) rhabdomyolysis simvastatin (Verified Allergy, Unknown, 10/05/17) rhabdomyolysis Reported Meds & Prescriptions Reported Meds & Active Scripts Active Hydrocodone-Acetaminophen 10-325 mg Tab 1 Tab PO Q6HR PRN Commode 3-in-1 (Device) 1 Mis Mis Ea .ROUTE DIRECTED Reported Morphine Sulfate 20 Mg/Ml Syringe 0.75-1 Ml PO Q4HR PRN Sucralfate 1 Gram Tab 1 Gm PO TID on empty stomach Haloperidol 1 Mg Tab 1 Mg PO BID Hydromorphone (Hydromorphone HCl) 4 Mg Tab 6 Mg PO Q4HR PRN Hydromorphone (Hydromorphone HCl) 4 Mg Tab 4 Mg PO Q4H PRN Hydromorphone (Hydromorphone HCl) 2 Mg Tab 2 Mg PO Q4H PRN Senna-Plus (Sennosides-Docusate Sodium) 8.6-50 Mg Tab 3 Tab PO BID Prochlorperazine Maleate 10 Mg Tab 10 Mg PO Q4H PRN Omeprazole 20 Mg Tab 20 Mg PO BID Alprazolam 0.5 Mg Tab 0.5 Mg PO Q4H PRN Escitalopram (Escitalopram Oxalate) 10 Mg Tab 10 Mg PO DAILY Lisinopril 20 Mg Tab 20 Mg PO DAILY Lantus Inj (Insulin Glargine) 1,000 Unit/10 Ml Vial 15 Units SQ HS Coreg (Carvedilol) 12.5 Mg Tab 12.5 Mg PO BID Novolog Flexpen Inj (Insulin Aspart) 300 Unit/3 Ml Pen SQ TIDAC PER SLIDING SCALE Gabapentin 300 Mg Cap 300 Mg PO BID Flomax (Tamsulosin HCl) 0.4 Mg Cap 0.4 Mg PO HS Review of Systems Except as stated in HPI: all other systems reviewed are Neg Physical Exam Narrative GENERAL: Well-developed, thin, answers questions appropriately occasionally SKIN: Focused skin assessment warm/dry. HEAD: Atraumatic. Normocephalic. EYES: Pupils equal and round. No scleral icterus. No injection or drainage. ENT: No nasal bleeding or discharge. Mucous membranes pink and moist. NECK: Trachea midline. No JVD. No midline tenderness, no lymphadenopathy CARDIOVASCULAR: Regular rate and rhythm. No murmur appreciated. RESPIRATORY: No accessory muscle use. Clear to auscultation. Breath sounds equal bilaterally. GASTROINTESTINAL: Abdomen soft, non-tender, nondistended. Hepatic and splenic margins not palpable. No CVA tenderness. Bilateral nephrostomy tubes appear patent with urine in bags. MUSCULOSKELETAL: No obvious deformities. No clubbing. No cyanosis. No edema. NEUROLOGICAL: Awake and alert. No obvious cranial nerve deficits. Motor grossly within normal limits. Normal speech. PSYCHIATRIC: Appropriate mood and affect; insight and judgment normal. Data Data Last Documented VS Vital Signs Date Time Temp Pulse Resp B/P (MAP) Pulse Ox O2 Delivery O2 Flow Rate FiO2 10/06/17 19:07 69 16 124/73 (90) 97 Room Air 10/06/17 16:05 98.9 Orders Orders Electrocardiogram (10/06/17 16:01) Ammonia (10/06/17 16:01) Complete Blood Count With Diff (10/06/17 16:01) Comprehensive Metabolic Panel (10/06/17 16:01) Creatine Kinase (Cpk) (10/06/17 16:01) Prothrombin Time / Inr (Pt) (10/06/17 16:01) Act Partial Throm Time (Ptt) (10/06/17 16:01) Troponin I (10/06/17 16:01) Thyroid Stimulating Hormone (10/06/17 16:01) Urinalysis - C+S If Indicated (10/06/17 16:01) Lactic Acid Sepsis Protocol (10/06/17 16:01) Blood Culture (10/06/17 16:01) Chest, Single Ap (10/06/17 16:01) Ct Brain W/O Iv Contrast(Rout) (10/06/17 16:01) Sepsis Workup Initiated (10/06/17 ) Beta Hydroxybutyrate (Acetone) (10/06/17 16:01) Lorazepam Inj (Ativan Inj) (10/06/17 19:27) Lorazepam Inj (Ativan Inj) (10/06/17 19:45) Psych Screen (10/06/17 19:45) Admit Order (Ed Use Only) (10/06/17 19:58) Labs Laboratory Tests Test 10/06/17 16:20 White Blood Count 9.6 TH/MM3 Red Blood Count 3.65 MIL/MM3 Hemoglobin 9.1 GM/DL Hematocrit 29.1 % Mean Corpuscular Volume 79.7 FL Mean Corpuscular Hemoglobin 25.0 PG Mean Corpuscular Hemoglobin Concent 31.4 % Red Cell Distribution Width 16.3 % Platelet Count 327 TH/MM3 Mean Platelet Volume 7.8 FL Neutrophils (%) (Auto) 83.1 % Lymphocytes (%) (Auto) 9.3 % Monocytes (%) (Auto) 7.4 % Eosinophils (%) (Auto) 0.0 % Basophils (%) (Auto) 0.2 % Neutrophils # (Auto) 8.0 TH/MM3 Lymphocytes # (Auto) 0.9 TH/MM3 Monocytes # (Auto) 0.7 TH/MM3 Eosinophils # (Auto) 0.0 TH/MM3 Basophils # (Auto) 0.0 TH/MM3 CBC Comment DIFF FINAL Differential Comment Prothrombin Time 11.5 SEC Prothromb Time International Ratio 1.1 RATIO Activated Partial Thromboplast Time 26.6 SEC Blood Urea Nitrogen 35 MG/DL Creatinine 1.81 MG/DL Random Glucose 404 MG/DL Total Protein 7.5 GM/DL Albumin 2.4 GM/DL Calcium Level 7.9 MG/DL Alkaline Phosphatase 142 U/L Aspartate Amino Transf (AST/SGOT) 11 U/L Alanine Aminotransferase (ALT/SGPT) 9 U/L Total Bilirubin 0.2 MG/DL Sodium Level 132 MEQ/L Potassium Level 4.4 MEQ/L Chloride Level 101 MEQ/L Carbon Dioxide Level 18.3 MEQ/L Anion Gap 13 MEQ/L Estimat Glomerular Filtration Rate 39 ML/MIN Lactic Acid Level 1.5 mmol/L Ammonia 28 MCMOL/L Total Creatine Kinase 50 U/L Troponin I LESS THAN 0.02 NG/ML Thyroid Stimulating Hormone 3rd Gen 0.945 uIU/ML B-Hydroxybutyrate 0.43 MMOL/L MDM Medical Decision Making Medical Screen Exam Complete: Yes Emergency Medical Condition: Yes Differential Diagnosis Medication noncompliance, weakness, dementia, kidney failure Narrative Course 57-year-old male, poor historian, presents emergency department via [facility] at the request of his daughter because she "cannot take care of him". According to [facility], daughter is 9 months and has difficulty taking care of the patient as he does have multiple chronic medical conditions. Patient states that he is on hospice and is "waiting for an appointment with Dr. Edwards November 21 ". Patient does not explain why he is on hospice. [facility] also states that his blood sugar is over 400. Patient says he feels "weak" and has to take a bowel movement. He denies fever, chills, chest pain, shortness of breath. Denies any falls today after leaving AMA. It does not appear pt is on a blood thinner. Review of EMR: Patient was admitted to Dr. Baltazar this morning for a syncopal episode, multiple falls, and subarachnoid hemorrhage. After review of Dr. Baltazar note from this morning, patient was due to have a CT brain this morning. This is ordered to determine stability. He was due to have neurosurgery for consult in the hospital. A CTA in the ED was negative for PE. He has a diagnosis of orthostatic hypotension and CAD. Possible UTI-treated with cefepime in the ER. Past medical history significant for: Diabetes mellitus type 1: Dx Age5 Chronic systolic heart failure HTN HLD Prostate CA with mets to bone Dx:2017 Bilateral nephrostomy tube placement June 2017 Enrolled in hospice but was discharged today, according to hospice. Due to follow up with Dr. Sepulveda 10/22. Labs: UA appeared to be consistent for UTI, however, this sample came from a nephrostomy tube bag. I am not convinced this is a cause of his confusion and I believe this may be from contamination. Chronic anemia stable. B hydroxybutyrate slightly elevated. BGL 404 Elevated BUN/Cr from baseline. Lactic 1.5 Likely non complaint with medications today. I had an extensive discussion with the family, daughter and ex . Pantera, his ex- whom is active in his healthcare, explained that patient is not cognizant of what his diagnosis is. States he does not understand what is going on and does not believe he has any the illnesses that he truly has. Apparently, patient had his "medical power of attorney law clerk" taken away in 2016 and she believes he needs it again. She also says that he has not left his room at home in approximately 6 months after the diagnosis of prostate cancer. Pantera states that she is welcome to answer any questions at any point in office her phone number to assist. Her number is [phone]. It appears that patient is not competent enough to determine whether or not he needs care. Patient should remain in the hospital for treatment and evaluation. I believe that if he leaves again, he will be a detriment to himself. I had an extensive discussion with Dr. Ingram, Dr. Baltazar, and staff that treated this patient earlier this morning. Dr. Ingram assisted with the efforts to have the patient placed as a Bradley Act. Pt unable to remain in room throughout hospital stay and there was difficulty assessing his mental status and receiving treatment necessary. He was reluctant to have any treatment actually and wanted to go home. 1L NS IVF initiated. Ativan 1mg for agitation. Initially NPO for concern of worsening SAH. Diet ordered after stability noted on CT head. He will be admitted to Dr. Mathias for subarachnoid hemorrhage, confusion, altered mental status. Diagnosis Primary Impression: Acute metabolic encephalopathy Additional Impressions: Agitation Subarachnoid hemorrhage Admitting Information Admitting Physician Requests: Admit Condition: Stable Hannah Molina Oct 06, 2017 16:00
[2017-10-06 16:05] VITALS: BP 121/83; PULSE 75; RESP 19; TEMP 98.9; O2SAT 99
[2017-10-06 16:30] VITALS: BP 149/69; PULSE 77; RESP 18; O2SAT 100
[2017-10-06 16:59] LABS: INTERNATIONAL NORMALIZED RATIO 1.1 RATIO; PROTHROMBIN TIME - PATIENT 11.5 SEC (9.8-11.6)
--- NOTE | 2017-10-06 17:50 | RADRPT ---
EXAM DATE/TIME: 10/06/2017 16:23 [facility] COMPARISON: CHEST SINGLE AP, October 05, 2017, 23:02. INDICATIONS : Syncopal episode- shortness of breath. MEDICAL HISTORY : Cardiovascular disease. Congestive heart failure. Hypertension .Prostate cancer. Testicular cancer. SURGICAL HISTORY : None. ENCOUNTER: Initial ACUITY: 1 day PAIN SCORE: 0/10 LOCATION: Bilateral chest FINDINGS: Lungs are hypoaerated. Interstitial vascular prominence is seen in the lower lobes. There is no evide nce of consolidating airspace disease or effusions. Heart and mediastinal structures are unremarkable. CONCLUSION: Poor inspiratory chest with mild basilar interstitial vascular prominence. Mild congestion is not exc luded. Otherwise stable chest with no other evidence of acute process. Asaf Carney MD on October 06, 2017 at 17:46 Board Certified Radiologist. This report was verified electronically.
[2017-10-06 18:00] VITALS: BP 135/69; PULSE 79; RESP 16; O2SAT 100
[2017-10-06 18:10] LABS: ALBUMIN 2.4 GM/DL (3.4-5.0); ALKALINE PHOSPHATASE 142 U/L (45-117); ALT (GPT) 9 U/L (12-78); AST (GOT) 11 U/L (15-37); BICARBONATE 18.3 MEQ/L (21.0-32.0); BLOOD UREA NITROGEN 35 MG/DL (7-18); CALCIUM 7.9 MG/DL (8.5-10.1); CHLORIDE 101 MEQ/L (98-107); CREATININE 1.81 MG/DL (0.60-1.30); GLOMERULAR FILTRATION RATE 39 ML/MIN (>89); GLUCOSE,RANDOM 404 MG/DL (74-106); SODIUM (NA) 132 MEQ/L (136-145); TOTAL BILIRUBIN ADULT 0.2 MG/DL (0.2-1.0); TOTAL PROTEIN 7.5 GM/DL (6.4-8.2); TROPONIN I LESS THAN 0.02 NG/ML (0.02-0.05)
[2017-10-06 18:13] LABS: BASOPHIL % 0.2 % (0.0-2.0); HEMATOCRIT 29.1 % (39.0-51.0); HEMOGLOBIN 9.1 GM/DL (13.0-17.0); LYMPH % 9.3 % (9.0-44.0); LYMPHOCYTE # 0.9 TH/MM3 (1.0-4.8); MEAN CELL VOLUME 79.7 FL (80.0-100.0); MEAN CORPUSCULAR HGB CONC 31.4 % (32.0-36.0); MEAN PLATELET VOLUME 7.8 FL (7.0-11.0); MONO % 7.4 % (0.0-8.0); MONOCYTE # 0.7 TH/MM3 (0-0.9); NEUT % 83.1 % (16.0-70.0); PLATELET COUNT 327 TH/MM3 (150-450); RED BLOOD COUNT 3.65 MIL/MM3 (4.50-5.90); RED CELL DISTRIBUTION WIDTH 16.3 % (11.6-17.2); WHITE BLOOD COUNT 9.6 TH/MM3 (4.0-11.0)
[2017-10-06 18:39] VITALS: BP_SYST 135; BP_SYST 165; BP_DIAS 69; BP_DIAS 88; PULSE 73; PULSE 89; RESP 18; O2SAT 100
--- NOTE | 2017-10-06 18:42 | RADRPT ---
EXAM DATE/TIME: 10/06/2017 18:06 [facility] COMPARISON: CT BRAIN W/O CONTRAST, October 06, 2017, 0:03. INDICATIONS : Altered mental status. Follow up hemorrhage. RADIATION DOSE: 50.19 CTDIvol (mGy) MEDICAL HISTORY : Cardiovascular disease. Hypertension. Carcinoma, prostate.Diabetes SURGICAL HISTORY : Bilateral nephrostomys ENCOUNTER: Subsequent ACUITY: 1 day PAIN SCALE: 0/10 LOCATION: cranial TECHNIQUE: Multiple contiguous axial images were obtained of the head. Using automated exposure control and adj ustment of the mA and/or kV according to patient size, radiation dose was kept as low as reasonably a chievable to obtain optimal diagnostic quality images. DICOM format image data is available electro nically for review and comparison. FINDINGS: CEREBRUM: There continues to be subarachnoid hemorrhage seen in the right frontoparietal region. No new areas o f hemorrhage are seen. The ventricles are normal for age. No evidence of midline shift, mass lesion, or acute infarction. No extra-axial fluid collections are seen. POSTERIOR FOSSA: The cerebellum and brainstem are intact. The 4th ventricle is midline. The cerebellopontine angle i s unremarkable. EXTRACRANIAL: The visualized portion of the orbits is intact. SKULL: The calvaria is intact. No evidence of skull fracture. CONCLUSION: Persistent unchanged subarachnoid hemorrhage in the right frontoparietal region. Rogerio Phelan MD on October 06, 2017 at 18:38 Board Certified Radiologist. This report was verified electronically.
[2017-10-06 19:07] VITALS: BP 124/73; PULSE 69; RESP 16; O2SAT 97
[2017-10-06] MEDS ORDERED: LORazepam 2 MG/ML VIAL ONE (19:27)
[2017-10-06] MEDS ORDERED: LORazepam 2 MG/ML VIAL IV PUSH ONE (19:45)
--- NOTE | 2017-10-06 19:50 | PD ---
Data Data Last Documented VS Vital Signs Date Time Temp Pulse Resp B/P (MAP) Pulse Ox O2 Delivery O2 Flow Rate FiO2 10/06/17 19:07 69 16 124/73 (90) 97 Room Air 10/06/17 16:05 98.9 Orders Orders Electrocardiogram (10/06/17 16:01) Ammonia (10/06/17 16:01) Complete Blood Count With Diff (10/06/17 16:01) Comprehensive Metabolic Panel (10/06/17 16:01) Creatine Kinase (Cpk) (10/06/17 16:01) Prothrombin Time / Inr (Pt) (10/06/17 16:01) Act Partial Throm Time (Ptt) (10/06/17 16:01) Troponin I (10/06/17 16:01) Thyroid Stimulating Hormone (10/06/17 16:01) Urinalysis - C+S If Indicated (10/06/17 16:01) Lactic Acid Sepsis Protocol (10/06/17 16:01) Blood Culture (10/06/17 16:01) Chest, Single Ap (10/06/17 16:01) Ct Brain W/O Iv Contrast(Rout) (10/06/17 16:01) Sepsis Workup Initiated (10/06/17 ) Beta Hydroxybutyrate (Acetone) (10/06/17 16:01) Lorazepam Inj (Ativan Inj) (10/06/17 19:27) Diet Heart Healthy (10/07/17 Breakfast) Lorazepam Inj (Ativan Inj) (10/06/17 19:45) Psych Screen (10/06/17 19:45) Labs Laboratory Tests Test 10/06/17 16:20 White Blood Count 9.6 TH/MM3 Red Blood Count 3.65 MIL/MM3 Hemoglobin 9.1 GM/DL Hematocrit 29.1 % Mean Corpuscular Volume 79.7 FL Mean Corpuscular Hemoglobin 25.0 PG Mean Corpuscular Hemoglobin Concent 31.4 % Red Cell Distribution Width 16.3 % Platelet Count 327 TH/MM3 Mean Platelet Volume 7.8 FL Neutrophils (%) (Auto) 83.1 % Lymphocytes (%) (Auto) 9.3 % Monocytes (%) (Auto) 7.4 % Eosinophils (%) (Auto) 0.0 % Basophils (%) (Auto) 0.2 % Neutrophils # (Auto) 8.0 TH/MM3 Lymphocytes # (Auto) 0.9 TH/MM3 Monocytes # (Auto) 0.7 TH/MM3 Eosinophils # (Auto) 0.0 TH/MM3 Basophils # (Auto) 0.0 TH/MM3 CBC Comment DIFF FINAL Differential Comment Prothrombin Time 11.5 SEC Prothromb Time International Ratio 1.1 RATIO Activated Partial Thromboplast Time 26.6 SEC Blood Urea Nitrogen 35 MG/DL Creatinine 1.81 MG/DL Random Glucose 404 MG/DL Total Protein 7.5 GM/DL Albumin 2.4 GM/DL Calcium Level 7.9 MG/DL Alkaline Phosphatase 142 U/L Aspartate Amino Transf (AST/SGOT) 11 U/L Alanine Aminotransferase (ALT/SGPT) 9 U/L Total Bilirubin 0.2 MG/DL Sodium Level 132 MEQ/L Potassium Level 4.4 MEQ/L Chloride Level 101 MEQ/L Carbon Dioxide Level 18.3 MEQ/L Anion Gap 13 MEQ/L Estimat Glomerular Filtration Rate 39 ML/MIN Lactic Acid Level 1.5 mmol/L Ammonia 28 MCMOL/L Total Creatine Kinase 50 U/L Troponin I LESS THAN 0.02 NG/ML Thyroid Stimulating Hormone 3rd Gen 0.945 uIU/ML B-Hydroxybutyrate 0.43 MMOL/L MDM Supervised Visit with ADAM: Yes Narrative Course The history, exam, and medical decision-making in the associated mid-level provider note were completed with my assistance. I reviewed and agree with the findings presented. I attest that I had a [id number] encounter with the patient on the same day, and personally performed and documented my assessment and findings in the medical record. *My assessment and Findings: Is a 57-year-old man presents to the emergency department brought by family. Apparently left AMA this morning. Extensive medical history is to find in the chart. He has metastatic malignancy, he has had recent acute metabolic encephalopathy related to ureteral obstruction. He has bilateral nephrostomy tubes in. He was treated for infection also. Family states he has been confused and unable to care for himself worsening over the past several weeks. The apparently revoked hospice this morning after discussion recommended a care center. He is back now. The difficult situation patient says that he feels fine. He does have some subtle but clear confusion. He confabulates. He mistakes details of his disease. It is unclear how much he understands about potential for worsening infection or other symptoms. I spoke with hospice, apparently the , the patient identifies of the ex-, is the one who revoked hospice. They report that all the family members were they are including both daughters who appear to be his healthcare proxy is. At this point, there is some much uncertainty, patient does have overt confusion, although the degree of the confusion is a matter of unclarity. Given the uncertainty, and the concern for the family, confusion on the part of the patient, will place patient under a Bradley act for involuntary evaluation. Will hold patient, admit to medicine, psychiatric consultation, consider repeat consultation with social work and hospice. Diagnosis Primary Impression: Acute metabolic encephalopathy Additional Impressions: Subarachnoid hemorrhage Agitation Condition: Stable Doc Ingram MD Oct 06, 2017 19:50
[2017-10-06] MEDS ORDERED: LACTULOSE SYRUP 20 GM/30 ML CUP PO PRN (20:00)
[2017-10-06] MEDS ORDERED: GLUCAGON 1 MG/ML VIAL OTHER PRN (20:00)
[2017-10-06] MEDS ORDERED: SENNOSIDES 8.6 MG TAB PO PRN (20:00)
[2017-10-06] MEDS ORDERED: BISACODYL 10 MG SUPP RECTAL PRN (20:00)
[2017-10-06] MEDS ORDERED: DEXTROSE 50% IN WATER 50 ML VIAL(D50) IV PUSH PRN (20:00)
[2017-10-06] MEDS ORDERED: ONDANSETRON HCL 4 MG/2 ML VIAL IVP PRN (20:00)
[2017-10-06] MEDS ORDERED: SODIUM CHLORIDE 0.9% FLUSH 10 ML FLUSH IV FLUSH PRN (20:00)
[2017-10-06] MEDS ORDERED: MAGNESIUM HYDROXIDE SUSP 30 ML CUP PO PRN (20:00)
--- NOTE | 2017-10-06 20:02 | HHI.HP ---
[facility] No Primary Care Physician Admission Diagnosis SAH, AMS Diagnoses: (1) SAH (subarachnoid hemorrhage) Diagnosis: Principal (2) Encephalopathy Diagnosis: Principal (3) UTI (urinary tract infection) Diagnosis: Principal (4) DM (diabetes mellitus) Diagnosis: Principal Travel History International Travel<30 Days: No Contact w/Intl Traveler <30 Da: No Traveled to Known Affected Are: No History of Present Illness This is a 57-year-old male with a PMH of Anxiety, HTN, Hyperlipidemia, CHF ( Echo 06/16/2017 w/ EF 30-35%), CAD, Stage IV Prostate CA, reportedly on Hospice , Hydronephrosis s/p Bilateral Nephrostomy Tubes and DM who was brought to the ER by EMS at Daughter's request for AMS as she is unable to care for him. Pt initially presented to ER on 10/05/[address] Head w/ small SAH, + orthostatic hypotension and UTI. Admitted to ICU, however pt ultimately LEFT AMA. Returns now for worsening AMS per Daughter and apparent fall. Pt poor historian, unable to provide much history. CT Head today notes unchanged small SAH, discussed w/ Date Night Sitter, pt ok for medical admission as bleeding unchanged. On arrival, BP 135/69, HR 79, O2 sat 100% RA, Afebrile. CBC essentially at baseline. Creatinine 1.89, previously 1.4904 618. BS 404. Lactic Acid normal. Ammonia 28. Troponin negative. INR 1.1. UA positive for UTI. CT Head with persistent unchanged subarachnoid hemorrhage as above. CXR poor inspiratory chest mild basilar interstitial vascular prominence. While in ER, pt confused, agitated ultimately requiring restraints. Review of Systems Except as stated in HPI: all other systems reviewed are Neg ROS: Unable to obtain secondary to AMS. Past Family Social History Past Medical History PMH: Anxiety, HTN, Hyperlipidemia, CHF (Echo 06/16/2017 w/ EF 30-35%), CAD, Stage IV Prostate CA, reportedly on Hospice, Hydronephrosis s/p Bilateral Nephrostomy Tubes and DM Past Surgical History PAST SURGICAL HISTORY: Cardiac Stent, Bilateral Nephrostomy Tubes, Testicular Surgery Allergies: Coded Allergies: glyburide (Verified Allergy, Severe, RASH, 10/05/17) amlodipine (Verified Allergy, Unknown, 10/05/17) rhabdomyolysis atorvastatin (Verified Allergy, Unknown, 10/05/17) rhabdomyolysis metformin (Verified Allergy, Unknown, Rash, 10/05/17) pravastatin (Verified Allergy, Unknown, 10/05/17) rhabdomyolysis simvastatin (Verified Allergy, Unknown, 10/05/17) rhabdomyolysis Family History PAST FAMILY HISTORY: Reviewed. No h/o DM or CAD Social History PAST SOCIAL HISTORY: Negative for alcohol, tobacco or drugs Physical Exam Vital Signs Vital Signs Date Time Temp Pulse Resp B/P (MAP) Pulse Ox O2 Delivery O2 Flow Rate FiO2 10/06/17 19:07 69 16 124/73 (90) 97 Room Air 10/06/17 18:39 73 18 165/88 (113) 100 Room Air 10/06/17 18:00 79 16 135/69 (91) 100 Room Air 10/06/17 16:30 77 18 149/69 (95) 100 Room Air 10/06/17 16:10 18 100 Room Air 10/06/17 16:05 98.9 75 19 121/83 (96) 99 Physical Exam PE: GENERAL: Middle-aged white male in no acute distress, confused. HEENT: PERRLA, EOMI. No scleral icterus or conjunctival pallor. No lid lag or facial droop. CARDIOVASCULAR: Regular rate and rhythm. No obvious murmurs to auscultation. No chest tenderness to palpation. RESPIRATORY: No obvious rhonchi or wheezing. Clear to auscultation. Breath sounds equal bilaterally. GASTROINTESTINAL: Abdomen soft, non-tender, nondistended. BS normal. Bilateral nephrostomy tubes. MUSCULOSKELETAL: Extremities without clubbing, cyanosis, or edema. No obvious deformities. NEUROLOGICAL: Awake, alert, confused. No focal neurologic deficits. Moving both upper and lower extremities spontaneously. Laboratory Laboratory Tests Test 10/06/17 16:20 White Blood Count 9.6 Red Blood Count 3.65 Hemoglobin 9.1 Hematocrit 29.1 Mean Corpuscular Volume 79.7 Mean Corpuscular Hemoglobin 25.0 Mean Corpuscular Hemoglobin Concent 31.4 Red Cell Distribution Width 16.3 Platelet Count 327 Mean Platelet Volume 7.8 Neutrophils (%) (Auto) 83.1 Lymphocytes (%) (Auto) 9.3 Monocytes (%) (Auto) 7.4 Eosinophils (%) (Auto) 0.0 Basophils (%) (Auto) 0.2 Neutrophils # (Auto) 8.0 Lymphocytes # (Auto) 0.9 Monocytes # (Auto) 0.7 Eosinophils # (Auto) 0.0 Basophils # (Auto) 0.0 CBC Comment DIFF FINAL Differential Comment Prothrombin Time 11.5 Prothromb Time International Ratio 1.1 Activated Partial Thromboplast Time 26.6 Blood Urea Nitrogen 35 Creatinine 1.81 Random Glucose 404 Total Protein 7.5 Albumin 2.4 Calcium Level 7.9 Alkaline Phosphatase 142 Aspartate Amino Transf (AST/SGOT) 11 Alanine Aminotransferase (ALT/SGPT) 9 Total Bilirubin 0.2 Sodium Level 132 Potassium Level 4.4 Chloride Level 101 Carbon Dioxide Level 18.3 Anion Gap 13 Estimat Glomerular Filtration Rate 39 Lactic Acid Level 1.5 Ammonia 28 Total Creatine Kinase 50 Troponin I LESS THAN 0.02 Thyroid Stimulating Hormone 3rd Gen 0.945 B-Hydroxybutyrate 0.43 Date/Time Source Procedure Growth Status 10/06/17 16:25 Blood Peripheral Aerobic Blood Culture Pending Received 10/06/17 16:25 Blood Peripheral Anaerobic Blood Culture Pending Received Result Diagram: 10/06/17 1620 10/06/17 1620 Caprini VTE Risk Assessment Caprini VTE Risk Assessment: No/Low Risk (score <= 1) Caprini Risk Assessment Model Point Value = 1 Point Value = 2 Point Value = 3 Point Value = 5 Age 41-60 Minor surgery BMI > 25 kg/m2 Swollen legs Varicose veins or History of unexplained or recurrent spontaneous Oral contraceptives or hormone replacement Sepsis (< 1 month) Serious lung disease, including pneumonia (< 1 month) Abnormal pulmonary function Acute myocardial infarction Congestive heart failure (< 1 month) History of inflammatory bowel disease Medical patient at bed rest Age 61-74 Arthroscopic surgery Major open surgery (> 45 min) Laparoscopic surgery (> 45 min) Malignancy Confined to bed (> 72 hours) Immobilizing plaster cast Central venous access Age >= 75 History of VTE Family history of VTE Factor V Leiden Prothrombin [id number] Lupus anticoagulant Anticardiolipin antibodies Elevated serum homocysteine Heparin-induced thrombocytopenia Other congenital or acquired thrombophilia Stroke (< 1 month) Elective arthroplasty Hip, pelvis, or leg fracture Acute spinal cord injury (< 1 month) Prophylaxis Regimen Total Risk Factor Score Risk Level Prophylaxis Regimen 0-1 Low Early ambulation 2 Moderate Order ONE of the following: *Sequential Compression Device (SCD) *Heparin 5000 units SQ BID 3-4 Higher Order ONE of the following medications: *Heparin 5000 units SQ TID *Enoxaparin/Lovenox 40 mg SQ daily (WT < 150 kg, CrCl > 30 mL/min) *Enoxaparin/Lovenox 30 mg SQ daily (WT < 150 kg, CrCl > 10-29 mL/min) *Enoxaparin/Lovenox 30 mg SQ BID (WT < 150 kg, CrCl > 30 mL/min) AND/OR *Sequential Compression Device (SCD) 5 or more Highest Order ONE of the following medications: *Heparin 5000 units SQ TID (Preferred with Epidurals) *Enoxaparin/Lovenox 40 mg SQ daily (WT < 150 kg, CrCl > 30 mL/min) *Enoxaparin/Lovenox 30 mg SQ daily (WT < 150 kg, CrCl > 10-29 mL/min) *Enoxaparin/Lovenox 30 mg SQ BID (WT < 150 kg, CrCl > 30 mL/min) AND *Sequential Compression Device (SCD) Assessment and Plan Problem List: (1) Encephalopathy ICD Code: G93.40 - Encephalopathy, unspecified (2) SAH (subarachnoid hemorrhage) ICD Code: I60.9 - Nontraumatic subarachnoid hemorrhage, unspecified (3) UTI (urinary tract infection) ICD Code: N39.0 - Urinary tract infection, site not specified (4) DM (diabetes mellitus) ICD Code: E11.9 - Type 2 diabetes mellitus without complications Assessment and Plan A/P: 1. Encephalopathy: per report, pt w/ worsening AMS noted by family, unclear etiology, likely combination of UTI w/ SAH and underlying Prostate CA. Per records, pt reportedly on Hospice, unable to confirm at this time, will need to discuss further w/ family. Neuro checks. Ativan prn for agitation. 2. SAH: CT Head 10/06/17 w/ small subarachnoid hemorrhage, repeat CT today w/ unchanged small SAH, images reviewed by me. Discussed w/ Date Night Sitter, ok for medical admission as bleeding unchanged despite AMS. Will check repeat CT Head in am to eval for further progression. Seizure Precautions. 3. UTI: U/a w/ UTI, persistent, will continue w/ IV Abx. Previous bilateral nephrostomy tube placement 06/2018 for bilateral hydronephrosis, Renal US w/ right-sided nephrostomy stent, no hydronephrosis, left kidney normal w/ resolved hydronephrosis. Urology Consult for further eval. 4. DM: Uncontrolled. Sliding scale w/ Accu-Cheks. 5. DVT Prophylaxis: Pharmacologic contraindication due to SAH 6. Social work for DC planning as needed. As above, will need to discuss w/ family regarding Hospice/placement 7. Case discussed with the ER physician at length, lab/record/imaging reviewed by nc Physician Certification 2 Midnight Certification Type: Admission for Inpatient Services Order for Inpatient Services The services are ordered in accordance with Medicare regulations or non- Medicare payer requirements, as applicable. In the case of services not specified as inpatient-only, they are appropriately provided as inpatient services in accordance with the 2-midnight benchmark. Estimated LOS (days): 2 days is the estimated time the patient will need to remain in the hospital, assuming treatment plan goals are met and no additional complications. Post-Hospital Plan: Not yet determined Estella Mathias MD Oct 06, 2017 20:02
[2017-10-06] MEDS: INSULIN ASPART SUPPLEMENTAL SCALE SQ SCH (21:05)
[2017-10-06] MEDS: HALOPERIDOL 1 MG TAB PO SCH (22:00)
[2017-10-06 22:13] VITALS: BP 167/71; PULSE 62; RESP 16; O2SAT 98
[2017-10-06] MEDS: LORazepam 2 MG/ML VIAL IV PUSH PRN (22:19)
[2017-10-06] MEDS: DOCUSATE SODIUM 50 MG/SENNA 8.6 MG TAB PO SCH (22:44)
[2017-10-06] MEDS: SODIUM CHLOR 0.9% 1000 ML INJ 1,000 ML IV SCH (22:45)
[2017-10-06] MEDS: SODIUM CHLORIDE 0.9% FLUSH 10 ML FLUSH IV FLUSH SCH (22:54)
[2017-10-06] MEDS: TAMSULOSIN HCL 0.4 MG CAP PO SCH (22:54)
[2017-10-07] VITALS (18 sets, daily range): BP systolic 137–225; BP diastolic 72–106; PULSE 65–80; RESP 15–24; TEMP 97.4–98.4; O2SAT 94–98
[2017-10-07] MEDS: LORazepam 2 MG/ML VIAL IV PUSH PRN (01:00)
[2017-10-07] MEDS: cefTRIAXone INJ 1,000 MG in SODIUM CHLORIDE 0.9% INJ 100 ML IV SCH (05:54)
[2017-10-07 06:10] LABS: AUTOMATED NEUTROPHIL # 6.6 TH/MM3 (1.8-7.7); BASOPHIL % 0.5 % (0.0-2.0); EOSINOPHIL # 0.2 TH/MM3 (0-0.4); EOSINOPHIL % 1.8 % (0.0-4.0); HEMATOCRIT 28.3 % (39.0-51.0); HEMOGLOBIN 9.1 GM/DL (13.0-17.0); LYMPH % 15.9 % (9.0-44.0); LYMPHOCYTE # 1.5 TH/MM3 (1.0-4.8); MEAN CELL VOLUME 79.6 FL (80.0-100.0); MEAN CORPUSCULAR HEMOGLOBIN 25.7 PG (27.0-34.0); MEAN CORPUSCULAR HGB CONC 32.3 % (32.0-36.0); MEAN PLATELET VOLUME 7.5 FL (7.0-11.0); MONO % 10.1 % (0.0-8.0); MONOCYTE # 0.9 TH/MM3 (0-0.9); NEUT % 71.7 % (16.0-70.0); PLATELET COUNT 308 TH/MM3 (150-450); RED BLOOD COUNT 3.55 MIL/MM3 (4.50-5.90); RED CELL DISTRIBUTION WIDTH 15.9 % (11.6-17.2); WHITE BLOOD COUNT 9.3 TH/MM3 (4.0-11.0)
[2017-10-07 06:39] LABS: ALBUMIN 1.8 GM/DL (3.4-5.0); BICARBONATE 20.6 MEQ/L (21.0-32.0); CALCIUM-PROTEIN CORRECTED 7.6 MG/DL (8.5-10.1); CREATININE 1.04 MG/DL (0.60-1.30); TOTAL BILIRUBIN ADULT 0.2 MG/DL (0.2-1.0)
--- NOTE | 2017-10-07 07:45 | RADRPT ---
EXAM DATE/TIME: 10/07/2017 07:26 [place] COMPARISON: CT BRAIN W/O CONTRAST, October 06, 2017, 18:06. INDICATIONS : Follow up SAH RADIATION DOSE: 56.35 CTDIvol (mGy) MEDICAL HISTORY : unable to obtain SURGICAL HISTORY : Unable to obtain ENCOUNTER: Subsequent ACUITY: 2 days PAIN SCALE: 0/10 LOCATION: cranial TECHNIQUE: Multiple contiguous axial images were obtained of the head. Using automated exposure control and adj ustment of the mA and/or kV according to patient size, radiation dose was kept as low as reasonably a chievable to obtain optimal diagnostic quality images. DICOM format image data is available electro nically for review and comparison. FINDINGS: CEREBRUM: Stable linear area of high density blood identified within the subarachnoid space of the right pariet al lobe. No evidence of an patient's edema. No evidence of sulcal effacement. The magana-white matter d emonstrates normal differentiation. The ventricles are normal in size. No intra-axial or extra-axial fluid collection. POSTERIOR FOSSA: The cerebellum and brainstem are intact. The 4th ventricle is midline. The cerebellopontine angle i s unremarkable. EXTRACRANIAL: The visualized portion of the orbits is intact. SKULL: The calvaria is intact. No evidence of skull fracture. CONCLUSION: Stable focal area of subarachnoid blood identified in the sulci of the right parietal lobe. No eviden ce of significant adjacent edema.. Carolina Lehman MD on October 07, 2017 at 7:40 Board Certified Radiologist. This report was verified electronically.
[2017-10-07] MEDS: SODIUM CHLORIDE 0.9% FLUSH 10 ML FLUSH IV FLUSH SCH ×2 (08:05→20:56)
[2017-10-07] MEDS: HALOPERIDOL 1 MG TAB PO SCH ×2 (08:49→21:04)
[2017-10-07] MEDS: DOCUSATE SODIUM 50 MG/SENNA 8.6 MG TAB PO SCH ×3 (09:04→20:53)
[2017-10-07] MEDS: INSULIN ASPART SUPPLEMENTAL SCALE SQ SCH ×4 (09:04→20:51)
[2017-10-07] MEDS: ESCITALOPRAM OXALATE 10 MG TAB PO SCH (09:04)
--- NOTE | 2017-10-07 09:27 | PD.PSY.CON ---
Provisional Diagnosis Admission Date Oct 06, 2017 at 20:00 [place]. Delirium History of Present Illness Service Psychiatry Consult Requested By Estella Mathias MD Reason for Consult [facility] Primary Care Physician No Primary Care Physician HPI Patient is a 57 y/o man, with a past psychiatric diagnosis of anxiety as per chart, PMH significant for HTN, HLD, CHF, CAD, prostate Ca, hydronephrosis with nephrostomy tubes, DM who who recently left AMA but returned and admitted to the medical service for continued altered mental status , encephalopathy, SAH, UTI and DM with noted bizarre behavior and confusion which psychiatry was consulted for evaluation as patient currently under Bradley act due to concern of patient's inability to care for self. Discussion with nursing staff reported that patient was agitated last night requiring Ativan x 1 and restraints due to agitation. Patient was found lying in hospital bed, no longer in restraints, able to provide his last name to marketing underwriter but refused to continue to engage in interview. Patient continued to go back to sleep despite multiple attempts to engage him in conversation; also noticed to be awake but appearing to be asleep. Patient at this time refusing to cooperate in interview. Past Family Social History Coded Allergies: glyburide (Verified Allergy, Severe, RASH, 10/05/17) amlodipine (Verified Allergy, Unknown, 10/05/17) rhabdomyolysis atorvastatin (Verified Allergy, Unknown, 10/05/17) rhabdomyolysis metformin (Verified Allergy, Unknown, Rash, 10/05/17) pravastatin (Verified Allergy, Unknown, 10/05/17) rhabdomyolysis simvastatin (Verified Allergy, Unknown, 10/05/17) rhabdomyolysis Active Scripts Hydrocodone-Acetaminophen (Hydrocodone-Acetaminophen) 10-325 mg Tab, 1 TAB PO Q6HR Y for PAIN SCALE 5 TO 10, #120 TAB Prov:Kapil Eldridge MD 02/19/17 Commode 3-in-1 (Commode 3-in-1) 1 Mis Mis, EA .ROUTE DIRECTED, #1 0 Refills Prov:Kapil Eldridge MD 02/19/17 Reported Medications Morphine Sulfate (Morphine Sulfate) 20 Mg/Ml Syringe, 0.75-1 ML PO Q4HR Y for BREAKTHROUGH PAIN 10/05/17 Sucralfate (Sucralfate) 1 Gram Tab, 1 GM PO TID for Duodenal ulcer, #90 TAB 0 Refills on empty stomach 10/05/17 Haloperidol (Haloperidol) 1 Mg Tab, 1 MG PO BID, TAB 0 Refills 10/05/17 Hydromorphone (Hydromorphone) 4 Mg Tab, 6 MG PO Q4HR Y for PAIN, TAB 0 Refills 10/05/17 Hydromorphone (Hydromorphone) 4 Mg Tab, 4 MG PO Q4H Y for PAIN, TAB 0 Refills 10/05/17 Hydromorphone (Hydromorphone) 2 Mg Tab, 2 MG PO Q4H Y for PAIN, TAB 0 Refills 10/05/17 Sennosides-Docusate Sodium (Senna-Plus) 8.6-50 Mg Tab, 3 TAB PO BID for Constipation, TAB 0 Refills 10/05/17 Prochlorperazine Maleate (Prochlorperazine Maleate) 10 Mg Tab, 10 MG PO Q4H Y for NAUSEA OR VOMITING, TAB 0 Refills 10/05/17 Omeprazole (Omeprazole) 20 Mg Tab, 20 MG PO BID, #30 TAB 0 Refills 10/05/17 Alprazolam (Alprazolam) 0.5 Mg Tab, 0.5 MG PO Q4H Y for ANXIETY, TAB 0 Refills 10/05/17 Escitalopram (Escitalopram) 10 Mg Tab, 10 MG PO DAILY, #30 TAB 0 Refills 10/05/17 Lisinopril (Lisinopril) 20 Mg Tab, 20 MG PO DAILY, #30 TAB 0 Refills 08/29/17 Insulin Glargine Inj (Lantus Inj) 1,000 Unit/10 Ml Vial, 15 UNITS SQ HS for Blood Sugar Management, VIAL 0 Refills 08/29/17 Carvedilol (Coreg) 12.5 Mg Tab, 12.5 MG PO BID, #60 TAB 0 Refills 08/29/17 Insulin Aspart Inj (Novolog Flexpen Inj) 300 Unit/3 Ml Pen, SQ TIDAC for Blood Sugar Management, #1 PEN 0 Refills PER SLIDING SCALE 02/17/17 Gabapentin (Gabapentin) 300 Mg Cap, 300 MG PO BID, #60 CAP 0 Refills 07/26/16 Tamsulosin (Flomax) 0.4 Mg Cap, 0.4 MG PO HS for Manage Prostate Problems, #30 CAP 0 Refills 07/26/16 Discontinued Reported Medications Haloperidol (Haloperidol) 1 Mg Tab, 1 MG PO Q4HR Y for ANXIETY AND/OR AGITATION , TAB 0 Refills 10/05/17 Discontinued Scripts Walker with Front Wheels (Walker with Front Wheels) 1 Mis Lexi, EA .ROUTE DIRECTED, #1 0 Refills Prov:Kapil Eldridge MD 02/19/17 Wheelchair (Wheelchair) 1 Mis Lexi, EA .ROUTE DIRECTED, #1 0 Refills Prov:Kapil Eldridge MD 02/19/17 Current Medications Medications (Trade) Dose Ordered Sig/Jerzy Route Start Time Stop Time Status Last Admin (D50w (Vial) Inj) 50 ml UNSCH PRN IV PUSH 10/06/17 20:00 (Glucagon Inj) 1 mg UNSCH PRN OTHER 10/06/17 20:00 (NovoLOG SUPPLEMENTAL SCALE) 1 ACHS SLIDING SCALE SQ 10/06/17 21:00 10/07/17 09:04 Ceftriaxone Sodium 1000 mg/ Sodium Chloride 100 ml @ 200 mls/hr Q24H IV 10/07/17 06:00 10/07/17 05:54 (Ativan Inj) 1 mg Q2H PRN IV PUSH 10/06/17 20:00 10/07/17 01:00 Sodium Chloride 1,000 ml @ 100 mls/hr Q10H IV 10/06/17 21:00 10/06/17 22:45 (NS Flush) 2 ml UNSCH PRN IV FLUSH 10/06/17 20:00 (NS Flush) 2 ml BID IV FLUSH 10/06/17 21:00 10/06/17 22:54 (Zofran Inj) 4 mg Q6H PRN IVP 10/06/17 20:00 (Tylenol) 650 mg Q6H PRN PO 10/06/17 20:00 (Nichole-Colace) 1 tab BID PO 10/06/17 21:00 10/07/17 09:04 (Milk Of Magnesia Liq) 30 ml Q12H PRN PO 10/06/17 20:00 (Senokot) 17.2 mg Q12H PRN PO 10/06/17 20:00 (Dulcolax Supp) 10 mg DAILY PRN RECTAL 10/06/17 20:00 (Lactulose Liq) 30 ml DAILY PRN PO 10/06/17 20:00 (Lexapro) 10 mg DAILY PO 10/07/17 09:00 10/07/17 09:04 (Haldol) 1 mg BID PO 10/06/17 21:00 10/07/17 08:49 (Flomax) 0.4 mg HS PO 10/06/17 21:00 10/06/17 22:54 Physical Exam Vital Signs Vital Signs Date Time Temp Pulse Resp B/P (MAP) Pulse Ox O2 Delivery O2 Flow Rate FiO2 10/07/17 07:10 73 15 154/72 (99) 94 Room Air 10/06/17 16:05 98.9 I/O 10/07/17 10/07/17 10/08/17 08:00 16:00 00:00 Intake Total 100 ml Output Total 600 ml 600 ml Balance -500 ml -600 ml Lab Results Test 10/06/17 16:20 10/07/17 05:15 White Blood Count 9.6 TH/MM3 9.3 TH/MM3 Red Blood Count 3.65 MIL/MM3 3.55 MIL/MM3 Hemoglobin 9.1 GM/DL 9.1 GM/DL Hematocrit 29.1 % 28.3 % Mean Corpuscular Volume 79.7 FL 79.6 FL Mean Corpuscular Hemoglobin 25.0 PG 25.7 PG Mean Corpuscular Hemoglobin Concent 31.4 % 32.3 % Red Cell Distribution Width 16.3 % 15.9 % Platelet Count 327 TH/MM3 308 TH/MM3 Mean Platelet Volume 7.8 FL 7.5 FL Neutrophils (%) (Auto) 83.1 % 71.7 % Lymphocytes (%) (Auto) 9.3 % 15.9 % Monocytes (%) (Auto) 7.4 % 10.1 % Eosinophils (%) (Auto) 0.0 % 1.8 % Basophils (%) (Auto) 0.2 % 0.5 % Neutrophils # (Auto) 8.0 TH/MM3 6.6 TH/MM3 Lymphocytes # (Auto) 0.9 TH/MM3 1.5 TH/MM3 Monocytes # (Auto) 0.7 TH/MM3 0.9 TH/MM3 Eosinophils # (Auto) 0.0 TH/MM3 0.2 TH/MM3 Basophils # (Auto) 0.0 TH/MM3 0.0 TH/MM3 CBC Comment DIFF FINAL DIFF FINAL Differential Comment Prothrombin Time 11.5 SEC Prothromb Time International Ratio 1.1 RATIO Activated Partial Thromboplast Time 26.6 SEC Blood Urea Nitrogen 35 MG/DL 26 MG/DL Creatinine 1.81 MG/DL 1.04 MG/DL Random Glucose 404 MG/DL 137 MG/DL Total Protein 7.5 GM/DL 6.0 GM/DL Albumin 2.4 GM/DL 1.8 GM/DL Calcium Level 7.9 MG/DL 7.0 MG/DL Alkaline Phosphatase 142 U/L 110 U/L Aspartate Amino Transf (AST/SGOT) 11 U/L 8 U/L Alanine Aminotransferase (ALT/SGPT) 9 U/L 7 U/L Total Bilirubin 0.2 MG/DL 0.2 MG/DL Sodium Level 132 MEQ/L 141 MEQ/L Potassium Level 4.4 MEQ/L 3.3 MEQ/L Chloride Level 101 MEQ/L 113 MEQ/L Carbon Dioxide Level 18.3 MEQ/L 20.6 MEQ/L Anion Gap 13 MEQ/L 7 MEQ/L Estimat Glomerular Filtration Rate 39 ML/MIN 73 ML/MIN Lactic Acid Level 1.5 mmol/L Ammonia 28 MCMOL/L Total Creatine Kinase 50 U/L Troponin I LESS THAN 0.02 NG/ML Thyroid Stimulating Hormone 3rd Gen 0.945 uIU/ML B-Hydroxybutyrate 0.43 MMOL/L Protein Corrected Calcium 7.6 MG/DL Date/Time Source Procedure Growth Status 10/06/17 16:25 Blood Peripheral Aerobic Blood Culture Pending Received 10/06/17 16:25 Blood Peripheral Anaerobic Blood Culture Pending Received Mental Status Examination Appearance: Appropriate Consciousness: Somnolent Speech: Other (limited) Language: Adequate, Other (limited) Attention and Concentration: Inadequate Mood: Other (unable to assess due to limited cooperation in interview) Affect: Other (somnolent) Thought Process & Associations: Other (unable to assess due to limited cooperation in interview) Thought Content: Other (unable to assess due to limited cooperation in interview) Hallucination Type: Other (unable to assess due to limited cooperation in interview) Delusion Type: Other (unable to assess due to limited cooperation in interview) Insight: Poor Judgment: Poor Assessment & Plan Problem List: (1) Delirium due to another medical condition ICD Codes: F05 - Delirium due to known physiological condition Status: Acute (2) Encephalopathy ICD Codes: G93.40 - Encephalopathy, unspecified (3) Subarachnoid hemorrhage ICD Codes: I60.9 - Nontraumatic subarachnoid hemorrhage, unspecified Status: Acute Assessment & Plan Patient is a 57 y/o man, with a past psychiatric diagnosis of anxiety as per chart, PMH significant for HTN, HLD, CHF, CAD, prostate Ca, hydronephrosis with nephrostomy tubes, DM who who recently left AMA but returned and admitted to the medical service for continued altered mental status , encephalopathy, SAH, UTI and DM with noted bizarre behavior and confusion which psychiatry was consulted for evaluation as patient currently under Bradley act due to concern of patient's inability to care for self. Patient with limited cooperative in interview, despite multiple attempts to engage patient in conversation. Patient may be exhibiting bizarre behavior along with confusion that may be secondary to delirium but other etiologies must be ruled out. Due to limited evaluation, patient should continue to be under Bradley act for safety, and patient will be continued to be followed by psychiatry for re- evaluation when patient is more cooperative with interview. Consult appreciated. Lan Paredes MD Oct 07, 2017 09:27
[2017-10-07] MEDS: SODIUM CHLOR 0.9% 1000 ML INJ 1,000 ML IV SCH ×2 (13:13→17:56)
[2017-10-07 13:30] LABS: BACTERIA, URINE OCC /hpf; BILIRUBIN, URINE NEG (NEG); BLOOD, URINE MOD (NEG); GLUCOSE,URINE TRACE mg/dL (NEG); HYALINE CAST, URINE 2 /lpf (RARE); KETONE, URINE NEG (NEG); MUCUS URINE FEW /lpf (OCC); NITRITE,URINE NEG (NEG); SQUAMOUS EPITHELIAL CELL URINE <1 /hpf (0-5); URINE COLOR LIGHT-YELLOW (YELLW/STRAW); URINE LEUKOCYTE ESTERASE MOD (NEG)
[2017-10-07] MEDS: cloNIDine HCL 0.1 MG TAB PO PRN ×2 (14:14→22:50)
[2017-10-07] MEDS: hydrALAZINE HCL 25 MG TAB PO PRN ×2 (14:14→19:21)
--- NOTE | 2017-10-07 14:17 | HHI.PR ---
Subjective Remarks This is a 57-year-old male with a PMH of Anxiety, HTN, Hyperlipidemia, CHF ( Echo 06/16/2017 w/ EF 30-35%), CAD, Stage IV Prostate CA, reportedly on Hospice , Hydronephrosis s/p Bilateral Nephrostomy Tubes and DM who was brought to the ER by EMS at Daughter's request for AMS as she is unable to care for him. Pt initially presented to ER on 10/05/[address] Head w/ small SAH, + orthostatic hypotension and UTI. Admitted to ICU, however pt ultimately LEFT AMA. Returns now for worsening AMS per Daughter and apparent fall. Pt poor historian, unable to provide much history. CT Head today notes unchanged small SAH, discussed w/ Lpn Cma, pt ok for medical admission as bleeding unchanged. On arrival, BP 135/69, HR 79, O2 sat 100% RA, Afebrile. CBC essentially at baseline. Creatinine 1.89, previously 1.4904 618. BS 404. Lactic Acid normal. Ammonia 28. Troponin negative. INR 1.1. UA positive for UTI. CT Head with persistent unchanged subarachnoid hemorrhage as above. CXR poor inspiratory chest mild basilar interstitial vascular prominence. While in ER, pt confused, agitated ultimately requiring restraints. 4-8 PATIENT REMAINS CONFUSED BLOOD PRESSURE REMAINS ELEVATED NEEDS HOSPICE TREAT UTI PALLIATIVE CARE CONSULTS Objective Vitals Vital Signs Date Time Temp Pulse Resp B/P (MAP) Pulse Ox O2 Delivery O2 Flow Rate FiO2 10/07/17 13:16 72 21 225/98 (140) 95 Room Air 10/07/17 09:30 71 176/90 (118) 10/07/17 07:10 73 15 154/72 (99) 94 Room Air 10/07/17 05:23 65 16 167/106 (126) 10/07/17 04:27 65 16 180/88 (118) 98 Room Air 10/07/17 00:12 65 16 147/86 (106) 98 Room Air 10/06/17 22:13 62 16 167/71 (103) 98 Room Air 10/06/17 19:07 69 16 124/73 (90) 97 Room Air 10/06/17 18:39 73 18 165/88 (113) 100 Room Air 10/06/17 18:00 79 16 135/69 (91) 100 Room Air 10/06/17 16:30 77 18 149/69 (95) 100 Room Air 10/06/17 16:10 18 100 Room Air 10/06/17 16:05 98.9 75 19 121/83 (96) 99 I/O 10/06/17 10/06/17 10/06/17 10/07/17 10/07/17 10/07/17 07:00 15:00 23:00 07:00 15:00 23:00 Intake Total 1100 ml Output Total 600 ml 1400 ml Balance -600 ml -300 ml Intake IV Total 1100 ml Output Urine Total 600 ml 1400 ml # Voids 1 0 0 Result Diagram: 10/07/17 0515 10/07/17 0515 Other Results Laboratory Tests Test 10/06/17 16:20 10/07/17 05:15 10/07/17 13:00 White Blood Count 9.6 TH/MM3 9.3 TH/MM3 Red Blood Count 3.65 MIL/MM3 3.55 MIL/MM3 Hemoglobin 9.1 GM/DL 9.1 GM/DL Hematocrit 29.1 % 28.3 % Mean Corpuscular Volume 79.7 FL 79.6 FL Mean Corpuscular Hemoglobin 25.0 PG 25.7 PG Mean Corpuscular Hemoglobin Concent 31.4 % 32.3 % Red Cell Distribution Width 16.3 % 15.9 % Platelet Count 327 TH/MM3 308 TH/MM3 Mean Platelet Volume 7.8 FL 7.5 FL Neutrophils (%) (Auto) 83.1 % 71.7 % Lymphocytes (%) (Auto) 9.3 % 15.9 % Monocytes (%) (Auto) 7.4 % 10.1 % Eosinophils (%) (Auto) 0.0 % 1.8 % Basophils (%) (Auto) 0.2 % 0.5 % Neutrophils # (Auto) 8.0 TH/MM3 6.6 TH/MM3 Lymphocytes # (Auto) 0.9 TH/MM3 1.5 TH/MM3 Monocytes # (Auto) 0.7 TH/MM3 0.9 TH/MM3 Eosinophils # (Auto) 0.0 TH/MM3 0.2 TH/MM3 Basophils # (Auto) 0.0 TH/MM3 0.0 TH/MM3 CBC Comment DIFF FINAL DIFF FINAL Differential Comment Prothrombin Time 11.5 SEC Prothromb Time International Ratio 1.1 RATIO Activated Partial Thromboplast Time 26.6 SEC Blood Urea Nitrogen 35 MG/DL 26 MG/DL Creatinine 1.81 MG/DL 1.04 MG/DL Random Glucose 404 MG/DL 137 MG/DL Total Protein 7.5 GM/DL 6.0 GM/DL Albumin 2.4 GM/DL 1.8 GM/DL Calcium Level 7.9 MG/DL 7.0 MG/DL Alkaline Phosphatase 142 U/L 110 U/L Aspartate Amino Transf (AST/SGOT) 11 U/L 8 U/L Alanine Aminotransferase (ALT/SGPT) 9 U/L 7 U/L Total Bilirubin 0.2 MG/DL 0.2 MG/DL Sodium Level 132 MEQ/L 141 MEQ/L Potassium Level 4.4 MEQ/L 3.3 MEQ/L Chloride Level 101 MEQ/L 113 MEQ/L Carbon Dioxide Level 18.3 MEQ/L 20.6 MEQ/L Anion Gap 13 MEQ/L 7 MEQ/L Estimat Glomerular Filtration Rate 39 ML/MIN 73 ML/MIN Lactic Acid Level 1.5 mmol/L Ammonia 28 MCMOL/L Total Creatine Kinase 50 U/L Troponin I LESS THAN 0.02 NG/ML Thyroid Stimulating Hormone 3rd Gen 0.945 uIU/ML B-Hydroxybutyrate 0.43 MMOL/L Protein Corrected Calcium 7.6 MG/DL Urine Color LIGHT-YELLOW Urine Turbidity CLEAR Urine pH 6.0 Urine Specific [place] 1.011 Urine Protein 30 mg/dL Urine Glucose (UA) TRACE mg/dL Urine Ketones NEG mg/dL Urine Occult Blood MOD Urine Nitrite NEG Urine Bilirubin NEG Urine Urobilinogen LESS THAN 2.0 MG/DL Urine Leukocyte Esterase MOD Urine RBC 150 /hpf Urine WBC 28 /hpf Urine Squamous Epithelial Cells <1 /hpf Urine Bacteria OCC /hpf Urine Hyaline Casts 2 /lpf Urine Mucus FEW /lpf Microscopic Urinalysis Comment CATH-CULTURE IND Imaging Last Impressions Head CT 10/07/17 0600 Signed Impressions: Service Date/Time: Saturday, October 07, 2017 07:26 - CONCLUSION: Stable focal area of subarachnoid blood identified in the sulci of the right parietal lobe. No evidence of significant adjacent edema.. Carolina Lehman MD Chest X-Ray 10/06/17 1601 Signed Impressions: Service Date/Time: Friday, October 06, 2017 16:23 - CONCLUSION: Poor inspiratory chest with mild basilar interstitial vascular prominence. Mild congestion is not excluded. Otherwise stable chest with no other evidence of acute process. Asaf Carney MD Objective Remarks GENERAL: Awake and alert oriented 1 lots of confusion somewhat cooperative can follow some commands SKIN: Warm and dry. HEAD: Atraumatic. Normocephalic. EYES: Pupils equal and round. No scleral icterus. No injection or drainage. Extraocular muscles intact ENT: No nasal bleeding or discharge. Mucous membranes pink and moist. Tongue is midline NECK: Trachea midline. No JVD. Supple CARDIOVASCULAR: Regular rate and rhythm. S1-S2 no S3 or S4 RESPIRATORY: No accessory muscle use. Clear to auscultation. Breath sounds equal bilaterally. GASTROINTESTINAL: Abdomen soft, non-tender, nondistended. Hepatic and splenic margins not palpable. Bilateral nephrostomy tubes in place but yellow drainage MUSCULOSKELETAL: Extremities without clubbing, cyanosis, or edema. No obvious deformities. NEUROLOGICAL: Awake and alert. No obvious cranial nerve deficits. Motor grossly within normal limits. 4 out of 5 muscle strength in the arms and legs. Normal speech. PSYCHIATRIC: INAppropriate mood and affect; insight and judgment ABnormal. Procedures NONE Medications and IVs Current Medications Lorazepam (Ativan Inj) 2 mg STK-MED ONCE .ROUTE ; Start 10/06/17 at 19:27; Stop 10/06/17 at 19:28; Status DC Lorazepam (Ativan Inj) 1 mg ONCE ONCE IV PUSH Last administered on 10/06/17at 19 :47; Start 10/06/17 at 19:45; Stop 10/06/17 at 19:46; Status DC Dextrose (D50w (Vial) Inj) 50 ml UNSCH PRN IV PUSH HYPOGLYCEMIA-SEE COMMENTS; Start 10/06/17 at 20:00 Glucagon (Glucagon Inj) 1 mg UNSCH PRN OTHER HYPOGLYCEMIA-SEE COMMENTS; Start 10/06/17 at 20:00 Insulin Aspart (NovoLOG SUPPLEMENTAL SCALE) 1 ACHS SLIDING SCALE SQ Last administered on 10/07/17at 09:04; Start 10/06/17 at 21:00 Ceftriaxone Sodium 1000 mg/ Sodium Chloride 100 ml @ 200 mls/hr Q24H IV Last administered on 10/07/17at 05:54; Start 10/07/17 at 06:00 Lorazepam (Ativan Inj) 1 mg Q2H PRN IV PUSH AGITATION Last administered on at 01:00; Start 10/06/17 at 20:00 Sodium Chloride 1,000 ml @ 100 mls/hr Q10H IV Last administered on 10/07/17at 13 :13; Start 10/06/17 at 21:00 Sodium Chloride (NS Flush) 2 ml UNSCH PRN IV FLUSH FLUSH AFTER USING IV ACCESS ; Start 10/06/17 at 20:00 Sodium Chloride (NS Flush) 2 ml BID IV FLUSH Last administered on 10/06/17at 22: 54; Start 10/06/17 at 21:00 Ondansetron HCl (Zofran Inj) 4 mg Q6H PRN IVP NAUSEA OR VOMITING; Start at 20:00 Acetaminophen (Tylenol) 650 mg Q6H PRN PO FEVER/PAIN SCALE 1 TO 2; Start at 20:00 Senna/Docusate Sodium (Nichole-Colace) 1 tab BID PO Last administered on 10/07/17at 09:04; Start 10/06/17 at 21:00 Magnesium Hydroxide (Milk Of Magnesia Liq) 30 ml Q12H PRN PO Mild constipation ; Start 10/06/17 at 20:00 Sennosides (Senokot) 17.2 mg Q12H PRN PO Moderate constipation; Start 10/06/17 at 20:00 Bisacodyl (Dulcolax Supp) 10 mg DAILY PRN RECTAL SEVERE CONSITIPATION; Start at 20:00 Lactulose (Lactulose Liq) 30 ml DAILY PRN PO SEVERE CONSITIPATION; Start at 20:00 Escitalopram Oxalate (Lexapro) 10 mg DAILY PO Last administered on 10/07/17at 09: 04; Start 10/07/17 at 09:00 Haloperidol (Haldol) 1 mg BID PO Last administered on 10/07/17at 08:49; Start 10/06/17 at 21:00 Tamsulosin HCl (Flomax) 0.4 mg HS PO Last administered on 10/06/17at 22:54; Start 10/06/17 at 21:00 Clonidine (Catapres) 0.1 mg Q4H PRN PO SBP>160, DBP>90; Start 10/07/17 at 14:00 Hydralazine HCl (Apresoline) 25 mg Q8HR PRN PO SYS BP GREATER THAN 160 MMHG; Start 10/07/17 at 14:00 A/P Problem List: (1) Encephalopathy ICD Code: G93.40 - Encephalopathy, unspecified (2) SAH (subarachnoid hemorrhage) ICD Code: I60.9 - Nontraumatic subarachnoid hemorrhage, unspecified (3) UTI (urinary tract infection) ICD Code: N39.0 - Urinary tract infection, site not specified (4) DM (diabetes mellitus) ICD Code: E11.9 - Type 2 diabetes mellitus without complications Assessment and Plan 1. Encephalopathy: per report, pt w/ worsening AMS noted by family, unclear etiology, likely combination of UTI w/ SAH and underlying Prostate CA. Per records, pt reportedly on Hospice, unable to confirm at this time, will need to discuss further w/ family. Neuro checks. Ativan prn for agitation. 2. SAH: CT Head 10/06/17 w/ small subarachnoid hemorrhage, repeat CT today w/ unchanged small SAH, images reviewed by me. Discussed w/ Lpn Cma, rubén for medical admission as bleeding unchanged despite AMS. Will check repeat CT Head in am to eval for further progression. Seizure Precautions. 3. UTI: U/a w/ UTI, persistent, will continue w/ IV Abx. Previous bilateral nephrostomy tube placement 06/2018 for bilateral hydronephrosis, Renal US w/ right-sided nephrostomy stent, no hydronephrosis, left kidney normal w/ resolved hydronephrosis. Urology Consult for further eval. 4. DM: Uncontrolled. Sliding scale w/ Accu-Cheks. 5. DVT Prophylaxis: Pharmacologic contraindication due to SAH 6. Social work for DC planning as needed. As above, will need to discuss w/ family regarding Hospice/placement We will get physical therapy and occupational therapy to eval and treat We will get hospice evaluation as well as palliative care evaluate CURRENTLY UNDER PUGH ACT- HAS BEEN SEEN BY PSYCHIATRY Discharge Planning Pending safe discharge Amarjit Albarran DO Oct 07, 2017 14:17
[2017-10-07] MEDS: CARVEDILOL 12.5 MG TAB PO SCH ×2 (15:01→20:54)
[2017-10-07] MEDS: LISINOPRIL 20 MG TAB PO SCH (15:02)
[2017-10-07] MEDS: SUCRALFATE 1 GM TAB PO SCH (18:04)
[2017-10-07] MEDS: GABAPENTIN 300 MG CAP PO SCH (20:54)
[2017-10-07] MEDS: TAMSULOSIN HCL 0.4 MG CAP PO SCH (20:54)
[2017-10-07] MEDS: ACETAMINOPHEN 325 MG TAB PO PRN (22:49)
[2017-10-08] VITALS (27 sets, daily range): BP systolic 150–176; BP diastolic 78–99; PULSE 65–81; RESP 18–20; TEMP 98–98.9; O2SAT 94–99
[2017-10-08] MEDS: SODIUM CHLOR 0.9% 1000 ML INJ 1,000 ML IV SCH (03:00)
[2017-10-08] MEDS: cefTRIAXone INJ 1,000 MG in SODIUM CHLORIDE 0.9% INJ 100 ML IV SCH (05:17)
[2017-10-08] MEDS: INSULIN ASPART SUPPLEMENTAL SCALE SQ SCH ×4 (08:49→21:00)
[2017-10-08] MEDS: ESCITALOPRAM OXALATE 10 MG TAB PO SCH (08:50)
[2017-10-08] MEDS: HALOPERIDOL 1 MG TAB PO SCH ×2 (08:50→21:24)
[2017-10-08] MEDS: DOCUSATE SODIUM 50 MG/SENNA 8.6 MG TAB PO SCH ×3 (08:50→21:25)
[2017-10-08] MEDS: SUCRALFATE 1 GM TAB PO SCH ×3 (08:50→17:50)
[2017-10-08] MEDS: LISINOPRIL 20 MG TAB PO SCH (08:51)
[2017-10-08] MEDS: CARVEDILOL 12.5 MG TAB PO SCH ×2 (08:51→21:24)
[2017-10-08] MEDS: cloNIDine HCL 0.1 MG TAB PO PRN (08:51)
[2017-10-08] MEDS: GABAPENTIN 300 MG CAP PO SCH ×2 (08:51→21:25)
[2017-10-08] MEDS: SODIUM CHLORIDE 0.9% FLUSH 10 ML FLUSH IV FLUSH SCH ×2 (08:52→21:25)
[2017-10-08 09:01] LABS: AUTOMATED NEUTROPHIL # 6.2 TH/MM3 (1.8-7.7); BASOPHIL % 0.2 % (0.0-2.0); EOSINOPHIL # 0.1 TH/MM3 (0-0.4); EOSINOPHIL % 1.3 % (0.0-4.0); HEMATOCRIT 30.9 % (39.0-51.0); HEMOGLOBIN 9.9 GM/DL (13.0-17.0); LYMPH % 11.3 % (9.0-44.0); LYMPHOCYTE # 0.9 TH/MM3 (1.0-4.8); MEAN CORPUSCULAR HEMOGLOBIN 25.1 PG (27.0-34.0); MEAN CORPUSCULAR HGB CONC 32.1 % (32.0-36.0); MEAN PLATELET VOLUME 7.3 FL (7.0-11.0); MONO % 9.6 % (0.0-8.0); MONOCYTE # 0.8 TH/MM3 (0-0.9); NEUT % 77.6 % (16.0-70.0); PLATELET COUNT 384 TH/MM3 (150-450); RED BLOOD COUNT 3.96 MIL/MM3 (4.50-5.90); RED CELL DISTRIBUTION WIDTH 15.9 % (11.6-17.2)
--- NOTE | 2017-10-08 09:27 | EKG ---
Date Performed: 10/06/2017 Time Performed: 16:29:24 PTAGE: 57 years EKG: Sinus rhythm POSSIBLE LEFT ATRIAL ENLARGEMENT POSSIBLE LEFT VENTRICULAR HYPERTROPHY NONSPECIFIC ST & T-WAVE ABNOR MALITY PROLONGED QT INTERVAL ABNORMAL ECG PREVIOUS TRACING : 10/05/2017 23.30 Since previous tracing, no significant change. DOCTOR: Jose Feliz Interpretating Date/Time 10/08/2017 09:27:08
[2017-10-08 10:05] LABS: ALBUMIN 2.2 GM/DL (3.4-5.0); ALKALINE PHOSPHATASE 135 U/L (45-117); ALT (GPT) 8 U/L (12-78); AST (GOT) 9 U/L (15-37); BICARBONATE 23.8 MEQ/L (21.0-32.0); BLOOD UREA NITROGEN 17 MG/DL (7-18); CALCIUM 8.2 MG/DL (8.5-10.1); CHLORIDE 103 MEQ/L (98-107); CREATININE 1.05 MG/DL (0.60-1.30); FREE T4 1.24 NG/DL (0.76-1.46); GLOMERULAR FILTRATION RATE 72 ML/MIN (>89); GLUCOSE,RANDOM 174 MG/DL (74-106); MAGNESIUM 1.6 MG/DL (1.5-2.5); PHOSPHORUS 2.1 MG/DL (2.5-4.9); SODIUM (NA) 136 MEQ/L (136-145); TOTAL BILIRUBIN ADULT 0.4 MG/DL (0.2-1.0); TOTAL PROTEIN 7.3 GM/DL (6.4-8.2)
--- NOTE | 2017-10-08 10:51 | HHI.PYPN ---
Subjective Remarks Patient was seen today for psychiatric reevaluation. Patient is calm, cooperative, getting ready for physical rehabilitation. She explains that he feels much better today. He denies depressive symptoms, denies anhedonia, denies hopelessness, denies helplessness, denies suicidal and homicidal ideation , he denies visual and auditory hallucinations. The patient is logical, coherent and relevant. Diffusely confused at times, but oriented 3. No agitation, no aggressive behavior reported in the last 24 hours. Compliant with medications, he says that he is motivated to continue medical treatment, but he really wants to go back home as soon as possible. Review of Systems Constitutional: DENIES: Diaphoretic episodes, Fatigue, Fever, Weight gain, Weight loss, Chills, Dizziness, Change in appetite, Night Sweats Endocrine: DENIES: Heat/cold intolerance, Polydipsia, Polyuria, Polyphagia Eyes: DENIES: Blurred vision, Diplopia, Eye inflammation, Eye pain, Vision loss , Photosensitivity, Double Vision Ears, nose, mouth, throat: DENIES: Tinnitus, Hearing loss, Vertigo, Nasal discharge, Oral lesions, Throat pain, Hoarseness, Ear Pain, Running Nose, Epistaxis, Sinus Pain, Toothache, Odynophagia Respiratory: DENIES: Apneas, Cough, Snoring, Wheezing, Hemoptysis, Sputum production, Shortness of breath Cardiovascular: DENIES: Chest pain, Palpitations, Syncope, Dyspnea on Exertion , PND, Lower Extremity Edema, Orthopnea, Claudication Gastrointestinal: DENIES: Abdominal pain, Black stools, Bloody stools, Constipation, Diarrhea, Nausea, Vomiting, Difficulty Swallowing, Anorexia Genitourinary: DENIES: Sexual dysfunction, Urinary frequency, Urinary incontinence, Urgency, Hematuria, Dysuria, Nocturia, Penile Discharge, Testicular Pain, Testicular Swelling Musculoskeletal: DENIES: Joint pain, Muscle aches, Stiffness, Joint Swelling, Back pain, Neck pain Integumentary: DENIES: Abnormal pigmentation, Nail changes, Pruritus, Rash Hematologic/lymphatic: DENIES: Bruising, Lymphadenopathy Immunologic/allergic: DENIES: Eczema, Urticaria Neurologic: DENIES: Abnormal gait, Headache, Localized weakness, Paresthesias, Seizures, Speech Problems, Tremor, Poor Balance Psychiatric: DENIES: Anxiety, Confusion, Mood changes, Depression, Hallucinations, Agitation, Suicidal Ideation, Homicidal Ideation, Delusions Mental Status Examination Appearance: Appropriate Consciousness: Alert Orientation: x4 Motor Activity: Normal gait Language: Adequate Attention and Concentration: Adequate, Inadequate Memory: Impaired Mood: Appropriate Affect: Appropriate Thought Process & Associations: Intact Thought Content: Appropriate Hallucination Type: None Suicidal Ideation: No Suicidal Plan: No Suicidal Intention: No Homicidal Ideation: No Homicidal Plan: No Homicidal Intention: No Insight: Fair Judgment: Impulsive Results Labs Test 10/07/17 13:00 10/08/17 07:18 Urine Color LIGHT-YELLOW Urine Turbidity CLEAR Urine pH 6.0 Urine Specific [place] 1.011 Urine Protein 30 mg/dL Urine Glucose (UA) TRACE mg/dL Urine Ketones NEG mg/dL Urine Occult Blood MOD Urine Nitrite NEG Urine Bilirubin NEG Urine Urobilinogen LESS THAN 2.0 MG/DL Urine Leukocyte Esterase MOD Urine RBC 150 /hpf Urine WBC 28 /hpf Urine Squamous Epithelial Cells <1 /hpf Urine Bacteria OCC /hpf Urine Hyaline Casts 2 /lpf Urine Mucus FEW /lpf Microscopic Urinalysis Comment CATH-CULTURE IND White Blood Count 8.0 TH/MM3 Red Blood Count 3.96 MIL/MM3 Hemoglobin 9.9 GM/DL Hematocrit 30.9 % Mean Corpuscular Volume 78.0 FL Mean Corpuscular Hemoglobin 25.1 PG Mean Corpuscular Hemoglobin Concent 32.1 % Red Cell Distribution Width 15.9 % Platelet Count 384 TH/MM3 Mean Platelet Volume 7.3 FL Neutrophils (%) (Auto) 77.6 % Lymphocytes (%) (Auto) 11.3 % Monocytes (%) (Auto) 9.6 % Eosinophils (%) (Auto) 1.3 % Basophils (%) (Auto) 0.2 % Neutrophils # (Auto) 6.2 TH/MM3 Lymphocytes # (Auto) 0.9 TH/MM3 Monocytes # (Auto) 0.8 TH/MM3 Eosinophils # (Auto) 0.1 TH/MM3 Basophils # (Auto) 0.0 TH/MM3 CBC Comment DIFF FINAL Differential Comment Blood Urea Nitrogen 17 MG/DL Creatinine 1.05 MG/DL Random Glucose 174 MG/DL Total Protein 7.3 GM/DL Albumin 2.2 GM/DL Calcium Level 8.2 MG/DL Phosphorus Level 2.1 MG/DL Magnesium Level 1.6 MG/DL Alkaline Phosphatase 135 U/L Aspartate Amino Transf (AST/SGOT) 9 U/L Alanine Aminotransferase (ALT/SGPT) 8 U/L Total Bilirubin 0.4 MG/DL Sodium Level 136 MEQ/L Potassium Level 3.6 MEQ/L Chloride Level 103 MEQ/L Carbon Dioxide Level 23.8 MEQ/L Anion Gap 9 MEQ/L Estimat Glomerular Filtration Rate 72 ML/MIN Free Thyroxine 1.24 NG/DL Thyroid Stimulating Hormone 3rd Gen 2.700 uIU/ML Date/Time Source Procedure Growth Status 10/06/17 16:25 Blood Peripheral Aerobic Blood Culture - Preliminary NO GROWTH IN 1 DAY Resulted 10/06/17 16:25 Blood Peripheral Anaerobic Blood Culture - Preliminary NO GROWTH IN 1 DAY Resulted 10/07/17 13:00 Urine Catheterized Urine Urine Culture Pending Received Vitals/IOs Vital Signs Date Time Temp Pulse Resp B/P (MAP) Pulse Ox O2 Delivery O2 Flow Rate FiO2 10/08/17 07:15 98.9 75 18 176/99 (124) 97 10/07/17 15:36 Room Air Intake and Output 10/08/17 10/08/17 10/09/17 08:00 16:00 00:00 Intake Total 220 ml Output Total 1350 ml Balance -1130 ml Assessment & Plan Problem List: (1) Delirium due to another medical condition ICD Codes: F05 - Delirium due to known physiological condition Status: Acute Assessment & Plan: At the moment of this evaluation the patient does not present any neuropsychiatric symptoms that require immediate psychiatric intervention. The patient denies depression, denies anxiety, denies yvonne and psychosis, no agitation, no aggressive behavior present. Patient with limited cognition due to subarachnoid hemorrhage, but oriented 3, able to cooperate with psychiatric evaluation. He does not meet criteria for involuntary psychiatric admission at this moment. Continue current psychotropics. (2) Encephalopathy ICD Codes: G93.40 - Encephalopathy, unspecified (3) Subarachnoid hemorrhage ICD Codes: I60.9 - Nontraumatic subarachnoid hemorrhage, unspecified Status: Acute Assessment & Plan Estimated LOS: days Justification for Cont. Inpt. Patient does not meet criteria for involuntary psychiatric admission. Please lift Torey Brooks MD Oct 08, 2017 10:51
--- NOTE | 2017-10-08 11:26 | HHI.PR ---
Subjective Remarks This is a 57-year-old male with a PMH of Anxiety, HTN, Hyperlipidemia, CHF ( Echo 06/16/2017 w/ EF 30-35%), CAD, Stage IV Prostate CA, reportedly on Hospice , Hydronephrosis s/p Bilateral Nephrostomy Tubes and DM who was brought to the ER by EMS at Daughter's request for AMS as she is unable to care for him. Pt initially presented to ER on 10/05/[address] Head w/ small SAH, + orthostatic hypotension and UTI. Admitted to ICU, however pt ultimately LEFT AMA. Returns now for worsening AMS per Daughter and apparent fall. Pt poor historian, unable to provide much history. CT Head today notes unchanged small SAH, discussed w/ Dental Floss Packer, pt ok for medical admission as bleeding unchanged. On arrival, BP 135/69, HR 79, O2 sat 100% RA, Afebrile. CBC essentially at baseline. Creatinine 1.89, previously 1.4904 618. BS 404. Lactic Acid normal. Ammonia 28. Troponin negative. INR 1.1. UA positive for UTI. CT Head with persistent unchanged subarachnoid hemorrhage as above. CXR poor inspiratory chest mild basilar interstitial vascular prominence. While in ER, pt confused, agitated ultimately requiring restraints. 4-8 PATIENT REMAINS CONFUSED BLOOD PRESSURE REMAINS ELEVATED NEEDS HOSPICE TREAT UTI PALLIATIVE CARE CONSULTS 4-9 PUGH ACT HAS BEEN LIFTED BY PSYCHIATRY BLOOD PRESSURE STILL IS BORDERLINE AM LABS DW RN AND PT AND CM TRANSFER OFF FLOOR MONITOR BLOOD PRESSURE Objective Vitals Vital Signs Date Time Temp Pulse Resp B/P (MAP) Pulse Ox O2 Delivery O2 Flow Rate FiO2 10/08/17 07:15 98.9 75 18 176/99 (124) 97 10/08/17 07:00 70 10/08/17 06:06 76 10/08/17 05:22 71 10/08/17 04:17 75 10/08/17 03:06 98.0 68 20 158/93 (114) 96 10/08/17 03:00 75 10/08/17 02:31 74 10/08/17 01:27 75 10/08/17 00:52 72 20 150/78 (102) 97 10/08/17 00:10 75 10/08/17 00:00 20 10/07/17 23:06 97.7 75 19 191/106 (134) 98 10/07/17 23:00 76 10/07/17 22:00 76 10/07/17 21:20 80 10/07/17 20:00 78 10/07/17 19:22 98.4 77 18 185/97 (126) 98 10/07/17 19:00 71 10/07/17 17:45 97.4 70 18 157/95 (115) 96 10/07/17 17:35 68 10/07/17 16:50 (93) 10/07/17 16:33 71 137/72 (93) 10/07/17 15:36 73 24 165/79 (107) 98 Room Air 10/07/17 15:02 75 24 196/95 (128) 98 Room Air 10/07/17 13:16 72 21 225/98 (140) 95 Room Air I/O 10/07/17 10/07/17 10/07/17 10/08/17 10/08/17 10/08/17 07:00 15:00 23:00 07:00 15:00 23:00 Intake Total 1100 ml 100 ml 220 ml Output Total 600 ml 1400 ml 450 ml 1350 ml Balance -600 ml -300 ml -350 ml -1130 ml Intake Oral 100 ml 120 ml IV Total 1100 ml 100 ml Output Urine Total 600 ml 1400 ml 450 ml Drainage Total 1350 ml # Voids 0 0 0 # Bowel Movements 1 Result Diagram: 10/08/1718 10/08/17717 Other Results Laboratory Tests Test 10/06/17 16:20 10/07/17 05:15 10/07/17 13:00 10/08/17 07:18 White Blood Count 9.6 TH/MM3 9.3 TH/MM3 8.0 TH/MM3 Red Blood Count 3.65 MIL/MM3 3.55 MIL/MM3 3.96 MIL/MM3 Hemoglobin 9.1 GM/DL 9.1 GM/DL 9.9 GM/DL Hematocrit 29.1 % 28.3 % 30.9 % Mean Corpuscular Volume 79.7 FL 79.6 FL 78.0 FL Mean Corpuscular Hemoglobin 25.0 PG 25.7 PG 25.1 PG Mean Corpuscular Hemoglobin Concent 31.4 % 32.3 % 32.1 % Red Cell Distribution Width 16.3 % 15.9 % 15.9 % Platelet Count 327 TH/MM3 308 TH/MM3 384 TH/MM3 Mean Platelet Volume 7.8 FL 7.5 FL 7.3 FL Neutrophils (%) (Auto) 83.1 % 71.7 % 77.6 % Lymphocytes (%) (Auto) 9.3 % 15.9 % 11.3 % Monocytes (%) (Auto) 7.4 % 10.1 % 9.6 % Eosinophils (%) (Auto) 0.0 % 1.8 % 1.3 % Basophils (%) (Auto) 0.2 % 0.5 % 0.2 % Neutrophils # (Auto) 8.0 TH/MM3 6.6 TH/MM3 6.2 TH/MM3 Lymphocytes # (Auto) 0.9 TH/MM3 1.5 TH/MM3 0.9 TH/MM3 Monocytes # (Auto) 0.7 TH/MM3 0.9 TH/MM3 0.8 TH/MM3 Eosinophils # (Auto) 0.0 TH/MM3 0.2 TH/MM3 0.1 TH/MM3 Basophils # (Auto) 0.0 TH/MM3 0.0 TH/MM3 0.0 TH/MM3 CBC Comment DIFF FINAL DIFF FINAL DIFF FINAL Differential Comment Prothrombin Time 11.5 SEC Prothromb Time International Ratio 1.1 RATIO Activated Partial Thromboplast Time 26.6 SEC Blood Urea Nitrogen 35 MG/DL 26 MG/DL 17 MG/DL Creatinine 1.81 MG/DL 1.04 MG/DL 1.05 MG/DL Random Glucose 404 MG/DL 137 MG/DL 174 MG/DL Total Protein 7.5 GM/DL 6.0 GM/DL 7.3 GM/DL Albumin 2.4 GM/DL 1.8 GM/DL 2.2 GM/DL Calcium Level 7.9 MG/DL 7.0 MG/DL 8.2 MG/DL Alkaline Phosphatase 142 U/L 110 U/L 135 U/L Aspartate Amino Transf (AST/SGOT) 11 U/L 8 U/L 9 U/L Alanine Aminotransferase (ALT/SGPT) 9 U/L 7 U/L 8 U/L Total Bilirubin 0.2 MG/DL 0.2 MG/DL 0.4 MG/DL Sodium Level 132 MEQ/L 141 MEQ/L 136 MEQ/L Potassium Level 4.4 MEQ/L 3.3 MEQ/L 3.6 MEQ/L Chloride Level 101 MEQ/L 113 MEQ/L 103 MEQ/L Carbon Dioxide Level 18.3 MEQ/L 20.6 MEQ/L 23.8 MEQ/L Anion Gap 13 MEQ/L 7 MEQ/L 9 MEQ/L Estimat Glomerular Filtration Rate 39 ML/MIN 73 ML/MIN 72 ML/MIN Lactic Acid Level 1.5 mmol/L Ammonia 28 MCMOL/L Total Creatine Kinase 50 U/L Troponin I LESS THAN 0.02 NG/ML Thyroid Stimulating Hormone 3rd Gen 0.945 uIU/ML 2.700 uIU/ML B-Hydroxybutyrate 0.43 MMOL/L Protein Corrected Calcium 7.6 MG/DL Urine Color LIGHT-YELLOW Urine Turbidity CLEAR Urine pH 6.0 Urine Specific [place] 1.011 Urine Protein 30 mg/dL Urine Glucose (UA) TRACE mg/dL Urine Ketones NEG mg/dL Urine Occult Blood MOD Urine Nitrite NEG Urine Bilirubin NEG Urine Urobilinogen LESS THAN 2.0 MG/DL Urine Leukocyte Esterase MOD Urine RBC 150 /hpf Urine WBC 28 /hpf Urine Squamous Epithelial Cells <1 /hpf Urine Bacteria OCC /hpf Urine Hyaline Casts 2 /lpf Urine Mucus FEW /lpf Microscopic Urinalysis Comment CATH-CULTURE IND Phosphorus Level 2.1 MG/DL Magnesium Level 1.6 MG/DL Free Thyroxine 1.24 NG/DL Imaging Last Impressions Head CT 10/07/17 0600 Signed Impressions: Service Date/Time: Saturday, October 07, 2017 07:26 - CONCLUSION: Stable focal area of subarachnoid blood identified in the sulci of the right parietal lobe. No evidence of significant adjacent edema.. Carolina Lehman MD Chest X-Ray 10/06/17 1601 Signed Impressions: Service Date/Time: Friday, October 06, 2017 16:23 - CONCLUSION: Poor inspiratory chest with mild basilar interstitial vascular prominence. Mild congestion is not excluded. Otherwise stable chest with no other evidence of acute process. Asaf Carney MD Objective Remarks GENERAL: Awake and alert oriented 2 LESS confusion somewhat cooperative can follow some commands SKIN: Warm and dry. HEAD: Atraumatic. Normocephalic. EYES: Pupils equal and round. No scleral icterus. No injection or drainage. Extraocular muscles intact ENT: No nasal bleeding or discharge. Mucous membranes pink and moist. Tongue is midline NECK: Trachea midline. No JVD. Supple CARDIOVASCULAR: Regular rate and rhythm. S1-S2 no S3 or S4 RESPIRATORY: No accessory muscle use. Clear to auscultation. Breath sounds equal bilaterally. GASTROINTESTINAL: Abdomen soft, non-tender, nondistended. Hepatic and splenic margins not palpable. Bilateral nephrostomy tubes in place but yellow drainage MUSCULOSKELETAL: Extremities without clubbing, cyanosis, or edema. No obvious deformities. NEUROLOGICAL: Awake and alert. No obvious cranial nerve deficits. Motor grossly within normal limits. 4 out of 5 muscle strength in the arms and legs. Normal speech. PSYCHIATRIC: INAppropriate mood and affect; insight and judgment ABnormal. Procedures NONE Medications and IVs Current Medications Lorazepam (Ativan Inj) 2 mg STK-MED ONCE .ROUTE ; Start 10/06/17 at 19:27; Stop 10/06/17 at 19:28; Status DC Lorazepam (Ativan Inj) 1 mg ONCE ONCE IV PUSH Last administered on 10/06/17at 19 :47; Start 10/06/17 at 19:45; Stop 10/06/17 at 19:46; Status DC Dextrose (D50w (Vial) Inj) 50 ml UNSCH PRN IV PUSH HYPOGLYCEMIA-SEE COMMENTS; Start 10/06/17 at 20:00 Glucagon (Glucagon Inj) 1 mg UNSCH PRN OTHER HYPOGLYCEMIA-SEE COMMENTS; Start 10/06/17 at 20:00 Insulin Aspart (NovoLOG SUPPLEMENTAL SCALE) 1 ACHS SLIDING SCALE SQ Last administered on 10/08/17at 08:49; Start 10/06/17 at 21:00 Ceftriaxone Sodium 1000 mg/ Sodium Chloride 100 ml @ 200 mls/hr Q24H IV Last administered on 10/08/17at 05:17; Start 10/07/17 at 06:00 Lorazepam (Ativan Inj) 1 mg Q2H PRN IV PUSH AGITATION Last administered on at 01:00; Start 10/06/17 at 20:00 Sodium Chloride 1,000 ml @ 100 mls/hr Q10H IV Last administered on 10/07/17at 17 :56; Start 10/06/17 at 21:00 Sodium Chloride (NS Flush) 2 ml UNSCH PRN IV FLUSH FLUSH AFTER USING IV ACCESS ; Start 10/06/17 at 20:00 Sodium Chloride (NS Flush) 2 ml BID IV FLUSH Last administered on 10/08/17at 08: 52; Start 10/06/17 at 21:00 Ondansetron HCl (Zofran Inj) 4 mg Q6H PRN IVP NAUSEA OR VOMITING; Start at 20:00 Acetaminophen (Tylenol) 650 mg Q6H PRN PO FEVER/PAIN SCALE 1 TO 2 Last administered on 10/07/17 22:49; Start 10/06/17 at 20:00 Senna/Docusate Sodium (Nichole-Colace) 1 tab BID PO Last administered on 10/08/17 08:50; Start 10/06/17 at 21:00 Magnesium Hydroxide (Milk Of Magnesia Liq) 30 ml Q12H PRN PO Mild constipation ; Start 10/06/17 at 20:00 Sennosides (Senokot) 17.2 mg Q12H PRN PO Moderate constipation; Start 10/06/17 at 20:00 Bisacodyl (Dulcolax Supp) 10 mg DAILY PRN RECTAL SEVERE CONSITIPATION; Start at 20:00 Lactulose (Lactulose Liq) 30 ml DAILY PRN PO SEVERE CONSITIPATION; Start at 20:00 Escitalopram Oxalate (Lexapro) 10 mg DAILY PO Last administered on 10/08/17 08: 50; Start 10/07/17 at 09:00 Haloperidol (Haldol) 1 mg BID PO Last administered on 10/08/17 08:50; Start 10/06/17 at 21:00 Tamsulosin HCl (Flomax) 0.4 mg HS PO Last administered on 10/07/17 20:54; Start 10/06/17 at 21:00 Clonidine (Catapres) 0.1 mg Q4H PRN PO SBP>160, DBP>90 Last administered on 10/08 08:51; Start 10/07/17 at 14:00 Hydralazine HCl (Apresoline) 25 mg Q8HR PRN PO SYS BP GREATER THAN 160 MMHG Last administered on 10/07/17 19:21; Start 10/07/17 at 14:00 Carvedilol (Coreg) 12.5 mg BID PO Last administered on 10/08/17 08:51; Start at 14:30 Gabapentin (Neurontin) 300 mg BID PO Last administered on 10/08/17 08:51; Start 10/07/17 at 21:00 Lisinopril (Prinivil) 20 mg DAILY PO Last administered on 10/08/17at 08:51; Start 10/07/17 at 14:30 Senna/Docusate Sodium (Nichole-Colace) 3 tab BID PO Last administered on 10/08/17at 08:50; Start 10/07/17 at 21:00 Sucralfate (Carafate) 1 gm TID PO Last administered on 10/08/17at 08:50; Start at 18:00 A/P Problem List: (1) Encephalopathy ICD Code: G93.40 - Encephalopathy, unspecified (2) SAH (subarachnoid hemorrhage) ICD Code: I60.9 - Nontraumatic subarachnoid hemorrhage, unspecified (3) UTI (urinary tract infection) ICD Code: N39.0 - Urinary tract infection, site not specified (4) DM (diabetes mellitus) ICD Code: E11.9 - Type 2 diabetes mellitus without complications Assessment and Plan 1. Encephalopathy: per report, pt w/ worsening AMS noted by family, unclear etiology, likely combination of UTI w/ SAH and underlying Prostate CA. Per records, pt reportedly on Hospice, unable to confirm at this time, will need to discuss further w/ family. Neuro checks. Ativan prn for agitation. - SEEMS TO BE IMPROVED TODAY 2. SAH: CT Head 10/06/17 w/ small subarachnoid hemorrhage, repeat CT today w/ unchanged small SAH, images reviewed by me. Discussed w/ Dental Floss Packer, ok for medical admission as bleeding unchanged despite AMS. Will check repeat CT Head in am to eval for further progression. Seizure Precautions. BLOOD PRESSURE A LITTLE BETTER-- PUGH ACT LIFTED BY PSYCHIATRY 3. UTI: U/a w/ UTI, persistent, will continue w/ IV Abx. Previous bilateral nephrostomy tube placement 06/2018 for bilateral hydronephrosis, Renal US w/ right-sided nephrostomy stent, no hydronephrosis, left kidney normal w/ resolved hydronephrosis. Urology Consult for further eval. 4. DM: Uncontrolled. Sliding scale w/ Accu-Cheks. 5. DVT Prophylaxis: Pharmacologic contraindication due to SAH 6. Social work for DC planning as needed. As above, will need to discuss w/ family regarding Hospice/placement We will get physical therapy and occupational therapy to eval and treat We will get hospice evaluation as well as palliative care evaluate PUGH ACT HAS BEEN LIFTED PT AND OT Discharge Planning Pending safe discharge Amarjit Albarran DO Oct 08, 2017 11:26
--- NOTE | 2017-10-08 11:41 | PD.CONS ---
Consult Service Palliative Care Consult Requested By Dr Albarran Primary Care Physician No Primary Care Physician Reason for Consultation a. To assist with evaluation and management of symptoms including: abdominal pain, confusion b. To assist medical decision maker(s) with: better understanding of current medical conditions; weighing benefits/burdens of medical treatment options; making medical treatment decisions. HPI History of Present Illness This 57-year-old male presents to the ED 10/06/17 via EMS at the request of the daughter because "she cannot take care of him ". EMS reports daughter 9 months and having difficulty caring for the patient with multiple medical conditions. Patient reporting he is on hospice. Patient unable to explain why he is on hospice. EMS notes blood sugar over 400. Patient reporting weakness. Denied fever chills chest pain shortness of breath. * In the ED: UA positive for UTI. Troponin negative. Ammonia 28. Initial CT brain persistent unchanged subarachnoid hemorrhage. CXR= poor inspiratory chest mild basilar interstitial vascular prominence. ED provider notes extensive discussion with ex-, family, ED physician did not feel patient was able to understand and make decisions. ED provider recommended admission, possible Bradley act, psychiatry consulted. Neurosurgery consulted. CTA noted negative for PE. Repeat CT brain pending. * Initial psychiatric evaluation=patient refused to participate thus Bradley act was continued, Second psychiatry consultation for re-evaluation * Second psychiatry evaluation 10/08 = patient noted to have some cognitive deficits however also noted to be oriented 3. Cooperative. Bradley act lifted does not meet criteria for involuntary psychiatric admission. Patient seen in room, sitter is present. Patient is sleeping but arouses to verbal. He is partially to mostly oriented (able to name month, year, president , family, hospital --though at times refers to locations in [place] and then corrects himself as he is in [place] )however at times confuses details and then corrects himself. He has some limited insight into hospitalization he thinks he is here because of "cancer stuff ", review with him recent brain hemorrhage in follow-up for this, he does not seem to have memory of that recent diagnosis. Explore with him family he tells me that he recently remarried his ex- Denys, and that he has 2 twin daughters one who is expecting a child soon, and that during his recent hospitalization that is why he wanted to get out so he could be home with his family. Exploration of advanced directives and healthcare surrogate, he indicates that his daughter Afshan should be his healthcare surrogate that he would trust her to make decisions if he were unconscious. Will assist him to complete healthcare surrogate designation. He is generally cooperative though tells me that he is very tired and my exam is keeping him awake. He endorses vague abdominal pain which she is unable to further qualify he tells me in the past this is been relieved by use of Carafate. Gestures across middle abdomen. Abdominal exam benign though he verbalizes tenderness, no guarding. During exam he again asked me if he can go back to sleep because he is tired. ROS otherwise negative. ADDITIONAL HISTORY PER REVIEW OF EMR: He also apparently presented to the ED late in the evening before, on 10/05 for evaluation of a syncopal episode. Apparently had an unwitnessed fall patient with blood in his ear. EMS reported patient became dizzy, short of breath and loss consciousness. Patient reported to be under hospice services for stage IV prostate cancer, with metastasis to the bone. CT the brain shows a small amount of acute subarachnoid hemorrhage. This was discussed with Dr. Carey who recommended patient be placed in [facility]. Patient apparently fell a few days prior and had been having some balance and left ear issues. His hospice nurse apparently recommended he presented to the ED to be checked out. He then left AMA around 11 AM 10/06/17 with nursing documentation noting patient was escorted by a hospice clinical marketer. Apparently once he got home, family became aware and wanted more aggressive interventions/tx so elected to transfer him back to the hospital. Further review of records notes patient with a prolonged hospitalization June 2017 for which palliative followed during. During that admission he was admitted for urinary retention, GI bleed. He had obstructive uropathy status post partial transurethral resection of a bladder mass, and nephrostomy tubes. He already had known stage IV prostate cancer with metastasis to bone and bladder. He had significant physical deconditioning. He was not a candidate for outpatient palliative systemic therapy due to poor performance status. Initially family elected to maximize medical management with the goal to prolong survival and improve quality of life. Family later noted patient has a long history of nonadherence with medications and treatment recommendations they discussed hospice with palliative and elected hospice, went home with hospice support and family. Patient during that admission was supported by daughter Afshan, and ex- Denys. Function/Cognitive Trajectory Prior to June hospitalization independent with all ADLs. Ambulating with cane, alternating with Rollator walker. At that time reported to have some confusion. Leading up to this admission still semi-independent though required some assistance with medications, family prompts and guidance. Review of Systems Constitutional: COMPLAINS OF: Pain (Vague abdominal pain), DENIES: Fever, Weight loss Eyes: DENIES: Vision loss Ears, nose, mouth, throat: DENIES: Nasal discharge, Oral lesions, Throat pain Respiratory: DENIES: Cough, Shortness of breath Cardiovascular: DENIES: Chest pain, Dyspnea on Exertion, Lower Extremity Edema Gastrointestinal: COMPLAINS OF: Abdominal pain (Vague unable to further describe), DENIES: Constipation, Diarrhea, Nausea, Vomiting Musculoskeletal: DENIES: Joint pain, Muscle aches Neurologic: DENIES: Headache, Localized weakness, Speech Problems Psychiatric: COMPLAINS OF: Confusion (Per daughter) Past Family Social History Coded Allergies: glyburide (Verified Allergy, Severe, RASH, 10/05/17) amlodipine (Verified Allergy, Unknown, 10/05/17) rhabdomyolysis atorvastatin (Verified Allergy, Unknown, 10/05/17) rhabdomyolysis metformin (Verified Allergy, Unknown, Rash, 10/05/17) pravastatin (Verified Allergy, Unknown, 10/05/17) rhabdomyolysis simvastatin (Verified Allergy, Unknown, 10/05/17) rhabdomyolysis Past Medical History Anxiety Hypertension Hyperlipidemia CHF (Echo 06/16/2017 w/ EF 30-35%) CAD Stage IV Prostate CA, with metastasis to bone and bladder-elected hospice 2016 Hydronephrosis s/p Bilateral Nephrostomy Tubes 06/2017 Diabetes Past Surgical History Cardiac Stent 2007 Bilateral Nephrostomy Tubes Orchiectomy for testicular cancer Foot surgery . Reported Medications Hydrocodone-Acetaminophen 10-325 mg Tab 1 Tab PO Q6HR PRN Commode 3-in-1 (Device) 1 Mis Mis Ea .ROUTE DIRECTED Morphine Sulfate 20 Mg/Ml Syringe 0.75-1 Ml PO Q4HR PRN Sucralfate 1 Gram Tab 1 Gm PO TID on empty stomach Haloperidol 1 Mg Tab 1 Mg PO BID Hydromorphone (Hydromorphone HCl) 4 Mg Tab 6 Mg PO Q4HR PRN Hydromorphone (Hydromorphone HCl) 4 Mg Tab 4 Mg PO Q4H PRN Hydromorphone (Hydromorphone HCl) 2 Mg Tab 2 Mg PO Q4H PRN Senna-Plus (Sennosides-Docusate Sodium) 8.6-50 Mg Tab 3 Tab PO BID Prochlorperazine Maleate 10 Mg Tab 10 Mg PO Q4H PRN Omeprazole 20 Mg Tab 20 Mg PO BID Alprazolam 0.5 Mg Tab 0.5 Mg PO Q4H PRN Escitalopram (Escitalopram Oxalate) 10 Mg Tab 10 Mg PO DAILY Lisinopril 20 Mg Tab 20 Mg PO DAILY Lantus Inj (Insulin Glargine) 1,000 Unit/10 Ml Vial 15 Units SQ HS Coreg (Carvedilol) 12.5 Mg Tab 12.5 Mg PO BID Novolog Flexpen Inj (Insulin Aspart) 300 Unit/3 Ml Pen SQ TIDAC PER SLIDING SCALE Gabapentin 300 Mg Cap 300 Mg PO BID Flomax (Tamsulosin HCl) 0.4 Mg Cap 0.4 Mg PO HS . Current Medications Medications (Trade) Dose Ordered Sig/Jerzy Route Start Time Stop Time Status Last Admin (D50w (Vial) Inj) 50 ml UNSCH PRN IV PUSH 10/06/17 20:00 (Glucagon Inj) 1 mg UNSCH PRN OTHER 10/06/17 20:00 (NovoLOG SUPPLEMENTAL SCALE) 1 ACHS SLIDING SCALE SQ 10/06/17 21:00 10/08/17 08:49 Ceftriaxone Sodium 1000 mg/ Sodium Chloride 100 ml @ 200 mls/hr Q24H IV 10/07/17 06:00 10/08/17 05:17 (Ativan Inj) 1 mg Q2H PRN IV PUSH 10/06/17 20:00 10/07/17 01:00 Sodium Chloride 1,000 ml @ 100 mls/hr Q10H IV 10/06/17 21:00 10/07/17 17:56 (NS Flush) 2 ml UNSCH PRN IV FLUSH 10/06/17 20:00 (NS Flush) 2 ml BID IV FLUSH 10/06/17 21:00 10/08/17 08:52 (Zofran Inj) 4 mg Q6H PRN IVP 10/06/17 20:00 (Tylenol) 650 mg Q6H PRN PO 10/06/17 20:00 10/07/17 22:49 (Nichole-Colace) 1 tab BID PO 10/06/17 21:00 10/08/17 08:50 (Milk Of Magnesia Liq) 30 ml Q12H PRN PO 10/06/17 20:00 (Senokot) 17.2 mg Q12H PRN PO 10/06/17 20:00 (Dulcolax Supp) 10 mg DAILY PRN RECTAL 10/06/17 20:00 (Lactulose Liq) 30 ml DAILY PRN PO 10/06/17 20:00 (Lexapro) 10 mg DAILY PO 10/07/17 09:00 10/08/17 08:50 (Haldol) 1 mg BID PO 10/06/17 21:00 10/08/17 08:50 (Flomax) 0.4 mg HS PO 10/06/17 21:00 10/07/17 20:54 (Catapres) 0.1 mg Q4H PRN PO 10/07/17 14:00 10/08/17 08:51 (Apresoline) 25 mg Q8HR PRN PO 10/07/17 14:00 10/07/17 19:21 (Coreg) 12.5 mg BID PO 10/07/17 14:30 10/08/17 08:51 (Neurontin) 300 mg BID PO 10/07/17 21:00 10/08/17 08:51 (Prinivil) 20 mg DAILY PO 10/07/17 14:30 10/08/17 08:51 (Nichole-Colace) 3 tab BID PO 10/07/17 21:00 10/08/17 08:50 (Carafate) 1 gm TID PO 10/07/17 18:00 10/08/17 08:50 Family History Family history is positive for diabetes mellitus, heart disease, and hypertension Patient's father from pancreatic cancer Patient's mother has heart valve replacement . Substance Use Tobacco: Alcohol: Prescription med abuse: Illicits: Psychosocial History Previously 17 years, in 2017 however has remained with his ex- Denys. They were apparently planning to remarry per prior palliative conversations. Lived at home with ex-. Originally from [facility], moved to [place] in 1997. 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 Disabled due to heart disease. Has 2 twin daughters Alondra Cavanaugh. Spiritual/Cultural Factors [employer] . Living Will: Never completed Health Care Surrogate: Never completed Durable Power of Industrial Controls Technician: Never completed Ethical and Legal Issues Patient mental status fluctuates. Psychiatry consultation today notes that he has some cognitive deficits however is A and O 3 and does not meet Bradley act criteria. He may be able to participate in SHARED decision-making. During prior admission has reported to have advanced directives possibly naming the ex- Erna (this per Erna) however these documents have not been provided at this time. Has 2 daughters who would be appropriate legal proxy per [place] statutes. Appears daughters, ex- Erna have been working together in decision-making. Patient today 10/08/17 indicates he would want his daughter Afshan to be his primary decision maker, assisted him to complete healthcare surrogate designation documents. Copies provided to patient, faxed to medical records. Physical Exam Vital Signs Date Time Temp Pulse Resp B/P (MAP) Pulse Ox O2 Delivery O2 Flow Rate FiO2 10/08/17 07:15 98.9 75 18 176/99 (124) 97 10/08/17 07:00 70 10/08/17 06:06 76 10/08/17 05:22 71 10/08/17 04:17 75 10/08/17 03:06 98.0 68 20 158/93 (114) 96 10/08/17 03:00 75 10/08/17 02:31 74 10/08/17 01:27 75 10/08/17 00:52 72 20 150/78 (102) 97 10/08/17 00:10 75 10/08/17 00:00 20 10/07/17 23:06 97.7 75 19 191/106 (134) 98 10/07/17 23:00 76 10/07/17 22:00 76 10/07/17 21:20 80 10/07/17 20:00 78 10/07/17 19:22 98.4 77 18 185/97 (126) 98 10/07/17 19:00 71 10/07/17 17:45 97.4 70 18 157/95 (115) 96 10/07/17 17:35 68 10/07/17 16:50 (93) 10/07/17 16:33 71 137/72 (93) 10/07/17 15:36 73 24 165/79 (107) 98 Room Air 10/07/17 15:02 75 24 196/95 (128) 98 Room Air 10/07/17 13:16 72 21 225/98 (140) 95 Room Air Exam CONSTITUTIONAL/GENERAL: This is an adequately nourished patient, in no apparent distress. TUBES/LINES/DRAINS: Peripheral IV upper extremity, bilateral nephrostomy tubes SKIN: No jaundice, rashes, or lesions. No wounds seen anteriorly. Skin warm and dry HEAD: Atraumatic. Normocephalic. EYES: Pupils equal and round and reactive. Extraocular motions intact. No scleral icterus. No injection or drainage. Fundi not examined. ENT: Hearing grossly normal. Nose without bleeding or purulent drainage. Throat without visible erythema, exudates, masses, or lesions. NECK: Trachea midline. Supple, nontender. No palpable thyroid enlargement or nodularity. CARDIOVASCULAR: Regular rate and rhythm without murmur. No JVD. Peripheral pulses symmetric. RESPIRATORY/CHEST: Symmetric, unlabored respirations. On room air clear to auscultation. Breath sounds equal bilaterally. GASTROINTESTINAL: Abdomen soft, non-tender, nondistended. No palpable masses. Bowel sounds normoactive. GENITOURINARY: Without palpable bladder distension. Bilateral nephrostomy tubes draining dark yellow urine MUSCULOSKELETAL: Extremities without clubbing, cyanosis, or edema. No joint tenderness or effusion noted. NEUROLOGICAL: Initially sleeping and awakens easily. Mostly oriented x2-3, forgetful at times though at times is able to correct himself. Some very limited insight into hospitalization. Follows commands. Moving all 4 extremities PSYCHIATRIC: No obvious anxiety/depression. no apparent hallucinations or other psychotic thought process. Diagnostic Tests Laboratory Laboratory Tests Test 10/06/17 16:20 10/07/17 05:15 10/07/17 13:00 10/08/17 07:18 White Blood Count 9.6 TH/MM3 (4.0-11.0) 9.3 TH/MM3 (4.0-11.0) 8.0 TH/MM3 (4.0-11.0) Red Blood Count 3.65 MIL/MM3 (4.50-5.90) 3.55 MIL/MM3 (4.50-5.90) 3.96 MIL/MM3 (4.50-5.90) Hemoglobin 9.1 GM/DL (13.0-17.0) 9.1 GM/DL (13.0-17.0) 9.9 GM/DL (13.0-17.0) Hematocrit 29.1 % (39.0-51.0) 28.3 % (39.0-51.0) 30.9 % (39.0-51.0) Mean Corpuscular Volume 79.7 FL (80.0-100.0) 79.6 FL (80.0-100.0) 78.0 FL (80.0-100.0) Mean Corpuscular Hemoglobin 25.0 PG (27.0-34.0) 25.7 PG (27.0-34.0) 25.1 PG (27.0-34.0) Mean Corpuscular Hemoglobin Concent 31.4 % (32.0-36.0) 32.3 % (32.0-36.0) 32.1 % (32.0-36.0) Red Cell Distribution Width 16.3 % (11.6-17.2) 15.9 % (11.6-17.2) 15.9 % (11.6-17.2) Platelet Count 327 TH/MM3 (150-450) 308 TH/MM3 (150-450) 384 TH/MM3 (150-450) Mean Platelet Volume 7.8 FL (7.0-11.0) 7.5 FL (7.0-11.0) 7.3 FL (7.0-11.0) Neutrophils (%) (Auto) 83.1 % (16.0-70.0) 71.7 % (16.0-70.0) 77.6 % (16.0-70.0) Lymphocytes (%) (Auto) 9.3 % (9.0-44.0) 15.9 % (9.0-44.0) 11.3 % (9.0-44.0) Monocytes (%) (Auto) 7.4 % (0.0-8.0) 10.1 % (0.0-8.0) 9.6 % (0.0-8.0) Eosinophils (%) (Auto) 0.0 % (0.0-4.0) 1.8 % (0.0-4.0) 1.3 % (0.0-4.0) Basophils (%) (Auto) 0.2 % (0.0-2.0) 0.5 % (0.0-2.0) 0.2 % (0.0-2.0) Neutrophils # (Auto) 8.0 TH/MM3 (1.8-7.7) 6.6 TH/MM3 (1.8-7.7) 6.2 TH/MM3 (1.8-7.7) Lymphocytes # (Auto) 0.9 TH/MM3 (1.0-4.8) 1.5 TH/MM3 (1.0-4.8) 0.9 TH/MM3 (1.0-4.8) Monocytes # (Auto) 0.7 TH/MM3 (0-0.9) 0.9 TH/MM3 (0-0.9) 0.8 TH/MM3 (0-0.9) Eosinophils # (Auto) 0.0 TH/MM3 (0-0.4) 0.2 TH/MM3 (0-0.4) 0.1 TH/MM3 (0-0.4) Basophils # (Auto) 0.0 TH/MM3 (0-0.2) 0.0 TH/MM3 (0-0.2) 0.0 TH/MM3 (0-0.2) CBC Comment DIFF FINAL DIFF FINAL DIFF FINAL Differential Comment Prothrombin Time 11.5 SEC (9.8-11.6) Prothromb Time International Ratio 1.1 RATIO Activated Partial Thromboplast Time 26.6 SEC (24.3-30.1) Blood Urea Nitrogen 35 MG/DL (7-18) 26 MG/DL (7-18) 17 MG/DL (7-18) Creatinine 1.81 MG/DL (0.60-1.30) 1.04 MG/DL (0.60-1.30) 1.05 MG/DL (0.60-1.30) Random Glucose 404 MG/DL (74-106) 137 MG/DL (74-106) 174 MG/DL (74-106) Total Protein 7.5 GM/DL (6.4-8.2) 6.0 GM/DL (6.4-8.2) 7.3 GM/DL (6.4-8.2) Albumin 2.4 GM/DL (3.4-5.0) 1.8 GM/DL (3.4-5.0) 2.2 GM/DL (3.4-5.0) Calcium Level 7.9 MG/DL (8.5-10.1) 7.0 MG/DL (8.5-10.1) 8.2 MG/DL (8.5-10.1) Alkaline Phosphatase 142 U/L (45-117) 110 U/L (45-117) 135 U/L (45-117) Aspartate Amino Transf (AST/SGOT) 11 U/L (15-37) 8 U/L (15-37) 9 U/L (15-37) Alanine Aminotransferase (ALT/SGPT) 9 U/L (12-78) 7 U/L (12-78) 8 U/L (12-78) Total Bilirubin 0.2 MG/DL (0.2-1.0) 0.2 MG/DL (0.2-1.0) 0.4 MG/DL (0.2-1.0) Sodium Level 132 MEQ/L (136-145) 141 MEQ/L (136-145) 136 MEQ/L (136-145) Potassium Level 4.4 MEQ/L (3.5-5.1) 3.3 MEQ/L (3.5-5.1) 3.6 MEQ/L (3.5-5.1) Chloride Level 101 MEQ/L (98-107) 113 MEQ/L (98-107) 103 MEQ/L (98-107) Carbon Dioxide Level 18.3 MEQ/L (21.0-32.0) 20.6 MEQ/L (21.0-32.0) 23.8 MEQ/L (21.0-32.0) Anion Gap 13 MEQ/L (5-15) 7 MEQ/L (5-15) 9 MEQ/L (5-15) Estimat Glomerular Filtration Rate 39 ML/MIN (>89) 73 ML/MIN (>89) 72 ML/MIN (>89) Lactic Acid Level 1.5 mmol/L (0.4-2.0) Ammonia 28 MCMOL/L (11-32) Total Creatine Kinase 50 U/L (39-308) Troponin I LESS THAN 0.02 NG/ML Thyroid Stimulating Hormone 3rd Gen 0.945 uIU/ML (0.358-3.740) 2.700 uIU/ML (0.358-3.740) B-Hydroxybutyrate 0.43 MMOL/L (0.00-0.39) Protein Corrected Calcium 7.6 MG/DL (8.5-10.1) Urine Color LIGHT-YELLOW (YELLW/STRAW) Urine Turbidity CLEAR (CLEAR) Urine pH 6.0 (5.0-8.5) Urine Specific [place] 1.011 (1.002-1.035) Urine Protein 30 mg/dL (NEG-TRACE) Urine Glucose (UA) TRACE mg/dL (NEG) Urine Ketones NEG mg/dL (NEG) Urine Occult Blood MOD (NEG) Urine Nitrite NEG (NEG) Urine Bilirubin NEG (NEG) Urine Urobilinogen LESS THAN 2.0 MG/DL (LESS Urine Leukocyte Esterase MOD (NEG) Urine RBC 150 /hpf (0-3) Urine WBC 28 /hpf (0-5) Urine Squamous Epithelial Cells <1 /hpf (0-5) Urine Bacteria OCC /hpf (NONE) Urine Hyaline Casts 2 /lpf (RARE) Urine Mucus FEW /lpf (OCC) Microscopic Urinalysis Comment CATH-CULTURE IND Phosphorus Level 2.1 MG/DL (2.5-4.9) Magnesium Level 1.6 MG/DL (1.5-2.5) Free Thyroxine 1.24 NG/DL (0.76-1.46) Result Diagram: 10/08/1718 10/08/1718 Microbiology Microbiology Date/Time Source Procedure Growth Status 10/06/17 16:25 Blood Peripheral Aerobic Blood Culture - Preliminary NO GROWTH IN 1 DAY Resulted 10/06/17 16:25 Blood Peripheral Anaerobic Blood Culture - Preliminary NO GROWTH IN 1 DAY Resulted 10/06/17 16:20 Blood Peripheral Aerobic Blood Culture - Preliminary NO GROWTH IN 1 DAY Resulted 10/06/17 16:20 Blood Peripheral Anaerobic Blood Culture - Preliminary NO GROWTH IN 1 DAY Resulted 10/07/17 13:00 Urine Catheterized Urine Urine Culture Pending Received Imaging Last Impressions Head CT 10/07/17 0600 Signed Impressions: Service Date/Time: Saturday, October 07, 2017 07:26 - CONCLUSION: Stable focal area of subarachnoid blood identified in the sulci of the right parietal lobe. No evidence of significant adjacent edema.. Carolina Lehman MD Chest X-Ray 10/06/17 1601 Signed Impressions: Service Date/Time: Friday, October 06, 2017 16:23 - CONCLUSION: Poor inspiratory chest with mild basilar interstitial vascular prominence. Mild congestion is not excluded. Otherwise stable chest with no other evidence of acute process. Asaf Carney MD Patient/Family Conference Family Conference Time (mins): 35 (minutes) Family Conference Location: Bedside, Telephone Issues Discussed: Met with patient's son at bedside, met with daughter Afshan via phone discussion included the following: * Palliative care role, purpose, approach * Additional medical, psychosocial, and spiritual history * Patients general health, functional status, and cognitive changes in the months leading up to the current hospitalization * Patient/family understanding of the current medical problems; review with daughter brain imaging stable and there are no interventions indicated at this time, review of ongoing neuro monitoring and that hemorrhage very would take time to reabsorb and would not resolve overnight * Patient/family understanding of prognosis * Patients goals of care as best understood from advance directives and/or conversations and/or values * Current medical treatment options and benefits/burdens of those options * Likely scenarios comparing ongoing aggressive care with a transition to comfort measures only-review of hospice services * Questions answered to the best of my ability * Palliative care contact information provided Goals are somewhat comfort oriented, patient endorses wanting to go home though he indicates he will make "final decisions "after his outpatient follow- up with physician on October 22 regarding his prostate cancer. Morris tells me that he makes these appointments and then he never actually keeps them they are supporting his wishes by allowing him to complete this appointment though they think likely he will continue to remain on comfort measures only and not pursue additional treatment. Further we explored that if he has additional complications or setbacks he may not be a candidate for any possible systemic treatments, even palliative. Daughter Afshan endorses comfort oriented goals as well the only sent him back to the hospital because when he signed out AMA "they did not know what was going on with his brain and if he was going to need surgery or something ", they feel if he is currently stable and would not require further intervention they would want him to go back home with hospice and comfort measures. She did wish for him to remain a full code while in the hospital. Assessment and Plan Disease Oriented Problem List: (1) T2DM (type 2 diabetes mellitus) (2) CAD (coronary artery disease) (3) Hypertension (4) Prostate cancer metastatic to bone (5) UTI (urinary tract infection) (6) Subarachnoid hemorrhage (7) Delirium due to another medical condition Symptom Scale: (1) Pain, abdominal 0-10 Scale: Unable to quantify Pertinent Non-Medical Issues Psychosocial: Spiritual: Legal:Patient mental status fluctuates. Psychiatry consultation today notes that he has some cognitive deficits however is A and O 3 and does not meet Bradley act criteria. He may be able to participate in SHARED decision-making. During prior admission has reported to have advanced directives possibly naming the ex- Erna (this per Erna) however these documents have not been provided at this time. Has 2 daughters who would be appropriate legal proxy per [place] statutes. Appears daughters, ex- Erna have been working together in decision-making. Patient today 10/08/17 indicates he would want his daughter Afshan to be his primary decision maker, assisted him to complete healthcare surrogate designation documents. Copies provided to patient, faxed to medical records. Ethical issues impacting care: Important Contacts Patient's daughter Afshan Bravo Patient's daughter Alondra Bravo Patient's ex- Erna Bravo / [phone] . Prognosis This patient was admitted for psychiatric evaluation. He had just signed out AMA the day before with a new finding of subarachnoid hemorrhage his family requested he return to the hospital. Bradley act has been lifted. He has multiple chronic medical conditions. 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 He is appropriate for hospice if goals compatible. Of note he has recently been on hospice however has been revoked for hospitalization. Code Status: Full Code Plan * Legal decision maker: Patient mental status fluctuates. Psychiatry consultation today notes that he has some cognitive deficits however is A and O 3 and does not meet Bradley act criteria. He may be able to participate in SHARED decision-making. During prior admission has reported to have advanced directives possibly naming the ex- Erna (this per Erna) however these documents have not been provided at this time. Has 2 daughters who would be appropriate legal proxy per [place] statutes. Appears daughters, ex- Erna have been working together in decision-making. * Patient today 10/08/17 indicates he would want his daughter Afshan to be his primary decision maker, assisted him to complete healthcare surrogate designation documents. Copies provided to patient, faxed to medical records. * Goals: Goals are somewhat comfort oriented, patient endorses wanting to go home though he indicates he will make "final decisions "after his outpatient follow-up with physician on October 22 regarding his prostate cancer. Daughter Afshan endorses comfort oriented goals as well the only sent him back to the hospital because when he signed out AMA "they did not know what was going on with his brain and if he was going to need surgery or something ", they feel if he is currently stable and would not require further intervention they would want him to go back home with hospice and comfort measures. She did wish for him to remain a full code while in the hospital. * CODE STATUS: FULL CODE * SYMPTOMS: --Confusion-recently admitted after a fall, with CT brain findings of SAH, repeat CT imaging, third CT scan yesterday indicates area stable with no increase in hemorrhage or edema. Appears to have had some mild confusion and mental status fluctuations throughout the past year, most recent SAH likely compounding this. --Abdominal pain-patient today endorses vague abdominal pain. Abdominal exam is benign other than verbalized tenderness. He is unable to further qualify. continue to monitor . * Palliative care will continue to follow during hospital course as condition evolves, to assist patient/decision-maker with understanding of medical conditions, weighing benefits/burdens of treatment options, for clarification of goals of treatment. Additionally will assist with any symptoms of palliative concern Time Spent Total Floor Time (mins): 75 (exam, extensive chart review, d/w medical attending, d/w family, pt) Thank you for the opportunity to participate in the care of Mr. Bravo. Attestation To help prompt me to consider important information that might be impacting today's encounter and assessment, information from prior notes written by myself or my colleagues may have been "brought forward" into today's note. My signature on this note, however, is an attestation that I personally performed the exam, history, and/or decision-making noted today, and, unless otherwise indicated, the interactions with patient, family, and staff as well as the review of records all occurred today. I also attest that the listed assessment and stated plan reflect my best clinical judgment today based on the combination of historical information, prior notes, and today's exam/ interactions. When time spent is documented, it refers only to time spent today by the signer, or if indicated, combined time spent today by collaborating physician/nurse practitioner. Vita Ayala Oct 08, 2017 11:41
[2017-10-08] MEDS: MAGNESIUM SULFATE 1 GM PREMIX 100 ML IV SCH ×2 (12:23→13:38)
[2017-10-08] MEDS: ACETAMINOPHEN 325 MG TAB PO PRN (12:24)
[2017-10-08 16:30] LABS: HEMOGLOBIN A1C 9.6 % (4.3-6.0)
[2017-10-08] MEDS ORDERED: NALOXONE HCL 0.4 MG/ML AMP IV PUSH PRN (17:00)
[2017-10-08] MEDS ORDERED: ALPRAZolam 0.5 MG TAB PO PRN (17:00)
[2017-10-08] MEDS ORDERED: ACETAMINOPHEN/HYDROcodone 325 MG/10 MG TAB PO PRN (17:00)
[2017-10-08] MEDS ORDERED: MORPHINE SULFATE 4 MG/ML INJ IV PUSH PRN ×2 (17:00)
[2017-10-08] MEDS: TAMSULOSIN HCL 0.4 MG CAP PO SCH (21:24)
[2017-10-08] MEDS: MORPHINE SULFATE 4 MG/ML INJ IV PUSH PRN (21:26)
[2017-10-09] VITALS (16 sets, daily range): BP systolic 138–161; BP diastolic 78–94; PULSE 64–98; RESP 18; TEMP 98–98.6; O2SAT 93–99
[2017-10-09] MEDS: MORPHINE SULFATE 4 MG/ML INJ IV PUSH PRN ×5 (01:38→14:45)
[2017-10-09] MEDS: cefTRIAXone INJ 1,000 MG in SODIUM CHLORIDE 0.9% INJ 100 ML IV SCH (05:14)
[2017-10-09] MEDS: INSULIN ASPART SUPPLEMENTAL SCALE SQ SCH ×2 (08:00→11:32)
[2017-10-09 08:01] LABS: BASOPHIL % 0.3 % (0.0-2.0); EOSINOPHIL # 0.2 TH/MM3 (0-0.4); EOSINOPHIL % 1.9 % (0.0-4.0); HEMATOCRIT 29.6 % (39.0-51.0); HEMOGLOBIN 9.7 GM/DL (13.0-17.0); LYMPH % 13.8 % (9.0-44.0); LYMPHOCYTE # 1.1 TH/MM3 (1.0-4.8); MEAN CELL VOLUME 77.2 FL (80.0-100.0); MEAN CORPUSCULAR HEMOGLOBIN 25.3 PG (27.0-34.0); MEAN CORPUSCULAR HGB CONC 32.8 % (32.0-36.0); MONOCYTE # 0.8 TH/MM3 (0-0.9); PLATELET COUNT 365 TH/MM3 (150-450); RED BLOOD COUNT 3.84 MIL/MM3 (4.50-5.90); RED CELL DISTRIBUTION WIDTH 16.1 % (11.6-17.2)
[2017-10-09] MEDS: ESCITALOPRAM OXALATE 10 MG TAB PO SCH (08:20)
[2017-10-09] MEDS: HALOPERIDOL 1 MG TAB PO SCH (08:20)
[2017-10-09] MEDS: SUCRALFATE 1 GM TAB PO SCH ×2 (08:21→13:05)
[2017-10-09] MEDS: GABAPENTIN 300 MG CAP PO SCH (08:21)
[2017-10-09] MEDS: DOCUSATE SODIUM 50 MG/SENNA 8.6 MG TAB PO SCH (08:21)
[2017-10-09] MEDS: CARVEDILOL 12.5 MG TAB PO SCH (08:21)
[2017-10-09] MEDS: LISINOPRIL 20 MG TAB PO SCH (08:21)
[2017-10-09] MEDS: SODIUM CHLORIDE 0.9% FLUSH 10 ML FLUSH IV FLUSH SCH (08:22)
[2017-10-09 08:33] LABS: ALT (GPT) 8 U/L (12-78); AST (GOT) 7 U/L (15-37); BICARBONATE 23.5 MEQ/L (21.0-32.0); BLOOD UREA NITROGEN 14 MG/DL (7-18); CALCIUM 7.9 MG/DL (8.5-10.1); CHLORIDE 105 MEQ/L (98-107); CREATININE 0.97 MG/DL (0.60-1.30); GLOMERULAR FILTRATION RATE 79 ML/MIN (>89); GLUCOSE,RANDOM 130 MG/DL (74-106); MAGNESIUM 1.8 MG/DL (1.5-2.5); PHOSPHORUS 1.9 MG/DL (2.5-4.9); SODIUM (NA) 137 MEQ/L (136-145)
[2017-10-09 08:36] LABS: ALKALINE PHOSPHATASE 129 U/L (45-117); TOTAL BILIRUBIN ADULT 0.3 MG/DL (0.2-1.0); TOTAL PROTEIN 6.8 GM/DL (6.4-8.2)
--- NOTE | 2017-10-09 10:35 | HHI.HCPN ---
Reason for visit a. To assist with evaluation and management of symptoms including: b. To assist medical decision maker(s) with: better understanding of current medical conditions; weighing benefits/burdens of medical treatment options; making medical treatment decisions. Subjective/Interval History Pt seen today to follow up on comfort, goals. Has remained stable. No changes in neuro status remains somewhat confused but generally cooperative CBC unremarkable, chemistry unremarkable. Urine output adequate via nephrostomy tubes. Patient seen in room sitter is at bedside. He is alert he is partially oriented he indicates he remembers me from yesterday. He knows he is in the hospital though has poor insight to why he tells me "they made me come here to get more tests". He tells me he needs to go home soon so he "does not lose hospice ", because they help him with his medicines and ADLs. He also wants to go home to see the 2-year-old grandchild he is adopting. Assure him that hospice is still following and will be able to resume services when he is medically able to discharge. He remembers talking about his daughter Afshan with me yesterday. He continues to endorse vague abdominal pain unable to further describe. He tells me he may need to have a bowel movement (though per review of record he has had 3 in the past 24 hours, bowel regimen appears effective). He asks for Colace (this is already scheduled). He is cooperative with exam. He tells me he is tired he has not slept in the 3 days that he has been here. Sitter indicates he has been quiet and restful with no agitation hallucinations etc. observed. He has been cooperative. . Advance Directives Living Will: Never completed Health Care Surrogate: Copy in medical record Durable Power of Planning Assistant: Never completed Advance Directive Specifics Date completed: 10/08/17 Health Care Surrogate(s): Names daughter Afshan Maria . Objective Vital Signs Date Time Temp Pulse Resp B/P (MAP) Pulse Ox O2 Delivery O2 Flow Rate FiO2 10/09/17 08:28 18 10/09/17 06:00 68 10/09/17 05:00 72 10/09/17 04:00 98.0 78 18 156/78 (104) 98 10/09/17 04:00 70 10/09/17 03:00 66 10/09/17 02:00 68 10/09/17 01:00 72 10/09/17 00:00 71 10/09/17 00:00 98.6 69 18 148/78 (101) 99 10/08/17 23:00 70 10/08/17 22:00 68 10/08/17 21:00 68 10/08/17 20:00 65 10/08/17 20:00 98.0 70 18 163/93 (116) 99 10/08/17 18:05 73 10/08/17 17:00 77 10/08/17 16:00 81 10/08/17 15:41 98.1 70 18 162/88 (112) 97 10/08/17 15:00 75 10/08/17 14:00 70 10/08/17 13:00 74 10/08/17 12:00 78 10/08/17 11:00 70 10/08/17 11:00 98.1 77 20 156/81 (106) 94 Intake & Output 10/09/17 10/09/17 07:00 19:00 Intake Total 240 ml Balance 240 ml Intake Oral 240 ml # Bowel Movements 2 Physical Exam CONSTITUTIONAL/GENERAL: This is an adequately nourished patient, in no apparent distress. TUBES/LINES/DRAINS: Peripheral IV upper extremity, bilateral nephrostomy tubes SKIN: No jaundice, rashes, or lesions. No wounds seen anteriorly. Skin warm and dry CARDIOVASCULAR: Regular rate and rhythm without murmur. No JVD. Peripheral pulses symmetric. RESPIRATORY/CHEST: Symmetric, unlabored respirations. On room air. clear to auscultation. Breath sounds equal bilaterally. GASTROINTESTINAL: Abdomen soft, mildly tender, nondistended. No palpable masses. Bowel sounds normoactive. GENITOURINARY: Without palpable bladder distension. Bilateral nephrostomy tubes draining dark yellow urine NEUROLOGICAL: Awake, partially oriented x2-3, forgetful at times . Some very limited insight into hospitalization. Follows commands. Moving all 4 extremities PSYCHIATRIC: No obvious anxiety/depression. no apparent hallucinations or other psychotic thought process. Diagnostic Tests Laboratory Laboratory Tests Test 10/06/17 16:20 10/07/17 05:15 10/07/17 13:00 10/08/17 07:18 White Blood Count 9.6 TH/MM3 (4.0-11.0) 9.3 TH/MM3 (4.0-11.0) 8.0 TH/MM3 (4.0-11.0) Red Blood Count 3.65 MIL/MM3 (4.50-5.90) 3.55 MIL/MM3 (4.50-5.90) 3.96 MIL/MM3 (4.50-5.90) Hemoglobin 9.1 GM/DL (13.0-17.0) 9.1 GM/DL (13.0-17.0) 9.9 GM/DL (13.0-17.0) Hematocrit 29.1 % (39.0-51.0) 28.3 % (39.0-51.0) 30.9 % (39.0-51.0) Mean Corpuscular Volume 79.7 FL (80.0-100.0) 79.6 FL (80.0-100.0) 78.0 FL (80.0-100.0) Mean Corpuscular Hemoglobin 25.0 PG (27.0-34.0) 25.7 PG (27.0-34.0) 25.1 PG (27.0-34.0) Mean Corpuscular Hemoglobin Concent 31.4 % (32.0-36.0) 32.3 % (32.0-36.0) 32.1 % (32.0-36.0) Red Cell Distribution Width 16.3 % (11.6-17.2) 15.9 % (11.6-17.2) 15.9 % (11.6-17.2) Platelet Count 327 TH/MM3 (150-450) 308 TH/MM3 (150-450) 384 TH/MM3 (150-450) Mean Platelet Volume 7.8 FL (7.0-11.0) 7.5 FL (7.0-11.0) 7.3 FL (7.0-11.0) Neutrophils (%) (Auto) 83.1 % (16.0-70.0) 71.7 % (16.0-70.0) 77.6 % (16.0-70.0) Lymphocytes (%) (Auto) 9.3 % (9.0-44.0) 15.9 % (9.0-44.0) 11.3 % (9.0-44.0) Monocytes (%) (Auto) 7.4 % (0.0-8.0) 10.1 % (0.0-8.0) 9.6 % (0.0-8.0) Eosinophils (%) (Auto) 0.0 % (0.0-4.0) 1.8 % (0.0-4.0) 1.3 % (0.0-4.0) Basophils (%) (Auto) 0.2 % (0.0-2.0) 0.5 % (0.0-2.0) 0.2 % (0.0-2.0) Neutrophils # (Auto) 8.0 TH/MM3 (1.8-7.7) 6.6 TH/MM3 (1.8-7.7) 6.2 TH/MM3 (1.8-7.7) Lymphocytes # (Auto) 0.9 TH/MM3 (1.0-4.8) 1.5 TH/MM3 (1.0-4.8) 0.9 TH/MM3 (1.0-4.8) Monocytes # (Auto) 0.7 TH/MM3 (0-0.9) 0.9 TH/MM3 (0-0.9) 0.8 TH/MM3 (0-0.9) Eosinophils # (Auto) 0.0 TH/MM3 (0-0.4) 0.2 TH/MM3 (0-0.4) 0.1 TH/MM3 (0-0.4) Basophils # (Auto) 0.0 TH/MM3 (0-0.2) 0.0 TH/MM3 (0-0.2) 0.0 TH/MM3 (0-0.2) CBC Comment DIFF FINAL DIFF FINAL DIFF FINAL Differential Comment Prothrombin Time 11.5 SEC (9.8-11.6) Prothromb Time International Ratio 1.1 RATIO Activated Partial Thromboplast Time 26.6 SEC (24.3-30.1) Blood Urea Nitrogen 35 MG/DL (7-18) 26 MG/DL (7-18) 17 MG/DL (7-18) Creatinine 1.81 MG/DL (0.60-1.30) 1.04 MG/DL (0.60-1.30) 1.05 MG/DL (0.60-1.30) Random Glucose 404 MG/DL (74-106) 137 MG/DL (74-106) 174 MG/DL (74-106) Total Protein 7.5 GM/DL (6.4-8.2) 6.0 GM/DL (6.4-8.2) 7.3 GM/DL (6.4-8.2) Albumin 2.4 GM/DL (3.4-5.0) 1.8 GM/DL (3.4-5.0) 2.2 GM/DL (3.4-5.0) Calcium Level 7.9 MG/DL (8.5-10.1) 7.0 MG/DL (8.5-10.1) 8.2 MG/DL (8.5-10.1) Alkaline Phosphatase 142 U/L (45-117) 110 U/L (45-117) 135 U/L (45-117) Aspartate Amino Transf (AST/SGOT) 11 U/L (15-37) 8 U/L (15-37) 9 U/L (15-37) Alanine Aminotransferase (ALT/SGPT) 9 U/L (12-78) 7 U/L (12-78) 8 U/L (12-78) Total Bilirubin 0.2 MG/DL (0.2-1.0) 0.2 MG/DL (0.2-1.0) 0.4 MG/DL (0.2-1.0) Sodium Level 132 MEQ/L (136-145) 141 MEQ/L (136-145) 136 MEQ/L (136-145) Potassium Level 4.4 MEQ/L (3.5-5.1) 3.3 MEQ/L (3.5-5.1) 3.6 MEQ/L (3.5-5.1) Chloride Level 101 MEQ/L (98-107) 113 MEQ/L (98-107) 103 MEQ/L (98-107) Carbon Dioxide Level 18.3 MEQ/L (21.0-32.0) 20.6 MEQ/L (21.0-32.0) 23.8 MEQ/L (21.0-32.0) Anion Gap 13 MEQ/L (5-15) 7 MEQ/L (5-15) 9 MEQ/L (5-15) Estimat Glomerular Filtration Rate 39 ML/MIN (>89) 73 ML/MIN (>89) 72 ML/MIN (>89) Lactic Acid Level 1.5 mmol/L (0.4-2.0) Ammonia 28 MCMOL/L (11-32) Total Creatine Kinase 50 U/L (39-308) Troponin I LESS THAN 0.02 NG/ML Thyroid Stimulating Hormone 3rd Gen 0.945 uIU/ML (0.358-3.740) 2.700 uIU/ML (0.358-3.740) B-Hydroxybutyrate 0.43 MMOL/L (0.00-0.39) Protein Corrected Calcium 7.6 MG/DL (8.5-10.1) Urine Color LIGHT-YELLOW (YELLW/STRAW) Urine Turbidity CLEAR (CLEAR) Urine pH 6.0 (5.0-8.5) Urine Specific [place] 1.011 (1.002-1.035) Urine Protein 30 mg/dL (NEG-TRACE) Urine Glucose (UA) TRACE mg/dL (NEG) Urine Ketones NEG mg/dL (NEG) Urine Occult Blood MOD (NEG) Urine Nitrite NEG (NEG) Urine Bilirubin NEG (NEG) Urine Urobilinogen LESS THAN 2.0 MG/DL (LESS Urine Leukocyte Esterase MOD (NEG) Urine RBC 150 /hpf (0-3) Urine WBC 28 /hpf (0-5) Urine Squamous Epithelial Cells <1 /hpf (0-5) Urine Bacteria OCC /hpf (NONE) Urine Hyaline Casts 2 /lpf (RARE) Urine Mucus FEW /lpf (OCC) Microscopic Urinalysis Comment CATH-CULTURE IND Phosphorus Level 2.1 MG/DL (2.5-4.9) Magnesium Level 1.6 MG/DL (1.5-2.5) Hemoglobin A1c 9.6 % (4.3-6.0) Free Thyroxine 1.24 NG/DL (0.76-1.46) Test 10/09/17 06:57 White Blood Count 8.0 TH/MM3 (4.0-11.0) Red Blood Count 3.84 MIL/MM3 (4.50-5.90) Hemoglobin 9.7 GM/DL (13.0-17.0) Hematocrit 29.6 % (39.0-51.0) Mean Corpuscular Volume 77.2 FL (80.0-100.0) Mean Corpuscular Hemoglobin 25.3 PG (27.0-34.0) Mean Corpuscular Hemoglobin Concent 32.8 % (32.0-36.0) Red Cell Distribution Width 16.1 % (11.6-17.2) Platelet Count 365 TH/MM3 (150-450) Mean Platelet Volume 7.0 FL (7.0-11.0) Neutrophils (%) (Auto) 74.0 % (16.0-70.0) Lymphocytes (%) (Auto) 13.8 % (9.0-44.0) Monocytes (%) (Auto) 10.0 % (0.0-8.0) Eosinophils (%) (Auto) 1.9 % (0.0-4.0) Basophils (%) (Auto) 0.3 % (0.0-2.0) Neutrophils # (Auto) 6.0 TH/MM3 (1.8-7.7) Lymphocytes # (Auto) 1.1 TH/MM3 (1.0-4.8) Monocytes # (Auto) 0.8 TH/MM3 (0-0.9) Eosinophils # (Auto) 0.2 TH/MM3 (0-0.4) Basophils # (Auto) 0.0 TH/MM3 (0-0.2) CBC Comment DIFF FINAL Differential Comment Blood Urea Nitrogen 14 MG/DL (7-18) Creatinine 0.97 MG/DL (0.60-1.30) Random Glucose 130 MG/DL (74-106) Total Protein 6.8 GM/DL (6.4-8.2) Albumin 2.0 GM/DL (3.4-5.0) Calcium Level 7.9 MG/DL (8.5-10.1) Phosphorus Level 1.9 MG/DL (2.5-4.9) Magnesium Level 1.8 MG/DL (1.5-2.5) Alkaline Phosphatase 129 U/L (45-117) Aspartate Amino Transf (AST/SGOT) 7 U/L (15-37) Alanine Aminotransferase (ALT/SGPT) 8 U/L (12-78) Total Bilirubin 0.3 MG/DL (0.2-1.0) Sodium Level 137 MEQ/L (136-145) Potassium Level 3.4 MEQ/L (3.5-5.1) Chloride Level 105 MEQ/L (98-107) Carbon Dioxide Level 23.5 MEQ/L (21.0-32.0) Anion Gap 9 MEQ/L (5-15) Estimat Glomerular Filtration Rate 79 ML/MIN (>89) Result Diagram: 10/09/17 0657 10/09/17 0657 Microbiology Microbiology Date/Time Source Procedure Growth Status 10/06/17 16:25 Blood Peripheral Aerobic Blood Culture - Preliminary NO GROWTH IN 2 DAYS Resulted 10/06/17 16:25 Blood Peripheral Anaerobic Blood Culture - Preliminary NO GROWTH IN 2 DAYS Resulted 10/06/17 16:20 Blood Peripheral Aerobic Blood Culture - Preliminary NO GROWTH IN 2 DAYS Resulted 10/06/17 16:20 Blood Peripheral Anaerobic Blood Culture - Preliminary NO GROWTH IN 2 DAYS Resulted 10/07/17 13:00 Urine Catheterized Urine Urine Culture - Final [facility] Complete Imaging Last Impressions Head CT 10/07/17 0600 Signed Impressions: Service Date/Time: Saturday, October 07, 2017 07:26 - CONCLUSION: Stable focal area of subarachnoid blood identified in the sulci of the right parietal lobe. No evidence of significant adjacent edema.. Carolina Lehman MD Chest X-Ray 10/06/17 1601 Signed Impressions: Service Date/Time: Friday, October 06, 2017 16:23 - CONCLUSION: Poor inspiratory chest with mild basilar interstitial vascular prominence. Mild congestion is not excluded. Otherwise stable chest with no other evidence of acute process. Asaf Carney MD Assessment and Plan Disease Oriented Problem List: (1) T2DM (type 2 diabetes mellitus) (2) CAD (coronary artery disease) (3) Hypertension (4) Prostate cancer metastatic to bone (5) UTI (urinary tract infection) (6) Subarachnoid hemorrhage (7) Delirium due to another medical condition Symptom Scale: (1) Pain, abdominal 0-10 Scale: Unable to quantify Pertinent Non-Medical Issues Psychosocial: Spiritual: Legal:Patient mental status fluctuates. Psychiatry consultation today notes that he has some cognitive deficits however is A and O 3 and does not meet Bradley act criteria. He may be able to participate in SHARED decision-making. During prior admission has reported to have advanced directives possibly naming the ex- Erna (this per Erna) however these documents have not been provided at this time. Has 2 daughters who would be appropriate legal proxy per [place] statutes. Appears daughters, ex- Erna have been working together in decision-making. Patient today 10/08/17 indicates he would want his daughter Afshan to be his primary decision maker, assisted him to complete healthcare surrogate designation documents. Copies provided to patient, faxed to medical records. Ethical issues impacting care: Important Contacts Patient's daughter Afshan Bravo Patient's daughter Alondra Bravo Patient's ex- Erna Bravo / [phone] . Prognosis This patient was admitted for psychiatric evaluation. He had just signed out AMA the day before with a new finding of subarachnoid hemorrhage his family requested he return to the hospital. Bradley act has been lifted. He has multiple chronic medical conditions. 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 He is appropriate for hospice if goals compatible. Of note he has recently been on hospice however has been revoked for hospitalization. Code Status: Full Code Plan * Legal decision maker: Patient mental status fluctuates. Psychiatry consultation today notes that he has some cognitive deficits however is A and O 3 and does not meet Bradley act criteria. He may be able to participate in SHARED decision-making. During prior admission has reported to have advanced directives possibly naming the ex- Erna (this per Erna) however these documents have not been provided at this time. Has 2 daughters who would be appropriate legal proxy per [place] statutes. Appears daughters, ex- Erna have been working together in decision-making. * Patient today 10/08/17 indicates he would want his daughter Afshan to be his primary decision maker, assisted him to complete healthcare surrogate designation documents. Copies provided to patient, faxed to medical records. * Goals: Goals are somewhat comfort oriented, patient endorses wanting to go home though he indicates he will make "final decisions "after his outpatient follow-up with physician on October 22 regarding his prostate cancer. Daughter Afshan endorses comfort oriented goals as well the only sent him back to the hospital because when he signed out AMA "they did not know what was going on with his brain and if he was going to need surgery or something ", they feel if he is currently stable and would not require further intervention they would want him to go back home with hospice and comfort measures. She did wish for him to remain a full code while in the hospital. * CODE STATUS: FULL CODE * SYMPTOMS: --Confusion-recently admitted after a fall, with CT brain findings of SAH, repeat CT imaging, third CT scan yesterday indicates area stable with no increase in hemorrhage or edema. Appears to have had some mild confusion and mental status fluctuations throughout the past year, most recent SAH likely compounding this. --Abdominal pain-patient today endorses vague abdominal pain. Abdominal exam is benign other than verbalized tenderness. He is unable to further qualify. continue to monitor . Having BMs. Eating well (80%) * Palliative care will continue to follow during hospital course as condition evolves, to assist patient/decision-maker with understanding of medical conditions, weighing benefits/burdens of treatment options, for clarification of goals of treatment. Additionally will assist with any symptoms of palliative concern Attestation To help prompt me to consider important information that might be impacting today's encounter and assessment, information from prior notes written by myself or my colleagues may have been "brought forward" into today's note. My signature on this note, however, is an attestation that I personally performed the exam, history, and/or decision-making noted today, and, unless otherwise indicated, the interactions with patient, family, and staff as well as the review of records all occurred today. I also attest that the listed assessment and stated plan reflect my best clinical judgment today based on the combination of historical information, prior notes, and today's exam/ interactions. When time spent is documented, it refers only to time spent today by the signer, or if indicated, combined time spent today by collaborating physician/nurse practitioner. Vita Ayala Oct 09, 2017 10:35
[2017-10-09] MEDS ORDERED: FLUCONAZOLE 100 MG TAB PO SCH (13:00)
[2017-10-09] MEDS ORDERED: POTASSIUM CHLORIDE 20 MEQ CONTROLLED RELEASE TAB PO ONE (13:00)
--- NOTE | 2017-10-09 13:02 | HHI.PR ---
Subjective Remarks This is a 57-year-old male with a PMH of Anxiety, HTN, Hyperlipidemia, CHF ( Echo 06/16/2017 w/ EF 30-35%), CAD, Stage IV Prostate CA, reportedly on Hospice , Hydronephrosis s/p Bilateral Nephrostomy Tubes and DM who was brought to the ER by EMS at Daughter's request for AMS as she is unable to care for him. Pt initially presented to ER on 10/05/[address] Head w/ small SAH, + orthostatic hypotension and UTI. Admitted to ICU, however pt ultimately LEFT AMA. Returns now for worsening AMS per Daughter and apparent fall. Pt poor historian, unable to provide much history. CT Head today notes unchanged small SAH, discussed w/ Cardiac Tech, pt ok for medical admission as bleeding unchanged. On arrival, BP 135/69, HR 79, O2 sat 100% RA, Afebrile. CBC essentially at baseline. Creatinine 1.89, previously 1.4904 618. BS 404. Lactic Acid normal. Ammonia 28. Troponin negative. INR 1.1. UA positive for UTI. CT Head with persistent unchanged subarachnoid hemorrhage as above. CXR poor inspiratory chest mild basilar interstitial vascular prominence. While in ER, pt confused, agitated ultimately requiring restraints. 4-8 PATIENT REMAINS CONFUSED BLOOD PRESSURE REMAINS ELEVATED NEEDS HOSPICE TREAT UTI PALLIATIVE CARE CONSULTS 4-9 PU[facility] ACT HAS BEEN LIFTED BY PSYCHIATRY BLOOD PRESSURE STILL IS BORDERLINE AM LABS DW RN AND PT AND CM TRANSFER OFF FLOOR MONITOR BLOOD PRESSURE 4-10 PU[facility] ACT HAS BEEN LIFTED WANTS TO GO HOME WITH FAMILY AND HOSPICE DC TO HOME TODAY DW RN AND PT AND CM RESUME HOME HOSPICE Objective Vitals Vital Signs Date Time Temp Pulse Resp B/P (MAP) Pulse Ox O2 Delivery O2 Flow Rate FiO2 10/09/17 12:45 64 10/09/17 11:40 18 10/09/17 11:37 98.4 67 18 138/84 (102) 97 10/09/17 11:37 67 10/09/17 10:32 76 10/09/17 08:05 66 10/09/17 07:36 98.0 72 18 161/94 (116) 95 10/09/17 06:00 68 10/09/17 05:00 72 10/09/17 04:00 98.0 78 18 156/78 (104) 98 10/09/17 04:00 70 10/09/17 03:00 66 10/09/17 02:00 68 10/09/17 01:00 72 10/09/17 00:00 71 10/09/17 00:00 98.6 69 18 148/78 (101) 99 10/08/17 23:00 70 10/08/17 22:00 68 10/08/17 21:00 68 10/08/17 20:00 65 10/08/17 20:00 98.0 70 18 163/93 (116) 99 10/08/17 18:05 73 10/08/17 17:00 77 10/08/17 16:00 81 10/08/17 15:41 98.1 70 18 162/88 (112) 97 10/08/17 15:00 75 10/08/17 14:00 70 10/08/17 13:00 74 I/O 10/08/17 10/08/17 10/08/17 10/09/17 10/09/17 10/09/17 06:59 14:59 22:59 06:59 14:59 22:59 Intake Total 220 ml 200 ml 720 ml 240 ml Output Total 1350 ml 470 ml Balance -1130 ml 200 ml 250 ml 240 ml Intake Oral 120 ml 720 ml 240 ml IV Total 100 ml 200 ml Output Urine Total 470 ml Drainage Total 1350 ml # Bowel Movements 1 2 Result Diagram: 10/09/17 0657 10/09/17 0657 Other Results Laboratory Tests Test 10/06/17 16:20 10/07/17 05:15 10/07/17 13:00 10/08/17 07:18 White Blood Count 9.6 TH/MM3 9.3 TH/MM3 8.0 TH/MM3 Red Blood Count 3.65 MIL/MM3 3.55 MIL/MM3 3.96 MIL/MM3 Hemoglobin 9.1 GM/DL 9.1 GM/DL 9.9 GM/DL Hematocrit 29.1 % 28.3 % 30.9 % Mean Corpuscular Volume 79.7 FL 79.6 FL 78.0 FL Mean Corpuscular Hemoglobin 25.0 PG 25.7 PG 25.1 PG Mean Corpuscular Hemoglobin Concent 31.4 % 32.3 % 32.1 % Red Cell Distribution Width 16.3 % 15.9 % 15.9 % Platelet Count 327 TH/MM3 308 TH/MM3 384 TH/MM3 Mean Platelet Volume 7.8 FL 7.5 FL 7.3 FL Neutrophils (%) (Auto) 83.1 % 71.7 % 77.6 % Lymphocytes (%) (Auto) 9.3 % 15.9 % 11.3 % Monocytes (%) (Auto) 7.4 % 10.1 % 9.6 % Eosinophils (%) (Auto) 0.0 % 1.8 % 1.3 % Basophils (%) (Auto) 0.2 % 0.5 % 0.2 % Neutrophils # (Auto) 8.0 TH/MM3 6.6 TH/MM3 6.2 TH/MM3 Lymphocytes # (Auto) 0.9 TH/MM3 1.5 TH/MM3 0.9 TH/MM3 Monocytes # (Auto) 0.7 TH/MM3 0.9 TH/MM3 0.8 TH/MM3 Eosinophils # (Auto) 0.0 TH/MM3 0.2 TH/MM3 0.1 TH/MM3 Basophils # (Auto) 0.0 TH/MM3 0.0 TH/MM3 0.0 TH/MM3 CBC Comment DIFF FINAL DIFF FINAL DIFF FINAL Differential Comment Prothrombin Time 11.5 SEC Prothromb Time International Ratio 1.1 RATIO Activated Partial Thromboplast Time 26.6 SEC Blood Urea Nitrogen 35 MG/DL 26 MG/DL 17 MG/DL Creatinine 1.81 MG/DL 1.04 MG/DL 1.05 MG/DL Random Glucose 404 MG/DL 137 MG/DL 174 MG/DL Total Protein 7.5 GM/DL 6.0 GM/DL 7.3 GM/DL Albumin 2.4 GM/DL 1.8 GM/DL 2.2 GM/DL Calcium Level 7.9 MG/DL 7.0 MG/DL 8.2 MG/DL Alkaline Phosphatase 142 U/L 110 U/L 135 U/L Aspartate Amino Transf (AST/SGOT) 11 U/L 8 U/L 9 U/L Alanine Aminotransferase (ALT/SGPT) 9 U/L 7 U/L 8 U/L Total Bilirubin 0.2 MG/DL 0.2 MG/DL 0.4 MG/DL Sodium Level 132 MEQ/L 141 MEQ/L 136 MEQ/L Potassium Level 4.4 MEQ/L 3.3 MEQ/L 3.6 MEQ/L Chloride Level 101 MEQ/L 113 MEQ/L 103 MEQ/L Carbon Dioxide Level 18.3 MEQ/L 20.6 MEQ/L 23.8 MEQ/L Anion Gap 13 MEQ/L 7 MEQ/L 9 MEQ/L Estimat Glomerular Filtration Rate 39 ML/MIN 73 ML/MIN 72 ML/MIN Lactic Acid Level 1.5 mmol/L Ammonia 28 MCMOL/L Total Creatine Kinase 50 U/L Troponin I LESS THAN 0.02 NG/ML Thyroid Stimulating Hormone 3rd Gen 0.945 uIU/ML 2.700 uIU/ML B-Hydroxybutyrate 0.43 MMOL/L Protein Corrected Calcium 7.6 MG/DL Urine Color LIGHT-YELLOW Urine Turbidity CLEAR Urine pH 6.0 Urine Specific [place] 1.011 Urine Protein 30 mg/dL Urine Glucose (UA) TRACE mg/dL Urine Ketones NEG mg/dL Urine Occult Blood MOD Urine Nitrite NEG Urine Bilirubin NEG Urine Urobilinogen LESS THAN 2.0 MG/DL Urine Leukocyte Esterase MOD Urine RBC 150 /hpf Urine WBC 28 /hpf Urine Squamous Epithelial Cells <1 /hpf Urine Bacteria OCC /hpf Urine Hyaline Casts 2 /lpf Urine Mucus FEW /lpf Microscopic Urinalysis Comment CATH-CULTURE IND Phosphorus Level 2.1 MG/DL Magnesium Level 1.6 MG/DL Hemoglobin A1c 9.6 % Free Thyroxine 1.24 NG/DL Test 10/09/17 06:57 White Blood Count 8.0 TH/MM3 Red Blood Count 3.84 MIL/MM3 Hemoglobin 9.7 GM/DL Hematocrit 29.6 % Mean Corpuscular Volume 77.2 FL Mean Corpuscular Hemoglobin 25.3 PG Mean Corpuscular Hemoglobin Concent 32.8 % Red Cell Distribution Width 16.1 % Platelet Count 365 TH/MM3 Mean Platelet Volume 7.0 FL Neutrophils (%) (Auto) 74.0 % Lymphocytes (%) (Auto) 13.8 % Monocytes (%) (Auto) 10.0 % Eosinophils (%) (Auto) 1.9 % Basophils (%) (Auto) 0.3 % Neutrophils # (Auto) 6.0 TH/MM3 Lymphocytes # (Auto) 1.1 TH/MM3 Monocytes # (Auto) 0.8 TH/MM3 Eosinophils # (Auto) 0.2 TH/MM3 Basophils # (Auto) 0.0 TH/MM3 CBC Comment DIFF FINAL Differential Comment Blood Urea Nitrogen 14 MG/DL Creatinine 0.97 MG/DL Random Glucose 130 MG/DL Total Protein 6.8 GM/DL Albumin 2.0 GM/DL Calcium Level 7.9 MG/DL Phosphorus Level 1.9 MG/DL Magnesium Level 1.8 MG/DL Alkaline Phosphatase 129 U/L Aspartate Amino Transf (AST/SGOT) 7 U/L Alanine Aminotransferase (ALT/SGPT) 8 U/L Total Bilirubin 0.3 MG/DL Sodium Level 137 MEQ/L Potassium Level 3.4 MEQ/L Chloride Level 105 MEQ/L Carbon Dioxide Level 23.5 MEQ/L Anion Gap 9 MEQ/L Estimat Glomerular Filtration Rate 79 ML/MIN Imaging Last Impressions Head CT 10/07/17 0600 Signed Impressions: Service Date/Time: Saturday, October 07, 2017 07:26 - CONCLUSION: Stable focal area of subarachnoid blood identified in the sulci of the right parietal lobe. No evidence of significant adjacent edema.. Carolina Lehman MD Chest X-Ray 10/06/17 1601 Signed Impressions: Service Date/Time: Friday, October 06, 2017 16:23 - CONCLUSION: Poor inspiratory chest with mild basilar interstitial vascular prominence. Mild congestion is not excluded. Otherwise stable chest with no other evidence of acute process. Asaf Carney MD Objective Remarks GENERAL: Awake and alert oriented 2 LESS confusion somewhat cooperative can follow some commands SKIN: Warm and dry. HEAD: Atraumatic. Normocephalic. EYES: Pupils equal and round. No scleral icterus. No injection or drainage. Extraocular muscles intact ENT: No nasal bleeding or discharge. Mucous membranes pink and moist. Tongue is midline NECK: Trachea midline. No JVD. Supple CARDIOVASCULAR: Regular rate and rhythm. S1-S2 no S3 or S4 RESPIRATORY: No accessory muscle use. Clear to auscultation. Breath sounds equal bilaterally. GASTROINTESTINAL: Abdomen soft, non-tender, nondistended. Hepatic and splenic margins not palpable. Bilateral nephrostomy tubes in place but yellow drainage MUSCULOSKELETAL: Extremities without clubbing, cyanosis, or edema. No obvious deformities. NEUROLOGICAL: Awake and alert. No obvious cranial nerve deficits. Motor grossly within normal limits. 4 out of 5 muscle strength in the arms and legs. Normal speech. PSYCHIATRIC: INAppropriate mood and affect; insight and judgment ABnormal. Procedures NONE Medications and IVs Current Medications Lorazepam (Ativan Inj) 2 mg STK-MED ONCE .ROUTE ; Start 10/06/17 at 19:27; Stop 10/06/17 at 19:28; Status DC Lorazepam (Ativan Inj) 1 mg ONCE ONCE IV PUSH Last administered on 10/06/17at 19 :47; Start 10/06/17 at 19:45; Stop 10/06/17 at 19:46; Status DC Dextrose (D50w (Vial) Inj) 50 ml UNSCH PRN IV PUSH HYPOGLYCEMIA-SEE COMMENTS; Start 10/06/17 at 20:00 Glucagon (Glucagon Inj) 1 mg UNSCH PRN OTHER HYPOGLYCEMIA-SEE COMMENTS; Start 10/06/17 at 20:00 Insulin Aspart (NovoLOG SUPPLEMENTAL SCALE) 1 ACHS SLIDING SCALE SQ Last administered on 10/08/17at 17:50; Start 10/06/17 at 21:00 Ceftriaxone Sodium 1000 mg/ Sodium Chloride 100 ml @ 200 mls/hr Q24H IV Last administered on 10/09/17at 05:14; Start 10/07/17 at 06:00 Lorazepam (Ativan Inj) 1 mg Q2H PRN IV PUSH AGITATION Last administered on at 01:00; Start 10/06/17 at 20:00 Sodium Chloride 1,000 ml @ 100 mls/hr Q10H IV Last administered on 10/07/17at 17 :56; Start 10/06/17 at 21:00; Stop 10/08/17 at 16:58; Status DC Sodium Chloride (NS Flush) 2 ml UNSCH PRN IV FLUSH FLUSH AFTER USING IV ACCESS ; Start 10/06/17 at 20:00 Sodium Chloride (NS Flush) 2 ml BID IV FLUSH Last administered on 10/09/17at 08: 22; Start 10/06/17 at 21:00 Ondansetron HCl (Zofran Inj) 4 mg Q6H PRN IVP NAUSEA OR VOMITING; Start at 20:00 Acetaminophen (Tylenol) 650 mg Q6H PRN PO FEVER/PAIN SCALE 1 TO 2 Last administered on 10/08/17at 12:24; Start 10/06/17 at 20:00 Senna/Docusate Sodium (Nichole-Colace) 1 tab BID PO Last administered on 10/08/17at 08:50; Start 10/06/17 at 21:00; Stop 10/08/17 at 11:29; Status DC Magnesium Hydroxide (Milk Of Magnesia Liq) 30 ml Q12H PRN PO Mild constipation ; Start 10/06/17 at 20:00 Sennosides (Senokot) 17.2 mg Q12H PRN PO Moderate constipation; Start 10/06/17 at 20:00 Bisacodyl (Dulcolax Supp) 10 mg DAILY PRN RECTAL SEVERE CONSITIPATION; Start at 20:00 Lactulose (Lactulose Liq) 30 ml DAILY PRN PO SEVERE CONSITIPATION; Start at 20:00 Escitalopram Oxalate (Lexapro) 10 mg DAILY PO Last administered on 10/09/17 08 :20; Start 10/07/17 at 09:00 Haloperidol (Haldol) 1 mg BID PO Last administered on 10/09/17 08:20; Start at 21:00 Tamsulosin HCl (Flomax) 0.4 mg HS PO Last administered on 10/08/17 21:24; Start 10/06/17 at 21:00 Clonidine (Catapres) 0.1 mg Q4H PRN PO SBP>160, DBP>90 Last administered on 10/08 08:51; Start 10/07/17 at 14:00 Hydralazine HCl (Apresoline) 25 mg Q8HR PRN PO SYS BP GREATER THAN 160 MMHG Last administered on 10/07/17 19:21; Start 10/07/17 at 14:00 Carvedilol (Coreg) 12.5 mg BID PO Last administered on 10/09/17 08:21; Start 10/07/17 at 14:30 Gabapentin (Neurontin) 300 mg BID PO Last administered on 10/09/17 08:21; Start 10/07/17 at 21:00 Lisinopril (Prinivil) 20 mg DAILY PO Last administered on 10/09/17 08:21; Start 10/07/17 at 14:30 Senna/Docusate Sodium (Nichole-Colace) 3 tab BID PO Last administered on 08:21; Start 10/07/17 at 21:00 Sucralfate (Carafate) 1 gm TID PO Last administered on 10/09/17 08:21; Start 10/07/17 at 18:00 Magnesium Sulfate/ Dextrose 100 ml @ 100 mls/hr Q1H IV Last administered on 10/08/17at 13:38; Start 10/08/17 at 11:30; Stop 10/08/17 at 13:29; Status DC Alprazolam (Xanax) 0.5 mg Q4H PRN PO ANXIETY; Start 10/08/17 at 17:00 Acetaminophen/ Hydrocodone Bitart ([place] 10-325 Mg) 1 tab Q6HR PRN PO PAIN SCALE 5 TO 10 Last administered on 10/08/17at 17:50; Start 10/08/17 at 17:00 Morphine Sulfate (Morphine Inj) 4 mg Q3H PRN IV PUSH Pain 6-10;if PO NOT WORKING Last administered on 10/09/17at 11:32; Start 10/08/17 at 17:00 Morphine Sulfate (Morphine Inj) 4 mg Q1H PRN IV PUSH PAIN SCALE 7-10 ( INTRACTABLE); Start 10/08/17 at 17:00 Morphine Sulfate (Morphine Inj) 4 mg Q3H PRN IV PUSH BREAKTHROUGH PAIN; Start 10/08/17 at 17:00 Naloxone HCl (Narcan Inj) 0.4 mg UNSCH PRN IV PUSH SEE LABEL COMMENTS; Start at 17:00 A/P Problem List: (1) Encephalopathy ICD Code: G93.40 - Encephalopathy, unspecified (2) SAH (subarachnoid hemorrhage) ICD Code: I60.9 - Nontraumatic subarachnoid hemorrhage, unspecified (3) UTI (urinary tract infection) ICD Code: N39.0 - Urinary tract infection, site not specified (4) DM (diabetes mellitus) ICD Code: E11.9 - Type 2 diabetes mellitus without complications Assessment and Plan 1. Encephalopathy: per report, pt w/ worsening AMS noted by family, unclear etiology, likely combination of UTI w/ SAH and underlying Prostate CA. Per records, pt reportedly on Hospice, unable to confirm at this time, will need to discuss further w/ family. Neuro checks. Ativan prn for agitation. - SEEMS TO BE IMPROVED TODAY--RESOLVED 2. SAH: CT Head 10/06/17 w/ small subarachnoid hemorrhage, repeat CT today w/ unchanged small SAH, images reviewed by me. Discussed w/ Cardiac Tech, rubén for medical admission as bleeding unchanged despite AMS. Will check repeat CT Head in am to eval for further progression. Seizure Precautions. BLOOD PRESSURE A LITTLE BETTER-- PUGH ACT LIFTED BY PSYCHIATRY 3. UTI: U/a w/ UTI, persistent, will continue w/ IV Abx. Previous bilateral nephrostomy tube placement 06/2018 for bilateral hydronephrosis, Renal US w/ right-sided nephrostomy stent, no hydronephrosis, left kidney normal w/ resolved hydronephrosis. Urology Consult for further eval. --PIERCE UTI DIFLUCAN 4. DM: Uncontrolled. Sliding scale w/ Accu-Cheks. 5. DVT Prophylaxis: Pharmacologic contraindication due to SAH 6. Social work for DC planning as needed. As above, will need to discuss w/ family regarding Hospice/placement We will get physical therapy and occupational therapy to eval and treat We will get hospice evaluation as well as palliative care evaluate HYPOKALEMIA WILL REPLACE PUGH ACT HAS BEEN LIFTED PT AND OT DC HOME WITH HOSPICE Discharge Planning DC HOME WITH HOSPICE Amarjit Albarran DO Oct 09, 2017 13:02
[2017-10-09] MEDS ORDERED: HALO1TAB PO (13:09)
[2017-10-09] MEDS ORDERED: SUCR1TAB PO (13:09)
[2017-10-09] MEDS ORDERED: PROC10TA PO (13:09)
[2017-10-09] MEDS ORDERED: ALPR0.5T3 PO (13:09)
[2017-10-09] MEDS ORDERED: ESCI10TA PO (13:09)
[2017-10-09] MEDS ORDERED: LISI-515 PO (13:09)
[2017-10-09] MEDS ORDERED: SENN1TAB PO (13:09)
[2017-10-09] MEDS ORDERED: HYDR-3583 PO (13:09)
[2017-10-09] MEDS ORDERED: OMEP20TA93 PO (13:09)
[2017-10-09] MEDS ORDERED: GABA300C5 PO (13:09)
[2017-10-09] MEDS ORDERED: TAMS5CAP PO (13:09)
[2017-10-09] MEDS ORDERED: DIFL100T PO (13:09)
[2017-10-09] MEDS ORDERED: CARV12.5 PO (13:09)
[2017-10-09] MEDS ORDERED: CEFU1TAB18 PO (13:11)
--- NOTE | 2017-10-09 13:14 | HHI.DS ---
Discharge Summary Admission Date Oct 06, 2017 at 20:00 Discharge Date: Oct 09, 2017 Admitting Diagnosis SAH, AMS (1) Encephalopathy ICD Code: G93.40 - Encephalopathy, unspecified Diagnosis: Principal (2) SAH (subarachnoid hemorrhage) ICD Code: I60.9 - Nontraumatic subarachnoid hemorrhage, unspecified Diagnosis: Principal (3) UTI (urinary tract infection) ICD Code: N39.0 - Urinary tract infection, site not specified (4) DM (diabetes mellitus) ICD Code: E11.9 - Type 2 diabetes mellitus without complications Diagnosis: Principal Procedures NONE Brief History - From Admission This is a 57-year-old male with a PMH of Anxiety, HTN, Hyperlipidemia, CHF ( Echo 06/16/2017 w/ EF 30-35%), CAD, Stage IV Prostate CA, reportedly on Hospice , Hydronephrosis s/p Bilateral Nephrostomy Tubes and DM who was brought to the ER by EMS at Daughter's request for AMS as she is unable to care for him. Pt initially presented to ER on 10/05/[address] Head w/ small SAH, + orthostatic hypotension and UTI. Admitted to ICU, however pt ultimately LEFT AMA. Returns now for worsening AMS per Daughter and apparent fall. Pt poor historian, unable to provide much history. CT Head today notes unchanged small SAH, discussed w/ Senior [employer] Software Engineer, pt ok for medical admission as bleeding unchanged. On arrival, BP 135/69, HR 79, O2 sat 100% RA, Afebrile. CBC essentially at baseline. Creatinine 1.89, previously 1.4904 618. BS 404. Lactic Acid normal. Ammonia 28. Troponin negative. INR 1.1. UA positive for UTI. CT Head with persistent unchanged subarachnoid hemorrhage as above. CXR poor inspiratory chest mild basilar interstitial vascular prominence. While in ER, pt confused, agitated ultimately requiring restraints. CBC/BMP: 10/09/17 0657 10/09/17 0657 Significant Findings Laboratory Tests Test 10/06/17 16:20 10/07/17 05:15 10/07/17 13:00 4/9/18 07:18 Red Blood Count 3.65 MIL/MM3 (4.50-5.90) 3.55 MIL/MM3 (4.50-5.90) 3.96 MIL/MM3 (4.50-5.90) Hemoglobin 9.1 GM/DL (13.0-17.0) 9.1 GM/DL (13.0-17.0) 9.9 GM/DL (13.0-17.0) Hematocrit 29.1 % (39.0-51.0) 28.3 % (39.0-51.0) 30.9 % (39.0-51.0) Mean Corpuscular Volume 79.7 FL (80.0-100.0) 79.6 FL (80.0-100.0) 78.0 FL (80.0-100.0) Mean Corpuscular Hemoglobin 25.0 PG (27.0-34.0) 25.7 PG (27.0-34.0) 25.1 PG (27.0-34.0) Mean Corpuscular Hemoglobin Concent 31.4 % (32.0-36.0) Neutrophils (%) (Auto) 83.1 % (16.0-70.0) 71.7 % (16.0-70.0) 77.6 % (16.0-70.0) Neutrophils # (Auto) 8.0 TH/MM3 (1.8-7.7) Lymphocytes # (Auto) 0.9 TH/MM3 (1.0-4.8) 0.9 TH/MM3 (1.0-4.8) Blood Urea Nitrogen 35 MG/DL (7-18) 26 MG/DL (7-18) Creatinine 1.81 MG/DL (0.60-1.30) Random Glucose 404 MG/DL (74-106) 137 MG/DL (74-106) 174 MG/DL (74-106) Albumin 2.4 GM/DL (3.4-5.0) 1.8 GM/DL (3.4-5.0) 2.2 GM/DL (3.4-5.0) Calcium Level 7.9 MG/DL (8.5-10.1) 7.0 MG/DL (8.5-10.1) 8.2 MG/DL (8.5-10.1) Alkaline Phosphatase 142 U/L (45-117) 135 U/L (45-117) Aspartate Amino Transf (AST/SGOT) 11 U/L (15-37) 8 U/L (15-37) 9 U/L (15-37) Alanine Aminotransferase (ALT/SGPT) 9 U/L (12-78) 7 U/L (12-78) 8 U/L (12-78) Sodium Level 132 MEQ/L (136-145) Carbon Dioxide Level 18.3 MEQ/L (21.0-32.0) 20.6 MEQ/L (21.0-32.0) Estimat Glomerular Filtration Rate 39 ML/MIN (>89) 73 ML/MIN (>89) 72 ML/MIN (>89) Troponin I LESS THAN 0.02 NG/ML B-Hydroxybutyrate 0.43 MMOL/L (0.00-0.39) Monocytes (%) (Auto) 10.1 % (0.0-8.0) 9.6 % (0.0-8.0) Total Protein 6.0 GM/DL (6.4-8.2) Potassium Level 3.3 MEQ/L (3.5-5.1) Chloride Level 113 MEQ/L (98-107) Protein Corrected Calcium 7.6 MG/DL (8.5-10.1) Urine Protein 30 mg/dL (NEG-TRACE) Urine Occult Blood MOD (NEG) Urine Leukocyte Esterase MOD (NEG) Urine RBC 150 /hpf (0-3) Urine WBC 28 /hpf (0-5) Urine Bacteria OCC /hpf (NONE) Urine Mucus FEW /lpf (OCC) Phosphorus Level 2.1 MG/DL (2.5-4.9) Hemoglobin A1c 9.6 % (4.3-6.0) Test 10/09/17 06:57 Red Blood Count 3.84 MIL/MM3 (4.50-5.90) Hemoglobin 9.7 GM/DL (13.0-17.0) Hematocrit 29.6 % (39.0-51.0) Mean Corpuscular Volume 77.2 FL (80.0-100.0) Mean Corpuscular Hemoglobin 25.3 PG (27.0-34.0) Neutrophils (%) (Auto) 74.0 % (16.0-70.0) Monocytes (%) (Auto) 10.0 % (0.0-8.0) Random Glucose 130 MG/DL (74-106) Albumin 2.0 GM/DL (3.4-5.0) Calcium Level 7.9 MG/DL (8.5-10.1) Phosphorus Level 1.9 MG/DL (2.5-4.9) Alkaline Phosphatase 129 U/L (45-117) Aspartate Amino Transf (AST/SGOT) 7 U/L (15-37) Alanine Aminotransferase (ALT/SGPT) 8 U/L (12-78) Potassium Level 3.4 MEQ/L (3.5-5.1) Estimat Glomerular Filtration Rate 79 ML/MIN (>89) Imaging Last Impressions Head CT 10/07/17 0600 Signed Impressions: Service Date/Time: Saturday, October 07, 2017 07:26 - CONCLUSION: Stable focal area of subarachnoid blood identified in the sulci of the right parietal lobe. No evidence of significant adjacent edema.. Carolina Lehman MD Chest X-Ray 10/06/17 1601 Signed Impressions: Service Date/Time: Friday, October 06, 2017 16:23 - CONCLUSION: Poor inspiratory chest with mild basilar interstitial vascular prominence. Mild congestion is not excluded. Otherwise stable chest with no other evidence of acute process. Asaf Carney MD PE at Discharge GENERAL: Awake and alert oriented 2 LESS confusion somewhat cooperative can follow some commands SKIN: Warm and dry. HEAD: Atraumatic. Normocephalic. EYES: Pupils equal and round. No scleral icterus. No injection or drainage. Extraocular muscles intact ENT: No nasal bleeding or discharge. Mucous membranes pink and moist. Tongue is midline NECK: Trachea midline. No JVD. Supple CARDIOVASCULAR: Regular rate and rhythm. S1-S2 no S3 or S4 RESPIRATORY: No accessory muscle use. Clear to auscultation. Breath sounds equal bilaterally. GASTROINTESTINAL: Abdomen soft, non-tender, nondistended. Hepatic and splenic margins not palpable. Bilateral nephrostomy tubes in place but yellow drainage MUSCULOSKELETAL: Extremities without clubbing, cyanosis, or edema. No obvious deformities. NEUROLOGICAL: Awake and alert. No obvious cranial nerve deficits. Motor grossly within normal limits. 4 out of 5 muscle strength in the arms and legs. Normal speech. PSYCHIATRIC: INAppropriate mood and affect; insight and judgment ABnormal. Hospital Course This is a 57-year-old male with a PMH of Anxiety, HTN, Hyperlipidemia, CHF ( Echo 06/16/2017 w/ EF 30-35%), CAD, Stage IV Prostate CA, reportedly on Hospice , Hydronephrosis s/p Bilateral Nephrostomy Tubes and DM who was brought to the ER by EMS at Daughter's request for AMS as she is unable to care for him. Pt initially presented to ER on 10/05/[address] Head w/ small SAH, + orthostatic hypotension and UTI. Admitted to ICU, however pt ultimately LEFT AMA. Returns now for worsening AMS per Daughter and apparent fall. Pt poor historian, unable to provide much history. CT Head today notes unchanged small SAH, discussed w/ Senior [employer] Software Engineer, pt ok for medical admission as bleeding unchanged. On arrival, BP 135/69, HR 79, O2 sat 100% RA, Afebrile. CBC essentially at baseline. Creatinine 1.89, previously 1.4904 618. BS 404. Lactic Acid normal. Ammonia 28. Troponin negative. INR 1.1. UA positive for UTI. CT Head with persistent unchanged subarachnoid hemorrhage as above. CXR poor inspiratory chest mild basilar interstitial vascular prominence. While in ER, pt confused, agitated ultimately requiring restraints. 4-8 PATIENT REMAINS CONFUSED BLOOD PRESSURE REMAINS ELEVATED NEEDS HOSPICE TREAT UTI PALLIATIVE CARE CONSULTS 4-9 [facility] ACT HAS BEEN LIFTED BY PSYCHIATRY BLOOD PRESSURE STILL IS BORDERLINE AM LABS DW RN AND PT AND CM TRANSFER OFF FLOOR MONITOR BLOOD PRESSURE 4-10 [facility] ACT HAS BEEN LIFTED WANTS TO GO HOME WITH FAMILY AND HOSPICE DC TO HOME TODAY DW RN AND PT AND CM RESUME HOME HOSPICE Pt Condition on Discharge: Good Discharge Disposition: Hospice/ Home Discharge Time: > 30 minutes Discharge Instructions DIET: Follow Instructions for: As Tolerated, No Restrictions, Heart Healthy Diet Speech Therapy-Diet Recommends: Regular Activities you can perform: Regular-No Restrictions Follow up Referrals: PCP Follow-up - 2-3 Days New Medications: Cefuroxime (Ceftin) 250 Mg Tab 250 MG PO BID for Infection for 10 Days, #20 TAB Fluconazole (Diflucan) 100 Mg Tab 100 MG PO DAILY for Infection, #10 TAB Continued Medications: Alprazolam (Alprazolam) 0.5 Mg Tab 0.5 MG PO Q4H PRN for ANXIETY, #60 TAB 0 Refills (This prescription has been renewed) Carvedilol (Coreg) 12.5 Mg Tab 12.5 MG PO BID for Blood Pressure Management, #60 TAB 0 Refills (This prescription has been renewed) Escitalopram (Escitalopram) 10 Mg Tab 10 MG PO DAILY for Depression Control, #30 TAB 0 Refills (This prescription has been renewed) Gabapentin (Gabapentin) 300 Mg Cap 300 MG PO BID for Pain Management, #60 CAP 0 Refills (This prescription has been renewed) Haloperidol (Haloperidol) 1 Mg Tab 1 MG PO BID for Anxiety, #60 TAB 0 Refills (This prescription has been renewed) Hydrocodone-Acetaminophen (Hydrocodone-Acetaminophen) 10-325 mg Tab 1 TAB PO Q6HR PRN for PAIN SCALE 5 TO 10, #120 TAB (This prescription has been renewed) Hydromorphone (Hydromorphone) 2 Mg Tab 2 MG PO Q4H PRN for PAIN, TAB 0 Refills Hydromorphone (Hydromorphone) 4 Mg Tab 4 MG PO Q4H PRN for PAIN, TAB 0 Refills Hydromorphone (Hydromorphone) 4 Mg Tab 6 MG PO Q4HR PRN for PAIN, TAB 0 Refills Insulin Aspart Inj (Novolog Flexpen Inj) 300 Unit/3 Ml Pen SQ TIDAC for Blood Sugar Management, #1 PEN 0 Refills PER SLIDING SCALE Insulin Glargine Inj (Lantus Inj) 1,000 Unit/10 Ml Vial 15 UNITS SQ HS for Blood Sugar Management, VIAL 0 Refills Lisinopril (Lisinopril) 20 Mg Tab 20 MG PO DAILY for Blood Pressure Management, #30 TAB 0 Refills (This prescription has been renewed) Morphine Sulfate (Morphine Sulfate) 20 Mg/Ml Syringe 0.75-1 ML PO Q4HR PRN for BREAKTHROUGH PAIN Omeprazole (Omeprazole) 20 Mg Tab 20 MG PO BID for Manage Heartburn, #60 TAB 0 Refills (This prescription has been renewed) Prochlorperazine Maleate (Prochlorperazine Maleate) 10 Mg Tab 10 MG PO Q4H PRN for NAUSEA OR VOMITING, #30 TAB 0 Refills (This prescription has been renewed) Sennosides-Docusate Sodium (Senna-Plus) 8.6-50 Mg Tab 3 TAB PO BID for Constipation, #180 TAB 0 Refills (This prescription has been renewed) Sucralfate (Sucralfate) 1 Gram Tab 1 GM PO TID for Duodenal ulcer, #90 TAB 0 Refills (This prescription has been renewed) on empty stomach Tamsulosin (Flomax) 0.4 Mg Cap 0.4 MG PO HS for Manage Prostate Problems, #30 CAP 0 Refills (This prescription has been renewed) Additional Information HOSPICE TO FOLLOW AT HOME Amarjit Albarran DO Oct 09, 2017 13:14
== END 2017-10-09 17:37 | disposition home or self-care (01) | DRG 85 ==
LOC: NEPE 15:42 → NEDA 20:00 → NEDH 10-07 07:28 → HCIS 10-07 17:05
PROVIDERS: ADMIT Hospitalist; ATTEND Hospitalist
DX: S06.6X0A Traumatic subarachnoid hemorrhage without loss of consciousness, initial encounter (principal); G93.41 Metabolic encephalopathy; I11.0 Hypertensive heart disease with heart failure; C79.11 Secondary malignant neoplasm of bladder; C79.51 Secondary malignant neoplasm of bone; I50.22 Chronic systolic (congestive) heart failure; N13.5 Crossing vessel and stricture of ureter without hydronephrosis; B37.49 Other urogenital candidiasis; E10.40 Type 1 diabetes mellitus with diabetic neuropathy, unspecified; E10.65 Type 1 diabetes mellitus with hyperglycemia; C61 Malignant neoplasm of prostate; I25.10 Atherosclerotic heart disease of native coronary artery without angina pectoris; E78.5 Hyperlipidemia, unspecified; I95.1 Orthostatic hypotension; D63.0 Anemia in neoplastic disease; N13.9 Obstructive and reflux uropathy, unspecified; E87.6 Hypokalemia; R29.6 Repeated falls; F41.9 Anxiety disorder, unspecified; W19.XXXA Unspecified fall, initial encounter; Z51.5 Encounter for palliative care; Z78.1 Physical restraint status; Z79.4 Long term (current) use of insulin; Z80.0 Family history of malignant neoplasm of digestive organs; Z82.49 Family history of ischemic heart disease and other diseases of the circulatory system; Z83.3 Family history of diabetes mellitus; Z91.14 Patient's other noncompliance with medication regimen; Z91.19 Patient's noncompliance with other medical treatment and regimen; Z93.6 Other artificial openings of urinary tract status; Z95.5 Presence of coronary angioplasty implant and graft
CPT/HCPCS: 70450; 71045; 80053; 81001; 82010; 82140; 82550; 82948; 83036; 83605; 83735; 84100; 84439; 84443; 84484; 85025; 85610; 85730; 87040; 87086; 93005; 96374; J0696; J1815; J2060; J2270; J3475; J7030

== ENCOUNTER 2017-11-17 10:35 | Inpatient (IN) | payer OTHER, MEDICARE, MEDICAID ==
[~2017-11-17] VITALS: Ht 182.9 cm; Wt 95.2 kg
[2017-11-17] VITALS (11 sets, daily range): BP systolic 83–117; BP diastolic 50–64; PULSE 61–80; RESP 13–16; TEMP 98–98.2; O2SAT 94–99
[~2017-11-17 10:35] MED LIST changes: +CEFU1TAB18 PO; +DIFL100T PO; -WALKER WHEELS/F1 MIS; -WHEEMIS3
[2017-11-17] MEDS ORDERED: SODIUM CHLOR 0.9% 1000 ML INJ 1,000 ML IV SCH ×2 (11:06→22:15)
[2017-11-17] MEDS ORDERED: SODIUM CHLORIDE 0.9% FLUSH 10 ML FLUSH IV FLUSH PRN ×2 (11:15→14:45)
--- NOTE | 2017-11-17 11:18 | PD ---
HPI Chief Complaint: Fall Time Seen by Provider: 11:06 Travel History International Travel<30 days: No Contact w/Intl Traveler<30days: No Traveled to known affect area: No History of Present Illness HPI 57-year-old male patient with history of hypertension, diabetes, previous testicular cancer status post treatment, current prostate cancer with bone metastases currently on hospice, presents to the ER from home sent in by apparently because he has been having a lot of falls in the past few days, and is complaining of right shoulder pain, unclear whether he lost consciousness or not. He is currently fairly disoriented in the ER, does not really know why he is here. According to the patient's , apparently she does not feel that she can care for him at home anymore. Modifying Factors: None Associated Signs & Symptoms: Altered mental status, falls, right shoulder pain Risk Factors: Prostate cancer with bone metastases PFSH Past Medical History Autoimmune Disease: No Anxiety: Yes Depression: No Cancer: Yes (TESTICULAR, PROSTATE) Cardiac Catheterization: Yes Cardiovascular Problems: Yes High Cholesterol: Yes Congestive Heart Failure: Yes Cerebrovascular Accident: No Diabetes: Yes Patient Takes Glucophage: No Diminished Hearing: No Endocrine: Yes Gastrointestinal Disorders: Yes (nausea vomiting ) Genitourinary: No Hypertension: Yes Immune Disorder: No Implanted Vascular Access Dvce: Yes Musculoskeletal: No Neurologic: Yes (NEUROPATHY) Psychiatric: Yes Reproductive: No Respiratory: Yes Migraines: No Radiation Therapy: No Seizures: No Thyroid Disease: No Tetanus Vaccination: < 5 Years Influenza Vaccination: Yes Past Surgical History Abdominal Surgery: No AICD: No Arteriovenous Shunt: No Body Medical Devices: cardiac stent Cardiac Surgery: Yes Coronary Stent: Yes Ear Surgery: No Endocrine Surgery: No Eye Surgery: No Genitourinary Surgery: Yes (BILAT NEPH TUBES, TESTICULAR SX) Gynecologic Surgery: No Insulin Pump: No Joint Replacement: No Oral Surgery: No Pacemaker: No Thoracic Surgery: No Other Surgery: Yes (TESTICULAR SX DUE TO CA) Social History Alcohol Use: No Tobacco Use: No Substance Use: No Allergies-Medications (Allergen,Severity, Reaction): Coded Allergies: glyburide (Verified Allergy, Severe, RASH, 11/17/17) amlodipine (Verified Allergy, Unknown, 11/17/17) rhabdomyolysis atorvastatin (Verified Allergy, Unknown, 11/17/17) rhabdomyolysis metformin (Verified Allergy, Unknown, Rash, 11/17/17) pravastatin (Verified Allergy, Unknown, 11/17/17) rhabdomyolysis simvastatin (Verified Allergy, Unknown, 11/17/17) rhabdomyolysis Reported Meds & Prescriptions Reported Meds & Active Scripts Active Sucralfate 1 Gram Tab 1 Gm PO TID on empty stomach Haloperidol 1 Mg Tab 1 Mg PO BID Senna-Plus (Sennosides-Docusate Sodium) 8.6-50 Mg Tab 3 Tab PO BID Prochlorperazine Maleate 10 Mg Tab 10 Mg PO Q4H PRN Omeprazole 20 Mg Tab 20 Mg PO BID Escitalopram (Escitalopram Oxalate) 10 Mg Tab 10 Mg PO DAILY Coreg (Carvedilol) 12.5 Mg Tab 12.5 Mg PO BID Gabapentin 300 Mg Cap 300 Mg PO BID Flomax (Tamsulosin HCl) 0.4 Mg Cap 0.4 Mg PO HS Commode 3-in-1 (Device) 1 Mis Mis Ea .ROUTE DIRECTED Reported Lorazepam 2 Mg Tab 2 Mg PO Q2HR PRN Furosemide 40 Mg Tab 40 Mg PO DAILY Duoneb (Ipratropium-Albuterol Neb) 0.5-2.5 Mg/3 Ml Neb 1 Nebule INH Q4HR NEB Hydromorphone (Hydromorphone HCl) 4 Mg Tab 6 Mg PO Q4HR PRN Hydromorphone (Hydromorphone HCl) 4 Mg Tab 4 Mg PO Q4H PRN Lantus Inj (Insulin Glargine) 1,000 Unit/10 Ml Vial 15 Units SQ HS Novolog Flexpen Inj (Insulin Aspart) 300 Unit/3 Ml Pen SQ TIDAC PER SLIDING SCALE Review of Systems ROS Limitations: Altered Mental Status Physical Exam Narrative GENERAL: Well-developed middle-age white male patient currently and moderate distress, awake, but disoriented. SKIN: Focused skin assessment warm/dry. HEAD: Atraumatic. Normocephalic. EYES: Pupils pinpoint equal and round. No scleral icterus. No injection or drainage. ENT: No nasal bleeding or discharge. Mucous membranes pink and moist. NECK: Trachea midline. No JVD. CARDIOVASCULAR: Regular rate and rhythm. No murmur appreciated. RESPIRATORY: No accessory muscle use. Clear to auscultation. Breath sounds equal bilaterally. GASTROINTESTINAL: Abdomen soft, non-tender, nondistended. Hepatic and splenic margins not palpable. MUSCULOSKELETAL: No obvious deformities. No clubbing. No cyanosis. No edema. NEUROLOGICAL: Awake and alert. No obvious cranial nerve deficits. Motor grossly within normal limits. Slurred speech. PSYCHIATRIC: Appropriate mood and affect; insight and judgment poor. Data Data Last Documented VS Vital Signs Date Time Temp Pulse Resp B/P (MAP) Pulse Ox O2 Delivery O2 Flow Rate FiO2 11/17/17 14:00 70 16 93/51 (65) 98 Nasal Cannula 3.00 11/17/17 10:40 98.0 Orders Orders Electrocardiogram (11/17/17 11:06) Ammonia (11/17/17 11:06) Complete Blood Count With Diff (11/17/17 11:06) Comprehensive Metabolic Panel (11/17/17 11:06) Prothrombin Time / Inr (Pt) (11/17/17 11:06) Act Partial Throm Time (Ptt) (11/17/17 11:06) Troponin I (11/17/17 11:06) Urinalysis - C+S If Indicated (11/17/17 11:06) Lactic Acid Sepsis Protocol (11/17/17 11:06) Blood Culture (11/17/17 11:06) Chest, Single Ap (11/17/17 11:06) Ct Brain W/O Iv Contrast(Rout) (11/17/17 11:06) Blood Glucose (11/17/17 11:06) Ecg Monitoring (11/17/17 11:06) Iv Access Insert/Monitor (11/17/17 11:06) Cath For Specimen (11/17/17 11:06) Oximetry (11/17/17 11:06) Sodium Chloride 0.9% Flush (Ns Flush) (11/17/17 11:15) Sodium Chlor 0.9% 1000 Ml Inj (Ns 1000 M (11/17/17 11:06) Sodium Chlor 0.9% 1000 Ml Inj (Ns 1000 M (11/17/17 12:45) Piperacil-Tazo 4.5 Gm Premix (Zosyn 4.5 (11/17/17 12:39) Hospice Consult (11/17/17 12:58) Urine Culture (11/17/17 12:34) Aspirin (Aspirin) (11/17/17 14:00) Admit Order (Ed Use Only) (11/17/17 14:05) Labs Laboratory Tests Test 11/17/17 11:05 11/17/17 12:34 White Blood Count 23.9 TH/MM3 Red Blood Count 4.18 MIL/MM3 Hemoglobin 10.2 GM/DL Hematocrit 32.7 % Mean Corpuscular Volume 78.3 FL Mean Corpuscular Hemoglobin 24.5 PG Mean Corpuscular Hemoglobin Concent 31.3 % Red Cell Distribution Width 16.7 % Platelet Count 386 TH/MM3 Mean Platelet Volume 8.1 FL Neutrophils (%) (Auto) 92.1 % Lymphocytes (%) (Auto) 3.8 % Monocytes (%) (Auto) 3.8 % Eosinophils (%) (Auto) 0.0 % Basophils (%) (Auto) 0.3 % Neutrophils # (Auto) 22.1 TH/MM3 Lymphocytes # (Auto) 0.9 TH/MM3 Monocytes # (Auto) 0.9 TH/MM3 Eosinophils # (Auto) 0.0 TH/MM3 Basophils # (Auto) 0.1 TH/MM3 CBC Comment DIFF FINAL Differential Comment Prothrombin Time 11.9 SEC Prothromb Time International Ratio 1.2 RATIO Activated Partial Thromboplast Time 31.7 SEC Blood Urea Nitrogen 45 MG/DL Creatinine 3.49 MG/DL Random Glucose 269 MG/DL Total Protein 8.3 GM/DL Albumin 2.3 GM/DL Calcium Level 8.4 MG/DL Alkaline Phosphatase 170 U/L Aspartate Amino Transf (AST/SGOT) 18 U/L Alanine Aminotransferase (ALT/SGPT) 9 U/L Total Bilirubin 0.7 MG/DL Sodium Level 133 MEQ/L Potassium Level 5.5 MEQ/L Chloride Level 95 MEQ/L Carbon Dioxide Level 24.6 MEQ/L Anion Gap 13 MEQ/L Estimat Glomerular Filtration Rate 18 ML/MIN Lactic Acid Level 1.9 mmol/L Ammonia 18 MCMOL/L Troponin I 1.52 NG/ML Urine Color YELLOW Urine Turbidity TURBID Urine pH 5.0 Urine Specific [place] 1.020 Urine Protein 100 mg/dL Urine Glucose (UA) 70 mg/dL Urine Ketones TRACE mg/dL Urine Occult Blood LARGE Urine Nitrite NEG Urine Bilirubin NEGATIVE Urine Urobilinogen 2.0 MG/DL Urine Leukocyte Esterase MOD Urine RBC /hpf Urine WBC /hpf Urine WBC Clumps RARE Urine Bacteria MANY /hpf Urine Hyaline Casts 39 /lpf Microscopic Urinalysis Comment CATH-CULTURE IND MDM Medical Decision Making Medical Screen Exam Complete: Yes Emergency Medical Condition: Yes Medical Record Reviewed: Yes Interpretation(s) EKG shows NSR, no ST elevation or depression, and no arrhythmias. No significant T-wave inversions. Laboratory Tests Test 11/17/17 11:05 11/17/17 12:34 White Blood Count 23.9 TH/MM3 (4.0-11.0) Red Blood Count 4.18 MIL/MM3 (4.50-5.90) Hemoglobin 10.2 GM/DL (13.0-17.0) Hematocrit 32.7 % (39.0-51.0) Mean Corpuscular Volume 78.3 FL (80.0-100.0) Mean Corpuscular Hemoglobin 24.5 PG (27.0-34.0) Mean Corpuscular Hemoglobin Concent 31.3 % (32.0-36.0) Neutrophils (%) (Auto) 92.1 % (16.0-70.0) Lymphocytes (%) (Auto) 3.8 % (9.0-44.0) Neutrophils # (Auto) 22.1 TH/MM3 (1.8-7.7) Lymphocytes # (Auto) 0.9 TH/MM3 (1.0-4.8) Prothrombin Time 11.9 SEC (9.8-11.6) Activated Partial Thromboplast Time 31.7 SEC (24.3-30.1) Blood Urea Nitrogen 45 MG/DL (7-18) Creatinine 3.49 MG/DL (0.60-1.30) Random Glucose 269 MG/DL (74-106) Total Protein 8.3 GM/DL (6.4-8.2) Albumin 2.3 GM/DL (3.4-5.0) Calcium Level 8.4 MG/DL (8.5-10.1) Alkaline Phosphatase 170 U/L (45-117) Alanine Aminotransferase (ALT/SGPT) 9 U/L (12-78) Sodium Level 133 MEQ/L (136-145) Potassium Level 5.5 MEQ/L (3.5-5.1) Chloride Level 95 MEQ/L (98-107) Estimat Glomerular Filtration Rate 18 ML/MIN (>89) Troponin I 1.52 NG/ML (0.02-0.05) Urine Protein 100 mg/dL (NEG-TRACE) Urine Glucose (UA) 70 mg/dL (NEG) Urine Ketones TRACE mg/dL (NEG) Urine Occult Blood LARGE (NEG) Urine Leukocyte Esterase MOD (NEG) Urine WBC Clumps RARE (NONE) Urine Bacteria MANY /hpf (NONE) Last [address] 11/17/17 1106 Signed Impressions: Service Date/Time: Friday, November 17, 2017 13:09 - CONCLUSION: 1. Subtle increased density in the extra-axial right frontal mid to low convexities which may reflect subacute to chronic extra-axial blood products. 2. Moderate diffuse stable volume loss and periventricular small vessel ischemic white matter demyelination out of proportion to age. Gibson Wagner MD Chest X-Ray 11/17/17 1106 Signed Impressions: Service Date/Time: Friday, November 17, 2017 11:32 - CONCLUSION: 1. Minimal left lung base atelectasis. 2. Diffuse osseous metastatic disease. Gibson Wagner MD Differential Diagnosis Altered mental status, falls: Acute intracranial processes versus metabolic issues versus dehydration versus Narrative Course Initial CAT scan shows questionable subacute bleeds in the right side of the brain but radiology report also states that there is nothing acute. His lab work returned showing acute renal failure with fairly elevated BUN and creatinine, slightly elevated potassium. EKG did not show any signs of acute changes. No dysrhythmias were identified. He has a significant UTI white count is elevated and I suspect he has underlying sepsis. Blood cultures were drawn and IV antibiotics were initiated in the ER. He is not complaining of chest pains but his troponin is fairly elevated. Aspirin was given in the ER for non-ST elevation [place]. Case was discussed with Dr. Ram, cardiology on- call, and he states that he would hold off on heparin especially because of the brain findings. Case was discussed with Dr. Boss for admission To critical care unit. In addition, patient is a hospice patient and hospice has requested that I put in an order for hospice consult as well so they can follow along with his care. I have discussed findings and explain need for admission with patient and his mom and they are agreeable to the admission. Aggregate critical care time was 35 minutes. Time to perform other separately billable procedures was not included in the critical care time. My time did not include minutes spent treating any other patients simultaneously or on activities that did not directly contribute to the patient's treatment. The services I provided to this patient were to treat and/or prevent clinically significant deterioration that could result in: Worsening renal failure, worsening [place], dysrhythmias, ICH, I provided critical care services requiring my management, as noted below: Chart data review, documentation time, medication orders and management, vital sign assessments/reviewing monitor data, ordering and reviewing lab tests, ordering and interpreting/reviewing x-rays and diagnostic studies, care of the patient and discussion of the patient with the admitting physicians. Diagnosis Primary Impression: Severe sepsis Additional Impressions: Non-ST elevation [place] (NSTEMI) Acute renal failure UTI (urinary tract infection) Admitting Information Admitting Physician Requests: Admit Amanuel Hare MD November 17, 2017 11:18
[2017-11-17] MEDS ORDERED: IPRASOL INH (11:35)
[2017-11-17] MEDS ORDERED: LORA2TAB7 PO (11:35)
[2017-11-17] MEDS ORDERED: FURO40TA PO (11:35)
[2017-11-17 11:37] LABS: AUTOMATED NEUTROPHIL # 22.1 TH/MM3 (1.8-7.7); BASOPHIL # 0.1 TH/MM3 (0-0.2); BASOPHIL % 0.3 % (0.0-2.0); HEMATOCRIT 32.7 % (39.0-51.0); HEMOGLOBIN 10.2 GM/DL (13.0-17.0); LYMPH % 3.8 % (9.0-44.0); LYMPHOCYTE # 0.9 TH/MM3 (1.0-4.8); MEAN CELL VOLUME 78.3 FL (80.0-100.0); MEAN CORPUSCULAR HEMOGLOBIN 24.5 PG (27.0-34.0); MEAN CORPUSCULAR HGB CONC 31.3 % (32.0-36.0); MEAN PLATELET VOLUME 8.1 FL (7.0-11.0); MONO % 3.8 % (0.0-8.0); MONOCYTE # 0.9 TH/MM3 (0-0.9); NEUT % 92.1 % (16.0-70.0); PLATELET COUNT 386 TH/MM3 (150-450); RED BLOOD COUNT 4.18 MIL/MM3 (4.50-5.90); RED CELL DISTRIBUTION WIDTH 16.7 % (11.6-17.2); WHITE BLOOD COUNT 23.9 TH/MM3 (4.0-11.0)
[2017-11-17 11:49] LABS: INTERNATIONAL NORMALIZED RATIO 1.2 RATIO; PROTHROMBIN TIME - PATIENT 11.9 SEC (9.8-11.6)
[2017-11-17 11:58] LABS: ALBUMIN 2.3 GM/DL (3.4-5.0); ALT (GPT) 9 U/L (12-78); BICARBONATE 24.6 MEQ/L (21.0-32.0); BLOOD UREA NITROGEN 45 MG/DL (7-18); CALCIUM 8.4 MG/DL (8.5-10.1); CHLORIDE 95 MEQ/L (98-107); CREATININE 3.49 MG/DL (0.60-1.30); GLOMERULAR FILTRATION RATE 18 ML/MIN (>89); GLUCOSE,RANDOM 269 MG/DL (74-106); SODIUM (NA) 133 MEQ/L (136-145)
--- NOTE | 2017-11-17 12:02 | RADRPT ---
EXAM DATE/TIME: 11/17/2017 11:32 [facility] COMPARISON: CT PULMONARY ANGIOGRAM, October 06, 2017, 2:51. CHEST SINGLE AP, October 06, 2017, 16:23. INDICATIONS : Syncope. MEDICAL HISTORY : Cardiovascular disease. Hypertension. Carcinoma, prostate.Diabetes SURGICAL HISTORY : Bilateral nephrostomys ENCOUNTER: Initial ACUITY: 1 day PAIN SCORE: 0/10 LOCATION: Bilateral chest FINDINGS: Minimal linear parenchymal opacities in the left lung base. Cardiomediastinal contours are within nor mal limits. Healed right-sided rib fractures. A diffuse sclerotic metastases throughout the spine, mu ltiple ribs and bilateral humeri. CONCLUSION: 1. Minimal left lung base atelectasis. 2. Diffuse osseous metastatic disease. Gibson Wagner MD on November 17, 2017 at 11:58 Board Certified Radiologist. This report was verified electronically.
[2017-11-17 12:12] LABS: ALKALINE PHOSPHATASE 170 U/L (45-117); AST (GOT) 18 U/L (15-37); TOTAL BILIRUBIN ADULT 0.7 MG/DL (0.2-1.0); TOTAL PROTEIN 8.3 GM/DL (6.4-8.2)
[2017-11-17 12:16] LABS: TROPONIN I 1.52 NG/ML (0.02-0.05)
[2017-11-17] MEDS ORDERED: PIPERACIL-TAZO 4.5 GM PREMIX 100 ML IV STA (12:39)
[2017-11-17] MEDS ORDERED: SODIUM CHLOR 0.9% 1000 ML INJ 1,000 ML IV ONE (12:45)
--- NOTE | 2017-11-17 13:41 | RADRPT ---
EXAM DATE/TIME: 11/17/2017 13:09 [place] COMPARISON: CT BRAIN W/O CONTRAST, October 07, 2017, 7:26. INDICATIONS : Altered mental status. multiple falls. RADIATION DOSE: 56.35 CTDIvol (mGy) MEDICAL HISTORY : Cardiovascular disease. Congestive heart failure. Hypertension.testicular cancer, prostate cancer. Ch emotherapy. Diabetes. SURGICAL HISTORY : None. ENCOUNTER: Initial ACUITY: 1 day PAIN SCALE: 0/10 LOCATION: cranial TECHNIQUE: Multiple contiguous axial images were obtained of the head. Using automated exposure control and adj ustment of the mA and/or kV according to patient size, radiation dose was kept as low as reasonably a chievable to obtain optimal diagnostic quality images. DICOM format image data is available electro nically for review and comparison. FINDINGS: CEREBRUM: Moderate diffuse cerebral volume loss. Subtle increased extra-axial density in the right frontal mid to low convexities. Prominent periventricular white matter hypodensities. The ventricles are normal f or degree of atrophy. No evidence of midline shift, mass lesion, hemorrhage or acute infarction. No extra-axial fluid collections are seen. POSTERIOR FOSSA: The cerebellum and brainstem are intact. The 4th ventricle is midline. The cerebellopontine angle i s unremarkable. EXTRACRANIAL: The visualized portion of the orbits is intact. SKULL: The calvaria is intact. No evidence of skull fracture. CONCLUSION: 1. Subtle increased density in the extra-axial right frontal mid to low convexities which may reflect subacute to chronic extra-axial blood products. 2. Moderate diffuse stable volume loss and periventricular small vessel ischemic white matter [place] out of proportion to age. Gibson Wagner MD on November 17, 2017 at 13:35 Board Certified Radiologist. This report was verified electronically.
[2017-11-17 13:52] LABS: BILIRUBIN, URINE NEGATIVE (NEG); BLOOD, URINE LARGE (NEG); GLUCOSE,URINE 70 mg/dL (NEG); KETONE, URINE TRACE mg/dL (NEG); NITRITE,URINE NEG (NEG); URINE COLOR YELLOW (YELLW/STRAW); URINE LEUKOCYTE ESTERASE MOD (NEG)
[2017-11-17 13:53] LABS: HYALINE CAST, URINE 39 /lpf (RARE)
[2017-11-17 13:54] LABS: BACTERIA, URINE MANY /hpf; WHITE BLOOD CELL CLUMPS RARE
[2017-11-17] MEDS ORDERED: ASPIRIN 325 MG TAB PO ONE (14:00)
[2017-11-17] MEDS ORDERED: MAGNESIUM HYDROXIDE SUSP 30 ML CUP PO PRN (14:45)
[2017-11-17] MEDS ORDERED: CHLORHEXIDINE GLUCONATE 2 % 1 PACK (2 CLOTHS) TOP PRN (14:45)
[2017-11-17] MEDS ORDERED: SENNOSIDES 8.6 MG TAB PO PRN (14:45)
[2017-11-17] MEDS ORDERED: RESP: ALBUTEROL 2.5 MG/IPRATROPIUM 0.5 MG NEB (PRN) INH (14:45)
[2017-11-17] MEDS ORDERED: BISACODYL 10 MG SUPP RECTAL PRN (14:45)
[2017-11-17] MEDS ORDERED: NURSING INFORMATION XX SCH (14:45)
[2017-11-17] MEDS ORDERED: ONDANSETRON HCL 4 MG/2 ML VIAL IV PUSH PRN (14:45)
[2017-11-17] MEDS ORDERED: LACTULOSE SYRUP 20 GM/30 ML CUP PO PRN (14:45)
[2017-11-17] MEDS ORDERED: DEXTROSE 50% IN WATER 50 ML VIAL(D50) IV PUSH PRN (15:00)
[2017-11-17] MEDS ORDERED: GLUCAGON 1 MG/ML VIAL OTHER PRN (15:00)
--- NOTE | 2017-11-17 15:17 | HHI.HP ---
HPI Service Critical Care Medicine Primary Care Physician Unknown Admission Diagnosis Sepsis/UTI/hypotension/acute renal failure Diagnosis: (1) Acute metabolic encephalopathy (2) UTI (urinary tract infection) (3) Delirium due to another medical condition (4) Debility (5) Acute on chronic renal failure (6) SAH (subarachnoid hemorrhage) Travel History International Travel<30 Days: No Contact w/Intl Traveler <30 Da: No Traveled to Known Affected Are: No History of Present Illness History of Present Illness HPI This is a 57-year-old male that presented to the ED with complaints of recurrent falls and complaints of right shoulder pain. The patient's medical history significant for hypertension, hyperlipidemia, congestive heart failure, coronary artery disease, anxiety disorder,depression, stage IV prostate cancer with bone metastasis, previous testicular cancer, status post treatment. The patient currently is registered with [facility] hospice. He is currently fairly disoriented in the ER, does not really know why he is here. According to the patient's , there is difficulty caring for him at home. Review of medical records Echo 06/16/17 showed an EF30-35%, patient previously followed by Dr. Ram. The patient was recently admitted 10/06/17 for subarachnoid hemorrhage and altered mental status, UTI and encephalopathy and left AMA. Imaging and laboratory studies revealed dehydration with an elevated creatinine of 3.49 and possible urosepsis, culture pending. Patient was bolused with 1 L of fluid and received Zosyn. upon initial admission the patient had systolic blood pressure 80-90, critical care medicine was consulted. History PFSH Past Medical History Autoimmune Disease: No Anxiety: Yes Depression: No Cancer: Yes (TESTICULAR, PROSTATE) Cardiac Catheterization: Yes Cardiovascular Problems: Yes High Cholesterol: Yes Congestive Heart Failure: Yes Cerebrovascular Accident: No Diabetes: Yes Patient Takes Glucophage: No Diminished Hearing: No Endocrine: Yes Gastrointestinal Disorders: Yes (nausea vomiting ) Genitourinary: No Hypertension: Yes Immune Disorder: No Implanted Vascular Access Dvce: Yes Musculoskeletal: No Neurologic: Yes (NEUROPATHY) Psychiatric: Yes Reproductive: No Respiratory: Yes Migraines: No Radiation Therapy: No Seizures: No Thyroid Disease: No Tetanus Vaccination: < 5 Years Influenza Vaccination: Yes Past Surgical History Abdominal Surgery: No AICD: No Arteriovenous Shunt: No Body Medical Devices: cardiac stent Cardiac Surgery: Yes Coronary Stent: Yes Ear Surgery: No Endocrine Surgery: No Eye Surgery: No Genitourinary Surgery: Yes (BILAT NEPH TUBES, TESTICULAR SX) Gynecologic Surgery: No Insulin Pump: No Joint Replacement: No Oral Surgery: No Pacemaker: No Thoracic Surgery: No Other Surgery: Yes (TESTICULAR SX DUE TO CA) Social History Alcohol Use: No Tobacco Use: No Substance Use: No Allergies-Medications Allergies-Medications (Allergen,Severity, Reaction): Coded Allergies: glyburide (Verified Allergy, Severe, RASH, 11/17/17) amlodipine (Verified Allergy, Unknown, 11/17/17) rhabdomyolysis atorvastatin (Verified Allergy, Unknown, 11/17/17) rhabdomyolysis metformin (Verified Allergy, Unknown, Rash, 11/17/17) pravastatin (Verified Allergy, Unknown, 11/17/17) rhabdomyolysis simvastatin (Verified Allergy, Unknown, 11/17/17) rhabdomyolysis Reported Meds & Prescriptions Reported Meds & Active Scripts Active Sucralfate 1 Gram Tab 1 Gm PO TID on empty stomach Haloperidol 1 Mg Tab 1 Mg PO BID Senna-Plus (Sennosides-Docusate Sodium) 8.6-50 Mg Tab 3 Tab PO BID Prochlorperazine Maleate 10 Mg Tab 10 Mg PO Q4H PRN Omeprazole 20 Mg Tab 20 Mg PO BID Escitalopram (Escitalopram Oxalate) 10 Mg Tab 10 Mg PO DAILY Coreg (Carvedilol) 12.5 Mg Tab 12.5 Mg PO BID Gabapentin 300 Mg Cap 300 Mg PO BID Flomax (Tamsulosin HCl) 0.4 Mg Cap 0.4 Mg PO HS Commode 3-in-1 (Device) 1 Mis Mis Ea .ROUTE DIRECTED Reported Lorazepam 2 Mg Tab 2 Mg PO Q2HR PRN Furosemide 40 Mg Tab 40 Mg PO DAILY Duoneb (Ipratropium-Albuterol Neb) 0.5-2.5 Mg/3 Ml Neb 1 Nebule INH Q4HR NEB Hydromorphone (Hydromorphone HCl) 4 Mg Tab 6 Mg PO Q4HR PRN Hydromorphone (Hydromorphone HCl) 4 Mg Tab 4 Mg PO Q4H PRN Lantus Inj (Insulin Glargine) 1,000 Unit/10 Ml Vial 15 Units SQ HS Novolog Flexpen Inj (Insulin Aspart) 300 Unit/3 Ml Pen SQ TIDAC PER SLIDING SCALE ROS Review of Systems ROS Limitations: Altered Mental Status Physical Exam Vital Signs Vital Signs Date Time Temp Pulse Resp B/P (MAP) Pulse Ox O2 Delivery O2 Flow Rate FiO2 11/17/17 14:00 70 16 93/51 (65) 98 Nasal Cannula 3.00 11/17/17 13:00 72 16 87/50 (62) 97 Nasal Cannula 3.00 11/17/17 12:00 74 16 83/50 (61) 95 Nasal Cannula 3.00 11/17/17 11:27 16 98 Nasal Cannula 2.00 11/17/17 11:00 76 16 89/50 (63) 99 Nasal Cannula 4.00 11/17/17 10:40 98.0 77 16 117/64 (81) 99 Laboratory Laboratory Tests Test 11/17/17 11:05 11/17/17 12:34 White Blood Count 23.9 Red Blood Count 4.18 Hemoglobin 10.2 Hematocrit 32.7 Mean Corpuscular Volume 78.3 Mean Corpuscular Hemoglobin 24.5 Mean Corpuscular Hemoglobin Concent 31.3 Red Cell Distribution Width 16.7 Platelet Count 386 Mean Platelet Volume 8.1 Neutrophils (%) (Auto) 92.1 Lymphocytes (%) (Auto) 3.8 Monocytes (%) (Auto) 3.8 Eosinophils (%) (Auto) 0.0 Basophils (%) (Auto) 0.3 Neutrophils # (Auto) 22.1 Lymphocytes # (Auto) 0.9 Monocytes # (Auto) 0.9 Eosinophils # (Auto) 0.0 Basophils # (Auto) 0.1 CBC Comment DIFF FINAL Differential Comment Prothrombin Time 11.9 Prothromb Time International Ratio 1.2 Activated Partial Thromboplast Time 31.7 Blood Urea Nitrogen 45 Creatinine 3.49 Random Glucose 269 Total Protein 8.3 Albumin 2.3 Calcium Level 8.4 Alkaline Phosphatase 170 Aspartate Amino Transf (AST/SGOT) 18 Alanine Aminotransferase (ALT/SGPT) 9 Total Bilirubin 0.7 Sodium Level 133 Potassium Level 5.5 Chloride Level 95 Carbon Dioxide Level 24.6 Anion Gap 13 Estimat Glomerular Filtration Rate 18 Lactic Acid Level 1.9 Ammonia 18 Troponin I 1.52 Urine Color YELLOW Urine Turbidity TURBID Urine pH 5.0 Urine Specific [place] 1.020 Urine Protein 100 Urine Glucose (UA) 70 Urine Ketones TRACE Urine Occult Blood LARGE Urine Nitrite NEG Urine Bilirubin NEGATIVE Urine Urobilinogen 2.0 Urine Leukocyte Esterase MOD Urine RBC Urine WBC Urine WBC Clumps RARE Urine Bacteria MANY Urine Hyaline Casts 39 Microscopic Urinalysis Comment CATH-CULTURE IND Date/Time Source Procedure Growth Status 11/17/17 11:15 Blood Peripheral Aerobic Blood Culture Pending Received 11/17/17 11:15 Blood Peripheral Anaerobic Blood Culture Pending Received 11/17/17 12:34 Urine Catheterized Urine Urine Culture Pending Received Result Diagram: 11/17/17 1105 11/17/17 1105 Imaging Last Impressions Head CT 11/17/17 1106 Signed Impressions: Service Date/Time: Friday, November 17, 2017 13:09 - CONCLUSION: 1. Subtle increased density in the extra-axial right frontal mid to low convexities which may reflect subacute to chronic extra-axial blood products. 2. Moderate diffuse stable volume loss and periventricular small vessel ischemic white matter demyelination out of proportion to age. Gibson Wagner MD Chest X-Ray 11/17/17 1106 Signed Impressions: Service Date/Time: Friday, November 17, 2017 11:32 - CONCLUSION: 1. Minimal left lung base atelectasis. 2. Diffuse osseous metastatic disease. Gibson Wagner MD Capliliam VTE Risk Assessment Caprini VTE Risk Assessment: Mod/High Risk (score >= 2) Caprini Risk Assessment Model Point Value = 1 Point Value = 2 Point Value = 3 Point Value = 5 Age 41-60 Minor surgery BMI > 25 kg/m2 Swollen legs Varicose veins or History of unexplained or recurrent spontaneous Oral contraceptives or hormone replacement Sepsis (< 1 month) Serious lung disease, including pneumonia (< 1 month) Abnormal pulmonary function Acute myocardial infarction Congestive heart failure (< 1 month) History of inflammatory bowel disease Medical patient at bed rest Age 61-74 Arthroscopic surgery Major open surgery (> 45 min) Laparoscopic surgery (> 45 min) Malignancy Confined to bed (> 72 hours) Immobilizing plaster cast Central venous access Age >= 75 History of VTE Family history of VTE Factor V Leiden Prothrombin [id number] Lupus anticoagulant Anticardiolipin antibodies Elevated serum homocysteine Heparin-induced thrombocytopenia Other congenital or acquired thrombophilia Stroke (< 1 month) Elective arthroplasty Hip, pelvis, or leg fracture Acute spinal cord injury (< 1 month) Prophylaxis Regimen Total Risk Factor Score Risk Level Prophylaxis Regimen 0-1 Low Early ambulation 2 Moderate Order ONE of the following: *Sequential Compression Device (SCD) *Heparin 5000 units SQ BID 3-4 Higher Order ONE of the following medications: *Heparin 5000 units SQ TID *Enoxaparin/Lovenox 40 mg SQ daily (WT < 150 kg, CrCl > 30 mL/min) *Enoxaparin/Lovenox 30 mg SQ daily (WT < 150 kg, CrCl > 10-29 mL/min) *Enoxaparin/Lovenox 30 mg SQ BID (WT < 150 kg, CrCl > 30 mL/min) AND/OR *Sequential Compression Device (SCD) 5 or more Highest Order ONE of the following medications: *Heparin 5000 units SQ TID (Preferred with Epidurals) *Enoxaparin/Lovenox 40 mg SQ daily (WT < 150 kg, CrCl > 30 mL/min) *Enoxaparin/Lovenox 30 mg SQ daily (WT < 150 kg, CrCl > 10-29 mL/min) *Enoxaparin/Lovenox 30 mg SQ BID (WT < 150 kg, CrCl > 30 mL/min) AND *Sequential Compression Device (SCD) Assessment and Plan Assessment and Plan Assessment This is a 57-year-old male with presumed urosepsis, with hypotension altered mental status with recurrent frequent falls. Patient recently admitted with acute on chronic subarachnoid hemorrhage. CT shows subacute on chronic extra- axial collections of blood. Neurosurgery has been consulted. Admit to ICU. Plan by systems: Neurologic: Encephalopathy Anxiety disorder Depression Neuro checks per ICU protocol CT brain-Subtle increased density in the extra-axial right frontal mid to low convexities which may reflect subacute to chronic extra-axial blood products. Moderate diffuse stable volume loss and periventricular small vessel ischemic white matter demyelination out of proportion to age. Neurosurgery consulted- I discussed with Dr. Cabrera , neurosurgeon, who reviewed imaging and assessed patient, no surgical intervention required at this time Avoid sedatives Will hold escitalopram 10 mg/day, Haldol PRN, Ativan PRN home medications Respiratory: Maintain O2 sat greater than 92%. Provide O2 14 L/min nasal cannula Duo nebs every 4 hours as needed Cardiovascular: Chronic systolic heart failure CAD Hypertension Obtain BNP Trend troponin level Maintain MAP greater than 65 Hold carvedilol 12.5 twice daily, and Lasix 40 mg/day ( home medications) in the setting of hypotension Patient denies chest pain at this time Renal: Presumed urosepsis BPH Acute on chronic kidney disease Prostate cancer with metastasis Remote history of testicular cancer Bilateral nephrostomy tubes Hold Tamulosin in the setting of hypotension Last antibiotics fluconazole and Ceftin 10 day course 10/15/2017 for UTI -- Strict I/Os FEN/GI: Nausea Dehydration Heart healthy diet Patient normally takes omeprazole twice daily, continue PPI Received 2 L normal saline IV bolus in the ED Normal saline 84 cc/hour Creatinine 3.49, continue to monitor Alkaline phosphatase 170, no pain on palpation-consider gallbladder ultrasound Heme/ID: Leukocytosis Follow-up urine and blood cultures Trend lactate Patient received Zosyn in the ED ,continue every 6 hours Monitor CBC Obtain INR Endocrine: Glucose monitoring per ICU protocol -- SSI Prophylaxis: GI Prophylaxis Protonix DVT Prophylaxis -- SCDs Hold pharmacological DVT prophylaxis at this time. Lines: Peripheral IVs 2. Central line if indicated Dispo: my billing statement This patient remains critically ill with one or more organ systems which are or may become a threat to life. I have spent in excess of 45 minutes discontinuously in the care and management of this patient. This time is exclusive of procedures, and includes, but is not limited to, evaluation of the patient, review of the medical record, discussions with family, consultants, nursing staff, or respiratory therapy, and documentation in the medical record. Code Status Full Discussed Condition With Dr. Brenner, patient's mother at bedside. Patient is registered with [facility] hospice secondary to multiple medical comorbidities. Upon inquiry patient requests to remain full code and all aggressive measures to be instituted. Previously seen by palliative care Ms. Ayala. Ana Boss MD November 17, 2017 15:17
[2017-11-17] MEDS: SODIUM CHLOR 0.9% 1000 ML INJ 1,000 ML IV SCH ×2 (17:05→23:05)
--- NOTE | 2017-11-17 17:57 | MB ---
cc: Kurt FRANKLIN Jorge L DATE: 11/17/2017 CHIEF COMPLAINT: Falls. HISTORY OF PRESENT ILLNESS: This is a 57-year-old male patient with stage IV prostatic cancer who presents to the ER with recurrent falls. The patient reports he has fallen 3 or 4 times in the past week. He has hit his head, but denies any loss of consciousness. The patient also gives complaints of pain of his neck and pain between the shoulder blades. He presented to the ER for evaluation. He was previously admitted on 10/17 for apparent subarachnoid hemorrhage and altered mental status. He left against medical advice. The patient, as stated above, denies any loss of consciousness. PAST MEDICAL HISTORY: Significant for hypertension, hyperlipidemia, congestive heart failure, coronary artery disease, anxiety disorder, depression, stage IV prostate cancer with bony metastasis, previous testicular cancer. The patient is currently registered with home hospice. PAST SURGICAL HISTORY: Reveals various cardiac stents. He has bilateral nephrostomy tubes ALLERGIES: GLYBURIDE, AMLODIPINE, ATORVASTATIN, METFORMIN, PRAVASTATIN, SIMVASTATIN. MEDICATIONS: 1. Sucralfate 2. Haloperidol. 3. Senna Plus 4. Prochlorperazine. 5. Omeprazole 6. Escitalopram 7. Coreg 8. Gabapentin, 9. Flomax. 10. Lorazepam. 11. Furosemide 12. Hydromorphone. REVIEW OF SYSTEMS: As pertain to the above history. PHYSICAL EXAMINATION: VITAL SIGNS: Blood pressure of 93/51, pulse of 70, respirations 16, pulse oximetry of 98 and temperature of 98. GENERAL: Shows a well-developed, nourished male, in no acute distress. HEENT: Unremarkable. NECK: Supple with mild pain. Carotids are present bilaterally. CHEST: Symmetrical. LUNGS: Clear. HEART: Shows a regular rhythm. Normal heart sounds. ABDOMEN: Soft and nontender. There are 2 nephrostomy tubes, left and right. EXTREMITIES: Clear. NEUROLOGIC: The patient is alert and awake. Speech is fluent. Follows commands well. He is oriented only to person. Cranial nerves 2-12 are intact. Motor exam is 5+/5. Sensory exam is intact to touch. Deep tendon reflexes are trace and 1+ in the upper extremities. IMAGING STUDIES: Review of the CT scan of the brain shows evidence of extraaxial/subdural fluid in the frontal area which appears to be chronic in nature with possibly some subacute component. IMPRESSION: Possible subdural hematoma/hygroma. No intervention is needed at the present time. PLAN: Would recommend neurological observation and evaluation by physical therapy for ambulation. Oncology consult. Pain control Kurt REA/ , 04:26 PM , 05:56 PM MTDD
[2017-11-17] MEDS: INSULIN ASPART SUPPLEMENTAL SCALE SQ SCH ×2 (18:04→20:52)
[2017-11-17 18:38] LABS: INTERNATIONAL NORMALIZED RATIO 1.2 RATIO
[2017-11-17] MEDS: PIPERACIL-TAZO 3.375 GM PREMIX 50 ML IV SCH (19:56)
[2017-11-17] MEDS: SODIUM CHLORIDE 0.9% FLUSH 10 ML FLUSH IV FLUSH SCH (20:00)
[2017-11-17] MEDS: DOCUSATE SODIUM 50 MG/SENNA 8.6 MG TAB PO SCH (20:00)
--- NOTE | 2017-11-17 20:46 | MB ---
cc: Gregor Ram Vincent G DO DATE: 11/17/2017 REASON FOR CONSULTATION: Elevated troponin. HISTORY OF PRESENT ILLNESS: Morris Bravo is a pleasant 57-year-old male who presented to [facility] Emergency Room due to recurrent falls. Overall, the patient is not the best historian and it is difficult to get answers from exactly what happened. Apparently, he has had a lot of falls the past few days at home and is complaining of right shoulder pain. He does not think that he has lost consciousness with any of these falls. He is somewhat disoriented and unsure exactly why he is here. According to the ER records, the patient's does not feel that she can take care of him at home anymore. On arrival, blood work was done and he was found to have a troponin of 1.52 and so I was called by the ER team. In seeing him, he is currently hemodynamically stable and denies chest pain or shortness of breath. PAST MEDICAL HISTORY: 1. Coronary artery disease. 2. Congestive heart failure with ischemic cardiomyopathy. 3. Diabetes mellitus. 4. Hypertension. 5. Osteomyelitis of the left foot. 6. Stage IV metastatic prostate cancer. PAST SURGICAL HISTORY: 1. Cardiac catheterization (05/12/2008) with stenting of the LAD with a Cypher stent (3.5 x 18). 2. Orchiectomy (1986). 3. Left foot surgery (07/02/2016). 4. Cystoscopy with palliative partial resection of bladder mass. ALLERGIES: NORVASC, LIPITOR, GLYBURIDE, METFORMIN, PRAVASTATIN, SIMVASTATIN. MEDICATIONS: 1. DuoNeb every 4 hours as needed for shortness of breath. 2. Flomax 0.4 mg every night. 3. Coreg 12.5 mg b.i.d. 4. Hydromorphone 4 mg every 4 hours as needed for pain. 5. Hydromorphone 6 mg every 4 hours as needed for pain. 6. Gabapentin 300 mg b.i.d. 7. Lexapro 10 mg daily. 8. Haloperidol 1 mg b.i.d. 9. Ativan 2 mg every 2 hours as needed for anxiety. 10. Lasix 40 mg daily. 11. Prochlorperazine 10 mg every 4 hours as needed for nausea or vomiting. 12. Sucralfate 1 gram t.i.d. 13. Omeprazole 20 mg b.i.d. 14. NovoLog sliding scale. 15. Lantus 15 units every night. FAMILY HISTORY: Unable to obtain at this time due to patient's current disorientation. SOCIAL HISTORY: Denies alcohol, tobacco or drug abuse. REVIEW OF SYSTEMS: Fourteen systems were reviewed including osteopathic. Pertinent positives and negatives as above, otherwise negative. PHYSICAL EXAMINATION: VITAL SIGNS: Temperature 98.0, heart rate 70, blood pressure 99/54, respirations 16, pulse oximetry 97% on 2 liters. GENERAL: The patient appears well, in no acute distress, alert and awake HEENT: Extraocular muscles intact. Mucous membranes moist. NECK: Supple. No JVD at 45 degrees. No carotid bruits heard bilaterally. Carotid upstroke is brisk in nature. HEART: Regular rate and rhythm. Positive first and second heart sounds with no noted murmurs, gallops or rubs. LUNGS: Clear to auscultation bilaterally. ABDOMEN: Soft, nontender, nondistended. No organomegaly noted. EXTREMITIES: Show no clubbing, cyanosis or edema. Femoral and distal pulses are intact bilaterally. NEUROLOGIC: No focal deficits noted. SKIN: Warm, dry and intact. OSTEOPATHIC: No kyphoscoliosis, lordosis or paraspinal tender points. LABORATORY DATA: Hemoglobin 10.2, hematocrit 32.7, platelets 386. Potassium 5.5, BUN 45, creatinine 3.49, troponin 1.52. CARDIOLOGY STUDIES: Electrocardiogram (11/17/2017 at 11:24): Sinus rhythm, LVH with secondary ST-T wave changes. No change from previous. ASSESSMENT: 1. Non ST elevation myocardial infarction, possible type 2. 1. Encephalopathy. 2. History of coronary artery disease. 3. Presumed urosepsis. 4. Acute on chronic kidney disease. 5. History of prostate cancer stage IV with metastasis. 6. Multiple recent falls. 7. CT of the head showing subacute to chronic extraaxial blood products. RECOMMENDATIONS: 1. Mr. Bravo presented with multiple falls and he appears to have possible subacute hemorrhage on CT of his head. At this time, I would not recommend placing him on heparin therapy. 2. Case was discussed with neurosurgery from the ER standpoint and they agreed at that time do not place him on heparin therapy. 3. He will be treated medically, as he is not a candidate for further revascularization due to subacute hemorrhage within the brain, as well as his overall do not resuscitate status with his metastatic prostate cancer. At this time, he has had no chest pain and I believe that the troponin is most likely type 2 due to his overall illness, acute kidney injury and hypotension. 4. We will check a 2-Dimensional echo to look at his overall left ventricular function, cardiac structure and possible valvulopathies. 5. His beta maria therapy will be held for now due to his overall hypotension, but this can be reassessed before discharge. 6. As he is on hospice. I would get them involved in the case. 7. He will be admitted to the critical care team. 8. Further recommendations will be made based on the hospital course. Thank you for allowing me to see Morris Bravo. If there are any questions, please do not hesitate to call. DO MARTI Simms/ , 08:08 PM , 08:45 PM
[2017-11-18] VITALS (12 sets, daily range): BP systolic 95–153; BP diastolic 52–77; PULSE 62–70; RESP 12–19; TEMP 97.2–98.8; O2SAT 93–100
[2017-11-18 00:36] LABS: TROPONIN I 0.95 NG/ML (0.02-0.05)
[2017-11-18] MEDS: PIPERACIL-TAZO 3.375 GM PREMIX 50 ML IV SCH ×4 (03:10→20:26)
[2017-11-18] MEDS: CHLORHEXIDINE GLUCONATE 2 % 1 PACK (2 CLOTHS) TOP SCH (03:10)
[2017-11-18 06:37] LABS: ALBUMIN 1.9 GM/DL (3.4-5.0); ALKALINE PHOSPHATASE 173 U/L (45-117); ALT (GPT) 9 U/L (12-78); AST (GOT) 24 U/L (15-37); BICARBONATE 23.4 MEQ/L (21.0-32.0); BLOOD UREA NITROGEN 43 MG/DL (7-18); CALCIUM 7.8 MG/DL (8.5-10.1); CHLORIDE 103 MEQ/L (98-107); CREATININE 2.72 MG/DL (0.60-1.30); GLOMERULAR FILTRATION RATE 24 ML/MIN (>89); GLUCOSE,RANDOM 147 MG/DL (74-106); MAGNESIUM 1.9 MG/DL (1.5-2.5); PHOSPHORUS 3.7 MG/DL (2.5-4.9); SODIUM (NA) 138 MEQ/L (136-145); TOTAL BILIRUBIN ADULT 0.4 MG/DL (0.2-1.0); TOTAL PROTEIN 6.9 GM/DL (6.4-8.2)
[2017-11-18 07:17] LABS: INTERNATIONAL NORMALIZED RATIO 1.1 RATIO; PROTHROMBIN TIME - PATIENT 11.6 SEC (9.8-11.6)
[2017-11-18] MEDS: INSULIN ASPART SUPPLEMENTAL SCALE SQ SCH ×4 (08:00→20:26)
[2017-11-18] MEDS: DOCUSATE SODIUM 50 MG/SENNA 8.6 MG TAB PO SCH ×2 (09:00→20:26)
[2017-11-18] MEDS: SODIUM CHLOR 0.9% 1000 ML INJ 1,000 ML IV SCH ×3 (09:10→20:26)
[2017-11-18] MEDS: SODIUM CHLORIDE 0.9% FLUSH 10 ML FLUSH IV FLUSH SCH ×2 (09:11→20:26)
[2017-11-18] MEDS: PANTOPRAZOLE SOD 40 MG DELAYED RELEASE TAB PO SCH (09:11)
--- NOTE | 2017-11-18 11:46 | PD.CARD.PN ---
Subjective Subjective Remarks No events overnight Feels good, no complaints No chest pain Objective Medications Current Medications Medications (Trade) Dose Ordered Sig/Jerzy Route Start Time Stop Time Status Last Admin Sodium Chloride 1,000 ml @ 150 mls/hr Q6H40M IV 11/17/17 14:41 11/18/17 09:10 (NS Flush) 2 ml UNSCH PRN IV FLUSH 11/17/17 14:45 (NS Flush) 2 ml BID IV FLUSH 11/17/17 21:00 11/18/17 09:11 (Tylenol) 650 mg Q6H PRN PO 11/17/17 14:45 (Protonix) 40 mg DAILY PO 11/18/17 09:00 11/18/17 09:11 (Duoneb Neb) 1 ampule Q4HR NEB PRN INH 11/17/17 14:45 ([facility] [place] Nursing Information) 1 Q361D XX 11/17/17 14:45 (Chlorhexidine 2% Cloth) 3 pack Taper DAILY@04 TOP 11/18/17 04:00 11/14/18 03:59 11/18/17 03:10 (Chlorhexidine 2% Cloth) 3 pack UNSCH PRN TOP 11/17/17 14:45 (Nichole-Colace) 1 tab BID PO 11/17/17 21:00 (Milk Of Magnesia Liq) 30 ml Q12H PRN PO 11/17/17 14:45 (Senokot) 17.2 mg Q12H PRN PO 11/17/17 14:45 (Dulcolax Supp) 10 mg DAILY PRN RECTAL 11/17/17 14:45 (Lactulose Liq) 30 ml DAILY PRN PO 11/17/17 14:45 (D50w (Vial) Inj) 50 ml UNSCH PRN IV PUSH 11/17/17 15:00 (Glucagon Inj) 1 mg UNSCH PRN OTHER 11/17/17 15:00 (NovoLOG SUPPLEMENTAL SCALE) 1 ACHS SLIDING SCALE SQ 11/17/17 17:00 11/17/17 20:52 (Zofran Odt) 4 mg Q6H PRN SL 11/17/17 15:00 Piperacillin Sod/ Tazobactam Sod 50 ml @ 100 mls/hr Q6H IV 11/17/17 20:00 11/18/17 09:10 Vital Signs / I&O Vital Signs Date Time Temp Pulse Resp B/P (MAP) Pulse Ox O2 Delivery O2 Flow Rate FiO2 11/18/17 10:00 67 11/18/17 08:00 67 11/18/17 08:00 98.6 67 19 117/64 (81) 97 11/18/17 07:00 95 Nasal Cannula 3.00 11/18/17 06:00 69 11/18/17 04:00 98.4 68 19 106/55 (72) 93 11/18/17 04:00 68 11/18/17 02:00 66 11/18/17 00:00 98.0 62 18 95/52 (66) 94 11/18/17 00:00 62 11/17/17 22:00 63 11/17/17 20:00 98.2 61 13 99/54 (69) 94 11/17/17 20:00 62 11/17/17 19:08 Nasal Cannula 2.00 11/17/17 19:00 61 11/17/17 19:00 94 Nasal Cannula 3.00 11/17/17 16:45 92 Nasal Cannula 3.00 11/17/17 16:15 111/61 (78) 11/17/17 15:54 11/17/17 15:45 80 16 99/54 (69) 97 Nasal Cannula 2.00 11/17/17 14:00 70 16 93/51 (65) 98 Nasal Cannula 3.00 11/17/17 13:00 72 16 87/50 (62) 97 Nasal Cannula 3.00 11/17/17 12:00 74 16 83/50 (61) 95 Nasal Cannula 3.00 I/O 11/17/17 11/17/17 11/17/17 11/18/17 11/18/17 11/18/17 07:00 15:00 23:00 07:00 15:00 23:00 Intake Total 1000 ml 50 ml 1050 ml Output Total 125 ml 452 ml Balance 1000 ml -75 ml 598 ml Intake IV Total 1000 ml 50 ml 1050 ml Output Stool Total 2 ml Drainage Total 125 ml 450 ml Physical Exam GENERAL: NAD, AAOx3 SKIN: Warm and dry. HEAD: Atraumatic. Normocephalic. EYES: Pupils equal and round. No scleral icterus. No injection or drainage. ENT: No nasal bleeding or discharge. Mucous membranes pink and moist. NECK: Trachea midline. No JVD. CARDIOVASCULAR: Regular rate and rhythm. RESPIRATORY: No accessory muscle use. Clear to auscultation. Breath sounds equal bilaterally. GASTROINTESTINAL: Abdomen soft, non-tender, nondistended. Hepatic and splenic margins not palpable. MUSCULOSKELETAL: Extremities without clubbing, cyanosis, or edema. No obvious deformities. NEUROLOGICAL: Awake and alert. No obvious cranial nerve deficits. Motor grossly within normal limits. Five out of 5 muscle strength in the arms and legs. Normal speech. PSYCHIATRIC: Appropriate mood and affect; insight and judgment normal. Laboratory Laboratory Tests Test 11/17/17 12:34 11/17/17 16:30 11/17/17 17:21 11/17/17 23:37 Urine Color YELLOW Urine Turbidity TURBID Urine pH 5.0 Urine Specific [place] 1.020 Urine Protein 100 mg/dL Urine Glucose (UA) 70 mg/dL Urine Ketones TRACE mg/dL Urine Occult Blood LARGE Urine Nitrite NEG Urine Bilirubin NEGATIVE Urine Urobilinogen 2.0 MG/DL Urine Leukocyte Esterase MOD Urine RBC /hpf Urine WBC /hpf Urine WBC Clumps RARE Urine Bacteria MANY /hpf Urine Hyaline Casts 39 /lpf Microscopic Urinalysis Comment CATH-CULTURE IND Nasal Screen MRSA (PCR) MRSA NOT DETECTED Prothrombin Time 12.0 SEC Prothromb Time International Ratio 1.2 RATIO Troponin I 1.07 NG/ML 0.95 NG/ML Total Creatine Kinase 345 U/L Creatine Kinase MB 11.5 NG/ML Creatine Kinase MB % 3.3 % Test 11/18/17 04:50 Prothrombin Time 11.6 SEC Prothromb Time International Ratio 1.1 RATIO Activated Partial Thromboplast Time 32.7 SEC Blood Urea Nitrogen 43 MG/DL Creatinine 2.72 MG/DL Random Glucose 147 MG/DL Total Protein 6.9 GM/DL Albumin 1.9 GM/DL Calcium Level 7.8 MG/DL Phosphorus Level 3.7 MG/DL Magnesium Level 1.9 MG/DL Alkaline Phosphatase 173 U/L Aspartate Amino Transf (AST/SGOT) 24 U/L Alanine Aminotransferase (ALT/SGPT) 9 U/L Total Bilirubin 0.4 MG/DL Sodium Level 138 MEQ/L Potassium Level 3.7 MEQ/L Chloride Level 103 MEQ/L Carbon Dioxide Level 23.4 MEQ/L Anion Gap 12 MEQ/L Estimat Glomerular Filtration Rate 24 ML/MIN Lactic Acid Level 1.1 mmol/L B-Type Natriuretic Peptide 333 PG/ML Assessment and Plan Problem List: (1) Acute on chronic renal failure ICD Codes: N17.9 - Acute kidney failure, unspecified; N18.9 - Chronic kidney disease, unspecified Status: Acute (2) SAH (subarachnoid hemorrhage) ICD Codes: I60.9 - Nontraumatic subarachnoid hemorrhage, unspecified Status: Acute (3) Debility ICD Codes: R53.81 - Other malaise (4) UTI (urinary tract infection) ICD Codes: N39.0 - Urinary tract infection, site not specified Status: Acute (5) Non-ST elevation [place] (NSTEMI) ICD Codes: I21.4 - Non-ST elevation (NSTEMI) myocardial infarction Status: Acute (6) Acute renal failure ICD Codes: N17.9 - Acute kidney failure, unspecified Status: Acute (7) Prostate cancer metastatic to bone ICD Codes: C61 - Malignant neoplasm of prostate; C79.51 - Secondary malignant neoplasm of bone Status: Chronic (8) MIRYAM (acute kidney injury) ICD Codes: N17.9 - Acute kidney failure, unspecified (9) Chronic systolic heart failure ICD Codes: I50.22 - Chronic systolic (congestive) heart failure Status: Chronic Assessment and Plan 1) Multiple falls Deconditioning/UTI? 2) Subacute hemorrhage on CT of the head 3) Elevated troponins Denies chest pain Downtrending Possible type 2 Not a candidate for invasive, con't medical management 4) 2D echo pending 5) Hospice consult as he's currently under their care Gregor Ram DO November 18, 2017 11:45
[2017-11-18] MEDS: ACETAMINOPHEN 325 MG TAB PO PRN ×2 (16:53→23:09)
[2017-11-18 17:17] LABS: AUTOMATED NEUTROPHIL # 15.3 TH/MM3 (1.8-7.7); BASOPHIL % 0.2 % (0.0-2.0); EOSINOPHIL # 0.1 TH/MM3 (0-0.4); EOSINOPHIL % 0.4 % (0.0-4.0); HEMATOCRIT 27.6 % (39.0-51.0); HEMOGLOBIN 8.8 GM/DL (13.0-17.0); LYMPHOCYTE # 0.5 TH/MM3 (1.0-4.8); MEAN CELL VOLUME 77.4 FL (80.0-100.0); MEAN CORPUSCULAR HEMOGLOBIN 24.6 PG (27.0-34.0); MEAN CORPUSCULAR HGB CONC 31.7 % (32.0-36.0); MEAN PLATELET VOLUME 7.6 FL (7.0-11.0); MONO % 4.2 % (0.0-8.0); MONOCYTE # 0.7 TH/MM3 (0-0.9); NEUT % 92.2 % (16.0-70.0); PLATELET COUNT 285 TH/MM3 (150-450); RED BLOOD COUNT 3.57 MIL/MM3 (4.50-5.90); RED CELL DISTRIBUTION WIDTH 16.5 % (11.6-17.2); WHITE BLOOD COUNT 16.6 TH/MM3 (4.0-11.0)
--- NOTE | 2017-11-18 20:53 | HHI.CCPN ---
Subjective Remarks/Hospital Course Hospital Course: This is a 57-year-old male that presented to the ED with complaints of recurrent falls and complaints of right shoulder pain. The patient's medical history significant for hypertension, hyperlipidemia, congestive heart failure, coronary artery disease, anxiety disorder,depression, stage IV prostate cancer with bone metastasis, previous testicular cancer, status post treatment. The patient currently is registered with [facility] hospice. He is currently fairly disoriented in the ER, does not really know why he is here. According to the patient's , there is difficulty caring for him at home. Review of medical records Echo 06/16/17 showed an EF30-35%, patient previously followed by Dr. Ram. The patient was recently admitted 10/06/17 for subarachnoid hemorrhage and altered mental status, UTI and encephalopathy and left AMA. Imaging and laboratory studies revealed dehydration with an elevated creatinine of 3.49 and possible urosepsis, culture pending. Patient was bolused with 1 L of fluid and received Zosyn. upon initial admission the patient had systolic blood pressure 80-90, critical care medicine was consulted. Subjective: 11/18: clinically stable. wants to go home. tolerating diet. stable to transfer out of ICU. ROS otherwise negative. patient subjectively feels better. Objective Vital Signs Date Time Temp Pulse Resp B/P (MAP) Pulse Ox O2 Delivery O2 Flow Rate FiO2 11/18/17 16:00 98.8 70 12 104/58 (73) 100 11/18/17 14:38 Nasal Cannula 2.00 Intake and Output 11/18/17 11/18/17 11/19/17 08:00 16:00 00:00 Intake Total 50 ml 700 ml Output Total 452 ml 900 ml Balance -402 ml -200 ml Result Diagram: 11/18/17 1602 11/18/17 0450 Imaging Last Impressions Head CT 11/17/17 1106 Signed Impressions: Service Date/Time: Friday, November 17, 2017 13:09 - CONCLUSION: 1. Subtle increased density in the extra-axial right frontal mid to low convexities which may reflect subacute to chronic extra-axial blood products. 2. Moderate diffuse stable volume loss and periventricular small vessel ischemic white matter demyelination out of proportion to age. Gibson Wagner MD Chest X-Ray 11/17/17 1106 Signed Impressions: Service Date/Time: Friday, November 17, 2017 11:32 - CONCLUSION: 1. Minimal left lung base atelectasis. 2. Diffuse osseous metastatic disease. Gibson Wagner MD Objective Remarks gen: middle-aged male, lying in bed, no acute distress. heent: nc. at. perrl. mmm. neck: no jvd. trachea midline. chest: equal chest rise. nc o2 cv: normal rate, regular rhythm. sinus. abd: soft, nontender, nondistended. no guarding. extr: no peripheral edema neuro: baseline neuro exam. follows commands. no focal deficits. A/P Assessment and Plan Assessment This is a 57-year-old male with presumed urosepsis, with hypotension altered mental status with recurrent frequent falls. Patient recently admitted with acute on chronic subarachnoid hemorrhage. CT shows subacute on chronic extra- axial collections of blood. Neurosurgery has been consulted. clinically stable. transfer out of ICU. Plan by systems: Neurologic: Encephalopathy- improved. Anxiety disorder Depression Neuro checks per ICU protocol CT brain-Subtle increased density in the extra-axial right frontal mid to low convexities which may reflect subacute to chronic extra-axial blood products. Moderate diffuse stable volume loss and periventricular small vessel ischemic white matter demyelination out of proportion to age. Avoid sedatives Will hold escitalopram 10 mg/day, Haldol PRN, Ativan PRN home medications Respiratory: Maintain O2 sat greater than 92%. Provide O2 14 L/min nasal cannula Duo nebs every 4 hours as needed Cardiovascular: Chronic systolic heart failure CAD Hypertension Obtain BNP Trend troponin level Maintain MAP greater than 65 Hold carvedilol 12.5 twice daily, and Lasix 40 mg/day ( home medications) in the setting of hypotension Patient denies chest pain at this time Renal: Presumed urosepsis BPH Acute on chronic kidney disease Prostate cancer with metastasis Remote history of testicular cancer Bilateral nephrostomy tubes Hold Tamulosin in the setting of hypotension Last antibiotics fluconazole and Ceftin 10 day course 10/15/2017 for UTI -- Strict I/Os FEN/GI: Nausea Dehydration Heart healthy diet Patient normally takes omeprazole twice daily, continue PPI Received 2 L normal saline IV bolus in the ED Normal saline 84 cc/hour Creatinine 3.49, continue to monitor Alkaline phosphatase 170, no pain on palpation Heme/ID: Leukocytosis Follow-up urine and blood cultures Trend lactate Patient received Zosyn in the ED ,continue every 6 hours Monitor CBC Obtain INR Endocrine: Glucose monitoring per ICU protocol -- SSI Prophylaxis: GI Prophylaxis Protonix DVT Prophylaxis -- SCDs Hold pharmacological DVT prophylaxis at this time. Lines: Peripheral IVs 2. Central line if indicated Dispo: transfer to floor. consult hospitalist service. Jordy Schmidt MD November 18, 2017 20:53
--- NOTE | 2017-11-18 21:38 | EKG ---
Date Performed: 11/17/2017 Time Performed: 11:24:34 PTAGE: 57 years EKG: Sinus rhythm LEFT VENTRICULAR HYPERTROPHY AND ST-T CHANGE ABNORMAL ECG NO PREVIOUS TRACING DOCTOR: Juancho Hanna Interpretating Date/Time 11/18/2017 21:37:38
[2017-11-18] MEDS: ONDANSETRON ODT 4 MG TAB SL PRN (23:09)
[2017-11-19] VITALS (9 sets, daily range): BP systolic 109–138; BP diastolic 64–75; PULSE 65–89; RESP 18–20; TEMP 97.7–98; O2SAT 90–97
[2017-11-19] MEDS: SODIUM CHLOR 0.9% 1000 ML INJ 1,000 ML IV SCH ×4 (00:39→23:14)
[2017-11-19] MEDS: CHLORHEXIDINE GLUCONATE 2 % 1 PACK (2 CLOTHS) TOP SCH (00:40)
[2017-11-19] MEDS: PIPERACIL-TAZO 3.375 GM PREMIX 50 ML IV SCH ×4 (01:11→21:21)
[2017-11-19] MEDS: ACETAMINOPHEN 325 MG TAB PO PRN (05:30)
[2017-11-19] MEDS: INSULIN ASPART SUPPLEMENTAL SCALE SQ SCH ×4 (08:00→21:00)
[2017-11-19] MEDS: PANTOPRAZOLE SOD 40 MG DELAYED RELEASE TAB PO SCH (09:40)
[2017-11-19] MEDS: DOCUSATE SODIUM 50 MG/SENNA 8.6 MG TAB PO SCH ×2 (09:40→21:00)
[2017-11-19] MEDS: SODIUM CHLORIDE 0.9% FLUSH 10 ML FLUSH IV FLUSH SCH ×2 (09:41→21:00)
--- NOTE | 2017-11-19 09:42 | HHI.PR ---
Subjective Remarks Says he had recent diarrhea and bloody stools. No stools for 3 days now. He has no abdominal pain. Has intermittent chest pain . No n/v/. No fever or chills. Objective Vitals Vital Signs Date Time Temp Pulse Resp B/P (MAP) Pulse Ox O2 Delivery O2 Flow Rate FiO2 11/19/17 08:00 97.7 65 20 127/68 (87) 96 11/19/17 07:45 Nasal Cannula 2.00 11/19/17 07:24 20 11/19/17 04:00 Nasal Cannula 2.00 11/19/17 04:00 73 11/19/17 04:00 97.7 67 18 138/75 (96) 97 11/19/17 00:00 67 11/18/17 23:45 Nasal Cannula 2.00 11/18/17 23:44 62 11/18/17 22:46 97.2 66 17 134/71 (92) 99 11/18/17 22:00 64 11/18/17 20:00 97.7 64 12 101/57 (72) 98 11/18/17 20:00 64 11/18/17 19:00 99 Nasal Cannula 2.00 11/18/17 16:00 98.8 70 12 104/58 (73) 100 11/18/17 16:00 70 11/18/17 14:38 Nasal Cannula 2.00 11/18/17 12:00 98.5 69 16 153/77 (102) 94 11/18/17 12:00 69 11/18/17 10:00 67 I/O 11/18/17 11/18/17 11/18/17 11/19/17 11/19/17 11/19/17 07:00 15:00 23:00 07:00 15:00 23:00 Intake Total 1050 ml 1800 ml 1420 ml Output Total 452 ml 900 ml 350 ml Balance 598 ml 900 ml 1070 ml Intake Oral 700 ml IV Total 1050 ml 1100 ml 1420 ml Output Urine Total 450 ml 350 ml Stool Total 2 ml Drainage Total 450 ml 450 ml # Bowel Movements 1 Result Diagram: 11/18/17 1602 11/18/17 0450 Imaging Last Impressions Head CT 11/17/17 1106 Signed Impressions: Service Date/Time: Friday, November 17, 2017 13:09 - CONCLUSION: 1. Subtle increased density in the extra-axial right frontal mid to low convexities which may reflect subacute to chronic extra-axial blood products. 2. Moderate diffuse stable volume loss and periventricular small vessel ischemic white matter demyelination out of proportion to age. Gibson Wagner MD Chest X-Ray 11/17/17 1106 Signed Impressions: Service Date/Time: Friday, November 17, 2017 11:32 - CONCLUSION: 1. Minimal left lung base atelectasis. 2. Diffuse osseous metastatic disease. Gibson Wagner MD Objective Remarks GENERAL: CARDIOVASCULAR: Regular rate and rhythm. RESPIRATORY: No accessory muscle use. Clear to auscultation. Breath sounds equal bilaterally. GASTROINTESTINAL: Abdomen soft, non-tender, nondistended. Hepatic and splenic margins not palpable. MUSCULOSKELETAL: Extremities without clubbing, cyanosis, or edema. No obvious deformities. NEUROLOGICAL: Awake and alert. No obvious cranial nerve deficits. Motor grossly within normal limits. Five out of 5 muscle strength in the arms and legs. Normal speech. PSYCHIATRIC: Appropriate mood and affect; insight and judgment normal. A/P Problem List: (1) Acute metabolic encephalopathy ICD Code: G93.41 - Metabolic encephalopathy Status: Resolved (2) UTI (urinary tract infection) ICD Code: N39.0 - Urinary tract infection, site not specified Status: Acute (3) Delirium due to another medical condition ICD Code: F05 - Delirium due to known physiological condition Status: Acute (4) Debility ICD Code: R53.81 - Other malaise (5) Acute on chronic renal failure ICD Code: N17.9 - Acute kidney failure, unspecified; N18.9 - Chronic kidney disease, unspecified Status: Acute (6) SAH (subarachnoid hemorrhage) ICD Code: I60.9 - Nontraumatic subarachnoid hemorrhage, unspecified Status: Acute Assessment and Plan This is a 57-year-old male with presumed urosepsis, with hypotension altered mental status with recurrent frequent falls. Patient recently admitted with acute on chronic subarachnoid hemorrhage. CT shows subacute on chronic extra- axial collections of blood. Neurosurgery has been consulted. Plan by systems: Neurologic: Encephalopathy Anxiety disorder Depression Neuro checks per ICU protocol CT brain-Subtle increased density in the extra-axial right frontal mid to low convexities which may reflect subacute to chronic extra-axial blood products. Moderate diffuse stable volume loss and periventricular small vessel ischemic white matter demyelination out of proportion to age. Neurosurgery consulted- I discussed with Dr. Cabrera , neurosurgeon, who reviewed imaging and assessed patient, no surgical intervention required at this time Avoid sedatives Will hold escitalopram 10 mg/day, Haldol PRN, Ativan PRN home medications Respiratory: Maintain O2 sat greater than 92%. Provide O2 14 L/min nasal cannula Duo nebs every 4 hours as needed Cardiovascular: Chronic systolic heart failure CAD Hypertension Obtain BNP Trend troponin level Maintain MAP greater than 65 Hold carvedilol 12.5 twice daily, and Lasix 40 mg/day ( home medications) in the setting of hypotension Patient denies chest pain at this time Renal: Presumed urosepsis BPH Acute on chronic kidney disease Prostate cancer with metastasis Remote history of testicular cancer Bilateral nephrostomy tubes Hold Tamulosin in the setting of hypotension Last antibiotics fluconazole and Ceftin 10 day course 10/15/2017 for UTI -- Strict I/Os FEN/GI: Nausea Dehydration Heart healthy diet Patient normally takes omeprazole twice daily, continue PPI Received 2 L normal saline IV bolus in the ED Normal saline 84 cc/hour Creatinine 3.49, continue to monitor Alkaline phosphatase 170, no pain on palpation-consider gallbladder ultrasound Heme/ID: Leukocytosis Follow-up urine and blood cultures Trend lactate Patient received Zosyn in the ED ,continue every 6 hours Monitor CBC Obtain INR Endocrine: Glucose monitoring per ICU protocol -- SSI Prophylaxis: GI Prophylaxis Protonix DVT Prophylaxis -- SCDs Hold pharmacological DVT prophylaxis at this time. Lines: Peripheral IVs 2. Central line if indicated Dispo: This patient remains ill. DC when improved and cleared by consultants. Code Status Full Discussed Condition With Dr. Brenner, patient's mother. Patient is registered with [facility] hospice secondary to multiple medical comorbidities. Upon inquiry patient requests to remain full code and all aggressive measures to be instituted. Previously seen by palliative care Ms. Ayala. Spoke with hospice following Plan for GI consult as patient with bloody diarrhea. Geraldine Escobar MD November 19, 2017 09:42
[2017-11-19] MEDS: HYDROmorphone HCL 4 MG TAB PO PRN ×3 (10:27→19:44)
[2017-11-19] MEDS ORDERED: PILL SPLITTER OTHER PRN (12:30)
--- NOTE | 2017-11-19 13:52 | PD.CARD.PN ---
Subjective Subjective Remarks No events overnight Feels good, no complaints No chest pain Objective Medications Current Medications Medications (Trade) Dose Ordered Sig/Jerzy Route Start Time Stop Time Status Last Admin Sodium Chloride 1,000 ml @ 150 mls/hr Q6H40M IV 11/17/17 14:41 11/19/17 13:30 (NS Flush) 2 ml UNSCH PRN IV FLUSH 11/17/17 14:45 (NS Flush) 2 ml BID IV FLUSH 11/17/17 21:00 11/19/17 09:41 (Tylenol) 650 mg Q6H PRN PO 11/17/17 14:45 11/19/17 05:30 (Protonix) 40 mg DAILY PO 11/18/17 09:00 11/19/17 09:40 (Duoneb Neb) 1 ampule Q4HR NEB PRN INH 11/17/17 14:45 [place] [place] 1 Q361D XX 11/17/17 14:45 (Chlorhexidine 2% Cloth) 3 pack Taper DAILY@04 TOP 11/18/17 04:00 11/14/18 03:59 11/19/17 00:40 (Chlorhexidine 2% Cloth) 3 pack UNSCH PRN TOP 11/17/17 14:45 (Nichole-Colace) 1 tab BID PO 11/17/17 21:00 11/19/17 09:40 (Milk Of Magnesia Liq) 30 ml Q12H PRN PO 11/17/17 14:45 11/19/17 04:12 (Senokot) 17.2 mg Q12H PRN PO 11/17/17 14:45 (Dulcolax Supp) 10 mg DAILY PRN RECTAL 11/17/17 14:45 (Lactulose Liq) 30 ml DAILY PRN PO 11/17/17 14:45 (D50w (Vial) Inj) 50 ml UNSCH PRN IV PUSH 11/17/17 15:00 (Glucagon Inj) 1 mg UNSCH PRN OTHER 11/17/17 15:00 (NovoLOG SUPPLEMENTAL SCALE) 1 ACHS SLIDING SCALE SQ 11/17/17 17:00 11/18/17 20:26 (Zofran Odt) 4 mg Q6H PRN SL 11/17/17 15:00 11/18/17 23:09 Piperacillin Sod/ Tazobactam Sod 50 ml @ 100 mls/hr Q6H IV 11/17/17 20:00 11/19/17 09:41 (Dilaudid) 6 mg Q4HR PRN PO 11/19/17 10:00 11/19/17 10:27 (Pill Splitter) 1 ea UNSCH PRN OTHER 11/19/17 12:30 Vital Signs / I&O Vital Signs Date Time Temp Pulse Resp B/P (MAP) Pulse Ox O2 Delivery O2 Flow Rate FiO2 11/19/17 13:23 Nasal Cannula 2.00 11/19/17 12:00 70 11/19/17 12:00 98.0 73 18 109/68 (82) 93 11/19/17 11:28 16 11/19/17 08:00 75 11/19/17 08:00 97.7 65 20 127/68 (87) 96 11/19/17 07:45 Nasal Cannula 2.00 11/19/17 07:24 20 11/19/17 04:00 Nasal Cannula 2.00 11/19/17 04:00 73 11/19/17 04:00 97.7 67 18 138/75 (96) 97 11/19/17 00:00 67 11/18/17 23:45 Nasal Cannula 2.00 11/18/17 23:44 62 11/18/17 22:46 97.2 66 17 134/71 (92) 99 11/18/17 22:00 64 11/18/17 20:00 97.7 64 12 101/57 (72) 98 11/18/17 20:00 64 11/18/17 19:00 99 Nasal Cannula 2.00 11/18/17 16:00 98.8 70 12 104/58 (73) 100 11/18/17 16:00 70 11/18/17 14:38 Nasal Cannula 2.00 I/O 11/18/17 11/18/17 11/18/17 11/19/17 11/19/17 11/19/17 07:00 15:00 23:00 07:00 15:00 23:00 Intake Total 1050 ml 1800 ml 1420 ml Output Total 452 ml 900 ml 350 ml Balance 598 ml 900 ml 1070 ml Intake Oral 700 ml IV Total 1050 ml 1100 ml 1420 ml Output Urine Total 450 ml 350 ml Stool Total 2 ml Drainage Total 450 ml 450 ml # Bowel Movements 1 Physical Exam GENERAL: NAD, AAOx3 SKIN: Warm and dry. HEAD: Atraumatic. Normocephalic. EYES: Pupils equal and round. No scleral icterus. No injection or drainage. ENT: No nasal bleeding or discharge. Mucous membranes pink and moist. NECK: Trachea midline. No JVD. CARDIOVASCULAR: Regular rate and rhythm. RESPIRATORY: No accessory muscle use. Clear to auscultation. Breath sounds equal bilaterally. GASTROINTESTINAL: Abdomen soft, non-tender, nondistended. Hepatic and splenic margins not palpable. MUSCULOSKELETAL: Extremities without clubbing, cyanosis, or edema. No obvious deformities. NEUROLOGICAL: Awake and alert. No obvious cranial nerve deficits. Motor grossly within normal limits. Five out of 5 muscle strength in the arms and legs. Normal speech. PSYCHIATRIC: Appropriate mood and affect; insight and judgment normal. Laboratory Laboratory Tests Test 11/18/17 16:02 White Blood Count 16.6 TH/MM3 Red Blood Count 3.57 MIL/MM3 Hemoglobin 8.8 GM/DL Hematocrit 27.6 % Mean Corpuscular Volume 77.4 FL Mean Corpuscular Hemoglobin 24.6 PG Mean Corpuscular Hemoglobin Concent 31.7 % Red Cell Distribution Width 16.5 % Platelet Count 285 TH/MM3 Mean Platelet Volume 7.6 FL Neutrophils (%) (Auto) 92.2 % Lymphocytes (%) (Auto) 3.0 % Monocytes (%) (Auto) 4.2 % Eosinophils (%) (Auto) 0.4 % Basophils (%) (Auto) 0.2 % Neutrophils # (Auto) 15.3 TH/MM3 Lymphocytes # (Auto) 0.5 TH/MM3 Monocytes # (Auto) 0.7 TH/MM3 Eosinophils # (Auto) 0.1 TH/MM3 Basophils # (Auto) 0.0 TH/MM3 CBC Comment DIFF FINAL Differential Comment Assessment and Plan Problem List: (1) Acute on chronic renal failure ICD Codes: N17.9 - Acute kidney failure, unspecified; N18.9 - Chronic kidney disease, unspecified Status: Acute (2) SAH (subarachnoid hemorrhage) ICD Codes: I60.9 - Nontraumatic subarachnoid hemorrhage, unspecified Status: Acute (3) Debility ICD Codes: R53.81 - Other malaise (4) UTI (urinary tract infection) ICD Codes: N39.0 - Urinary tract infection, site not specified Status: Acute (5) Non-ST elevation [place] (NSTEMI) ICD Codes: I21.4 - Non-ST elevation (NSTEMI) myocardial infarction Status: Acute (6) Acute renal failure ICD Codes: N17.9 - Acute kidney failure, unspecified Status: Acute (7) Prostate cancer metastatic to bone ICD Codes: C61 - Malignant neoplasm of prostate; C79.51 - Secondary malignant neoplasm of bone Status: Chronic (8) MIRYAM (acute kidney injury) ICD Codes: N17.9 - Acute kidney failure, unspecified (9) Chronic systolic heart failure ICD Codes: I50.22 - Chronic systolic (congestive) heart failure Status: Chronic Assessment and Plan 1) Multiple falls Deconditioning/UTI? 2) Subacute hemorrhage on CT of the head 3) Elevated troponins Denies chest pain Downtrending Possible type 2 Not a candidate for invasive, con't medical management 4) 2D echo pending 5) Hospice consult as he's currently under their care Gregor Ram DO November 19, 2017 13:52
[2017-11-19] MEDS: ONDANSETRON ODT 4 MG TAB SL PRN (15:10)
--- NOTE | 2017-11-19 15:50 | PD.CONS ---
HPI History of Present Illness This is a 57 year old male with prostate ca with bone mets, CAD, CHF, who presented for recurrent falls. GI is consutled for diarrhea, hematochezia. For 1 month pt has had loose stools with bright red blood intermittently, however currently he has not had BM in 1 week. He denies abd pain but is tender on exam. Denies n/v, black tarry stool, fevers, sick contacts, recent abx use. He thinks he had a colonoscopy 1 month ago in [place] but does not know results. he had EGD 06/2017 revealing gastritis, duodenal ulcers wt path, ulcer, peptic duodenitis. he was under hospice care but currently is verbalizing aggressive goals. (Anjana Cosby) PFSH Past Medical History prostate ca stage 4 with bone mets CHF DM HTN Past Surgical History CARDIAC STENT NEPHROSTOMY TUBES testicle surgery (Anjana Cosby) Coded Allergies: glyburide (Verified Allergy, Severe, RASH, 11/17/17) amlodipine (Verified Allergy, Unknown, 11/17/17) rhabdomyolysis atorvastatin (Verified Allergy, Unknown, 11/17/17) rhabdomyolysis metformin (Verified Allergy, Unknown, Rash, 11/17/17) pravastatin (Verified Allergy, Unknown, 11/17/17) rhabdomyolysis simvastatin (Verified Allergy, Unknown, 11/17/17) rhabdomyolysis Family History noncontributory Social History denies toxic habits (Anjana Cosby) Review of Systems Constitutional: DENIES: Fever Endocrine: DENIES: Polydipsia Eyes: DENIES: Blurred vision Ears, nose, mouth, throat: DENIES: Hearing loss Respiratory: DENIES: Cough Cardiovascular: DENIES: Chest pain Gastrointestinal: COMPLAINS OF: Bloody stools, Constipation, Diarrhea, Nausea, Vomiting, DENIES: Abdominal pain, Black stools Genitourinary: DENIES: Urinary frequency Musculoskeletal: DENIES: Muscle aches Integumentary: DENIES: Abnormal pigmentation Hematologic/lymphatic: DENIES: Bruising Immunologic/allergic: DENIES: Eczema Neurologic: DENIES: Headache Psychiatric: DENIES: Confusion (Anjana Cosby) GI Exam Vitals I&O Vital Signs Date Time Temp Pulse Resp B/P (MAP) Pulse Ox O2 Delivery O2 Flow Rate FiO2 11/19/17 13:23 Nasal Cannula 2.00 11/19/17 12:00 70 11/19/17 12:00 98.0 73 18 109/68 (82) 93 11/19/17 11:28 16 11/19/17 08:00 75 11/19/17 08:00 97.7 65 20 127/68 (87) 96 11/19/17 07:45 Nasal Cannula 2.00 11/19/17 07:24 20 11/19/17 04:00 Nasal Cannula 2.00 11/19/17 04:00 73 11/19/17 04:00 97.7 67 18 138/75 (96) 97 11/19/17 00:00 67 11/18/17 23:45 Nasal Cannula 2.00 11/18/17 23:44 62 11/18/17 22:46 97.2 66 17 134/71 (92) 99 11/18/17 22:00 64 11/18/17 20:00 97.7 64 12 101/57 (72) 98 11/18/17 20:00 64 11/18/17 19:00 99 Nasal Cannula 2.00 11/18/17 16:00 98.8 70 12 104/58 (73) 100 11/18/17 16:00 70 I/O 11/18/17 11/18/17 11/18/17 11/19/17 11/19/17 11/19/17 07:00 15:00 23:00 07:00 15:00 23:00 Intake Total 1050 ml 1800 ml 1420 ml Output Total 452 ml 900 ml 350 ml Balance 598 ml 900 ml 1070 ml Intake Oral 700 ml IV Total 1050 ml 1100 ml 1420 ml Output Urine Total 450 ml 350 ml Stool Total 2 ml Drainage Total 450 ml 450 ml # Bowel Movements 1 Imaging Last Impressions Head CT 11/17/17 1106 Signed Impressions: Service Date/Time: Friday, November 17, 2017 13:09 - CONCLUSION: 1. Subtle increased density in the extra-axial right frontal mid to low convexities which may reflect subacute to chronic extra-axial blood products. 2. Moderate diffuse stable volume loss and periventricular small vessel ischemic white matter demyelination out of proportion to age. Gibson Wagner MD Chest X-Ray 11/17/17 1106 Signed Impressions: Service Date/Time: Friday, November 17, 2017 11:32 - CONCLUSION: 1. Minimal left lung base atelectasis. 2. Diffuse osseous metastatic disease. Gibson Wagner MD Laboratory Test 11/18/17 16:02 White Blood Count 16.6 TH/MM3 Red Blood Count 3.57 MIL/MM3 Hemoglobin 8.8 GM/DL Hematocrit 27.6 % Mean Corpuscular Volume 77.4 FL Mean Corpuscular Hemoglobin 24.6 PG Mean Corpuscular Hemoglobin Concent 31.7 % Red Cell Distribution Width 16.5 % Platelet Count 285 TH/MM3 Mean Platelet Volume 7.6 FL Neutrophils (%) (Auto) 92.2 % Lymphocytes (%) (Auto) 3.0 % Monocytes (%) (Auto) 4.2 % Eosinophils (%) (Auto) 0.4 % Basophils (%) (Auto) 0.2 % Neutrophils # (Auto) 15.3 TH/MM3 Lymphocytes # (Auto) 0.5 TH/MM3 Monocytes # (Auto) 0.7 TH/MM3 Eosinophils # (Auto) 0.1 TH/MM3 Basophils # (Auto) 0.0 TH/MM3 CBC Comment DIFF FINAL Differential Comment Date/Time Source Procedure Growth Status 11/17/17 11:15 Blood Peripheral Aerobic Blood Culture - Preliminary NO GROWTH IN 2 DAYS Resulted 11/17/17 11:15 Blood Peripheral Anaerobic Blood Culture - Preliminary NO GROWTH IN 2 DAYS Resulted 11/17/17 12:34 Urine Catheterized Urine Urine Culture - Preliminary Streptococcus Species Resulted Physical Examination HEENT: PERRL; normocephalic; atraumatic; no jaundice. CHEST: CTA CARDIAC: RRR ABDOMEN: Soft, distended,lower quadrant TTP; no hepatosplenomegaly; bowel sounds are present in all four quadrants. EXTREMITIES: No clubbing, cyanosis, or edema. SKIN: Normal; no rash; no jaundice. 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 diverticular bleed vs infectious. denied abd pain but is tender in lower quadrant on exam. had colonoscopy 1 m ago in [place] but he does not know results. Had EGD 06/2017 with finding peptic duodenitis, duodenal ulcers, gastritis. - anemia - multifactorial. hgb did drop from 10.2 to 8.8 - leukocytosis - elevated troponins, cardiology following - encephalopathy, UTI, SAH per primary PLAN - refusing procedures - stool studies - c diff - CT abd no IV contrast - supportive care pt seen by myself and Dr Bryson and this note is on his behalf (Anjana Cosby) Physician Comments Patient seen and examined Agree with above Continue with current supportive care Monitor labs Await stool studies (Hayden Bryson MD) Anjana Cosby November 19, 2017 15:50 Hayden Bryson MD November 19, 2017 22:16
[2017-11-19] MEDS ORDERED: DIATRIZOATE MEGLUM/DIATRIZOATE SOD 9 ML CUP PO ONE (16:30)
[2017-11-20] VITALS (11 sets, daily range): BP systolic 114–142; BP diastolic 63–78; PULSE 72–86; RESP 18–19; TEMP 97.5–98.6; O2SAT 92–98
[2017-11-20] MEDS: PIPERACIL-TAZO 3.375 GM PREMIX 50 ML IV SCH ×3 (02:35→13:19)
[2017-11-20] MEDS: HYDROmorphone HCL 4 MG TAB PO PRN ×4 (02:48→17:48)
[2017-11-20] MEDS: CHLORHEXIDINE GLUCONATE 2 % 1 PACK (2 CLOTHS) TOP SCH (04:00)
[2017-11-20 05:25] LABS: AUTOMATED NEUTROPHIL # 15.7 TH/MM3 (1.8-7.7); BASOPHIL % 0.1 % (0.0-2.0); EOSINOPHIL # 0.1 TH/MM3 (0-0.4); EOSINOPHIL % 0.4 % (0.0-4.0); HEMATOCRIT 28.5 % (39.0-51.0); HEMOGLOBIN 9.1 GM/DL (13.0-17.0); LYMPH % 2.7 % (9.0-44.0); LYMPHOCYTE # 0.5 TH/MM3 (1.0-4.8); MEAN CELL VOLUME 77.6 FL (80.0-100.0); MEAN CORPUSCULAR HEMOGLOBIN 24.7 PG (27.0-34.0); MEAN CORPUSCULAR HGB CONC 31.8 % (32.0-36.0); MEAN PLATELET VOLUME 7.6 FL (7.0-11.0); MONO % 4.9 % (0.0-8.0); MONOCYTE # 0.8 TH/MM3 (0-0.9); NEUT % 91.9 % (16.0-70.0); PLATELET COUNT 307 TH/MM3 (150-450); RED BLOOD COUNT 3.67 MIL/MM3 (4.50-5.90); RED CELL DISTRIBUTION WIDTH 16.5 % (11.6-17.2); WHITE BLOOD COUNT 17.1 TH/MM3 (4.0-11.0)
[2017-11-20 06:01] LABS: BICARBONATE 22.5 MEQ/L (21.0-32.0); CALCIUM 7.5 MG/DL (8.5-10.1); CREATININE 1.86 MG/DL (0.60-1.30)
[2017-11-20] MEDS: INSULIN ASPART SUPPLEMENTAL SCALE SQ SCH ×4 (08:00→20:25)
[2017-11-20] MEDS: DOCUSATE SODIUM 50 MG/SENNA 8.6 MG TAB PO SCH ×2 (08:05→20:13)
[2017-11-20] MEDS: PANTOPRAZOLE SOD 40 MG DELAYED RELEASE TAB PO SCH (08:06)
[2017-11-20] MEDS: SODIUM CHLORIDE 0.9% FLUSH 10 ML FLUSH IV FLUSH SCH ×2 (08:07→20:14)
[2017-11-20] MEDS: SODIUM CHLOR 0.9% 1000 ML INJ 1,000 ML IV SCH ×2 (08:08→17:49)
[2017-11-20] MEDS: ONDANSETRON ODT 4 MG TAB SL PRN ×2 (08:09→14:25)
--- NOTE | 2017-11-20 13:06 | PD.CARD.PN ---
Subjective Subjective Remarks No events overnight Feels good, no complaints No chest pain Pain all over Objective Medications Current Medications Medications (Trade) Dose Ordered Sig/Jerzy Route Start Time Stop Time Status Last Admin Sodium Chloride 1,000 ml @ 150 mls/hr Q6H40M IV 11/17/17 14:41 11/20/17 08:08 (NS Flush) 2 ml UNSCH PRN IV FLUSH 11/17/17 14:45 (NS Flush) 2 ml BID IV FLUSH 11/17/17 21:00 11/20/17 08:07 (Tylenol) 650 mg Q6H PRN PO 11/17/17 14:45 11/19/17 05:30 (Protonix) 40 mg DAILY PO 11/18/17 09:00 11/20/17 08:06 (Duoneb Neb) 1 ampule Q4HR NEB PRN INH 11/17/17 14:45 ([facility] Nursing Information) 1 Q361D XX 11/17/17 14:45 (Chlorhexidine 2% Cloth) 3 pack Taper DAILY@04 TOP 11/18/17 04:00 11/14/18 03:59 11/19/17 00:40 (Chlorhexidine 2% Cloth) 3 pack UNSCH PRN TOP 11/17/17 14:45 (Nichole-Colace) 1 tab BID PO 11/17/17 21:00 11/19/17 09:40 (Milk Of Magnesia Liq) 30 ml Q12H PRN PO 11/17/17 14:45 11/19/17 04:12 (Senokot) 17.2 mg Q12H PRN PO 11/17/17 14:45 (Dulcolax Supp) 10 mg DAILY PRN RECTAL 11/17/17 14:45 (Lactulose Liq) 30 ml DAILY PRN PO 11/17/17 14:45 (D50w (Vial) Inj) 50 ml UNSCH PRN IV PUSH 11/17/17 15:00 (Glucagon Inj) 1 mg UNSCH PRN OTHER 11/17/17 15:00 (NovoLOG SUPPLEMENTAL SCALE) 1 ACHS SLIDING SCALE SQ 11/17/17 17:00 11/18/17 20:26 (Zofran Odt) 4 mg Q6H PRN SL 11/17/17 15:00 11/20/17 08:09 Piperacillin Sod/ Tazobactam Sod 50 ml @ 100 mls/hr Q6H IV 11/17/17 20:00 11/20/17 08:07 (Dilaudid) 6 mg Q4HR PRN PO 11/19/17 10:00 11/20/17 08:07 (Pill Splitter) 1 ea UNSCH PRN OTHER 11/19/17 12:30 Vital Signs / I&O Vital Signs Date Time Temp Pulse Resp B/P (MAP) Pulse Ox O2 Delivery O2 Flow Rate FiO2 11/20/17 12:00 98.4 82 18 115/63 (80) 93 11/20/17 11:30 98 Nasal Cannula 2.00 11/20/17 08:00 98.0 75 18 134/78 (96) 92 11/20/17 04:00 97.5 80 18 114/73 (87) 94 11/20/17 03:54 78 11/20/17 00:00 98.6 86 19 130/71 (90) 94 11/19/17 23:56 89 11/19/17 20:00 Room Air 11/19/17 20:00 98.0 78 18 128/64 (85) 90 11/19/17 19:43 82 11/19/17 17:35 92 Nasal Cannula 2.00 11/19/17 16:12 16 11/19/17 16:00 68 11/19/17 16:00 97.9 81 18 123/64 (83) 92 11/19/17 13:23 Nasal Cannula 2.00 I/O 11/19/17 11/19/17 11/19/17 11/20/17 11/20/17 11/20/17 07:00 15:00 23:00 07:00 15:00 23:00 Intake Total 1420 ml 50 ml 1420 ml Output Total 350 ml 570 ml 700 ml Balance 1070 ml -520 ml 720 ml Intake Oral 420 ml IV Total 1420 ml 50 ml 1000 ml Output Urine Total 350 ml Drainage Total 570 ml 700 ml # Bowel Movements 1 4 Physical Exam GENERAL: NAD, AAOx3 SKIN: Warm and dry. HEAD: Atraumatic. Normocephalic. EYES: Pupils equal and round. No scleral icterus. No injection or drainage. ENT: No nasal bleeding or discharge. Mucous membranes pink and moist. NECK: Trachea midline. No JVD. CARDIOVASCULAR: Regular rate and rhythm. RESPIRATORY: No accessory muscle use. Clear to auscultation. Breath sounds equal bilaterally. GASTROINTESTINAL: Abdomen soft, non-tender, nondistended. Hepatic and splenic margins not palpable. MUSCULOSKELETAL: Extremities without clubbing, cyanosis, or edema. No obvious deformities. NEUROLOGICAL: Awake and alert. No obvious cranial nerve deficits. Motor grossly within normal limits. Five out of 5 muscle strength in the arms and legs. Normal speech. PSYCHIATRIC: Appropriate mood and affect; insight and judgment normal. Laboratory Laboratory Tests Test 11/19/17 18:15 11/20/17 04:30 Stool C. difficile Toxin (PCR) POSITIVE Stl C. difficile Toxin Epiderm 027 PRESUMPTIVE NEGATIVE White Blood Count 17.1 TH/MM3 Red Blood Count 3.67 MIL/MM3 Hemoglobin 9.1 GM/DL Hematocrit 28.5 % Mean Corpuscular Volume 77.6 FL Mean Corpuscular Hemoglobin 24.7 PG Mean Corpuscular Hemoglobin Concent 31.8 % Red Cell Distribution Width 16.5 % Platelet Count 307 TH/MM3 Mean Platelet Volume 7.6 FL Neutrophils (%) (Auto) 91.9 % Lymphocytes (%) (Auto) 2.7 % Monocytes (%) (Auto) 4.9 % Eosinophils (%) (Auto) 0.4 % Basophils (%) (Auto) 0.1 % Neutrophils # (Auto) 15.7 TH/MM3 Lymphocytes # (Auto) 0.5 TH/MM3 Monocytes # (Auto) 0.8 TH/MM3 Eosinophils # (Auto) 0.1 TH/MM3 Basophils # (Auto) 0.0 TH/MM3 CBC Comment DIFF FINAL Differential Comment Blood Urea Nitrogen 30 MG/DL Creatinine 1.86 MG/DL Random Glucose 96 MG/DL Calcium Level 7.5 MG/DL Sodium Level 141 MEQ/L Potassium Level 3.4 MEQ/L Chloride Level 109 MEQ/L Carbon Dioxide Level 22.5 MEQ/L Anion Gap 10 MEQ/L Estimat Glomerular Filtration Rate 37 ML/MIN Assessment and Plan Problem List: (1) Acute on chronic renal failure ICD Codes: N17.9 - Acute kidney failure, unspecified; N18.9 - Chronic kidney disease, unspecified Status: Acute (2) SAH (subarachnoid hemorrhage) ICD Codes: I60.9 - Nontraumatic subarachnoid hemorrhage, unspecified Status: Acute (3) Debility ICD Codes: R53.81 - Other malaise (4) UTI (urinary tract infection) ICD Codes: N39.0 - Urinary tract infection, site not specified Status: Acute (5) Non-ST elevation WI (NSTEMI) ICD Codes: I21.4 - Non-ST elevation (NSTEMI) myocardial infarction Status: Acute (6) Acute renal failure ICD Codes: N17.9 - Acute kidney failure, unspecified Status: Acute (7) Prostate cancer metastatic to bone ICD Codes: C61 - Malignant neoplasm of prostate; C79.51 - Secondary malignant neoplasm of bone Status: Chronic (8) MIRYAM (acute kidney injury) ICD Codes: N17.9 - Acute kidney failure, unspecified (9) Chronic systolic heart failure ICD Codes: I50.22 - Chronic systolic (congestive) heart failure Status: Chronic Assessment and Plan 1) Multiple falls Deconditioning/UTI? 2) Subacute hemorrhage on CT of the head 3) Elevated troponins Denies chest pain Downtrending Possible type 2 Not a candidate for invasive, con't medical management 4) 2D echo pending 5) Hospice consult as he's currently under their care Gregor Ram DO November 20, 2017 13:06
--- NOTE | 2017-11-20 13:56 | HHI.PR ---
Subjective Remarks Patient with bloody diarrhea today. He is however refusing further intervention by the GI. No nausea vomiting. Not eating much. Still with abdominal pain. Objective Vitals Vital Signs Date Time Temp Pulse Resp B/P (MAP) Pulse Ox O2 Delivery O2 Flow Rate FiO2 11/20/17 12:00 98.4 82 18 115/63 (80) 93 11/20/17 11:30 98 Nasal Cannula 2.00 11/20/17 08:00 98.0 75 18 134/78 (96) 92 11/20/17 04:00 97.5 80 18 114/73 (87) 94 11/20/17 03:54 78 11/20/17 00:00 98.6 86 19 130/71 (90) 94 11/19/17 23:56 89 11/19/17 20:00 Room Air 11/19/17 20:00 98.0 78 18 128/64 (85) 90 11/19/17 19:43 82 11/19/17 17:35 92 Nasal Cannula 2.00 11/19/17 16:12 16 11/19/17 16:00 68 11/19/17 16:00 97.9 81 18 123/64 (83) 92 I/O 11/19/17 11/19/17 11/19/17 11/20/17 11/20/17 11/20/17 07:00 15:00 23:00 07:00 15:00 23:00 Intake Total 1420 ml 50 ml 1420 ml Output Total 350 ml 570 ml 700 ml Balance 1070 ml -520 ml 720 ml Intake Oral 420 ml IV Total 1420 ml 50 ml 1000 ml Output Urine Total 350 ml Drainage Total 570 ml 700 ml # Bowel Movements 1 4 Result Diagram: 11/20/17 0430 11/20/17 0430 Imaging Last Impressions Head CT 11/17/17 1106 Signed Impressions: Service Date/Time: Friday, November 17, 2017 13:09 - CONCLUSION: 1. Subtle increased density in the extra-axial right frontal mid to low convexities which may reflect subacute to chronic extra-axial blood products. 2. Moderate diffuse stable volume loss and periventricular small vessel ischemic white matter demyelination out of proportion to age. Gibson Wagner MD Chest X-Ray 11/17/17 1106 Signed Impressions: Service Date/Time: Friday, November 17, 2017 11:32 - CONCLUSION: 1. Minimal left lung base atelectasis. 2. Diffuse osseous metastatic disease. Gibson Wagner MD Objective Remarks GENERAL: CARDIOVASCULAR: Regular rate and rhythm. RESPIRATORY: No accessory muscle use. Clear to auscultation. Breath sounds equal bilaterally. GASTROINTESTINAL: Abdomen soft, non-tender, nondistended. Hepatic and splenic margins not palpable. MUSCULOSKELETAL: Extremities without clubbing, cyanosis, or edema. No obvious deformities. NEUROLOGICAL: Awake and alert. No obvious cranial nerve deficits. Motor grossly within normal limits. Five out of 5 muscle strength in the arms and legs. Normal speech. PSYCHIATRIC: Appropriate mood and affect; insight and judgment normal. A/P Problem List: (1) Acute metabolic encephalopathy ICD Code: G93.41 - Metabolic encephalopathy Status: Resolved (2) UTI (urinary tract infection) ICD Code: N39.0 - Urinary tract infection, site not specified Status: Acute (3) Delirium due to another medical condition ICD Code: F05 - Delirium due to known physiological condition Status: Acute (4) Debility ICD Code: R53.81 - Other malaise (5) Acute on chronic renal failure ICD Code: N17.9 - Acute kidney failure, unspecified; N18.9 - Chronic kidney disease, unspecified Status: Acute (6) SAH (subarachnoid hemorrhage) ICD Code: I60.9 - Nontraumatic subarachnoid hemorrhage, unspecified Status: Acute Assessment and Plan This is a 57-year-old male with presumed urosepsis, with hypotension altered mental status with recurrent frequent falls. Patient recently admitted with acute on chronic subarachnoid hemorrhage. CT shows subacute on chronic extra- axial collections of blood. Neurosurgery has been consulted. Plan by systems: Neurologic: Encephalopathy Anxiety disorder Depression Neuro checks per ICU protocol CT brain-Subtle increased density in the extra-axial right frontal mid to low convexities which may reflect subacute to chronic extra-axial blood products. Moderate diffuse stable volume loss and periventricular small vessel ischemic white matter demyelination out of proportion to age. Neurosurgery consulted- I discussed with Dr. Cabrera , neurosurgeon, who reviewed imaging and assessed patient, no surgical intervention required at this time Avoid sedatives Will hold escitalopram 10 mg/day, Haldol PRN, Ativan PRN home medications Respiratory: Maintain O2 sat greater than 92%. Provide O2 14 L/min nasal cannula Duo nebs every 4 hours as needed Cardiovascular: Chronic systolic heart failure CAD Hypertension BNP slightly elevated Trend troponin level. Troponins are trending down. Maintain MAP greater than 65 Hold carvedilol 12.5 twice daily, and Lasix 40 mg/day ( home medications) in the setting of hypotension Patient denies chest pain at this time Renal: Presumed urosepsis BPH Acute on chronic kidney disease Prostate cancer with metastasis Remote history of testicular cancer Bilateral nephrostomy tubes Hold Tamulosin in the setting of hypotension Last antibiotics fluconazole and Ceftin 10 day course 10/15/2017 for UTI -- Strict I/Os FEN/GI: Nausea Dehydration Heart healthy diet Patient normally takes omeprazole twice daily, continue PPI Received 2 L normal saline IV bolus in the ED Normal saline 84 cc/hour Creatinine 3.49, continue to monitor Alkaline phosphatase 170, no pain on palpation-consider gallbladder ultrasound Heme/ID: Leukocytosis Follow-up urine and blood cultures Trend lactate Patient received Zosyn in the ED ,continue every 6 hours Monitor CBC Obtain INR Endocrine: Glucose monitoring per ICU protocol -- SSI GI: Bloody diarrhea. Monitor H&H and transfuse if need. Consulted GI. Patient is however refusing any procedures. Check for C. difficile, stool studies Prophylaxis: GI Prophylaxis Protonix DVT Prophylaxis -- SCDs Hold pharmacological DVT prophylaxis at this time. Lines: Peripheral IVs 2. Central line if indicated Dispo: This patient remains ill. DC when improved and cleared by consultants. Code Status Full Discussed Condition With Dr. Brenner, patient's mother. Patient is registered with [facility] secondary to multiple medical comorbidities. Upon inquiry patient requests to remain full code and all aggressive measures to be instituted. Previously seen by palliative care Ms. Ayala. Spoke with hospice following GI consult as patient with bloody diarrhea. However patient is refusing further procedures. Consult palliative care. Patient is with hospice s oP and curently is full code his plans are for home with hospice Geraldine Escobar MD November 20, 2017 13:56
[2017-11-20] MEDS ORDERED: POTASSIUM BICARBONATE 25 MEQ EFFERVESCENT TAB PO ONE (14:00)
--- NOTE | 2017-11-20 16:13 | RADRPT ---
EXAM DATE: 11/20/2017 3:14 PM EDT AGE/SEX: 57 years / Male INDICATIONS: Blood in stool. Lower abdominal pain. CLINICAL DATA: This is the patient's initial encounter. Patient reports that signs and symptoms have been present for 2 days and indicates a pain score of 7/10. MEDICAL/SURGICAL HISTORY: Cardiovascular disease. Carcinoma, testicular. Carcinoma, prostatic . Diabetes. Hypertension. None. RADIATION DOSE: 15.70 CTDI (mGy) COMPARISON: [facility], CT ABDOMEN & PELVIS W/O CONTRAST, 06/19/2017. . TECHNIQUE: Multiple contiguous axial images were obtained through the abdomen. Images were obtained using multiple row detector helical technique. Using dose reduction techniques, radiation dose was ke pt as low as reasonably achievable to obtain optimal diagnostic quality images. FINDINGS: LOWER LUNGS: Patchy bilateral airspace consolidation at the bases with very trace pleural effusions. LIVER: Liver demonstrates grossly uniform density without significant intrahepatic ductal dilatation . Gallbladder is moderately distended without radiopaque stones. SPLEEN: Homogeneous density without enlargement. PANCREAS: Unremarkable without mass or calcification. KIDNEYS: There is a right sided pigtail nephrostomy catheter in position. There is also a right-side d double-J ureteral stent in place. Interval removal of left percutaneous nephrostomy catheter. There is moderate to severe bilateral hydroureteronephrosis extending to the bladder level. This appears u nchanged on the left but is new on the right side. There is also layering dense material in the infer ior pole of the right kidney which may reflect stones/debris or blood products. ADRENAL GLANDS: 1 cm stable left adrenal mass demonstrating low density consistent with adenoma. AORTA: Ashley-aneurysmal. BOWEL/MESENTERY: Diffuse colonic wall thickening in the sigmoid and rectum. Moderate amount of stool in the transverse colon. Small bowel is decompressed. Diffuse mesenteric edema with trace free fluid along the margins of the liver and spleen. ABDOMINAL WALL: Intact. Multiple slightly prominent bilateral inguinal nodes measuring up to 11 mm. RETROPERITONEUM: Interval progression of retroperitoneal adenopathy with numerous enlarged nodes ext ending throughout the retroperitoneum. These are most notable for number rather than size with the la rgest measuring up to 1.7 cm. BLADDER: Nearly completely decompressed. REPRODUCTIVE: Prominent prostate. BONY STRUCTURES: Redemonstration of diffuse blastic osseous metastases throughout the visualized oss eous structures. CONCLUSION: 1. Interval development of moderate to severe right-sided hydronephrosis despite double-J ureteral s tent and percutaneous nephrostomy catheter in apparently good position. Hyperdense material in the in ferior pole likely reflects debris/calculi or hemorrhage which may result in catheter malfunction. Ev aluation of the existing pigtail cystostomy catheter and output is recommended. Catheter may need to be exchanged for improved patency. 2. Stable moderate to severe left-sided hydronephrosis following removal of left-sided nephrostomy c atheter. 3. Diffuse mesenteric edema and trace ascites. 4. Diffuse circumferential sigmoid and rectal wall thickening. Although colonic wall thickening can be seen with hypoalbuminemia/mesenteric edema, this is limited to the sigmoid and rectum. Differentia l considerations include radiation-induced colitis/proctitis, infection and ischemic etiologies. 5. Redemonstration diffuse blastic osseous metastatic disease with interval progression of retroperi toneal adenopathy. 6. Patchy right basilar airspace consolidation with very trace pleural effusions. Electronically signed by: Gibson Wagner MD 11/20/2017 4:12 PM EDT
--- NOTE | 2017-11-20 16:31 | HHI.GIFU ---
Subjective Remarks Pt resting in bed Complaining of diffuse abdominal pain States has only had a few small BMs since arrival, has been trying to hold it in because he is embarrassed Denies nausea, vomiting Poor appetite (Ayesha Negrete) Objective Vitals I&O Vital Signs Date Time Temp Pulse Resp B/P (MAP) Pulse Ox O2 Delivery O2 Flow Rate FiO2 11/20/17 12:04 72 11/20/17 12:00 Room Air 11/20/17 12:00 98.4 82 18 115/63 (80) 93 11/20/17 11:30 98 Nasal Cannula 2.00 11/20/17 08:05 76 11/20/17 08:00 98.0 75 18 134/78 (96) 92 11/20/17 08:00 Room Air 11/20/17 04:00 97.5 80 18 114/73 (87) 94 11/20/17 03:54 78 11/20/17 00:00 98.6 86 19 130/71 (90) 94 11/19/17 23:56 89 11/19/17 20:00 Room Air 11/19/17 20:00 98.0 78 18 128/64 (85) 90 11/19/17 19:43 82 11/19/17 17:35 92 Nasal Cannula 2.00 I/O 11/19/17 11/19/17 11/19/17 11/20/17 11/20/17 11/20/17 07:00 15:00 23:00 07:00 15:00 23:00 Intake Total 1420 ml 50 ml 1420 ml Output Total 350 ml 570 ml 700 ml Balance 1070 ml -520 ml 720 ml Intake Oral 420 ml IV Total 1420 ml 50 ml 1000 ml Output Urine Total 350 ml Drainage Total 570 ml 700 ml # Bowel Movements 1 4 Laboratory Laboratory Tests Test 11/19/17 18:15 11/20/17 04:30 Stool C. difficile Toxin (PCR) POSITIVE Stl C. difficile Toxin Epiderm 027 PRESUMPTIVE NEGATIVE White Blood Count 17.1 Red Blood Count 3.67 Hemoglobin 9.1 Hematocrit 28.5 Mean Corpuscular Volume 77.6 Mean Corpuscular Hemoglobin 24.7 Mean Corpuscular Hemoglobin Concent 31.8 Red Cell Distribution Width 16.5 Platelet Count 307 Mean Platelet Volume 7.6 Neutrophils (%) (Auto) 91.9 Lymphocytes (%) (Auto) 2.7 Monocytes (%) (Auto) 4.9 Eosinophils (%) (Auto) 0.4 Basophils (%) (Auto) 0.1 Neutrophils # (Auto) 15.7 Lymphocytes # (Auto) 0.5 Monocytes # (Auto) 0.8 Eosinophils # (Auto) 0.1 Basophils # (Auto) 0.0 CBC Comment DIFF FINAL Differential Comment Blood Urea Nitrogen 30 Creatinine 1.86 Random Glucose 96 Calcium Level 7.5 Sodium Level 141 Potassium Level 3.4 Chloride Level 109 Carbon Dioxide Level 22.5 Anion Gap 10 Estimat Glomerular Filtration Rate 37 Date/Time Source Procedure Growth Status 11/17/17 11:15 Blood Peripheral Aerobic Blood Culture - Preliminary NO GROWTH IN 3 DAYS Resulted 11/17/17 11:15 Blood Peripheral Anaerobic Blood Culture - Preliminary NO GROWTH IN 3 DAYS Resulted 11/19/17 18:15 Stool Stool Cryptosporidium Exam Pending Resulted 11/19/17 18:15 Stool Stool Stool Pus (MIKEY) - Final NO WBC'S SEEN Resulted 11/19/17 18:15 Stool Stool Giardia Antigen (MIKEY) Pending Resulted 11/17/17 12:34 Urine Catheterized Urine Urine Culture - Final Enterococcus Faecalis Complete Imaging Last Impressions Abdomen/Pelvis CT 11/20/17 0000 Signed Impressions: CONCLUSION: Head CT 11/17/17 1106 Signed Impressions: Service Date/Time: Friday, November 17, 2017 13:09 - CONCLUSION: 1. Subtle increased density in the extra-axial right frontal mid to low convexities which may reflect subacute to chronic extra-axial blood products. 2. Moderate diffuse stable volume loss and periventricular small vessel ischemic white matter demyelination out of proportion to age. Gibson Wagner MD Chest X-Ray 11/17/176 Signed Impressions: Service Date/Time: Friday, November 17, 2017 11:32 - CONCLUSION: 1. Minimal left lung base atelectasis. 2. Diffuse osseous metastatic disease. Gibson Wagner MD Physical Exam HEENT: Normocephalic; atraumatic CHEST: Even/unlabored CARDIAC: RRR ABDOMEN: Distended, soft, diffuse TTP, bowel sounds active EXTREMITIES: No clubbing, cyanosis, or edema. SKIN: Normal; no rash; no jaundice. 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 (Ayesha Negrete) Assessment and Plan Plan ASSESSMENT - Diarrhea with reports of hematochezia- states symptoms have been intermittent x 1 month Reports colonoscopy 1 months ago in [place], unsure of results C. Diff positive, epid negative- pt is poor historian, states possibly one previous episode of C. Diff. Denies recent abx, hospitalizations. CT abdomen and pelvis WO IV Contrast (11/20) --> Diffuse mesenteric edema and trace ascites. Diffuse circumferential sigmoid and rectal wall thickening. Although colonic wall thickening can be seen with hypoalbuminemia/mesenteric edema, this is limited to the sigmoid and rectum. - Anemia - multifactorial. hgb did drop from 10.2 to 8.8 EGD 06/2017 with finding peptic duodenitis, duodenal ulcers, gastritis. Pathology (duodenum) one fragment of duodenal mucosa with features consistent with peptic duodenitis, second fragment of necrotic tissue with acute inflammation consistent with ulcer ( gastric antrum) antral mucosa with mild active chronic gastritis and focal features suggestive of reactive gastropathy. - Stage 4 prostate cancer with bone metastasis, remote history of testicular cancer- Bilateral nephrostomy tubes - Elevated troponin- cardiology following PLAN - Treatment for C. Diff- Flagyl and Vanco - Monitor labs - Supportive care - Further recommendations based on clinical course Pt has been seen and examined by myself and Dr. Bryson and this note is written on his behalf (Ayesha Negrete) Physician Comments Patient seen and examined Agree with above Continue with current supportive care Monitor labs (Hayden Bryson MD) Ayesha Negrete November 20, 2017 16:31 Hayden Bryson MD November 20, 2017 21:51
[2017-11-20] MEDS: VANCOMYCIN 500 MG VIAL (FOR ORAL USE ONLY) PO SCH ×2 (17:47→20:25)
[2017-11-20] MEDS: CIPROFLOXACIN 500 MG TAB PO SCH (20:25)
[2017-11-21] VITALS (11 sets, daily range): BP systolic 99–145; BP diastolic 55–80; PULSE 72–85; RESP 16–20; TEMP 97.3–98.9; O2SAT 90–96
[2017-11-21] MEDS: SODIUM CHLOR 0.9% 1000 ML INJ 1,000 ML IV SCH ×4 (00:11→22:50)
[2017-11-21] MEDS: HYDROmorphone HCL 4 MG TAB PO PRN ×3 (01:14→19:43)
[2017-11-21] MEDS: CHLORHEXIDINE GLUCONATE 2 % 1 PACK (2 CLOTHS) TOP SCH (04:00)
--- NOTE | 2017-11-21 07:48 | HHI.PR ---
Subjective Remarks Still with diarrhea however improved since yesterday. No fever or chills. No nausea or vomiting. With abdominal cramps. Objective Vitals Vital Signs Date Time Temp Pulse Resp B/P (MAP) Pulse Ox O2 Delivery O2 Flow Rate FiO2 11/21/17 04:00 84 11/21/17 04:00 98.9 85 19 125/59 (81) 94 11/21/17 00:59 81 11/21/17 00:00 Room Air 11/21/17 00:00 98.7 80 16 131/69 (89) 94 11/20/17 20:35 77 11/20/17 20:00 Room Air 11/20/17 20:00 98.0 79 18 130/68 (88) 94 11/20/17 16:00 98.1 74 18 142/76 (98) 95 11/20/17 12:04 72 11/20/17 12:00 Room Air 11/20/17 12:00 98.4 82 18 115/63 (80) 93 11/20/17 11:30 98 Nasal Cannula 2.00 11/20/17 08:05 76 11/20/17 08:00 98.0 75 18 134/78 (96) 92 11/20/17 08:00 Room Air I/O 11/20/17 11/20/17 11/20/17 11/21/17 11/21/17 11/21/17 07:00 15:00 23:00 07:00 15:00 23:00 Intake Total 1420 ml 480 ml 1240 ml Output Total 700 ml Balance 720 ml 480 ml 1240 ml Intake Oral 420 ml 480 ml 240 ml IV Total 1000 ml 1000 ml Drainage Total 700 ml # Bowel Movements 4 4 6 Result Diagram: 11/20/17 0430 11/20/17 0430 Objective Remarks GENERAL: CARDIOVASCULAR: Regular rate and rhythm. RESPIRATORY: No accessory muscle use. Clear to auscultation. Breath sounds equal bilaterally. GASTROINTESTINAL: Abdomen soft, non-tender, nondistended. Hepatic and splenic margins not palpable. MUSCULOSKELETAL: Extremities without clubbing, cyanosis, or edema. No obvious deformities. NEUROLOGICAL: Awake and alert. No obvious cranial nerve deficits. Motor grossly within normal limits. Five out of 5 muscle strength in the arms and legs. Normal speech. PSYCHIATRIC: Appropriate mood and affect; insight and judgment normal. A/P Problem List: (1) Acute metabolic encephalopathy ICD Code: G93.41 - Metabolic encephalopathy Status: Resolved (2) UTI (urinary tract infection) ICD Code: N39.0 - Urinary tract infection, site not specified Status: Acute (3) Delirium due to another medical condition ICD Code: F05 - Delirium due to known physiological condition Status: Acute (4) Debility ICD Code: R53.81 - Other malaise (5) Acute on chronic renal failure ICD Code: N17.9 - Acute kidney failure, unspecified; N18.9 - Chronic kidney disease, unspecified Status: Acute (6) SAH (subarachnoid hemorrhage) ICD Code: I60.9 - Nontraumatic subarachnoid hemorrhage, unspecified Status: Acute Assessment and Plan This is a 57-year-old male with presumed urosepsis, with hypotension altered mental status with recurrent frequent falls. Patient recently admitted with acute on chronic subarachnoid hemorrhage. CT shows subacute on chronic extra- axial collections of blood. Neurosurgery has been consulted. Plan by systems: Neurologic: Encephalopathy Anxiety disorder Depression Neuro checks per ICU protocol CT brain-Subtle increased density in the extra-axial right frontal mid to low convexities which may reflect subacute to chronic extra-axial blood products. Moderate diffuse stable volume loss and periventricular small vessel ischemic white matter demyelination out of proportion to age. Neurosurgery consulted- I discussed with Dr. Cabrera , neurosurgeon, who reviewed imaging and assessed patient, no surgical intervention required at this time Avoid sedatives Will hold escitalopram 10 mg/day, Haldol PRN, Ativan PRN home medications Respiratory: Maintain O2 sat greater than 92%. Provide O2 14 L/min nasal cannula Duo nebs every 4 hours as needed Cardiovascular: Chronic systolic heart failure CAD Hypertension BNP slightly elevated Trend troponin level. Troponins are trending down. Maintain MAP greater than 65 Hold carvedilol 12.5 twice daily, and Lasix 40 mg/day ( home medications) in the setting of hypotension Patient denies chest pain at this time Renal: Presumed urosepsis BPH Acute on chronic kidney disease Prostate cancer with metastasis Remote history of testicular cancer Bilateral nephrostomy tubes Hold Tamulosin in the setting of hypotension Last antibiotics fluconazole and Ceftin 10 day course 10/15/2017 for UTI -- Strict I/Os Restart home dose dilaudid PO for pain FEN/GI: Nausea Dehydration Heart healthy diet Patient normally takes omeprazole twice daily, continue PPI Received 2 L normal saline IV bolus in the ED Normal saline 84 cc/hour Creatinine 3.49, continue to monitor Alkaline phosphatase 170, no pain on palpation-consider gallbladder ultrasound Heme/ID: Leukocytosis, improving C. difficile colitis. UTI with Enterococcus faecalis pansensitive Follow-up urine and blood cultures Trend lactate DC Zosyn . Start ciprofloxacin Started Vanco po , continue Flagyl for C. difficile Monitor CBC Monitor electrolytes and replace as needed Endocrine: Glucose monitoring as need -- SSI GI: Bloody diarrhea. Monitor H&H and transfuse if need. Consulted GI. Patient is however refusing any procedures. With C. difficile colitis as above + C. difficile. other stool studies pending Prophylaxis: GI Prophylaxis Protonix DVT Prophylaxis -- SCDs Hold pharmacological DVT prophylaxis at this time. Lines: Peripheral IVs 2. Central line if indicated Dispo: This patient remains ill. DC when improved and cleared by consultants. Code Status Full Discussed Condition With Dr. Brenner, patient's mother. Patient is registered with [facility] hospice secondary to multiple medical comorbidities. Upon inquiry patient requests to remain full code and all aggressive measures to be instituted. Previously seen by palliative care Ms. Ayala. Spoke with hospice following GI consult as patient with bloody diarrhea. However patient is refusing further procedures. Consult palliative care. Patient is with hospice s oP and currently is full code his plans are for home with hospice? However patient decided full code and declined hospice at this time. Hospice signed off. Geraldine Escobar MD November 21, 2017 07:48
[2017-11-21] MEDS: INSULIN ASPART SUPPLEMENTAL SCALE SQ SCH ×4 (08:00→21:00)
[2017-11-21] MEDS: PANTOPRAZOLE SOD 40 MG DELAYED RELEASE TAB PO SCH (08:27)
[2017-11-21] MEDS: CIPROFLOXACIN 500 MG TAB PO SCH ×2 (08:27→22:48)
[2017-11-21] MEDS: VANCOMYCIN 500 MG VIAL (FOR ORAL USE ONLY) PO SCH ×4 (08:28→22:49)
[2017-11-21] MEDS: DOCUSATE SODIUM 50 MG/SENNA 8.6 MG TAB PO SCH (08:28)
[2017-11-21] MEDS: SODIUM CHLORIDE 0.9% FLUSH 10 ML FLUSH IV FLUSH SCH ×2 (08:29→21:00)
[2017-11-21 10:43] LABS: AUTOMATED NEUTROPHIL # 13.9 TH/MM3 (1.8-7.7); BASOPHIL % 0.1 % (0.0-2.0); EOSINOPHIL % 0.1 % (0.0-4.0); HEMATOCRIT 33.8 % (39.0-51.0); HEMOGLOBIN 10.4 GM/DL (13.0-17.0); LYMPH % 3.7 % (9.0-44.0); LYMPHOCYTE # 0.6 TH/MM3 (1.0-4.8); MEAN CELL VOLUME 79.2 FL (80.0-100.0); MEAN CORPUSCULAR HEMOGLOBIN 24.3 PG (27.0-34.0); MEAN CORPUSCULAR HGB CONC 30.7 % (32.0-36.0); MEAN PLATELET VOLUME 7.6 FL (7.0-11.0); MONO % 7.1 % (0.0-8.0); MONOCYTE # 1.1 TH/MM3 (0-0.9); PLATELET COUNT 321 TH/MM3 (150-450); RED BLOOD COUNT 4.27 MIL/MM3 (4.50-5.90); WHITE BLOOD COUNT 15.6 TH/MM3 (4.0-11.0)
[2017-11-21 11:30] LABS: BICARBONATE 16.1 MEQ/L (21.0-32.0); CALCIUM 7.8 MG/DL (8.5-10.1); CREATININE 2.99 MG/DL (0.60-1.30)
[2017-11-21 12:03] LABS: BANDS 38 % (0-6); LYMPHOCYTES 2 % (9-44); MONOCYTES 4 % (0-8); NEUTROPHIL # MANUAL DIFF 14.4 TH/MM3 (1.8-7.7); POLYS (SEG NEUTROPHILS) 54 % (16-70)
--- NOTE | 2017-11-21 12:10 | PD.CARD.PN ---
Subjective Subjective Remarks No chest pain Pain all over Bloody diarrhea Objective Medications Current Medications Medications (Trade) Dose Ordered Sig/Jerzy Route Start Time Stop Time Status Last Admin Sodium Chloride 1,000 ml @ 150 mls/hr Q6H40M IV 11/17/17 14:41 11/21/17 08:26 (NS Flush) 2 ml UNSCH PRN IV FLUSH 11/17/17 14:45 (NS Flush) 2 ml BID IV FLUSH 11/17/17 21:00 11/21/17 08:29 (Tylenol) 650 mg Q6H PRN PO 11/17/17 14:45 11/19/17 05:30 (Protonix) 40 mg DAILY PO 11/18/17 09:00 11/21/17 08:27 (Duoneb Neb) 1 ampule Q4HR NEB PRN INH 11/17/17 14:45 ([facility] Information) 1 Q361D XX 11/17/17 14:45 (Chlorhexidine 2% Cloth) 3 pack Taper DAILY@04 TOP 11/18/17 04:00 11/14/18 03:59 11/19/17 00:40 (Chlorhexidine 2% Cloth) 3 pack UNSCH PRN TOP 11/17/17 14:45 (Nichole-Colace) 1 tab BID PO 11/17/17 21:00 11/19/17 09:40 (Milk Of Magnesia Liq) 30 ml Q12H PRN PO 11/17/17 14:45 11/19/17 04:12 (Senokot) 17.2 mg Q12H PRN PO 11/17/17 14:45 (Dulcolax Supp) 10 mg DAILY PRN RECTAL 11/17/17 14:45 (Lactulose Liq) 30 ml DAILY PRN PO 11/17/17 14:45 (D50w (Vial) Inj) 50 ml UNSCH PRN IV PUSH 11/17/17 15:00 (Glucagon Inj) 1 mg UNSCH PRN OTHER 11/17/17 15:00 (NovoLOG SUPPLEMENTAL SCALE) 1 ACHS SLIDING SCALE SQ 11/17/17 17:00 11/18/17 20:26 (Zofran Odt) 4 mg Q6H PRN SL 11/17/17 15:00 11/20/17 14:25 (Dilaudid) 6 mg Q4HR PRN PO 11/19/17 10:00 11/21/17 07:52 (Pill Splitter) 1 ea UNSCH PRN OTHER 11/19/17 12:30 (VANCOMYCIN for oral use only) 250 mg QID PO 11/20/17 18:00 11/21/17 08:28 (Cipro) 500 mg Q12HR PO 11/20/17 21:00 11/21/17 08:27 Metronidazole 100 ml @ 100 mls/hr Q8H IV 11/21/17 12:15 UNV Vital Signs / I&O Vital Signs Date Time Temp Pulse Resp B/P (MAP) Pulse Ox O2 Delivery O2 Flow Rate FiO2 11/21/17 08:15 94 Nasal Cannula 2.00 11/21/17 08:06 97.8 76 17 108/60 (76) 96 11/21/17 08:00 Room Air 2.00 11/21/17 08:00 78 11/21/17 04:00 84 11/21/17 04:00 98.9 85 19 125/59 (81) 94 11/21/17 00:59 81 11/21/17 00:00 Room Air 11/21/17 00:00 98.7 80 16 131/69 (89) 94 11/20/17 20:35 77 11/20/17 20:00 Room Air 11/20/17 20:00 98.0 79 18 130/68 (88) 94 11/20/17 16:00 98.1 74 18 142/76 (98) 95 I/O 11/20/17 11/20/17 11/20/17 11/21/17 11/21/17 11/21/17 07:00 15:00 23:00 07:00 15:00 23:00 Intake Total 1420 ml 480 ml 1240 ml Output Total 700 ml Balance 720 ml 480 ml 1240 ml Intake Oral 420 ml 480 ml 240 ml IV Total 1000 ml 1000 ml Drainage Total 700 ml # Bowel Movements 4 4 6 Physical Exam GENERAL: NAD, AAOx3 SKIN: Warm and dry. HEAD: Atraumatic. Normocephalic. EYES: Pupils equal and round. No scleral icterus. No injection or drainage. ENT: No nasal bleeding or discharge. Mucous membranes pink and moist. NECK: Trachea midline. No JVD. CARDIOVASCULAR: Regular rate and rhythm. RESPIRATORY: No accessory muscle use. Clear to auscultation. Breath sounds equal bilaterally. GASTROINTESTINAL: Abdomen soft, non-tender, nondistended. Hepatic and splenic margins not palpable. MUSCULOSKELETAL: Extremities without clubbing, cyanosis, or edema. No obvious deformities. NEUROLOGICAL: Awake and alert. No obvious cranial nerve deficits. Motor grossly within normal limits. Five out of 5 muscle strength in the arms and legs. Normal speech. PSYCHIATRIC: Appropriate mood and affect; insight and judgment normal. Laboratory Laboratory Tests Test 11/21/17 10:09 White Blood Count 15.6 TH/MM3 Red Blood Count 4.27 MIL/MM3 Hemoglobin 10.4 GM/DL Hematocrit 33.8 % Mean Corpuscular Volume 79.2 FL Mean Corpuscular Hemoglobin 24.3 PG Mean Corpuscular Hemoglobin Concent 30.7 % Red Cell Distribution Width 17.0 % Platelet Count 321 TH/MM3 Mean Platelet Volume 7.6 FL Neutrophils (%) (Auto) 89.0 % Lymphocytes (%) (Auto) 3.7 % Monocytes (%) (Auto) 7.1 % Eosinophils (%) (Auto) 0.1 % Basophils (%) (Auto) 0.1 % Neutrophils # (Auto) 13.9 TH/MM3 Lymphocytes # (Auto) 0.6 TH/MM3 Monocytes # (Auto) 1.1 TH/MM3 Eosinophils # (Auto) 0.0 TH/MM3 Basophils # (Auto) 0.0 TH/MM3 CBC Comment AUTO DIFF Differential Total Cells Counted 100 Neutrophils % (Manual) 54 % Band Neutrophils % 38 % Lymphocytes % 2 % Monocytes % 4 % Eosinophils % 2 % Neutrophils # (Manual) 14.4 TH/MM3 Differential Comment FINAL DIFF MANUAL Platelet Estimate NORMAL Platelet Morphology Comment NORMAL Blood Urea Nitrogen 41 MG/DL Creatinine 2.99 MG/DL Random Glucose 87 MG/DL Calcium Level 7.8 MG/DL Sodium Level 140 MEQ/L Potassium Level 3.8 MEQ/L Chloride Level 110 MEQ/L Carbon Dioxide Level 16.1 MEQ/L Anion Gap 14 MEQ/L Estimat Glomerular Filtration Rate 22 ML/MIN Assessment and Plan Problem List: (1) Acute on chronic renal failure ICD Codes: N17.9 - Acute kidney failure, unspecified; N18.9 - Chronic kidney disease, unspecified Status: Acute (2) SAH (subarachnoid hemorrhage) ICD Codes: I60.9 - Nontraumatic subarachnoid hemorrhage, unspecified Status: Acute (3) Debility ICD Codes: R53.81 - Other malaise (4) UTI (urinary tract infection) ICD Codes: N39.0 - Urinary tract infection, site not specified Status: Acute (5) Non-ST elevation IL (NSTEMI) ICD Codes: I21.4 - Non-ST elevation (NSTEMI) myocardial infarction Status: Acute (6) Acute renal failure ICD Codes: N17.9 - Acute kidney failure, unspecified Status: Acute (7) Prostate cancer metastatic to bone ICD Codes: C61 - Malignant neoplasm of prostate; C79.51 - Secondary malignant neoplasm of bone Status: Chronic (8) MIRYAM (acute kidney injury) ICD Codes: N17.9 - Acute kidney failure, unspecified (9) Chronic systolic heart failure ICD Codes: I50.22 - Chronic systolic (congestive) heart failure Status: Chronic Assessment and Plan 1) Multiple falls Deconditioning/UTI? 2) Subacute hemorrhage on CT of the head 3) Elevated troponins Denies chest pain Downtrending Possible type 2 Not a candidate for invasive, con't medical management 4) Hospice consult as he's currently under their care 5) No further cardiovascular work up Will see Gregor Sage DO November 21, 2017 12:10
[2017-11-21] MEDS: metroNIDAZOLE 500 MG INJ 100 ML IV SCH ×2 (12:53→22:45)
--- NOTE | 2017-11-21 13:33 | ECHRPT ---
Indication: NSTEMI CONCLUSIONS Normal left ventricular size. Wall thickness is normal. The left ventricular systolic function is low normal with an estimated ejection fraction in the rang e of 50- 55%. There is trace to mild tricuspid valve regurgitation. The pulmonary valve is not well visualized. A moderate left sided pleural effusion is noted. There is a trivial pericardial effusion present. BP: / HR: Rhythm: MEASUREMENTS (Male / Female) Normal Values Technical Quality: 2D ECHO LV Diastolic Diameter PLAX 5.0 cm 4.2 - 5.9 / 3.9 - 5.3 cm LV Systolic Diameter PLAX 4.0 cm IVS Diastolic Thickness 1.4 cm 0.6 - 1.0 / 0.6 - 0.9 cm LVPW Diastolic Thickness 0.9 cm 0.6 - 1.0 / 0.6 - 0.9 cm LV Relative Wall Thickness 0.5 RV Internal Dim ED PLAX 2.3 cm M-MODE Aortic Root Diameter MM 3.9 cm AV Cusp Separation MM 2.1 cm DOPPLER Mitral E Point Velocity 59.2 cm/s Mitral A Point Velocity 76.0 cm/s Mitral E to A Ratio 0.8 TR Peak Velocity 365.0 cm/s TR Peak Gradient 53.3 mmHg FINDINGS LEFT VENTRICLE Normal left ventricular size. Wall thickness is normal. The left ventricular systolic function is low normal with an estimated ejection fraction in the rang e of 50- 55%. RIGHT VENTRICLE Normal right ventricular size and systolic function. LEFT ATRIUM The left atrial size is normal. RIGHT ATRIUM The right atrial size is normal. ATRIAL SEPTUM Normal atrial septal thickness without atrial level shunting by limited color doppler interrogation. AORTA The aortic root and proximal ascending aorta are normal in size on limited imaging. MITRAL VALVE Structurally normal mitral valve. No mitral valve stenosis or regurgitation. AORTIC VALVE Trileaflet aortic valve. No aortic valve stenosis or regurgitation. TRICUSPID VALVE There is trace to mild tricuspid valve regurgitation. PULMONARY VALVE The pulmonary valve is not well visualized. VESSELS The inferior vena cava is normal in size. PERICARDIUM A moderate left sided pleural effusion is noted. There is a trivial pericardial effusion present. Doc Naik MD, FACC (Electronically Signed) Final Date:21 Nov 2017 13:31
--- NOTE | 2017-11-21 15:09 | HHI.GIFU ---
Subjective Remarks Pt resting in bed, mother at bedside. Diarrhea persists. Pt not aware of any bleeding. Admits abd pain. Now is asking for colonoscopy b/c he thinks its a surgery that is going to fix him. (Anjana Cosby) Objective Vitals I&O Vital Signs Date Time Temp Pulse Resp B/P (MAP) Pulse Ox O2 Delivery O2 Flow Rate FiO2 11/21/17 12:06 97.9 75 17 99/55 (70) 94 11/21/17 08:15 94 Nasal Cannula 2.00 11/21/17 08:06 97.8 76 17 108/60 (76) 96 11/21/17 08:00 Room Air 2.00 11/21/17 08:00 78 11/21/17 04:00 84 11/21/17 04:00 98.9 85 19 125/59 (81) 94 11/21/17 00:59 81 11/21/17 00:00 Room Air 11/21/17 00:00 98.7 80 16 131/69 (89) 94 11/20/17 20:35 77 11/20/17 20:00 Room Air 11/20/17 20:00 98.0 79 18 130/68 (88) 94 11/20/17 16:00 98.1 74 18 142/76 (98) 95 I/O 11/20/17 11/20/17 11/20/17 11/21/17 11/21/17 11/21/17 06:59 14:59 22:59 06:59 14:59 22:59 Intake Total 1420 ml 480 ml 1240 ml Output Total 700 ml Balance 720 ml 480 ml 1240 ml Intake Oral 420 ml 480 ml 240 ml IV Total 1000 ml 1000 ml Drainage Total 700 ml # Bowel Movements 4 4 6 Laboratory Laboratory Tests Test 11/21/17 10:09 White Blood Count 15.6 Red Blood Count 4.27 Hemoglobin 10.4 Hematocrit 33.8 Mean Corpuscular Volume 79.2 Mean Corpuscular Hemoglobin 24.3 Mean Corpuscular Hemoglobin Concent 30.7 Red Cell Distribution Width 17.0 Platelet Count 321 Mean Platelet Volume 7.6 Neutrophils (%) (Auto) 89.0 Lymphocytes (%) (Auto) 3.7 Monocytes (%) (Auto) 7.1 Eosinophils (%) (Auto) 0.1 Basophils (%) (Auto) 0.1 Neutrophils # (Auto) 13.9 Lymphocytes # (Auto) 0.6 Monocytes # (Auto) 1.1 Eosinophils # (Auto) 0.0 Basophils # (Auto) 0.0 CBC Comment AUTO DIFF Differential Total Cells Counted 100 Neutrophils % (Manual) 54 Band Neutrophils % 38 Lymphocytes % 2 Monocytes % 4 Eosinophils % 2 Neutrophils # (Manual) 14.4 Differential Comment FINAL DIFF MANUAL Platelet Estimate NORMAL Platelet Morphology Comment NORMAL Blood Urea Nitrogen 41 Creatinine 2.99 Random Glucose 87 Calcium Level 7.8 Sodium Level 140 Potassium Level 3.8 Chloride Level 110 Carbon Dioxide Level 16.1 Anion Gap 14 Estimat Glomerular Filtration Rate 22 Date/Time Source Procedure Growth Status 11/17/17 11:15 Blood Peripheral Aerobic Blood Culture - Preliminary NO GROWTH IN 4 DAYS Resulted 11/17/17 11:15 Blood Peripheral Anaerobic Blood Culture - Preliminary NO GROWTH IN 4 DAYS Resulted 11/19/17 18:15 Stool Stool Cryptosporidium Exam Pending Resulted 11/19/17 18:15 Stool Stool Stool Pus (MIKEY) - Final NO WBC'S SEEN Resulted 11/19/17 18:15 Stool Stool Giardia Antigen (MIKEY) Pending Resulted 11/17/17 12:34 Urine Catheterized Urine Urine Culture - Final Enterococcus Faecalis Complete Imaging Last Impressions Abdomen/Pelvis CT 11/20/17 0000 Signed Impressions: CONCLUSION: Head CT 11/17/17 1106 Signed Impressions: Service Date/Time: Friday, November 17, 2017 13:09 - CONCLUSION: 1. Subtle increased density in the extra-axial right frontal mid to low convexities which may reflect subacute to chronic extra-axial blood products. 2. Moderate diffuse stable volume loss and periventricular small vessel ischemic white matter demyelination out of proportion to age. Gibson Wagner MD Chest X-Ray 11/17/17 1106 Signed Impressions: Service Date/Time: Friday, November 17, 2017 11:32 - CONCLUSION: 1. Minimal left lung base atelectasis. 2. Diffuse osseous metastatic disease. Gibson Wagner MD Physical Exam HEENT: Normocephalic; atraumatic CHEST: Even/unlabored CARDIAC: RRR ABDOMEN: Distended, soft, diffuse TTP, bowel sounds active EXTREMITIES: No clubbing, cyanosis, or edema. SKIN: Normal; no rash; no jaundice. FINISHER ACCORDION: mildly confused today (Anjana Cosby) Assessment and Plan Plan ASSESSMENT - Diarrhea with reports of hematochezia- states symptoms have been intermittent x 1 month Reports colonoscopy 1 months ago in [place], unsure of results C. Diff positive, epid negative- pt is poor historian, states possibly one previous episode of C. Diff. Denies recent abx, hospitalizations. CT abdomen and pelvis WO IV Contrast (11/20) --> Diffuse mesenteric edema and trace ascites. Diffuse circumferential sigmoid and rectal wall thickening. Although colonic wall thickening can be seen with hypoalbuminemia/mesenteric edema, this is limited to the sigmoid and rectum. - Anemia - multifactorial. hgb did drop from 10.2 to 8.8 EGD 06/2017 with finding peptic duodenitis, duodenal ulcers, gastritis. Pathology (duodenum) one fragment of duodenal mucosa with features consistent with peptic duodenitis, second fragment of necrotic tissue with acute inflammation consistent with ulcer ( gastric antrum) antral mucosa with mild active chronic gastritis and focal features suggestive of reactive gastropathy. - Stage 4 prostate cancer with bone metastasis, remote history of testicular cancer- Bilateral nephrostomy tubes - Elevated troponin- cardiology following 11/21/17 pt asking for colonoscopy "to fix" him. continued diarrhea, + c diff. HH improving. per RN calling asking for EGD and colonoscopy and upset re palliative care consult. says daughter is POA but no paperwork has been provided. d/w RN, attending. PLAN - await palliative care consult - PO vanc for c diff - Monitor labs - Supportive care - Further recommendations based on clinical course Pt has been seen and examined by myself and Dr. Bryson and this note is written on his behalf (Anjana Cosby) Physician Comments Patient seen and examined Agree with above Continue with current supportive care Monitor labs (Hayden Bryson MD) Anjana Cosby November 21, 2017 15:09 Hayden Bryson MD November 21, 2017 20:28
[2017-11-22] VITALS (11 sets, daily range): BP systolic 83–110; BP diastolic 50–69; PULSE 73–114; RESP 16–18; TEMP 97.4–98.3; O2SAT 90–95
[2017-11-22] MEDS: CHLORHEXIDINE GLUCONATE 2 % 1 PACK (2 CLOTHS) TOP SCH (04:00)
[2017-11-22] MEDS: metroNIDAZOLE 500 MG INJ 100 ML IV SCH ×2 (06:38→13:37)
[2017-11-22] MEDS: SODIUM CHLOR 0.9% 1000 ML INJ 1,000 ML IV SCH ×3 (06:38→17:56)
[2017-11-22] MEDS: INSULIN ASPART SUPPLEMENTAL SCALE SQ SCH ×4 (08:00→21:00)
[2017-11-22] MEDS ORDERED: SODIUM CHLORID 0.9% 500 ML INJ 500 ML IV ONE (08:30)
--- NOTE | 2017-11-22 08:55 | HHI.PR ---
Subjective Remarks iN BED , AT BEDSIDE. pATIENT AND WANTS EVERYTHING DONE PT STILL WITH DIARRHEA sTILL WITH ABD CRAMPS. nO T EATING MUCH nO APPETITE nO FEEVER RO CHILLS NEPHROSTOMY TUBE IS LEAKING FOLLOWS WITH dR Lockhart, WILL CONSULT Objective Vitals Vital Signs Date Time Temp Pulse Resp B/P (MAP) Pulse Ox O2 Delivery O2 Flow Rate FiO2 11/22/17 04:00 98.1 79 16 90/54 (66) 90 11/22/17 02:36 90/54 (66) 11/22/17 00:00 97.4 76 18 83/50 (61) 90 11/21/17 20:02 94 11/21/17 20:00 97.3 72 20 101/57 (72) 90 11/21/17 20:00 Room Air 11/21/17 16:00 97.7 74 17 102/56 (71) 95 11/21/17 16:00 82 11/21/17 12:06 97.9 75 17 99/55 (70) 94 11/21/17 12:00 79 I/O 11/21/17 11/21/17 11/21/17 11/22/17 11/22/17 11/22/17 07:00 15:00 23:00 07:00 15:00 23:00 Intake Total 1240 ml 1100 ml 1550 ml 120 ml Balance 1240 ml 1100 ml 1550 ml 120 ml Intake Oral 240 ml 550 ml 120 ml IV Total 1000 ml 1100 ml 1000 ml # Voids 0 # Bowel Movements 6 4 3 Result Diagram: 11/21/17 1009 11/21/17 1009 Imaging Last Impressions Abdomen/Pelvis CT 11/20/17 0000 Signed Impressions: CONCLUSION: 1. Interval development of moderate to severe right-sided hydronephrosis despi te double-J ureteral stent and percutaneous nephrostomy catheter in apparently good position. Hyperdense material in the inferior pole likely reflects debris/ calculi or hemorrhage which may result in catheter malfunction. Evaluation of t he existing pigtail cystostomy catheter and output is recommended. Catheter may need to be exchanged for improved patency. 2. Stable moderate to severe left-sided hydronephrosis following removal of le ft-sided nephrostomy catheter. 3. Diffuse mesenteric edema and trace ascites. 4. Diffuse circumferential sigmoid and rectal wall thickening. Although coloni c wall thickening can be seen with hypoalbuminemia/mesenteric edema, this is li mited to the sigmoid and rectum. Differential considerations include radiation- induced colitis/proctitis, infection and ischemic etiologies. 5. Redemonstration diffuse blastic osseous metastatic disease with interval pr ogression of retroperitoneal adenopathy. 6. Patchy right basilar airspace consolidation with very trace pleural effusio ns. Head CT 11/17/17 1106 Signed Impressions: Service Date/Time: Friday, November 17, 2017 13:09 - CONCLUSION: 1. Subtle increased density in the extra-axial right frontal mid to low convexities which may reflect subacute to chronic extra-axial blood products. 2. Moderate diffuse stable volume loss and periventricular small vessel ischemic white matter demyelination out of proportion to age. Gibson Wagner MD Chest X-Ray 11/17/17 1106 Signed Impressions: Service Date/Time: Friday, November 17, 2017 11:32 - CONCLUSION: 1. Minimal left lung base atelectasis. 2. Diffuse osseous metastatic disease. Gibson Wagner MD Objective Remarks GENERAL: CARDIOVASCULAR: Regular rate and rhythm. RESPIRATORY: No accessory muscle use. Clear to auscultation. Breath sounds equal bilaterally. GASTROINTESTINAL: Abdomen soft, non-tender, nondistended. Hepatic and splenic margins not palpable. MUSCULOSKELETAL: Extremities without clubbing, cyanosis, or edema. No obvious deformities. NEUROLOGICAL: Awake and alert. No obvious cranial nerve deficits. Motor grossly within normal limits. Five out of 5 muscle strength in the arms and legs. Normal speech. PSYCHIATRIC: Appropriate mood and affect; insight and judgment normal. A/P Problem List: (1) Acute metabolic encephalopathy ICD Code: G93.41 - Metabolic encephalopathy Status: Resolved (2) UTI (urinary tract infection) ICD Code: N39.0 - Urinary tract infection, site not specified Status: Acute (3) Delirium due to another medical condition ICD Code: F05 - Delirium due to known physiological condition Status: Acute (4) Debility ICD Code: R53.81 - Other malaise (5) Acute on chronic renal failure ICD Code: N17.9 - Acute kidney failure, unspecified; N18.9 - Chronic kidney disease, unspecified Status: Acute (6) SAH (subarachnoid hemorrhage) ICD Code: I60.9 - Nontraumatic subarachnoid hemorrhage, unspecified Status: Acute Assessment and Plan This is a 57-year-old male with presumed urosepsis, with hypotension altered mental status with recurrent frequent falls. Patient recently admitted with acute on chronic subarachnoid hemorrhage. CT shows subacute on chronic extra- axial collections of blood. Neurosurgery has been consulted. Plan by systems: Neurologic: Encephalopathy Anxiety disorder Depression Neuro checks per ICU protocol CT brain-Subtle increased density in the extra-axial right frontal mid to low convexities which may reflect subacute to chronic extra-axial blood products. Moderate diffuse stable volume loss and periventricular small vessel ischemic white matter demyelination out of proportion to age. Neurosurgery consulted- I discussed with Dr. Cabrera , neurosurgeon, who reviewed imaging and assessed patient, no surgical intervention required at this time Avoid sedatives Will hold escitalopram 10 mg/day, Haldol PRN, Ativan PRN home medications Respiratory: Maintain O2 sat greater than 92%. Provide O2 14 L/min nasal cannula Duo nebs every 4 hours as needed Cardiovascular: Chronic systolic heart failure CAD Hypertension BNP slightly elevated Trend troponin level. Troponins are trending down. Maintain MAP greater than 65 Hold carvedilol 12.5 twice daily, and Lasix 40 mg/day ( home medications) in the setting of hypotension Patient denies chest pain at this time Renal: Presumed urosepsis BPH Acute on chronic kidney disease Prostate cancer with metastasis Remote history of testicular cancer Bilateral nephrostomy tubes Hold Tamulosin in the setting of hypotension Last antibiotics fluconazole and Ceftin 10 day course 10/15/2017 for UTI -- Strict I/Os Restart home dose dilaudid PO for pain FEN/GI: Nausea Dehydration Heart healthy diet Patient normally takes omeprazole twice daily, continue PPI Received 2 L normal saline IV bolus in the ED Normal saline 84 cc/hour Creatinine 3.49, continue to monitor Alkaline phosphatase 170, no pain on palpation-consider gallbladder ultrasound Heme/ID: Leukocytosis, improving C. difficile colitis. UTI with Enterococcus faecalis pansensitive Follow-up urine and blood cultures Trend lactate DC Zosyn . Start ciprofloxacin Started Vanco po , continue Flagyl for C. difficile Monitor CBC Monitor electrolytes and replace as needed Endocrine: Glucose monitoring as need -- SSI GI: Bloody diarrhea. Monitor H&H and transfuse if need. Consulted GI. Patient is however refusing any procedures. With C. difficile colitis as above + C. difficile. other stool studies pending nephrostomy tube leaking consult his urology Dr Lockhart Prophylaxis: GI Prophylaxis Protonix DVT Prophylaxis -- SCDs Hold pharmacological DVT prophylaxis at this time. Lines: Peripheral IVs 2. Central line if indicated Dispo: This patient remains ill. DC when improved and cleared by consultants. Code Status Full Discussed Condition With Dr. Brenner, patient's mother. Patient is registered with [facility] hospice secondary to multiple medical comorbidities. Upon inquiry patient requests to remain full code and all aggressive measures to be instituted. Previously seen by palliative care Ms. Ayala. Hospice signed off GI consult as patient with bloody diarrhea. However patient is refusing further procedures. Consult palliative care. Patient is with hospice s oP and currently is full code his plans are for home with hospice? However patient decided full code and declined hospice at this time. Hospice signed off. Geraldine Escobar MD November 22, 2017 08:55
[2017-11-22] MEDS: SODIUM CHLORIDE 0.9% FLUSH 10 ML FLUSH IV FLUSH SCH (09:00)
[2017-11-22] MEDS: PANTOPRAZOLE SOD 40 MG DELAYED RELEASE TAB PO SCH (09:44)
[2017-11-22] MEDS: CIPROFLOXACIN 500 MG TAB PO SCH (09:44)
[2017-11-22] MEDS: VANCOMYCIN 500 MG VIAL (FOR ORAL USE ONLY) PO SCH ×3 (09:44→18:00)
--- NOTE | 2017-11-22 13:33 | HHI.GIFU ---
Subjective Remarks Pt very lethargic today Per RN has been sleeping most of the day RN states he has not been complaining of abdominal pain Pt with rectal bag collecting liquid green/brown stool (Ayesha Negrete) Objective Vitals I&O Vital Signs Date Time Temp Pulse Resp B/P (MAP) Pulse Ox O2 Delivery O2 Flow Rate FiO2 11/22/17 12:03 98.3 75 18 96/69 (78) 95 11/22/17 08:03 98.0 79 17 90/50 (63) 94 11/22/17 08:00 81 11/22/17 04:00 98.1 79 16 90/54 (66) 90 11/22/17 02:36 90/54 (66) 11/22/17 00:00 97.4 76 18 83/50 (61) 90 11/21/17 20:02 94 11/21/17 20:00 97.3 72 20 101/57 (72) 90 11/21/17 20:00 Room Air 11/21/17 16:00 97.7 74 17 102/56 (71) 95 11/21/17 16:00 82 I/O 11/21/17 11/21/17 11/21/17 11/22/17 11/22/17 11/22/17 07:00 15:00 23:00 07:00 15:00 23:00 Intake Total 1240 ml 1100 ml 1550 ml 120 ml Output Total 0 ml Balance 1240 ml 1100 ml 1550 ml 120 ml Intake Oral 240 ml 550 ml 120 ml IV Total 1000 ml 1100 ml 1000 ml Drainage Total 0 ml # Voids 0 # Bowel Movements 6 4 3 Laboratory Date/Time Source Procedure Growth Status 11/17/17 11:15 Blood Peripheral Aerobic Blood Culture - Final NO GROWTH IN 5 DAYS Complete 11/17/17 11:15 Blood Peripheral Anaerobic Blood Culture - Final NO GROWTH IN 5 DAYS Complete 11/19/17 18:15 Stool Stool Cryptosporidium Exam - Final NEGATIVE - NO CRYPTOSPORIDIUM ANTIGEN... Complete 11/19/17 18:15 Stool Stool Stool Pus (MIKEY) - Final NO WBC'S SEEN Complete 11/19/17 18:15 Stool Stool Giardia Antigen (MIKEY) - Final NEGATIVE - NO GIARDIA ANTIGEN DETECTE... Complete 11/17/17 12:34 Urine Catheterized Urine Urine Culture - Final Enterococcus Faecalis Complete Imaging Last Impressions Abdomen/Pelvis CT 11/20/17 0000 Signed Impressions: CONCLUSION: 1. Interval development of moderate to severe right-sided hydronephrosis despi te double-J ureteral stent and percutaneous nephrostomy catheter in apparently good position. Hyperdense material in the inferior pole likely reflects debris/ calculi or hemorrhage which may result in catheter malfunction. Evaluation of t he existing pigtail cystostomy catheter and output is recommended. Catheter may need to be exchanged for improved patency. 2. Stable moderate to severe left-sided hydronephrosis following removal of le ft-sided nephrostomy catheter. 3. Diffuse mesenteric edema and trace ascites. 4. Diffuse circumferential sigmoid and rectal wall thickening. Although coloni c wall thickening can be seen with hypoalbuminemia/mesenteric edema, this is li mited to the sigmoid and rectum. Differential considerations include radiation- induced colitis/proctitis, infection and ischemic etiologies. 5. Redemonstration diffuse blastic osseous metastatic disease with interval pr ogression of retroperitoneal adenopathy. 6. Patchy right basilar airspace consolidation with very trace pleural effusio ns. Head CT 11/17/17 1106 Signed Impressions: Service Date/Time: Friday, November 17, 2017 13:09 - CONCLUSION: 1. Subtle increased density in the extra-axial right frontal mid to low convexities which may reflect subacute to chronic extra-axial blood products. 2. Moderate diffuse stable volume loss and periventricular small vessel ischemic white matter demyelination out of proportion to age. Gibson Wagner MD Chest X-Ray 11/17/17 1106 Signed Impressions: Service Date/Time: Friday, November 17, 2017 11:32 - CONCLUSION: 1. Minimal left lung base atelectasis. 2. Diffuse osseous metastatic disease. Gibson Wagner MD Physical Exam HEENT: Normocephalic; atraumatic CHEST: Even/unlabored CARDIAC: RRR ABDOMEN: Nondistended, soft, nontender, bowel sounds active EXTREMITIES: No clubbing, cyanosis, or edema. SKIN: Normal; no rash; no jaundice. CARAMEL CUTTER HAND: Lethargic (Ayesha Negrete) Assessment and Plan Plan ASSESSMENT - Diarrhea with reports of hematochezia- states symptoms have been intermittent x 1 month Reports colonoscopy 1 months ago in [place], unsure of results C. Diff positive, epid negative- pt is poor historian, states possibly one previous episode of C. Diff. Denies recent abx, hospitalizations. CT abdomen and pelvis WO IV Contrast (11/20) --> Diffuse mesenteric edema and trace ascites. Diffuse circumferential sigmoid and rectal wall thickening. Although colonic wall thickening can be seen with hypoalbuminemia/mesenteric edema, this is limited to the sigmoid and rectum. - Anemia - multifactorial. hgb did drop from 10.2 to 8.8 EGD 06/2017 with finding peptic duodenitis, duodenal ulcers, gastritis. Pathology (duodenum) one fragment of duodenal mucosa with features consistent with peptic duodenitis, second fragment of necrotic tissue with acute inflammation consistent with ulcer ( gastric antrum) antral mucosa with mild active chronic gastritis and focal features suggestive of reactive gastropathy. - Stage 4 prostate cancer with bone metastasis, remote history of testicular cancer- Bilateral nephrostomy tubes - Elevated troponin- cardiology following 11/21/17 pt asking for colonoscopy "to fix" him. continued diarrhea, + c diff. HH improving. per RN calling asking for EGD and colonoscopy and upset re palliative care consult. says daughter is POA but no paperwork has been provided. d/w RN, attending. (11/22) Pt very lethargic today. Has rectal bag collecting liquid green/brown stool. Per RN he has not been complaining of abdominal pain today. Leukocytosis trending down, pt remains on oral Vancomycin and Flagyl, afebrile over night. Abdomen is soft. H/H is stable, no blood transfusion. Hospice consult pending. PLAN - Hospice consult pending - No indication for colonoscopy at this time, continue with oral Vanco and IV Flagyl abdomen appears less distended and more soft, leukocytosis improving - Not much to add from a GI standpoint, continue with current treatment for C. Diff - GI will sign off, please reconsult as needed Pt has been seen and examined by myself and Dr. Bryson and this note is written on his behalf (Ayesha Negrete) Physician Comments Patient seen and examined Agree with above Continue with current supportive care Monitor labs We will sign off (Hayden Bryson MD) Ayesha Negrete November 22, 2017 13:33 Hayden Bryson MD November 22, 2017 22:14
[2017-11-23] VITALS (10 sets, daily range): BP systolic 94–130; BP diastolic 52–69; PULSE 70–86; RESP 16–22; TEMP 97.1–98.4; O2SAT 91–95
[2017-11-23] MEDS: metroNIDAZOLE 500 MG INJ 100 ML IV SCH ×4 (00:11→23:01)
[2017-11-23] MEDS: SODIUM CHLORIDE 0.9% FLUSH 10 ML FLUSH IV FLUSH SCH ×3 (00:11→23:06)
[2017-11-23] MEDS: CIPROFLOXACIN 500 MG TAB PO SCH ×3 (00:11→22:38)
[2017-11-23] MEDS: SODIUM CHLOR 0.9% 1000 ML INJ 1,000 ML IV SCH ×3 (00:12→13:50)
[2017-11-23] MEDS: VANCOMYCIN 500 MG VIAL (FOR ORAL USE ONLY) PO SCH ×5 (00:12→23:06)
[2017-11-23] MEDS: CHLORHEXIDINE GLUCONATE 2 % 1 PACK (2 CLOTHS) TOP SCH (04:00)
[2017-11-23] MEDS: INSULIN ASPART SUPPLEMENTAL SCALE SQ SCH ×4 (08:00→21:00)
[2017-11-23] MEDS: PANTOPRAZOLE SOD 40 MG DELAYED RELEASE TAB PO SCH (09:00)
[2017-11-23 14:42] LABS: AUTOMATED NEUTROPHIL # 22.8 TH/MM3 (1.8-7.7); BASOPHIL # 0.1 TH/MM3 (0-0.2); BASOPHIL % 0.2 % (0.0-2.0); EOSINOPHIL # 0.3 TH/MM3 (0-0.4); HEMATOCRIT 34.3 % (39.0-51.0); HEMOGLOBIN 10.3 GM/DL (13.0-17.0); LYMPH % 5.2 % (9.0-44.0); LYMPHOCYTE # 1.3 TH/MM3 (1.0-4.8); MEAN CELL VOLUME 77.4 FL (80.0-100.0); MEAN CORPUSCULAR HEMOGLOBIN 23.3 PG (27.0-34.0); MEAN CORPUSCULAR HGB CONC 30.1 % (32.0-36.0); MEAN PLATELET VOLUME 7.2 FL (7.0-11.0); MONOCYTE # 0.8 TH/MM3 (0-0.9); NEUT % 90.6 % (16.0-70.0); PLATELET COUNT 351 TH/MM3 (150-450); RED BLOOD COUNT 4.43 MIL/MM3 (4.50-5.90); WHITE BLOOD COUNT 25.2 TH/MM3 (4.0-11.0)
[2017-11-23 15:11] LABS: ALBUMIN 1.1 GM/DL (3.4-5.0); ALKALINE PHOSPHATASE 118 U/L (45-117); ALT (GPT) LESS THAN 6 U/L (12-78); AST (GOT) 11 U/L (15-37); BICARBONATE 14.5 MEQ/L (21.0-32.0); BLOOD UREA NITROGEN 43 MG/DL (7-18); CALCIUM 7.3 MG/DL (8.5-10.1); CALCIUM-PROTEIN CORRECTED 8.5 MG/DL (8.5-10.1); CHLORIDE 111 MEQ/L (98-107); CREATININE 3.33 MG/DL (0.60-1.30); GLOMERULAR FILTRATION RATE 19 ML/MIN (>89); GLUCOSE,RANDOM 74 MG/DL (74-106); SODIUM (NA) 141 MEQ/L (136-145); TOTAL BILIRUBIN ADULT 0.3 MG/DL (0.2-1.0); TOTAL PROTEIN 4.9 GM/DL (6.4-8.2)
[2017-11-23 15:20] LABS: BANDS 23 % (0-6); LYMPHOCYTES 5 % (9-44); METAMYELOCYTES 1 % (0-1); MONOCYTES 3 % (0-8); NEUTROPHIL # MANUAL DIFF 23.2 TH/MM3 (1.8-7.7); POLYS (SEG NEUTROPHILS) 68 % (16-70)
[2017-11-23] MEDS ORDERED: HYDROmorphone HCL PF 2 MG/ML VIAL ONE ×2 (17:07→18:01)
[2017-11-23] MEDS ORDERED: SODIUM BICARBONATE 650 MG TAB PO ONE (17:15)
[2017-11-23] MEDS ORDERED: LORazepam 2 MG/ML VIAL ONE (17:21)
--- NOTE | 2017-11-23 18:20 | PD.RAD ---
Post Procedure Progress Note Pre Procedure Diagnosis: (1) Prostate CA (2) Bilateral ureteral obstruction Post Procedure Diagnosis: (1) Prostate CA (2) Bilateral ureteral obstruction Procedure Date: November 23, 2017 Supervising Radiologist: Alessandro Pope Proceduralist/Assist: Dennis Winn, RT(R), Tierra Smith, RT(R) Anesthesia: Local, Analgesia, Conscious Sedation Plan of Activity Patient to Unit: PACU Patient Condition: Good See PACS Report for procedural detail/treatment Drainage Procedure Procedure 1 Imaging Guidance: Fluoroscopy, Ultrasound Side: Left Procedure Type: Nephrostomy Procedure: Placement [place]: 10 Fluid Description: Yellow, Red Procedure 2 Imaging Guidance: Fluoroscopy Procedure Type: Nephrostomy, Ureteral Stent Procedure: Exchange Drainage: [place] drainage Findings: Left tube dislodged in sub-q tissues. New tube placed with U/S and fluoro guidance. Right PCNU heavily calcified but changed over a wire. Alessandro Pope MD November 23, 2017 18:20
--- NOTE | 2017-11-23 18:23 | HHI.PR ---
Subjective Remarks Patient seen this afternoon after nephrostomy tube placement. Discussed with interventional radiologist. Urine clear with sediment, no pus. Patient is somnolent, wakes up for exam, however confused secondary to periprocedural meds. Objective Vital Signs Date Time Temp Pulse Resp B/P (MAP) Pulse Ox O2 Delivery O2 Flow Rate FiO2 11/23/17 17:38 Nasal Cannula 3.00 11/23/17 16:03 98.4 81 17 100/55 (70) 95 11/23/17 12:13 98.3 78 18 94/52 (66) 95 11/23/17 10:03 92 Nasal Cannula 3.00 11/23/17 08:03 98.0 82 18 117/59 (78) 91 11/23/17 04:00 97.5 77 18 106/59 (75) 92 11/23/17 00:00 77 11/23/17 00:00 97.1 78 16 120/63 (82) 95 11/22/17 20:00 97.8 76 16 110/57 (74) 94 11/22/17 20:00 Room Air 11/22/17 20:00 76 I/O 11/22/17 11/22/17 11/22/17 11/23/17 11/23/17 11/23/17 06:59 14:59 22:59 06:59 14:59 22:59 Intake Total 120 ml 480 ml 1580 ml Output Total 0 ml 125 ml 300 ml Balance 120 ml 480 ml 1455 ml -300 ml Intake Oral 120 ml 480 ml 480 ml IV Total 1100 ml Output Urine Total 125 ml Drainage Total 0 ml 300 ml # Voids 0 3 # Bowel Movements 3 Result Diagram: 11/23/17 1353 11/23/17 1353 Objective Remarks GENERAL: patient lying in bed. Somnolent, wakes up for exam. SKIN: Warm and dry. HEAD: Normocephalic. EYES: No scleral icterus. No injection or drainage. NECK: Supple, trachea midline. No JVD. CARDIOVASCULAR: Regular rate and rhythm without murmurs, gallops, or rubs. RESPIRATORY: Breath sounds equal bilaterally. No accessory muscle use. GASTROINTESTINAL: Abdomen soft, non-tender, nondistended. MUSCULOSKELETAL: No cyanosis, or edema. BACK: Nontender without obvious deformity. No CVA tenderness. A/P Assessment and Plan == 11/23/17 Patient with worsening renal function, and has been sent for nephrostomy tube. Appreciate IR assistance. Also with suspected severe sepsis, anion gap metabolic acidosis, worsening white count of 25. Suspect severe C. difficile infection. Will start by mouth vancomycin, continue IV metronidazole, Cipro and consult ID. Will give p.o. bicarb. Check lactic acid and urinalysis for infection/ketones. This is a 57-year-old male with presumed urosepsis, with hypotension altered mental status with recurrent frequent falls. Patient recently admitted with acute on chronic subarachnoid hemorrhage. CT shows subacute on chronic extra- axial collections of blood. Neurosurgery has been consulted. Plan by systems: Neurologic: //Encephalopathy //Anxiety disorder //Depression Neuro checks per ICU protocol CT brain-Subtle increased density in the extra-axial right frontal mid to low convexities which may reflect subacute to chronic extra-axial blood products. Moderate diffuse stable volume loss and periventricular small vessel ischemic white matter demyelination out of proportion to age. Neurosurgery consulted- I discussed with Dr. Cabrera , neurosurgeon, who reviewed imaging and assessed patient, no surgical intervention required at this time Avoid sedatives Will hold escitalopram 10 mg/day, Haldol PRN, Ativan PRN home medications Respiratory: Maintain O2 sat greater than 92%. Provide O2 14 L/min nasal cannula Duo nebs every 4 hours as needed //Cardiovascular: //Chronic systolic heart failure //CAD //Hypertension BNP slightly elevated Trend troponin level. Troponins are trending down. Maintain MAP greater than 65 Hold carvedilol 12.5 twice daily, and Lasix 40 mg/day ( home medications) in the setting of hypotension Patient denies chest pain at this time Renal: //Presumed urosepsis //BPH //Acute on chronic kidney disease //Prostate cancer with metastasis //Remote history of testicular cancer //Bilateral nephrostomy tubes Hold Tamulosin in the setting of hypotension Last antibiotics fluconazole and Ceftin 10 day course 10/15/2017 for UTI -- Strict I/Os Restart home dose dilaudid PO for pain FEN/GI: //Nausea //Dehydration //Heart healthy diet Patient normally takes omeprazole twice daily, continue PPI Received 2 L normal saline IV bolus in the ED Normal saline 84 cc/hour Creatinine 3.49, continue to monitor Alkaline phosphatase 170, no pain on palpation-consider gallbladder ultrasound Heme/ID: //Leukocytosis, improving //C. difficile colitis. //UTI with Enterococcus faecalis pansensitive //stage IV prostate cancer with bone metastasis, previous testicular cancer, status post treatment. Follow-up urine and blood cultures Trend lactate DC Zosyn . Start ciprofloxacin Started Vanco po , continue Flagyl for C. difficile Monitor CBC Monitor electrolytes and replace as needed = 11/23. Sepsis. Pending lactic acid. Start treatment for severe C. difficile. Consult ID for treatment of severe C. difficile. Endocrine: Glucose monitoring as need -- SSI GI: //Bloody diarrhea. Monitor H&H and transfuse if need. Consulted GI. Patient is however refusing any procedures. //With C. difficile colitis as above + C. difficile. other stool studies pending = 11/23. Severe C. difficile infection. Will start by mouth vancomycin. Continue IV metronidazole as well. // nephrostomy tube leaking consult his urology Dr Lockhart //Prophylaxis: GI Prophylaxis Protonix DVT Prophylaxis -- SCDs Hold pharmacological DVT prophylaxis at this time. Lines: Peripheral IVs 2. Central line if indicated Discharge Planning This patient remains ill. DC when improved and cleared by consultants. Code Status Full Discussed Condition With Dr. Brenner, patient's mother. Patient is registered with [facility] hospice secondary to multiple medical comorbidities. Upon inquiry patient requests to remain full code and all aggressive measures to be instituted. Previously seen by palliative care Ms. Ayala. Hospice signed off GI consult as patient with bloody diarrhea. However patient is refusing further procedures. Consult palliative care. Patient is with hospice s oP and currently is full code his plans are for home with hospice? However patient decided full code and declined hospice at this time. Hospice signed off. Bennie Meyer MD November 23, 2017 18:23
[2017-11-23] MEDS ORDERED: *HYDROmorphone PF 0.5 MG/0.5 ML PERIprocedure ONLY ONE (18:58)
[2017-11-23] MEDS ORDERED: IOHEXOL 350 MG/ML 50 ML BTL (for RAD DIAG) OTHER ONE (19:08)
[2017-11-23 21:54] LABS: AUTOMATED NEUTROPHIL # 23.8 TH/MM3 (1.8-7.7); BASOPHIL % 0.1 % (0.0-2.0); EOSINOPHIL # 0.3 TH/MM3 (0-0.4); EOSINOPHIL % 1.2 % (0.0-4.0); HEMATOCRIT 34.3 % (39.0-51.0); HEMOGLOBIN 10.3 GM/DL (13.0-17.0); LYMPH % 5.2 % (9.0-44.0); LYMPHOCYTE # 1.4 TH/MM3 (1.0-4.8); MEAN CELL VOLUME 78.6 FL (80.0-100.0); MEAN CORPUSCULAR HEMOGLOBIN 23.6 PG (27.0-34.0); MEAN PLATELET VOLUME 7.4 FL (7.0-11.0); MONO % 3.4 % (0.0-8.0); MONOCYTE # 0.9 TH/MM3 (0-0.9); NEUT % 90.1 % (16.0-70.0); PLATELET COUNT 336 TH/MM3 (150-450); RED BLOOD COUNT 4.36 MIL/MM3 (4.50-5.90); RED CELL DISTRIBUTION WIDTH 17.5 % (11.6-17.2); WHITE BLOOD COUNT 26.5 TH/MM3 (4.0-11.0)
[2017-11-23 22:13] LABS: ALBUMIN 1.1 GM/DL (3.4-5.0); BICARBONATE 11.3 MEQ/L (21.0-32.0); CALCIUM 7.5 MG/DL (8.5-10.1); CREATININE 3.16 MG/DL (0.60-1.30)
[2017-11-23 22:14] LABS: PHOSPHORUS 3.4 MG/DL (2.5-4.9)
[2017-11-23 22:16] LABS: BILIRUBIN, URINE NEG (NEG); BLOOD, URINE LARGE (NEG); GLUCOSE,URINE NEG (NEG); KETONE, URINE NEG (NEG); NITRITE,URINE NEG (NEG); PH, URINE 5.5 (5.0-8.5); URINE COLOR YELLOW (YELLW/STRAW); URINE LEUKOCYTE ESTERASE LARGE (NEG)
[2017-11-23 22:25] LABS: BILIRUBIN, URINE NEG (NEG); BLOOD, URINE LARGE (NEG); GLUCOSE,URINE NEG (NEG); KETONE, URINE NEG (NEG); NITRITE,URINE NEG (NEG); URINE COLOR YELLOW (YELLW/STRAW); URINE LEUKOCYTE ESTERASE LARGE (NEG); WHITE BLOOD CELL CLUMPS MANY
[2017-11-23 22:32] LABS: BANDS 12 % (0-6); LYMPHOCYTES 2 % (9-44); MONOCYTES 2 % (0-8); MYELOCYTES 1 % (0-0); NEUTROPHIL # MANUAL DIFF 25.2 TH/MM3 (1.8-7.7); POLYS (SEG NEUTROPHILS) 82 % (16-70)
[2017-11-23 22:33] LABS: TOXIC GRANULATION 2+ (NORMAL); TOXIC VACUOLATION PRESENT (NONE SEEN)
[2017-11-23 22:34] LABS: ACANTHOCYTES OCC (NORMAL); BURR CELLS 1+ (NORMAL)
[2017-11-23] MEDS: POTASSIUM CHLORIDE IV SCH ×3 (22:48)
[2017-11-23] MEDS: DEXTROSE 5% IV SCH ×3 (22:48)
[2017-11-23] MEDS: SODIUM BICARBONATE IV SCH ×3 (22:48)
[2017-11-23] MEDS: [UNRECOGNIZED DRUG - OTHER] IV SCH ×3 (22:48)
[2017-11-24] VITALS (8 sets, daily range): BP systolic 109–131; BP diastolic 64–75; PULSE 73–84; RESP 16–20; TEMP 97.7–98.5; O2SAT 94–97
[2017-11-24] MEDS: CHLORHEXIDINE GLUCONATE 2 % 1 PACK (2 CLOTHS) TOP SCH (04:00)
[2017-11-24] MEDS: POTASSIUM CHLORIDE IV SCH ×9 (07:46→22:39)
[2017-11-24] MEDS: [UNRECOGNIZED DRUG - OTHER] IV SCH ×9 (07:46→22:39)
[2017-11-24] MEDS: SODIUM BICARBONATE IV SCH ×9 (07:46→22:39)
[2017-11-24] MEDS: DEXTROSE 5% IV SCH ×9 (07:46→22:39)
[2017-11-24] MEDS: metroNIDAZOLE 500 MG INJ 100 ML IV SCH ×3 (07:48→21:19)
[2017-11-24] MEDS: INSULIN ASPART SUPPLEMENTAL SCALE SQ SCH ×4 (08:00→21:00)
[2017-11-24 08:27] LABS: ALBUMIN 1.1 GM/DL (3.4-5.0); BICARBONATE 15.8 MEQ/L (21.0-32.0); CALCIUM 6.9 MG/DL (8.5-10.1); CALCIUM-PROTEIN CORRECTED 8.2 MG/DL (8.5-10.1); CREATININE 2.65 MG/DL (0.60-1.30); TOTAL BILIRUBIN ADULT 0.4 MG/DL (0.2-1.0); TOTAL PROTEIN 4.7 GM/DL (6.4-8.2)
[2017-11-24] MEDS: SODIUM CHLORIDE 0.9% FLUSH 10 ML FLUSH IV FLUSH SCH ×2 (09:00→21:19)
[2017-11-24] MEDS: PANTOPRAZOLE SOD 40 MG DELAYED RELEASE TAB PO SCH (09:29)
[2017-11-24] MEDS: VANCOMYCIN 500 MG VIAL (FOR ORAL USE ONLY) PO SCH ×4 (09:29→21:18)
[2017-11-24] MEDS: CIPROFLOXACIN 500 MG TAB PO SCH ×2 (09:29→21:19)
[2017-11-24] MEDS: HYDROmorphone HCL 4 MG TAB PO PRN ×3 (09:44→23:33)
--- NOTE | 2017-11-24 10:36 | PD.CONS ---
History of Present Illness Service Infectious disease Consult Requested By Dr Carmen Meyer Reason for Consult Evaluate patient with C. difficile colitis Primary Care Physician Unknown Diagnoses: History of Present Illness Patient seen and examined. Records reviewed. Patient is a 57-year-old male, with known metastatic prostate cancer, has had progression of the prostate cancer into the bladder causing obstructive uropathy , requiring placement of bilateral nephrostomy tube, presented to the hospital because of frequent falling, and some right shoulder pain. He apparently has been registered under [facility]. He was initially in the ICU, and was treated as urosepsis. His urine culture grew Enterococcus faecalis. Patient started having problem with bloody diarrhea, and apparently has refused GI workup. Stool for C. difficile came back positive. Patient currently has resolution of the bleeding. He continues to have some diarrhea, and currently he is still looks really liquidy and somewhat light yellow in color. He has mild abdominal pain. He is afebrile. Patient had replacement of his bilateral nephrostomy tubes yesterday. His CAT scan on admission did show evidence of hydronephrosis, and there is also some thickening of the rectal region. His WBC has been rising. Patient is currently on Cipro, IV Flagyl, and p.o. vancomycin. is currently at bedside, and patient apparently has had very minimal p.o. intake. Patient stated he has no appetite. There is been no nausea or vomiting. He denies any respiratory complaint. Infectious disease consultation has been requested to evaluate the patient. Review of Systems Constitutional: COMPLAINS OF: Fatigue, Change in appetite, DENIES: Fever, Chills Eyes: DENIES: Eye pain Ears, nose, mouth, throat: DENIES: Nasal discharge, Oral lesions, Throat pain, Sinus Pain Respiratory: DENIES: Cough, Shortness of breath Cardiovascular: DENIES: Chest pain, Palpitations, Lower Extremity Edema Gastrointestinal: COMPLAINS OF: Abdominal pain, Diarrhea, DENIES: Nausea, Vomiting, Difficulty Swallowing Integumentary: DENIES: Rash Neurologic: DENIES: Headache Psychiatric: DENIES: Hallucinations Past Family Social History Allergies: Coded Allergies: glyburide (Verified Allergy, Severe, RASH, 11/17/17) amlodipine (Verified Allergy, Unknown, 11/17/17) rhabdomyolysis atorvastatin (Verified Allergy, Unknown, 11/17/17) rhabdomyolysis metformin (Verified Allergy, Unknown, Rash, 11/17/17) pravastatin (Verified Allergy, Unknown, 11/17/17) rhabdomyolysis simvastatin (Verified Allergy, Unknown, 11/17/17) rhabdomyolysis Past Medical History Insulin-dependent diabetes mellitus, 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 Hypertension CAD History of osteomyelitis left foot Past Surgical History Left foot surgery for osteomyelitis Cardiac catheterization with stent placement in 2007 Surgery for testicular cancer Placement of bilateral nephrostomy tubes Active Ordered Medications Current Medications Medications (Trade) Dose Ordered Sig/Jerzy Route Start Time Stop Time Status Last Admin (NS Flush) 2 ml UNSCH PRN IV FLUSH 11/17/17 14:45 (NS Flush) 2 ml BID IV FLUSH 11/17/17 21:00 11/24/17 09:00 (Tylenol) 650 mg Q6H PRN PO 11/17/17 14:45 11/19/17 05:30 (Protonix) 40 mg DAILY PO 11/18/17 09:00 11/24/17 09:29 (Duoneb Neb) 1 ampule Q4HR NEB PRN INH 11/17/17 14:45 ([facility] Nursing Information) 1 Q361D XX 11/17/17 14:45 (Chlorhexidine 2% Cloth) Taper DAILY@04 TOP 11/18/17 04:00 11/14/18 03:59 11/19/17 00:40 (Chlorhexidine 2% Cloth) 3 pack UNSCH PRN TOP 11/17/17 14:45 (Milk Of Magnesia Liq) 30 ml Q12H PRN PO 11/17/17 14:45 11/19/17 04:12 (Senokot) 17.2 mg Q12H PRN PO 11/17/17 14:45 (Dulcolax Supp) 10 mg DAILY PRN RECTAL 11/17/17 14:45 (Lactulose Liq) 30 ml DAILY PRN PO 11/17/17 14:45 (D50w (Vial) Inj) 50 ml UNSCH PRN IV PUSH 11/17/17 15:00 (Glucagon Inj) 1 mg UNSCH PRN OTHER 11/17/17 15:00 (NovoLOG SUPPLEMENTAL SCALE) 1 ACHS SLIDING SCALE SQ 11/17/17 17:00 11/18/17 20:26 (Zofran Odt) 4 mg Q6H PRN SL 11/17/17 15:00 11/20/17 14:25 (Dilaudid) 6 mg Q4HR PRN PO 11/19/17 10:00 11/24/17 09:44 (Pill Splitter) 1 ea UNSCH PRN OTHER 11/19/17 12:30 (Cipro) 500 mg Q12HR PO 11/20/17 21:00 11/24/17 09:29 Metronidazole 100 ml @ 100 mls/hr Q8H IV 11/21/17 13:00 11/24/17 07:48 (VANCOMYCIN for oral use only) 500 mg QID PO 11/23/17 21:00 11/24/17 09:29 Sodium Bicarbonate 100 meq/Potassium Chloride 20 meq/ Dextrose 1,110 ml @ 125 mls/hr Q8H53M IV 11/23/17 20:00 11/24/17 07:46 Family History Noncontributory Social History No smoking No alcohol abuse No illicit drug Physical Exam Vital Signs Vital Signs Date Time Temp Pulse Resp B/P (MAP) Pulse Ox O2 Delivery O2 Flow Rate FiO2 11/24/17 09:18 94 Nasal Cannula 3.00 11/24/17 04:00 98.2 76 20 119/71 (87) 94 11/24/17 04:00 79 11/24/17 00:00 84 11/24/17 00:00 98.0 80 20 131/64 (86) 95 11/23/17 20:00 Nasal Cannula 2.00 11/23/17 20:00 97.9 80 22 130/69 (89) 94 11/23/17 20:00 76 11/23/17 19:14 75 16 109/68 (82) 92 Nasal Cannula 3 11/23/17 19:00 79 16 105/65 (78) 93 Nasal Cannula 3 11/23/17 18:45 77 16 123/70 (87) 91 Nasal Cannula 3 11/23/17 18:39 99.0 78 16 122/66 (84) 92 Nasal Cannula 3 11/23/17 17:38 Nasal Cannula 3.00 11/23/17 16:03 98.4 81 17 100/55 (70) 95 11/23/17 16:00 70 11/23/17 12:13 98.3 78 18 94/52 (66) 95 5/25/18 12:00 73 Physical Exam GENERAL: Patient is a well-nourished, well-developed male, awake and alert, not in respiratory distress. SKIN: Cool and dry. No generalized rash, no ecchymoses and no evidence of embolic lesions. HEAD: Atraumatic. Normocephalic. No temporal wasting, or tenderness. EYES: [place] conjunctiva. No petechia or hemorrhage. Pupils equal, round and reactive to light. Extraocular movements full and intact. No scleral icterus. No injection or drainage. EARS, NOSE AND THROAT: Nose without bleeding or purulent nasal discharge. No sinus tenderness. Dry oral mucosa, some white coating on his tongue NECK: Trachea midline. Supple and not tender, no meningeal signs CARDIOVASCULAR: Regular rate and rhythm. No murmurs, rubs or gallops heard RESPIRATORY: Clear to auscultation. Breath sounds equal bilaterally. No rales , wheezing or rhonchi ABDOMEN: Soft, mild tenderness in lower quadrants, mildly distended. Bowel sounds present and normoactive. No guarding. No rebound. No organomegaly. EXTREMITIES: No clubbing, cyanosis, or edema. No joint effusion, has good ROM. No calf tenderness. Well perfused and warm. NEUROLOGICAL: Awake and alert. Cranial nerves grossly intact. Motor grossly within normal limits. PSYCHIATRIC: Cooperative, moaning a lot during my exam LINE: No evidence of infection Laboratory Laboratory Tests Test 11/23/17 13:53 11/23/17 18:50 11/23/17 18:55 11/23/17 22:00 White Blood Count 25.2 26.5 Red Blood Count 4.43 4.36 Hemoglobin 10.3 10.3 Hematocrit 34.3 34.3 Mean Corpuscular Volume 77.4 78.6 Mean Corpuscular Hemoglobin 23.3 23.6 Mean Corpuscular Hemoglobin Concent 30.1 30.0 Red Cell Distribution Width 18.0 17.5 Platelet Count 351 336 Mean Platelet Volume 7.2 7.4 Neutrophils (%) (Auto) 90.6 90.1 Lymphocytes (%) (Auto) 5.2 5.2 Monocytes (%) (Auto) 3.0 3.4 Eosinophils (%) (Auto) 1.0 1.2 Basophils (%) (Auto) 0.2 0.1 Neutrophils # (Auto) 22.8 23.8 Lymphocytes # (Auto) 1.3 1.4 Monocytes # (Auto) 0.8 0.9 Eosinophils # (Auto) 0.3 0.3 Basophils # (Auto) 0.1 0.0 CBC Comment AUTO DIFF AUTO DIFF Differential Total Cells Counted 100 100 Neutrophils % (Manual) 68 82 Band Neutrophils % 23 12 Lymphocytes % 5 2 Monocytes % 3 2 Neutrophils # (Manual) 23.2 25.2 Metamyelocytes 1 Differential Comment FINAL DIFF MANUAL FINAL DIFF MANUAL Platelet Estimate HIGH NORMAL Platelet Morphology Comment NORMAL NORMAL Blood Urea Nitrogen 43 44 Creatinine 3.33 3.16 Random Glucose 74 48 Total Protein 4.9 Albumin 1.1 1.1 Calcium Level 7.3 7.5 Alkaline Phosphatase 118 Aspartate Amino Transf (AST/SGOT) 11 Alanine Aminotransferase (ALT/SGPT) LESS THAN 6 Total Bilirubin 0.3 Sodium Level 141 137 Potassium Level 3.4 3.8 Chloride Level 111 111 Carbon Dioxide Level 14.5 11.3 Anion Gap 16 15 Estimat Glomerular Filtration Rate 19 20 Protein Corrected Calcium 8.5 B-Type Natriuretic Peptide 138 Urine Color YELLOW Urine Turbidity HAZY Urine pH 5.5 Urine Specific Guin 1.014 Urine Protein 30 Urine Glucose (UA) NEG Urine Ketones NEG Urine Occult Blood LARGE Urine Nitrite NEG Urine Bilirubin NEG Urine Urobilinogen LESS THAN 2.0 Urine Leukocyte Esterase LARGE Urine RBC Urine WBC Urine WBC Clumps MANY Microscopic Urinalysis Comment CULTURE INDICATED Eosinophils % 1 Myelocytes 1 Toxic Granulation 2+ Toxic Vacuolation PRESENT Sami Cells 1+ Acanthocytes OCC Phosphorus Level 3.4 Magnesium Level 2.0 Lactic Acid Level 1.1 Blood Gas Puncture Site RT RADIAL Blood Gas Patient Temperature 98.6 Blood Gas HCO3 13 Blood Gas Base Excess -11.9 Blood Gas Oxygen Saturation 92 Arterial Blood pH 7.31 Arterial Blood Partial Pressure CO2 27 Arterial Blood Partial Pressure O2 72 Arterial Blood Oxygen Content 13.5 Arterial Blood Carboxyhemoglobin 1.1 Arterial Blood Methemoglobin 1.3 Blood Gas Hemoglobin 10.4 Oxygen Delivery Device NASAL CANNULA Blood Gas Liter Flow 3 Test 11/24/17 07:19 Blood Urea Nitrogen 39 Creatinine 2.65 Random Glucose 144 Total Protein 4.7 Albumin 1.1 Calcium Level 6.9 Alkaline Phosphatase 120 Aspartate Amino Transf (AST/SGOT) 13 Alanine Aminotransferase (ALT/SGPT) 6 Total Bilirubin 0.4 Sodium Level 140 Potassium Level 3.7 Chloride Level 112 Carbon Dioxide Level 15.8 Anion Gap 12 Estimat Glomerular Filtration Rate 25 Protein Corrected Calcium 8.2 Date/Time Source Procedure Growth Status 11/17/17 11:15 Blood Peripheral Aerobic Blood Culture - Final NO GROWTH IN 5 DAYS Complete 11/17/17 11:15 Blood Peripheral Anaerobic Blood Culture - Final NO GROWTH IN 5 DAYS Complete 11/19/17 18:15 Stool Stool Cryptosporidium Exam - Final NEGATIVE - NO CRYPTOSPORIDIUM ANTIGEN... Complete 11/19/17 18:15 Stool Stool Stool Pus (MIKEY) - Final NO WBC'S SEEN Complete 11/19/17 18:15 Stool Stool Giardia Antigen (MIKEY) - Final NEGATIVE - NO GIARDIA ANTIGEN DETECTE... Complete 11/23/17 18:50 Urine Clean Catch Urine Culture Pending Received Result Diagram: 11/23/17 1855 11/24/17 0719 Imaging RADIOLOGY STUDIES/FILMS REVIEWED Abdomen/Pelvis CT 11/20/17 0000 Signed Impressions: CONCLUSION: 1. Interval development of moderate to severe right-sided hydronephrosis despi te double-J ureteral stent and percutaneous nephrostomy catheter in apparently good position. Hyperdense material in the inferior pole likely reflects debris/ calculi or hemorrhage which may result in catheter malfunction. Evaluation of t he existing pigtail cystostomy catheter and output is recommended. Catheter may need to be exchanged for improved patency. 2. Stable moderate to severe left-sided hydronephrosis following removal of le ft-sided nephrostomy catheter. 3. Diffuse mesenteric edema and trace ascites. 4. Diffuse circumferential sigmoid and rectal wall thickening. Although coloni c wall thickening can be seen with hypoalbuminemia/mesenteric edema, this is li mited to the sigmoid and rectum. Differential considerations include radiation- induced colitis/proctitis, infection and ischemic etiologies. 5. Redemonstration diffuse blastic osseous metastatic disease with interval pr ogression of retroperitoneal adenopathy. 6. Patchy right basilar airspace consolidation with very trace pleural effusio ns. Head CT 11/17/17 1106 Signed Impressions: Service Date/Time: Friday, November 17, 2017 13:09 - CONCLUSION: 1. Subtle increased density in the extra-axial right frontal mid to low convexities which may reflect subacute to chronic extra-axial blood products. 2. Moderate diffuse stable volume loss and periventricular small vessel ischemic white matter demyelination out of proportion to age. Gibson Wagner MD Chest X-Ray 11/17/17 1106 Signed Impressions: Service Date/Time: Friday, November 17, 2017 11:32 - CONCLUSION: 1. Minimal left lung base atelectasis. 2. Diffuse osseous metastatic disease. Gibson Wagner MD Assessment and Plan Assessment and Plan IMPRESSION UTI, has bilateral nephrostomy tubes in place -Status post replacement of nephrostomy -Last CT with bilateral hydronephrosis C. difficile colitis Metastatic prostate cancer Renal insufficiency, likely related to his obstruction Leukocytosis worsening RECOMMENDATION Obtain 2 blood cultures today Agree with getting urine sample from both nephrostomy tubes We will repeat stool for C. difficile Continue treatment for C. difficile, IV Flagyl and p.o. Vanco He is currently on Cipro and I will continue this for now Add Diflucan Follow CBC Follow cultures and adjust antibiotics accordingly Monitor progress I will follow along with you Thank you for this consultation Safia Jara MD November 24, 2017 10:36
[2017-11-24] MEDS: FLUCONAZOLE 100 MG TAB PO SCH (11:30)
--- NOTE | 2017-11-24 12:09 | HHI.PR ---
Subjective Remarks Patient says he is feeling all right. Denies any chest pain or shortness of breath. Denies nausea or vomiting. He denies any pain. He says he needs to urinate. Objective Vital Signs Date Time Temp Pulse Resp B/P (MAP) Pulse Ox O2 Delivery O2 Flow Rate FiO2 11/24/17 09:18 94 Nasal Cannula 3.00 11/24/17 04:00 98.2 76 20 119/71 (87) 94 11/24/17 04:00 79 11/24/17 00:00 84 11/24/17 00:00 98.0 80 20 131/64 (86) 95 11/23/17 20:00 Nasal Cannula 2.00 11/23/17 20:00 97.9 80 22 130/69 (89) 94 11/23/17 20:00 76 11/23/17 19:14 75 16 109/68 (82) 92 Nasal Cannula 3 11/23/17 19:00 79 16 105/65 (78) 93 Nasal Cannula 3 11/23/17 18:45 77 16 123/70 (87) 91 Nasal Cannula 3 11/23/17 18:39 99.0 78 16 122/66 (84) 92 Nasal Cannula 3 11/23/17 17:38 Nasal Cannula 3.00 11/23/17 16:03 98.4 81 17 100/55 (70) 95 11/23/17 16:00 70 11/23/17 12:13 98.3 78 18 94/52 (66) 95 I/O 11/23/17 11/23/17 11/23/17 11/24/17 11/24/17 11/24/17 06:59 14:59 22:59 06:59 14:59 22:59 Intake Total 1580 ml 1200 ml Output Total 125 ml 300 ml Balance 1455 ml -300 ml 1200 ml Intake Oral 480 ml IV Total 1100 ml 1200 ml Output Urine Total 125 ml Drainage Total 300 ml # Bowel Movements 1 Result Diagram: 11/23/17 1855 11/24/17 0719 Objective Remarks GENERAL: patient lying in bed. Awake, alert. SKIN: Warm and dry. HEAD: Normocephalic. EYES: No scleral icterus. No injection or drainage. NECK: Supple, trachea midline. No JVD. CARDIOVASCULAR: Regular rate and rhythm without murmurs, gallops, or rubs. RESPIRATORY: Breath sounds equal bilaterally. No accessory muscle use. GASTROINTESTINAL: Abdomen soft, non-tender, nondistended. MUSCULOSKELETAL: No cyanosis, or edema. Bilateral nephrostomy tubes with translucent urine. BACK: Nontender without obvious deformity. No CVA tenderness. A/P Assessment and Plan == 11/24/17 //AK I. Improving renal function. Creatinine 2.6 from 3.0 yesterday. Bilateral nephrostomy tubes. Appreciate IR assistance. Continue to monitor. //Non-gap metabolic acidosis. Continues with bicarbonate of 16. Likely secondary to renal disease. Continue fluids with bicarb. //Severe sepsis. Vitals are stable but leukocytosis continues . continue antibiotics as per ID. ID is started fluconazole for possible fungal UTI. Cultures ordered and pending. Appreciate assistance. This is a 57-year-old male with presumed urosepsis, with hypotension altered mental status with recurrent frequent falls. Patient recently admitted with acute on chronic subarachnoid hemorrhage. CT shows subacute on chronic extra- axial collections of blood. Neurosurgery has been consulted. Plan by systems: Neurologic: //Encephalopathy //Anxiety disorder //Depression Neuro checks per ICU protocol CT brain-Subtle increased density in the extra-axial right frontal mid to low convexities which may reflect subacute to chronic extra-axial blood products. Moderate diffuse stable volume loss and periventricular small vessel ischemic white matter demyelination out of proportion to age. Neurosurgery consulted- I discussed with Dr. Cabrera , neurosurgeon, who reviewed imaging and assessed patient, no surgical intervention required at this time Avoid sedatives Will hold escitalopram 10 mg/day, Haldol PRN, Ativan PRN home medications Respiratory: Maintain O2 sat greater than 92%. Provide O2 14 L/min nasal cannula Duo nebs every 4 hours as needed //Cardiovascular: //Chronic systolic heart failure //CAD //Hypertension BNP slightly elevated Trend troponin level. Troponins are trending down. Maintain MAP greater than 65 Hold carvedilol 12.5 twice daily, and Lasix 40 mg/day ( home medications) in the setting of hypotension Patient denies chest pain at this time Renal: //Presumed urosepsis //BPH //Acute on chronic kidney disease //Prostate cancer with metastasis //Remote history of testicular cancer //Bilateral nephrostomy tubes Hold Tamulosin in the setting of hypotension Last antibiotics fluconazole and Ceftin 10 day course 10/15/2017 for UTI -- Strict I/Os Restart home dose dilaudid PO for pain FEN/GI: //Nausea //Dehydration //Heart healthy diet Patient normally takes omeprazole twice daily, continue PPI Received 2 L normal saline IV bolus in the ED Normal saline 84 cc/hour Creatinine 3.49, continue to monitor Alkaline phosphatase 170, no pain on palpation-consider gallbladder ultrasound Heme/ID: //Leukocytosis, improving //C. difficile colitis. //UTI with Enterococcus faecalis pansensitive //stage IV prostate cancer with bone metastasis, previous testicular cancer, status post treatment. Follow-up urine and blood cultures Trend lactate DC Zosyn . Start ciprofloxacin Started Vanco po , continue Flagyl for C. difficile Monitor CBC Monitor electrolytes and replace as needed = 11/23. Sepsis. Pending lactic acid. Start treatment for severe C. difficile. Consult ID for treatment of severe C. difficile. Endocrine: Glucose monitoring as need -- SSI GI: //Bloody diarrhea. Monitor H&H and transfuse if need. Consulted GI. Patient is however refusing any procedures. //With C. difficile colitis as above + C. difficile. other stool studies pending = 11/23. Severe C. difficile infection. Will start by mouth vancomycin. Continue IV metronidazole as well. // nephrostomy tube leaking consult his urology Dr Lockhart //Prophylaxis: GI Prophylaxis Protonix DVT Prophylaxis -- SCDs Hold pharmacological DVT prophylaxis at this time. Lines: Peripheral IVs 2. Central line if indicated Discharge Planning This patient remains ill. DC when improved and cleared by consultants. Code Status Full Discussed Condition With Dr. Brenner, patient's mother. Patient is registered with [facility] hospice secondary to multiple medical comorbidities. Upon inquiry patient requests to remain full code and all aggressive measures to be instituted. Previously seen by palliative care Ms. Ayala. Hospice signed off GI consult as patient with bloody diarrhea. However patient is refusing further procedures. Consult palliative care. Patient is with hospice s oP and currently is full code his plans are for home with hospice? However patient decided full code and declined hospice at this time. Hospice signed off. Bennie Meyer MD November 24, 2017 12:09
[2017-11-25] VITALS (11 sets, daily range): BP systolic 126–147; BP diastolic 72–90; PULSE 80–98; RESP 16–21; TEMP 97.9–98.8; O2SAT 91–95
[2017-11-25] MEDS: CHLORHEXIDINE GLUCONATE 2 % 1 PACK (2 CLOTHS) TOP SCH (03:32)
[2017-11-25] MEDS: SODIUM BICARBONATE IV SCH ×6 (03:33→17:29)
[2017-11-25] MEDS: POTASSIUM CHLORIDE IV SCH ×6 (03:33→17:29)
[2017-11-25] MEDS: [UNRECOGNIZED DRUG - OTHER] IV SCH ×6 (03:33→17:29)
[2017-11-25] MEDS: DEXTROSE 5% IV SCH ×6 (03:33→17:29)
[2017-11-25] MEDS: metroNIDAZOLE 500 MG INJ 100 ML IV SCH ×3 (04:07→22:40)
[2017-11-25] MEDS: HYDROmorphone HCL 4 MG TAB PO PRN ×4 (05:00→21:08)
[2017-11-25 07:44] LABS: AUTOMATED NEUTROPHIL # 10.5 TH/MM3 (1.8-7.7); BASOPHIL # 0.1 TH/MM3 (0-0.2); BASOPHIL % 0.4 % (0.0-2.0); EOSINOPHIL # 0.3 TH/MM3 (0-0.4); EOSINOPHIL % 2.7 % (0.0-4.0); HEMATOCRIT 32.4 % (39.0-51.0); HEMOGLOBIN 10.3 GM/DL (13.0-17.0); LYMPH % 8.5 % (9.0-44.0); LYMPHOCYTE # 1.1 TH/MM3 (1.0-4.8); MEAN CELL VOLUME 76.5 FL (80.0-100.0); MEAN CORPUSCULAR HEMOGLOBIN 24.2 PG (27.0-34.0); MEAN CORPUSCULAR HGB CONC 31.7 % (32.0-36.0); MEAN PLATELET VOLUME 7.2 FL (7.0-11.0); MONO % 5.4 % (0.0-8.0); MONOCYTE # 0.7 TH/MM3 (0-0.9); PLATELET COUNT 253 TH/MM3 (150-450); RED BLOOD COUNT 4.24 MIL/MM3 (4.50-5.90); RED CELL DISTRIBUTION WIDTH 17.4 % (11.6-17.2); WHITE BLOOD COUNT 12.6 TH/MM3 (4.0-11.0)
[2017-11-25] MEDS: VANCOMYCIN 500 MG VIAL (FOR ORAL USE ONLY) PO SCH ×4 (08:26→21:08)
[2017-11-25] MEDS: SODIUM CHLORIDE 0.9% FLUSH 10 ML FLUSH IV FLUSH SCH ×2 (08:26→21:07)
[2017-11-25] MEDS: CIPROFLOXACIN 500 MG TAB PO SCH ×2 (08:26→21:23)
[2017-11-25] MEDS: PANTOPRAZOLE SOD 40 MG DELAYED RELEASE TAB PO SCH (08:26)
[2017-11-25] MEDS: FLUCONAZOLE 100 MG TAB PO SCH (08:33)
[2017-11-25 08:36] LABS: BICARBONATE 23.2 MEQ/L (21.0-32.0); CREATININE 1.84 MG/DL (0.60-1.30); MAGNESIUM 1.6 MG/DL (1.5-2.5); PHOSPHORUS 1.4 MG/DL (2.5-4.9)
[2017-11-25 08:56] LABS: BANDS 8 % (0-6); CALCIUM 6.6 MG/DL (8.5-10.1); LYMPHOCYTES 1 % (9-44); MONOCYTES 4 % (0-8); MYELOCYTES 1 % (0-0); POLYS (SEG NEUTROPHILS) 86 % (16-70)
[2017-11-25] MEDS ORDERED: POTASSIUM PHOSPHATE INJ 15 MMOL in SODIUM CHLORIDE 0.9% INJ 150 ML IV ONE (09:30)
[2017-11-25] MEDS: INSULIN ASPART SUPPLEMENTAL SCALE SQ SCH ×4 (10:24→21:00)
--- NOTE | 2017-11-25 17:22 | HHI.PR ---
Subjective Remarks Patient reports abdominal distention. Denies any chest pain or shortness of breath. Abdominal distention improves after sitting the patient up, and he burps extensively. Objective Vital Signs Date Time Temp Pulse Resp B/P (MAP) Pulse Ox O2 Delivery O2 Flow Rate FiO2 11/25/17 16:53 97.9 86 21 136/76 (96) 95 11/25/17 12:00 98.6 80 18 147/78 (101) 95 11/25/17 08:44 98.2 86 18 126/76 (93) 91 11/25/17 04:00 83 11/25/17 03:24 98.5 83 18 129/90 (103) 95 11/25/17 03:23 Nasal Cannula 2.00 11/25/17 00:00 81 11/25/17 00:00 98.8 82 18 126/72 (90) 95 11/24/17 21:00 Nasal Cannula 2.00 11/24/17 20:00 73 11/24/17 20:00 98.5 78 16 109/68 (82) 96 11/24/17 17:44 96 Nasal Cannula 3.00 I/O 11/24/17 11/24/17 11/24/17 11/25/17 11/25/17 11/25/17 06:59 14:59 22:59 06:59 14:59 22:59 Intake Total 1200 ml 0 ml 1119 ml Output Total 650 ml 900 ml Balance 1200 ml -650 ml 219 ml Intake Oral 0 ml 120 ml IV Total 1200 ml 999 ml Drainage Total 650 ml 900 ml Result Diagram: 11/25/17 0652 11/25/17 0652 Objective Remarks GENERAL: patient lying in bed. Awake, alert. SKIN: Warm and dry. HEAD: Normocephalic. EYES: No scleral icterus. No injection or drainage. NECK: Supple, trachea midline. No JVD. CARDIOVASCULAR: Regular rate and rhythm without murmurs, gallops, or rubs. RESPIRATORY: Breath sounds equal bilaterally. No accessory muscle use. GASTROINTESTINAL: Abdomen initially distended, hyperresonant, however improves after sitting up and burping. Nontender. No rebound or guarding. Positive bowel sounds MUSCULOSKELETAL: No cyanosis, or edema. Bilateral nephrostomy tubes with translucent urine. BACK: Nontender without obvious deformity. No CVA tenderness. A/P Assessment and Plan == 11/25/17 //MIRYAM. Improving renal function. Creatinine 1.8 from 2.6 yesterday. Bilateral nephrostomy tubes. Appreciate IR assistance. Continue to monitor. //Non-gap metabolic acidosis. Appears to have resolved. Decrease IV fluids with bicarb. //Severe sepsis. Leukocytosis improving 12.6 today. 10 units antibiotics and antifungals as per ID. Repeat cultures pending. Appreciate assistance. //Hypophosphatemia, hypokalemia. Replace and monitor //Abdominal distention. Improves somewhat with burping. Nontender. Continues with rectal tube with good output. Will check KUB. This is a 57-year-old male with presumed urosepsis, with hypotension altered mental status with recurrent frequent falls. Patient recently admitted with acute on chronic subarachnoid hemorrhage. CT shows subacute on chronic extra- axial collections of blood. Neurosurgery has been consulted. Plan by systems: Neurologic: //Encephalopathy //Anxiety disorder //Depression Neuro checks per ICU protocol CT brain-Subtle increased density in the extra-axial right frontal mid to low convexities which may reflect subacute to chronic extra-axial blood products. Moderate diffuse stable volume loss and periventricular small vessel ischemic white matter demyelination out of proportion to age. Neurosurgery consulted- I discussed with Dr. Cabrera , neurosurgeon, who reviewed imaging and assessed patient, no surgical intervention required at this time Avoid sedatives Will hold escitalopram 10 mg/day, Haldol PRN, Ativan PRN home medications Respiratory: Maintain O2 sat greater than 92%. Provide O2 14 L/min nasal cannula Duo nebs every 4 hours as needed //Cardiovascular: //Chronic systolic heart failure //CAD //Hypertension BNP slightly elevated Trend troponin level. Troponins are trending down. Maintain MAP greater than 65 Hold carvedilol 12.5 twice daily, and Lasix 40 mg/day ( home medications) in the setting of hypotension Patient denies chest pain at this time Renal: //Presumed urosepsis //BPH //Acute on chronic kidney disease //Prostate cancer with metastasis //Remote history of testicular cancer //Bilateral nephrostomy tubes Hold Tamulosin in the setting of hypotension Last antibiotics fluconazole and Ceftin 10 day course 10/15/2017 for UTI -- Strict I/Os Restart home dose dilaudid PO for pain FEN/GI: //Nausea //Dehydration //Heart healthy diet Patient normally takes omeprazole twice daily, continue PPI Received 2 L normal saline IV bolus in the ED Normal saline 84 cc/hour Creatinine 3.49, continue to monitor Alkaline phosphatase 170, no pain on palpation-consider gallbladder ultrasound Heme/ID: //Leukocytosis, improving //C. difficile colitis. //UTI with Enterococcus faecalis pansensitive //stage IV prostate cancer with bone metastasis, previous testicular cancer, status post treatment. Follow-up urine and blood cultures Trend lactate DC Zosyn . Start ciprofloxacin Started Vanco po , continue Flagyl for C. difficile Monitor CBC Monitor electrolytes and replace as needed = 11/23. Sepsis. Pending lactic acid. Start treatment for severe C. difficile. Consult ID for treatment of severe C. difficile. Endocrine: Glucose monitoring as need -- SSI GI: //Bloody diarrhea. Monitor H&H and transfuse if need. Consulted GI. Patient is however refusing any procedures. //With C. difficile colitis as above + C. difficile. other stool studies pending = 11/23. Severe C. difficile infection. Will start by mouth vancomycin. Continue IV metronidazole as well. // nephrostomy tube leaking consult his urology Dr Lockhart //Prophylaxis: GI Prophylaxis Protonix DVT Prophylaxis -- SCDs Hold pharmacological DVT prophylaxis at this time. Lines: Peripheral IVs 2. Central line if indicated Discharge Planning This patient remains ill. DC when improved and cleared by consultants. Code Status Full Discussed Condition With Dr. Brenner, patient's mother. Patient is registered with [facility] hospice secondary to multiple medical comorbidities. Upon inquiry patient requests to remain full code and all aggressive measures to be instituted. Previously seen by palliative care Ms. Ayala. Hospice signed off GI consult as patient with bloody diarrhea. However patient is refusing further procedures. Consult palliative care. Patient is with hospice s oP and currently is full code his plans are for home with hospice? However patient decided full code and declined hospice at this time. Hospice signed off. Bennie Meyer MD November 25, 2017 17:22
--- NOTE | 2017-11-25 18:27 | RADRPT ---
EXAM DATE: 11/25/2017 6:19 PM EDT AGE/SEX: 57 years / Male INDICATIONS: Distention CLINICAL DATA: This is the patient's initial encounter. Patient reports that signs and symptoms have been present for 2 weeks and indicates a pain score of 10/10. MEDICAL/SURGICAL HISTORY: . Cardiovascular disease. Carcinoma, testicular. Carcinoma, prostatic . Diabetes. Hypertension. None. . Renal stents COMPARISON: CT of the abdomen and pelvis 11/20/2017. FINDINGS: 2 supine frontal views of the abdomen reveal a nephroureteral catheter on the right which appears in good position. A left nephrostomy tube noted which is also in good position. No calculi observed. Ci rcumferential wall thickening involving the transverse colon. There is resulting thumbprinting. This appearance is slightly more pronounced from the prior CT. Gas distended loops of small bowel noted wi thin the mid abdomen. No gross dilatation. No gross pneumoperitoneum in this supine position patient. Diffuse blastic metastases throughout the visualized bony structures. CONCLUSION: 1. Right nephroureteral catheter and left nephrostomy tube appear in good position. 2. Slight worsening of the wall thickening involving the transverse colon. 3. Blastic metastases. Electronically signed by: Werner Lawrence MD 11/25/2017 6:25 PM EDT
[2017-11-25] MEDS ORDERED: ALBUMIN 25% INJ 100 ML IV ONE (20:00)
[2017-11-25] MEDS ORDERED: SODIUM CHLORIDE 0.9% IRRIGATION SCH (22:00)
[2017-11-25] MEDS ORDERED: IRR IRRIGATION SCH (22:00)
[2017-11-25] MEDS ORDERED: VANCOMYCIN IRRIGATION SCH (22:00)
[2017-11-25] MEDS: ONDANSETRON ODT 4 MG TAB SL PRN (22:41)
[2017-11-25] MEDS: VANCOMYCIN INJ 500 MG in SODIUM CHLORIDE 0.9% IRR BTL 250 ML IRRIGATION SCH (23:27)
[2017-11-26] VITALS (14 sets, daily range): BP systolic 132–148; BP diastolic 68–93; PULSE 79–92; RESP 13–22; TEMP 97.6–98.6; O2SAT 88–100
[2017-11-26] MEDS ORDERED: SODIUM CHLORIDE 0.9% IRRIGATION SCH ×3
[2017-11-26] MEDS ORDERED: VANCOMYCIN IRRIGATION SCH ×3
[2017-11-26] MEDS ORDERED: IRR IRRIGATION SCH ×3
[2017-11-26] MEDS: HYDROmorphone HCL 4 MG TAB PO PRN ×5 (02:19→21:02)
[2017-11-26] MEDS: CHLORHEXIDINE GLUCONATE 2 % 1 PACK (2 CLOTHS) TOP SCH (04:00)
[2017-11-26] MEDS: [UNRECOGNIZED DRUG - OTHER] IV SCH ×6 (05:15→20:42)
[2017-11-26] MEDS: POTASSIUM CHLORIDE IV SCH ×6 (05:15→20:42)
[2017-11-26] MEDS: metroNIDAZOLE 500 MG INJ 100 ML IV SCH ×3 (05:15→20:35)
[2017-11-26] MEDS: DEXTROSE 5% IV SCH ×6 (05:15→20:42)
[2017-11-26] MEDS: SODIUM BICARBONATE IV SCH ×6 (05:15→20:42)
[2017-11-26] MEDS: VANCOMYCIN INJ 500 MG in SODIUM CHLORIDE 0.9% IRR BTL 250 ML IRRIGATION SCH ×3 (05:16→16:42)
[2017-11-26] MEDS: ONDANSETRON ODT 4 MG TAB SL PRN (06:48)
[2017-11-26] MEDS: INSULIN ASPART SUPPLEMENTAL SCALE SQ SCH ×4 (08:00→20:37)
[2017-11-26 08:30] LABS: AUTOMATED NEUTROPHIL # 8.6 TH/MM3 (1.8-7.7); BASOPHIL % 0.4 % (0.0-2.0); EOSINOPHIL # 0.3 TH/MM3 (0-0.4); EOSINOPHIL % 2.7 % (0.0-4.0); HEMATOCRIT 30.9 % (39.0-51.0); HEMOGLOBIN 10.5 GM/DL (13.0-17.0); LYMPH % 8.4 % (9.0-44.0); LYMPHOCYTE # 0.9 TH/MM3 (1.0-4.8); MEAN CELL VOLUME 74.3 FL (80.0-100.0); MEAN CORPUSCULAR HEMOGLOBIN 25.1 PG (27.0-34.0); MEAN CORPUSCULAR HGB CONC 33.8 % (32.0-36.0); MEAN PLATELET VOLUME 6.9 FL (7.0-11.0); MONO % 7.7 % (0.0-8.0); MONOCYTE # 0.8 TH/MM3 (0-0.9); NEUT % 80.8 % (16.0-70.0); PLATELET COUNT 229 TH/MM3 (150-450); RED BLOOD COUNT 4.16 MIL/MM3 (4.50-5.90); RED CELL DISTRIBUTION WIDTH 17.4 % (11.6-17.2); WHITE BLOOD COUNT 10.7 TH/MM3 (4.0-11.0)
--- NOTE | 2017-11-26 09:09 | HHI.IDPN ---
Subjective Subjective Remarks Patient is a 57-year-old male, with known metastatic prostate cancer, has had progression of the prostate cancer into the bladder causing obstructive uropathy , requiring placement of bilateral nephrostomy tube, presented to the hospital because of frequent falling, and some right shoulder pain. He apparently has been registered under [facility] hospice. He was initially in the ICU, and was treated as urosepsis. His urine culture grew Enterococcus faecalis. Patient started having problem with bloody diarrhea, and apparently has refused GI workup. Stool for C. difficile came back positive. Patient currently has resolution of the bleeding. He continues to have some diarrhea, and currently he is still looks really liquidy and somewhat light yellow in color. He has mild abdominal pain. He is afebrile. Patient had replacement of his bilateral nephrostomy tubes yesterday. His CAT scan on admission did show evidence of hydronephrosis, and there is also some thickening of the rectal region. His WBC has been rising. Patient is currently on Cipro, IV Flagyl, and p.o. vancomycin. is currently at bedside, and patient apparently has had very minimal p.o. intake. Patient stated he has no appetite. There is been no nausea or vomiting. He denies any respiratory complaint. Infectious disease consultation has been requested to evaluate the patient. Notes reviewed D/W Dr Meyer Transferred to ICU yesterday C/O worsening abdominal pain yesterday AXR with increased bowel, wall thickening Still with diarrhea Afebrile WBC decreasing Creatinine improving S/P replacement bit nephrostomy 11/23 Lactic acid normal Repeat UC with yeast Very poor po intake Antibiotics Flagyl IV PO vanco Vanco IR Cipro Diflucan Current Medications Medications (Trade) Dose Ordered Sig/Jerzy Route Start Time Stop Time Status Last Admin (NS Flush) 2 ml UNSCH PRN IV FLUSH 11/17/17 14:45 (NS Flush) 2 ml BID IV FLUSH 11/17/17 21:00 11/25/17 21:07 (Tylenol) 650 mg Q6H PRN PO 11/17/17 14:45 11/19/17 05:30 (Protonix) 40 mg DAILY PO 11/18/17 09:00 11/25/17 08:26 (Duoneb Neb) 1 ampule Q4HR NEB PRN INH 11/17/17 14:45 ([facility] Nursing Information) 1 Q361D XX 11/17/17 14:45 (Chlorhexidine 2% Cloth) Taper DAILY@04 TOP 11/18/17 04:00 11/14/18 03:59 11/26/17 04:00 (Chlorhexidine 2% Cloth) 3 pack UNSCH PRN TOP 11/17/17 14:45 (Milk Of Magnesia Liq) 30 ml Q12H PRN PO 11/17/17 14:45 11/19/17 04:12 (Senokot) 17.2 mg Q12H PRN PO 11/17/17 14:45 (Dulcolax Supp) 10 mg DAILY PRN RECTAL 11/17/17 14:45 (Lactulose Liq) 30 ml DAILY PRN PO 11/17/17 14:45 (D50w (Vial) Inj) 50 ml UNSCH PRN IV PUSH 11/17/17 15:00 (Glucagon Inj) 1 mg UNSCH PRN OTHER 11/17/17 15:00 (NovoLOG SUPPLEMENTAL SCALE) 1 ACHS SLIDING SCALE SQ 11/17/17 17:00 11/25/17 19:22 (Zofran Odt) 4 mg Q6H PRN SL 11/17/17 15:00 11/26/17 06:48 (Dilaudid) 6 mg Q4HR PRN PO 11/19/17 10:00 11/26/17 06:16 (Pill Splitter) 1 ea UNSCH PRN OTHER 11/19/17 12:30 (Cipro) 500 mg Q12HR PO 11/20/17 21:00 11/25/17 21:23 Metronidazole 100 ml @ 100 mls/hr Q8H IV 11/21/17 13:00 11/26/17 05:15 (VANCOMYCIN for oral use only) 500 mg QID PO 11/23/17 21:00 11/25/17 21:08 Sodium Bicarbonate 100 meq/Potassium Chloride 20 meq/ Dextrose 1,110 ml @ 75 mls/hr [id number] IV 11/23/17 20:00 11/26/17 05:15 (Diflucan) 100 mg DAILY PO 11/24/17 10:30 11/25/17 08:33 Vancomycin HCl 500 mg/Sodium Chloride 255 ml @ 0 mls/hr Q6HR IRRIGATION 11/26/17 00:00 11/26/17 05:16 Lines No evidence of infection Past Medical History Insulin-dependent diabetes mellitus, 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 Hypertension CAD History of osteomyelitis left foot Past Surgical History Left foot surgery for osteomyelitis Cardiac catheterization with stent placement in 2007 Surgery for testicular cancer Placement of bilateral nephrostomy tubes Allergies: Coded Allergies: glyburide (Verified Allergy, Severe, RASH, 11/17/17) amlodipine (Verified Allergy, Unknown, 11/17/17) rhabdomyolysis atorvastatin (Verified Allergy, Unknown, 11/17/17) rhabdomyolysis metformin (Verified Allergy, Unknown, Rash, 11/17/17) pravastatin (Verified Allergy, Unknown, 11/17/17) rhabdomyolysis simvastatin (Verified Allergy, Unknown, 11/17/17) rhabdomyolysis Objective . Vital Signs Date Time Temp Pulse Resp B/P (MAP) Pulse Ox O2 Delivery O2 Flow Rate FiO2 11/26/17 08:30 94 Nasal Cannula 2.00 11/26/17 07:00 94 Nasal Cannula 2.00 50 11/26/17 06:00 81 11/26/17 04:00 79 11/26/17 04:00 98.6 79 14 142/80 (100) 95 11/26/17 02:00 89 11/26/17 00:00 84 11/26/17 00:00 97.6 84 16 139/82 (101) 95 11/25/17 22:35 Nasal Cannula 2.00 11/25/17 22:00 98 11/25/17 20:00 87 11/25/17 20:00 Nasal Cannula 2.00 11/25/17 20:00 98.0 87 16 142/88 (106) 94 11/25/17 20:00 Nasal Cannula 2.00 11/25/17 17:19 94 Nasal Cannula 2.00 11/25/17 16:53 97.9 86 21 136/76 (96) 95 11/25/17 16:00 89 11/25/17 12:00 88 11/25/17 12:00 98.6 80 18 147/78 (101) 95 . Laboratory Tests Test 11/25/17 06:52 11/26/17 07:55 White Blood Count 12.6 TH/MM3 10.7 TH/MM3 Red Blood Count 4.24 MIL/MM3 4.16 MIL/MM3 Hemoglobin 10.3 GM/DL 10.5 GM/DL Hematocrit 32.4 % 30.9 % Mean Corpuscular Volume 76.5 FL 74.3 FL Mean Corpuscular Hemoglobin 24.2 PG 25.1 PG Mean Corpuscular Hemoglobin Concent 31.7 % 33.8 % Red Cell Distribution Width 17.4 % 17.4 % Platelet Count 253 TH/MM3 229 TH/MM3 Mean Platelet Volume 7.2 FL 6.9 FL Neutrophils (%) (Auto) 83.0 % 80.8 % Lymphocytes (%) (Auto) 8.5 % 8.4 % Monocytes (%) (Auto) 5.4 % 7.7 % Eosinophils (%) (Auto) 2.7 % 2.7 % Basophils (%) (Auto) 0.4 % 0.4 % Neutrophils # (Auto) 10.5 TH/MM3 8.6 TH/MM3 Lymphocytes # (Auto) 1.1 TH/MM3 0.9 TH/MM3 Monocytes # (Auto) 0.7 TH/MM3 0.8 TH/MM3 Eosinophils # (Auto) 0.3 TH/MM3 0.3 TH/MM3 Basophils # (Auto) 0.1 TH/MM3 0.0 TH/MM3 CBC Comment AUTO DIFF AUTO DIFF Differential Total Cells Counted 100 Neutrophils % (Manual) 86 % Band Neutrophils % 8 % Lymphocytes % 1 % Monocytes % 4 % Neutrophils # (Manual) 12.0 TH/MM3 Myelocytes 1 % Differential Comment FINAL DIFF MANUAL Platelet Estimate NORMAL Platelet Morphology Comment NORMAL Laboratory Tests Test 11/25/17 06:52 11/25/17 20:35 11/26/17 07:55 Blood Urea Nitrogen 27 MG/DL Creatinine 1.84 MG/DL Random Glucose 189 MG/DL Albumin 1.0 GM/DL Calcium Level 6.6 MG/DL Phosphorus Level 1.4 MG/DL Magnesium Level 1.6 MG/DL Sodium Level 139 MEQ/L Potassium Level 3.3 MEQ/L Chloride Level 108 MEQ/L Carbon Dioxide Level 23.2 MEQ/L Anion Gap 8 MEQ/L Estimat Glomerular Filtration Rate 38 ML/MIN Lactic Acid Level 1.6 mmol/L Microbiology Date/Time Source Procedure Growth Status 11/24/17 11:47 Blood Peripheral Aerobic Blood Culture - Preliminary NO GROWTH IN 1 DAY Resulted 11/24/17 11:47 Blood Peripheral Anaerobic Blood Culture - Preliminary NO GROWTH IN 1 DAY Resulted 11/24/17 11:40 Blood Peripheral Aerobic Blood Culture - Preliminary NO GROWTH IN 1 DAY Resulted 11/24/17 11:40 Blood Peripheral Anaerobic Blood Culture - Preliminary NO GROWTH IN 1 DAY Resulted 11/23/17 18:50 Urine Clean Catch Urine Culture - Preliminary Yeast Species Resulted 11/23/17 18:50 Urine Clean Catch Urine Culture - Final NO GROWTH IN 48 HOURS. Complete Imaging Abdomen X-Ray 11/25/17 0000 Signed Impressions: CONCLUSION: 1. Right nephroureteral catheter and left nephrostomy tube appear in good posi tion. 2. Slight worsening of the wall thickening involving the transverse colon. 3. Blastic metastases. Abdomen/Pelvis CT 11/20/17 0000 Signed Impressions: CONCLUSION: 1. Interval development of moderate to severe right-sided hydronephrosis despi te double-J ureteral stent and percutaneous nephrostomy catheter in apparently good position. Hyperdense material in the inferior pole likely reflects debris/ calculi or hemorrhage which may result in catheter malfunction. Evaluation of t he existing pigtail cystostomy catheter and output is recommended. Catheter may need to be exchanged for improved patency. 2. Stable moderate to severe left-sided hydronephrosis following removal of le ft-sided nephrostomy catheter. 3. Diffuse mesenteric edema and trace ascites. 4. Diffuse circumferential sigmoid and rectal wall thickening. Although coloni c wall thickening can be seen with hypoalbuminemia/mesenteric edema, this is li mited to the sigmoid and rectum. Differential considerations include radiation- induced colitis/proctitis, infection and ischemic etiologies. 5. Redemonstration diffuse blastic osseous metastatic disease with interval pr ogression of retroperitoneal adenopathy. 6. Patchy right basilar airspace consolidation with very trace pleural effusio ns. Head CT 11/17/17 1106 Signed Impressions: Service Date/Time: Friday, November 17, 2017 13:09 - CONCLUSION: 1. Subtle increased density in the extra-axial right frontal mid to low convexities which may reflect subacute to chronic extra-axial blood products. 2. Moderate diffuse stable volume loss and periventricular small vessel ischemic white matter demyelination out of proportion to age. Gibson Wagner MD Chest X-Ray 11/17/17 1106 Signed Impressions: Service Date/Time: Friday, November 17, 2017 11:32 - CONCLUSION: 1. Minimal left lung base atelectasis. 2. Diffuse osseous metastatic disease. Gibson Wagner MD Physical Exam GENERAL: awake and alert, not in respiratory distress. SKIN: Cool and dry. No generalized rash, no ecchymoses and no evidence of embolic lesions. HEAD: Atraumatic. Normocephalic. No temporal wasting, or tenderness. EYES: Addis conjunctiva. No petechia or hemorrhage. Pupils equal, round and reactive to light. Extraocular movements full and intact. No scleral icterus. No injection or drainage. EARS, NOSE AND THROAT: Nose without bleeding or purulent nasal discharge. No sinus tenderness. Dry oral mucosa, some white coating on his tongue NECK: Trachea midline. Supple and not tender, no meningeal signs CARDIOVASCULAR: Regular rate and rhythm. No murmurs, rubs or gallops heard RESPIRATORY: Clear to auscultation. Breath sounds equal bilaterally. No rales , wheezing or rhonchi ABDOMEN: Mildly distended, diffusely tender, no guarding or rebound. Bowel sounds present and normoactive. No organomegaly. EXTREMITIES: No clubbing, cyanosis, or edema. No joint effusion, has good ROM. No calf tenderness. NEUROLOGICAL: Awake and alert. Cranial nerves grossly intact. Motor grossly within normal limits. PSYCHIATRIC: Cooperative LINE: No evidence of infection Assessment & Plan Remarks IMPRESSION UTI, has bilateral nephrostomy tubes in place -Status post replacement of nephrostomy -Last CT with bilateral hydronephrosis C. difficile colitis, worsening thickening Metastatic prostate cancer Renal insufficiency, likely related to his obstruction Leukocytosis better RECOMMENDATION Continue treatment for C. difficile, IV Flagyl and p.o. Vanco Continue Vanco enema Stop Cipro Continue Diflucan Surgery consulted Evaluate his nutrition Monitor progress D/W Safia Davila MD November 26, 2017 09:09
[2017-11-26 09:14] LABS: ALBUMIN 1.4 GM/DL (3.4-5.0); BICARBONATE 23.6 MEQ/L (21.0-32.0); CREATININE 1.2 MG/DL (0.60-1.30); MAGNESIUM 1.4 MG/DL (1.5-2.5); PHOSPHORUS 0.9 MG/DL (2.5-4.9)
[2017-11-26] MEDS ORDERED: NALOXONE HCL 0.4 MG/ML AMP IV PUSH PRN (09:15)
[2017-11-26 09:22] LABS: CALCIUM 6.7 MG/DL (8.5-10.1)
[2017-11-26] MEDS ORDERED: POTASSIUM PHOSPHATE INJ 30 MMOL in SODIUM CHLOR 0.9% 250 ML INJ 250 ML IV ONE (09:30)
[2017-11-26] MEDS ORDERED: MAGNESIUM SULFATE 1 GM PREMIX 100 ML IV ONE (09:30)
--- NOTE | 2017-11-26 09:30 | HHI.PR ---
Subjective Remarks Patient reports constant right-sided sharp anterior abdominal pain. Denies any nausea or vomiting. Objective Vital Signs Date Time Temp Pulse Resp B/P (MAP) Pulse Ox O2 Delivery O2 Flow Rate FiO2 11/26/17 08:30 94 Nasal Cannula 2.00 11/26/17 07:00 94 Nasal Cannula 2.00 50 11/26/17 06:00 81 11/26/17 04:00 79 11/26/17 04:00 98.6 79 14 142/80 (100) 95 11/26/17 02:00 89 11/26/17 00:00 84 11/26/17 00:00 97.6 84 16 139/82 (101) 95 11/25/17 22:35 Nasal Cannula 2.00 11/25/17 22:00 98 11/25/17 20:00 87 11/25/17 20:00 Nasal Cannula 2.00 11/25/17 20:00 98.0 87 16 142/88 (106) 94 11/25/17 20:00 Nasal Cannula 2.00 11/25/17 17:19 94 Nasal Cannula 2.00 11/25/17 16:53 97.9 86 21 136/76 (96) 95 11/25/17 16:00 89 11/25/17 12:00 88 11/25/17 12:00 98.6 80 18 147/78 (101) 95 I/O 11/25/17 11/25/17 11/25/17 11/26/17 11/26/17 11/26/17 07:00 15:00 23:00 07:00 15:00 23:00 Intake Total 1119 ml 700 ml Output Total 900 ml 650 ml 1000 ml Balance 219 ml -650 ml -300 ml Intake Oral 120 ml 500 ml IV Total 999 ml 200 ml Output Urine Total 500 ml Stool Total 500 ml Drainage Total 900 ml 650 ml Result Diagram: 11/26/17 0755 11/26/17 0755 Objective Remarks GENERAL: patient lying in bed. Awake, alert. Oriented to place. Disoriented to year and month. Mother at bedside SKIN: Warm and dry. HEAD: Normocephalic. EYES: No scleral icterus. No injection or drainage. NECK: Supple, trachea midline. No JVD. CARDIOVASCULAR: Regular rate and rhythm without murmurs, gallops, or rubs. RESPIRATORY: Breath sounds equal bilaterally. No accessory muscle use. GASTROINTESTINAL: Abdomen distended, nontender. Positive bowel sounds. MUSCULOSKELETAL: No cyanosis, or edema. Bilateral nephrostomy tubes with translucent urine. BACK: Nontender without obvious deformity. No CVA tenderness. A/P Assessment and Plan == 11/25/17 //MIRYAM. Improving renal function. Creatinine 1.2 from 1.8 yesterday. Status post bilateral nephrostomy tubes. Appreciate IR assistance. Continue to monitor. //Non-gap metabolic acidosis. This has resolved, however will continue IV fluids of bicarb due to diarrhea. //Severe sepsis. Leukocytosis resolved 10.7. Continue antibiotics and antifungals as per ID. Repeat cultures pending. Appreciate assistance. //Hypophosphatemia, hypokalemia. Replace and monitor //Severe C. difficile infection. //Abdominal distention. = Worsening abdominal pain starting 11/25 with worsening bowel distention, thumbprinting of large bowel on x-ray. Continue p.o. vancomycin, IV metronidazole, vancomycin retention enemas with rectal tube ID following. //Palliative care. Patient and mother have agreed to palliative care consult. Patient reports that does not have a phone. This is a 57-year-old male with presumed urosepsis, with hypotension altered mental status with recurrent frequent falls. Patient recently admitted with acute on chronic subarachnoid hemorrhage. CT shows subacute on chronic extra- axial collections of blood. Neurosurgery has been consulted. Plan by systems: Neurologic: //Encephalopathy //Anxiety disorder //Depression Neuro checks per ICU protocol CT brain-Subtle increased density in the extra-axial right frontal mid to low convexities which may reflect subacute to chronic extra-axial blood products. Moderate diffuse stable volume loss and periventricular small vessel ischemic white matter demyelination out of proportion to age. Neurosurgery consulted- I discussed with Dr. Cabrera , neurosurgeon, who reviewed imaging and assessed patient, no surgical intervention required at this time Avoid sedatives Will hold escitalopram 10 mg/day, Haldol PRN, Ativan PRN home medications Respiratory: Maintain O2 sat greater than 92%. Provide O2 14 L/min nasal cannula Duo nebs every 4 hours as needed //Cardiovascular: //Chronic systolic heart failure //CAD //Hypertension BNP slightly elevated Trend troponin level. Troponins are trending down. Maintain MAP greater than 65 Hold carvedilol 12.5 twice daily, and Lasix 40 mg/day ( home medications) in the setting of hypotension Patient denies chest pain at this time Renal: //Presumed urosepsis //BPH //Acute on chronic kidney disease //Prostate cancer with metastasis //Remote history of testicular cancer //Bilateral nephrostomy tubes Hold Tamulosin in the setting of hypotension Last antibiotics fluconazole and Ceftin 10 day course 10/15/2017 for UTI -- Strict I/Os Restart home dose dilaudid PO for pain FEN/GI: //Nausea //Dehydration //Heart healthy diet Patient normally takes omeprazole twice daily, continue PPI Received 2 L normal saline IV bolus in the ED Normal saline 84 cc/hour Creatinine 3.49, continue to monitor Alkaline phosphatase 170, no pain on palpation-consider gallbladder ultrasound Heme/ID: //Leukocytosis, improving //C. difficile colitis. //UTI with Enterococcus faecalis pansensitive //stage IV prostate cancer with bone metastasis, previous testicular cancer, status post treatment. Follow-up urine and blood cultures Trend lactate DC Zosyn . Start ciprofloxacin Started Vanco po , continue Flagyl for C. difficile Monitor CBC Monitor electrolytes and replace as needed = 11/23. Sepsis. Pending lactic acid. Start treatment for severe C. difficile. Consult ID for treatment of severe C. difficile. Endocrine: Glucose monitoring as need -- SSI GI: //Bloody diarrhea. Monitor H&H and transfuse if need. Consulted GI. Patient is however refusing any procedures. //With C. difficile colitis as above + C. difficile. other stool studies pending = 11/23. Severe C. difficile infection. Will start by mouth vancomycin. Continue IV metronidazole as well. // nephrostomy tube leaking consult his urology Dr Lockhart //Prophylaxis: GI Prophylaxis Protonix DVT Prophylaxis -- SCDs Hold pharmacological DVT prophylaxis at this time. Lines: Peripheral IVs 2. Central line if indicated Discharge Planning This patient remains ill. DC when improved and cleared by consultants. Code Status Full Discussed Condition With Dr. Brenner, patient's mother. Patient is registered with [facility] secondary to multiple medical comorbidities. Upon inquiry patient requests to remain full code and all aggressive measures to be instituted. Previously seen by palliative care Ms. Ayala. Hospice signed off GI consult as patient with bloody diarrhea. However patient is refusing further procedures. Consult palliative care. Patient is with hospice s oP and currently is full code his plans are for home with hospice? However patient decided full code and declined hospice at this time. Hospice signed off. Bennie Meyer MD November 26, 2017 09:30
[2017-11-26 09:32] LABS: BANDS 9 % (0-6); LYMPHOCYTES 2 % (9-44); MONOCYTES 3 % (0-8); MYELOCYTES 2 % (0-0); POLYS (SEG NEUTROPHILS) 82 % (16-70)
[2017-11-26 09:33] LABS: TOXIC VACUOLATION PRESENT (NONE SEEN)
[2017-11-26] MEDS: VANCOMYCIN 500 MG VIAL (FOR ORAL USE ONLY) PO SCH ×4 (09:38→20:37)
[2017-11-26] MEDS: FLUCONAZOLE 100 MG TAB PO SCH (09:39)
[2017-11-26] MEDS: SODIUM CHLORIDE 0.9% FLUSH 10 ML FLUSH IV FLUSH SCH ×2 (09:39→21:00)
[2017-11-26] MEDS: PANTOPRAZOLE SOD 40 MG DELAYED RELEASE TAB PO SCH (09:40)
[2017-11-26] MEDS: HYDROmorphone HCL PF 2 MG/ML VIAL IV PUSH PRN ×3 (09:43→20:39)
--- NOTE | 2017-11-26 18:03 | PD.CONS ---
Consult Service Palliative Care Consult Requested By Dr. Meyer. Primary Care Physician Unknown Reason for Consultation a. To assist with evaluation and management of symptoms including: pain, debility. b. To assist medical decision maker(s) with: better understanding of current medical conditions; weighing benefits/burdens of medical treatment options; making medical treatment decisions. . HPI History of Present Illness Mr. Bravo is a 57 y/o male with a medical history significant for stage IV prostate cancer with metastasis to bone and bladder, insulin-dependent diabetes mellitus type 2, hypertension, CAD and CHF. Patient presented to ED on 11/17/17 for evaluation after multiple falls. Patient under hospice services at time of ED arrival. Head CT revealing previous subacute hemorrhage as well as moderate diffuse stable volume loss and periventricular small vessel ischemic white matter demyelination out of proportion to age. Patient arrived with fairly elevated BUN and creatinine of 45/3.49, GFR of 18. Random glucose 269. Troponin elevated 1.52, non-ST elevation [place]. Chest x-ray revealing minimal left lung base atelectasis, diffuse osseous metastatic disease. Patient was admitted for further monitoring and management. Neurosurgery, Dr. Cabrera consulted on 11/17/17 secondary to recent brain bleed and falls. Neurological observation and evaluation recommended, no neurosurgical intervention planned. Cardiology, Dr. Ram consulted on secondary to elevated troponins -non-STEMI, possibly type II. Medical management recommended, patient not a candidate for revascularization. 2D echo 11/21/17 revealing EF of 50-55%, mild tricuspid valve regurgitation. GI consulted on 11/19/17 for diarrhea and hematochezia. Patient reporting loose stools with bright red blood intermittently for the prior month. Patient with anemia, Hgb dropped from 10.2-8.8. Patient declined GI bleed workup. Left nephrostomy tube was replaced by IR on 11/23 secondary to dislodged in subcutaneous tissue. Infectious disease consulted on 11/24/17 for evaluation with C. difficile colitis, patient with worsening leukocytosis. Palliative care has been consulted for further clarifications of goals of care. Reviewed prior hospitalizations and ED visits. Most recent hospitalization from 10/06/17 to 10/09/17. Patient presented to the ED for evaluation of a syncopal episode, unwitnessed fall. Head CT revealed small amount of acute subarachnoid hemorrhage and a right sided frontoparietal sulcus. Neurosurgeon who recommends patient to be in ISC. Patient positive for UTI. CTA negative for PE, however, revealed diffuse bony metastatic disease. Patient left AMA, however, returned to ED via EMS the same day. While in ER, pt confused, agitated ultimately requiring restraints. He was placed as Bradley act and admitted for additional monitoring and management. Psychiatry, Dr. Paredes consulted on 10/06/17, patient was found with poor insight and judgment with bizarre behavior and confusion. Patient was continued on Bradley act for safety. Follow-up psych visit by Dr. Alvarez on 10/08/17, phone patient with fair insight and impulsive judgment. Bradley act was lifted. Patient was discharged home with hospice services. Prior hospitalization from 06/12/17 to 06/23/17 secondary to severe anemia, acute kidney failure, GI bleed. Oncology, Dr. Mosley consulted on 06/13/17. Patient was continued on hormone blockade therapy. GI, Dr. Vargas consulted on 06/12/17 for evaluation of GI bleed. Patient was placed on PPI IV drip, underwent EGD with biopsy on 06/13/17. Pathology results of duodenal biopsy confirming peptic duodenitis and ulcer. Urology, Dr. Gutierrez consulted on 06/13/17. Patient underwent cystoscopy and palliative partial transurethral resection of bladder mass on 06/15/17 -pathology positive for invasive high-grade urothelial carcinoma. Placement of bilateral ureteral catheters unsuccessful secondary to advanced cancer, tumor burden. Subsequently , patient underwent placement of bilateral nephrostomy tubes on 06/15/17. Nephrology, Dr. Allen consulted on 06/14/17 secondary to elevated BUN and creatinine as well as metabolic acidosis. Patient with acute kidney injury with obstructive uropathy. Renal function improved since placement of nephrostomy tubes in IR 06/15/17. Left was exchanged in IR 06/19/17. Right dislodged nephrostomy replaced 08/29 and left exchanged by Dr. Perry. Patient with history of hypertension and coronary artery disease, history of stents in 2007, frequent angina pectoris. Echo 06/16/17 revealing EF of 30-35% , mild mitral and tricuspid valve regurgitation. Patient was discharged home with hospice services. Prior echo by cath in 2007 revealing EF of 10-15%. Prior hospitalization from 02/17 to 02/20/17 for rami fracture secondary to mechanical fall. Prior hospitalization from 02/12 to 02/14/17 secondary to hematuria. Prior hospitalization from 07/26 to 08/02/16 secondary to osteomyelitis of left first metatarsal status post I&D with bone biopsy. Patient was discharged home with home health. Patient enrolled into [facility] services in June 2017, multiple revocations and enrollments since. Most recent revocation 11/20/17 in favor of aggressive management. Patient seen in medical ICU. Resting in bed in moderate distress secondary to abdominal pain. Denies nausea or vomiting, persistent diarrhea -rectal tube in place. Patient alert to self, disoriented as to place and situation. He provided wrong age and wrong location/city. He told me he was in [place]. Patient would a very limited insight into his clinical condition, was unable to tell me why he was hospitalized. Patient's mother Paola at bedside. Laboratory workup today revealing WBC 10.7, Hgb stable at 10.5. BUN/creatinine 18/1.20. Albumin 1.4. Most recent UA 11/23- for nitrates, large leukocyte. Urine culture growing Lyric albicans, previous urine culture 11/17 growing enterococcus Faecalis. Patient endorsing abdominal pain, abdomen distended with positive bowel sounds. Most recent abdominal x-ray 11/25 revealing slight worsening of the wall thickening involving the transverse colon as well as blastic bony metastasis. Patient afebrile, stable hemodynamically. Tolerating O2 via nasal cannula 2 L. Patient known to palliative care services. Reintroduced role of palliative care in advanced illness in regards to symptom management as well as support surrounding goals of care and advance care planning. Patient and mother Paola receptive. Patient with very poor insight into his clinical condition and overall prognosis, unable to discuss goals of care at this time. Telephone conversation with patient's daughter Morris Bravo who is healthcare surrogate decision maker. She is also known to palliative care services from prior admissions. Medical update provided. Reviewed patient's past medical history, events leading to this hospitalization, clinical course and current medical management. Share concerns of patient's overall condition given prostate cancer with metastasis to bone and bladder, profound physical deconditioning, recent non-STEMI, current sepsis, UTI, worsening C. difficile colitis, among multiple other chronic ongoing comorbidities Daughter confirmed revocation of hospice on 11/20/17 in favor of aggressive management to include full code. Share concerns of patient's condition and overall poor prognosis given the above. Daughter reiterated aggressive management. She reports that family's goal of therapy is for prolongation of survival via aggressive management if necessary. Reviewed quality of life given increased symptom burden and progressive decline with multiple recent complications and hospitalizations. Daughter tells me that family wants patient to from cancer, discussed that patient is likely to from complications due to his multiple medical issues. Daughter states "my father is not ready to , he does not want to ". Active listening and ongoing emotional support provided. Discussed that it will come the time that patient will likely from complications in spite of aggressive management given again his debilitated status from his multiple medical issues. Daughter receptive to palliative care follow-ups, pending surgical consultation recommendations. Daughter verbalized that family is likely to proceed with removal of colon and placement of colostomy if this would extend patient's survival. Case discussed with bedside RN Gabino. . Function/Cognitive Trajectory Patient residing in private home with ex- prior to this hospitalization. Requiring assistance with ADLs. Ambulating with Rollator walker. Insulin- dependent, no oxygen use. Intermittent confusion reported since June 2017. . Review of Systems ROS Limitations: Clinical Condition, Poor Historian Constitutional: COMPLAINS OF: Change in appetite, Pain, Generalized weakness, DENIES: Fever, Dizziness Endocrine: DENIES: Heat/cold intolerance Eyes: DENIES: Blurred vision, Eye pain Ears, nose, mouth, throat: DENIES: Hearing loss, Oral lesions, Ear Pain, Running Nose, Epistaxis Respiratory: COMPLAINS OF: Shortness of breath, DENIES: Hemoptysis Cardiovascular: COMPLAINS OF: Dyspnea on Exertion, DENIES: Lower Extremity Edema Gastrointestinal: COMPLAINS OF: Bloody stools, Diarrhea, Dyspepsia or heartburn , DENIES: Nausea, Vomiting Genitourinary: DENIES: Hematuria Musculoskeletal: DENIES: Joint pain, Back pain Integumentary: DENIES: Abnormal pigmentation, Pruritus Hematologic/Lymphatics: COMPLAINS OF: Bruising Immunologic/Allergic: DENIES: Eczema Neurologic: COMPLAINS OF: Poor Balance, DENIES: Localized weakness, Seizures, Speech Problems, Tremor Psychiatric: COMPLAINS OF: Anxiety, Confusion, Depression, Agitation Past Family Social History Coded Allergies: glyburide (Verified Allergy, Severe, RASH, 11/17/17) amlodipine (Verified Allergy, Unknown, 11/17/17) rhabdomyolysis atorvastatin (Verified Allergy, Unknown, 11/17/17) rhabdomyolysis metformin (Verified Allergy, Unknown, Rash, 11/17/17) pravastatin (Verified Allergy, Unknown, 11/17/17) rhabdomyolysis simvastatin (Verified Allergy, Unknown, 11/17/17) rhabdomyolysis Past Medical History Stage IV prostate cancer, metastases to bone and bladder Insulin-dependent diabetes mellitus type 1 Hypertension CAD CHF BPH Testicular cancer GI bleed due to duodenal ulcer in June 2017 Depression . Past Surgical History Cardiac stents Bilateral nephrostomy tubes Orchiectomy Left foot surgery for osteomyelitis . Reported Medications Sucralfate 1 Gram Tab 1 Gm PO TID Haloperidol 1 Mg Tab 1 Mg PO BID Senna-Plus (Sennosides-Docusate Sodium) 8.6-50 Mg Tab 3 Tab PO BID Prochlorperazine Maleate 10 Mg Tab 10 Mg PO Q4H PRN Omeprazole 20 Mg Tab 20 Mg PO BID Escitalopram (Escitalopram Oxalate) 10 Mg Tab 10 Mg PO DAILY Coreg (Carvedilol) 12.5 Mg Tab 12.5 Mg PO BID Gabapentin 300 Mg Cap 300 Mg PO BID Flomax (Tamsulosin HCl) 0.4 Mg Cap 0.4 Mg PO HS Commode 3-in-1 (Device) 1 Mis Mis Ea .ROUTE DIRECTED Lorazepam 2 Mg Tab 2 Mg PO Q2HR PRN Furosemide 40 Mg Tab 40 Mg PO DAILY Duoneb (Ipratropium-Albuterol Neb) 0.5-2.5 Mg/3 Ml Neb 1 Nebule INH Q4HR NEB Hydromorphone (Hydromorphone HCl) 4 Mg Tab 6 Mg PO Q4HR PRN Hydromorphone (Hydromorphone HCl) 4 Mg Tab 4 Mg PO Q4H PRN Lantus Inj (Insulin Glargine) 1,000 Unit/10 Ml Vial 15 Units SQ HS Novolog Flexpen Inj (Insulin Aspart) 300 Unit/3 Ml Pen SQ TIDAC . Current Medications Medications (Trade) Dose Ordered Sig/Jerzy Route Start Time Stop Time Status Last Admin (NS Flush) 2 ml UNSCH PRN IV FLUSH 11/17/17 14:45 (NS Flush) 2 ml BID IV FLUSH 11/17/17 21:00 11/26/17 09:39 (Tylenol) 650 mg Q6H PRN PO 11/17/17 14:45 11/19/17 05:30 (Protonix) 40 mg DAILY PO 11/18/17 09:00 11/26/17 09:40 (Duoneb Neb) 1 ampule Q4HR NEB PRN INH 11/17/17 14:45 ([facility]) 1 Q361D XX 11/17/17 14:45 (Chlorhexidine 2% Cloth) Taper DAILY@04 TOP 11/18/17 04:00 11/14/18 03:59 11/26/17 04:00 (Chlorhexidine 2% Cloth) 3 pack UNSCH PRN TOP 11/17/17 14:45 (Milk Of Magnesia Liq) 30 ml Q12H PRN PO 11/17/17 14:45 11/19/17 04:12 (Senokot) 17.2 mg Q12H PRN PO 11/17/17 14:45 (Dulcolax Supp) 10 mg DAILY PRN RECTAL 11/17/17 14:45 (Lactulose Liq) 30 ml DAILY PRN PO 11/17/17 14:45 (D50w (Vial) Inj) 50 ml UNSCH PRN IV PUSH 11/17/17 15:00 (Glucagon Inj) 1 mg UNSCH PRN OTHER 11/17/17 15:00 (NovoLOG SUPPLEMENTAL SCALE) 1 ACHS SLIDING SCALE SQ 11/17/17 17:00 11/26/17 12:00 (Zofran Odt) 4 mg Q6H PRN SL 11/17/17 15:00 11/26/17 06:48 (Dilaudid) 6 mg Q4HR PRN PO 11/19/17 10:00 11/26/17 10:43 (Pill Splitter) 1 ea UNSCH PRN OTHER 11/19/17 12:30 Metronidazole 100 ml @ 100 mls/hr Q8H IV 11/21/17 13:00 11/26/17 14:18 (VANCOMYCIN for oral use only) 500 mg QID PO 11/23/17 21:00 11/26/17 14:17 Sodium Bicarbonate 100 meq/Potassium Chloride 20 meq/ Dextrose 1,110 ml @ 75 mls/hr [id number] IV 11/23/17 20:00 11/26/17 05:15 (Diflucan) 100 mg DAILY PO 11/24/17 10:30 11/26/17 09:39 Vancomycin HCl 500 mg/Sodium Chloride 255 ml @ 0 mls/hr Q6HR IRRIGATION 11/26/17 00:00 11/26/17 14:35 (Dilaudid Pf Inj) 1 mg Q3H PRN IV PUSH 11/26/17 09:15 11/26/17 14:34 (Narcan Inj) 0.4 mg UNSCH PRN IV PUSH 11/26/17 09:15 Family History Patient's father from pancreatic cancer at age 59. Patient's mother has heart valve replacement. . Substance Use Tobacco: None reported. Alcohol: None reported. Prescription med abuse: None reported. Illicits: None reported. . Psychosocial History Patient originally from [place], [place]. His father is Iranian, mother Portuguese. Moved to [place] in 1997. 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 No service. Patient is , previously for 17 years. Has 2 daughters, Afshan and Alondra who are twins. . Spiritual/Cultural Factors Portuguese [employer]. . Health Care Surrogate: Copy in medical record Date completed: 10/08/2017. . Health Care Surrogate(s): Patient electing daughter Afshan Bravo as healthcare surrogate decision maker. No alternative HCS. . Today's verbally stated goals: Aggressive management to include full code. . Ethical and Legal Issues No ethical legal issues identified. . Physical Exam Vital Signs Date Time Temp Pulse Resp B/P (MAP) Pulse Ox O2 Delivery O2 Flow Rate FiO2 11/26/17 15:04 12 11/26/17 14:00 84 11/26/17 12:00 98.2 92 22 132/68 (89) 88 11/26/17 12:00 92 11/26/17 11:43 20 11/26/17 10:00 85 11/26/17 08:30 94 Nasal Cannula 2.00 11/26/17 08:00 84 11/26/17 08:00 84 17 148/93 (111) 93 11/26/17 07:00 94 Nasal Cannula 2.00 50 11/26/17 06:00 81 11/26/17 04:00 79 11/26/17 04:00 98.6 79 14 142/80 (100) 95 11/26/17 02:00 89 11/26/17 00:00 84 11/26/17 00:00 97.6 84 16 139/82 (101) 95 11/25/17 22:35 Nasal Cannula 2.00 11/25/17 22:00 98 11/25/17 20:00 87 11/25/17 20:00 Nasal Cannula 2.00 11/25/17 20:00 98.0 87 16 142/88 (106) 94 11/25/17 20:00 Nasal Cannula 2.00 11/25/17 17:19 94 Nasal Cannula 2.00 11/25/17 16:53 97.9 86 21 136/76 (96) 95 11/26/17 11/27/17 19:00 07:00 Intake Total 100 ml Balance 100 ml IV Total 100 ml Exam CONSTITUTIONAL/GENERAL: This is an adequately nourished patient in moderate distress secondary to abdominal pain. Patient appears older than stated age. TUBES/LINES/DRAINS: Nasal cannula, PIV's, SCDs, bilateral nephrostomy tubes, rectal tube. SKIN: No jaundice, rashes, or lesions. Ecchymoses on upper extremities. No wounds seen anteriorly. Skin temperature appropriate. Not diaphoretic. HEAD: Atraumatic. Normocephalic. EYES: Pupils equal and round and reactive. Extraocular motions intact. No scleral icterus. No injection or drainage. ENT: Hearing grossly normal. Nose without bleeding or purulent drainage. Moist oral mucosa. NECK: Trachea midline. Supple, nontender. CARDIOVASCULAR: Regular rate and rhythm without murmurs, gallops, or rubs. Peripheral pulses symmetric. RESPIRATORY/CHEST: Symmetric, unlabored respirations. Clear to auscultation. Breath sounds equal bilaterally. No wheezes, rales, or rhonchi. GASTROINTESTINAL: Abdomen round, distended, tender to palpation. Bowel sounds present. GENITOURINARY: Without palpable bladder distension. Bilateral nephrostomy tubes in place, moderate amount of yellow urine. MUSCULOSKELETAL: Extremities without clubbing, cyanosis, or edema. No mottling or clubbing. NEUROLOGICAL: Awake and alert to self. Confused as to place and situation. Verbal. Moves all extremities. PSYCHIATRIC: calm. . Diagnostic Tests Laboratory Laboratory Tests Test 11/23/17 18:50 11/23/17 18:55 11/23/17 22:00 11/24/17 07:19 Urine Color YELLOW (YELLW/STRAW) Urine Turbidity HAZY (CLEAR) Urine pH 5.5 (5.0-8.5) Urine Specific Garibaldi 1.014 (1.002-1.035) Urine Protein 30 mg/dL (NEG-TRACE) Urine Glucose (UA) NEG mg/dL (NEG) Urine Ketones NEG mg/dL (NEG) Urine Occult Blood LARGE (NEG) Urine Nitrite NEG (NEG) Urine Bilirubin NEG (NEG) Urine Urobilinogen LESS THAN 2.0 MG/DL (LESS Urine Leukocyte Esterase LARGE (NEG) Urine RBC /hpf (0-3) Urine WBC /hpf (0-5) Urine WBC Clumps MANY (NONE) Microscopic Urinalysis Comment CULTURE INDICATED White Blood Count 26.5 TH/MM3 (4.0-11.0) Red Blood Count 4.36 MIL/MM3 (4.50-5.90) Hemoglobin 10.3 GM/DL (13.0-17.0) Hematocrit 34.3 % (39.0-51.0) Mean Corpuscular Volume 78.6 FL (80.0-100.0) Mean Corpuscular Hemoglobin 23.6 PG (27.0-34.0) Mean Corpuscular Hemoglobin Concent 30.0 % (32.0-36.0) Red Cell Distribution Width 17.5 % (11.6-17.2) Platelet Count 336 TH/MM3 (150-450) Mean Platelet Volume 7.4 FL (7.0-11.0) Neutrophils (%) (Auto) 90.1 % (16.0-70.0) Lymphocytes (%) (Auto) 5.2 % (9.0-44.0) Monocytes (%) (Auto) 3.4 % (0.0-8.0) Eosinophils (%) (Auto) 1.2 % (0.0-4.0) Basophils (%) (Auto) 0.1 % (0.0-2.0) Neutrophils # (Auto) 23.8 TH/MM3 (1.8-7.7) Lymphocytes # (Auto) 1.4 TH/MM3 (1.0-4.8) Monocytes # (Auto) 0.9 TH/MM3 (0-0.9) Eosinophils # (Auto) 0.3 TH/MM3 (0-0.4) Basophils # (Auto) 0.0 TH/MM3 (0-0.2) CBC Comment AUTO DIFF Differential Total Cells Counted 100 Neutrophils % (Manual) 82 % (16-70) Band Neutrophils % 12 % (0-6) Lymphocytes % 2 % (9-44) Monocytes % 2 % (0-8) Eosinophils % 1 % (0-4) Neutrophils # (Manual) 25.2 TH/MM3 (1.8-7.7) Myelocytes 1 % (0-0) Differential Comment FINAL DIFF MANUAL Toxic Granulation 2+ (NORMAL) Toxic Vacuolation PRESENT (NONE SEEN) Platelet Estimate NORMAL (NORMAL) Platelet Morphology Comment NORMAL (NORMAL) Sami Cells 1+ (NORMAL) Acanthocytes OCC (NORMAL) Blood Urea Nitrogen 44 MG/DL (7-18) 39 MG/DL (7-18) Creatinine 3.16 MG/DL (0.60-1.30) 2.65 MG/DL (0.60-1.30) Random Glucose 48 MG/DL (74-106) 144 MG/DL (74-106) Albumin 1.1 GM/DL (3.4-5.0) 1.1 GM/DL (3.4-5.0) Calcium Level 7.5 MG/DL (8.5-10.1) 6.9 MG/DL (8.5-10.1) Phosphorus Level 3.4 MG/DL (2.5-4.9) Magnesium Level 2.0 MG/DL (1.5-2.5) Sodium Level 137 MEQ/L (136-145) 140 MEQ/L (136-145) Potassium Level 3.8 MEQ/L (3.5-5.1) 3.7 MEQ/L (3.5-5.1) Chloride Level 111 MEQ/L (98-107) 112 MEQ/L (98-107) Carbon Dioxide Level 11.3 MEQ/L (21.0-32.0) 15.8 MEQ/L (21.0-32.0) Anion Gap 15 MEQ/L (5-15) 12 MEQ/L (5-15) Estimat Glomerular Filtration Rate 20 ML/MIN (>89) 25 ML/MIN (>89) Lactic Acid Level 1.1 mmol/L (0.4-2.0) Blood Gas Puncture Site RT RADIAL Blood Gas Patient Temperature 98.6 Blood Gas HCO3 13 mmol/L (22-26) Blood Gas Base Excess -11.9 mmol/L (-2-2) Blood Gas Oxygen Saturation 92 % (90-100) Arterial Blood pH 7.31 (7.380-7.420) Arterial Blood Partial Pressure CO2 27 mmHg (38-42) Arterial Blood Partial Pressure O2 72 mmHg (61-120) Arterial Blood Oxygen Content 13.5 Vol % (12.0-20.0) Arterial Blood Carboxyhemoglobin 1.1 % (0-4) Arterial Blood Methemoglobin 1.3 % (0-2) Blood Gas Hemoglobin 10.4 G/DL (12.0-16.0) Oxygen Delivery Device NASAL CANNULA Blood Gas Liter Flow 3 L/M Total Protein 4.7 GM/DL (6.4-8.2) Alkaline Phosphatase 120 U/L (45-117) Aspartate Amino Transf (AST/SGOT) 13 U/L (15-37) Alanine Aminotransferase (ALT/SGPT) 6 U/L (12-78) Total Bilirubin 0.4 MG/DL (0.2-1.0) Protein Corrected Calcium 8.2 MG/DL (8.5-10.1) Test 11/25/17 06:52 11/25/17 20:35 11/25/17 22:00 11/26/17 07:55 White Blood Count 12.6 TH/MM3 (4.0-11.0) 10.7 TH/MM3 (4.0-11.0) Red Blood Count 4.24 MIL/MM3 (4.50-5.90) 4.16 MIL/MM3 (4.50-5.90) Hemoglobin 10.3 GM/DL (13.0-17.0) 10.5 GM/DL (13.0-17.0) Hematocrit 32.4 % (39.0-51.0) 30.9 % (39.0-51.0) Mean Corpuscular Volume 76.5 FL (80.0-100.0) 74.3 FL (80.0-100.0) Mean Corpuscular Hemoglobin 24.2 PG (27.0-34.0) 25.1 PG (27.0-34.0) Mean Corpuscular Hemoglobin Concent 31.7 % (32.0-36.0) 33.8 % (32.0-36.0) Red Cell Distribution Width 17.4 % (11.6-17.2) 17.4 % (11.6-17.2) Platelet Count 253 TH/MM3 (150-450) 229 TH/MM3 (150-450) Mean Platelet Volume 7.2 FL (7.0-11.0) 6.9 FL (7.0-11.0) Neutrophils (%) (Auto) 83.0 % (16.0-70.0) 80.8 % (16.0-70.0) Lymphocytes (%) (Auto) 8.5 % (9.0-44.0) 8.4 % (9.0-44.0) Monocytes (%) (Auto) 5.4 % (0.0-8.0) 7.7 % (0.0-8.0) Eosinophils (%) (Auto) 2.7 % (0.0-4.0) 2.7 % (0.0-4.0) Basophils (%) (Auto) 0.4 % (0.0-2.0) 0.4 % (0.0-2.0) Neutrophils # (Auto) 10.5 TH/MM3 (1.8-7.7) 8.6 TH/MM3 (1.8-7.7) Lymphocytes # (Auto) 1.1 TH/MM3 (1.0-4.8) 0.9 TH/MM3 (1.0-4.8) Monocytes # (Auto) 0.7 TH/MM3 (0-0.9) 0.8 TH/MM3 (0-0.9) Eosinophils # (Auto) 0.3 TH/MM3 (0-0.4) 0.3 TH/MM3 (0-0.4) Basophils # (Auto) 0.1 TH/MM3 (0-0.2) 0.0 TH/MM3 (0-0.2) CBC Comment AUTO DIFF AUTO DIFF Differential Total Cells Counted 100 100 Neutrophils % (Manual) 86 % (16-70) 82 % (16-70) Band Neutrophils % 8 % (0-6) 9 % (0-6) Lymphocytes % 1 % (9-44) 2 % (9-44) Monocytes % 4 % (0-8) 3 % (0-8) Neutrophils # (Manual) 12.0 TH/MM3 (1.8-7.7) 10.0 TH/MM3 (1.8-7.7) Myelocytes 1 % (0-0) 2 % (0-0) Differential Comment FINAL DIFF MANUAL FINAL DIFF MANUAL Platelet Estimate NORMAL (NORMAL) NORMAL (NORMAL) Platelet Morphology Comment NORMAL (NORMAL) NORMAL (NORMAL) Blood Urea Nitrogen 27 MG/DL (7-18) 18 MG/DL (7-18) Creatinine 1.84 MG/DL (0.60-1.30) 1.20 MG/DL (0.60-1.30) Random Glucose 189 MG/DL (74-106) 173 MG/DL (74-106) Albumin 1.0 GM/DL (3.4-5.0) 1.4 GM/DL (3.4-5.0) Calcium Level 6.6 MG/DL (8.5-10.1) 6.7 MG/DL (8.5-10.1) Phosphorus Level 1.4 MG/DL (2.5-4.9) 0.9 MG/DL (2.5-4.9) Magnesium Level 1.6 MG/DL (1.5-2.5) 1.4 MG/DL (1.5-2.5) Sodium Level 139 MEQ/L (136-145) 138 MEQ/L (136-145) Potassium Level 3.3 MEQ/L (3.5-5.1) 3.4 MEQ/L (3.5-5.1) Chloride Level 108 MEQ/L (98-107) 107 MEQ/L (98-107) Carbon Dioxide Level 23.2 MEQ/L (21.0-32.0) 23.6 MEQ/L (21.0-32.0) Anion Gap 8 MEQ/L (5-15) 7 MEQ/L (5-15) Estimat Glomerular Filtration Rate 38 ML/MIN (>89) 62 ML/MIN (>89) Lactic Acid Level 1.6 mmol/L (0.4-2.0) Nasal Screen MRSA (PCR) MRSA NOT DETECTED (NOT Eosinophils % 2 % (0-4) Toxic Vacuolation PRESENT (NONE SEEN) Result Diagram: 11/26/17 0755 11/26/17 0755 Microbiology Microbiology Date/Time Source Procedure Growth Status 11/24/17 11:47 Blood Peripheral Aerobic Blood Culture - Preliminary NO GROWTH IN 2 DAYS Resulted 11/24/17 11:47 Blood Peripheral Anaerobic Blood Culture - Preliminary NO GROWTH IN 2 DAYS Resulted 11/24/17 11:40 Blood Peripheral Aerobic Blood Culture - Preliminary NO GROWTH IN 2 DAYS Resulted 11/24/17 11:40 Blood Peripheral Anaerobic Blood Culture - Preliminary NO GROWTH IN 2 DAYS Resulted 11/23/17 18:50 Urine Clean Catch Urine Culture - Preliminary Lyric Albicans Yeast Species Resulted 11/23/17 18:50 Urine Clean Catch Urine Culture - Final NO GROWTH IN 48 HOURS. Complete Imaging Last Impressions Abdomen X-Ray 11/25/17 0000 Signed Impressions: CONCLUSION: 1. Right nephroureteral catheter and left nephrostomy tube appear in good posi tion. 2. Slight worsening of the wall thickening involving the transverse colon. 3. Blastic metastases. Abdomen/Pelvis CT 11/20/17 0000 Signed Impressions: CONCLUSION: 1. Interval development of moderate to severe right-sided hydronephrosis despi te double-J ureteral stent and percutaneous nephrostomy catheter in apparently good position. Hyperdense material in the inferior pole likely reflects debris/ calculi or hemorrhage which may result in catheter malfunction. Evaluation of t he existing pigtail cystostomy catheter and output is recommended. Catheter may need to be exchanged for improved patency. 2. Stable moderate to severe left-sided hydronephrosis following removal of le ft-sided nephrostomy catheter. 3. Diffuse mesenteric edema and trace ascites. 4. Diffuse circumferential sigmoid and rectal wall thickening. Although coloni c wall thickening can be seen with hypoalbuminemia/mesenteric edema, this is li mited to the sigmoid and rectum. Differential considerations include radiation- induced colitis/proctitis, infection and ischemic etiologies. 5. Redemonstration diffuse blastic osseous metastatic disease with interval pr ogression of retroperitoneal adenopathy. 6. Patchy right basilar airspace consolidation with very trace pleural effusio ns. Head CT 11/17/17 1106 Signed Impressions: Service Date/Time: Friday, November 17, 2017 13:09 - CONCLUSION: 1. Subtle increased density in the extra-axial right frontal mid to low convexities which may reflect subacute to chronic extra-axial blood products. 2. Moderate diffuse stable volume loss and periventricular small vessel ischemic white matter demyelination out of proportion to age. Gibson Wagner MD Chest X-Ray 11/17/17 1106 Signed Impressions: Service Date/Time: Friday, November 17, 2017 11:32 - CONCLUSION: 1. Minimal left lung base atelectasis. 2. Diffuse osseous metastatic disease. Gibson Wagner MD Procedures * 11/23/17 -left nephrostomy tube replaced . Patient/Family Conference Present at Family Conference: Patient, mother Paola, daughter Morris. Family Conference Time (mins): 45 Family Conference Location: Bedside, Telephone Issues Discussed: * Palliative care role, purpose, approach * Additional medical, psychosocial, and spiritual history * Patients general health, functional status, and cognitive changes in the months leading up to the current hospitalization * Patient/family understanding of the current medical problems * Patient/family understanding of prognosis -poor prognosis for prolonged survival or improved quality of life * Patients goals of care as best understood from advance directives and/or conversations and/or values * Current medical treatment options and benefits/burdens of those options * Likely scenarios comparing ongoing aggressive care with a transition to comfort measures only * Questions answered to the best of my ability * Palliative care contact information provided * Risks, benefits and limitations of CPR, intubation and mechanical ventilation given patient's per prognosis * Hospice philosophy and benefits . Assessment and Plan Disease Oriented Problem List: (1) Severe sepsis (2) Prostate cancer metastatic to multiple sites (3) Metastasis to bone (4) CAD (coronary artery disease) (5) Hypertension (6) DM (diabetes mellitus) (7) Acute renal failure (8) Non-ST elevation [place] (NSTEMI) (9) UTI (urinary tract infection) (10) Bilateral ureteral obstruction (11) Encephalopathy Symptom Scale: (1) Abdominal pain 0-10 Scale: 7 (2) Debility 0-10 Scale: Unable to quantify Pertinent Non-Medical Issues Psychosocial: Patient originally from [place], [place]. Father is Iranian , mother is Portuguese. Moved to [place] in 1997. 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 No service. Patient is , previously for 17 years. Has 2 daughters, Afshan and Alondra who are twins. Spiritual: Portuguese restorationist. Legal: Advance directives completed. Ethical issues impacting care: No ethical issues identified. . Important Contacts Daughter Afshan/[facility] Ex- Erna Bravo Daughter Alondra . Prognosis Mr. Bravo is a 57 y/o male with a medical history significant for stage IV prostate cancer with metastasis to bone and bladder, insulin-dependent diabetes mellitus type 2, hypertension, CAD and CHF. Patient with progressive clinical decline with recent multiple complications to include recent subarachnoid hemorrhage, bilateral nephrostomy tubes placement secondary to bladder cancer/ obstruction, recurrent UTIs, sepsis, recent non-STEMI, worsening C. difficile colitis and profound physical deconditioning. Patient had a very high risk for further complications, continued decline and . Prognosis appears very poor for prolonged survival. . Code Status: Full Code Plan * CODE STATUS: FULL code. Risks, benefits and limitations of CPR, intubation and mechanical ventilation discussed at length with patient and daughter Afshan given patient's clinical condition. Daughter acting as HCS reiterated FULL code. * HEALTHCARE DECISION-MAKING: Patient with limited participation in goals of care secondary to encephalopathy. His mental status fluctuates, currently with a very poor insight into his clinical condition and overall poor prognosis. Unclear at this time if he will regain decision-making capacity. Advance directives have been completed, patient designated his daughter Afshan Bravo as healthcare surrogate decision maker, no alternate surrogate designated. Palliative care recommends SHARED decision-making with irvin Cavanaugh if patient is able to participate in goals of care conversation. * GOALS OF CARE: Patient verbalizing aggressive goals since admission, daughter Afshan Bravo acting as healthcare surrogate decision making reiterated aggressive goals to include FULL code. Morris reports that families goal of treatment is for prolongation of patient's survival even with invasive interventions such as CPR, intubation/mechanical ventilation, nephrostomy tube placement and/or colectomy with colostomy if offered/recommended. Daughter confirmed revocation of hospice services on 11/20/17, she reports that family is no longer interested in hospice services. * Shared concerns with daughter Afshan of patient's overall condition given prostate cancer with metastasis to bone and bladder, profound physical deconditioning, recent non-STEMI, current sepsis, UTI, worsening C. difficile colitis, among multiple other chronic ongoing comorbidities Shared concerns of patient's condition and overall poor prognosis given the above. Daughter reiterated aggressive management. She reports that family's goal of therapy is for prolongation of survival via aggressive management if necessary. Reviewed quality of life given increased symptom burden and progressive decline with multiple recent complications and hospitalizations. Daughter tells me that family wants patient to from cancer, discussed that patient is likely to from complications due to his multiple medical issues. Daughter states "my father is not ready to , he does not want to ". Active listening and ongoing emotional support provided. Discussed that it will come the time that patient will likely from complications in spite of aggressive management given again his debilitated state from his multiple medical issues. Daughter receptive to palliative care follow-ups, pending surgical consultation recommendations. Daughter verbalized that family is likely to proceed with colectomy and placement of colostomy if this would extend patient's survival. * SYMPTOMS: =Pain: Secondary to C. difficile colitis. Currently on hydromorphone 1 mg IV every 3 hours as needed and hydromorphone 6 mg every 4 hours as needed orally. Pain management deferred to attending/GI given active C. difficile colitis. May consider giving Relistor to help with peristalsis. = Debility: Progressive secondary to multiple chronic ongoing comorbidities. Not likely to improve. Family inquiring regarding rehabilitation vs home with home health. * Case discussed with bedside RN. * Palliative care contact information has been provided to patient and family. * Palliative care will continue to follow up for further clarification of goals of care as patient's clinical course continues to evolve. . Time Spent Total Floor Time (mins): 78 (Total time to include reviewing summarization of available medical records to include a multiple prior acute hospitalizations, physical exam, goals of care conversation with patient and daughter, case discussion with bedside RN.) >50% Counseling/Coord of Care: Yes Thank you for the opportunity to participate in the care of Mr. Bravo. Attestation To help prompt me to consider important information that might be impacting today's encounter and assessment, information from prior notes written by myself or my colleagues may have been "brought forward" into today's note. My signature on this note, however, is an attestation that I personally performed the exam, history, and/or decision-making noted today, and, unless otherwise indicated, the interactions with patient, family, and staff as well as the review of records all occurred today. I also attest that the listed assessment and stated plan reflect my best clinical judgment today based on the combination of historical information, prior notes, and today's exam/ interactions. When time spent is documented, it refers only to time spent today by the signer, or if indicated, combined time spent today by collaborating physician/nurse practitioner. Jacquelin Marie November 26, 2017 17:38
[2017-11-26] MEDS ORDERED: CLINIMIX E 4.25/5 2000 mL- >42 mls/hr IV SCH ×3 (20:00)
[2017-11-26] MEDS ORDERED: FAT EMULSION 20% INJ 250 ML (Daily over 8 hours) IV-CENTRAL SCH (20:00)
[2017-11-26] MEDS ORDERED: FAT EMULSION 20% INJ 250 ML (@10 mls/hr) IV SCH (20:00)
[2017-11-26] MEDS ORDERED: SODIUM CHLORIDE 23.4% INJ 5.5 MEQ, SODIUM ACETATE INJ 29.5 MEQ, POTASSIUM CHLORIDE INJ ... IV-CENTRAL SCH ×9 (20:00)
--- NOTE | 2017-11-26 22:03 | MB ---
cc: Romeo Diaz MD DATE: 11/26/2017 REASON FOR CONSULTATION: "Worsening C. diff colitis." HISTORY OF PRESENT ILLNESS: Mr. Bravo is an unfortunate 57-year-old gentleman with stage IV prostate cancer, widely metastatic, who has been in and out of the hospital on multiple occasions for multiple complications of his terminal disease. Apparently, he is currently hospitalized for some mental status changes and some falls at home. He was worked up and found to have a subarachnoid hemorrhage. The patient at some point complained of some abdominal pain and a CT of the abdomen and pelvis was obtained on 11/20/2017. The CT demonstrated thickening of the sigmoid and rectum of undetermined etiology. Apparently, the patient has had diarrhea for quite some time according to the chart. Overall, the patient is not oriented very well and not able to actively participate in my exam. He appears confused as to the time and date. He answers questions with different answers when he is asked to clarify a question. Overall, he is a very poor historian. His mother is at the bedside and she says "I do not know anything." From what I can tell in the chart, he had a rectal tube placed. He then apparently had an abdominal x-ray obtained yesterday, which showed thickening of the transverse colon. On my questioning, the patient complained of some right middle quadrant abdominal and back pain. He states he has not had any nausea or vomiting. According to the chart, he has not had any fevers. He has not been hypotensive nor tachycardic according to the chart. His current white count is actually the lowest it has been since he has been hospitalized at 10.7, with a hemoglobin of 10 and a platelet count of 229. He did have a positive C. difficile titer back on 11/19/2017. PAST MEDICAL HISTORY: Widely metastatic stage IV prostate cancer. He is also an insulin-dependent diabetic, hypertension, coronary artery disease, CHF, previous GI bleed. PAST SURGICAL HISTORY: He has had nephrostomy tubes placed multiple times. He has had an orchiectomy apparently for a testicular tumor. He has also had cardiac stents. MEDICATIONS: List is extensive. Please see the chart. ALLERGIES HE HAS EXTENSIVE ALLERGIES INCLUDING AMLODIPINE, ATORVASTATIN GLYBURIDE, METFORMIN, PRAVASTATIN AND SIMVASTATIN. SOCIAL HISTORY: Apparently, he does not smoke or drink. He does live at home with assistance. FAMILY HISTORY: Remarkable for coronary artery disease and pancreatic cancer. REVIEW OF SYSTEMS: Again, the patient reports some right-sided abdominal pain. He states that the pain medicine helps, but he is not getting enough. He denies any nausea or vomiting. He denies any fever or chills. He is unsure about his bowels and appears to currently have a rectal tube in place. PHYSICAL EXAMINATION: VITAL SIGNS: As stated above, the patient has been afebrile throughout his entire hospitalization. His pulse is 80, his blood pressure is 145/83. GENERAL: This is a disoriented, confused gentleman sitting in his [facility] bed with his mother at the bedside. HEENT: His sclerae are white. His oropharynx is clear and moist. NECK: Supple. No masses. LUNGS: Clear to auscultation bilaterally. HEART: S1, S2. No murmur. ABDOMEN: Soft, essentially nontender on my exam. He has no rebound or guarding. He has faint bowel sounds. He has no obvious hernias. Certainly no peritoneal signs. EXTREMITIES: Free range of motion x 4. NEUROLOGIC: He is confused, oriented only to name. IMAGING: As stated above, a CT scan performed 11/20 demonstrated thickening of the sigmoid colon and rectum. The only other abdominal x-ray he had was yesterday, on 11/25, which was read out as thickening of the transverse colon, with multiple blastic metastases and nephrostomy tubes present. IMPRESSION: Abdominal pain of undetermined etiology. PLAN: At this point, I see no clinical signs of worsening C. difficile colitis. Specifically, the patient is not febrile. He is not tachycardic. He is not hypotensive and he has a normal white blood cell count. I am assuming this diagnosis is obtained strictly from imaging studies which are 1 week old and 24 hours old. I do not see a clinical indication for a total abdominal colectomy for C. diff colitis at this time. I do not think the patient would tolerate a total abdominal colectomy with an end ileostomy. I explained to him that I did not feel he was a surgical candidate based on his medical comorbidities. Apparently him and his family have decided to resend his hospice care and would like to pursue aggressive medical measures. The indications for a total abdominal colectomy for C. diff colitis would be profound sepsis, free air/perforation. I would recommend continued medical management at this time. The patient has no indications for surgical intervention at this time. We will followup with him to see if his clinical condition changes. At this point, I would not recommend surgical intervention. Romeo MD JHONY He/MICHELLE , 08:12 PM , 10:02 PM
[2017-11-27] VITALS (12 sets, daily range): BP systolic 138–156; BP diastolic 75–89; PULSE 76–86; RESP 13–18; TEMP 98.3–98.8; O2SAT 96–100
[2017-11-27] MEDS: HYDROmorphone HCL PF 2 MG/ML VIAL IV PUSH PRN ×4 (00:44→14:10)
[2017-11-27] MEDS: VANCOMYCIN INJ 500 MG in SODIUM CHLORIDE 0.9% IRR BTL 250 ML IRRIGATION SCH ×2 (00:47→06:22)
[2017-11-27] MEDS: HYDROmorphone HCL 4 MG TAB PO PRN ×2 (01:30→06:11)
[2017-11-27] MEDS: CHLORHEXIDINE GLUCONATE 2 % 1 PACK (2 CLOTHS) TOP SCH (04:00)
[2017-11-27 05:51] LABS: AUTOMATED NEUTROPHIL # 8.9 TH/MM3 (1.8-7.7); BASOPHIL % 0.4 % (0.0-2.0); EOSINOPHIL # 0.2 TH/MM3 (0-0.4); EOSINOPHIL % 2.2 % (0.0-4.0); HEMATOCRIT 33.1 % (39.0-51.0); HEMOGLOBIN 10.6 GM/DL (13.0-17.0); LYMPH % 8.5 % (9.0-44.0); LYMPHOCYTE # 0.9 TH/MM3 (1.0-4.8); MEAN CORPUSCULAR HEMOGLOBIN 23.9 PG (27.0-34.0); MEAN CORPUSCULAR HGB CONC 31.9 % (32.0-36.0); MEAN PLATELET VOLUME 7.2 FL (7.0-11.0); MONO % 8.3 % (0.0-8.0); MONOCYTE # 0.9 TH/MM3 (0-0.9); NEUT % 80.6 % (16.0-70.0); PLATELET COUNT 191 TH/MM3 (150-450); RED BLOOD COUNT 4.42 MIL/MM3 (4.50-5.90); RED CELL DISTRIBUTION WIDTH 17.4 % (11.6-17.2)
[2017-11-27] MEDS: metroNIDAZOLE 500 MG INJ 100 ML IV SCH ×2 (06:12→13:39)
[2017-11-27 06:26] LABS: ALBUMIN 1.3 GM/DL (3.4-5.0); BICARBONATE 25.1 MEQ/L (21.0-32.0); CALCIUM 6.7 MG/DL (8.5-10.1); CREATININE 1.02 MG/DL (0.60-1.30); MAGNESIUM 1.5 MG/DL (1.5-2.5); PHOSPHORUS 1.8 MG/DL (2.5-4.9)
[2017-11-27 06:49] LABS: CALCIUM-PROTEIN CORRECTED 7.9 MG/DL (8.5-10.1); TOTAL PROTEIN 4.7 GM/DL (6.4-8.2)
[2017-11-27] MEDS: SODIUM CHLORIDE 0.9% FLUSH 10 ML FLUSH IV FLUSH SCH (08:17)
[2017-11-27] MEDS: VANCOMYCIN 500 MG VIAL (FOR ORAL USE ONLY) PO SCH ×2 (08:17→13:39)
[2017-11-27] MEDS: PANTOPRAZOLE SOD 40 MG DELAYED RELEASE TAB PO SCH (08:17)
[2017-11-27] MEDS: FLUCONAZOLE 100 MG TAB PO SCH (08:17)
[2017-11-27] MEDS: INSULIN ASPART SUPPLEMENTAL SCALE SQ SCH ×2 (09:08→12:00)
[2017-11-27] MEDS: [UNRECOGNIZED DRUG - OTHER] IV SCH ×3 (13:42)
[2017-11-27] MEDS: POTASSIUM CHLORIDE IV SCH ×3 (13:42)
[2017-11-27] MEDS: DEXTROSE 5% IV SCH ×3 (13:42)
[2017-11-27] MEDS: SODIUM BICARBONATE IV SCH ×3 (13:42)
--- NOTE | 2017-11-27 15:02 | HHI.PR ---
Subjective Subjective Notes Denies abdominal pain this am. Eating ok. No problems per RN at bedside Objective Vitals/I&O Vital Signs Date Time Temp Pulse Resp B/P (MAP) Pulse Ox O2 Delivery O2 Flow Rate FiO2 11/27/17 12:00 77 11/27/17 12:00 98.3 16 140/84 (102) 99 11/27/17 08:14 Nasal Cannula 3.00 11/26/17 07:00 50 Labs Laboratory Tests Test 11/27/17 05:23 White Blood Count 11.0 Red Blood Count 4.42 Hemoglobin 10.6 Hematocrit 33.1 Mean Corpuscular Volume 75.0 Mean Corpuscular Hemoglobin 23.9 Mean Corpuscular Hemoglobin Concent 31.9 Red Cell Distribution Width 17.4 Platelet Count 191 Mean Platelet Volume 7.2 Neutrophils (%) (Auto) 80.6 Lymphocytes (%) (Auto) 8.5 Monocytes (%) (Auto) 8.3 Eosinophils (%) (Auto) 2.2 Basophils (%) (Auto) 0.4 Neutrophils # (Auto) 8.9 Lymphocytes # (Auto) 0.9 Monocytes # (Auto) 0.9 Eosinophils # (Auto) 0.2 Basophils # (Auto) 0.0 CBC Comment DIFF FINAL Differential Comment Blood Urea Nitrogen 13 Creatinine 1.02 Random Glucose 244 Total Protein 4.7 Albumin 1.3 Calcium Level 6.7 Phosphorus Level 1.8 Magnesium Level 1.5 Sodium Level 138 Potassium Level 3.9 Chloride Level 105 Carbon Dioxide Level 25.1 Anion Gap 8 Estimat Glomerular Filtration Rate 75 Protein Corrected Calcium 7.9 Date/Time Source Procedure Growth Status 11/24/17 11:47 Blood Peripheral Aerobic Blood Culture - Preliminary NO GROWTH IN 3 DAYS Resulted 11/24/17 11:47 Blood Peripheral Anaerobic Blood Culture - Preliminary NO GROWTH IN 3 DAYS Resulted 11/19/17 18:15 Stool Stool Cryptosporidium Exam - Final NEGATIVE - NO CRYPTOSPORIDIUM ANTIGEN... Complete 11/19/17 18:15 Stool Stool Stool Pus (MIKEY) - Final NO WBC'S SEEN Complete 11/19/17 18:15 Stool Stool Giardia Antigen (MIKEY) - Final NEGATIVE - NO GIARDIA ANTIGEN DETECTE... Complete 11/23/17 18:50 Urine Clean Catch Urine Culture - Final Lyric Albicans Complete Abdomen: Non-distended, Non-tender, BS normal A/P Assessment and Plan Abdominal pain - resolved. No indication for surgical intervention' Patient is poor surgical candidate for any procedure. Recommend medical management, supportive care. Will see prn, please call with any concerns. Romeo Diaz MD November 27, 2017 15:02
--- NOTE | 2017-11-27 16:40 | HHI.DS ---
Discharge Summary Admission Date November 17, 2017 at 14:07 Discharge Date: November 27, 2017 Admitting Diagnosis Sepsis/UTI/hypotension/acute renal failure (1) Acute metabolic encephalopathy ICD Code: G93.41 - Metabolic encephalopathy Status: Resolved (2) UTI (urinary tract infection) ICD Code: N39.0 - Urinary tract infection, site not specified Status: Acute (3) Delirium due to another medical condition ICD Code: F05 - Delirium due to known physiological condition Status: Acute (4) Debility ICD Code: R53.81 - Other malaise (5) Acute on chronic renal failure ICD Code: N17.9 - Acute kidney failure, unspecified; N18.9 - Chronic kidney disease, unspecified Status: Acute (6) SAH (subarachnoid hemorrhage) ICD Code: I60.9 - Nontraumatic subarachnoid hemorrhage, unspecified Status: Acute Procedures Placement of bilateral nephrostomy tubes. Please see report Brief History - From Admission History of Present Illness HPI This is a 57-year-old male that presented to the ED with complaints of recurrent falls and complaints of right shoulder pain. The patient's medical history significant for hypertension, hyperlipidemia, congestive heart failure, coronary artery disease, anxiety disorder,depression, stage IV prostate cancer with bone metastasis, previous testicular cancer, status post treatment. The patient currently is registered with [facility] hospice. He is currently fairly disoriented in the ER, does not really know why he is here. According to the patient's , there is difficulty caring for him at home. Review of medical records Echo 06/16/17 showed an EF30-35%, patient previously followed by Dr. Ram. The patient was recently admitted 10/06/17 for subarachnoid hemorrhage and altered mental status, UTI and encephalopathy and left AMA. Imaging and laboratory studies revealed dehydration with an elevated creatinine of 3.49 and possible urosepsis, culture pending. Patient was bolused with 1 L of fluid and received Zosyn. upon initial admission the patient had systolic blood pressure 80-90, critical care medicine was consulted. History PFSH Past Medical History Autoimmune Disease: No Anxiety: Yes Depression: No Cancer: Yes (TESTICULAR, PROSTATE) Cardiac Catheterization: Yes Cardiovascular Problems: Yes High Cholesterol: Yes Congestive Heart Failure: Yes Cerebrovascular Accident: No Diabetes: Yes Patient Takes Glucophage: No Diminished Hearing: No Endocrine: Yes Gastrointestinal Disorders: Yes (nausea vomiting ) Genitourinary: No Hypertension: Yes Immune Disorder: No Implanted Vascular Access Dvce: Yes Musculoskeletal: No Neurologic: Yes (NEUROPATHY) Psychiatric: Yes Reproductive: No Respiratory: Yes Migraines: No Radiation Therapy: No Seizures: No Thyroid Disease: No Tetanus Vaccination: < 5 Years Influenza Vaccination: Yes Past Surgical History Abdominal Surgery: No AICD: No Arteriovenous Shunt: No Body Medical Devices: cardiac stent Cardiac Surgery: Yes Coronary Stent: Yes Ear Surgery: No Endocrine Surgery: No Eye Surgery: No Genitourinary Surgery: Yes (BILAT NEPH TUBES, TESTICULAR SX) Gynecologic Surgery: No Insulin Pump: No Joint Replacement: No Oral Surgery: No Pacemaker: No Thoracic Surgery: No Other Surgery: Yes (TESTICULAR SX DUE TO CA) Social History Alcohol Use: No Tobacco Use: No Substance Use: No Allergies-Medications Allergies-Medications (Allergen,Severity, Reaction): Coded Allergies: glyburide (Verified Allergy, Severe, RASH, 11/17/17) amlodipine (Verified Allergy, Unknown, 11/17/17) rhabdomyolysis atorvastatin (Verified Allergy, Unknown, 11/17/17) rhabdomyolysis metformin (Verified Allergy, Unknown, Rash, 11/17/17) pravastatin (Verified Allergy, Unknown, 11/17/17) rhabdomyolysis simvastatin (Verified Allergy, Unknown, 11/17/17) rhabdomyolysis Reported Meds & Prescriptions Reported Meds & Active Scripts Active Sucralfate 1 Gram Tab 1 Gm PO TID on empty stomach Haloperidol 1 Mg Tab 1 Mg PO BID Senna-Plus (Sennosides-Docusate Sodium) 8.6-50 Mg Tab 3 Tab PO BID Prochlorperazine Maleate 10 Mg Tab 10 Mg PO Q4H PRN Omeprazole 20 Mg Tab 20 Mg PO BID Escitalopram (Escitalopram Oxalate) 10 Mg Tab 10 Mg PO DAILY Coreg (Carvedilol) 12.5 Mg Tab 12.5 Mg PO BID Gabapentin 300 Mg Cap 300 Mg PO BID Flomax (Tamsulosin HCl) 0.4 Mg Cap 0.4 Mg PO HS Commode 3-in-1 (Device) 1 Mis Mis Ea .ROUTE DIRECTED Reported Lorazepam 2 Mg Tab 2 Mg PO Q2HR PRN Furosemide 40 Mg Tab 40 Mg PO DAILY Duoneb (Ipratropium-Albuterol Neb) 0.5-2.5 Mg/3 Ml Neb 1 Nebule INH Q4HR NEB Hydromorphone (Hydromorphone HCl) 4 Mg Tab 6 Mg PO Q4HR PRN Hydromorphone (Hydromorphone HCl) 4 Mg Tab 4 Mg PO Q4H PRN Lantus Inj (Insulin Glargine) 1,000 Unit/10 Ml Vial 15 Units SQ HS Novolog Flexpen Inj (Insulin Aspart) 300 Unit/3 Ml Pen SQ TIDAC PER SLIDING SCALE ROS Review of Systems ROS Limitations: Altered Mental Status CBC/BMP: 11/27/17 0523 11/27/17 0523 Significant Findings Laboratory Tests Test 11/25/17 06:52 11/25/17 20:35 11/25/17 22:00 11/26/17 07:55 White Blood Count 12.6 TH/MM3 (4.0-11.0) Red Blood Count 4.24 MIL/MM3 (4.50-5.90) 4.16 MIL/MM3 (4.50-5.90) Hemoglobin 10.3 GM/DL (13.0-17.0) 10.5 GM/DL (13.0-17.0) Hematocrit 32.4 % (39.0-51.0) 30.9 % (39.0-51.0) Mean Corpuscular Volume 76.5 FL (80.0-100.0) 74.3 FL (80.0-100.0) Mean Corpuscular Hemoglobin 24.2 PG (27.0-34.0) 25.1 PG (27.0-34.0) Mean Corpuscular Hemoglobin Concent 31.7 % (32.0-36.0) Red Cell Distribution Width 17.4 % (11.6-17.2) 17.4 % (11.6-17.2) Neutrophils (%) (Auto) 83.0 % (16.0-70.0) 80.8 % (16.0-70.0) Lymphocytes (%) (Auto) 8.5 % (9.0-44.0) 8.4 % (9.0-44.0) Neutrophils # (Auto) 10.5 TH/MM3 (1.8-7.7) 8.6 TH/MM3 (1.8-7.7) Neutrophils % (Manual) 86 % (16-70) 82 % (16-70) Band Neutrophils % 8 % (0-6) 9 % (0-6) Lymphocytes % 1 % (9-44) 2 % (9-44) Neutrophils # (Manual) 12.0 TH/MM3 (1.8-7.7) 10.0 TH/MM3 (1.8-7.7) Myelocytes 1 % (0-0) 2 % (0-0) Blood Urea Nitrogen 27 MG/DL (7-18) Creatinine 1.84 MG/DL (0.60-1.30) Random Glucose 189 MG/DL (74-106) 173 MG/DL (74-106) Albumin 1.0 GM/DL (3.4-5.0) 1.4 GM/DL (3.4-5.0) Calcium Level 6.6 MG/DL (8.5-10.1) 6.7 MG/DL (8.5-10.1) Phosphorus Level 1.4 MG/DL (2.5-4.9) 0.9 MG/DL (2.5-4.9) Potassium Level 3.3 MEQ/L (3.5-5.1) 3.4 MEQ/L (3.5-5.1) Chloride Level 108 MEQ/L (98-107) Estimat Glomerular Filtration Rate 38 ML/MIN (>89) 62 ML/MIN (>89) Mean Platelet Volume 6.9 FL (7.0-11.0) Lymphocytes # (Auto) 0.9 TH/MM3 (1.0-4.8) Toxic Vacuolation PRESENT (NONE SEEN) Magnesium Level 1.4 MG/DL (1.5-2.5) Test 11/27/17 05:23 Red Blood Count 4.42 MIL/MM3 (4.50-5.90) Hemoglobin 10.6 GM/DL (13.0-17.0) Hematocrit 33.1 % (39.0-51.0) Mean Corpuscular Volume 75.0 FL (80.0-100.0) Mean Corpuscular Hemoglobin 23.9 PG (27.0-34.0) Mean Corpuscular Hemoglobin Concent 31.9 % (32.0-36.0) Red Cell Distribution Width 17.4 % (11.6-17.2) Neutrophils (%) (Auto) 80.6 % (16.0-70.0) Lymphocytes (%) (Auto) 8.5 % (9.0-44.0) Monocytes (%) (Auto) 8.3 % (0.0-8.0) Neutrophils # (Auto) 8.9 TH/MM3 (1.8-7.7) Lymphocytes # (Auto) 0.9 TH/MM3 (1.0-4.8) Random Glucose 244 MG/DL (74-106) Total Protein 4.7 GM/DL (6.4-8.2) Albumin 1.3 GM/DL (3.4-5.0) Calcium Level 6.7 MG/DL (8.5-10.1) Phosphorus Level 1.8 MG/DL (2.5-4.9) Estimat Glomerular Filtration Rate 75 ML/MIN (>89) Protein Corrected Calcium 7.9 MG/DL (8.5-10.1) Imaging Last Impressions Abdomen X-Ray 11/25/17 0000 Signed Impressions: CONCLUSION: 1. Right nephroureteral catheter and left nephrostomy tube appear in good posi tion. 2. Slight worsening of the wall thickening involving the transverse colon. 3. Blastic metastases. Abdomen/Pelvis CT 11/20/17 0000 Signed Impressions: CONCLUSION: 1. Interval development of moderate to severe right-sided hydronephrosis despi te double-J ureteral stent and percutaneous nephrostomy catheter in apparently good position. Hyperdense material in the inferior pole likely reflects debris/ calculi or hemorrhage which may result in catheter malfunction. Evaluation of t he existing pigtail cystostomy catheter and output is recommended. Catheter may need to be exchanged for improved patency. 2. Stable moderate to severe left-sided hydronephrosis following removal of le ft-sided nephrostomy catheter. 3. Diffuse mesenteric edema and trace ascites. 4. Diffuse circumferential sigmoid and rectal wall thickening. Although coloni c wall thickening can be seen with hypoalbuminemia/mesenteric edema, this is li mited to the sigmoid and rectum. Differential considerations include radiation- induced colitis/proctitis, infection and ischemic etiologies. 5. Redemonstration diffuse blastic osseous metastatic disease with interval pr ogression of retroperitoneal adenopathy. 6. Patchy right basilar airspace consolidation with very trace pleural effusio ns. Head CT 11/17/17 1106 Signed Impressions: Service Date/Time: Friday, November 17, 2017 13:09 - CONCLUSION: 1. Subtle increased density in the extra-axial right frontal mid to low convexities which may reflect subacute to chronic extra-axial blood products. 2. Moderate diffuse stable volume loss and periventricular small vessel ischemic white matter demyelination out of proportion to age. Gibson Wagner MD Chest X-Ray 11/17/17 1106 Signed Impressions: Service Date/Time: Friday, November 17, 2017 11:32 - CONCLUSION: 1. Minimal left lung base atelectasis. 2. Diffuse osseous metastatic disease. Gibson Wagner MD PE at Discharge GENERAL: CARDIOVASCULAR: Regular rate and rhythm. RESPIRATORY: No accessory muscle use. Clear to auscultation. Breath sounds equal bilaterally. GASTROINTESTINAL: Abdomen soft, non-tender, nondistended. Hepatic and splenic margins not palpable. MUSCULOSKELETAL: Extremities without clubbing, cyanosis, or edema. No obvious deformities. NEUROLOGICAL: Awake and alert. No obvious cranial nerve deficits. Motor grossly within normal limits. Five out of 5 muscle strength in the arms and legs. Normal speech. PSYCHIATRIC: Appropriate mood and affect; insight and judgment normal. Hospital Course == 11/25/17 //MIRYAM. Improving renal function. Creatinine 1.2 from 1.8 yesterday. Status post bilateral nephrostomy tubes. Appreciate IR assistance. Continue to monitor. //Non-gap metabolic acidosis. This has resolved, however will continue IV fluids of bicarb due to diarrhea. //Severe sepsis. Leukocytosis resolved 10.7. Continue antibiotics and antifungals as per ID. Repeat cultures pending. Appreciate assistance. //Hypophosphatemia, hypokalemia. Replace and monitor //Severe C. difficile infection. //Abdominal distention. = Worsening abdominal pain starting 11/25 with worsening bowel distention, thumbprinting of large bowel on x-ray. Continue p.o. vancomycin, IV metronidazole, vancomycin retention enemas with rectal tube ID following. //Palliative care. Patient and mother have agreed to palliative care consult. Patient reports that does not have a phone. This is a 57-year-old male with presumed urosepsis, with hypotension altered mental status with recurrent frequent falls. Patient recently admitted with acute on chronic subarachnoid hemorrhage. CT shows subacute on chronic extra- axial collections of blood. Neurosurgery has been consulted. Plan by systems: Neurologic: //Encephalopathy //Anxiety disorder //Depression Neuro checks per ICU protocol CT brain-Subtle increased density in the extra-axial right frontal mid to low convexities which may reflect subacute to chronic extra-axial blood products. Moderate diffuse stable volume loss and periventricular small vessel ischemic white matter demyelination out of proportion to age. Neurosurgery consulted- I discussed with Dr. Cabrera , neurosurgeon, who reviewed imaging and assessed patient, no surgical intervention required at this time Avoid sedatives Will hold escitalopram 10 mg/day, Haldol PRN, Ativan PRN home medications Respiratory: Maintain O2 sat greater than 92%. Provide O2 14 L/min nasal cannula Duo nebs every 4 hours as needed //Cardiovascular: //Chronic systolic heart failure //CAD //Hypertension BNP slightly elevated Trend troponin level. Troponins are trending down. Maintain MAP greater than 65 Hold carvedilol 12.5 twice daily, and Lasix 40 mg/day ( home medications) in the setting of hypotension Patient denies chest pain at this time Renal: //Presumed urosepsis //BPH //Acute on chronic kidney disease //Prostate cancer with metastasis //Remote history of testicular cancer //Bilateral nephrostomy tubes Hold Tamulosin in the setting of hypotension Last antibiotics fluconazole and Ceftin 10 day course 10/15/2017 for UTI -- Strict I/Os Restart home dose dilaudid PO for pain FEN/GI: //Nausea //Dehydration //Heart healthy diet Patient normally takes omeprazole twice daily, continue PPI Received 2 L normal saline IV bolus in the ED Normal saline 84 cc/hour Creatinine 3.49, continue to monitor Alkaline phosphatase 170, no pain on palpation-consider gallbladder ultrasound Heme/ID: //Leukocytosis, improving //C. difficile colitis. //UTI with Enterococcus faecalis pansensitive //stage IV prostate cancer with bone metastasis, previous testicular cancer, status post treatment. Follow-up urine and blood cultures Trend lactate DC Zosyn . Start ciprofloxacin Started Vanco po , continue Flagyl for C. difficile Monitor CBC Monitor electrolytes and replace as needed = 11/23. Sepsis. Pending lactic acid. Start treatment for severe C. difficile. Consult ID for treatment of severe C. difficile. Endocrine: Glucose monitoring as need -- SSI GI: //Bloody diarrhea. Monitor H&H and transfuse if need. Consulted GI. Patient is however refusing any procedures. //With C. difficile colitis as above + C. difficile. other stool studies pending = 11/23. Severe C. difficile infection. Will start by mouth vancomycin. Continue IV metronidazole as well. // nephrostomy tube leaking consult his urology Dr Lockhart //Prophylaxis: GI Prophylaxis Protonix DVT Prophylaxis -- SCDs Hold pharmacological DVT prophylaxis at this time. Lines: Peripheral IVs 2. Central line if indicated Discharge Planning This patient remains ill. DC when improved and cleared by consultants. Code Status Full Discussed Condition With Dr. Brenner, patient's mother. Patient is registered with [facility] hospice secondary to multiple medical comorbidities. Upon inquiry patient requests to remain full code and all aggressive measures to be instituted. Previously seen by palliative care Ms. Ayala. Hospice signed off GI consult as patient with bloody diarrhea. However patient is refusing further procedures. Consult palliative care. Patient is with hospice s oP and currently is full code his plans are for home with hospice? However patient decided full code and declined hospice at this time. Hospice signed off. Pt Condition on Discharge: Stable Discharge Disposition: Hospice/Med Facility Discharge Time: > 30 minutes Discharge Instructions DIET: Follow Instructions for: As Tolerated, No Restrictions Activities you can perform: Regular-No Restrictions Bennie Meyer MD November 27, 2017 16:39
--- NOTE | 2017-11-27 19:12 | HHI.HCPN ---
Reason for visit a. To assist with evaluation and management of symptoms including: pain, debility. b. To assist medical decision maker(s) with: better understanding of current medical conditions; weighing benefits/burdens of medical treatment options; making medical treatment decisions. . Subjective/Interval History Patient is intermittently confused. He denied pain at time of my visit, but has required 6 doses of 1 mg IV hydromorphone over the last 24 hours in addition to 5 doses of 6 mg PO hydromorphone over 24 hours. Denies breathing difficulties. Denies nausea. Last bowel movement 11/24/17. Draining urine via his nephrostomy tubes. Eating minimal amounts. Family had requested re-enrollment with hospice services. Discussed case with hospice nurse and spoke directly to patient and . My concern was that patient had been on and off hospice several times and I wanted to make sure goals were indeed hospice appropriate this time. Patient is confused but has indicated a desire for comfort measures. Patient/ family had been resistant to signing a DNR in the past but are now willing. They are clear that they do not plan to bring the patient back to the hospital again. They desire a comfortable . I inquired about the change of mind and family reported that they were in the process of adopting a grandson, and allowing the patient to before final adoption was in place would have interfered with those arrangements. Now that the papers are complete, they are open to the patient having a comfortable . . Family/friend interactions As noted above. . Advance Directives Health Care Surrogate: Copy in medical record Advance Directive Specifics Date completed: 10/08/2017. . Health Care Surrogate(s): Patient electing daughter Afshan Bravo as healthcare surrogate decision maker. No alternative HCS. . Significant change in goals: Patient and family desire re-enrollment with hospice as noted above. . Objective Vital Signs Date Time Temp Pulse Resp B/P (MAP) Pulse Ox O2 Delivery O2 Flow Rate FiO2 11/27/17 16:00 80 11/27/17 14:40 18 11/27/17 14:00 80 11/27/17 12:00 77 11/27/17 12:00 98.3 77 16 140/84 (102) 99 11/27/17 10:00 80 11/27/17 08:14 98 Nasal Cannula 3.00 11/27/17 08:00 98.8 76 18 138/75 (96) 99 11/27/17 08:00 76 11/27/17 07:00 94 Nasal Cannula 2.00 11/27/17 06:00 84 11/27/17 05:00 80 11/27/17 04:00 83 11/27/17 04:00 98.5 83 14 156/89 (111) 96 11/27/17 02:30 18 11/27/17 02:00 86 11/27/17 00:00 78 11/27/17 00:00 98.7 79 13 146/78 (100) 100 11/26/17 22:00 81 11/26/17 20:31 94 Nasal Cannula 2.00 11/26/17 20:00 98.6 79 13 146/78 (100) 100 11/26/17 20:00 79 11/26/17 19:00 100 Nasal Cannula 2.00 Intake & Output 11/27/17 11/27/17 07:00 19:00 Intake Total 300 ml Output Total 950 ml Balance -650 ml Intake Oral 200 ml IV Total 100 ml Drainage Total 950 ml . Physical Exam CONSTITUTIONAL/GENERAL: This is an adequately nourished patient . No distress at time of my visit. He is intermittently confused. TUBES/LINES/DRAINS: Nasal cannula, PIV's, SCDs, bilateral nephrostomy tubes, rectal tube. SKIN: No jaundice, rashes, or lesions. Ecchymoses on upper extremities. No wounds seen anteriorly. Skin temperature appropriate. Not diaphoretic. EYES: Pupils equal and round . Extraocular motions intact. No scleral icterus. No injection or drainage. ENT: Hearing grossly normal. Nose without bleeding or purulent drainage. Moist oral mucosa. NECK: Trachea midline. Supple, nontender. CARDIOVASCULAR: Regular rate and rhythm without murmurs, gallops, or rubs. Peripheral pulses symmetric. RESPIRATORY/CHEST: Symmetric, unlabored respirations. Clear to auscultation. Breath sounds equal bilaterally. No wheezes, rales, or rhonchi. GASTROINTESTINAL: Abdomen round, distended. Mildly tender to palpation. Bowel sounds present. GENITOURINARY: Without palpable bladder distension. Bilateral nephrostomy tubes in place, moderate amount of yellow urine. MUSCULOSKELETAL: Extremities without clubbing, cyanosis, or edema. No mottling or clubbing. NEUROLOGICAL: Awake and alert to self. Confused as to place and situation. Verbal. Moves all extremities. PSYCHIATRIC: calm. . Diagnostic Tests Laboratory Laboratory Tests Test 11/25/17 06:52 11/25/17 20:35 11/25/17 22:00 11/26/17 07:55 White Blood Count 12.6 TH/MM3 (4.0-11.0) 10.7 TH/MM3 (4.0-11.0) Red Blood Count 4.24 MIL/MM3 (4.50-5.90) 4.16 MIL/MM3 (4.50-5.90) Hemoglobin 10.3 GM/DL (13.0-17.0) 10.5 GM/DL (13.0-17.0) Hematocrit 32.4 % (39.0-51.0) 30.9 % (39.0-51.0) Mean Corpuscular Volume 76.5 FL (80.0-100.0) 74.3 FL (80.0-100.0) Mean Corpuscular Hemoglobin 24.2 PG (27.0-34.0) 25.1 PG (27.0-34.0) Mean Corpuscular Hemoglobin Concent 31.7 % (32.0-36.0) 33.8 % (32.0-36.0) Red Cell Distribution Width 17.4 % (11.6-17.2) 17.4 % (11.6-17.2) Platelet Count 253 TH/MM3 (150-450) 229 TH/MM3 (150-450) Mean Platelet Volume 7.2 FL (7.0-11.0) 6.9 FL (7.0-11.0) Neutrophils (%) (Auto) 83.0 % (16.0-70.0) 80.8 % (16.0-70.0) Lymphocytes (%) (Auto) 8.5 % (9.0-44.0) 8.4 % (9.0-44.0) Monocytes (%) (Auto) 5.4 % (0.0-8.0) 7.7 % (0.0-8.0) Eosinophils (%) (Auto) 2.7 % (0.0-4.0) 2.7 % (0.0-4.0) Basophils (%) (Auto) 0.4 % (0.0-2.0) 0.4 % (0.0-2.0) Neutrophils # (Auto) 10.5 TH/MM3 (1.8-7.7) 8.6 TH/MM3 (1.8-7.7) Lymphocytes # (Auto) 1.1 TH/MM3 (1.0-4.8) 0.9 TH/MM3 (1.0-4.8) Monocytes # (Auto) 0.7 TH/MM3 (0-0.9) 0.8 TH/MM3 (0-0.9) Eosinophils # (Auto) 0.3 TH/MM3 (0-0.4) 0.3 TH/MM3 (0-0.4) Basophils # (Auto) 0.1 TH/MM3 (0-0.2) 0.0 TH/MM3 (0-0.2) CBC Comment AUTO DIFF AUTO DIFF Differential Total Cells Counted 100 100 Neutrophils % (Manual) 86 % (16-70) 82 % (16-70) Band Neutrophils % 8 % (0-6) 9 % (0-6) Lymphocytes % 1 % (9-44) 2 % (9-44) Monocytes % 4 % (0-8) 3 % (0-8) Neutrophils # (Manual) 12.0 TH/MM3 (1.8-7.7) 10.0 TH/MM3 (1.8-7.7) Myelocytes 1 % (0-0) 2 % (0-0) Differential Comment FINAL DIFF MANUAL FINAL DIFF MANUAL Platelet Estimate NORMAL (NORMAL) NORMAL (NORMAL) Platelet Morphology Comment NORMAL (NORMAL) NORMAL (NORMAL) Blood Urea Nitrogen 27 MG/DL (7-18) 18 MG/DL (7-18) Creatinine 1.84 MG/DL (0.60-1.30) 1.20 MG/DL (0.60-1.30) Random Glucose 189 MG/DL (74-106) 173 MG/DL (74-106) Albumin 1.0 GM/DL (3.4-5.0) 1.4 GM/DL (3.4-5.0) Calcium Level 6.6 MG/DL (8.5-10.1) 6.7 MG/DL (8.5-10.1) Phosphorus Level 1.4 MG/DL (2.5-4.9) 0.9 MG/DL (2.5-4.9) Magnesium Level 1.6 MG/DL (1.5-2.5) 1.4 MG/DL (1.5-2.5) Sodium Level 139 MEQ/L (136-145) 138 MEQ/L (136-145) Potassium Level 3.3 MEQ/L (3.5-5.1) 3.4 MEQ/L (3.5-5.1) Chloride Level 108 MEQ/L (98-107) 107 MEQ/L (98-107) Carbon Dioxide Level 23.2 MEQ/L (21.0-32.0) 23.6 MEQ/L (21.0-32.0) Anion Gap 8 MEQ/L (5-15) 7 MEQ/L (5-15) Estimat Glomerular Filtration Rate 38 ML/MIN (>89) 62 ML/MIN (>89) Lactic Acid Level 1.6 mmol/L (0.4-2.0) Nasal Screen MRSA (PCR) MRSA NOT DETECTED (NOT Eosinophils % 2 % (0-4) Toxic Vacuolation PRESENT (NONE SEEN) Test 11/27/17 05:23 White Blood Count 11.0 TH/MM3 (4.0-11.0) Red Blood Count 4.42 MIL/MM3 (4.50-5.90) Hemoglobin 10.6 GM/DL (13.0-17.0) Hematocrit 33.1 % (39.0-51.0) Mean Corpuscular Volume 75.0 FL (80.0-100.0) Mean Corpuscular Hemoglobin 23.9 PG (27.0-34.0) Mean Corpuscular Hemoglobin Concent 31.9 % (32.0-36.0) Red Cell Distribution Width 17.4 % (11.6-17.2) Platelet Count 191 TH/MM3 (150-450) Mean Platelet Volume 7.2 FL (7.0-11.0) Neutrophils (%) (Auto) 80.6 % (16.0-70.0) Lymphocytes (%) (Auto) 8.5 % (9.0-44.0) Monocytes (%) (Auto) 8.3 % (0.0-8.0) Eosinophils (%) (Auto) 2.2 % (0.0-4.0) Basophils (%) (Auto) 0.4 % (0.0-2.0) Neutrophils # (Auto) 8.9 TH/MM3 (1.8-7.7) Lymphocytes # (Auto) 0.9 TH/MM3 (1.0-4.8) Monocytes # (Auto) 0.9 TH/MM3 (0-0.9) Eosinophils # (Auto) 0.2 TH/MM3 (0-0.4) Basophils # (Auto) 0.0 TH/MM3 (0-0.2) CBC Comment DIFF FINAL Differential Comment Blood Urea Nitrogen 13 MG/DL (7-18) Creatinine 1.02 MG/DL (0.60-1.30) Random Glucose 244 MG/DL (74-106) Total Protein 4.7 GM/DL (6.4-8.2) Albumin 1.3 GM/DL (3.4-5.0) Calcium Level 6.7 MG/DL (8.5-10.1) Phosphorus Level 1.8 MG/DL (2.5-4.9) Magnesium Level 1.5 MG/DL (1.5-2.5) Sodium Level 138 MEQ/L (136-145) Potassium Level 3.9 MEQ/L (3.5-5.1) Chloride Level 105 MEQ/L (98-107) Carbon Dioxide Level 25.1 MEQ/L (21.0-32.0) Anion Gap 8 MEQ/L (5-15) Estimat Glomerular Filtration Rate 75 ML/MIN (>89) Protein Corrected Calcium 7.9 MG/DL (8.5-10.1) . Result Diagram: 11/27/17 0523 11/27/1723 Microbiology Microbiology Date/Time Source Procedure Growth Status 11/24/17 11:47 Blood Peripheral Aerobic Blood Culture - Preliminary NO GROWTH IN 3 DAYS Resulted 11/24/17 11:47 Blood Peripheral Anaerobic Blood Culture - Preliminary NO GROWTH IN 3 DAYS Resulted 11/19/17 18:15 Stool Stool Cryptosporidium Exam - Final NEGATIVE - NO CRYPTOSPORIDIUM ANTIGEN... Complete 11/19/17 18:15 Stool Stool Stool Pus (MIKEY) - Final NO WBC'S SEEN Complete 11/19/17 18:15 Stool Stool Giardia Antigen (MIKEY) - Final NEGATIVE - NO GIARDIA ANTIGEN DETECTE... Complete 11/23/17 18:50 Urine Clean Catch Urine Culture - Final Lyric Albicans Complete . Imaging Last Impressions Abdomen X-Ray 11/25/17 0000 Signed Impressions: CONCLUSION: 1. Right nephroureteral catheter and left nephrostomy tube appear in good posi tion. 2. Slight worsening of the wall thickening involving the transverse colon. 3. Blastic metastases. Abdomen/Pelvis CT 11/20/17 0000 Signed Impressions: CONCLUSION: 1. Interval development of moderate to severe right-sided hydronephrosis despi te double-J ureteral stent and percutaneous nephrostomy catheter in apparently good position. Hyperdense material in the inferior pole likely reflects debris/ calculi or hemorrhage which may result in catheter malfunction. Evaluation of t he existing pigtail cystostomy catheter and output is recommended. Catheter may need to be exchanged for improved patency. 2. Stable moderate to severe left-sided hydronephrosis following removal of le ft-sided nephrostomy catheter. 3. Diffuse mesenteric edema and trace ascites. 4. Diffuse circumferential sigmoid and rectal wall thickening. Although coloni c wall thickening can be seen with hypoalbuminemia/mesenteric edema, this is li mited to the sigmoid and rectum. Differential considerations include radiation- induced colitis/proctitis, infection and ischemic etiologies. 5. Redemonstration diffuse blastic osseous metastatic disease with interval pr ogression of retroperitoneal adenopathy. 6. Patchy right basilar airspace consolidation with very trace pleural effusio ns. Head CT 11/17/17 1106 Signed Impressions: Service Date/Time: Friday, November 17, 2017 13:09 - CONCLUSION: 1. Subtle increased density in the extra-axial right frontal mid to low convexities which may reflect subacute to chronic extra-axial blood products. 2. Moderate diffuse stable volume loss and periventricular small vessel ischemic white matter demyelination out of proportion to age. Gibson Wagner MD Chest X-Ray 11/17/17 1106 Signed Impressions: Service Date/Time: Friday, November 17, 2017 11:32 - CONCLUSION: 1. Minimal left lung base atelectasis. 2. Diffuse osseous metastatic disease. Gibson Wagner MD . Procedures * 11/23/17 -left nephrostomy tube replaced . Assessment and Plan Disease Oriented Problem List: (1) Severe sepsis (2) Prostate cancer metastatic to multiple sites (3) Metastasis to bone (4) CAD (coronary artery disease) (5) Hypertension (6) DM (diabetes mellitus) (7) Acute renal failure (8) Non-ST elevation NV (NSTEMI) (9) UTI (urinary tract infection) (10) Bilateral ureteral obstruction (11) Encephalopathy Symptom Scale: (1) Abdominal pain 0-10 Scale: Unable to quantify (2) Debility 0-10 Scale: Unable to quantify Pertinent Non-Medical Issues Psychosocial: Patient originally from [place], [place]. Father is Indian , mother is [place]ijani. Moved to [place] in 1997. 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 No service. Patient is , previously for 17 years. Has 2 daughters, Afshan and Alondra who are twins. Spiritual: Azerbaijani islam. Legal: Advance directives completed. Ethical issues impacting care: No ethical issues identified. . Important Contacts Daughter Afshan/[facility] Ex- Erna Bravo Daughter Alondra . Prognosis Mr. Bravo is a 57 y/o male with a medical history significant for stage IV prostate cancer with metastasis to bone and bladder, insulin-dependent diabetes mellitus type 2, hypertension, CAD and CHF. Patient with progressive clinical decline with recent multiple complications to include recent subarachnoid hemorrhage, bilateral nephrostomy tubes placement secondary to bladder cancer/ obstruction, recurrent UTIs, sepsis, recent non-STEMI, worsening C. difficile colitis and profound physical deconditioning. Patient had a very high risk for further complications, continued decline and . Prognosis appears very poor for prolonged survival. . Code Status: No Code Plan * CODE STATUS: NO CODE -- code status changed to NO CODE per conversation with patient and family on 11/27/17. * HEALTHCARE DECISION-MAKING: Patient with limited participation in goals of care secondary to encephalopathy. His mental status fluctuates, currently with a very poor insight into his clinical condition and overall poor prognosis. Unclear at this time if he will regain decision-making capacity. Advance directives have been completed, patient designated his daughter Afshan Bravo as healthcare surrogate decision maker, no alternate surrogate designated. Palliative care recommends SHARED decision-making with irivn Cavanaugh if patient is able to participate in goals of care conversation. * GOALS OF MEDICAL TREATMENT: Goals of medical treatment have changed. No desire to pursue surgery. Patient/family want to re-enroll with hospice. Resusciation status changed to No Code. Family has expressed a desire NOT to have patient return to hospital. * SYMPTOMS: =Pain: Secondary to C. difficile colitis. Currently on hydromorphone 1 mg IV every 3 hours as needed and hydromorphone 6 mg every 4 hours as needed orally. Patient has required substantial opiate use over last 24 hours. . = Debility: Progressive secondary to multiple chronic ongoing comorbidities. Not likely to improve. * Case discussed with hospice nurse. * I agreed to hospice re-enrollment and care center placement to better control pain. . Attestation To help prompt me to consider important information that might be impacting today's encounter and assessment, information from prior notes written by myself or my colleagues may have been "brought forward" into today's note. My signature on this note, however, is an attestation that I personally performed the exam, history, and/or decision-making noted today, and, unless otherwise indicated, the interactions with patient, family, and staff as well as the review of records all occurred today. I also attest that the listed assessment and stated plan reflect my best clinical judgment today based on the combination of historical information, prior notes, and today's exam/ interactions. When time spent is documented, it refers only to time spent today by the signer, or if indicated, combined time spent today by collaborating physician/nurse practitioner. . Raudel Braden MD November 27, 2017 19:12
== END 2017-11-27 16:35 | disposition hospice, inpatient (51) | DRG 871 ==
LOC: NEPE 10:35 → NEDA 14:07 → HIME 16:20 → N04B 11-18 22:50 → HIMN 11-25 21:45
PROVIDERS: ADMIT Internal Medicine; ATTEND Internal Medicine
PROC: 0T9130Z Drainage of Left Kidney with Drainage Device, Percutaneous Approach (ICD-10-PCS; principal; 2017-11-23)
PROC: 0T25X0Z Change Drainage Device in Kidney, External Approach (ICD-10-PCS; 2017-11-23)
PROC: 0TP5X0Z Removal of Drainage Device from Kidney, External Approach (ICD-10-PCS; 2017-11-23)
DX: A41.9 Sepsis, unspecified organism (principal); I21.4 Non-ST elevation (NSTEMI) myocardial infarction; I60.9 Nontraumatic subarachnoid hemorrhage, unspecified; G93.41 Metabolic encephalopathy; I13.0 Hypertensive heart and chronic kidney disease with heart failure and stage 1 through stage 4 chronic kidney disease, or unspecified chronic kidney disease; N17.9 Acute kidney failure, unspecified; A04.72 Enterocolitis due to Clostridium difficile, not specified as recurrent; C79.51 Secondary malignant neoplasm of bone; I50.22 Chronic systolic (congestive) heart failure; N39.0 Urinary tract infection, site not specified; F05 Delirium due to known physiological condition; N13.30 Unspecified hydronephrosis; C61 Malignant neoplasm of prostate; E86.0 Dehydration; R65.20 Severe sepsis without septic shock; M25.511 Pain in right shoulder; F41.9 Anxiety disorder, unspecified; E78.00 Pure hypercholesterolemia, unspecified; E11.22 Type 2 diabetes mellitus with diabetic chronic kidney disease; E11.40 Type 2 diabetes mellitus with diabetic neuropathy, unspecified; N18.9 Chronic kidney disease, unspecified; F32.9 Major depressive disorder, single episode, unspecified; I25.10 Atherosclerotic heart disease of native coronary artery without angina pectoris; I95.9 Hypotension, unspecified; N40.0 Benign prostatic hyperplasia without lower urinary tract symptoms; N13.5 Crossing vessel and stricture of ureter without hydronephrosis; D64.9 Anemia, unspecified; B95.2 Enterococcus as the cause of diseases classified elsewhere; R29.6 Repeated falls; Y73.2 Prosthetic and other implants, materials and accessory gastroenterology and urology devices associated with adverse incidents; E87.6 Hypokalemia; T83.022A Displacement of nephrostomy catheter, initial encounter; E83.39 Other disorders of phosphorus metabolism; I25.5 Ischemic cardiomyopathy; R53.81 Other malaise; Z51.5 Encounter for palliative care; E78.5 Hyperlipidemia, unspecified; I08.1 Rheumatic disorders of both mitral and tricuspid valves; W19.XXXA Unspecified fall, initial encounter; Z85.47 Personal history of malignant neoplasm of testis; Z79.899 Other long term (current) drug therapy; Z95.5 Presence of coronary angioplasty implant and graft; Z79.4 Long term (current) use of insulin; Z78.1 Physical restraint status; Z85.51 Personal history of malignant neoplasm of bladder; Z87.11 Personal history of peptic ulcer disease; Z87.440 Personal history of urinary (tract) infections; Z66 Do not resuscitate
CPT/HCPCS: 36600; 50432; 50433; 70450; 71045; 74018; 74176; 80048; 80053; 80069; 81001; 82140; 82550; 82552; 82805; 82948; 83605; 83735; 83880; 84100; 84155; 84484; 85007; 85025; 85027; 85610; 85730; 87040; 87077; 87086; 87106; 87186; 87205; 87328; 87329; 87493; 87506; 87641; 93005; 93306; 94150; 96361; 96365; 99152; 99153; C1729; C1769; C1887; J1170; J1815; J2060; J2543; J3370; J3475; J3480; J7030; J7040; J7050; J7070; P9047; Q9963; Q9967